=== PATIENT | female | born 1940 | race Caucasian/White ===

== ENCOUNTER → 2016-04-03 | Outpatient (REF) | payer MEDICARE, OTHER ==
[2016-04-03 12:16] LABS: BASO % 0.4 % (0.0-1.0); EOS # 0.1 K/mm3 (0.0-0.50); EOS % 2.4 % (0.0-3.0); LYMPH # 1.7 K/mm3 (1.5-4.5); LYMPH % 28.1 % (24.0-44.0); MEAN CORPUSCULAR HEMOGLOBIN 31.6 pg (27.0-33.0); MEAN CORPUSCULAR HGB CONC 33.2 g/dl (32.0-36.5); MEAN CORPUSCULAR VOLUME 95.2 fl (80.0-96.0); MONO # 0.3 K/mm3 (0.0-0.8); MONO % 4.3 % (0.0-5.0); NEUTROPHILS # 3.7 K/mm3 (1.8-7.7); NEUTROPHILS % 61.8 % (36.0-66.0); RED CELL DISTRIBUTION WIDTH 14.2 % (11.5-14.5); WHITE BLOOD COUNT 5.9 K/mm3 (4.0-10.0)
[2016-04-03 12:46] LABS: ALBUMIN/GLOBULIN RATIO 1.33 (1.00-1.93); ALKALINE PHOSPHATASE 104 U/L (45-117); ALT/SGPT 26 U/L (12-78); ANION GAP 11 MEQ/L (8-16); AST/SGOT 13 U/L (15-37); BILIRUBIN,TOTAL 0.9 MG/DL (0.2-1.0); BLOOD UREA NITROGEN 31 MG/DL (7-18); CARBON DIOXIDE LEVEL 26 MEQ/L (21-32); CHLORIDE LEVEL 106 MEQ/L (98-107); CHOLESTEROL LEVEL 186 MG/DL (<200); CREATININE FOR GFR 0.65 MG/DL (0.55-1.02); GLOMERULAR FILTRATION RATE > 60.0 (>39); GLUCOSE, FASTING 124 MG/DL (83-110); POTASSIUM SERUM 3.8 MEQ/L (3.5-5.1); SODIUM LEVEL 143 MEQ/L (136-145); TRIGLYCERIDES LEVEL 132 MG/DL (<150)
== END ==
LOC: M LABDRAW1 11:37
PROVIDERS: ATTEND Internal Medicine Cardiovascular Disease
DX: I50.32 Chronic diastolic (congestive) heart failure (principal); I35.0 Nonrheumatic aortic (valve) stenosis; E66.9 Obesity, unspecified

== ENCOUNTER 2016-04-13 14:17 | Inpatient (IN) | payer MEDICARE, OTHER ==
[~2016-04-13] VITALS: Ht 160 cm; Wt 83.0 kg
[2016-04-13 15:01] LABS: BASO % 0.2 % (0.0-1.0); EOS # 0.1 K/mm3 (0.0-0.50); EOS % 0.7 % (0.0-3.0); LARGE UNSTAINED CELL # 0.1 K/mm3 (0.0-0.4); LARGE UNSTAINED CELL % 1.2 % (0.0-4.0); LYMPH # 0.6 K/mm3 (1.5-4.5); LYMPH % 6.7 % (24.0-44.0); MEAN CORPUSCULAR HEMOGLOBIN 32.5 pg (27.0-33.0); MONO # 0.4 K/mm3 (0.0-0.8); MONO % 4.4 % (0.0-5.0); NEUTROPHILS # 7.6 K/mm3 (1.8-7.7); NEUTROPHILS % 86.8 % (36.0-66.0); PLATELET COUNT, AUTOMATED 126 k/mm3 (150-450); RED CELL DISTRIBUTION WIDTH 14.2 % (11.5-14.5); WHITE BLOOD COUNT 8.7 K/mm3 (4.0-10.0)
[2016-04-13 15:10] LABS: INR 1.97
--- NOTE | 2016-04-13 15:15 | REP ---
SEMIUPRIGHT AP PORTABLE CHEST: 04/13/2016 INDICATION: Chest pain. There has been a prior median sternotomy as well as valvular prosthesis within the heart. There is elevation of the left hemidiaphragm, mildly decreased from prior studies. There is left lower lobe atelectasis and/ or pleural effusion, moderate. There is small amount of right basilar atelectasis and pulmonary venous hypertension. 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 There is significant narrowing within the right subacromial space consistent with rotator cuff arthropathy. IMPRESSION: 1. Prior median sternotomy with mild cardiomegaly, unchanged. 2. Elevated left hemidiaphragm with left basilar atelectasis/infiltrate superimposed on pleural effusion. 3. Small amount of right basilar atelectasis. Pulmonary venous hypertension.. MTDD
[2016-04-13] MEDS ORDERED: MORPHINE 2 MG/ML 1ML SYRINGE As Ordered ONE (15:18)
[2016-04-13] MEDS ORDERED: ASPIRIN 81 MG CHEW TABLET As Ordered ONE (15:18)
[2016-04-13 15:32] LABS: ANION GAP 11 MEQ/L (8-16); BLOOD UREA NITROGEN 19 MG/DL (7-18); CARBON DIOXIDE LEVEL 27 MEQ/L (21-32); CHLORIDE LEVEL 97 MEQ/L (98-107); CREATININE FOR GFR 0.77 MG/DL (0.55-1.02); GLOMERULAR FILTRATION RATE > 60.0 (>39); GLUCOSE, FASTING 165 MG/DL (83-110); POTASSIUM SERUM 3.4 MEQ/L (3.5-5.1); SODIUM LEVEL 135 MEQ/L (136-145)
[2016-04-13] MEDS ORDERED: ISOVUE-370 76% 100ML VIAL (Q9967) As Ordered ONE ×2 (16:11→16:23)
--- NOTE | 2016-04-13 17:26 | REP ---
CTA CHEST, 04/13/2016: INDICATION: Pleuritic chest pain, elevated D-dimer. COMPARISON: Portable chest also performed earlier today on 04/13/2016 at 2:34 pm. TECHNIQUE: Following dynamic IV contrast administration with 75 mL Isovue-370 mg/mL 3 mm contiguous spiral axial sections were performed through the chest. FINDINGS: There has been a prior median sternotomy and there is a valvular prosthesis within the region of the aortic valve. The thoracic aorta is without aneurysm or dissection. Moderate calcifications are seen in the aortic arch. There is homogeneous opacification of the central pulmonary arteries without filling defects or findings to suggest pulmonary artery embolus. There is dense consolidation within the left lower lobe and lingula consistent with infiltrate and a small amount of atelectasis. There are no pleural effusions. A small amount of right basilar atelectasis and/or fibrotic scarring is present. Visualized portions of liver within normal limits. The spleen is incompletely included in view, but mildly enlarged measuring greater than 13.5 cm in length. The stomach is contracted in its visualized portions. Moderate atherosclerotic changes are noted in the abdominal aorta, which is ectatic. There is thickening of the adrenal glands which cannot be adequately assessed in the presence of IV contrast. Visualized portion of the pancreas within kian limits. Visualized portions of kidneys without hydronephrosis. IMPRESSION: 1. No visualized pulmonary artery emboli. 2. Dense consolidation within the left lower lobe and to a lesser extent lingula. consistent with infiltrate. Also there are a small amount of superimposed atelectatic changes. 3. Fibroatelectatic changes in the right base and the right middle lobe. 4. Thickening of adrenal glands, yet they are indeterminate, and cannot be adequately evaluated in the presence of IV contrast. Unreviewed MTDD
[2016-04-13] MEDS ORDERED: cefTRIAXone SOD 1 GM VIAL (J0696) As Ordered ONE (18:13)
[2016-04-13] MEDS ORDERED: DOXYCYCLINE HYCLATE 100 MG TAB As Ordered ONE (18:13)
[2016-04-13] MEDS ORDERED: traMADol 50 MG TAB As Ordered ONE (18:14)
--- NOTE | 2016-04-13 21:21 | ECGEPIP ---
Stationary ECG Study [facility] - ED Test Date: 2016-04-13 Pat Name: LAURA BRIDGES Department: Room: - Gender: F Hand Singer: [email or web address] : 1940 Requested By: ANA YANCEY Order Number: [id number] Reading MD: Rudy Aguero Measurements Intervals [place] Rate: 83 P: 24 IA: 176 QRS: -20 QRSD: 94 T: 14 QT: 379 QTc: 447 Interpretive Statements SINUS RHYTHM LEFT ATRIAL ENLARGEMENT POSSIBLE LEFT VENTRICULAR HYPERTROPHY INFERIOR MYOCARDIAL INFARCTION, PROBABLY OLD Electronically Signed On 04-13-2016 21:21:34 EST by Rudy Aguero
--- NOTE | 2016-04-13 21:21 | ECGEPIP ---
Stationary ECG Study [facility] - ED Test Date: 2016-04-13 Pat Name: LAURA BRIDGES Department: Room: - Gender: F Time Checker: rn : 1940 Requested By: Anita Hensley Order Number: [id number] Reading MD: Rudy Aguero Measurements Intervals [place] Rate: 83 P: 21 [place]: 172 QRS: -19 QRSD: 97 T: 12 QT: 383 QTc: 452 Interpretive Statements SINUS RHYTHM LEFT ATRIAL ENLARGEMENT LEFT VENTRICULAR HYPERTROPHY INFERIOR MYOCARDIAL INFARCTION, OF INDETERMINATE AGE NO PRIORS Electronically Signed On 04-13-2016 21:21:05 EST by Rudy Aguero
--- NOTE | 2016-04-13 21:34 | ECGEPIP ---
Stationary ECG Study [facility] - ED Test Date: 2016-04-13 Pat Name: LAURA BRIDGES Department: Room: - Gender: F Brass Burnisher: leola : 1940 Requested By: Anita Hensley Order Number: [id number] Reading MD: Rudy Aguero Measurements Intervals [place] Rate: 86 P: -20 DE: 140 QRS: -17 QRSD: 94 T: 15 QT: 361 QTc: 433 Interpretive Statements SINUS RHYTHM LAE MODERATE VOLTAGE CRITERIA FOR LVH, CONSIDER NORMAL VARIANT POSSIBLE PRIOR INFERIOR INFARCT Electronically Signed On 04-13-2016 21:34:23 EST by Rudy Aguero
[2016-04-13] MEDS ORDERED: IPRATROPIUM 0.5MG/ALBUTEROL 2.5MG INH SOL UD 3ML (DUONEB)(J7620) As Ordered ONE (22:23)
[2016-04-14] VITALS (7 sets, daily range): BP systolic 125–147; BP diastolic 57–72
[2016-04-14] MEDS ORDERED: SPIR25TA2 PO (00:23)
[2016-04-14] MEDS ORDERED: NEXI40CA PO (00:23)
[2016-04-14] MEDS ORDERED: CHLO125TA PO (00:23)
[2016-04-14] MEDS ORDERED: METO-207 PO (00:23)
[2016-04-14] MEDS ORDERED: ATOR40TA PO (00:23)
[2016-04-14] MEDS ORDERED: COUM1TAB14 PO (00:23)
[2016-04-14] MEDS ORDERED: ASPI81TA7 PO (00:23)
[2016-04-14] MEDS ORDERED: NITR4TASL SL (00:23)
[2016-04-14] MEDS ORDERED: TYLE650T35 PO (00:23)
[2016-04-14] MEDS ORDERED: TRAM50TA2 PO (00:23)
[2016-04-14] MEDS ORDERED: ONDANSETRON 4MG/2ML VIAL (J2405) IV PRN (00:30)
[2016-04-14] MEDS ORDERED: NITROGLYCERIN 0.4 MG SUBL TABLET SL PRN (00:45)
--- NOTE | 2016-04-14 01:41 | EDDOCDS ---
Physician Documentation [facility] Name: Laureen Bruce Age: 75 yrs Sex: Female : 1940 Arrival Date: 04/13/2016 Time: 14:17 Bed OBSERVATION Private : Tanika Disposition: 04/14/16 00:49 Hospitalization ordered by Matty Parada for Inpatient Admission. Preliminary diagnosis are Other pneumonia, unspecified organism, Hypoxemia. - Bed requested for PCU. - Status is Inpatient Admission. jf3 - Condition is Stable. - Problem is an acute exacerbation. - Symptoms have improved. Historical: - Allergies: Heparin (Anaphylaxis); - Home Meds: 1. atorvastatin 40 mg oral tab 1 tab nightly 2. Chlorthalidone 12.5 mg Oral 1 tab every -- 3. Coumadin 4 mg Oral tab 1 tab once daily 4. Meclizine Oral 1 tab 3 times per day as needed 5. metoprolol succinate 50 mg tab 1 tab once daily 6. Nexium 40 mg Oral cpDR 1 cap once daily 7. nitroglycerin 0.4 mg SL subl 1 tab every 5 minutes x 3 as needed 8. spironolactone 12.5mg Oral tab 1 tab once daily 9. tramadol 50 mg Oral tab 1 tab every 4-6 hours as needed - PMHx: Diabetes - NIDDM: uncontrolled; DVT; GERD; Hypercholesterolemia; Hypertension; AL; - PSHx: Bilateral Hip Replacement; Cholecystectomy; CABG; Aortic Valve Replacement, Mechanical; - Social history: Smoking status: Patient states was never smoker of tobacco. No barriers to communication noted, The patient speaks fluent Bengali, Speaks appropriately for age. - Family history: Not pertinent. - : The pt / caregiver states he / she is on anticoagulants: coumadin. Home medication list is obtained from the patient. - Exposure Risk Screening:: None identified. Vital Signs: 04/13 14:19 BP 104 / 62; Pulse 102; Resp 18 S; Temp 98.2(O); Pulse Ox 96% on R/A; Weight 72.57 kg / gr2 159.99 lbs (R); Height 5 ft. 5 in. (165.10 cm) (R); Pain 8/10; 14:33 Pulse 92 MON; Pulse Ox 99% ; jf3 14:34 BP 110 / 63 (auto/); jf3 15:02 Pulse 82 MON; Pulse Ox 93% ; jf3 15:04 BP 113 / 60 (auto/); jf3 15:17 Pulse 84 MON; Pulse Ox 93% ; jf3 15:19 BP 111 / 60 (auto/); jf3 15:21 Pulse 84 MON; Pulse Ox 92% ; jf3 15:22 BP 108 / 60 (auto/); jf3 15:48 Pulse 84 MON; Pulse Ox 91% ; jf3 15:49 BP 120 / 61 (auto/); jf3 16:34 BP 105 / 53 (auto/); jf3 16:37 Pulse 86 MON; Pulse Ox 94% ; jf3 16:48 Pulse 84 MON; Pulse Ox 94% ; jf3 16:49 BP 112 / 55 (auto/); jf3 17:04 BP 112 / 57 (auto/); jf3 17:04 Pulse 82 MON; Pulse Ox 93% ; jf3 17:14 Pulse 82 MON; Pulse Ox 94% ; jf3 17:19 BP 111 / 58 (auto/); jf3 17:33 Pulse 84 MON; Pulse Ox 95% ; jf3 17:34 BP 115 / 57 (auto/); jf3 17:48 Pulse 82 MON; Pulse Ox 93% ; jf3 17:49 BP 118 / 67 (auto/); jf3 18:04 BP 115 / 59 (auto/); jf3 18:05 Pulse 82 MON; Pulse Ox 93% ; jf3 18:19 BP 115 / 60 (auto/); jf3 18:19 Pulse 84 MON; Pulse Ox 92% ; jf3 18:24 Pulse 82 MON; Pulse Ox 96% ; jf3 18:25 BP 119 / 58 (auto/); jf3 18:32 Pulse 86 MON; Pulse Ox 92% ; jf3 18:34 BP 122 / 56 (auto/); jf3 18:48 Pulse 84 MON; Pulse Ox 92% ; jf3 18:49 BP 124 / 64 (auto/); jf3 19:03 Pulse 86 MON; Pulse Ox 91% ; jf3 19:04 BP 121 / 65 (auto/); jf3 19:19 BP 125 / 63 (auto/); jf3 19:19 Pulse 84 MON; Pulse Ox 93% ; jf3 19:28 Pulse 78 MON; Pulse Ox 92% ; jf3 19:34 BP 125 / 67 (auto/); jf3 19:49 BP 131 / 66 (auto/); jf3 19:50 Pulse 86 MON; Pulse Ox 92% ; jf3 20:04 BP 129 / 61 (auto/); jf3 20:04 Pulse 88 MON; Pulse Ox 92% ; jf3 20:19 BP 125 / 64 (auto/); jf3 20:21 Pulse 88 MON; Pulse Ox 93% ; jf3 21:17 BP 157 / 103 (auto/); jf3 21:19 Pulse 96 MON; Pulse Ox 96% ; jf3 21:31 Pulse 82 MON; Pulse Ox 98% ; jf3 21:32 BP 143 / 88 (auto/); jf3 21:46 Pulse 82 MON; Pulse Ox 98% ; jf3 21:47 BP 135 / 85 (auto/); jf3 22:01 Pulse 88 MON; Pulse Ox 98% ; jf3 22:02 BP 129 / 103 (auto/); jf3 22:17 BP 144 / 93 (auto/); jf3 22:17 Pulse 86 MON; Pulse Ox 98% ; jf3 22:31 Pulse 98 MON; Pulse Ox 97% ; jf3 22:32 BP 155 / 103 (auto/); jf3 22:32 Pulse 82 MON; Pulse Ox 96% ; jf3 22:34 BP 124 / 63 (auto/); jf3 22:35 Pulse 102 MON; Pulse Ox 97% ; jf3 22:36 BP 152 / 88 (auto/); jf3 22:46 Pulse 94 MON; Pulse Ox 97% ; jf3 22:47 BP 141 / 86 (auto/); jf3 22:47 Pulse 88 MON; Pulse Ox 94% ; jf3 22:49 BP 130 / 65 (auto/); jf3 23:03 Pulse 88 MON; Pulse Ox 93% ; jf3 23:04 BP 129 / 67 (auto/); jf3 23:16 BP 145 / 90; Pulse 90; Resp 18; Temp 98(TE); Pulse Ox 98% on R/A; jf3 23:19 BP 124 / 64 (auto/); jf3 23:19 Pulse 90 MON; Pulse Ox 94% ; jf3 23:34 BP 131 / 67 (auto/); jf3 23:35 Pulse 88 MON; Pulse Ox 94% ; jf3 04/14 00:04 BP 125 / 65 (auto/); jf3 00:04 Pulse 86 MON; Pulse Ox 95% ; jf3 00:19 BP 129 / 67 (auto/); jf3 00:19 Pulse 90 MON; Pulse Ox 96% ; jf3 00:33 Pulse 90 MON; Pulse Ox 94% ; jf3 00:34 BP 127 / 64 (auto/); jf3 00:49 BP 125 / 62 (auto/); jf3 00:49 Pulse 86 MON; Pulse Ox 94% ; jf3 00:59 Pulse 96 MON; Pulse Ox 95% ; jf3 01:04 BP 136 / 67 (auto/); jf3 01:18 Pulse 82 MON; Pulse Ox 95% ; jf3 01:19 BP 129 / 61 (auto/); jf3 01:25 BP 130 / 70; Pulse 86; Resp 18; Temp 99.1(O); Pulse Ox 95% 2 lpm ; Pain 8/10; jf3 04/13 14:19 Body Mass Index 26.63 (72.57 kg, 165.10 cm) gr2 MDM: 04/13 14:27 Country Singer/Pulse Ox/q 30 min VS ordered. sd1 14:27 IV Saline Lock ordered. sd1 14:27 Rhythm Strip to chart ordered. sd1 14:27 Undress patient appropriately for examination ordered. sd1 14:27 B-Type Natiuretic Peptide Ordered. EDMS 14:27 Basic Metabolic Profile Ordered. EDMS 14:27 CBC with Diff Ordered. EDMS 14:27 Cardiac Injury Profile Ordered. EDMS 14:27 Troponin Ordered. EDMS 14:29 portable chest Ordered. EDMS 14:29 ECG WITH READING ER PHYS+CARDIAG ordered. ED[facility] Order ordered. sd1 14:49 Aspirin Chewable Tablet 324 mg PO once ordered. sd1 14:50 morphine 2 mg IVP every 15 minutes; Document pain score/vitals after each dose (Hold if sd1 SBP < 90mmHg) x3 ordered. 14:51 PT/INR Ordered. EDMS 15:08 Misc Route Delivery Clerk Order complete. deg 15:15 [facility] [place] was scanned into [employer] and attached to record. jp5 15:15 Financial registration complete. jp5 15:26 B-Type Natiuretic Peptide Reviewed. sd1 15:26 CBC with Diff Reviewed. sd1 15:26 PT/INR Reviewed. sd1 15:29 portable chest Reviewed. sd1 15:35 Basic Metabolic Profile Reviewed. sd1 15:35 Cardiac Injury Profile Reviewed. sd1 15:35 Troponin Reviewed. sd1 15:48 D-DIMER QUANT Ordered. EDMS 15:58 Repeat EKG (put time details section) ordered. sd1 16:02 Repeat EKG (put time details section) complete. deg 16:02 ECG WITH READING ER PHYS ordered. EDMS 16:08 PT/INR Reviewed. sd1 16:08 D-DIMER QUANT Reviewed. sd1 16:10 CT Chest Angio R/O PE Ordered. EDMS 16:50 Redraw CIP &Troponin (put time in details section) ordered. sd1 16:50 Repeat EKG (put time details section) ordered. sd1 17:05 Redraw CIP &Troponin (put time in details section) complete. deg 17:05 Repeat EKG (put time details section) complete. deg 17:07 ECG WITH READING ER PHYS ordered. EDMS 17:07 CARDIAC MARKER PANEL Ordered. EDMS 17:33 cefTRIAXone 1 grams IVPB once over 30 mins; dilute in 50mL of NS or D5W ordered. sd1 17:34 Doxycycline 100 mg PO once ordered. sd1 17:35 traMADol 50 mg PO once ordered. sd1 21:36 CARDIAC MARKER PANEL Reviewed. mm11 21:36 CT Chest Angio R/O PE Reviewed. mm11 22:07 Albuterol-Ipratropium 3 ml Inhalation once ordered. mm11 22:07 Call Respiratory ordered. mm11 22:13 Call Respiratory complete. tmm1 23:26 BED REQUEST+ADM ordered. EDMS 04/14 00:33 INFLUENZA A&B RAPID ANTIGEN Ordered. EDMS 00:33 SPUTUM CULTURE AND GRAM STAIN Ordered. EDMS 00:34 Admission / Observation Status ordered. EDMS 00:34 NO ADDED SALT DIET ordered. EDMS 00:54 BLOOD CULTURES Ordered. EDMS 00:54 BLOOD CULTURES Ordered. EDMS 00:56 PROTHROMBIN TIME PROFILE\E\INR Ordered. EDMS 00:56 CARDIAC MARKER PANEL Ordered. EDMS 00:56 BASIC METABOLIC PROFILE Ordered. EDMS 00:56 CBC WITH DIFFERENTIAL Ordered. EDMS Administered Medications: 04/13 15:16 CANCELLED (Patient Refused): Ondansetron 4 mg IVP once jf3 15:25 Drug: Aspirin 243 mg [aspirin 81 mg chewable tablet (3 tabs)] {Note: pt took 1 81mg ASA jf3 earlier today. Dr Frazier aware.} Route: PO; 15:35 Not Given (Patient Refused): morphine 2 mg IVP every 15 minutes; Document pain jf3 score/vitals after each dose (Hold if SBP < 90mmHg) x3 18:30 Drug: cefTRIAXone 1 grams [ceftriaxone 1 gram solution for injection] Route: IVPB; jf3 Infused Over: 30 mins; Site: left antecubital; 20:24 Follow up: Response: No Adverse Reaction; IV Intake: 50ml jf3 18:30 Drug: Doxycycline 100 mg [doxycycline hyclate 100 mg tablet (1 tabs)] Route: PO; jf3 20:24 Follow up: Response: No Adverse Reaction jf3 18:30 Drug: traMADol 50 mg [tramadol 50 mg tablet (1 tabs)] Route: PO; jf3 20:24 Follow up: Response: Pain is decreased jf3 22:27 Drug: Albuterol-Ipratropium 3 ml [ipratropium-albuterol 0.5 mg-3 mg(2.5 mg base)/3 mL jc3 nebulization soln (3 mL)] Route: Inhalation; Signatures: Dispatcher [employer] EDMS Anita Hensley MD MD sd1 Anneliese Mccurdy, Kst Operator Unit deg Aranza Pleitez, RN RN Matthew De La Rosa RN RN mlb1 Onel Beard, DO mm11 McLear, Lora, RADIOLOGY SERVICES MANAGER RADIOLOGY SERVICES MANAGER tmm1 Laurie Velasquez jp5 Wilfredo Bettencourt,RN RN jf3 Leonardo Engel jc3 The chart was reviewed and I authenticate all verbal orders and agree with the evaluation and treatment provided.Corrections: (The following items were deleted from the chart) 15:16 14:50 Ondansetron 4 mg IVP once ordered. sd1 jf3 15:48 15:42 D-DIMER QUANT+LAB ordered. EDMS EDMS Attachments: 15:15 [facility] Payment Agreement jp5 MTDD
--- NOTE | 2016-04-14 01:42 | EDDOCDS ---
Nurse's Notes [facility] Name: Laureen Bruce Age: 75 yrs Sex: Female : 1940 Arrival Date: 04/13/2016 Time: 14:17 Bed OBSERVATION Private MD: Tanika Diagnosis: Other pneumonia, unspecified organism;Hypoxemia Presentation: 04/13 14:25 Presenting complaint: Patient states: Sub-sternal chest pain does not radiate began at mlb1 noon today. Aspirin was not taken prior to arrival. Adult Sepsis Screening: The patient does not have new or worsening altered mentation. Patient's respiratory rate is less than 22. Systolic blood pressure is greater than 100. Patient has a qSOFA score of 0- Negative Sepsis Screen. Suicide/Homicide risk assessment- the patient denies having any suicidal and/or homicidal ideations and does not present with any other emotional, behavioral or mental health complaints. Status: Patient is not a special services agent or dependent. Transition of care: patient was not received from another setting of care. 14:25 Acuity: FRANKY Level 2 mlb1 14:25 Method Of Arrival: Walkin/Carried/Asstd mlb1 Triage Assessment: 14:28 General: Appears in no apparent distress, Behavior is anxious, cooperative. Pain: mlb1 Location: mid-sternal area Pain currently is 5 out of 10 on a pain scale. Quality of pain is described as dull. The patient is triaged at the bedside. See Assessment in Nurses Notes section of ED record. Respiratory: Airway is patent Respiratory effort is even, unlabored, Reports pain with movement pain with respiration. 04/14 01:40 Cardiovascular: Chest pain is described as mild, radiates Does not radiate. episodes jf3 began . Historical: - Allergies: Heparin (Anaphylaxis); - Home Meds: 1. atorvastatin 40 mg oral tab 1 tab nightly 2. Chlorthalidone 12.5 mg Oral 1 tab every -- 3. Coumadin 4 mg Oral tab 1 tab once daily 4. Meclizine Oral 1 tab 3 times per day as needed 5. metoprolol succinate 50 mg tab 1 tab once daily 6. Nexium 40 mg Oral cpDR 1 cap once daily 7. nitroglycerin 0.4 mg SL subl 1 tab every 5 minutes x 3 as needed 8. spironolactone 12.5mg Oral tab 1 tab once daily 9. tramadol 50 mg Oral tab 1 tab every 4-6 hours as needed - PMHx: Diabetes - NIDDM: uncontrolled; DVT; GERD; Hypercholesterolemia; Hypertension; UT; - PSHx: Bilateral Hip Replacement; Cholecystectomy; CABG; Aortic Valve Replacement, Mechanical; - Social history: Smoking status: Patient states was never smoker of tobacco. No barriers to communication noted, The patient speaks fluent Argentine, Speaks appropriately for age. - Family history: Not pertinent. - : The pt / caregiver states he / she is on anticoagulants: coumadin. Home medication list is obtained from the patient. - Exposure Risk Screening:: None identified. Screenin/19 14:56 Screening information is obtained from the patient. Fall risk: No risks identified. jf3 Assistance ADL's: requires no assistance with activities of daily living. Abuse/DV Screen: The patient / caregiver reports he/she is: not in a situation that causes fear, pain or injury. Nutritional screening: No deficits noted. Advance Directives: Currently, there is a health care proxy, Brennan Roy, son. There is no active DNR order. home support is adequate. Assessment: 14:56 Adult Sepsis Screening: The patient does not have new or worsening altered mentation. jf3 Patient's respiratory rate is less than 22. Systolic blood pressure is greater than 100. Patient has a qSOFA score of 0- Negative Sepsis Screen. General: Appears in no apparent distress, comfortable, Behavior is cooperative. Pain: Location: mid-sternal area Pain currently is 5 out of 10 on a pain scale. Neurological: Level of Consciousness is awake, alert, Oriented to person, place, time. Cardiovascular: Capillary refill < 3 seconds Heart tones S1 S2 present Rhythm is sinus rhythm No ectopy. Chest pain is described as mild. Respiratory: Airway is patent Respiratory effort is even, unlabored, Respiratory pattern is regular, symmetrical, Breath sounds are clear bilaterally. Respiratory: Reports cough that is pain with respiration Denies shortness of breath. GI: Abdomen is obese, Bowel sounds present X 4 quads. Abd is soft and non tender X 4 quads. Reports nausea. Derm: Skin is normal. 16:00 General: Appears in no apparent distress, comfortable, Behavior is cooperative, Pt jf3 resting supine on stretcher. respirations easy and unlabored. Pt c/o pain but does not want pain medication. Call light in reach. Will continue to monitor. 17:13 General: Appears in no apparent distress, comfortable, Behavior is cooperative, Pt jf3 resting supine on stretcher. Respirations easy and unlabored. Call light in reach. Will continue to monitor. 18:15 General: Appears in no apparent distress, comfortable, Behavior is cooperative, Pt jf3 resting supine on stretcher. Respirations easy and unlabored. Call light in reach. Will continue to monitor. 19:15 General: Appears in no apparent distress, comfortable, Behavior is cooperative. jf3 Neurological: Level of Consciousness is awake, alert. Respiratory: Airway is patent Respiratory effort is even, unlabored, Respiratory pattern is regular, symmetrical. 20:24 General: Appears in no apparent distress, comfortable, Behavior is cooperative, Pt jf3 restring supine on stretcher. respirations easy and unlabored. Pt states pain has decreased but she is still having some pain, states she does not want anything stronger for pain other than her tramadol. 21:30 General: Appears in no apparent distress, comfortable, Behavior is cooperative, resting jf3 supine on stretcher. respirations easy and unlabored. Will continue to monitor. 22:30 General: Appears in no apparent distress, Behavior is cooperative. Neurological: Level jf3 of Consciousness is awake, alert, Oriented to person, place, time. Cardiovascular: Capillary refill < 3 seconds. Respiratory: Airway is patent Respiratory effort is even, unlabored, Respiratory pattern is regular, symmetrical. 04/14 00:30 General: Appears in no apparent distress, comfortable, Behavior is cooperative. jf3 Neurological: Level of Consciousness is awake, alert, Oriented to person, place, time. Cardiovascular: Capillary refill < 3 seconds. Respiratory: Airway is patent Respiratory effort is even, unlabored, Respiratory pattern is regular, symmetrical. 01:30 General: Appears in no apparent distress, comfortable, Behavior is cooperative. Pain: jf3 Pain currently is 8 out of 10 on a pain scale. Neurological: Level of Consciousness is awake, alert, Oriented to person, place, time. Cardiovascular: Capillary refill < 3 seconds Heart tones S1 S2 present. Respiratory: Airway is patent Respiratory effort is even, unlabored, Respiratory pattern is regular, symmetrical. Derm: Skin is pink, warm & dry. Vital Signs: 04/13 14:19 BP 104 / 62; Pulse 102; Resp 18 S; Temp 98.2(O); Pulse Ox 96% on R/A; Weight 72.57 kg gr2 (R); Height 5 ft. 5 in. (165.10 cm) (R); Pain 8/10; 14:33 Pulse 92 MON; Pulse Ox 99% ; jf3 14:34 BP 110 / 63 (auto/); jf3 15:02 Pulse 82 MON; Pulse Ox 93% ; jf3 15:04 BP 113 / 60 (auto/); jf3 15:17 Pulse 84 MON; Pulse Ox 93% ; jf3 15:19 BP 111 / 60 (auto/); jf3 15:21 Pulse 84 MON; Pulse Ox 92% ; jf3 15:22 BP 108 / 60 (auto/); jf3 15:48 Pulse 84 MON; Pulse Ox 91% ; jf3 15:49 BP 120 / 61 (auto/); jf3 16:34 BP 105 / 53 (auto/); jf3 16:37 Pulse 86 MON; Pulse Ox 94% ; jf3 16:48 Pulse 84 MON; Pulse Ox 94% ; jf3 16:49 BP 112 / 55 (auto/); jf3 17:04 BP 112 / 57 (auto/); jf3 17:04 Pulse 82 MON; Pulse Ox 93% ; jf3 17:14 Pulse 82 MON; Pulse Ox 94% ; jf3 17:19 BP 111 / 58 (auto/); jf3 17:33 Pulse 84 MON; Pulse Ox 95% ; jf3 17:34 BP 115 / 57 (auto/); jf3 17:48 Pulse 82 MON; Pulse Ox 93% ; jf3 17:49 BP 118 / 67 (auto/); jf3 18:04 BP 115 / 59 (auto/); jf3 18:05 Pulse 82 MON; Pulse Ox 93% ; jf3 18:19 BP 115 / 60 (auto/); jf3 18:19 Pulse 84 MON; Pulse Ox 92% ; jf3 18:24 Pulse 82 MON; Pulse Ox 96% ; jf3 18:25 BP 119 / 58 (auto/); jf3 18:32 Pulse 86 MON; Pulse Ox 92% ; jf3 18:34 BP 122 / 56 (auto/); jf3 18:48 Pulse 84 MON; Pulse Ox 92% ; jf3 18:49 BP 124 / 64 (auto/); jf3 19:03 Pulse 86 MON; Pulse Ox 91% ; jf3 19:04 BP 121 / 65 (auto/); jf3 19:19 BP 125 / 63 (auto/); jf3 19:19 Pulse 84 MON; Pulse Ox 93% ; jf3 19:28 Pulse 78 MON; Pulse Ox 92% ; jf3 19:34 BP 125 / 67 (auto/); jf3 19:49 BP 131 / 66 (auto/); jf3 19:50 Pulse 86 MON; Pulse Ox 92% ; jf3 20:04 BP 129 / 61 (auto/); jf3 20:04 Pulse 88 MON; Pulse Ox 92% ; jf3 20:19 BP 125 / 64 (auto/); jf3 20:21 Pulse 88 MON; Pulse Ox 93% ; jf3 21:17 BP 157 / 103 (auto/); jf3 21:19 Pulse 96 MON; Pulse Ox 96% ; jf3 21:31 Pulse 82 MON; Pulse Ox 98% ; jf3 21:32 BP 143 / 88 (auto/); jf3 21:46 Pulse 82 MON; Pulse Ox 98% ; jf3 21:47 BP 135 / 85 (auto/); jf3 22:01 Pulse 88 MON; Pulse Ox 98% ; jf3 22:02 BP 129 / 103 (auto/); jf3 22:17 BP 144 / 93 (auto/); jf3 22:17 Pulse 86 MON; Pulse Ox 98% ; jf3 22:31 Pulse 98 MON; Pulse Ox 97% ; jf3 22:32 BP 155 / 103 (auto/); jf3 22:32 Pulse 82 MON; Pulse Ox 96% ; jf3 22:34 BP 124 / 63 (auto/); jf3 22:35 Pulse 102 MON; Pulse Ox 97% ; jf3 22:36 BP 152 / 88 (auto/); jf3 22:46 Pulse 94 MON; Pulse Ox 97% ; jf3 22:47 BP 141 / 86 (auto/); jf3 22:47 Pulse 88 MON; Pulse Ox 94% ; jf3 22:49 BP 130 / 65 (auto/); jf3 23:03 Pulse 88 MON; Pulse Ox 93% ; jf3 23:04 BP 129 / 67 (auto/); jf3 23:16 BP 145 / 90; Pulse 90; Resp 18; Temp 98(TE); Pulse Ox 98% on R/A; jf3 23:19 BP 124 / 64 (auto/); jf3 23:19 Pulse 90 MON; Pulse Ox 94% ; jf3 23:34 BP 131 / 67 (auto/); jf3 23:35 Pulse 88 MON; Pulse Ox 94% ; jf3 04/14 00:04 BP 125 / 65 (auto/); jf3 00:04 Pulse 86 MON; Pulse Ox 95% ; jf3 00:19 BP 129 / 67 (auto/); jf3 00:19 Pulse 90 MON; Pulse Ox 96% ; jf3 00:33 Pulse 90 MON; Pulse Ox 94% ; jf3 00:34 BP 127 / 64 (auto/); jf3 00:49 BP 125 / 62 (auto/); jf3 00:49 Pulse 86 MON; Pulse Ox 94% ; jf3 00:59 Pulse 96 MON; Pulse Ox 95% ; jf3 01:04 BP 136 / 67 (auto/); jf3 01:18 Pulse 82 MON; Pulse Ox 95% ; jf3 01:19 BP 129 / 61 (auto/); jf3 01:25 BP 130 / 70; Pulse 86; Resp 18; Temp 99.1(O); Pulse Ox 95% 2 lpm ; Pain 8/10; jf3 04/13 14:19 Body Mass Index 26.63 (72.57 kg, 165.10 cm) gr2 Vitals: 04/13 14:19 Log In Time: April 13, 2016 at 14:19. RN notified that patient meets Red Flag gr2 criteria. ED Course: 14:19 Patient visited by Nabor Son. gr2 14:19 Tanika is Private Physician. gr2 14:19 Patient moved to Waiting gr2 14:20 Patient visited by Nabor Son. gr2 14:20 Patient moved to Pre RCE gr2 14:21 Patient moved to 7 gr2 14:25 Patient visited by Matthew Liz, RN. mlb1 14:26 Triage Initiated mlb1 14:29 Patient visited by Matthew Liz, DEN. mlb1 14:38 Anita Hensley MD is Attending Physician. sd1 14:41 Patient visited by Anita Hensley MD. sd1 14:49 EKG done. (by ED staff). Reviewed by Anita Hensley MD. rn1 14:55 PT/INR Sent. jf3 14:56 The patient / caregiver is instructed regarding the plan of care and ED course. Cardiac jf3 monitor on. Pulse ox on. NIBP on. 14:56 B-Type Natiuretic Peptide Sent. jf3 14:56 Basic Metabolic Profile Sent. jf3 14:56 CBC with Diff Sent. jf3 14:56 Cardiac Injury Profile Sent. jf3 14:56 Troponin Sent. jf3 14:56 Inserted saline lock: 20 gauge in left antecubital area The patient tolerated the jf3 procedure well. No procedures done that require assistance. 15:00 Patient visited by Wilfredo Bettencourt RN. jf3 15:15 [facility] Payment Agreement was scanned into [employer] and attached to record. jp5 15:26 portable chest Returned. EDMS 15:27 Patient visited by Zonia Silva PCA. jlf 16:17 Patient visited by Zonia Silva PCA. jlf 16:17 Patient visited by Zonia Silva PCA. jlf 16:17 EKG done. (by ED staff). Reviewed by Anita Hensley MD. jlf 16:53 Patient visited by Zonia Silva PCA. jlf 17:14 Patient visited by Wilfredo Bettencourt RN. jf3 17:35 Patient visited by Zonia Silva PCA. jlf 17:36 Patient moved to OBSERVATION sd1 18:10 CT Chest Angio R/O PE Returned. EDMS 18:40 Patient visited by Wilfredo Bettencourt RN. jf3 19:22 Attending Physician role handed off by Anita Hensley MD mm11 19:22 Onel Beard DO is Attending Physician. mm11 20:24 CARDIAC MARKER PANEL Sent. jf3 20:26 Patient visited by Wilfredo Bettencourt RN. jf3 20:33 EKG done. (by ED staff). Reviewed by Onel Beard DO. jmv 20:34 Patient visited by Clifford Traylor PCA. jmv 21:58 EKG-ADULT Returned. EDMS 21:58 ECG WITH READING ER PHYS Returned. EDMS 21:59 ECG WITH READING ER PHYS Returned. EDMS 22:39 Cammie Maya,RN is Primary Nurse. cf2 22:39 Patient visited by Cammie Maya RN. cf2 23:05 portable chest Returned. EDMS 23:06 CT Chest Angio R/O PE Returned. EDMS 04/14 00:48 Matty Parada MD is Hospitalizing Provider. mm11 Administered Medications: 04/13 15:16 CANCELLED (Patient Refused): Ondansetron 4 mg IVP once jf3 15:25 Drug: Aspirin 243 mg [aspirin 81 mg chewable tablet (3 tabs)] {Note: pt took 1 81mg ASA jf3 earlier today. Dr Frazier aware.} Route: PO; 15:35 Not Given (Patient Refused): morphine 2 mg IVP every 15 minutes; Document pain jf3 score/vitals after each dose (Hold if SBP < 90mmHg) x3 18:30 Drug: cefTRIAXone 1 grams [ceftriaxone 1 gram solution for injection] Route: IVPB; jf3 Infused Over: 30 mins; Site: left antecubital; 20:24 Follow up: Response: No Adverse Reaction; IV Intake: 50ml jf3 18:30 Drug: Doxycycline 100 mg [doxycycline hyclate 100 mg tablet (1 tabs)] Route: PO; jf3 20:24 Follow up: Response: No Adverse Reaction jf3 18:30 Drug: traMADol 50 mg [tramadol 50 mg tablet (1 tabs)] Route: PO; jf3 20:24 Follow up: Response: Pain is decreased jf3 22:27 Drug: Albuterol-Ipratropium 3 ml [ipratropium-albuterol 0.5 mg-3 mg(2.5 mg base)/3 mL jc3 nebulization soln (3 mL)] Route: Inhalation; Intake: 20:24 IV: 50.00ml; Total: 50.00ml. jf3 RT: 22:27 Initial Med Neb Given as ordered. O2 via nasal cannula \T\ 2L/min. Respiratory: Breath jc3 sounds are coarse bilaterally. Breath sounds are diminished. 22:27 O2 via Patient was on room air with a SpO2 of 88-90. Put patient on 2L NC, SpO2 - 94%. jc3 22:33 O2 via leaving patient on room air to see if SpO2 will improve post nebulizer treatment.jc3 04/14 00:15 O2 via placed patient on 2L NC. SpO2 82-88 on room air. jc3 Order Results: Lab Order: B-Type Natiuretic Peptide; SPEC'M 04/13/16 14:54 Test: BRAIN NATRIURETIC PEPTIDE; Value: 332; Range: <100; Abnormal: Above high normal; Units: PG/ML; Status: F Lab Order: Basic Metabolic Profile; SPEC'M 04/13/16 14:54 Test: GLUCOSE, FASTING; Value: 165; Range: 83-110; Abnormal: Above high normal; Units: MG/DL; Status: F Test: BLOOD UREA NITROGEN; Value: 19; Range: 7-18; Abnormal: Above high normal; Units: MG/DL; Status: F Test: CREATININE FOR GFR; Value: 0.77; Range: 0.55-1.02; Units: MG/DL; Status: F Test: GLOMERULAR FILTRATION RATE; Value: > 60.0; Range: >39; Status: F Test: SODIUM LEVEL; Value: 135; Range: 136-145; Abnormal: Below low normal; Units: MEQ/L; Status: F Test: POTASSIUM SERUM; Value: 3.4; Range: 3.5-5.1; Abnormal: Below low normal; Units: MEQ/L; Status: F Test: CHLORIDE LEVEL; Value: 97; Range: 98-107; Abnormal: Below low normal; Units: MEQ/L; Status: F Test: CARBON DIOXIDE LEVEL; Value: 27; Range: 21-32; Units: MEQ/L; Status: F Test: ANION GAP; Value: 11; Range: 8-16; Units: MEQ/L; Status: F Test: CALCIUM LEVEL; Value: 9.0; Range: 8.8-10.2; Units: MG/DL; Status: F Test Note: ; Units are mL/min/1.73 m2 Chronic Kidney Disease Staging per NKF: Stage I & II GFR >=60 Normal to Mildly Decreased Stage III GFR 30-59 Moderately Decreased Stage IV GFR 15-29 Severely Decreased Stage V GFR <15 Very Little GFR Left ESRD GFR <15 on MANAGER STUDY Lab Order: CBC with Diff; SPEC'M 04/13/16 14:54 Test: WHITE BLOOD COUNT; Value: 8.7; Range: 4.0-10.0; Units: K/mm3; Status: F Test: RED BLOOD COUNT; Value: 3.90; Range: 4.00-5.40; Abnormal: Below low normal; Units: M/mm3; Status: F Test: HEMOGLOBIN; Value: 12.7; Range: 12.0-16.0; Units: g/dl; Status: F Test: HEMATOCRIT; Value: 36.3; Range: 36.0-47.0; Units: %; Status: F Test: MEAN CORPUSCULAR VOLUME; Value: 93.0; Range: 80.0-96.0; Units: fl; Status: F Test: MEAN CORPUSCULAR HEMOGLOBIN; Value: 32.5; Range: 27.0-33.0; Units: pg; Status: F Test: MEAN CORPUSCULAR HGB CONC; Value: 35.0; Range: 32.0-36.5; Units: g/dl; Status: F Test: RED CELL DISTRIBUTION WIDTH; Value: 14.2; Range: 11.5-14.5; Units: %; Status: F Test: PLATELET COUNT, AUTOMATED; Value: 126; Range: 150-450; Abnormal: Below low normal; Units: k/mm3; Status: F Test: NEUTROPHILS %; Value: 86.8; Range: 36.0-66.0; Abnormal: Above high normal; Units: %; Status: F Test: LYMPH %; Value: 6.7; Range: 24.0-44.0; Abnormal: Below low normal; Units: %; Status: F Test: MONO %; Value: 4.4; Range: 0.0-5.0; Units: %; Status: F Test: EOS %; Value: 0.7; Range: 0.0-3.0; Units: %; Status: F Test: BASO %; Value: 0.2; Range: 0.0-1.0; Units: %; Status: F Test: LARGE UNSTAINED CELL %; Value: 1.2; Range: 0.0-4.0; Units: %; Status: F Test: NEUTROPHILS #; Value: 7.6; Range: 1.8-7.7; Units: K/mm3; Status: F Test: LYMPH #; Value: 0.6; Range: 1.5-4.5; Abnormal: Below low normal; Units: K/mm3; Status: F Test: MONO #; Value: 0.4; Range: 0.0-0.8; Units: K/mm3; Status: F Test: EOS #; Value: 0.1; Range: 0.0-0.50; Units: K/mm3; Status: F Test: BASO #; Value: 0.0; Range: 0.0-0.2; Units: K/mm3; Status: F Test: LARGE UNSTAINED CELL #; Value: 0.1; Range: 0.0-0.4; Units: K/mm3; Status: F Lab Order: Cardiac Injury Profile; [facility] 04/13/16 14:54 Test: CPK CREATINE PHOSPHOKINASE; Value: 155; Range: 26-192; Units: U/L; Status: F Test: CK-MB VALUE MASS; Value: 1.5; Range: 0.0-3.6; Units: NG/ML; Status: F Test: MB/CK RELATIVE INDEX; Value: 0.96; Range: < OR =4; Status: F Test Note: ; DIAGNOSIS CRITERIA MMB ng/ml Relative Index (RI) NON-AMI < or = 5 N/A FRANZ ZONE > 5 < or = 4 AMI > 5 > 4 Lab Order: Troponin; [facility] 04/13/16 14:54 Test: TROPONIN I; Value: 0.02; Range: < 0.10; Units: NG/ML; Status: F Test Note: ; Troponin I Reference Interval for [employer] LOCI: 99th Percentile= 0.00-0.045 ng/ml Risk Stratification: <= 0.10 ng/ml Decreased Risk for Adverse Clinical Events. 0.10-1.50 ng/ml Increased Risk for Adverse Clinical Events. Evaluation of additional criterion and/or repeat testing in 2-6 hours is suggested to rule out myocardial damage. >= 1.50 ng/ml Indicative of Myocardial Injury. Lab Order: PT/INR; [facility] 04/13/16 14:54 Test: PROTHROMBIN TIME; Value: 22.5; Range: 12.3-14.5; Abnormal: Above high normal; Units: SECONDS; Status: F Test: INR; Value: 1.97; Status: F Test Note: ; THERAPUTIC HUMAN INR VALUES INDICATIONS NORMAL RANGES PROPHYLAXIS/TREATMENT OF: VENOUS THROMBOSIS 2.0-3.0 PULMONARY EMBOLISM 2.0-3.0 PREVENTION OF SYSTEMIC EMBOLISM FROM: TISSUE HEART VALVES 2.0-3.0 ACUTE MYOCARDIAL INFARCTION 2.0-3.0 VALVULAR HEART DISEASE 2.0-3.0 ATRIAL FIBRILLATION 2.0-3.0 MECHANICAL VALVES(HIGH RISK) 2.5-3.5 RECURRENT MYOCARDIAL INFARCTION 2.5-3.5 Test: D-DIMER QUANT; Range: <500; Units: ng/ml; Status: I Lab Order: D-DIMER QUANT; SPEC'M 04/13/16 14:54 Test: D-DIMER QUANT; Value: 635.9; Range: <500; Abnormal: Above high normal; Units: ng/ml; Status: F Lab Order: CARDIAC MARKER PANEL; SPEC'M 04/13/16 20:22 Test: CPK CREATINE PHOSPHOKINASE; Value: 118; Range: 26-192; Units: U/L; Status: F Test: CK-MB VALUE MASS; Value: 1.0; Range: 0.0-3.6; Units: NG/ML; Status: F Test: MB/CK RELATIVE INDEX; Value: 0.84; Range: < OR =4; Status: F Test: TROPONIN I; Value: < 0.02; Range: < 0.10; Units: NG/ML; Status: F Test Note: ; DIAGNOSIS CRITERIA MMB ng/ml Relative Index (RI) NON-AMI < or = 5 N/A FRANZ ZONE > 5 < or = 4 AMI > 5 > 4 Radiology Order: portable chest Test: portable chest REASON FOR EXAMINATION: Chest Pain; ; SEMIUPRIGHT AP PORTABLE CHEST: 04/13/2016; ; INDICATION: Chest pain.; ; There has been a prior median sternotomy as well as valvular prosthesis within; the heart. There is elevation of the left hemidiaphragm, mildly decreased from; prior studies. There is left lower lobe atelectasis and/ or pleural effusion,; moderate. 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 There is; significant narrowing within the right subacromial space consistent with rotator; cuff arthropathy.; ; IMPRESSION:; 1. Prior median sternotomy with mild cardiomegaly, unchanged.; 2. Elevated left hemidiaphragm with left basilar atelectasis/infiltrate; superimposed on pleural effusion.; 3. Small amount of right basilar atelectasis. Pulmonary venous hypertension..; ; MTDD Radiology Order: EKG-ADULT Test: EKG-ADULT REASON FOR EXAMINATION: Chest Pain; Stationary ECG Study; [facility] ED; ; Test Date: 2016-04-13; Pat Name: LAUREEN BRUCE Department:; Room: -; Gender: F Benzol Operator: [email or web address]; : 1940 Requested By: Anita Hensley; Order Number: [id number] Reading MD: Rudy Aguero; Measurements; Intervals Dola; Rate: 83 P: 21; MT: 172 QRS: -19; QRSD: 97 T: 12; QT: 383; QTc: 452; Interpretive Statements; SINUS RHYTHM; LEFT ATRIAL ENLARGEMENT; LEFT VENTRICULAR HYPERTROPHY; INFERIOR MYOCARDIAL INFARCTION, OF INDETERMINATE AGE; NO PRIORS; Electronically Signed On 04-13-2016 21:21:05 EST by Rudy Aguero; Radiology Order: ECG WITH READING ER PHYS Test: ECG WITH READING ER PHYS REASON FOR EXAMINATION: CHEST PAIN; Stationary ECG Study; [facility] ED; ; Test Date: 2016-04-13; Pat Name: LAUREEN BRUCE Department:; Room: -; Gender: F Benzol Operator: [email or web address]; : 1940 Requested By: ANA YANCEY; Order Number: [id number] Reading MD: Rudy Aguero; Measurements; Intervals Dola; Rate: 83 P: 24; MT: 176 QRS: -20; QRSD: 94 T: 14; QT: 379; QTc: 447; Interpretive Statements; SINUS RHYTHM; LEFT ATRIAL ENLARGEMENT; POSSIBLE LEFT VENTRICULAR HYPERTROPHY; INFERIOR MYOCARDIAL INFARCTION, PROBABLY OLD; ; Electronically Signed On 04-13-2016 21:21:34 EST by Rudy Aguero; Radiology Order: CT Chest Angio R/O PE Test: CT Chest Angio R/O PE REASON FOR EXAMINATION: pleuritic cp elevated d-dimer; CTA CHEST, 04/13/2016:; ; INDICATION: Pleuritic chest pain, elevated D-dimer.; ; COMPARISON: Portable chest also performed earlier today on 04/13/2016 at 2:34; pm.; ; TECHNIQUE: Following dynamic IV contrast administration with 75 mL Isovue-370; mg/mL 3 mm contiguous spiral axial sections were performed through the chest.; ; FINDINGS: There has been a prior median sternotomy and there is a valvular; prosthesis within the region of the aortic valve. The thoracic aorta is without; aneurysm or dissection. Moderate calcifications are seen in the aortic arch.; There is homogeneous opacification of the central pulmonary arteries without; filling defects or findings to suggest pulmonary artery embolus. There is dense; consolidation within the left lower lobe and lingula consistent with infiltrate; and a small amount of atelectasis. There are no pleural effusions. A small; amount; of right basilar atelectasis and/or fibrotic scarring is present.; ; Visualized portions of liver within normal limits. The spleen is incompletely; included in view, but mildly enlarged measuring greater than 13.5 cm in length.; The stomach is contracted in its visualized portions. Moderate atherosclerotic; changes are noted in the abdominal aorta, which is ectatic. There is thickening; of the adrenal glands which cannot be adequately assessed in the presence of IV; contrast. Visualized portion of the pancreas within kian limits.; ; Visualized portions of kidneys without hydronephrosis.; ; IMPRESSION:; 1. No visualized pulmonary artery emboli.; 2. Dense consolidation within the left lower lobe and to a lesser extent; lingula.; consistent with infiltrate. Also there are a small amount of superimposed; atelectatic changes.; 3. Fibroatelectatic changes in the right base and the right middle lobe.; 4. Thickening of adrenal glands, yet they are indeterminate, and cannot be; adequately; evaluated in the presence of IV contrast.; ; ; ; Unreviewed; MTDD Radiology Order: ECG WITH READING ER PHYS Test: ECG WITH READING ER PHYS REASON FOR EXAMINATION: CHEST PAIN; Stationary ECG Study; [facility] - ED; ; Test Date: 2016-04-13; Pat Name: LAUREEN BRUCE Department:; Room: -; Gender: F Benzol Operator: leola; : 1940 Requested By: Anita Hensley; Order Number: [id number] Reading MD: Rudy Aguero; Measurements; Intervals Dola; Rate: 86 P: -20; MT: 140 QRS: -17; QRSD: 94 T: 15; QT: 361; QTc: 433; Interpretive Statements; SINUS RHYTHM; LAE; MODERATE VOLTAGE CRITERIA FOR LVH, CONSIDER NORMAL VARIANT; POSSIBLE PRIOR INFERIOR INFARCT; Electronically Signed On 04-13-2016 21:34:23 EST by Rudy Aguero; Outcome: 00:49 Decision to Hospitalize by Provider. mm11 01:39 Discharge Assessment: patient administered narcotics - yes. Patient was admitted to the [address] or transferred to another facility. The following High Risk Discharge criteria are identified: None. Admitted to PCU accompanied by nurse, accompanied by tech, via stretcher, with oxygen, on monitor, with chart. Condition: good. CT Study completed. Admission hand-off: Report Faxed Fax receipt verified by DEN Fragoso. Property :Personal belongings accompany Pt. 01:41 Patient left the ED. [facility] Signatures: Dispatcher [employer] EDMS Anita Hensley MD MD sd1 Matthew Liz RN RN mlb1 Onel Beard, DO mm11 Leonardo Engel jc3 Nabor Son gr2 Zonia Silva, LEAD NUCLEAR MEDICINE TECHNOLOGIST LEAD NUCLEAR MEDICINE TECHNOLOGIST jlf Robbie Duong rn1 Laurie Velasquez jp5 Wilfredo Bettencourt,RN RN jf3 Cammie Maya,RN RN cf2 Clifford Traylor, LEAD NUCLEAR MEDICINE TECHNOLOGIST LEAD NUCLEAR MEDICINE TECHNOLOGIST jmv Corrections: (The following items were deleted from the chart) 04/13 23:21 21:30 General: Appears in no apparent distress, comfortable, Behavior is cooperative, jf3 Pt resting supine on stretcher. 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 Respirations easy and unlabored. Will continue to monitor. [facility] 23: 21:30 Neurological: 3 [facility] 23:21 21:30 General: [place] [id number] 23:21 22:30 General: Appears in no apparent distress, comfortable, Behavior is cooperative, jf3 Pt resting supine on stretcher with eyes closed. Respirations easy and unlabored. Will continue to monitor. [facility] 23:21 23:20 General: Appears in no apparent distress, comfortable, Behavior is agitated, Pt jf3 with copius liquid stool, incontinent. [facility] 23:21 23:20 Neurological: Level of Consciousness is awake, alert, [place] [id number] 23:21 23:20 Cardiovascular: Capillary refill < 3 seconds [place] [id number] 23:21 23:20 Respiratory: Airway is patent Respiratory effort is even, unlabored, Respiratory jf3 pattern is regular, symmetrical, jf3 23:20 Derm: Skin is normal, jf3 jf3 MTDD
[2016-04-14] MEDS: AZITHROMYCIN INJ 500 MG, VIAL MATE ADAPTER 1 EACH in D5W 250 ML IV SCH (03:00)
[2016-04-14] MEDS ORDERED: SLF 3 ML SYR IV PRN (03:00)
[2016-04-14] MEDS: cefTRIAXone SOD 2 GM in D5W MINI-BAG PLUS 50 ML IV SCH (04:30)
[2016-04-14] MEDS: ATORVASTATIN 20 MG TAB PO SCH ×2 (04:30→21:49)
[2016-04-14] MEDS: WARFARIN SOD 4 MG TAB PO SCH ×2 (04:30→18:37)
--- NOTE | 2016-04-14 05:31 | HPE ---
DATE OF ADMISSION: 04/14/2016 This is a patient of Dr. Sagastume and Grecia Jimenez. Junior Assistant Manager is Dr. Cheng. She has previously been seen at the [facility]. CHIEF COMPLAINT: I was hurting in there so bad. HISTORY OF PRESENT ILLNESS: As follows: This is a 75-year-old female who was last feeling well 4 days ago. She began developing chest discomfort substernally on Sunday the . It was just a general sensation that something was not right. She has a hiatal hernia. She thought it was related to that. On Sunday, she came to have the odd feeling substernally. It did not radiate and it went on to becoming hard, dull pressure like a cramp today. She had seen Dr. Cheng this week and was given a clean bill of health. She has also had some nasal congestion, more on the right than the left and has felt as though the right side of her head was filled like an air balloon and had subjectively decreased hearing in that ear. She has had no fever or chills. She has not produced any sputum. She is not coughing. She has had no palpitations. No orthopnea. No paroxysmal nocturnal dyspnea. PAST MEDICAL HISTORY: Notable for: 1. Osteoarthritis. 2. Spinal stenosis. 3. Aortic valve dysfunction. 4. History of previous myocardial infarction. 5. Hypertension. 6. Hiatal hernia. 7. Back pain. 8. Knee pain. 9. Hip pain. 10. Shoulder pain. SURGICAL HISTORY: Notable for: 1. Left total hip. 2. Right total hip. 3. Gallbladder removal. 4. Right knee arthroscopy. 5. Bilateral carpal tunnel release. 6. 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 FAMILY HISTORY: Notable for father who is with heart disease. Mother age 86 with heart disease. Brother with mechanical valve. Socially, she has been advised to lose weight. She is a nonsmoker. Does not use alcohol. Lives independently at [facility] here in [place], had previously lived in [place]. She believes her health has worsened since moving from [place]. She has an adverse reaction to HEPARIN, which causes anaphylaxis, listed in the computer. MEDICINES AT HOME: Include the following: - Tylenol as needed for pain - chlorthalidone 12.5 mg by mouth daily - spironolactone 12.5 mg by mouth daily - aspirin 81 mg daily - atorvastatin 40 mg by mouth nightly - Nexium 40 mg by mouth daily - metoprolol succinate 50 mg by mouth daily - sublingual nitroglycerin 0.4 mg as needed for angina - tramadol 50 mg as needed for pain every 4 hours - Coumadin 4 mg by mouth every evening REVIEW OF SYSTEMS: Notable for her head feeling like a filled balloon. Sensation of subjective dullness in hearing on the right. No sore throat. She has had runny nose. No recent upper respiratory infection (URI). No cough. No sputum production. Chest discomfort as described. Abdominal pain. No change in bowel or bladder habits. No focal weakness. No paresthesias. Otherwise unremarkable. PHYSICAL EXAMINATION: Blood pressure is 125/64, pulse 88, respiratory rate 18, temperature 98.2, 96% on room air. Weight 72.5 kg with a body mass index of 26.6. This is a 75-year-old who appears her stated age. She is awake, appropriately interactive. She is wearing a wig. Sinuses are nontender. Pupils equally round and reactive, anicteric, not injected. Nasal septum is midline. She is wearing supplemental oxygen currently. Mucous membranes are tacky. Neck is supple. Breathing is symmetrically diminished, somewhat more on the left than the right. Heart is distant sounding, has a coarse systolic murmur at the right sternal border. Distal pulses 2+. Capillary refill is less than 2 seconds. Abdomen is soft, doughy, nontender. She has trace bilateral lower extremity edema. She is moving all four extremities. Strength is symmetrical. Cranial nerves II-XII are grossly intact. White cell count 8.7, hemoglobin 12.7, platelets of 126. INR 1.97. Sodium 135, potassium 3.4. CK 155, repeats to 118, troponin I 0.02, repeats to less than 0.02. BNP is 332. CT angiography of the chest shows no pulmonary emboli, dense consolidation of the left lower lobe and the left lingula consistent with infiltrate. Atelectatic changes of the right base, right middle lobe. Thickening of the adrenal glands. Chest x-ray shows prior sternotomy, elevated left hemidiaphragm. My assessment is as follows: This is a 75-year-old with hypoxia, possible community-acquired pneumonia, who will require a 2-midnight hospital stay for further diagnosis and workup. Plan will be as follows: 1. Infectious disease. Patient started on ceftriaxone and Zithromax. Patient not currently producing sputum. Unfortunately, no blood cultures have been obtained. Those will be ordered, although of less use now that she has received antibiotics. 2. Patient has hypoxia, which was noted prior to attempting to discharge her home this evening. She is requiring supplemental oxygen to keep pulse oximetry in a reasonable range. This could be chronic in nature or it could be related to an early pneumonia. There are certainly no findings on physical exam that would suggest she would benefit from nebulizers or steroids. She would benefit from a nocturnal oximetry (noc ox) tomorrow night. 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 3. The patient had an aortic valve replacement. Is on Coumadin. INR is subtherapeutic. She has a listed allergy to heparin. Will see if she can tolerate Lovenox. After further discussion, may start her on Lovenox and monitor her clinically. 4. Patient has chronic pain related to joint issues and spinal stenosis. Will continue her tramadol. 5. Patient has history of hypertension. I am currently going to hold her hydrochlorothiazide and spironolactone. 6. Deep venous thrombosis (DVT) prophylaxis will be full-dose Coumadin.
[2016-04-14] MEDS: SLF 3 ML SYR IV SCH ×3 (06:00→21:50)
[2016-04-14 06:45] LABS: INR 2.02
[2016-04-14 06:52] LABS: BASO % 0.3 % (0.0-1.0); EOS % 0.9 % (0.0-3.0); LARGE UNSTAINED CELL # 0.2 K/mm3 (0.0-0.4); LARGE UNSTAINED CELL % 3.2 % (0.0-4.0); LYMPH # 0.7 K/mm3 (1.5-4.5); LYMPH % 12.4 % (24.0-44.0); MEAN CORPUSCULAR HEMOGLOBIN 31.8 pg (27.0-33.0); MEAN CORPUSCULAR HGB CONC 33.6 g/dl (32.0-36.5); MEAN CORPUSCULAR VOLUME 94.7 fl (80.0-96.0); MONO # 0.3 K/mm3 (0.0-0.8); NEUTROPHILS # 4.2 K/mm3 (1.8-7.7); NEUTROPHILS % 77.1 % (36.0-66.0); PLATELET COUNT, AUTOMATED 112 k/mm3 (150-450); RED CELL DISTRIBUTION WIDTH 14.1 % (11.5-14.5); WHITE BLOOD COUNT 5.4 K/mm3 (4.0-10.0)
[2016-04-14 06:57] LABS: ANION GAP 8 MEQ/L (8-16); BLOOD UREA NITROGEN 17 MG/DL (7-18); CALCIUM LEVEL 9.1 MG/DL (8.8-10.2); CARBON DIOXIDE LEVEL 29 MEQ/L (21-32); CHLORIDE LEVEL 98 MEQ/L (98-107); CREATININE FOR GFR 0.58 MG/DL (0.55-1.02); GLOMERULAR FILTRATION RATE > 60.0 (>39); GLUCOSE, FASTING 181 MG/DL (83-110); POTASSIUM SERUM 3.5 MEQ/L (3.5-5.1); SODIUM LEVEL 135 MEQ/L (136-145)
[2016-04-14] MEDS: PANTOPRAZOLE 40MG TAB (PROTONIX) PO SCH (08:10)
[2016-04-14] MEDS: ASPIRIN 81 MG ENTERIC TAB PO SCH (08:10)
[2016-04-14] MEDS: METOPROLOL SUCC (TopROL XL) 50MG **XL** TAB PO SCH (08:12)
[2016-04-14] MEDS: traMADol 50 MG TAB PO PRN ×2 (08:15→18:36)
[2016-04-14] MEDS ORDERED: WARFARIN SOD 1 MG TAB PO ONE (17:00)
[2016-04-15] MEDS: AZITHROMYCIN INJ 500 MG, VIAL MATE ADAPTER 1 EACH in D5W 250 ML IV SCH (03:47)
[2016-04-15] MEDS: cefTRIAXone SOD 2 GM in D5W MINI-BAG PLUS 50 ML IV SCH (03:47)
[2016-04-15] MEDS: SLF 3 ML SYR IV SCH ×3 (03:47→20:04)
[2016-04-15 04:05] VITALS: BP 110/55
[2016-04-15] MEDS: traMADol 50 MG TAB PO PRN ×4 (04:41→22:38)
[2016-04-15 05:29] LABS: MEAN CORPUSCULAR HEMOGLOBIN 31.2 pg (27.0-33.0); MEAN CORPUSCULAR HGB CONC 33.3 g/dl (32.0-36.5); MEAN CORPUSCULAR VOLUME 93.8 fl (80.0-96.0); RED CELL DISTRIBUTION WIDTH 14.1 % (11.5-14.5); WHITE BLOOD COUNT 5.2 K/mm3 (4.0-10.0)
[2016-04-15 05:33] LABS: INR 2.32
[2016-04-15 05:38] LABS: ANION GAP 8 MEQ/L (8-16); BLOOD UREA NITROGEN 17 MG/DL (7-18); CALCIUM LEVEL 8.6 MG/DL (8.8-10.2); CARBON DIOXIDE LEVEL 30 MEQ/L (21-32); CHLORIDE LEVEL 97 MEQ/L (98-107); CREATININE FOR GFR 0.55 MG/DL (0.55-1.02); GLOMERULAR FILTRATION RATE > 60.0 (>39); GLUCOSE, FASTING 158 MG/DL (83-110); MAGNESIUM LEVEL 1.7 MG/DL (1.8-2.4); POTASSIUM SERUM 3.2 MEQ/L (3.5-5.1); SODIUM LEVEL 135 MEQ/L (136-145)
[2016-04-15] MEDS ORDERED: SODIUM CHLORIDE NASAL 0.65% SPRAY BTL (OCEAN) PRN (07:30)
[2016-04-15 08:00] VITALS: BP 121/58
[2016-04-15] MEDS ORDERED: POTASSIUM CHLORIDE 10 MEQ SR TABLET PO ONE (08:00)
[2016-04-15] MEDS ORDERED: MAGNESIUM OXIDE 400 MG TAB (MAG-OX) PO ONE (08:00)
[2016-04-15] MEDS: PANTOPRAZOLE 40MG TAB (PROTONIX) PO SCH (09:23)
[2016-04-15] MEDS: METOPROLOL SUCC (TopROL XL) 50MG **XL** TAB PO SCH (09:23)
[2016-04-15] MEDS: ASPIRIN 81 MG ENTERIC TAB PO SCH (09:23)
[2016-04-15 12:26] VITALS: BP 130/69
--- NOTE | 2016-04-15 12:38 | IPN ---
DATE OF SERVICE: 04/15/2016 A 75-year-old female seen at bedside. No overnight issues. Feels that her breathing is moderately better. She denies chest pain, nausea or vomiting. OBJECTIVE: Temperature is 99.1, pulse 81, respiratory rate 18, blood pressure 121/58, SpO2 91% on 1 liter. GENERAL: The patient appears to be in no acute distress. She is alert. HEENT: Unremarkable. LUNGS: Diminished bibasilar breath sounds. Occasional wheeze. HEART: Regular rate and rhythm. ABDOMEN: Soft. EXTREMITIES: No edema. No calf tenderness. LABORATORY DATA: White count 5.2, hemoglobin 10.9, platelets 123,000. Sodium 135, potassium 3.2, chloride 97, bicarbonate 30, anion gap 8, BUN 17, creatinine 0.55, magnesium 1.7. Troponin is negative times three. ASSESSMENT AND PLAN: 1. Acute hypoxia which is resolved with community-acquired pneumonia. Will continue with Rocephin and Zithromax. Blood culture showed no growth after 24 hours times two. Influenza A and B are negative. She does appear to be improving clinically. Will downgrade her to the general medical floor and anticipate home discharge tomorrow. 2. History of aortic valve replacement. Spoke to Dr. Cheng. Her INR should be maintained between 2 and 3. She is therapeutic today. No further changes. 3. Chronic pain secondary to spinal stenosis and joint issues. We will continue the tramadol. 4. Hypertension. Stable on current medications. She did have her angiotensin-converting enzyme (MELE) inhibitor and diuretic has been held. We will plan on resuming this tomorrow. 5. Deep venous thrombosis (DVT) prophylaxis. On appropriate dosing of Coumadin. DISPOSITION: Will most likely anticipate home discharge tomorrow. I would like for nursing to try to walk her in the hallway to make sure she does not desaturate.
[2016-04-15] MEDS ORDERED: ZITH500T PO (17:13)
[2016-04-15] MEDS: WARFARIN SOD 4 MG TAB PO SCH (18:36)
--- NOTE | 2016-04-15 19:53 | IPN ---
DATE: 04/15/2016 ADDENDUM: Nocturnal pulse oximetry does indicate variation in the SpO2 wave form suggestive of sleep disorder. The patient should be referred to outpatient for further testing with a sleep study. This will be deferred to her outpatient followup.
[2016-04-15] MEDS: ATORVASTATIN 20 MG TAB PO SCH (20:04)
[2016-04-15 22:00] VITALS: BP 134/64
[2016-04-16] MEDS: ACETAMINOPHEN TAB 650MG DOSE (2X325MG) PO PRN ×3 (00:18→12:43)
[2016-04-16] MEDS: AZITHROMYCIN INJ 500 MG, VIAL MATE ADAPTER 1 EACH in D5W 250 ML IV SCH (02:34)
--- NOTE | 2016-04-16 02:41 | EDDOCDS ---
Physician Documentation [facility] Name: Laureen Bruce Age: 75 yrs Sex: Female : 1940 Arrival Date: 04/13/2016 Time: 14:17 Bed OBSERVATION Private : Tanika Disposition: 04/14/16 00:49 Hospitalization ordered by Matty Parada for Inpatient Admission. Preliminary diagnosis are Other pneumonia, unspecified organism, Hypoxemia. - Bed requested for PCU. - Status is Inpatient Admission. jf3 - Condition is Stable. - Problem is an acute exacerbation. - Symptoms have improved. Historical: - Allergies: Heparin (Anaphylaxis); - Home Meds: 1. atorvastatin 40 mg oral tab 1 tab nightly 2. Chlorthalidone 12.5 mg Oral 1 tab every -- 3. Coumadin 4 mg Oral tab 1 tab once daily 4. Meclizine Oral 1 tab 3 times per day as needed 5. metoprolol succinate 50 mg tab 1 tab once daily 6. Nexium 40 mg Oral cpDR 1 cap once daily 7. nitroglycerin 0.4 mg SL subl 1 tab every 5 minutes x 3 as needed 8. spironolactone 12.5mg Oral tab 1 tab once daily 9. tramadol 50 mg Oral tab 1 tab every 4-6 hours as needed - PMHx: Diabetes - NIDDM: uncontrolled; DVT; GERD; Hypercholesterolemia; Hypertension; TN; - PSHx: Bilateral Hip Replacement; Cholecystectomy; CABG; Aortic Valve Replacement, Mechanical; - Social history: Smoking status: Patient states was never smoker of tobacco. No barriers to communication noted, The patient speaks fluent Polish, Speaks appropriately for age. - Family history: Not pertinent. - : The pt / caregiver states he / she is on anticoagulants: coumadin. Home medication list is obtained from the patient. - Exposure Risk Screening:: None identified. Vital Signs: 04/13 14:19 BP 104 / 62; Pulse 102; Resp 18 S; Temp 98.2(O); Pulse Ox 96% on R/A; Weight 72.57 kg / gr2 159.99 lbs (R); Height 5 ft. 5 in. (165.10 cm) (R); Pain 8/10; 14:33 Pulse 92 MON; Pulse Ox 99% ; jf3 14:34 BP 110 / 63 (auto/); jf3 15:02 Pulse 82 MON; Pulse Ox 93% ; jf3 15:04 BP 113 / 60 (auto/); jf3 15:17 Pulse 84 MON; Pulse Ox 93% ; jf3 15:19 BP 111 / 60 (auto/); jf3 15:21 Pulse 84 MON; Pulse Ox 92% ; jf3 15:22 BP 108 / 60 (auto/); jf3 15:48 Pulse 84 MON; Pulse Ox 91% ; jf3 15:49 BP 120 / 61 (auto/); jf3 16:34 BP 105 / 53 (auto/); jf3 16:37 Pulse 86 MON; Pulse Ox 94% ; jf3 16:48 Pulse 84 MON; Pulse Ox 94% ; jf3 16:49 BP 112 / 55 (auto/); jf3 17:04 BP 112 / 57 (auto/); jf3 17:04 Pulse 82 MON; Pulse Ox 93% ; jf3 17:14 Pulse 82 MON; Pulse Ox 94% ; jf3 17:19 BP 111 / 58 (auto/); jf3 17:33 Pulse 84 MON; Pulse Ox 95% ; jf3 17:34 BP 115 / 57 (auto/); jf3 17:48 Pulse 82 MON; Pulse Ox 93% ; jf3 17:49 BP 118 / 67 (auto/); jf3 18:04 BP 115 / 59 (auto/); jf3 18:05 Pulse 82 MON; Pulse Ox 93% ; jf3 18:19 BP 115 / 60 (auto/); jf3 18:19 Pulse 84 MON; Pulse Ox 92% ; jf3 18:24 Pulse 82 MON; Pulse Ox 96% ; jf3 18:25 BP 119 / 58 (auto/); jf3 18:32 Pulse 86 MON; Pulse Ox 92% ; jf3 18:34 BP 122 / 56 (auto/); jf3 18:48 Pulse 84 MON; Pulse Ox 92% ; jf3 18:49 BP 124 / 64 (auto/); jf3 19:03 Pulse 86 MON; Pulse Ox 91% ; jf3 19:04 BP 121 / 65 (auto/); jf3 19:19 BP 125 / 63 (auto/); jf3 19:19 Pulse 84 MON; Pulse Ox 93% ; jf3 19:28 Pulse 78 MON; Pulse Ox 92% ; jf3 19:34 BP 125 / 67 (auto/); jf3 19:49 BP 131 / 66 (auto/); jf3 19:50 Pulse 86 MON; Pulse Ox 92% ; jf3 20:04 BP 129 / 61 (auto/); jf3 20:04 Pulse 88 MON; Pulse Ox 92% ; jf3 20:19 BP 125 / 64 (auto/); jf3 20:21 Pulse 88 MON; Pulse Ox 93% ; jf3 21:17 BP 157 / 103 (auto/); jf3 21:19 Pulse 96 MON; Pulse Ox 96% ; jf3 21:31 Pulse 82 MON; Pulse Ox 98% ; jf3 21:32 BP 143 / 88 (auto/); jf3 21:46 Pulse 82 MON; Pulse Ox 98% ; jf3 21:47 BP 135 / 85 (auto/); jf3 22:01 Pulse 88 MON; Pulse Ox 98% ; jf3 22:02 BP 129 / 103 (auto/); jf3 22:17 BP 144 / 93 (auto/); jf3 22:17 Pulse 86 MON; Pulse Ox 98% ; jf3 22:31 Pulse 98 MON; Pulse Ox 97% ; jf3 22:32 BP 155 / 103 (auto/); jf3 22:32 Pulse 82 MON; Pulse Ox 96% ; jf3 22:34 BP 124 / 63 (auto/); jf3 22:35 Pulse 102 MON; Pulse Ox 97% ; jf3 22:36 BP 152 / 88 (auto/); jf3 22:46 Pulse 94 MON; Pulse Ox 97% ; jf3 22:47 BP 141 / 86 (auto/); jf3 22:47 Pulse 88 MON; Pulse Ox 94% ; jf3 22:49 BP 130 / 65 (auto/); jf3 23:03 Pulse 88 MON; Pulse Ox 93% ; jf3 23:04 BP 129 / 67 (auto/); jf3 23:16 BP 145 / 90; Pulse 90; Resp 18; Temp 98(TE); Pulse Ox 98% on R/A; jf3 23:19 BP 124 / 64 (auto/); jf3 23:19 Pulse 90 MON; Pulse Ox 94% ; jf3 23:34 BP 131 / 67 (auto/); jf3 23:35 Pulse 88 MON; Pulse Ox 94% ; jf3 04/14 00:04 BP 125 / 65 (auto/); jf3 00:04 Pulse 86 MON; Pulse Ox 95% ; jf3 00:19 BP 129 / 67 (auto/); jf3 00:19 Pulse 90 MON; Pulse Ox 96% ; jf3 00:33 Pulse 90 MON; Pulse Ox 94% ; jf3 00:34 BP 127 / 64 (auto/); jf3 00:49 BP 125 / 62 (auto/); jf3 00:49 Pulse 86 MON; Pulse Ox 94% ; jf3 00:59 Pulse 96 MON; Pulse Ox 95% ; jf3 01:04 BP 136 / 67 (auto/); jf3 01:18 Pulse 82 MON; Pulse Ox 95% ; jf3 01:19 BP 129 / 61 (auto/); jf3 01:25 BP 130 / 70; Pulse 86; Resp 18; Temp 99.1(O); Pulse Ox 95% 2 lpm ; Pain 8/10; jf3 04/13 14:19 Body Mass Index 26.63 (72.57 kg, 165.10 cm) gr2 MDM: 04/13 14:27 Cloth Sponger/Pulse Ox/q 30 min VS ordered. sd1 14:27 IV Saline Lock ordered. sd1 14:27 Rhythm Strip to chart ordered. sd1 14:27 Undress patient appropriately for examination ordered. sd1 14:27 B-Type Natiuretic Peptide Ordered. EDMS 14:27 Basic Metabolic Profile Ordered. EDMS 14:27 CBC with Diff Ordered. EDMS 14:27 Cardiac Injury Profile Ordered. EDMS 14:27 Troponin Ordered. EDMS 14:29 portable chest Ordered. EDMS 14:29 ECG WITH READING ER PHYS+CARDIAG ordered. EDMS 14:49 [facility] [employer] Sales Order ordered. sd1 14:49 Aspirin Chewable Tablet 324 mg PO once ordered. sd1 14:50 morphine 2 mg IVP every 15 minutes; Document pain score/vitals after each dose (Hold if sd1 SBP < 90mmHg) x3 ordered. 14:51 PT/INR Ordered. EDMS 15:08 Misc Outside Parts Sales Order complete. deg 15:15 [facility] Payment Agreement was scanned into [employer] and attached to record. jp5 15:15 Financial registration complete. jp5 15:26 B-Type Natiuretic Peptide Reviewed. sd1 15:26 CBC with Diff Reviewed. sd1 15:26 PT/INR Reviewed. sd1 15:29 portable chest Reviewed. sd1 15:35 Basic Metabolic Profile Reviewed. sd1 15:35 Cardiac Injury Profile Reviewed. sd1 15:35 Troponin Reviewed. sd1 15:48 D-DIMER QUANT Ordered. EDMS 15:58 Repeat EKG (put time details section) ordered. sd1 16:02 Repeat EKG (put time details section) complete. deg 16:02 ECG WITH READING ER PHYS ordered. EDMS 16:08 PT/INR Reviewed. sd1 16:08 D-DIMER QUANT Reviewed. sd1 16:10 CT Chest Angio R/O PE Ordered. EDMS 16:50 Redraw CIP &Troponin (put time in details section) ordered. sd1 16:50 Repeat EKG (put time details section) ordered. sd1 17:05 Redraw CIP &Troponin (put time in details section) complete. deg 17:05 Repeat EKG (put time details section) complete. deg 17:07 ECG WITH READING ER PHYS ordered. EDMS 17:07 CARDIAC MARKER PANEL Ordered. EDMS 17:33 cefTRIAXone 1 grams IVPB once over 30 mins; dilute in 50mL of NS or D5W ordered. sd1 17:34 Doxycycline 100 mg PO once ordered. sd1 17:35 traMADol 50 mg PO once ordered. sd1 21:36 CARDIAC MARKER PANEL Reviewed. mm11 21:36 CT Chest Angio R/O PE Reviewed. mm11 22:07 Albuterol-Ipratropium 3 ml Inhalation once ordered. mm11 22:07 Call Respiratory ordered. mm11 22:13 Call Respiratory complete. tmm1 23:26 BED REQUEST+ADM ordered. EDMS 04/14 00:33 INFLUENZA A&B RAPID ANTIGEN Ordered. EDMS 00:33 SPUTUM CULTURE AND GRAM STAIN Ordered. EDMS 00:34 Admission / Observation Status ordered. EDMS 00:34 NO ADDED SALT DIET ordered. EDMS 00:54 BLOOD CULTURES Ordered. EDMS 00:54 BLOOD CULTURES Ordered. EDMS 00:56 PROTHROMBIN TIME PROFILE\E\INR Ordered. EDMS 00:56 CARDIAC MARKER PANEL Ordered. EDMS 00:56 BASIC METABOLIC PROFILE Ordered. EDMS 00:56 CBC WITH DIFFERENTIAL Ordered. EDMS 12:11 T-Sheet-- Draft Copy was scanned into [employer] and attached to record. gb 12:11 ECG/EKG was scanned into [employer] and attached to record. gb 12:11 Trend VS was scanned into [employer] and attached to record. gb Administered Medications: 04/13 15:16 CANCELLED (Patient Refused): Ondansetron 4 mg IVP once jf3 15:25 Drug: Aspirin 243 mg [aspirin 81 mg chewable tablet (3 tabs)] {Note: pt took 1 81mg ASA jf3 earlier today. Dr Karin mccarthy.} Route: PO; 04/14 01:41 Follow up: Response: No Adverse Reaction jf3 04/13 15:35 Not Given (Patient Refused): morphine 2 mg IVP every 15 minutes; Document pain jf3 score/vitals after each dose (Hold if SBP < 90mmHg) x3 18:30 Drug: cefTRIAXone 1 grams [ceftriaxone 1 gram solution for injection] Route: IVPB; jf3 Infused Over: 30 mins; Site: left antecubital; 20:24 Follow up: Response: No Adverse Reaction; IV Intake: 50ml jf3 18:30 Drug: Doxycycline 100 mg [doxycycline hyclate 100 mg tablet (1 tabs)] Route: PO; jf3 20:24 Follow up: Response: No Adverse Reaction jf3 18:30 Drug: traMADol 50 mg [tramadol 50 mg tablet (1 tabs)] Route: PO; jf3 20:24 Follow up: Response: Pain is decreased jf3 22:27 Drug: Albuterol-Ipratropium 3 ml [ipratropium-albuterol 0.5 mg-3 mg(2.5 mg base)/3 mL jc3 nebulization soln (3 mL)] Route: Inhalation; Signatures: [facility] EDTX Anita Hensley MD MD sd1 Anneliese Mccurdy, Miter Saw Operator Unit deg Reva LENZ, DEN Cobian RN, Gloria, Reg Reg Matthew Cabrera RN RN mlb1 Onel Beard DO DO mm11 McLdoris, Lora, HADOOP ADMINISTRATOR HADOOP ADMINISTRATOR tmm1 Laurie Velasquez jp5 Wilfredo Bettencourt,DEN RN jf3 Leonardo Engel jc3 The chart was reviewed and I authenticate all verbal orders and agree with the evaluation and treatment provided.Corrections: (The following items were deleted from the chart) 15:16 14:50 Ondansetron 4 mg IVP once ordered. sd1 jf3 15:48 15:42 D-DIMER QUANT+LAB ordered. EDMS EDMS Attachments: 15:15 [facility] Payment Agreement jp5 04/14 12:11 T-Sheet-- Draft Copy gb 12:11 ECG/EKG gb Chart Complete MTDD
--- NOTE | 2016-04-16 02:41 | EDDOCDS ---
Nurse's Notes [facility] Name: Laureen Bruce Age: 75 yrs Sex: Female : 1940 Arrival Date: 04/13/2016 Time: 14:17 Bed OBSERVATION Private MD: Tanika Diagnosis: Other pneumonia, unspecified organism;Hypoxemia Presentation: 04/13 14:25 Presenting complaint: Patient states: Sub-sternal chest pain does not radiate began at mlb1 noon today. Aspirin was not taken prior to arrival. Adult Sepsis Screening: The patient does not have new or worsening altered mentation. Patient's respiratory rate is less than 22. Systolic blood pressure is greater than 100. Patient has a qSOFA score of 0- Negative Sepsis Screen. Suicide/Homicide risk assessment- the patient denies having any suicidal and/or homicidal ideations and does not present with any other emotional, behavioral or mental health complaints. Status: Patient is not a senior field service engineer or dependent. Transition of care: patient was not received from another setting of care. 14:25 Acuity: FRANKY Level 2 mlb1 14:25 Method Of Arrival: Walkin/Carried/Asstd mlb1 Triage Assessment: 14:28 General: Appears in no apparent distress, Behavior is anxious, cooperative. Pain: mlb1 Location: mid-sternal area Pain currently is 5 out of 10 on a pain scale. Quality of pain is described as dull. The patient is triaged at the bedside. See Assessment in Nurses Notes section of ED record. Respiratory: Airway is patent Respiratory effort is even, unlabored, Reports pain with movement pain with respiration. 04/14 01:40 Cardiovascular: Chest pain is described as mild, radiates Does not radiate. episodes jf3 began . Historical: - Allergies: Heparin (Anaphylaxis); - Home Meds: 1. atorvastatin 40 mg oral tab 1 tab nightly 2. Chlorthalidone 12.5 mg Oral 1 tab every -- 3. Coumadin 4 mg Oral tab 1 tab once daily 4. Meclizine Oral 1 tab 3 times per day as needed 5. metoprolol succinate 50 mg tab 1 tab once daily 6. Nexium 40 mg Oral cpDR 1 cap once daily 7. nitroglycerin 0.4 mg SL subl 1 tab every 5 minutes x 3 as needed 8. spironolactone 12.5mg Oral tab 1 tab once daily 9. tramadol 50 mg Oral tab 1 tab every 4-6 hours as needed - PMHx: Diabetes - NIDDM: uncontrolled; DVT; GERD; Hypercholesterolemia; Hypertension; WI; - PSHx: Bilateral Hip Replacement; Cholecystectomy; CABG; Aortic Valve Replacement, Mechanical; - Social history: Smoking status: Patient states was never smoker of tobacco. No barriers to communication noted, The patient speaks fluent Salvadorean, Speaks appropriately for age. - Family history: Not pertinent. - : The pt / caregiver states he / she is on anticoagulants: coumadin. Home medication list is obtained from the patient. - Exposure Risk Screening:: None identified. Screenin/19 14:56 Screening information is obtained from the patient. Fall risk: No risks identified. jf3 Assistance ADL's: requires no assistance with activities of daily living. Abuse/DV Screen: The patient / caregiver reports he/she is: not in a situation that causes fear, pain or injury. Nutritional screening: No deficits noted. Advance Directives: Currently, there is a health care proxy, Brennan Roy, son. There is no active DNR order. home support is adequate. Assessment: 14:56 Adult Sepsis Screening: The patient does not have new or worsening altered mentation. jf3 Patient's respiratory rate is less than 22. Systolic blood pressure is greater than 100. Patient has a qSOFA score of 0- Negative Sepsis Screen. General: Appears in no apparent distress, comfortable, Behavior is cooperative. Pain: Location: mid-sternal area Pain currently is 5 out of 10 on a pain scale. Neurological: Level of Consciousness is awake, alert, Oriented to person, place, time. Cardiovascular: Capillary refill < 3 seconds Heart tones S1 S2 present Rhythm is sinus rhythm No ectopy. Chest pain is described as mild. Respiratory: Airway is patent Respiratory effort is even, unlabored, Respiratory pattern is regular, symmetrical, Breath sounds are clear bilaterally. Respiratory: Reports cough that is pain with respiration Denies shortness of breath. GI: Abdomen is obese, Bowel sounds present X 4 quads. Abd is soft and non tender X 4 quads. Reports nausea. Derm: Skin is normal. 16:00 General: Appears in no apparent distress, comfortable, Behavior is cooperative, Pt jf3 resting supine on stretcher. respirations easy and unlabored. Pt c/o pain but does not want pain medication. Call light in reach. Will continue to monitor. 17:13 General: Appears in no apparent distress, comfortable, Behavior is cooperative, Pt jf3 resting supine on stretcher. Respirations easy and unlabored. Call light in reach. Will continue to monitor. 18:15 General: Appears in no apparent distress, comfortable, Behavior is cooperative, Pt jf3 resting supine on stretcher. Respirations easy and unlabored. Call light in reach. Will continue to monitor. 19:15 General: Appears in no apparent distress, comfortable, Behavior is cooperative. jf3 Neurological: Level of Consciousness is awake, alert. Respiratory: Airway is patent Respiratory effort is even, unlabored, Respiratory pattern is regular, symmetrical. 20:24 General: Appears in no apparent distress, comfortable, Behavior is cooperative, Pt jf3 restring supine on stretcher. respirations easy and unlabored. Pt states pain has decreased but she is still having some pain, states she does not want anything stronger for pain other than her tramadol. 21:30 General: Appears in no apparent distress, comfortable, Behavior is cooperative, resting jf3 supine on stretcher. respirations easy and unlabored. Will continue to monitor. 22:30 General: Appears in no apparent distress, Behavior is cooperative. Neurological: Level jf3 of Consciousness is awake, alert, Oriented to person, place, time. Cardiovascular: Capillary refill < 3 seconds. Respiratory: Airway is patent Respiratory effort is even, unlabored, Respiratory pattern is regular, symmetrical. 04/14 00:30 General: Appears in no apparent distress, comfortable, Behavior is cooperative. jf3 Neurological: Level of Consciousness is awake, alert, Oriented to person, place, time. Cardiovascular: Capillary refill < 3 seconds. Respiratory: Airway is patent Respiratory effort is even, unlabored, Respiratory pattern is regular, symmetrical. 01:30 General: Appears in no apparent distress, comfortable, Behavior is cooperative. Pain: jf3 Pain currently is 8 out of 10 on a pain scale. Neurological: Level of Consciousness is awake, alert, Oriented to person, place, time. Cardiovascular: Capillary refill < 3 seconds Heart tones S1 S2 present. Respiratory: Airway is patent Respiratory effort is even, unlabored, Respiratory pattern is regular, symmetrical. Derm: Skin is pink, warm & dry. Vital Signs: 04/13 14:19 BP 104 / 62; Pulse 102; Resp 18 S; Temp 98.2(O); Pulse Ox 96% on R/A; Weight 72.57 kg gr2 (R); Height 5 ft. 5 in. (165.10 cm) (R); Pain 8/10; 14:33 Pulse 92 MON; Pulse Ox 99% ; jf3 14:34 BP 110 / 63 (auto/); jf3 15:02 Pulse 82 MON; Pulse Ox 93% ; jf3 15:04 BP 113 / 60 (auto/); jf3 15:17 Pulse 84 MON; Pulse Ox 93% ; jf3 15:19 BP 111 / 60 (auto/); jf3 15:21 Pulse 84 MON; Pulse Ox 92% ; jf3 15:22 BP 108 / 60 (auto/); jf3 15:48 Pulse 84 MON; Pulse Ox 91% ; jf3 15:49 BP 120 / 61 (auto/); jf3 16:34 BP 105 / 53 (auto/); jf3 16:37 Pulse 86 MON; Pulse Ox 94% ; jf3 16:48 Pulse 84 MON; Pulse Ox 94% ; jf3 16:49 BP 112 / 55 (auto/); jf3 17:04 BP 112 / 57 (auto/); jf3 17:04 Pulse 82 MON; Pulse Ox 93% ; jf3 17:14 Pulse 82 MON; Pulse Ox 94% ; jf3 17:19 BP 111 / 58 (auto/); jf3 17:33 Pulse 84 MON; Pulse Ox 95% ; jf3 17:34 BP 115 / 57 (auto/); jf3 17:48 Pulse 82 MON; Pulse Ox 93% ; jf3 17:49 BP 118 / 67 (auto/); jf3 18:04 BP 115 / 59 (auto/); jf3 18:05 Pulse 82 MON; Pulse Ox 93% ; jf3 18:19 BP 115 / 60 (auto/); jf3 18:19 Pulse 84 MON; Pulse Ox 92% ; jf3 18:24 Pulse 82 MON; Pulse Ox 96% ; jf3 18:25 BP 119 / 58 (auto/); jf3 18:32 Pulse 86 MON; Pulse Ox 92% ; jf3 18:34 BP 122 / 56 (auto/); jf3 18:48 Pulse 84 MON; Pulse Ox 92% ; jf3 18:49 BP 124 / 64 (auto/); jf3 19:03 Pulse 86 MON; Pulse Ox 91% ; jf3 19:04 BP 121 / 65 (auto/); jf3 19:19 BP 125 / 63 (auto/); jf3 19:19 Pulse 84 MON; Pulse Ox 93% ; jf3 19:28 Pulse 78 MON; Pulse Ox 92% ; jf3 19:34 BP 125 / 67 (auto/); jf3 19:49 BP 131 / 66 (auto/); jf3 19:50 Pulse 86 MON; Pulse Ox 92% ; jf3 20:04 BP 129 / 61 (auto/); jf3 20:04 Pulse 88 MON; Pulse Ox 92% ; jf3 20:19 BP 125 / 64 (auto/); jf3 20:21 Pulse 88 MON; Pulse Ox 93% ; jf3 21:17 BP 157 / 103 (auto/); jf3 21:19 Pulse 96 MON; Pulse Ox 96% ; jf3 21:31 Pulse 82 MON; Pulse Ox 98% ; jf3 21:32 BP 143 / 88 (auto/); jf3 21:46 Pulse 82 MON; Pulse Ox 98% ; jf3 21:47 BP 135 / 85 (auto/); jf3 22:01 Pulse 88 MON; Pulse Ox 98% ; jf3 22:02 BP 129 / 103 (auto/); jf3 22:17 BP 144 / 93 (auto/); jf3 22:17 Pulse 86 MON; Pulse Ox 98% ; jf3 22:31 Pulse 98 MON; Pulse Ox 97% ; jf3 22:32 BP 155 / 103 (auto/); jf3 22:32 Pulse 82 MON; Pulse Ox 96% ; jf3 22:34 BP 124 / 63 (auto/); jf3 22:35 Pulse 102 MON; Pulse Ox 97% ; jf3 22:36 BP 152 / 88 (auto/); jf3 22:46 Pulse 94 MON; Pulse Ox 97% ; jf3 22:47 BP 141 / 86 (auto/); jf3 22:47 Pulse 88 MON; Pulse Ox 94% ; jf3 22:49 BP 130 / 65 (auto/); jf3 23:03 Pulse 88 MON; Pulse Ox 93% ; jf3 23:04 BP 129 / 67 (auto/); jf3 23:16 BP 145 / 90; Pulse 90; Resp 18; Temp 98(TE); Pulse Ox 98% on R/A; jf3 23:19 BP 124 / 64 (auto/); jf3 23:19 Pulse 90 MON; Pulse Ox 94% ; jf3 23:34 BP 131 / 67 (auto/); jf3 23:35 Pulse 88 MON; Pulse Ox 94% ; jf3 04/14 00:04 BP 125 / 65 (auto/); jf3 00:04 Pulse 86 MON; Pulse Ox 95% ; jf3 00:19 BP 129 / 67 (auto/); jf3 00:19 Pulse 90 MON; Pulse Ox 96% ; jf3 00:33 Pulse 90 MON; Pulse Ox 94% ; jf3 00:34 BP 127 / 64 (auto/); jf3 00:49 BP 125 / 62 (auto/); jf3 00:49 Pulse 86 MON; Pulse Ox 94% ; jf3 00:59 Pulse 96 MON; Pulse Ox 95% ; jf3 01:04 BP 136 / 67 (auto/); jf3 01:18 Pulse 82 MON; Pulse Ox 95% ; jf3 01:19 BP 129 / 61 (auto/); jf3 01:25 BP 130 / 70; Pulse 86; Resp 18; Temp 99.1(O); Pulse Ox 95% 2 lpm ; Pain 8/10; jf3 04/13 14:19 Body Mass Index 26.63 (72.57 kg, 165.10 cm) gr2 Vitals: 04/13 14:19 Log In Time: April 13, 2016 at 14:19. RN notified that patient meets Red Flag gr2 criteria. ED Course: 14:19 Patient visited by Nabor Son. gr2 14:19 Tanika is Private Physician. gr2 14:19 Patient moved to Waiting gr2 14:20 Patient visited by Nabor Son. gr2 14:20 Patient moved to Pre RCE gr2 14:21 Patient moved to 7 gr2 14:25 Patient visited by Matthew Liz, RN. mlb1 14:26 Triage Initiated mlb1 14:29 Patient visited by Matthew Liz, DEN. mlb1 14:38 Anita Hensley MD is Attending Physician. sd1 14:41 Patient visited by Anita Hensley MD. sd1 14:49 EKG done. (by ED staff). Reviewed by Anita Hensley MD. rn1 14:55 PT/INR Sent. jf3 14:56 The patient / caregiver is instructed regarding the plan of care and ED course. Cardiac jf3 monitor on. Pulse ox on. NIBP on. 14:56 B-Type Natiuretic Peptide Sent. jf3 14:56 Basic Metabolic Profile Sent. jf3 14:56 CBC with Diff Sent. jf3 14:56 Cardiac Injury Profile Sent. jf3 14:56 Troponin Sent. jf3 14:56 Inserted saline lock: 20 gauge in left antecubital area The patient tolerated the jf3 procedure well. No procedures done that require assistance. 15:00 Patient visited by Wilfredo Bettencourt RN. jf3 15:15 [facility] Payment Agreement was scanned into [employer] and attached to record. jp5 15:26 portable chest Returned. EDMS 15:27 Patient visited by Zonia Silva PCA. jlf 16:17 Patient visited by Zonia Silva PCA. jlf 16:17 Patient visited by Zonia Silva PCA. jlf 16:17 EKG done. (by ED staff). Reviewed by Anita Hensley MD. jlf 16:53 Patient visited by Zonia Silva PCA. jlf 17:14 Patient visited by Wilfredo Bettencourt RN. jf3 17:35 Patient visited by Zonia Silva PCA. jlf 17:36 Patient moved to OBSERVATION sd1 18:10 CT Chest Angio R/O PE Returned. EDMS 18:40 Patient visited by Wilfredo Bettencourt RN. jf3 19:22 Attending Physician role handed off by Anita Hensley MD mm11 19:22 Onel Beard DO is Attending Physician. mm11 20:24 CARDIAC MARKER PANEL Sent. jf3 20:26 Patient visited by Wilfredo Bettencourt RN. jf3 20:33 EKG done. (by ED staff). Reviewed by Onel Beard DO. jmv 20:34 Patient visited by Clifford Traylor PCA. jmv 21:58 EKG-ADULT Returned. EDMS 21:58 ECG WITH READING ER PHYS Returned. EDMS 21:59 ECG WITH READING ER PHYS Returned. EDMS 22:39 Cammie Maya,RN is Primary Nurse. cf2 22:39 Patient visited by Cammie Maya RN. cf2 23:05 portable chest Returned. EDMS 23:06 CT Chest Angio R/O PE Returned. EDMS 04/14 00:48 Matty Parada MD is Hospitalizing Provider. mm11 12:11 T-Sheet-- Draft Copy was scanned into [employer] and attached to record. gb 12:11 ECG/EKG was scanned into [employer] and attached to record. gb 12:11 Trend VS was scanned into [employer] and attached to record. gb Administered Medications: 04/13 15:16 CANCELLED (Patient Refused): Ondansetron 4 mg IVP once jf3 15:25 Drug: Aspirin 243 mg [aspirin 81 mg chewable tablet (3 tabs)] {Note: pt took 1 81mg ASA jf3 earlier today. Dr Frazier aware.} Route: PO; 04/14 01:41 Follow up: Response: No Adverse Reaction jf3 04/13 15:35 Not Given (Patient Refused): morphine 2 mg IVP every 15 minutes; Document pain jf3 score/vitals after each dose (Hold if SBP < 90mmHg) x3 18:30 Drug: cefTRIAXone 1 grams [ceftriaxone 1 gram solution for injection] Route: IVPB; jf3 Infused Over: 30 mins; Site: left antecubital; 20:24 Follow up: Response: No Adverse Reaction; IV Intake: 50ml jf3 18:30 Drug: Doxycycline 100 mg [doxycycline hyclate 100 mg tablet (1 tabs)] Route: PO; jf3 20:24 Follow up: Response: No Adverse Reaction jf3 18:30 Drug: traMADol 50 mg [tramadol 50 mg tablet (1 tabs)] Route: PO; jf3 20:24 Follow up: Response: Pain is decreased jf3 22:27 Drug: Albuterol-Ipratropium 3 ml [ipratropium-albuterol 0.5 mg-3 mg(2.5 mg base)/3 mL jc3 nebulization soln (3 mL)] Route: Inhalation; Attachments: 12:11 Trend VS gb Intake: 04/13 20:24 IV: 50.00ml; Total: 50.00ml. jf3 RT: 22:27 Initial Med Neb Given as ordered. O2 via nasal cannula \T\ 2L/min. Respiratory: Breath jc3 sounds are coarse bilaterally. Breath sounds are diminished. 22:27 O2 via Patient was on room air with a SpO2 of 88-90. Put patient on 2L NC, SpO2 - 94%. jc3 22:33 O2 via leaving patient on room air to see if SpO2 will improve post nebulizer treatment.jc3 04/14 00:15 O2 via placed patient on 2L NC. SpO2 82-88 on room air. jc3 Order Results: Lab Order: B-Type Natiuretic Peptide; SPEC'M 04/13/16 14:54 Test: BRAIN NATRIURETIC PEPTIDE; Value: 332; Range: <100; Abnormal: Above high normal; Units: PG/ML; Status: F Lab Order: Basic Metabolic Profile; SPEC'M 04/13/16 14:54 Test: GLUCOSE, FASTING; Value: 165; Range: 83-110; Abnormal: Above high normal; Units: MG/DL; Status: F Test: BLOOD UREA NITROGEN; Value: 19; Range: 7-18; Abnormal: Above high normal; Units: MG/DL; Status: F Test: CREATININE FOR GFR; Value: 0.77; Range: 0.55-1.02; Units: MG/DL; Status: F Test: GLOMERULAR FILTRATION RATE; Value: > 60.0; Range: >39; Status: F Test: SODIUM LEVEL; Value: 135; Range: 136-145; Abnormal: Below low normal; Units: MEQ/L; Status: F Test: POTASSIUM SERUM; Value: 3.4; Range: 3.5-5.1; Abnormal: Below low normal; Units: MEQ/L; Status: F Test: CHLORIDE LEVEL; Value: 97; Range: 98-107; Abnormal: Below low normal; Units: MEQ/L; Status: F Test: CARBON DIOXIDE LEVEL; Value: 27; Range: 21-32; Units: MEQ/L; Status: F Test: ANION GAP; Value: 11; Range: 8-16; Units: MEQ/L; Status: F Test: CALCIUM LEVEL; Value: 9.0; Range: 8.8-10.2; Units: MG/DL; Status: F Test Note: ; Units are mL/min/1.73 m2 Chronic Kidney Disease Staging per NKF: Stage I & II GFR >=60 Normal to Mildly Decreased Stage III GFR 30-59 Moderately Decreased Stage IV GFR 15-29 Severely Decreased Stage V GFR <15 Very Little GFR Left ESRD GFR <15 on NITRO MAN Lab Order: CBC with Diff; SPEC'M 04/13/16 14:54 Test: WHITE BLOOD COUNT; Value: 8.7; Range: 4.0-10.0; Units: K/mm3; Status: F Test: RED BLOOD COUNT; Value: 3.90; Range: 4.00-5.40; Abnormal: Below low normal; Units: M/mm3; Status: F Test: HEMOGLOBIN; Value: 12.7; Range: 12.0-16.0; Units: g/dl; Status: F Test: HEMATOCRIT; Value: 36.3; Range: 36.0-47.0; Units: %; Status: F Test: MEAN CORPUSCULAR VOLUME; Value: 93.0; Range: 80.0-96.0; Units: fl; Status: F Test: MEAN CORPUSCULAR HEMOGLOBIN; Value: 32.5; Range: 27.0-33.0; Units: pg; Status: F Test: MEAN CORPUSCULAR HGB CONC; Value: 35.0; Range: 32.0-36.5; Units: g/dl; Status: F Test: RED CELL DISTRIBUTION WIDTH; Value: 14.2; Range: 11.5-14.5; Units: %; Status: F Test: PLATELET COUNT, AUTOMATED; Value: 126; Range: 150-450; Abnormal: Below low normal; Units: k/mm3; Status: F Test: NEUTROPHILS %; Value: 86.8; Range: 36.0-66.0; Abnormal: Above high normal; Units: %; Status: F Test: LYMPH %; Value: 6.7; Range: 24.0-44.0; Abnormal: Below low normal; Units: %; Status: F Test: MONO %; Value: 4.4; Range: 0.0-5.0; Units: %; Status: F Test: EOS %; Value: 0.7; Range: 0.0-3.0; Units: %; Status: F Test: BASO %; Value: 0.2; Range: 0.0-1.0; Units: %; Status: F Test: LARGE UNSTAINED CELL %; Value: 1.2; Range: 0.0-4.0; Units: %; Status: F Test: NEUTROPHILS #; Value: 7.6; Range: 1.8-7.7; Units: K/mm3; Status: F Test: LYMPH #; Value: 0.6; Range: 1.5-4.5; Abnormal: Below low normal; Units: K/mm3; Status: F Test: MONO #; Value: 0.4; Range: 0.0-0.8; Units: K/mm3; Status: F Test: EOS #; Value: 0.1; Range: 0.0-0.50; Units: K/mm3; Status: F Test: BASO #; Value: 0.0; Range: 0.0-0.2; Units: K/mm3; Status: F Test: LARGE UNSTAINED CELL #; Value: 0.1; Range: 0.0-0.4; Units: K/mm3; Status: F Lab Order: Cardiac Injury Profile; [facility] 04/13/16 14:54 Test: CPK CREATINE PHOSPHOKINASE; Value: 155; Range: 26-192; Units: U/L; Status: F Test: CK-MB VALUE MASS; Value: 1.5; Range: 0.0-3.6; Units: NG/ML; Status: F Test: MB/CK RELATIVE INDEX; Value: 0.96; Range: < OR =4; Status: F Test Note: ; DIAGNOSIS CRITERIA MMB ng/ml Relative Index (RI) NON-AMI < or = 5 N/A FRANZ ZONE > 5 < or = 4 AMI > 5 > 4 Lab Order: Troponin; [facility] 04/13/16 14:54 Test: TROPONIN I; Value: 0.02; Range: < 0.10; Units: NG/ML; Status: F Test Note: ; Troponin I Reference Interval for [employer] LOCI: 99th Percentile= 0.00-0.045 ng/ml Risk Stratification: <= 0.10 ng/ml Decreased Risk for Adverse Clinical Events. 0.10-1.50 ng/ml Increased Risk for Adverse Clinical Events. Evaluation of additional criterion and/or repeat testing in 2-6 hours is suggested to rule out myocardial damage. >= 1.50 ng/ml Indicative of Myocardial Injury. Lab Order: PT/INR; [facility] 04/13/16 14:54 Test: PROTHROMBIN TIME; Value: 22.5; Range: 12.3-14.5; Abnormal: Above high normal; Units: SECONDS; Status: F Test: INR; Value: 1.97; Status: F Test Note: ; THERAPUTIC HUMAN INR VALUES INDICATIONS NORMAL RANGES PROPHYLAXIS/TREATMENT OF: VENOUS THROMBOSIS 2.0-3.0 PULMONARY EMBOLISM 2.0-3.0 PREVENTION OF SYSTEMIC EMBOLISM FROM: TISSUE HEART VALVES 2.0-3.0 ACUTE MYOCARDIAL INFARCTION 2.0-3.0 VALVULAR HEART DISEASE 2.0-3.0 ATRIAL FIBRILLATION 2.0-3.0 MECHANICAL VALVES(HIGH RISK) 2.5-3.5 RECURRENT MYOCARDIAL INFARCTION 2.5-3.5 Test: D-DIMER QUANT; Range: <500; Units: ng/ml; Status: I Lab Order: D-DIMER QUANT; SPEC'M 04/13/16 14:54 Test: D-DIMER QUANT; Value: 635.9; Range: <500; Abnormal: Above high normal; Units: ng/ml; Status: F Lab Order: CARDIAC MARKER PANEL; SPEC'M 04/13/16 20:22 Test: CPK CREATINE PHOSPHOKINASE; Value: 118; Range: 26-192; Units: U/L; Status: F Test: CK-MB VALUE MASS; Value: 1.0; Range: 0.0-3.6; Units: NG/ML; Status: F Test: MB/CK RELATIVE INDEX; Value: 0.84; Range: < OR =4; Status: F Test: TROPONIN I; Value: < 0.02; Range: < 0.10; Units: NG/ML; Status: F Test Note: ; DIAGNOSIS CRITERIA MMB ng/ml Relative Index (RI) NON-AMI < or = 5 N/A FRANZ ZONE > 5 < or = 4 AMI > 5 > 4 Radiology Order: portable chest Test: portable chest REASON FOR EXAMINATION: Chest Pain; ; SEMIUPRIGHT AP PORTABLE CHEST: 04/13/2016; ; INDICATION: Chest pain.; ; There has been a prior median sternotomy as well as valvular prosthesis within; the heart. There is elevation of the left hemidiaphragm, mildly decreased from; prior studies. There is left lower lobe atelectasis and/ or pleural effusion,; moderate. 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 There is; significant narrowing within the right subacromial space consistent with rotator; cuff arthropathy.; ; IMPRESSION:; 1. Prior median sternotomy with mild cardiomegaly, unchanged.; 2. Elevated left hemidiaphragm with left basilar atelectasis/infiltrate; superimposed on pleural effusion.; 3. Small amount of right basilar atelectasis. Pulmonary venous hypertension..; ; MTDD Radiology Order: EKG-ADULT Test: EKG-ADULT REASON FOR EXAMINATION: Chest Pain; Stationary ECG Study; [facility] ED; ; Test Date: 2016-04-13; Pat Name: LAUREEN BRUCE Department:; Room: -; Gender: F Hair Baler: rn; : 1940 Requested By: Anita Hensley; Order Number: [id number] Reading MD: Rudy Aguero; Measurements; Intervals Dalton; Rate: 83 P: 21; AR: 172 QRS: -19; QRSD: 97 T: 12; QT: 383; QTc: 452; Interpretive Statements; SINUS RHYTHM; LEFT ATRIAL ENLARGEMENT; LEFT VENTRICULAR HYPERTROPHY; INFERIOR MYOCARDIAL INFARCTION, OF INDETERMINATE AGE; NO PRIORS; Electronically Signed On 04-13-2016 21:21:05 EST by Rudy Aguero; Radiology Order: ECG WITH READING ER PHYS Test: ECG WITH READING ER PHYS REASON FOR EXAMINATION: CHEST PAIN; Stationary ECG Study; [facility] ED; ; Test Date: 2016-04-13; Pat Name: LAUREEN BRUCE Department:; Room: -; Gender: F Hair Baler: jocelynn; : 1940 Requested By: ANA YANCEY; Order Number: [id number] Reading MD: Rudy Aguero; Measurements; Intervals Dalton; Rate: 83 P: 24; AR: 176 QRS: -20; QRSD: 94 T: 14; QT: 379; QTc: 447; Interpretive Statements; SINUS RHYTHM; LEFT ATRIAL ENLARGEMENT; POSSIBLE LEFT VENTRICULAR HYPERTROPHY; INFERIOR MYOCARDIAL INFARCTION, PROBABLY OLD; ; Electronically Signed On 04-13-2016 21:21:34 EST by Rudy Aguero; Radiology Order: CT Chest Angio R/O PE Test: CT Chest Angio R/O PE REASON FOR EXAMINATION: pleuritic cp elevated d-dimer; CTA CHEST, 04/13/2016:; ; INDICATION: Pleuritic chest pain, elevated D-dimer.; ; COMPARISON: Portable chest also performed earlier today on 04/13/2016 at 2:34; pm.; ; TECHNIQUE: Following dynamic IV contrast administration with 75 mL Isovue-370; mg/mL 3 mm contiguous spiral axial sections were performed through the chest.; ; FINDINGS: There has been a prior median sternotomy and there is a valvular; prosthesis within the region of the aortic valve. The thoracic aorta is without; aneurysm or dissection. Moderate calcifications are seen in the aortic arch.; There is homogeneous opacification of the central pulmonary arteries without; filling defects or findings to suggest pulmonary artery embolus. There is dense; consolidation within the left lower lobe and lingula consistent with infiltrate; and a small amount of atelectasis. There are no pleural effusions. A small; amount; of right basilar atelectasis and/or fibrotic scarring is present.; ; Visualized portions of liver within normal limits. The spleen is incompletely; included in view, but mildly enlarged measuring greater than 13.5 cm in length.; The stomach is contracted in its visualized portions. Moderate atherosclerotic; changes are noted in the abdominal aorta, which is ectatic. There is thickening; of the adrenal glands which cannot be adequately assessed in the presence of IV; contrast. Visualized portion of the pancreas within kian limits.; ; Visualized portions of kidneys without hydronephrosis.; ; IMPRESSION:; 1. No visualized pulmonary artery emboli.; 2. Dense consolidation within the left lower lobe and to a lesser extent; lingula.; consistent with infiltrate. Also there are a small amount of superimposed; atelectatic changes.; 3. Fibroatelectatic changes in the right base and the right middle lobe.; 4. Thickening of adrenal glands, yet they are indeterminate, and cannot be; adequately; evaluated in the presence of IV contrast.; ; ; ; Unreviewed; MTDD Radiology Order: ECG WITH READING ER PHYS Test: ECG WITH READING ER PHYS REASON FOR EXAMINATION: CHEST PAIN; Stationary ECG Study; [facility] - ED; ; Test Date: 2016-04-13; Pat Name: LAUREEN BRUCE Department:; Room: -; Gender: F Hair Baler: leola; : 1940 Requested By: Anita Hensley; Order Number: [id number] Reading MD: Rudy Aguero; Measurements; Intervals [place]; Rate: 86 P: -20; AR: 140 QRS: -17; QRSD: 94 T: 15; QT: 361; QTc: 433; Interpretive Statements; SINUS RHYTHM; LAE; MODERATE VOLTAGE CRITERIA FOR LVH, CONSIDER NORMAL VARIANT; POSSIBLE PRIOR INFERIOR INFARCT; Electronically Signed On 04-13-2016 21:34:23 EST by Rudy Aguero; Outcome: 00:49 Decision to Hospitalize by Provider. mm11 01:39 Discharge Assessment: patient administered narcotics - yes. Patient was admitted to the [address] or transferred to another facility. The following High Risk Discharge criteria are identified: None. Admitted to PCU accompanied by nurse, accompanied by tech, via stretcher, with oxygen, on monitor, with chart. Condition: good. CT Study completed. Admission hand-off: Report Faxed Fax receipt verified by DEN Fragoso. Property :Personal belongings accompany Pt. 01:41 Patient left the ED. [facility] Signatures: Dispatcher [employer] EDMS Anita Hensley MD MD sd1 Claudette Liang, Fadi Reg Matthew Cabrera, RN RN mlb1 Onel Beard, DO mm11 Leonardo Engel jc3 Nabor Son gr2 Zonia Silva, ENERGY SALES BROKER ENERGY SALES BROKER jlf Robbie Duong rn1 Laurie Velasquez jp5 Wilfredo Bettencourt,RN RN jf3 Cammie Maya,RN RN cf2 Clifford Traylor, ENERGY SALES BROKER ENERGY SALES BROKER jmv Corrections: (The following items were deleted from the chart) 04/13 23:21 21:30 General: Appears in no apparent distress, comfortable, Behavior is cooperative, jf3 Pt resting supine on stretcher. net web developer at bedside. Respirations easy and unlabored. Will continue to monitor. [facility] 23:21 21:30 Neurological: [place] [id number] 23:21 21:30 General: [place] [id number] 23:21 22:30 General: Appears in no apparent distress, comfortable, Behavior is cooperative, jf3 Pt resting supine on stretcher with eyes closed. Respirations easy and unlabored. Will continue to monitor. jf3 : 23:20 General: Appears in no apparent distress, comfortable, Behavior is agitated, Pt jf3 with copius liquid stool, incontinent. jf3 : 23:20 Neurological: Level of Consciousness is awake, alert, jf3 jf3 : 23:20 Cardiovascular: Capillary refill < 3 seconds jf3 jf3 23:20 Respiratory: Airway is patent Respiratory effort is even, unlabored, Respiratory jf3 pattern is regular, symmetrical, jf3 : 23:20 Derm: Skin is normal, jf3 jf3 Chart Complete MTDD
--- NOTE | 2016-04-16 02:41 | EDDOCDS ---
Physician Documentation [facility] Name: Laureen Bruce Age: 75 yrs Sex: Female : 1940 Arrival Date: 04/13/2016 Time: 14:17 Bed OBSERVATION Private : Tanika Disposition: 04/14/16 00:49 Hospitalization ordered by Matty Parada for Inpatient Admission. Preliminary diagnosis are Other pneumonia, unspecified organism, Hypoxemia. - Bed requested for PCU. - Status is Inpatient Admission. jf3 - Condition is Stable. - Problem is an acute exacerbation. - Symptoms have improved. Historical: - Allergies: Heparin (Anaphylaxis); - Home Meds: 1. atorvastatin 40 mg oral tab 1 tab nightly 2. Chlorthalidone 12.5 mg Oral 1 tab every -- 3. Coumadin 4 mg Oral tab 1 tab once daily 4. Meclizine Oral 1 tab 3 times per day as needed 5. metoprolol succinate 50 mg tab 1 tab once daily 6. Nexium 40 mg Oral cpDR 1 cap once daily 7. nitroglycerin 0.4 mg SL subl 1 tab every 5 minutes x 3 as needed 8. spironolactone 12.5mg Oral tab 1 tab once daily 9. tramadol 50 mg Oral tab 1 tab every 4-6 hours as needed - PMHx: Diabetes - NIDDM: uncontrolled; DVT; GERD; Hypercholesterolemia; Hypertension; AK; - PSHx: Bilateral Hip Replacement; Cholecystectomy; CABG; Aortic Valve Replacement, Mechanical; - Social history: Smoking status: Patient states was never smoker of tobacco. No barriers to communication noted, The patient speaks fluent Serbian, Speaks appropriately for age. - Family history: Not pertinent. - : The pt / caregiver states he / she is on anticoagulants: coumadin. Home medication list is obtained from the patient. - Exposure Risk Screening:: None identified. Vital Signs: 04/13 14:19 BP 104 / 62; Pulse 102; Resp 18 S; Temp 98.2(O); Pulse Ox 96% on R/A; Weight 72.57 kg / gr2 159.99 lbs (R); Height 5 ft. 5 in. (165.10 cm) (R); Pain 8/10; 14:33 Pulse 92 MON; Pulse Ox 99% ; jf3 14:34 BP 110 / 63 (auto/); jf3 15:02 Pulse 82 MON; Pulse Ox 93% ; jf3 15:04 BP 113 / 60 (auto/); jf3 15:17 Pulse 84 MON; Pulse Ox 93% ; jf3 15:19 BP 111 / 60 (auto/); jf3 15:21 Pulse 84 MON; Pulse Ox 92% ; jf3 15:22 BP 108 / 60 (auto/); jf3 15:48 Pulse 84 MON; Pulse Ox 91% ; jf3 15:49 BP 120 / 61 (auto/); jf3 16:34 BP 105 / 53 (auto/); jf3 16:37 Pulse 86 MON; Pulse Ox 94% ; jf3 16:48 Pulse 84 MON; Pulse Ox 94% ; jf3 16:49 BP 112 / 55 (auto/); jf3 17:04 BP 112 / 57 (auto/); jf3 17:04 Pulse 82 MON; Pulse Ox 93% ; jf3 17:14 Pulse 82 MON; Pulse Ox 94% ; jf3 17:19 BP 111 / 58 (auto/); jf3 17:33 Pulse 84 MON; Pulse Ox 95% ; jf3 17:34 BP 115 / 57 (auto/); jf3 17:48 Pulse 82 MON; Pulse Ox 93% ; jf3 17:49 BP 118 / 67 (auto/); jf3 18:04 BP 115 / 59 (auto/); jf3 18:05 Pulse 82 MON; Pulse Ox 93% ; jf3 18:19 BP 115 / 60 (auto/); jf3 18:19 Pulse 84 MON; Pulse Ox 92% ; jf3 18:24 Pulse 82 MON; Pulse Ox 96% ; jf3 18:25 BP 119 / 58 (auto/); jf3 18:32 Pulse 86 MON; Pulse Ox 92% ; jf3 18:34 BP 122 / 56 (auto/); jf3 18:48 Pulse 84 MON; Pulse Ox 92% ; jf3 18:49 BP 124 / 64 (auto/); jf3 19:03 Pulse 86 MON; Pulse Ox 91% ; jf3 19:04 BP 121 / 65 (auto/); jf3 19:19 BP 125 / 63 (auto/); jf3 19:19 Pulse 84 MON; Pulse Ox 93% ; jf3 19:28 Pulse 78 MON; Pulse Ox 92% ; jf3 19:34 BP 125 / 67 (auto/); jf3 19:49 BP 131 / 66 (auto/); jf3 19:50 Pulse 86 MON; Pulse Ox 92% ; jf3 20:04 BP 129 / 61 (auto/); jf3 20:04 Pulse 88 MON; Pulse Ox 92% ; jf3 20:19 BP 125 / 64 (auto/); jf3 20:21 Pulse 88 MON; Pulse Ox 93% ; jf3 21:17 BP 157 / 103 (auto/); jf3 21:19 Pulse 96 MON; Pulse Ox 96% ; jf3 21:31 Pulse 82 MON; Pulse Ox 98% ; jf3 21:32 BP 143 / 88 (auto/); jf3 21:46 Pulse 82 MON; Pulse Ox 98% ; jf3 21:47 BP 135 / 85 (auto/); jf3 22:01 Pulse 88 MON; Pulse Ox 98% ; jf3 22:02 BP 129 / 103 (auto/); jf3 22:17 BP 144 / 93 (auto/); jf3 22:17 Pulse 86 MON; Pulse Ox 98% ; jf3 22:31 Pulse 98 MON; Pulse Ox 97% ; jf3 22:32 BP 155 / 103 (auto/); jf3 22:32 Pulse 82 MON; Pulse Ox 96% ; jf3 22:34 BP 124 / 63 (auto/); jf3 22:35 Pulse 102 MON; Pulse Ox 97% ; jf3 22:36 BP 152 / 88 (auto/); jf3 22:46 Pulse 94 MON; Pulse Ox 97% ; jf3 22:47 BP 141 / 86 (auto/); jf3 22:47 Pulse 88 MON; Pulse Ox 94% ; jf3 22:49 BP 130 / 65 (auto/); jf3 23:03 Pulse 88 MON; Pulse Ox 93% ; jf3 23:04 BP 129 / 67 (auto/); jf3 23:16 BP 145 / 90; Pulse 90; Resp 18; Temp 98(TE); Pulse Ox 98% on R/A; jf3 23:19 BP 124 / 64 (auto/); jf3 23:19 Pulse 90 MON; Pulse Ox 94% ; jf3 23:34 BP 131 / 67 (auto/); jf3 23:35 Pulse 88 MON; Pulse Ox 94% ; jf3 04/14 00:04 BP 125 / 65 (auto/); jf3 00:04 Pulse 86 MON; Pulse Ox 95% ; jf3 00:19 BP 129 / 67 (auto/); jf3 00:19 Pulse 90 MON; Pulse Ox 96% ; jf3 00:33 Pulse 90 MON; Pulse Ox 94% ; jf3 00:34 BP 127 / 64 (auto/); jf3 00:49 BP 125 / 62 (auto/); jf3 00:49 Pulse 86 MON; Pulse Ox 94% ; jf3 00:59 Pulse 96 MON; Pulse Ox 95% ; jf3 01:04 BP 136 / 67 (auto/); jf3 01:18 Pulse 82 MON; Pulse Ox 95% ; jf3 01:19 BP 129 / 61 (auto/); jf3 01:25 BP 130 / 70; Pulse 86; Resp 18; Temp 99.1(O); Pulse Ox 95% 2 lpm ; Pain 8/10; jf3 04/13 14:19 Body Mass Index 26.63 (72.57 kg, 165.10 cm) gr2 MDM: 04/13 14:27 Barber Tool Sharpener/Pulse Ox/q 30 min VS ordered. sd1 14:27 IV Saline Lock ordered. sd1 14:27 Rhythm Strip to chart ordered. sd1 14:27 Undress patient appropriately for examination ordered. sd1 14:27 B-Type Natiuretic Peptide Ordered. EDMS 14:27 Basic Metabolic Profile Ordered. EDMS 14:27 CBC with Diff Ordered. EDMS 14:27 Cardiac Injury Profile Ordered. EDMS 14:27 Troponin Ordered. EDMS 14:29 portable chest Ordered. EDMS 14:29 ECG WITH READING ER PHYS+CARDIAG ordered. EDMS 14:49 [facility] Acquisition Order ordered. sd1 14:49 Aspirin Chewable Tablet 324 mg PO once ordered. sd1 14:50 morphine 2 mg IVP every 15 minutes; Document pain score/vitals after each dose (Hold if sd1 SBP < 90mmHg) x3 ordered. 14:51 PT/INR Ordered. EDMS 15:08 Misc Director Talent Acquisition Order complete. deg 15:15 [facility] [place] was scanned into [employer] and attached to record. jp5 15:15 Financial registration complete. jp5 15:26 B-Type Natiuretic Peptide Reviewed. sd1 15:26 CBC with Diff Reviewed. sd1 15:26 PT/INR Reviewed. sd1 15:29 portable chest Reviewed. sd1 15:35 Basic Metabolic Profile Reviewed. sd1 15:35 Cardiac Injury Profile Reviewed. sd1 15:35 Troponin Reviewed. sd1 15:48 D-DIMER QUANT Ordered. EDMS 15:58 Repeat EKG (put time details section) ordered. sd1 16:02 Repeat EKG (put time details section) complete. deg 16:02 ECG WITH READING ER PHYS ordered. EDMS 16:08 PT/INR Reviewed. sd1 16:08 D-DIMER QUANT Reviewed. sd1 16:10 CT Chest Angio R/O PE Ordered. EDMS 16:50 Redraw CIP &Troponin (put time in details section) ordered. sd1 16:50 Repeat EKG (put time details section) ordered. sd1 17:05 Redraw CIP &Troponin (put time in details section) complete. deg 17:05 Repeat EKG (put time details section) complete. deg 17:07 ECG WITH READING ER PHYS ordered. EDMS 17:07 CARDIAC MARKER PANEL Ordered. EDMS 17:33 cefTRIAXone 1 grams IVPB once over 30 mins; dilute in 50mL of NS or D5W ordered. sd1 17:34 Doxycycline 100 mg PO once ordered. sd1 17:35 traMADol 50 mg PO once ordered. sd1 21:36 CARDIAC MARKER PANEL Reviewed. mm11 21:36 CT Chest Angio R/O PE Reviewed. mm11 22:07 Albuterol-Ipratropium 3 ml Inhalation once ordered. mm11 22:07 Call Respiratory ordered. mm11 22:13 Call Respiratory complete. tmm1 23:26 BED REQUEST+ADM ordered. EDMS 04/14 00:33 INFLUENZA A&B RAPID ANTIGEN Ordered. EDMS 00:33 SPUTUM CULTURE AND GRAM STAIN Ordered. EDMS 00:34 Admission / Observation Status ordered. EDMS 00:34 NO ADDED SALT DIET ordered. EDMS 00:54 BLOOD CULTURES Ordered. EDMS 00:54 BLOOD CULTURES Ordered. EDMS 00:56 PROTHROMBIN TIME PROFILE\E\INR Ordered. EDMS 00:56 CARDIAC MARKER PANEL Ordered. EDMS 00:56 BASIC METABOLIC PROFILE Ordered. EDMS 00:56 CBC WITH DIFFERENTIAL Ordered. EDMS 12:11 T-Sheet-- Draft Copy was scanned into [employer] and attached to record. gb 12:11 ECG/EKG was scanned into [employer] and attached to record. gb 12:11 Trend VS was scanned into [employer] and attached to record. gb Administered Medications: 04/13 15:16 CANCELLED (Patient Refused): Ondansetron 4 mg IVP once jf3 15:25 Drug: Aspirin 243 mg [aspirin 81 mg chewable tablet (3 tabs)] {Note: pt took 1 81mg ASA jf3 earlier today. Dr Karin mccarthy.} Route: PO; 04/14 01:41 Follow up: Response: No Adverse Reaction jf3 04/13 15:35 Not Given (Patient Refused): morphine 2 mg IVP every 15 minutes; Document pain jf3 score/vitals after each dose (Hold if SBP < 90mmHg) x3 18:30 Drug: cefTRIAXone 1 grams [ceftriaxone 1 gram solution for injection] Route: IVPB; jf3 Infused Over: 30 mins; Site: left antecubital; 20:24 Follow up: Response: No Adverse Reaction; IV Intake: 50ml jf3 18:30 Drug: Doxycycline 100 mg [doxycycline hyclate 100 mg tablet (1 tabs)] Route: PO; jf3 20:24 Follow up: Response: No Adverse Reaction jf3 18:30 Drug: traMADol 50 mg [tramadol 50 mg tablet (1 tabs)] Route: PO; jf3 20:24 Follow up: Response: Pain is decreased jf3 22:27 Drug: Albuterol-Ipratropium 3 ml [ipratropium-albuterol 0.5 mg-3 mg(2.5 mg base)/3 mL jc3 nebulization soln (3 mL)] Route: Inhalation; Signatures: [facility]patcher [facility] EDWI Anita Hensley MD MD sd1 Anneliese Mccurdy, Die Tripper Unit deg Reva LENZ, DEN Cobian RN, Gloria, Reg Reg Matthew Cabrera RN RN mlb1 Onel Beard DO DO mm11 McLdoris, Lora, FILM CRITIC FILM CRITIC tmm1 Laurie Velasquez jp5 Wilfredo Bettencourt,DEN RN jf3 Leonardo Engel jc3 The chart was reviewed and I authenticate all verbal orders and agree with the evaluation and treatment provided.Corrections: (The following items were deleted from the chart) 15:16 14:50 Ondansetron 4 mg IVP once ordered. sd1 jf3 15:48 15:42 D-DIMER QUANT+LAB ordered. EDMS EDMS Attachments: 15:15 [facility] [place] Agreement jp5 04/14 12:11 T-Sheet-- Draft Copy gb 12:11 ECG/EKG gb Chart Complete MTDD
[2016-04-16] MEDS: cefTRIAXone SOD 2 GM in D5W MINI-BAG PLUS 50 ML IV SCH (04:19)
[2016-04-16] MEDS: traMADol 50 MG TAB PO PRN (04:50)
[2016-04-16] MEDS: SLF 3 ML SYR IV SCH ×2 (05:24→13:29)
[2016-04-16 06:00] VITALS: BP 134/63
[2016-04-16 06:29] LABS: MEAN CORPUSCULAR HEMOGLOBIN 32.7 pg (27.0-33.0); MEAN CORPUSCULAR HGB CONC 34.8 g/dl (32.0-36.5); MEAN CORPUSCULAR VOLUME 93.9 fl (80.0-96.0); RED CELL DISTRIBUTION WIDTH 14.1 % (11.5-14.5); WHITE BLOOD COUNT 6.6 K/mm3 (4.0-10.0)
[2016-04-16 06:34] LABS: INR 2.79
[2016-04-16 06:46] LABS: ANION GAP 9 MEQ/L (8-16); BLOOD UREA NITROGEN 14 MG/DL (7-18); CALCIUM LEVEL 8.6 MG/DL (8.8-10.2); CARBON DIOXIDE LEVEL 30 MEQ/L (21-32); CHLORIDE LEVEL 99 MEQ/L (98-107); CREATININE FOR GFR 0.57 MG/DL (0.55-1.02); GLOMERULAR FILTRATION RATE > 60.0 (>39); GLUCOSE, FASTING 136 MG/DL (83-110); MAGNESIUM LEVEL 1.8 MG/DL (1.8-2.4); POTASSIUM SERUM 3.5 MEQ/L (3.5-5.1); SODIUM LEVEL 138 MEQ/L (136-145)
[2016-04-16 09:42] VITALS: BP 134/63
[2016-04-16] MEDS: METOPROLOL SUCC (TopROL XL) 50MG **XL** TAB PO SCH (09:42)
[2016-04-16] MEDS: PANTOPRAZOLE 40MG TAB (PROTONIX) PO SCH (09:42)
[2016-04-16] MEDS: ASPIRIN 81 MG ENTERIC TAB PO SCH (09:42)
--- NOTE | 2016-04-16 14:04 | NOCOX ---
DATE OF PROCEDURE: 04/14/2016 INTERPRETATION: Nocturnal recording oximetry was performed initially starting on room air and then with the addition of 1 liter by nasal cannula. A total of 9 hours and 21 minutes of data was reviewed. Mean oxygen saturation for this study is listed at 88%. Oxygen saturation jesusita is listed on the print out at 79%. There were several regions of variation in the SpO2 waveform suggestive of sleep disordered breathing. 1 liter of oxygen was added at 2350 hours for a saturation of 81%. Even on 1 liter, it appears that her mean oxygenation was in the high 80s. IMPRESSION: 1. Hypoxemia, improved, though it does not appear to be eradicated on 1 liters via nasal cannula. Suggest consideration of 2 liters by nasal cannula. 2. Fluctuations in the SpO2 waveform suggestive of sleep disordered breathing. Clinical correlation will be necessary.
[2016-04-16] MEDS ORDERED: ZITH500T PO (17:15)
--- NOTE | 2016-04-16 17:43 | DS.PDOC ---
Discharge Summary General Date of Admission Apr 14, 2016 at 00:29 Date of Discharge Apr 16, 2016 at 15:45 Discharge Summary DATE OF ADMISSION: 04/14/2016 DATE OF DISCHARGE: 04/16/2016 PRIMARY CARE PHYSICIAN: Grecia Jimenez DISCHARGE DIAGNOS(E)S: Community acquired pneumonia Hypoxia HPI & HOSPITAL COURSE: 75-year-old female with osteoarthritis, spinal stenosis, aortic valve dysfunction, history of CT, hypertension, hiatal hernia, chronic joint pain who presented with substernal chest pain. She initially saw her lace inspector early in the week after this pain began, and was given a clean bill of health. She continued to have some nasal congestion so she came to the ER. In the ER, she was noted to have a left lower lobe consolidation. Flu screen and blood cultures were negative. The patient was afebrile with a normal white count. She initially required approximately 2 L of oxygen, but on the day of discharge, she was stable on room air. She has been on azithromycin and Rocephin, and she is being discharged on azithromycin. She was also noted to have an elevated d- dimer in the emergency department, but a CTA was negative for pulmonary embolism. She takes Coumadin for her aortic valve dysfunction. Dr. Serrano spoke with Dr. Cheng regarding her INR goal, and he was told that it was 2 - 3. INR upon admission was 1.79, but without any adjustments to her Coumadin, her INR was therapeutic on hospital day 2, and remained therapeutic. She was continued on her home aspirin, beta amber, and statin for her history of coronary artery disease. Her blood pressure was controlled on her home beta amber, chlorthalidone, and spironolactone. Her chronic pain was controlled with her home tramadol. She was instructed to follow-up with Ms. Jimenez next week, as well as with Dr. Cheng [facility] in 1-2 weeks. She is also being referred for sleep study at discharge, as she was noted to have an abnormal nocturnal oximetry test. PHYSICAL EXAMINATION ON DISCHARGE: VITAL SIGNS: Vital Signs Date Time Temp Pulse Resp B/P Pulse Ox O2 Delivery O2 Flow Rate FiO2 04/16/16 09:42 62 134/63 04/16/16 09:00 Room Air 04/16/16 06:00 97.4 17 95 1.0 GENERAL: Awake, alert, no acute distress CARDIOVASCULAR EXAMINATION: Regular rate and rhythm, with no rubs, gallops, or murmur. RESPIRATORY EXAMINATION: Clear to auscultation bilaterally with no wheezes, rales, or rhonchi. ABDOMINAL EXAMINATION: Soft, nontender, nondistended. Bowel sounds present. EXTREMITIES: No clubbing or edema noted. 2+ pulses in the radial bilaterally. DISPOSITION: Home DISCHARGE INSTRUCTIONS: Follow-up with PCP Tony within 1 week. Follow-up with [facility] in 1-2 weeks; needs to have a sleep study. Follow-up with Dr. Cheng in 1-2 weeks. If symptoms return, or if you experience worsening of your symptoms, please call your doctor or return to the emergency department. ITEMS THAT NEED OUTPATIENT FOLLOWUP: Needs a sleep study with [facility] Patient was seen and examined by me on the day of discharge, and I spent a total time of greater than 30 minutes on this discharge. Vital Signs/I&Os Vital Signs Date Time Temp Pulse Resp B/P Pulse Ox O2 Delivery O2 Flow Rate FiO2 04/16/16 09:42 62 134/63 04/16/16 09:00 Room Air 04/16/16 06:00 97.4 17 95 1.0 I&O- Last 24 Hours up to 6 AM 04/16/16 06:00 Intake Total 650 ml Output Total 1050 ml Balance -400 ml Laboratory Data Labs 24H Laboratory Tests 2 04/16/16 06:13: Anion Gap 9, Blood Urea Nitrogen 14, Creatinine 0.57, Sodium Level 138, Potassium Level 3.5, Chloride Level 99, Carbon Dioxide Level 30, Calcium Level 8.6L, Glomerular Filtration Rate > 60.0, Magnesium Level 1.8, Prothromb Time International Ratio 2.79, Prothrombin Time 29.5H CBC/BMP Laboratory Tests 04/16/16 06:13 Calcium Level 8.6 L, Red Blood Count 3.54 L, Mean Corpuscular Volume 93.9, Mean Corpuscular Hemoglobin 32.7, Mean Corpuscular Hemoglobin Concent 34.8, Red Cell Distribution Width 14.1 Microbiology Microbiology 04/14/16 Blood Culture - Preliminary, Resulted No Growth after 48 hours. All Specime... 04/14/16 Blood Culture - Preliminary, Resulted No Growth after 48 hours. All Specime... 04/14/16 Influenza Virus Type A Antigen - Final, Complete 04/14/16 Influenza Virus Type B Antigen - Final, Complete Medications Scheduled Aspirin (Aspirin) 81 Mg Tab 81 MG PO DAILY Atorvastatin Calcium (Atorvastatin Calcium) 40 Mg Tab 40 MG PO QHS Azithromycin (Zithromax) 500 Mg Tab 500 MG PO DAILY Azithromycin (Zithromax) 500 Mg Tab 500 MG PO DAILY Chlorthalidone (Chlorthalidone) 12.5 Mg Halftab 12.5 MG PO DAILY @ 1100 Esomeprazole Magnesium Trihydr (Nexium) 40 Mg Cap 40 MG PO DAILY Metoprolol Succinate (Metoprolol Succinate ER) 50 Mg Tab 50 MG PO DAILY Spironolactone (Spironolactone) 25 Mg Tab 12.5 MG PO DAILY @ 1400 Warfarin Sod (Coumadin) 4 Mg Tab 4 MG PO QPM @ 1900 Scheduled PRN Acetaminophen (Tylenol 8 Hour Arthritis) 650 Mg Tab 650 MG PO Q8H PRN PRN PAIN Nitroglycerin (Nitrostat) 0.4 Mg Subl 0.4 MG SL Q5MP PRN PRN ANGINA Tramadol HCl (Tramadol HCl) 50 Mg Tab 50 MG PO Q4H PRN PRN PAIN Allergies Coded Allergies: Heparin (Unverified Allergy, Unknown, Anaphylaxis, 04/14/16) NEGRO VERDE Apr 16, 2016 17:43
== END 2016-04-16 15:45 | disposition home or self-care (01) | DRG 195 ==
LOC: M ED 14:17 → M ED INP 04-14 00:29 → M PCU 04-14 01:53 → M MSPAV 04-15 12:22
PROVIDERS: ADMIT Internal Medicine; ATTEND Hospitalist
DX: J18.9 Pneumonia, unspecified organism (principal); I25.2 Old myocardial infarction; R09.02 Hypoxemia; K44.9 Diaphragmatic hernia without obstruction or gangrene; I10 Essential (primary) hypertension; M25.569 Pain in unspecified knee; M48.00 Spinal stenosis, site unspecified; M54.9 Dorsalgia, unspecified; M19.90 Unspecified osteoarthritis, unspecified site; Z96.641 Presence of right artificial hip joint; Z96.642 Presence of left artificial hip joint; Z90.49 Acquired absence of other specified parts of digestive tract; Z82.49 Family history of ischemic heart disease and other diseases of the circulatory system; Z88.8 Allergy status to other drugs, medicaments and biological substances; Z79.82 Long term (current) use of aspirin; Z79.01 Long term (current) use of anticoagulants; Z95.2 Presence of prosthetic heart valve

== ENCOUNTER 2016-04-20 01:25 | Emergency (ER) | payer MEDICARE, OTHER ==
--- NOTE | 2016-04-20 04:01 | EDDOCDS ---
Nurse's Notes [facility] Name: Laureen Bruce Age: 75 yrs Sex: Female : 1940 Arrival Date: 04/20/2016 Time: 01:25 Bed 9 Private MD: Tanika Diagnosis: Chest pain on breathing;Patient's noncompliance with medical treatment and regimen-signing out AMA Presentation: 04/20 01:40 Presenting complaint: Patient states: recently discharged from hospital with pneumonia af2 (on Sunday), increased difficulty breathing this evening, pain in chest, increased with breathing. Adult Sepsis Screening: The patient does not have new or worsening altered mentation. Patient has a respiratory rate of greater than or equal to 22 (1 point). Systolic blood pressure is greater than 100. Patient has a qSOFA score of 1- Negative Sepsis Screen. Suicide/Homicide risk assessment- the patient denies having any suicidal and/or homicidal ideations and does not present with any other emotional, behavioral or mental health complaints. Status: Patient is not a student services representative or dependent. Transition of care: patient was not received from another setting of care. 01:40 Acuity: FRANKY Level 3 af2 01:40 Method Of Arrival: Walkin/Carried/Asstd af2 Triage Assessment: 01:44 General: Appears distressed, Behavior is crying. Pain: Location: chest Pain currently af2 is 9 out of 10 on a pain scale. Respiratory: Onset: The symptoms/episode began/occurred just prior to arrival, Airway is patent Respiratory effort is labored. Derm: Skin is normal. Historical: - Allergies: Heparin (Anaphylaxis); - Home Meds: 1. atorvastatin 40 mg oral tab 1 tab nightly 2. Chlorthalidone 12.5 mg Oral 1 tab every -- 3. tramadol 50 mg Oral tab 1 tab every 4-6 hours as needed 4. spironolactone 12.5mg Oral tab 1 tab once daily 5. nitroglycerin 0.4 mg SL subl 1 tab every 5 minutes x 3 as needed 6. Nexium 40 mg Oral cpDR 1 cap once daily 7. metoprolol succinate 50 mg tab 1 tab once daily 8. Meclizine Oral 1 tab 3 times per day as needed 9. Coumadin 4 mg Oral tab 1 tab once daily 10. azithromycin 250 mg Oral tab 1 tab once daily - PMHx: Diabetes - NIDDM: uncontrolled; DVT; GERD; Hypercholesterolemia; Hypertension; [place]; - PSHx: Bilateral Hip Replacement; Cholecystectomy; CABG; Aortic Valve Replacement, Mechanical; - The history from nurses notes was reviewed: and elements of the historical information I have obtained differs from that reported to nursing. - Social history: Smoking status: Patient states was never smoker of tobacco. No barriers to communication noted, The patient speaks fluent Croatian. - Family history: Not pertinent. - : The pt / caregiver states he / she is on anticoagulants: coumadin. Home medication list is obtained from the patient. - Exposure Risk Screening:: None identified. - Immunization history:: All immunizations up-to-date. - Social history:: the patient is a non-smoker, the patient does not drink alcohol. Screenin:06 Screening information is obtained from the patient. Fall risk: No risks identified. tm5 Assistance ADL's: requires no assistance with activities of daily living. Abuse/DV Screen: The patient / caregiver reports he/she is: not in a situation that causes fear, pain or injury. Nutritional screening: No deficits noted. Advance Directives: Currently, there is no health care proxy. There is no active DNR order. home support is adequate. Assessment: 01:36 General: Out to see patient. Patient assessed at triage desk. Patient alert and jmb oriented x 3. Lung sounds clear, heart rate regular. Patient reported to have been discharged on Sunday with diagnosis of pneumonia and informed that if she had any concerns to report to ER. Patient shows no signs of respiratory distress or agonal breathing. . 02:06 General: Appears uncomfortable, Behavior is appropriate for age, cooperative. Pain: tm5 Location: chest, left shoulder & left wrist Pain currently is 5 out of 10 on a pain scale. Quality of pain is described as aching, throbbing. Neurological: Level of Consciousness is awake, alert, obeys commands, Oriented to person, place, time. Cardiovascular: Rhythm is sinus rhythm with unifocal PVCs Chest pain is described as vague, episodes past few days. Respiratory: Airway is patent Respiratory effort is even, unlabored, Respiratory pattern is regular, symmetrical, Breath sounds are clear bilaterally. Reports shortness of breath at rest since Sunday when she was discharged from Hospital after Pneumonia admission cough that is non-productive, dry. GI: No deficits noted. : No deficits noted. Derm: Skin is pink, warm & dry. 03:45 General: pt refuses to have any work up done, states that she sees her PCP at 1100 tm5 today & she will have her PCP due her work up in the office, pt states "I don't want to be here any longer", pt signed out AMA per Dr Aguero . Vital Signs: 01:37 BP 190 / 69 RA Sitting (auto/); Pulse 104; Resp 26 S; Temp 98.9(TE); Pulse Ox 95% on af2 R/A; Weight 81.65 kg (R); Height 5 ft. 0 in. (152.40 cm) (R); Pain 8/10; 02:06 BP 140 / 80 (auto/); Pulse 98; Resp 24; Pulse Ox 94% on R/A; Pain 5/10; tm5 02:36 BP 157 / 69 (auto/); tm5 02:36 Pulse 86 MON; Resp 22 S; Pulse Ox 93% on R/A; tm5 03:06 BP 138 / 65 (auto/); tm5 03:06 Pulse 82 MON; Resp 22 S; Pulse Ox 92% on R/A; tm5 01:37 Body Mass Index 35.15 (81.65 kg, 152.40 cm) af2 Vitals: 01:37 Log In Time: April 20, 2016 at 01:25. af2 ED Course: 01:26 Patient visited by Zackery Wen Reg. pm4 01:26 Tanika is Private Physician. pm4 01:26 Patient moved to Waiting pm4 01:42 Triage Initiated af2 01:44 Patient visited by Hayley Moreno,DEN. af2 01:45 Hayley Moreno,RN is Primary Nurse. af2 01:45 Patient moved to 9 af2 02:06 Awaiting ED physician evaluation. tm5 02:06 The patient / caregiver is instructed regarding the plan of care and ED course. Cardiac tm5 monitor on. Pulse ox on. NIBP on. Pillow given. Head of bed elevated. 02:33 EKG done. (by ED staff). Reviewed by Rudy Aguero MD. kb5 02:34 Patient visited by Bib Reese PCA. kb5 02:53 Patient visited by Rosina Tabares RN. tm5 02:53 Awaiting ED physician evaluation. tm5 03:25 Rudy Aguero MD is Attending Physician. pc 03:33 Patient visited by Rosina Tabares RN. tm5 03:34 Awaiting ED physician evaluation. tm5 03:35 Patient visited by Rosina Tabares RN. tm5 03:35 ED physician to see patient. tm5 03:38 Patient visited by Rudy Aguero MD. pc 03:46 Patient moved to Radiology sade 03:49 Patient moved to cz 03:54 [facility] Payment Agreement was scanned into [employer] and attached to record. hs2 03:58 Tanika is Referral Physician. pc 04:00 Patient visited by Rosina Tabares RN. tm5 04:00 No IV's were initiated during this patient's visit. No procedures done that require tm5 assistance. Order Results: There are currently no results for this order. Outcome: 03:58 Patient left against medical advice. pc 04:00 Discharge Assessment: Patient awake, alert and oriented x 3. No cognitive and/or tm5 functional deficits noted. Patient verbalized understanding of disposition instructions. patient administered narcotics - no. The following High Risk Discharge criteria are identified: None. The patient is leaving AMA: AMA form signed, Notification of AMA status is made to the charge nurse, the ED attending physician. Condition: good Condition: stable. No special radiology studies were completed. Property :Personal belongings accompany Pt. 04:00 Patient left the ED. tm5 Signatures: Rudy Aguero MD MD pc Zecher, Calvin, RN RN Boris Day Kristopher, COMMUNICATIONS STATION MANAGER COMMUNICATIONS STATION MANAGER kb5 Ahmet Karimi RN RN Hayley PalmerRN RN af2 Sahra Barnard, Reg Reg hs2 Rosina Tabares,RN RN tm5 Zackery Wen, Reg Reg pm4 MTDD
--- NOTE | 2016-04-20 04:01 | EDDOCDS ---
Physician Documentation [facility] Name: Laureen Bruce Age: 75 yrs Sex: Female : 1940 Arrival Date: 04/20/2016 Time: 01:25 Bed 9 Private MD: Tanika Disposition: 04/20 03:54 Critical Care: Critical care not applicable. pc Disposition: 04/20/16 03:58 Patient has left against medical advice. Impression: Chest pain on breathing, Patient's noncompliance with medical treatment and regimen - signing out AMA. - Patients states they are going to Home/Self Care. - Condition is Unchanged. - Discharge Instructions: Nonspecific Chest Pain, AMA. Medication Reconciliation, Local Pharmacy Hours form. Follow up: Tanika; When: As needed; Reason: Continuance of care. - Problem is new. - Symptoms are unchanged. HPI: 03:39 This 75 yrs old Female presents to ER via Walkin/Carried/Asstd with pc complaints of Breathing Difficulty. 03:39 The history is obtained from the patient. She was admitted to [facility] for pneumonia. pc discharged within the last few days. She developed left chest pain posteriorly yesterday that has not resolved with OTCs. She has pain constantly but is worse with deep breaths or movement. She repeatedly states she lives alone and needs to stay in hospital. She denies any cough, denies fevers or chills. At their worst, the symptoms were a 8 out of 10. In the emergency department, the symptoms are a 5 out of 10. The patient has experienced a previous episode, last week, when she was admitted for similar. Historical: - Allergies: Heparin (Anaphylaxis); - Home Meds: 1. atorvastatin 40 mg oral tab 1 tab nightly 2. Chlorthalidone 12.5 mg Oral 1 tab every -- 3. tramadol 50 mg Oral tab 1 tab every 4-6 hours as needed 4. spironolactone 12.5mg Oral tab 1 tab once daily 5. nitroglycerin 0.4 mg SL subl 1 tab every 5 minutes x 3 as needed 6. Nexium 40 mg Oral cpDR 1 cap once daily 7. metoprolol succinate 50 mg tab 1 tab once daily 8. Meclizine Oral 1 tab 3 times per day as needed 9. Coumadin 4 mg Oral tab 1 tab once daily 10. azithromycin 250 mg Oral tab 1 tab once daily - PMHx: Diabetes - NIDDM: uncontrolled; DVT; GERD; Hypercholesterolemia; Hypertension; [place]; - PSHx: Bilateral Hip Replacement; Cholecystectomy; CABG; Aortic Valve Replacement, Mechanical; - The history from nurses notes was reviewed: and elements of the historical information I have obtained differs from that reported to nursing. - Social history: Smoking status: Patient states was never smoker of tobacco. No barriers to communication noted, The patient speaks fluent Salvadorean. - Family history: Not pertinent. - : The pt / caregiver states he / she is on anticoagulants: coumadin. Home medication list is obtained from the patient. - Exposure Risk Screening:: None identified. - Immunization history:: All immunizations up-to-date. - Social history:: the patient is a non-smoker, the patient does not drink alcohol. ROS: 03:39 All systems are negative except as listed. pc Exam: 03:39 General Appearance: no acute distress, alert. pc 03:39 EENT: normal eye inspection, ears, nose and throat normal, pharynx normal, mucous membranes moist 03:39 Neck: The exam reveals no acute abnormalities. ROM is normal and painless. No nuchal rigidity is noted.. 03:39 Respiratory: no respiratory distress, normal breath sounds, Chest tenderness in the left lateral posterior chest, along lat. dorsi muscle. 03:39 CVS: regular pulse rate, regular rhythm, strong peripheral pulses, normal capillary refill, there is a murmur, systolic, grade 1 out of 6. 03:39 Abdomen: soft, non-tender, no organomegaly, normal bowel sounds. 03:39 Back: Pain is noted in the left mid back. 03:39 Skin: skin color is normal, warm, dry. 03:39 Extremities: no pedal edema. 03:39 Neuro: oriented x 3, cranial nerves normal as tested, no motor deficits, no sensory deficits. Vital Signs: 01:37 BP 190 / 69 RA Sitting (auto/); Pulse 104; Resp 26 S; Temp 98.9(TE); Pulse Ox 95% on af2 R/A; Weight 81.65 kg / 180.01 lbs (R); Height 5 ft. 0 in. (152.40 cm) (R); Pain 8/10; 02:06 BP 140 / 80 (auto/); Pulse 98; Resp 24; Pulse Ox 94% on R/A; Pain 5/10; tm5 02:36 BP 157 / 69 (auto/); tm5 02:36 Pulse 86 MON; Resp 22 S; Pulse Ox 93% on R/A; tm5 03:06 BP 138 / 65 (auto/); tm5 03:06 Pulse 82 MON; Resp 22 S; Pulse Ox 92% on R/A; tm5 01:37 Body Mass Index 35.15 (81.65 kg, 152.40 cm) af2 MDM: 02:11 ECG WITH READING ER PHYS+CARDIAG ordered. EDMS 03:39 Product Marketing Intern/Pulse Ox/q 30 min VS ordered. pc 03:39 Differential Diagnosis: left mid back pain, pleuritic pain, prior history of DVT on pc Coumadin for valvular disease. Plan: labs, EKG, CXR. Data reviewed: old medical records, vital signs, nurses notes, EKG(s). Test interpretation: EKG. 03:50 Financial registration complete. hs2 03:54 [facility] Payment Agreement was scanned into [employer] and attached to record. hs2 03:54 The patient has been re-examined and re-evaluated. There is no appreciated change of pc the patient's symptoms at this time, as she signed out AMA. Disposition: The risks (severe disability/impairment and/or ) and benefits (continued evaluation/treatment of potentially life threatening illness) were explained in detail to the pt/parent/guardian. There is no evidence or suspicion of mental impairment due to drugs, alcohol, brain injury, stroke, dementia, mental delay or medical/psychiatric illness and the pt. is not a minor. The pt. demonstrates capacity/understanding: chose to sign out AMA. EC:39 Rate is 52 beats/min. Rhythm is regular, Normal Sinus Rhythm. QRS [place] is Normal. NM pc interval is normal. QRS interval is normal. QT interval is normal. Q waves are Old in leads III, aVF. T waves are Normal. No ST changes noted. Clinical impression: Sinus bradycardia, LVH, Inferior GA - age indeterminate, and LAE. Signatures: Dispatcher [employer] EDMS Rudy Aguero MD MD pc Hayley Moreno RN RN af2 Sahra Barnard, Reg Reg hs2 Matice,Rosina,RN RN tm5 The chart was reviewed and I authenticate all verbal orders and agree with the evaluation and treatment provided.Corrections: (The following items were deleted from the chart) 03:51 03:39 IV Saline Lock ordered. pc tm5 03:53 03:40 BASIC METABOLIC PROFILE+LAB ordered. EDMS EDMS 03:54 03:40 CBC WITH DIFFERENTIAL+LAB ordered. EDMS EDMS 03:54 03:40 PROTHROMBIN TIME PROFILE\E\INR+LAB ordered. EDMS EDMS 03:56 03:40 Chest, 2 view (PA\E\Lat)+XR ordered. EDMS EDMS Attachments: 03:54 [facility] [place] Agreement hs2 MTDD
--- NOTE | 2016-04-20 07:29 | ECGEPIP ---
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
--- NOTE | 2016-04-22 05:02 | EDDOCDS ---
Nurse's Notes [facility] Name: Laureen Bruce Age: 75 yrs Sex: Female : 1940 Arrival Date: 04/20/2016 Time: 01:25 Bed 9 Private MD: Tanika Diagnosis: Chest pain on breathing;Patient's noncompliance with medical treatment and regimen-signing out AMA Presentation: 04/20 01:40 Presenting complaint: Patient states: recently discharged from hospital with pneumonia af2 (on Sunday), increased difficulty breathing this evening, pain in chest, increased with breathing. Adult Sepsis Screening: The patient does not have new or worsening altered mentation. Patient has a respiratory rate of greater than or equal to 22 (1 point). Systolic blood pressure is greater than 100. Patient has a qSOFA score of 1- Negative Sepsis Screen. Suicide/Homicide risk assessment- the patient denies having any suicidal and/or homicidal ideations and does not present with any other emotional, behavioral or mental health complaints. Status: Patient is not a sales and service officer or dependent. Transition of care: patient was not received from another setting of care. 01:40 Acuity: FRANKY Level 3 af2 01:40 Method Of Arrival: Walkin/Carried/Asstd af2 Triage Assessment: 01:44 General: Appears distressed, Behavior is crying. Pain: Location: chest Pain currently af2 is 9 out of 10 on a pain scale. Respiratory: Onset: The symptoms/episode began/occurred just prior to arrival, Airway is patent Respiratory effort is labored. Derm: Skin is normal. Historical: - Allergies: Heparin (Anaphylaxis); - Home Meds: 1. atorvastatin 40 mg oral tab 1 tab nightly 2. Chlorthalidone 12.5 mg Oral 1 tab every -- 3. tramadol 50 mg Oral tab 1 tab every 4-6 hours as needed 4. spironolactone 12.5mg Oral tab 1 tab once daily 5. nitroglycerin 0.4 mg SL subl 1 tab every 5 minutes x 3 as needed 6. Nexium 40 mg Oral cpDR 1 cap once daily 7. metoprolol succinate 50 mg tab 1 tab once daily 8. Meclizine Oral 1 tab 3 times per day as needed 9. Coumadin 4 mg Oral tab 1 tab once daily 10. azithromycin 250 mg Oral tab 1 tab once daily - PMHx: Diabetes - NIDDM: uncontrolled; DVT; GERD; Hypercholesterolemia; Hypertension; [place]; - PSHx: Bilateral Hip Replacement; Cholecystectomy; CABG; Aortic Valve Replacement, Mechanical; - The history from nurses notes was reviewed: and elements of the historical information I have obtained differs from that reported to nursing. - Social history: Smoking status: Patient states was never smoker of tobacco. No barriers to communication noted, The patient speaks fluent Belgian. - Family history: Not pertinent. - : The pt / caregiver states he / she is on anticoagulants: coumadin. Home medication list is obtained from the patient. - Exposure Risk Screening:: None identified. - Immunization history:: All immunizations up-to-date. - Social history:: the patient is a non-smoker, the patient does not drink alcohol. Screenin:06 Screening information is obtained from the patient. Fall risk: No risks identified. tm5 Assistance ADL's: requires no assistance with activities of daily living. Abuse/DV Screen: The patient / caregiver reports he/she is: not in a situation that causes fear, pain or injury. Nutritional screening: No deficits noted. Advance Directives: Currently, there is no health care proxy. There is no active DNR order. home support is adequate. Assessment: 01:36 General: Out to see patient. Patient assessed at triage desk. Patient alert and jmb oriented x 3. Lung sounds clear, heart rate regular. Patient reported to have been discharged on Sunday with diagnosis of pneumonia and informed that if she had any concerns to report to ER. Patient shows no signs of respiratory distress or agonal breathing. . 02:06 General: Appears uncomfortable, Behavior is appropriate for age, cooperative. Pain: tm5 Location: chest, left shoulder & left wrist Pain currently is 5 out of 10 on a pain scale. Quality of pain is described as aching, throbbing. Neurological: Level of Consciousness is awake, alert, obeys commands, Oriented to person, place, time. Cardiovascular: Rhythm is sinus rhythm with unifocal PVCs Chest pain is described as vague, episodes past few days. Respiratory: Airway is patent Respiratory effort is even, unlabored, Respiratory pattern is regular, symmetrical, Breath sounds are clear bilaterally. Reports shortness of breath at rest since Sunday when she was discharged from Hospital after Pneumonia admission cough that is non-productive, dry. GI: No deficits noted. : No deficits noted. Derm: Skin is pink, warm & dry. 03:45 General: pt refuses to have any work up done, states that she sees her PCP at 1100 tm5 today & she will have her PCP due her work up in the office, pt states "I don't want to be here any longer", pt signed out AMA per Dr Aguero . Vital Signs: 01:37 BP 190 / 69 RA Sitting (auto/); Pulse 104; Resp 26 S; Temp 98.9(TE); Pulse Ox 95% on af2 R/A; Weight 81.65 kg (R); Height 5 ft. 0 in. (152.40 cm) (R); Pain 8/10; 02:06 BP 140 / 80 (auto/); Pulse 98; Resp 24; Pulse Ox 94% on R/A; Pain 5/10; tm5 02:36 BP 157 / 69 (auto/); tm5 02:36 Pulse 86 MON; Resp 22 S; Pulse Ox 93% on R/A; tm5 03:06 BP 138 / 65 (auto/); tm5 03:06 Pulse 82 MON; Resp 22 S; Pulse Ox 92% on R/A; tm5 01:37 Body Mass Index 35.15 (81.65 kg, 152.40 cm) af2 Vitals: 01:37 Log In Time: April 20, 2016 at 01:25. af2 ED Course: 01:26 Patient visited by Zackery Wen Reg. pm4 01:26 Tanika is Private Physician. pm4 01:26 Patient moved to Waiting pm4 01:42 Triage Initiated af2 01:44 Patient visited by Hayley Moreno,DEN. af2 01:45 Hayley Moreno,RN is Primary Nurse. af2 01:45 Patient moved to 9 af2 02:06 Awaiting ED physician evaluation. tm5 02:06 The patient / caregiver is instructed regarding the plan of care and ED course. Cardiac tm5 monitor on. Pulse ox on. NIBP on. Pillow given. Head of bed elevated. 02:33 EKG done. (by ED staff). Reviewed by Rudy Aguero MD. kb5 02:34 Patient visited by Bib Reese PCA. kb5 02:53 Patient visited by Rosina Tabares RN. tm5 02:53 Awaiting ED physician evaluation. tm5 03:25 Rudy Aguero MD is Attending Physician. pc 03:33 Patient visited by Rosina Tabares RN. tm5 03:34 Awaiting ED physician evaluation. tm5 03:35 Patient visited by Rosina Tabares RN. tm5 03:35 ED physician to see patient. tm5 03:38 Patient visited by Rudy Aguero MD. pc 03:46 Patient moved to Radiology sade 03:49 Patient moved to 9 cz 03:54 [facility] Payment Agreement was scanned into [employer] and attached to record. hs2 03:58 Tanika is Referral Physician. pc 04:00 Patient visited by Rosina Tabares RN. tm5 04:00 No IV's were initiated during this patient's visit. No procedures done that require tm5 assistance. 07:36 EKG-ADULT Returned. EDMS 14:43 Refusal of Services was scanned into [employer] and attached to record. gb 14:44 ECG/EKG was scanned into [employer] and attached to record. 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 pc 04:00 Discharge Assessment: Patient awake, alert and oriented x 3. No cognitive and/or tm5 functional deficits noted. Patient verbalized understanding of disposition instructions. patient administered narcotics - no. The following High Risk Discharge criteria are identified: None. The patient is leaving AMA: AMA form signed, Notification of AMA status is made to the charge nurse, the ED attending physician. Condition: good Condition: stable. No special radiology studies were completed. Property :Personal belongings accompany Pt. 04:00 Patient left the ED. tm5 Signatures: Dispatcher [employer] EDMS Rudy Aguero MD MD pc Zecher, Calvin, DEN RN Boris Day Gloria, Reg Reg gb Mary Ann, Bib, TIPPLE WORKER TIPPLE WORKER kb5 Ahmet KarimiRN RN Hayley PalmerRN RN af2 Sahra Barnard, Reg Reg hs2 Rosina Tabares RN RN tm5 Zackery Wen, Reg Reg pm4 Chart Complete FAUSTION
--- NOTE | 2016-04-22 05:02 | EDDOCDS ---
Physician Documentation [facility] Name: Laureen Bruce Age: 75 yrs Sex: Female : 1940 Arrival Date: 04/20/2016 Time: 01:25 Bed 9 Private MD: Tanika Disposition: 04/20 03:54 Critical Care: Critical care not applicable. pc Disposition: 04/20/16 03:58 Patient has left against medical advice. Impression: Chest pain on breathing, Patient's noncompliance with medical treatment and regimen - signing out AMA. - Patients states they are going to Home/Self Care. - Condition is Unchanged. - Discharge Instructions: Nonspecific Chest Pain, AMA. Medication Reconciliation, Local Pharmacy Hours form. Follow up: Tanika; When: As needed; Reason: Continuance of care. - Problem is new. - Symptoms are unchanged. HPI: 03:39 This 75 yrs old Female presents to ER via Walkin/Carried/Asstd with pc complaints of Breathing Difficulty. 03:39 The history is obtained from the patient. She was admitted to [facility] for pneumonia. pc discharged within the last few days. She developed left chest pain posteriorly yesterday that has not resolved with OTCs. She has pain constantly but is worse with deep breaths or movement. She repeatedly states she lives alone and needs to stay in hospital. She denies any cough, denies fevers or chills. At their worst, the symptoms were a 8 out of 10. In the emergency department, the symptoms are a 5 out of 10. The patient has experienced a previous episode, last week, when she was admitted for similar. Historical: - Allergies: Heparin (Anaphylaxis); - Home Meds: 1. atorvastatin 40 mg oral tab 1 tab nightly 2. Chlorthalidone 12.5 mg Oral 1 tab every -- 3. tramadol 50 mg Oral tab 1 tab every 4-6 hours as needed 4. spironolactone 12.5mg Oral tab 1 tab once daily 5. nitroglycerin 0.4 mg SL subl 1 tab every 5 minutes x 3 as needed 6. Nexium 40 mg Oral cpDR 1 cap once daily 7. metoprolol succinate 50 mg tab 1 tab once daily 8. Meclizine Oral 1 tab 3 times per day as needed 9. Coumadin 4 mg Oral tab 1 tab once daily 10. azithromycin 250 mg Oral tab 1 tab once daily - PMHx: Diabetes - NIDDM: uncontrolled; DVT; GERD; Hypercholesterolemia; Hypertension; [place]; - PSHx: Bilateral Hip Replacement; Cholecystectomy; CABG; Aortic Valve Replacement, Mechanical; - The history from nurses notes was reviewed: and elements of the historical information I have obtained differs from that reported to nursing. - Social history: Smoking status: Patient states was never smoker of tobacco. No barriers to communication noted, The patient speaks fluent Tanzanian. - Family history: Not pertinent. - : The pt / caregiver states he / she is on anticoagulants: coumadin. Home medication list is obtained from the patient. - Exposure Risk Screening:: None identified. - Immunization history:: All immunizations up-to-date. - Social history:: the patient is a non-smoker, the patient does not drink alcohol. ROS: 03:39 All systems are negative except as listed. pc Exam: 03:39 General Appearance: no acute distress, alert. pc 03:39 EENT: normal eye inspection, ears, nose and throat normal, pharynx normal, mucous membranes moist 03:39 Neck: The exam reveals no acute abnormalities. ROM is normal and painless. No nuchal rigidity is noted.. 03:39 Respiratory: no respiratory distress, normal breath sounds, Chest tenderness in the left lateral posterior chest, along lat. dorsi muscle. 03:39 CVS: regular pulse rate, regular rhythm, strong peripheral pulses, normal capillary refill, there is a murmur, systolic, grade 1 out of 6. 03:39 Abdomen: soft, non-tender, no organomegaly, normal bowel sounds. 03:39 Back: Pain is noted in the left mid back. 03:39 Skin: skin color is normal, warm, dry. 03:39 Extremities: no pedal edema. 03:39 Neuro: oriented x 3, cranial nerves normal as tested, no motor deficits, no sensory deficits. Vital Signs: 01:37 BP 190 / 69 RA Sitting (auto/); Pulse 104; Resp 26 S; Temp 98.9(TE); Pulse Ox 95% on af2 R/A; Weight 81.65 kg / 180.01 lbs (R); Height 5 ft. 0 in. (152.40 cm) (R); Pain 8/10; 02:06 BP 140 / 80 (auto/); Pulse 98; Resp 24; Pulse Ox 94% on R/A; Pain 5/10; tm5 02:36 BP 157 / 69 (auto/); tm5 02:36 Pulse 86 MON; Resp 22 S; Pulse Ox 93% on R/A; tm5 03:06 BP 138 / 65 (auto/); tm5 03:06 Pulse 82 MON; Resp 22 S; Pulse Ox 92% on R/A; tm5 01:37 Body Mass Index 35.15 (81.65 kg, 152.40 cm) af2 MDM: 02:11 ECG WITH READING ER PHYS+CARDIAG ordered. 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 pc 03:39 Differential Diagnosis: left mid back pain, pleuritic pain, prior history of DVT on pc Coumadin for valvular disease. Plan: labs, EKG, CXR. Data reviewed: old medical records, vital signs, nurses notes, EKG(s). Test interpretation: EKG. 03:50 Financial registration complete. hs2 03:54 [facility] Payment Agreement was scanned into [employer] and attached to record. hs2 03:54 The patient has been re-examined and re-evaluated. There is no appreciated change of pc the patient's symptoms at this time, as she signed out AMA. Disposition: The risks (severe disability/impairment and/or ) and benefits (continued evaluation/treatment of potentially life threatening illness) were explained in detail to the pt/parent/guardian. There is no evidence or suspicion of mental impairment due to drugs, alcohol, brain injury, stroke, dementia, mental delay or medical/psychiatric illness and the pt. is not a minor. The pt. demonstrates capacity/understanding: chose to sign out AMA. 14:43 Refusal of Services was scanned into [employer] and attached to record. 14:44 ECG/EKG was scanned into [employer] and attached to record. EC:39 Rate is 52 beats/min. Rhythm is regular, Normal Sinus Rhythm. QRS [place] is Normal. [place] pc interval is normal. QRS interval is normal. QT interval is normal. Q waves are Old in leads III, aVF. T waves are Normal. No ST changes noted. Clinical impression: Sinus bradycardia, LVH, Inferior [place] - age indeterminate, and LAE. Signatures: Dispatcher [employer] EDMS Rudy Aguero MD MD Claudette Liang, Reg Reg gb Hayley Moreno,RN RN af2 Sahra Barnard, Reg Reg hs2 Rosina Tabares,RN RN tm5 The chart was reviewed and I authenticate all verbal orders and agree with the evaluation and treatment provided.Corrections: (The following items were deleted from the chart) 03:51 03:39 IV Saline Lock ordered. pc tm5 03:53 03:40 BASIC METABOLIC PROFILE+LAB ordered. EDMS EDMS 03:54 03:40 CBC WITH DIFFERENTIAL+LAB ordered. EDMS EDMS 03:54 03:40 PROTHROMBIN TIME PROFILE\E\INR+LAB ordered. EDMS EDMS 03:56 03:40 Chest, 2 view (PA\E\Lat)+XR ordered. EDMS EDMS Attachments: 03:54 [facility] Payment Agreement hs2 14:44 ECG/EKG gb Chart [facility]
--- NOTE | 2016-04-22 05:03 | EDDOCDS ---
Physician Documentation [facility] Name: Laureen Bruce Age: 75 yrs Sex: Female : 1940 Arrival Date: 04/20/2016 Time: 01:25 Bed 9 Private MD: Tanika Disposition: 04/20 03:54 Critical Care: Critical care not applicable. pc Disposition: 04/20/16 03:58 Patient has left against medical advice. Impression: Chest pain on breathing, Patient's noncompliance with medical treatment and regimen - signing out AMA. - Patients states they are going to Home/Self Care. - Condition is Unchanged. - Discharge Instructions: Nonspecific Chest Pain, AMA. Medication Reconciliation, Local Pharmacy Hours form. Follow up: Tanika; When: As needed; Reason: Continuance of care. - Problem is new. - Symptoms are unchanged. HPI: 03:39 This 75 yrs old Female presents to ER via Walkin/Carried/Asstd with pc complaints of Breathing Difficulty. 03:39 The history is obtained from the patient. She was admitted to [facility] for pneumonia. pc discharged within the last few days. She developed left chest pain posteriorly yesterday that has not resolved with OTCs. She has pain constantly but is worse with deep breaths or movement. She repeatedly states she lives alone and needs to stay in hospital. She denies any cough, denies fevers or chills. At their worst, the symptoms were a 8 out of 10. In the emergency department, the symptoms are a 5 out of 10. The patient has experienced a previous episode, last week, when she was admitted for similar. Historical: - Allergies: Heparin (Anaphylaxis); - Home Meds: 1. atorvastatin 40 mg oral tab 1 tab nightly 2. Chlorthalidone 12.5 mg Oral 1 tab every -- 3. tramadol 50 mg Oral tab 1 tab every 4-6 hours as needed 4. spironolactone 12.5mg Oral tab 1 tab once daily 5. nitroglycerin 0.4 mg SL subl 1 tab every 5 minutes x 3 as needed 6. Nexium 40 mg Oral cpDR 1 cap once daily 7. metoprolol succinate 50 mg tab 1 tab once daily 8. Meclizine Oral 1 tab 3 times per day as needed 9. Coumadin 4 mg Oral tab 1 tab once daily 10. azithromycin 250 mg Oral tab 1 tab once daily - PMHx: Diabetes - NIDDM: uncontrolled; DVT; GERD; Hypercholesterolemia; Hypertension; [place]; - PSHx: Bilateral Hip Replacement; Cholecystectomy; CABG; Aortic Valve Replacement, Mechanical; - The history from nurses notes was reviewed: and elements of the historical information I have obtained differs from that reported to nursing. - Social history: Smoking status: Patient states was never smoker of tobacco. No barriers to communication noted, The patient speaks fluent Bahraini. - Family history: Not pertinent. - : The pt / caregiver states he / she is on anticoagulants: coumadin. Home medication list is obtained from the patient. - Exposure Risk Screening:: None identified. - Immunization history:: All immunizations up-to-date. - Social history:: the patient is a non-smoker, the patient does not drink alcohol. ROS: 03:39 All systems are negative except as listed. pc Exam: 03:39 General Appearance: no acute distress, alert. pc 03:39 EENT: normal eye inspection, ears, nose and throat normal, pharynx normal, mucous membranes moist 03:39 Neck: The exam reveals no acute abnormalities. ROM is normal and painless. No nuchal rigidity is noted.. 03:39 Respiratory: no respiratory distress, normal breath sounds, Chest tenderness in the left lateral posterior chest, along lat. dorsi muscle. 03:39 CVS: regular pulse rate, regular rhythm, strong peripheral pulses, normal capillary refill, there is a murmur, systolic, grade 1 out of 6. 03:39 Abdomen: soft, non-tender, no organomegaly, normal bowel sounds. 03:39 Back: Pain is noted in the left mid back. 03:39 Skin: skin color is normal, warm, dry. 03:39 Extremities: no pedal edema. 03:39 Neuro: oriented x 3, cranial nerves normal as tested, no motor deficits, no sensory deficits. Vital Signs: 01:37 BP 190 / 69 RA Sitting (auto/); Pulse 104; Resp 26 S; Temp 98.9(TE); Pulse Ox 95% on af2 R/A; Weight 81.65 kg / 180.01 lbs (R); Height 5 ft. 0 in. (152.40 cm) (R); Pain 8/10; 02:06 BP 140 / 80 (auto/); Pulse 98; Resp 24; Pulse Ox 94% on R/A; Pain 5/10; tm5 02:36 BP 157 / 69 (auto/); tm5 02:36 Pulse 86 MON; Resp 22 S; Pulse Ox 93% on R/A; tm5 03:06 BP 138 / 65 (auto/); tm5 03:06 Pulse 82 MON; Resp 22 S; Pulse Ox 92% on R/A; tm5 01:37 Body Mass Index 35.15 (81.65 kg, 152.40 cm) af2 MDM: 02:11 ECG WITH READING ER PHYS+CARDIAG ordered. 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 pc 03:39 Differential Diagnosis: left mid back pain, pleuritic pain, prior history of DVT on pc Coumadin for valvular disease. Plan: labs, EKG, CXR. Data reviewed: old medical records, vital signs, nurses notes, EKG(s). Test interpretation: EKG. 03:50 Financial registration complete. hs2 03:54 [facility] Payment Agreement was scanned into [employer] and attached to record. hs2 03:54 The patient has been re-examined and re-evaluated. There is no appreciated change of pc the patient's symptoms at this time, as she signed out AMA. Disposition: The risks (severe disability/impairment and/or ) and benefits (continued evaluation/treatment of potentially life threatening illness) were explained in detail to the pt/parent/guardian. There is no evidence or suspicion of mental impairment due to drugs, alcohol, brain injury, stroke, dementia, mental delay or medical/psychiatric illness and the pt. is not a minor. The pt. demonstrates capacity/understanding: chose to sign out AMA. 14:43 Refusal of Services was scanned into [employer] and attached to record. 14:44 ECG/EKG was scanned into [employer] and attached to record. EC:39 Rate is 52 beats/min. Rhythm is regular, Normal Sinus Rhythm. QRS [place] is Normal. [place] pc interval is normal. QRS interval is normal. QT interval is normal. Q waves are Old in leads III, aVF. T waves are Normal. No ST changes noted. Clinical impression: Sinus bradycardia, LVH, Inferior [place] - age indeterminate, and LAE. Signatures: Dispatcher [employer] EDMS Rudy Aguero MD MD Claudette Liang, Reg Reg gb Hayley Moreno,RN RN af2 Sahra Barnard, Reg Reg hs2 Rosina Tabares,RN RN tm5 The chart was reviewed and I authenticate all verbal orders and agree with the evaluation and treatment provided.Corrections: (The following items were deleted from the chart) 03:51 03:39 IV Saline Lock ordered. pc tm5 03:53 03:40 BASIC METABOLIC PROFILE+LAB ordered. EDMS EDMS 03:54 03:40 CBC WITH DIFFERENTIAL+LAB ordered. EDMS EDMS 03:54 03:40 PROTHROMBIN TIME PROFILE\E\INR+LAB ordered. EDMS EDMS 03:56 03:40 Chest, 2 view (PA\E\Lat)+XR ordered. EDMS EDMS Attachments: 03:54 [facility] Payment Agreement hs2 14:44 ECG/EKG gb Chart [facility]
== END 2016-04-20 03:45 | disposition left against medical advice (07) ==
LOC: M ED 01:25
DX: R07.1 Chest pain on breathing (principal); Z91.19 Patient's noncompliance with other medical treatment and regimen; R94.31 Abnormal electrocardiogram [ECG] [EKG]; E11.9 Type 2 diabetes mellitus without complications; I10 Essential (primary) hypertension; I25.2 Old myocardial infarction; E78.00 Pure hypercholesterolemia, unspecified; K21.9 Gastro-esophageal reflux disease without esophagitis; Z86.718 Personal history of other venous thrombosis and embolism; Z95.1 Presence of aortocoronary bypass graft; Z95.2 Presence of prosthetic heart valve; Z79.899 Other long term (current) drug therapy; Z79.01 Long term (current) use of anticoagulants; Z79.2 Long term (current) use of antibiotics; Z88.8 Allergy status to other drugs, medicaments and biological substances; G45.9 Transient cerebral ischemic attack, unspecified

== ENCOUNTER → 2016-04-20 | Outpatient (REF) | payer MEDICARE, OTHER ==
[~2016-04-20] MED LIST: ASPI81TA7 PO; ATOR40TA PO; CHLO125TA PO; COUM1TAB14 PO; METO-207 PO; NEXI40CA PO; NITR4TASL SL; SPIR25TA2 PO; TRAM50TA2 PO; TYLE650T35 PO; ZITH500T PO
[2016-04-20 18:30] LABS: INR 5.54
== END ==
LOC: M LABDRAW1 15:34
PROVIDERS: ATTEND Physician Assistant
DX: G45.9 Transient cerebral ischemic attack, unspecified (principal)

== ENCOUNTER → 2016-04-24 | Outpatient (REF) | payer MEDICARE, OTHER ==
[2016-04-24 10:01] LABS: INR 2.42
== END ==
LOC: M LABDRAW1 09:21
PROVIDERS: ATTEND Nurse Practitioner Family
DX: I48.2 Chronic atrial fibrillation (principal)

== ENCOUNTER → 2016-05-09 | Outpatient (REF) | payer MEDICARE, OTHER ==
[2016-05-09 12:33] LABS: INR 2.33
== END ==
LOC: M LABDRAW1 11:33
PROVIDERS: ATTEND Nurse Practitioner Family
DX: I48.2 Chronic atrial fibrillation (principal)

== ENCOUNTER → 2016-05-09 | Outpatient (REF) | payer MEDICARE, OTHER | LOC: M LABDRAW1 11:38 | PROVIDERS: ATTEND Nurse Practitioner Adult Health | DX: E78.00 Pure hypercholesterolemia, unspecified (principal); E11.9 Type 2 diabetes mellitus without complications; I48.2 Chronic atrial fibrillation; Z51.81 Encounter for therapeutic drug level monitoring; Z79.01 Long term (current) use of anticoagulants ==

== ENCOUNTER 2016-05-12 12:48 | Emergency (ER) | payer MEDICARE, OTHER ==
[2016-05-12] MEDS ORDERED: ASPIRIN 81 MG CHEW TABLET As Ordered ONE (13:31)
[2016-05-12 13:35] LABS: BASO % 0.2 % (0.0-1.0); EOS % 0.5 % (0.0-3.0); LARGE UNSTAINED CELL # 0.2 K/mm3 (0.0-0.4); LARGE UNSTAINED CELL % 2.3 % (0.0-4.0); LYMPH % 10.1 % (24.0-44.0); MEAN CORPUSCULAR HEMOGLOBIN 30.4 pg (27.0-33.0); MEAN CORPUSCULAR HGB CONC 32.6 g/dl (32.0-36.5); MEAN CORPUSCULAR VOLUME 93.3 fl (80.0-96.0); MONO # 0.3 K/mm3 (0.0-0.8); MONO % 3.6 % (0.0-5.0); NEUTROPHILS # 7.8 K/mm3 (1.8-7.7); NEUTROPHILS % 83.3 % (36.0-66.0); PLATELET COUNT, AUTOMATED 250 k/mm3 (150-450); RED CELL DISTRIBUTION WIDTH 14.6 % (11.5-14.5); WHITE BLOOD COUNT 9.4 K/mm3 (4.0-10.0)
[2016-05-12 13:41] LABS: INR 2.71
--- NOTE | 2016-05-12 13:59 | REP ---
Clinical: Chest pain. Comparison: 04/13/2016. Findings: Cardiomegaly suggested. Diffuse chronic interstitial changes noted along with elevation of the left hemidiaphragm. Left basilar atelectasis identified. No obvious effusion or pneumothorax. Skeletal structures demonstrate degenerative changes to the thoracic spine and bilateral shoulders. Impression: Left lower lobe atelectasis. Signed by Hi Padron MD 05/12/2016 01:51 P
[2016-05-12 14:00] LABS: ANION GAP 16 MEQ/L (8-16); BLOOD UREA NITROGEN 32 MG/DL (7-18); CALCIUM LEVEL 10.1 MG/DL (8.8-10.2); CARBON DIOXIDE LEVEL 21 MEQ/L (21-32); CHLORIDE LEVEL 105 MEQ/L (98-107); CREATININE FOR GFR 0.83 MG/DL (0.55-1.02); GLOMERULAR FILTRATION RATE > 60.0 (>39); GLUCOSE, FASTING 175 MG/DL (83-110); POTASSIUM SERUM 3.6 MEQ/L (3.5-5.1); SODIUM LEVEL 142 MEQ/L (136-145)
[2016-05-12] MEDS ORDERED: GI COCKTAIL 50ML BTL(HYOSCYAMINE/MAALOX/LIDOCAINE VISCOUS)(1:3:1) As Ordered ONE (17:21)
[2016-05-12] MEDS ORDERED: KETOROLAC 30 MG/ML VIAL (J1885) As Ordered ONE (17:21)
--- NOTE | 2016-05-12 18:09 | EDDOCDS ---
Nurse's Notes [facility] Name: Laureen Bruce Age: 75 yrs Sex: Female : 1940 Arrival Date: 05/12/2016 Time: 12:48 Bed 14 Private MD: Tanika Diagnosis: Chest pain, unspecified Presentation: 05/12 12:55 Presenting complaint: Patient states: epigastric pain radiating to substernal began at jjr 0900 this morning also reports SOB. Aspirin was taken SAND DRIER. Adult Sepsis Screening: The patient does not have new or worsening altered mentation. Patient's respiratory rate is less than 22. Systolic blood pressure is greater than 100. Patient has a qSOFA score of 0- Negative Sepsis Screen. Suicide/Homicide risk assessment- the patient denies having any suicidal and/or homicidal ideations and does not present with any other emotional, behavioral or mental health complaints. Status: Patient is not a insurance service representative or dependent. Transition of care: patient was not received from another setting of care. 12:55 Acuity: [facility] 12:55 Method Of Arrival: Walkin/Carried[facility] Triage Assessment: 13:11 General: Appears uncomfortable, Behavior is appropriate for age. Pain: Location: j xyphoid area and mid-sternal area. Cardiovascular: Chest pain is described as Pain is 9 out of 10 on a pain scale. radiates Does not radiate. episodes are continuous began 4 hours prior to arrival is aggravated by activity. Historical: - Allergies: Heparin (Anaphylaxis); - Home Meds: 1. atorvastatin 40 mg oral tab 1 tab nightly 2. Chlorthalidone 12.5 mg Oral 1 tab every -- 3. Coumadin 4 mg Oral tab 1 tab once daily 4. metoprolol succinate 50 mg tab 1 tab once daily 5. Nexium 40 mg Oral cpDR 1 cap once daily 6. meclizine 25 mg oral cap as needed as needed 7. nitroglycerin 0.4 mg SL subl 1 tab every 5 minutes x 3 as needed 8. spironolactone 12.5mg Oral tab 1 tab once daily 9. tramadol 50 mg Oral tab 1 tab every 4-6 hours as needed (Last dose: 05/12/2016 12:20) 10. aspirin 81 mg Oral tab 1 tab once daily - PMHx: Diabetes - NIDDM: uncontrolled; DVT; GERD; Hypercholesterolemia; Hypertension; [place]; Hiatal Hernia; - PSHx: aortic valve replacement, porcine; CABG; Bilateral Hip Replacement; Cholecystectomy; - Social history: No barriers to communication noted, The patient speaks fluent Wolof, Smoking status: Patient states was never smoker of tobacco. - Family history: Not pertinent. - : The pt / caregiver states he / she is on anticoagulants: coumadin. Home medication list is obtained from [employer] import data. - Exposure Risk Screening:: None identified. Screenin:43 Screening information is obtained from the patient. Fall risk: At risk due to gait kc3 disturbance, The following interventions are performed due to a positive Fall Risk Screen: Fall Risk is added to Special Handling on the patient Summary Screen. A Fall Risk Bracelet was applied to the patient. Side Rails are placed in the up position. A Call Mercado is given with instruction to call for help when getting out of bed. Fall Alert bracelet is placed on the patient. Assistance ADL's: requires no assistance with activities of daily living. Abuse/DV Screen: The patient / caregiver reports he/she is: not in a situation that causes fear, pain or injury. Nutritional screening: No deficits noted. home support is adequate. 13:44 Advance Directives: Currently, there is no health care proxy. kc3 Assessment: 13:00 General: Appears in no apparent distress, comfortable, Behavior is appropriate for age, kc3 cooperative. Pain: Location: chest. Neurological: Level of Consciousness is awake, alert, obeys commands, Oriented to person, place, time. Cardiovascular: Rhythm is sinus rhythm Chest pain is described as Pain is 9 out of 10 on a pain scale. radiates Does not radiate. Respiratory: Respiratory effort is even, unlabored. Derm: Skin is pink, warm & dry. 14:10 General: Appears in no apparent distress, comfortable, Behavior is appropriate for age, kc3 cooperative. Pain: Location: chest. Neurological: Level of Consciousness is awake, alert, obeys commands, Oriented to person, place, time. Cardiovascular: Rhythm is sinus rhythm Chest pain is described as mild, radiates Does not radiate. Respiratory: Respiratory effort is even, unlabored. Derm: Skin is pink, warm & dry. 15:00 General: Appears in no apparent distress, comfortable, Behavior is appropriate for age, kc3 cooperative. Pain: Location: chest. Neurological: Level of Consciousness is awake, alert, obeys commands, Oriented to person, place, time. Cardiovascular: Rhythm is sinus rhythm Chest pain is described as mild, radiates Does not radiate. Respiratory: Respiratory effort is even, unlabored. Derm: Skin is pink, warm & dry. 15:44 General: Appears in no apparent distress, comfortable, Behavior is appropriate for age, kc3 cooperative. Pain: Location: chest. Neurological: Level of Consciousness is awake, alert, obeys commands. Cardiovascular: Rhythm is sinus rhythm Chest pain is described as mild, radiates Does not radiate. Respiratory: Respiratory effort is even, unlabored. Derm: Skin is pink, warm & dry. 16:30 General: Appears in no apparent distress, comfortable, Behavior is appropriate for age, kc3 cooperative, Pt resting on stretcher with no distress noted. Pt updated on plan of care. Will continue to monitor. Respirations even and unlabored. . 17:25 General: Pt c/o pain to epigastric area. Dr. Peguero made aware. Pt medicated per kc3 order. Will continue to monitor. No distress noted. Respirations even and unlabored. . 18:04 General: Appears in no apparent distress, comfortable, Behavior is appropriate for age, kc3 cooperative. Pain:. Pain: Location: chest. Neurological: Level of Consciousness is awake, alert, obeys commands, Oriented to person, place, time. Cardiovascular: Rhythm is sinus rhythm. Respiratory: Airway is patent Respiratory effort is even, unlabored. Derm: Skin is pink, warm & dry. Vital Signs: 12:50 BP 169 / 95; Pulse 116; Resp 20 S; Temp 95.8(O); Pulse Ox 97% on R/A; Weight 79.38 kg gr2 (R); Height 5 ft. 0 in. (152.40 cm) (R); Pain 9/10; 13:21 Pulse 106 MON; kc3 13:22 BP 160 / 74 (auto/); kc3 13:24 Pulse 108 MON; Pulse Ox 97% ; kc3 13:25 BP 143 / 64 (auto/); kc3 13:39 Pulse 98 MON; Pulse Ox 95% ; kc3 13:40 BP 141 / 78 (auto/); kc3 13:55 BP 129 / 60 (auto/); kc3 13:55 Pulse 96 MON; Pulse Ox 95% ; kc3 14:10 BP 127 / 63 (auto/); kc3 14:11 Pulse 94 MON; Pulse Ox 93% ; kc3 14:23 Pulse 96 MON; Pulse Ox 96% ; kc3 14:25 BP 126 / 61 (auto/); kc3 14:40 BP 124 / 57 (auto/); kc3 14:40 Pulse 92 MON; Pulse Ox 96% ; kc3 14:55 BP 122 / 58 (auto/); kc3 14:55 Pulse 92 MON; Pulse Ox 93% ; kc3 15:10 BP 121 / 61 (auto/); kc3 15:10 Pulse 90 MON; Pulse Ox 93% ; kc3 15:25 BP 122 / 61 (auto/); kc3 15:25 Pulse 92 MON; Pulse Ox 95% ; kc3 15:40 BP 131 / 68 (auto/); kc3 15:40 Pulse 92 MON; Pulse Ox 96% ; kc3 15:55 BP 115 / 55 (auto/); kc3 15:55 Pulse 88 MON; Pulse Ox 94% ; kc3 16:10 BP 122 / 59 (auto/); kc3 16:10 Pulse 88 MON; Pulse Ox 94% ; kc3 16:24 Pulse 88 MON; Pulse Ox 96% ; kc3 16:25 BP 123 / 61 (auto/); kc3 16:39 Pulse 88 MON; Pulse Ox 95% ; kc3 16:40 BP 119 / 56 (auto/); kc3 16:54 Pulse 86 MON; Pulse Ox 94% ; kc3 16:55 BP 118 / 59 (auto/); kc3 17:09 Pulse 88 MON; Pulse Ox 94% ; kc3 17:10 BP 124 / 57 (auto/); kc3 18:06 BP 141 / 72; Pulse 92; Resp 18; Temp 98.8(TE); Pulse Ox 95% on R/A; kc3 12:50 Body Mass Index 34.18 (79.38 kg, 152.40 cm) gr2 Vitals: 12:50 Log In Time: May 12, 2016 at 12:50. RN notified that patient meets Red Flag gr2 criteria. ED Course: 12:49 Patient visited by Nabor Son. gr2 12:49 Patient moved to Waiting gr2 12:50 [place] is Private Physician. gr2 12:51 Patient visited by Nabor Son. gr2 12:54 Patient moved to PR2 jjr 12:57 Triage Initiated jjr 13:00 EKG done. (by ED staff). Reviewed by Mary Peguero MD. rs6 13:03 Nina Thapa,RN is Primary Nurse. jjr 13:03 Patient moved to 14 jjr 13:11 Mary Peguero MD is Attending Physician. fg 13:27 Patient visited by Nina Thapa RN. kc3 13:27 Patient visited by Stephanie Roth,[place]. pml 13:27 Inserted peripheral IV: 18gauge IV in left antecubital area and blood collected. pml Patient tolerated the procedure well. 13:44 The patient / caregiver is instructed regarding the plan of care and ED course. Cardiac kc3 monitor on. Pulse ox on. NIBP on. 13:56 Patient visited by Mary Peguero MD. fg 14:27 portable chest Returned. EDMS 14:51 [facility] Payment Agreement was scanned into [employer] and attached to record. mm15 14:57 Patient visited by Anushka Erazo, MARY. ct3 15:29 Patient visited by Nina Thapa RN. kc3 15:46 Patient visited by Nina Thapa RN. kc3 16:16 Patient visited by Nina Thapa RN. kc3 16:52 Patient visited by Nina Thapa RN. kc3 17:34 Tanika is Referral Physician. fg 18:08 Discontinued IV lock intact, bleeding controlled, pressure dressing applied, No kc3 redness/swelling at site. No procedures done that require assistance. Administered Medications: 14:40 Drug: Aspirin 324 mg [aspirin 81 mg chewable tablet (4 tabs)] Route: PO; kc3 17:36 Not Given (Pt stated allergyy): ketorolac 30 mg IVP once kc3 17:36 Drug: GI Cocktail - (Alum-Mag Hydroxide-Simeth Suspension 225 mg-200 mg-25 mg/5 mL 30 kc3 ml, Lidocaine Liquid 2 % 10 ml, Hyoscyamine Liquid 10 ml) Route: PO; Order Results: Lab Order: B-Type Natiuretic Peptide; SPEC'M 05/12/16 13:26 Test: BRAIN NATRIURETIC PEPTIDE; Value: 104; Range: <100; Abnormal: Above high normal; Units: PG/ML; Status: F Lab Order: Basic Metabolic Profile; SPEC05/12/16 13:26 Test: GLUCOSE, FASTING; Value: 175; Range: 83-110; Abnormal: Above high normal; Units: MG/DL; Status: F Test: BLOOD UREA NITROGEN; Value: 32; Range: 7-18; Abnormal: Above high normal; Units: MG/DL; Status: F Test: CREATININE FOR GFR; Value: 0.83; Range: 0.55-1.02; Units: MG/DL; Status: F Test: GLOMERULAR FILTRATION RATE; Value: > 60.0; Range: >39; Status: F Test: SODIUM LEVEL; Value: 142; Range: 136-145; Units: MEQ/L; Status: F Test: POTASSIUM SERUM; Value: 3.6; Range: 3.5-5.1; Units: MEQ/L; Status: F Test: CHLORIDE LEVEL; Value: 105; Range: 98-107; Units: MEQ/L; Status: F Test: CARBON DIOXIDE LEVEL; Value: 21; Range: 21-32; Units: MEQ/L; Status: F Test: ANION GAP; Value: 16; Range: 8-16; Units: MEQ/L; Status: F Test: CALCIUM LEVEL; Value: 10.1; Range: 8.8-10.2; Units: MG/DL; Status: F Test Note: ; Units are mL/min/1.73 m2 Chronic Kidney Disease Staging per NKF: Stage I & II GFR >=60 Normal to Mildly Decreased Stage III GFR 30-59 Moderately Decreased Stage IV GFR 15-29 Severely Decreased Stage V GFR <15 Very Little GFR Left ESRD GFR <15 on PROGRAM DIR Lab Order: CBC with Diff; SPEC'05/12/16 13:26 Test: WHITE BLOOD COUNT; Value: 9.4; Range: 4.0-10.0; Units: K/mm3; Status: F Test: RED BLOOD COUNT; Value: 4.06; Range: 4.00-5.40; Units: M/mm3; Status: F Test: HEMOGLOBIN; Value: 12.4; Range: 12.0-16.0; Units: g/dl; Status: F Test: HEMATOCRIT; Value: 37.9; Range: 36.0-47.0; Units: %; Status: F Test: MEAN CORPUSCULAR VOLUME; Value: 93.3; Range: 80.0-96.0; Units: fl; Status: F Test: MEAN CORPUSCULAR HEMOGLOBIN; Value: 30.4; Range: 27.0-33.0; Units: pg; Status: F Test: MEAN CORPUSCULAR HGB CONC; Value: 32.6; Range: 32.0-36.5; Units: g/dl; Status: F Test: RED CELL DISTRIBUTION WIDTH; Value: 14.6; Range: 11.5-14.5; Abnormal: Above high normal; Units: %; Status: F Test: PLATELET COUNT, AUTOMATED; Value: 250; Range: 150-450; Units: k/mm3; Status: F Test: NEUTROPHILS %; Value: 83.3; Range: 36.0-66.0; Abnormal: Above high normal; Units: %; Status: F Test: LYMPH %; Value: 10.1; Range: 24.0-44.0; Abnormal: Below low normal; Units: %; Status: F Test: MONO %; Value: 3.6; Range: 0.0-5.0; Units: %; Status: F Test: EOS %; Value: 0.5; Range: 0.0-3.0; Units: %; Status: F Test: BASO %; Value: 0.2; Range: 0.0-1.0; Units: %; Status: F Test: LARGE UNSTAINED CELL %; Value: 2.3; Range: 0.0-4.0; Units: %; Status: F Test: NEUTROPHILS #; Value: 7.8; Range: 1.8-7.7; Abnormal: Above high normal; Units: K/mm3; Status: F Test: LYMPH #; Value: 1.0; Range: 1.5-4.5; Abnormal: Below low normal; Units: K/mm3; Status: F Test: MONO #; Value: 0.3; Range: 0.0-0.8; Units: K/mm3; Status: F Test: EOS #; Value: 0.0; Range: 0.0-0.50; Units: K/mm3; Status: F Test: BASO #; Value: 0.0; Range: 0.0-0.2; Units: K/mm3; Status: F Test: LARGE UNSTAINED CELL #; Value: 0.2; Range: 0.0-0.4; Units: K/mm3; Status: F Lab Order: Cardiac Injury Profile; [facility] 05/12/16 13:26 Test: CPK CREATINE PHOSPHOKINASE; Value: 41; Range: 26-192; Units: U/L; Status: F Test: CK-MB VALUE MASS; Value: 1.0; Range: 0.0-3.6; Units: NG/ML; Status: F Test: MB/CK RELATIVE INDEX; Value: 2.43; Range: < OR =4; Status: F Test Note: ; DIAGNOSIS CRITERIA MMB ng/ml Relative Index (RI) NON-AMI < or = 5 N/A FRANZ ZONE > 5 < or = 4 AMI > 5 > 4 Lab Order: Prothrombin Time Profile\E\INR; [facility] 05/12/16 13:26 Test: PROTHROMBIN TIME; Value: 28.8; Range: 12.3-14.5; Abnormal: Above high normal; Units: SECONDS; Status: F Test: INR; Value: 2.71; Status: F Test Note: ; THERAPUTIC HUMAN INR VALUES INDICATIONS NORMAL RANGES PROPHYLAXIS/TREATMENT OF: VENOUS THROMBOSIS 2.0-3.0 PULMONARY EMBOLISM 2.0-3.0 PREVENTION OF SYSTEMIC EMBOLISM FROM: TISSUE HEART VALVES 2.0-3.0 ACUTE MYOCARDIAL INFARCTION 2.0-3.0 VALVULAR HEART DISEASE 2.0-3.0 ATRIAL FIBRILLATION 2.0-3.0 MECHANICAL VALVES(HIGH RISK) 2.5-3.5 RECURRENT MYOCARDIAL INFARCTION 2.5-3.5 Lab Order: Troponin; [facility] 05/12/16 13:26 Test: TROPONIN I; Value: < 0.02; Range: < 0.10; Units: NG/ML; Status: F Test Note: ; Troponin I Reference Interval for [employer] LOCI: 99th Percentile= 0.00-0.045 ng/ml Risk Stratification: <= 0.10 ng/ml Decreased Risk for Adverse Clinical Events. 0.10-1.50 ng/ml Increased Risk for Adverse Clinical Events. Evaluation of additional criterion and/or repeat testing in 2-6 hours is suggested to rule out myocardial damage. >= 1.50 ng/ml Indicative of Myocardial Injury. Lab Order: Troponin; SPEC'M 05/12/16 16:30 Test: TROPONIN I; Value: < 0.02; Range: < 0.10; Units: NG/ML; Status: F Test Note: ; Troponin I Reference Interval for [employer] LOCI: 99th Percentile= 0.00-0.045 ng/ml Risk Stratification: <= 0.10 ng/ml Decreased Risk for Adverse Clinical Events. 0.10-1.50 ng/ml Increased Risk for Adverse Clinical Events. Evaluation of additional criterion and/or repeat testing in 2-6 hours is suggested to rule out myocardial damage. >= 1.50 ng/ml Indicative of Myocardial Injury. Lab Order: Cardiac Injury Profile; SPEC'M 05/12/16 16:30 Test: CPK CREATINE PHOSPHOKINASE; Value: 35; Range: 26-192; Units: U/L; Status: F Test: CK-MB VALUE MASS; Value: 1.0; Range: 0.0-3.6; Units: NG/ML; Status: F Test: MB/CK RELATIVE INDEX; Value: 2.85; Range: < OR =4; Status: F Test Note: ; DIAGNOSIS CRITERIA MMB ng/ml Relative Index (RI) NON-AMI < or = 5 N/A FRANZ ZONE > 5 < or = 4 AMI > 5 > 4 Radiology Order: portable chest Test: portable chest REASON FOR EXAMINATION: Chest Pain; Clinical: Chest pain.; ; Comparison: 04/13/2016.; ; Findings:; Cardiomegaly suggested. Diffuse chronic interstitial changes noted along with; elevation of the left hemidiaphragm. Left basilar atelectasis identified. No; obvious effusion or pneumothorax. Skeletal structures demonstrate degenerative; changes to the thoracic spine and bilateral shoulders.; ; Impression:; Left lower lobe atelectasis.; ; ; Signed by; Hi Padron MD 05/12/2016 01:51 P; Outcome: 17:34 Discharge ordered by Provider. fg 18:07 Discharge Assessment: Patient awake, alert and oriented x 3. No cognitive and/or kc3 functional deficits noted. Patient verbalized understanding of disposition instructions. patient administered narcotics - no. The following High Risk Discharge criteria are identified: None. Discharged to home via wheelchair. Condition: stable. Discharge instructions given to patient, Instructed on discharge instructions, follow up and referral plans. Demonstrated understanding of instructions, Pt was receptive of discharge instructions/ teaching. No special radiology studies were completed. Property :Personal belongings accompany Pt. 18:08 Patient left the ED. kc3 Signatures: Dispatcher [employer] EDMS Betty Son RN RN jjr Taveras, Consuelo, MOTOR ROUTE CARRIER MOTOR ROUTE CARRIER ct3 Stephanie Roth RN RN pml Raymond, Gainslee gr2 Travon Loving mm15 Mary Fay, MOTOR ROUTE CARRIER MOTOR ROUTE CARRIER rs6 Mary Peguero MD MD fg Crane, Kelsi, RN RN kc3 Corrections: (The following items were deleted from the chart) 15:41 13:00 Cardiovascular: Rhythm is sinus rhythm kc3 kc3 18:05 16:30 General: Appears in no apparent distress, comfortable, Behavior is appropriate kc3 for age, cooperative, . kc3 18:06 16:30 General: Appears in no apparent distress, comfortable, Behavior is appropriate kc3 for age, cooperative, . kc3 MTDD
--- NOTE | 2016-05-12 18:09 | EDDOCDS ---
Physician Documentation [facility] Name: Laureen Bruce Age: 75 yrs Sex: Female : 1940 Arrival Date: 05/12/2016 Time: 12:48 Bed 14 Private MD: Tanika Disposition: 05/12/16 17:34 Discharged to Home/Self Care. Impression: Chest pain, unspecified. - Condition is Stable. - Discharge Instructions: Nonspecific Chest Pain. - Medication Reconciliation, Local Pharmacy Hours form. - Follow up: Tanika; When: Call to arrange an appointment; Reason: Continuance of care. - Problem is new. - Symptoms have improved. Historical: - Allergies: Heparin (Anaphylaxis); - Home Meds: 1. atorvastatin 40 mg oral tab 1 tab nightly 2. Chlorthalidone 12.5 mg Oral 1 tab every -- 3. Coumadin 4 mg Oral tab 1 tab once daily 4. metoprolol succinate 50 mg tab 1 tab once daily 5. Nexium 40 mg Oral cpDR 1 cap once daily 6. meclizine 25 mg oral cap as needed as needed 7. nitroglycerin 0.4 mg SL subl 1 tab every 5 minutes x 3 as needed 8. spironolactone 12.5mg Oral tab 1 tab once daily 9. tramadol 50 mg Oral tab 1 tab every 4-6 hours as needed (Last dose: 05/12/2016 12:20) 10. aspirin 81 mg Oral tab 1 tab once daily - PMHx: Diabetes - NIDDM: uncontrolled; DVT; GERD; Hypercholesterolemia; Hypertension; [place]; Hiatal Hernia; - PSHx: aortic valve replacement, porcine; CABG; Bilateral Hip Replacement; Cholecystectomy; - Social history: No barriers to communication noted, The patient speaks fluent Libyan, Smoking status: Patient states was never smoker of tobacco. - Family history: Not pertinent. - : The pt / caregiver states he / she is on anticoagulants: coumadin. Home medication list is obtained from [employer] import data. - Exposure Risk Screening:: None identified. Vital Signs: 05/12 12:50 BP 169 / 95; Pulse 116; Resp 20 S; Temp 95.8(O); Pulse Ox 97% on R/A; Weight 79.38 kg / gr2 175 lbs (R); Height 5 ft. 0 in. (152.40 cm) (R); Pain 9/10; 13:21 Pulse 106 MON; kc3 13:22 BP 160 / 74 (auto/); kc3 13:24 Pulse 108 MON; Pulse Ox 97% ; kc3 13:25 BP 143 / 64 (auto/); kc3 13:39 Pulse 98 MON; Pulse Ox 95% ; kc3 13:40 BP 141 / 78 (auto/); kc3 13:55 BP 129 / 60 (auto/); kc3 13:55 Pulse 96 MON; Pulse Ox 95% ; kc3 14:10 BP 127 / 63 (auto/); kc3 14:11 Pulse 94 MON; Pulse Ox 93% ; kc3 14:23 Pulse 96 MON; Pulse Ox 96% ; kc3 14:25 BP 126 / 61 (auto/); kc3 14:40 BP 124 / 57 (auto/); kc3 14:40 Pulse 92 MON; Pulse Ox 96% ; kc3 14:55 BP 122 / 58 (auto/); kc3 14:55 Pulse 92 MON; Pulse Ox 93% ; kc3 15:10 BP 121 / 61 (auto/); kc3 15:10 Pulse 90 MON; Pulse Ox 93% ; kc3 15:25 BP 122 / 61 (auto/); kc3 15:25 Pulse 92 MON; Pulse Ox 95% ; kc3 15:40 BP 131 / 68 (auto/); kc3 15:40 Pulse 92 MON; Pulse Ox 96% ; kc3 15:55 BP 115 / 55 (auto/); kc3 15:55 Pulse 88 MON; Pulse Ox 94% ; kc3 16:10 BP 122 / 59 (auto/); kc3 16:10 Pulse 88 MON; Pulse Ox 94% ; kc3 16:24 Pulse 88 MON; Pulse Ox 96% ; kc3 16:25 BP 123 / 61 (auto/); kc3 16:39 Pulse 88 MON; Pulse Ox 95% ; kc3 16:40 BP 119 / 56 (auto/); kc3 16:54 Pulse 86 MON; Pulse Ox 94% ; kc3 16:55 BP 118 / 59 (auto/); kc3 17:09 Pulse 88 MON; Pulse Ox 94% ; kc3 17:10 BP 124 / 57 (auto/); kc3 18:06 BP 141 / 72; Pulse 92; Resp 18; Temp 98.8(TE); Pulse Ox 95% on R/A; kc3 12:50 Body Mass Index 34.18 (79.38 kg, 152.40 cm) gr2 MDM: 12:56 ECG WITH READING ER PHYS+CARDIAG ordered. EDMS 13:12 Aspirin Chewable Tablet 324 mg PO once ordered. fg 13:12 Systems Analysis Manager/Pulse Ox/q 30 min VS ordered. fg 13:12 IV Saline Lock ordered. fg 13:12 Rhythm Strip to chart ordered. fg 13:12 Undress patient appropriately for examination ordered. fg 13:13 portable chest Ordered. EDMS 13:13 B-Type Natiuretic Peptide Ordered. EDMS 13:13 Basic Metabolic Profile Ordered. EDMS 13:13 CBC with Diff Ordered. EDMS 13:13 Cardiac Injury Profile Ordered. EDMS 13:13 Prothrombin Time Profile\E\INR Ordered. EDMS 13:13 Troponin Ordered. EDMS 14:50 Financial registration complete. mm15 14:51 [facility] Payment Agreement was scanned into [employer] and attached to record. mm15 16:27 Troponin Ordered. EDMS 16:27 Cardiac Injury Profile Ordered. EDMS 17:11 ketorolac 30 mg IVP once ordered. fg 17:11 GI Cocktail - (Alum-Mag Hydroxide-Simeth 30 ml, Lidocaine 10 ml, Hyoscyamine 10 ml) PO fg once; Pre-mixed 50mL unit dose ordered. Administered Medications: 14:40 Drug: Aspirin 324 mg [aspirin 81 mg chewable tablet (4 tabs)] Route: PO; kc3 17:36 Not Given (Pt stated allergyy): ketorolac 30 mg IVP once kc3 17:36 Drug: GI Cocktail - (Alum-Mag Hydroxide-Simeth Suspension 225 mg-200 mg-25 mg/5 mL 30 kc3 ml, Lidocaine Liquid 2 % 10 ml, Hyoscyamine Liquid 10 ml) Route: PO; Signatures: Dispatcher [employer] EDMS Betty Son RN RN Travon Simon mm15 Mary Peguero MD MD fg Crane, Kelsi, RN RN kc3 The chart was reviewed and I authenticate all verbal orders and agree with the evaluation and treatment provided.Attachments: 14:51 [facility] Payment Agreement mm15 MTDD
--- NOTE | 2016-05-14 08:23 | ECGEPIP ---
Stationary ECG Study [facility] - ED Test Date: 2016-05-12 Pat Name: LAURA BRIDGES Department: Room: - Gender: F Iron Pourer: roney : 1940 Requested By: PEBBLES Tello Order Number: [id number] Reading MD: Rudy Aguero Measurements Intervals [place] Rate: 109 P: LA: 0 QRS: -19 QRSD: 93 T: 17 QT: 336 QTc: 453 Interpretive Statements SINUS TACHYCARDIA WITH FIRST DEGREE AV BLOCK AND VENTRICULAR PREMATURE COMPLEXES LAE VOLTAGE CRITERIA FOR LVH INFERIOR MYOCARDIAL INFARCTION, PROBABLY OLD SIMILAR TO 04/13/16 Electronically Signed On 05-14-2016 8:23:12 EST by Rudy Aguero
--- NOTE | 2016-05-14 19:09 | EDDOCDS ---
Physician Documentation [facility] Name: Laureen Bruce Age: 75 yrs Sex: Female : 1940 Arrival Date: 05/12/2016 Time: 12:48 Bed 14 Private MD: Tanika Disposition: 05/12/16 17:34 Discharged to Home/Self Care. Impression: Chest pain, unspecified. - Condition is Stable. - Discharge Instructions: Nonspecific Chest Pain. - Medication Reconciliation, Local Pharmacy Hours form. - Follow up: Tanika; When: Call to arrange an appointment; Reason: Continuance of care. - Problem is new. - Symptoms have improved. Historical: - Allergies: Heparin (Anaphylaxis); - Home Meds: 1. atorvastatin 40 mg oral tab 1 tab nightly 2. Chlorthalidone 12.5 mg Oral 1 tab every -- 3. Coumadin 4 mg Oral tab 1 tab once daily 4. metoprolol succinate 50 mg tab 1 tab once daily 5. Nexium 40 mg Oral cpDR 1 cap once daily 6. meclizine 25 mg oral cap as needed as needed 7. nitroglycerin 0.4 mg SL subl 1 tab every 5 minutes x 3 as needed 8. spironolactone 12.5mg Oral tab 1 tab once daily 9. tramadol 50 mg Oral tab 1 tab every 4-6 hours as needed (Last dose: 05/12/2016 12:20) 10. aspirin 81 mg Oral tab 1 tab once daily - PMHx: Diabetes - NIDDM: uncontrolled; DVT; GERD; Hypercholesterolemia; Hypertension; AK; Hiatal Hernia; - PSHx: aortic valve replacement, porcine; CABG; Bilateral Hip Replacement; Cholecystectomy; - Social history: No barriers to communication noted, The patient speaks fluent [place], Smoking status: Patient states was never smoker of tobacco. - Family history: Not pertinent. - : The pt / caregiver states he / she is on anticoagulants: coumadin. Home medication list is obtained from [employer] import data. - Exposure Risk Screening:: None identified. Vital Signs: 05/12 12:50 BP 169 / 95; Pulse 116; Resp 20 S; Temp 95.8(O); Pulse Ox 97% on R/A; Weight 79.38 kg / gr2 175 lbs (R); Height 5 ft. 0 in. (152.40 cm) (R); Pain 9/10; 13:21 Pulse 106 MON; kc3 13:22 BP 160 / 74 (auto/); kc3 13:24 Pulse 108 MON; Pulse Ox 97% ; kc3 13:25 BP 143 / 64 (auto/); kc3 13:39 Pulse 98 MON; Pulse Ox 95% ; kc3 13:40 BP 141 / 78 (auto/); kc3 13:55 BP 129 / 60 (auto/); kc3 13:55 Pulse 96 MON; Pulse Ox 95% ; kc3 14:10 BP 127 / 63 (auto/); kc3 14:11 Pulse 94 MON; Pulse Ox 93% ; kc3 14:23 Pulse 96 MON; Pulse Ox 96% ; kc3 14:25 BP 126 / 61 (auto/); kc3 14:40 BP 124 / 57 (auto/); kc3 14:40 Pulse 92 MON; Pulse Ox 96% ; kc3 14:55 BP 122 / 58 (auto/); kc3 14:55 Pulse 92 MON; Pulse Ox 93% ; kc3 15:10 BP 121 / 61 (auto/); kc3 15:10 Pulse 90 MON; Pulse Ox 93% ; kc3 15:25 BP 122 / 61 (auto/); kc3 15:25 Pulse 92 MON; Pulse Ox 95% ; kc3 15:40 BP 131 / 68 (auto/); kc3 15:40 Pulse 92 MON; Pulse Ox 96% ; kc3 15:55 BP 115 / 55 (auto/); kc3 15:55 Pulse 88 MON; Pulse Ox 94% ; kc3 16:10 BP 122 / 59 (auto/); kc3 16:10 Pulse 88 MON; Pulse Ox 94% ; kc3 16:24 Pulse 88 MON; Pulse Ox 96% ; kc3 16:25 BP 123 / 61 (auto/); kc3 16:39 Pulse 88 MON; Pulse Ox 95% ; kc3 16:40 BP 119 / 56 (auto/); kc3 16:54 Pulse 86 MON; Pulse Ox 94% ; kc3 16:55 BP 118 / 59 (auto/); kc3 17:09 Pulse 88 MON; Pulse Ox 94% ; kc3 17:10 BP 124 / 57 (auto/); kc3 18:06 BP 141 / 72; Pulse 92; Resp 18; Temp 98.8(TE); Pulse Ox 95% on R/A; kc3 12:50 Body Mass Index 34.18 (79.38 kg, 152.40 cm) gr2 MDM: 12:56 ECG WITH READING ER PHYS+CARDIAG ordered. EDMS 13:12 Aspirin Chewable Tablet 324 mg PO once ordered. fg 13:12 Senior Sql Developer/Pulse Ox/q 30 min VS ordered. fg 13:12 IV Saline Lock ordered. fg 13:12 Rhythm Strip to chart ordered. fg 13:12 Undress patient appropriately for examination ordered. fg 13:13 portable chest Ordered. EDMS 13:13 B-Type Natiuretic Peptide Ordered. EDMS 13:13 Basic Metabolic Profile Ordered. EDMS 13:13 CBC with Diff Ordered. EDMS 13:13 Cardiac Injury Profile Ordered. EDMS 13:13 Prothrombin Time Profile\E\INR Ordered. EDMS 13:13 Troponin Ordered. EDMS 14:50 Financial registration complete. mm15 14:51 [facility] Payment Agreement was scanned into [employer] and attached to record. mm15 16:27 Troponin Ordered. EDMS 16:27 Cardiac Injury Profile Ordered. EDMS 17:11 ketorolac 30 mg IVP once ordered. fg 17:11 GI Cocktail - (Alum-Mag Hydroxide-Simeth 30 ml, Lidocaine 10 ml, Hyoscyamine 10 ml) PO fg once; Pre-mixed 50mL unit dose ordered. 05/13 11:21 T-Sheet-- Draft Copy was scanned into [employer] and attached to record. gb 11:21 ECG/EKG was scanned into [employer] and attached to record. gb Administered Medications: 05/12 14:40 Drug: Aspirin 324 mg [aspirin 81 mg chewable tablet (4 tabs)] Route: PO; kc3 17:36 Not Given (Pt stated allergyy): ketorolac 30 mg IVP once kc3 17:36 Drug: GI Cocktail - (Alum-Mag Hydroxide-Simeth Suspension 225 mg-200 mg-25 mg/5 mL 30 kc3 ml, Lidocaine Liquid 2 % 10 ml, Hyoscyamine Liquid 10 ml) Route: PO; Signatures: Dispatcher [employer] EDMS Claudette Liang, Reg Reg gb Betty Son, DEN RN Travon Simon mm15 Peguero, Mary, MD MD fg Thapa,Nina,RN RN kc3 The chart was reviewed and I authenticate all verbal orders and agree with the evaluation and treatment provided.Attachments: 14:51 [facility] Payment Agreement mm15 05/13 11:21 T-Sheet-- Draft Copy gb 11:21 ECG/EKG gb Chart Complete MTDD
--- NOTE | 2016-05-14 19:09 | EDDOCDS ---
Nurse's Notes [facility] Name: Laureen Bruce Age: 75 yrs Sex: Female : 1940 Arrival Date: 05/12/2016 Time: 12:48 Bed 14 Private MD: Tanika Diagnosis: Chest pain, unspecified Presentation: 05/12 12:55 Presenting complaint: Patient states: epigastric pain radiating to substernal began at jjr 0900 this morning also reports SOB. 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 Adult Sepsis Screening: The patient does not have new or worsening altered mentation. Patient's respiratory rate is less than 22. Systolic blood pressure is greater than 100. Patient has a qSOFA score of 0- Negative Sepsis Screen. Suicide/Homicide risk assessment- the patient denies having any suicidal and/or homicidal ideations and does not present with any other emotional, behavioral or mental health complaints. Status: Patient is not a service counselor or dependent. Transition of care: patient was not received from another setting of care. 12:55 Acuity: FRANKY Level 3 [facility] 12:55 Method Of Arrival: Walkin/Carried/Asstd [facility] Triage Assessment: 13:11 General: Appears uncomfortable, Behavior is appropriate for age. Pain: Location: j xyphoid area and mid-sternal area. Cardiovascular: Chest pain is described as Pain is 9 out of 10 on a pain scale. radiates Does not radiate. episodes are continuous began 4 hours prior to arrival is aggravated by activity. Historical: - Allergies: Heparin (Anaphylaxis); - Home Meds: 1. atorvastatin 40 mg oral tab 1 tab nightly 2. Chlorthalidone 12.5 mg Oral 1 tab every -- 3. Coumadin 4 mg Oral tab 1 tab once daily 4. metoprolol succinate 50 mg tab 1 tab once daily 5. Nexium 40 mg Oral cpDR 1 cap once daily 6. meclizine 25 mg oral cap as needed as needed 7. nitroglycerin 0.4 mg SL subl 1 tab every 5 minutes x 3 as needed 8. spironolactone 12.5mg Oral tab 1 tab once daily 9. tramadol 50 mg Oral tab 1 tab every 4-6 hours as needed (Last dose: 05/12/2016 12:20) 10. aspirin 81 mg Oral tab 1 tab once daily - PMHx: Diabetes - NIDDM: uncontrolled; DVT; GERD; Hypercholesterolemia; Hypertension; [place]; Hiatal Hernia; - PSHx: aortic valve replacement, porcine; CABG; Bilateral Hip Replacement; Cholecystectomy; - Social history: No barriers to communication noted, The patient speaks fluent Malay, Smoking status: Patient states was never smoker of tobacco. - Family history: Not pertinent. - : The pt / caregiver states he / she is on anticoagulants: coumadin. Home medication list is obtained from [employer] import data. - Exposure Risk Screening:: None identified. Screenin:43 Screening information is obtained from the patient. Fall risk: At risk due to gait kc3 disturbance, The following interventions are performed due to a positive Fall Risk Screen: Fall Risk is added to Special Handling on the patient Summary Screen. A Fall Risk Bracelet was applied to the patient. Side Rails are placed in the up position. A Call Mercado is given with instruction to call for help when getting out of bed. Fall Alert bracelet is placed on the patient. Assistance ADL's: requires no assistance with activities of daily living. Abuse/DV Screen: The patient / caregiver reports he/she is: not in a situation that causes fear, pain or injury. Nutritional screening: No deficits noted. home support is adequate. 13:44 Advance Directives: Currently, there is no health care proxy. kc3 Assessment: 13:00 General: Appears in no apparent distress, comfortable, Behavior is appropriate for age, kc3 cooperative. Pain: Location: chest. Neurological: Level of Consciousness is awake, alert, obeys commands, Oriented to person, place, time. Cardiovascular: Rhythm is sinus rhythm Chest pain is described as Pain is 9 out of 10 on a pain scale. radiates Does not radiate. Respiratory: Respiratory effort is even, unlabored. Derm: Skin is pink, warm & dry. 14:10 General: Appears in no apparent distress, comfortable, Behavior is appropriate for age, kc3 cooperative. Pain: Location: chest. Neurological: Level of Consciousness is awake, alert, obeys commands, Oriented to person, place, time. Cardiovascular: Rhythm is sinus rhythm Chest pain is described as mild, radiates Does not radiate. Respiratory: Respiratory effort is even, unlabored. Derm: Skin is pink, warm & dry. 15:00 General: Appears in no apparent distress, comfortable, Behavior is appropriate for age, kc3 cooperative. Pain: Location: chest. Neurological: Level of Consciousness is awake, alert, obeys commands, Oriented to person, place, time. Cardiovascular: Rhythm is sinus rhythm Chest pain is described as mild, radiates Does not radiate. Respiratory: Respiratory effort is even, unlabored. Derm: Skin is pink, warm & dry. 15:44 General: Appears in no apparent distress, comfortable, Behavior is appropriate for age, kc3 cooperative. Pain: Location: chest. Neurological: Level of Consciousness is awake, alert, obeys commands. Cardiovascular: Rhythm is sinus rhythm Chest pain is described as mild, radiates Does not radiate. Respiratory: Respiratory effort is even, unlabored. Derm: Skin is pink, warm & dry. 16:30 General: Appears in no apparent distress, comfortable, Behavior is appropriate for age, kc3 cooperative, Pt resting on stretcher with no distress noted. Pt updated on plan of care. Will continue to monitor. Respirations even and unlabored. . 17:25 General: Pt c/o pain to epigastric area. Dr. Peguero made aware. Pt medicated per kc3 order. Will continue to monitor. No distress noted. Respirations even and unlabored. . 18:04 General: Appears in no apparent distress, comfortable, Behavior is appropriate for age, kc3 cooperative. Pain:. Pain: Location: chest. Neurological: Level of Consciousness is awake, alert, obeys commands, Oriented to person, place, time. Cardiovascular: Rhythm is sinus rhythm. Respiratory: Airway is patent Respiratory effort is even, unlabored. Derm: Skin is pink, warm & dry. Vital Signs: 12:50 BP 169 / 95; Pulse 116; Resp 20 S; Temp 95.8(O); Pulse Ox 97% on R/A; Weight 79.38 kg gr2 (R); Height 5 ft. 0 in. (152.40 cm) (R); Pain 9/10; 13:21 Pulse 106 MON; kc3 13:22 BP 160 / 74 (auto/); kc3 13:24 Pulse 108 MON; Pulse Ox 97% ; kc3 13:25 BP 143 / 64 (auto/); kc3 13:39 Pulse 98 MON; Pulse Ox 95% ; kc3 13:40 BP 141 / 78 (auto/); kc3 13:55 BP 129 / 60 (auto/); kc3 13:55 Pulse 96 MON; Pulse Ox 95% ; kc3 14:10 BP 127 / 63 (auto/); kc3 14:11 Pulse 94 MON; Pulse Ox 93% ; kc3 14:23 Pulse 96 MON; Pulse Ox 96% ; kc3 14:25 BP 126 / 61 (auto/); kc3 14:40 BP 124 / 57 (auto/); kc3 14:40 Pulse 92 MON; Pulse Ox 96% ; kc3 14:55 BP 122 / 58 (auto/); kc3 14:55 Pulse 92 MON; Pulse Ox 93% ; kc3 15:10 BP 121 / 61 (auto/); kc3 15:10 Pulse 90 MON; Pulse Ox 93% ; kc3 15:25 BP 122 / 61 (auto/); kc3 15:25 Pulse 92 MON; Pulse Ox 95% ; kc3 15:40 BP 131 / 68 (auto/); kc3 15:40 Pulse 92 MON; Pulse Ox 96% ; kc3 15:55 BP 115 / 55 (auto/); kc3 15:55 Pulse 88 MON; Pulse Ox 94% ; kc3 16:10 BP 122 / 59 (auto/); kc3 16:10 Pulse 88 MON; Pulse Ox 94% ; kc3 16:24 Pulse 88 MON; Pulse Ox 96% ; kc3 16:25 BP 123 / 61 (auto/); kc3 16:39 Pulse 88 MON; Pulse Ox 95% ; kc3 16:40 BP 119 / 56 (auto/); kc3 16:54 Pulse 86 MON; Pulse Ox 94% ; kc3 16:55 BP 118 / 59 (auto/); kc3 17:09 Pulse 88 MON; Pulse Ox 94% ; kc3 17:10 BP 124 / 57 (auto/); kc3 18:06 BP 141 / 72; Pulse 92; Resp 18; Temp 98.8(TE); Pulse Ox 95% on R/A; kc3 12:50 Body Mass Index 34.18 (79.38 kg, 152.40 cm) gr2 Vitals: 12:50 Log In Time: May 12, 2016 at 12:50. RN notified that patient meets Red Flag gr2 criteria. ED Course: 12:49 Patient visited by Nabor Son. gr2 12:49 Patient moved to Waiting gr2 12:50 Stella is Private Physician. gr2 12:51 Patient visited by Nabor Son. gr2 12:54 Patient moved to PR2 / jjr 12:57 Triage Initiated jjr 13:00 EKG done. (by ED staff). Reviewed by Mary Peguero MD. rs6 13:03 Nina Thapa,RN is Primary Nurse. jjr 13:03 Patient moved to 14 jjr 13:11 Mary Peguero MD is Attending Physician. fg 13:27 Patient visited by Nina Thapa,DEN. kc3 13:27 Patient visited by Stephanie Roth,DEN. pml 13:27 Inserted peripheral IV: 18gauge IV in left antecubital area and blood collected. pml Patient tolerated the procedure well. 13:44 The patient / caregiver is instructed regarding the plan of care and ED course. Cardiac kc3 monitor on. Pulse ox on. NIBP on. 13:56 Patient visited by Mary Peguero MD. fg 14:27 portable chest Returned. EDMS 14:51 [facility] Payment Agreement was scanned into [employer] and attached to record. mm15 14:57 Patient visited by Anushka Erazo, MARY. ct3 15:29 Patient visited by Nina Thapa RN. kc3 15:46 Patient visited by Nina Thapa RN. kc3 16:16 Patient visited by Nina Thapa,DEN. kc3 16:52 Patient visited by Nina Thapa,DEN. kc3 17:34 Tanika is Referral Physician. fg 18:08 Discontinued IV lock intact, bleeding controlled, pressure dressing applied, No kc3 redness/swelling at site. No procedures done that require assistance. 05/13 11:21 T-Sheet-- Draft Copy was scanned into [employer] and attached to record. gb 11:21 ECG/EKG was scanned into [employer] and attached to record. gb 05/14 08:38 EKG-ADULT Returned. EDMS Administered Medications: 05/12 14:40 Drug: Aspirin 324 mg [aspirin 81 mg chewable tablet (4 tabs)] Route: PO; kc3 17:36 Not Given (Pt stated allergyy): ketorolac 30 mg IVP once kc3 17:36 Drug: GI Cocktail - (Alum-Mag Hydroxide-Simeth Suspension 225 mg-200 mg-25 mg/5 mL 30 kc3 ml, Lidocaine Liquid 2 % 10 ml, Hyoscyamine Liquid 10 ml) Route: PO; Order Results: Lab Order: B-Type Natiuretic Peptide; SPEC'M 05/12/16 13:26 Test: BRAIN NATRIURETIC PEPTIDE; Value: 104; Range: <100; Abnormal: Above high normal; Units: PG/ML; Status: F Lab Order: Basic Metabolic Profile; SPEC'05/12/16 13:26 Test: GLUCOSE, FASTING; Value: 175; Range: 83-110; Abnormal: Above high normal; Units: MG/DL; Status: F Test: BLOOD UREA NITROGEN; Value: 32; Range: 7-18; Abnormal: Above high normal; Units: MG/DL; Status: F Test: CREATININE FOR GFR; Value: 0.83; Range: 0.55-1.02; Units: MG/DL; Status: F Test: GLOMERULAR FILTRATION RATE; Value: > 60.0; Range: >39; Status: F Test: SODIUM LEVEL; Value: 142; Range: 136-145; Units: MEQ/L; Status: F Test: POTASSIUM SERUM; Value: 3.6; Range: 3.5-5.1; Units: MEQ/L; Status: F Test: CHLORIDE LEVEL; Value: 105; Range: 98-107; Units: MEQ/L; Status: F Test: CARBON DIOXIDE LEVEL; Value: 21; Range: 21-32; Units: MEQ/L; Status: F Test: ANION GAP; Value: 16; Range: 8-16; Units: MEQ/L; Status: F Test: CALCIUM LEVEL; Value: 10.1; Range: 8.8-10.2; Units: MG/DL; Status: F Test Note: ; Units are mL/min/1.73 m2 Chronic Kidney Disease Staging per NKF: Stage I & II GFR >=60 Normal to Mildly Decreased Stage III GFR 30-59 Moderately Decreased Stage IV GFR 15-29 Severely Decreased Stage V GFR <15 Very Little GFR Left ESRD GFR <15 on POST OFFICE CLERK Lab Order: CBC with Diff; SPEC'M 05/12/16 13:26 Test: WHITE BLOOD COUNT; Value: 9.4; Range: 4.0-10.0; Units: K/mm3; Status: F Test: RED BLOOD COUNT; Value: 4.06; Range: 4.00-5.40; Units: M/mm3; Status: F Test: HEMOGLOBIN; Value: 12.4; Range: 12.0-16.0; Units: g/dl; Status: F Test: HEMATOCRIT; Value: 37.9; Range: 36.0-47.0; Units: %; Status: F Test: MEAN CORPUSCULAR VOLUME; Value: 93.3; Range: 80.0-96.0; Units: fl; Status: F Test: MEAN CORPUSCULAR HEMOGLOBIN; Value: 30.4; Range: 27.0-33.0; Units: pg; Status: F Test: MEAN CORPUSCULAR HGB CONC; Value: 32.6; Range: 32.0-36.5; Units: g/dl; Status: F Test: RED CELL DISTRIBUTION WIDTH; Value: 14.6; Range: 11.5-14.5; Abnormal: Above high normal; Units: %; Status: F Test: PLATELET COUNT, AUTOMATED; Value: 250; Range: 150-450; Units: k/mm3; Status: F Test: NEUTROPHILS %; Value: 83.3; Range: 36.0-66.0; Abnormal: Above high normal; Units: %; Status: F Test: LYMPH %; Value: 10.1; Range: 24.0-44.0; Abnormal: Below low normal; Units: %; Status: F Test: MONO %; Value: 3.6; Range: 0.0-5.0; Units: %; Status: F Test: EOS %; Value: 0.5; Range: 0.0-3.0; Units: %; Status: F Test: BASO %; Value: 0.2; Range: 0.0-1.0; Units: %; Status: F Test: LARGE UNSTAINED CELL %; Value: 2.3; Range: 0.0-4.0; Units: %; Status: F Test: NEUTROPHILS #; Value: 7.8; Range: 1.8-7.7; Abnormal: Above high normal; Units: K/mm3; Status: F Test: LYMPH #; Value: 1.0; Range: 1.5-4.5; Abnormal: Below low normal; Units: K/mm3; Status: F Test: MONO #; Value: 0.3; Range: 0.0-0.8; Units: K/mm3; Status: F Test: EOS #; Value: 0.0; Range: 0.0-0.50; Units: K/mm3; Status: F Test: BASO #; Value: 0.0; Range: 0.0-0.2; Units: K/mm3; Status: F Test: LARGE UNSTAINED CELL #; Value: 0.2; Range: 0.0-0.4; Units: K/mm3; Status: F Lab Order: Cardiac Injury Profile; [facility] 05/12/16 13:26 Test: CPK CREATINE PHOSPHOKINASE; Value: 41; Range: 26-192; Units: U/L; Status: F Test: CK-MB VALUE MASS; Value: 1.0; Range: 0.0-3.6; Units: NG/ML; Status: F Test: MB/CK RELATIVE INDEX; Value: 2.43; Range: < OR =4; Status: F Test Note: ; DIAGNOSIS CRITERIA MMB ng/ml Relative Index (RI) NON-AMI < or = 5 N/A FRANZ ZONE > 5 < or = 4 AMI > 5 > 4 Lab Order: Prothrombin Time Profile\E\INR; [facility] 05/12/16 13:26 Test: PROTHROMBIN TIME; Value: 28.8; Range: 12.3-14.5; Abnormal: Above high normal; Units: SECONDS; Status: F Test: INR; Value: 2.71; Status: F Test Note: ; THERAPUTIC HUMAN INR VALUES INDICATIONS NORMAL RANGES PROPHYLAXIS/TREATMENT OF: VENOUS THROMBOSIS 2.0-3.0 PULMONARY EMBOLISM 2.0-3.0 PREVENTION OF SYSTEMIC EMBOLISM FROM: TISSUE HEART VALVES 2.0-3.0 ACUTE MYOCARDIAL INFARCTION 2.0-3.0 VALVULAR HEART DISEASE 2.0-3.0 ATRIAL FIBRILLATION 2.0-3.0 MECHANICAL VALVES(HIGH RISK) 2.5-3.5 RECURRENT MYOCARDIAL INFARCTION 2.5-3.5 Lab Order: Troponin; [facility] 05/12/16 13:26 Test: TROPONIN I; Value: < 0.02; Range: < 0.10; Units: NG/ML; Status: F Test Note: ; Troponin I Reference Interval for [employer] [place] LOCI: 99th Percentile= 0.00-0.045 ng/ml Risk Stratification: <= 0.10 ng/ml Decreased Risk for Adverse Clinical Events. 0.10-1.50 ng/ml Increased Risk for Adverse Clinical Events. Evaluation of additional criterion and/or repeat testing in 2-6 hours is suggested to rule out myocardial damage. >= 1.50 ng/ml Indicative of Myocardial Injury. Lab Order: Troponin; SPEC'M 05/12/16 16:30 Test: TROPONIN I; Value: < 0.02; Range: < 0.10; Units: NG/ML; Status: F Test Note: ; Troponin I Reference Interval for [employer] [place] LOCI: 99th Percentile= 0.00-0.045 ng/ml Risk Stratification: <= 0.10 ng/ml Decreased Risk for Adverse Clinical Events. 0.10-1.50 ng/ml Increased Risk for Adverse Clinical Events. Evaluation of additional criterion and/or repeat testing in 2-6 hours is suggested to rule out myocardial damage. >= 1.50 ng/ml Indicative of Myocardial Injury. Lab Order: Cardiac Injury Profile; SPEC'M 05/12/16 16:30 Test: CPK CREATINE PHOSPHOKINASE; Value: 35; Range: 26-192; Units: U/L; Status: F Test: CK-MB VALUE MASS; Value: 1.0; Range: 0.0-3.6; Units: NG/ML; Status: F Test: MB/CK RELATIVE INDEX; Value: 2.85; Range: < OR =4; Status: F Test Note: ; DIAGNOSIS CRITERIA MMB ng/ml Relative Index (RI) NON-AMI < or = 5 N/A FRANZ ZONE > 5 < or = 4 AMI > 5 > 4 Radiology Order: EKG-ADULT Test: EKG-ADULT REASON FOR EXAMINATION: Chest Pain; Stationary ECG Study; [facility] - ED; ; Test Date: 2016-05-12; Pat Name: LAUREEN BRUCE Department:; Room: -; Gender: F Clammer: roney; : 1940 Requested By: MARY Tello; Order Number: [id number] Meka MD: Rudy Aguero; Measurements; Intervals [place]; Rate: 109 P:; UT: 0 QRS: -19; QRSD: 93 T: 17; QT: 336; QTc: 453; Interpretive Statements; SINUS TACHYCARDIA WITH FIRST DEGREE AV BLOCK AND VENTRICULAR PREMATURE; COMPLEXES; LAE; VOLTAGE CRITERIA FOR LVH; INFERIOR MYOCARDIAL INFARCTION, PROBABLY OLD; SIMILAR TO 04/13/16; Electronically Signed On 05-14-2016 8:23:12 EST by Rudy Aguero; Radiology Order: portable chest Test: portable chest REASON FOR EXAMINATION: Chest Pain; Clinical: Chest pain.; ; Comparison: 04/13/2016.; ; Findings:; Cardiomegaly suggested. Diffuse chronic interstitial changes noted along with; elevation of the left hemidiaphragm. Left basilar atelectasis identified. No; obvious effusion or pneumothorax. Skeletal structures demonstrate degenerative; changes to the thoracic spine and bilateral shoulders.; ; Impression:; Left lower lobe atelectasis.; ; ; Signed by; Hi Padron MD 05/12/2016 01:51 P; Outcome: 17:34 Discharge ordered by Provider. fg 18:07 Discharge Assessment: Patient awake, alert and oriented x 3. No cognitive and/or kc3 functional deficits noted. Patient verbalized understanding of disposition instructions. patient administered narcotics - no. The following High Risk Discharge criteria are identified: None. Discharged to home via wheelchair. Condition: stable. Discharge instructions given to patient, Instructed on discharge instructions, follow up and referral plans. Demonstrated understanding of instructions, Pt was receptive of discharge instructions/ teaching. No special radiology studies were completed. Property :Personal belongings accompany Pt. 18:08 Patient left the ED. kc3 Signatures: Dispatcher [employer] EDMS Claudette Liang, Fadi Reg Betty Hou, RN Anushka Luz, PEDIATRICS PHYSICIAN PEDIATRICS PHYSICIAN ct3 Stephanie Roth RN RN pml Raymond, Gainslee gr2 Travon Loving mm15 Mary Fay, PEDIATRICS PHYSICIAN PEDIATRICS PHYSICIAN rs6 Mary Peguero MD MD fg Crane, Kelsi, RN RN kc3 Corrections: (The following items were deleted from the chart) 15:41 13:00 Cardiovascular: Rhythm is sinus rhythm kc3 kc3 18:05 16:30 General: Appears in no apparent distress, comfortable, Behavior is appropriate kc3 for age, cooperative, . kc3 18:06 16:30 General: Appears in no apparent distress, comfortable, Behavior is appropriate kc3 for age, cooperative, . kc3 Chart Complete MTDD
--- NOTE | 2016-05-14 19:10 | EDDOCDS ---
Physician Documentation [facility] Name: Laureen Bruce Age: 75 yrs Sex: Female : 1940 Arrival Date: 05/12/2016 Time: 12:48 Bed 14 Private MD: Tanika Disposition: 05/12/16 17:34 Discharged to Home/Self Care. Impression: Chest pain, unspecified. - Condition is Stable. - Discharge Instructions: Nonspecific Chest Pain. - Medication Reconciliation, Local Pharmacy Hours form. - Follow up: Tanika; When: Call to arrange an appointment; Reason: Continuance of care. - Problem is new. - Symptoms have improved. Historical: - Allergies: Heparin (Anaphylaxis); - Home Meds: 1. atorvastatin 40 mg oral tab 1 tab nightly 2. Chlorthalidone 12.5 mg Oral 1 tab every -- 3. Coumadin 4 mg Oral tab 1 tab once daily 4. metoprolol succinate 50 mg tab 1 tab once daily 5. Nexium 40 mg Oral cpDR 1 cap once daily 6. meclizine 25 mg oral cap as needed as needed 7. nitroglycerin 0.4 mg SL subl 1 tab every 5 minutes x 3 as needed 8. spironolactone 12.5mg Oral tab 1 tab once daily 9. tramadol 50 mg Oral tab 1 tab every 4-6 hours as needed (Last dose: 05/12/2016 12:20) 10. aspirin 81 mg Oral tab 1 tab once daily - PMHx: Diabetes - NIDDM: uncontrolled; DVT; GERD; Hypercholesterolemia; Hypertension; [place]; Hiatal Hernia; - PSHx: aortic valve replacement, porcine; CABG; Bilateral Hip Replacement; Cholecystectomy; - Social history: No barriers to communication noted, The patient speaks fluent Faroese, Smoking status: Patient states was never smoker of tobacco. - Family history: Not pertinent. - : The pt / caregiver states he / she is on anticoagulants: coumadin. Home medication list is obtained from [employer] import data. - Exposure Risk Screening:: None identified. Vital Signs: 05/12 12:50 BP 169 / 95; Pulse 116; Resp 20 S; Temp 95.8(O); Pulse Ox 97% on R/A; Weight 79.38 kg / gr2 175 lbs (R); Height 5 ft. 0 in. (152.40 cm) (R); Pain 9/10; 13:21 Pulse 106 MON; kc3 13:22 BP 160 / 74 (auto/); kc3 13:24 Pulse 108 MON; Pulse Ox 97% ; kc3 13:25 BP 143 / 64 (auto/); kc3 13:39 Pulse 98 MON; Pulse Ox 95% ; kc3 13:40 BP 141 / 78 (auto/); kc3 13:55 BP 129 / 60 (auto/); kc3 13:55 Pulse 96 MON; Pulse Ox 95% ; kc3 14:10 BP 127 / 63 (auto/); kc3 14:11 Pulse 94 MON; Pulse Ox 93% ; kc3 14:23 Pulse 96 MON; Pulse Ox 96% ; kc3 14:25 BP 126 / 61 (auto/); kc3 14:40 BP 124 / 57 (auto/); kc3 14:40 Pulse 92 MON; Pulse Ox 96% ; kc3 14:55 BP 122 / 58 (auto/); kc3 14:55 Pulse 92 MON; Pulse Ox 93% ; kc3 15:10 BP 121 / 61 (auto/); kc3 15:10 Pulse 90 MON; Pulse Ox 93% ; kc3 15:25 BP 122 / 61 (auto/); kc3 15:25 Pulse 92 MON; Pulse Ox 95% ; kc3 15:40 BP 131 / 68 (auto/); kc3 15:40 Pulse 92 MON; Pulse Ox 96% ; kc3 15:55 BP 115 / 55 (auto/); kc3 15:55 Pulse 88 MON; Pulse Ox 94% ; kc3 16:10 BP 122 / 59 (auto/); kc3 16:10 Pulse 88 MON; Pulse Ox 94% ; kc3 16:24 Pulse 88 MON; Pulse Ox 96% ; kc3 16:25 BP 123 / 61 (auto/); kc3 16:39 Pulse 88 MON; Pulse Ox 95% ; kc3 16:40 BP 119 / 56 (auto/); kc3 16:54 Pulse 86 MON; Pulse Ox 94% ; kc3 16:55 BP 118 / 59 (auto/); kc3 17:09 Pulse 88 MON; Pulse Ox 94% ; kc3 17:10 BP 124 / 57 (auto/); kc3 18:06 BP 141 / 72; Pulse 92; Resp 18; Temp 98.8(TE); Pulse Ox 95% on R/A; kc3 12:50 Body Mass Index 34.18 (79.38 kg, 152.40 cm) gr2 MDM: 12:56 ECG WITH READING ER PHYS+CARDIAG ordered. EDMS 13:12 Aspirin Chewable Tablet 324 mg PO once ordered. fg 13:12 Optical Element Coater/Pulse Ox/q 30 min VS ordered. fg 13:12 IV Saline Lock ordered. fg 13:12 Rhythm Strip to chart ordered. fg 13:12 Undress patient appropriately for examination ordered. fg 13:13 portable chest Ordered. EDMS 13:13 B-Type Natiuretic Peptide Ordered. EDMS 13:13 Basic Metabolic Profile Ordered. EDMS 13:13 CBC with Diff Ordered. EDMS 13:13 Cardiac Injury Profile Ordered. EDMS 13:13 Prothrombin Time Profile\E\INR Ordered. EDMS 13:13 Troponin Ordered. EDMS 14:50 Financial registration complete. mm15 14:51 [facility] Payment Agreement was scanned into [employer] and attached to record. mm15 16:27 Troponin Ordered. EDMS 16:27 Cardiac Injury Profile Ordered. EDMS 17:11 ketorolac 30 mg IVP once ordered. fg 17:11 GI Cocktail - (Alum-Mag Hydroxide-Simeth 30 ml, Lidocaine 10 ml, Hyoscyamine 10 ml) PO fg once; Pre-mixed 50mL unit dose ordered. 05/13 11:21 T-Sheet-- Draft Copy was scanned into [employer] and attached to record. gb 11:21 ECG/EKG was scanned into [employer] and attached to record. gb Administered Medications: 05/12 14:40 Drug: Aspirin 324 mg [aspirin 81 mg chewable tablet (4 tabs)] Route: PO; kc3 17:36 Not Given (Pt stated allergyy): ketorolac 30 mg IVP once kc3 17:36 Drug: GI Cocktail - (Alum-Mag Hydroxide-Simeth Suspension 225 mg-200 mg-25 mg/5 mL 30 kc3 ml, Lidocaine Liquid 2 % 10 ml, Hyoscyamine Liquid 10 ml) Route: PO; Signatures: Dispatcher MedHost EDMS Claudette Liang, Reg Reg gb Betty Son, DEN RN Travon Simon mm15 Peguero, Mary, MD MD fg Thapa,Nina,RN RN kc3 The chart was reviewed and I authenticate all verbal orders and agree with the evaluation and treatment provided.Attachments: 14:51 [facility] [place] mm15 05/13 11:21 T-Sheet-- Draft Copy gb 11:21 ECG/EKG gb Chart Complete MTDD
== END 2016-05-12 18:08 | disposition home or self-care (01) ==
LOC: M ED 12:48
DX: R07.9 Chest pain, unspecified (principal); E11.9 Type 2 diabetes mellitus without complications; K21.9 Gastro-esophageal reflux disease without esophagitis; E78.00 Pure hypercholesterolemia, unspecified; I10 Essential (primary) hypertension; I25.2 Old myocardial infarction; K44.9 Diaphragmatic hernia without obstruction or gangrene; Z95.1 Presence of aortocoronary bypass graft; Z95.2 Presence of prosthetic heart valve; Z96.641 Presence of right artificial hip joint; Z96.642 Presence of left artificial hip joint; Z79.01 Long term (current) use of anticoagulants; Z86.718 Personal history of other venous thrombosis and embolism; Z79.82 Long term (current) use of aspirin; Z79.891 Long term (current) use of opiate analgesic; Z79.899 Other long term (current) drug therapy; Z88.8 Allergy status to other drugs, medicaments and biological substances

== ENCOUNTER 2016-05-15 19:34 | Inpatient (IN) | payer MEDICARE, OTHER ==
[~2016-05-15] VITALS: Ht 157.5 cm; Wt 81.9 kg
[2016-05-15 21:22] LABS: BASO % 0.2 % (0.0-1.0); EOS % 0.4 % (0.0-3.0); LARGE UNSTAINED CELL # 0.1 K/mm3 (0.0-0.4); LARGE UNSTAINED CELL % 1.2 % (0.0-4.0); LYMPH # 1.8 K/mm3 (1.5-4.5); LYMPH % 14.1 % (24.0-44.0); MEAN CORPUSCULAR HEMOGLOBIN 31.6 pg (27.0-33.0); MEAN CORPUSCULAR HGB CONC 34.3 g/dl (32.0-36.5); MEAN CORPUSCULAR VOLUME 92.1 fl (80.0-96.0); MONO # 0.7 K/mm3 (0.0-0.8); MONO % 6.2 % (0.0-5.0); NEUTROPHILS # 9.2 K/mm3 (1.8-7.7); NEUTROPHILS % 77.9 % (36.0-66.0); PLATELET COUNT, AUTOMATED 278 k/mm3 (150-450); RED CELL DISTRIBUTION WIDTH 14.8 % (11.5-14.5); WHITE BLOOD COUNT 11.8 K/mm3 (4.0-10.0)
[2016-05-15 21:28] LABS: ANION GAP 11 MEQ/L (8-16); BLOOD UREA NITROGEN 15 MG/DL (7-18); CALCIUM LEVEL 9.5 MG/DL (8.8-10.2); CARBON DIOXIDE LEVEL 23 MEQ/L (21-32); CHLORIDE LEVEL 102 MEQ/L (98-107); GLOMERULAR FILTRATION RATE > 60.0 (>39); GLUCOSE, FASTING 168 MG/DL (83-110); POTASSIUM SERUM 3.4 MEQ/L (3.5-5.1); SODIUM LEVEL 136 MEQ/L (136-145)
[2016-05-15 21:29] LABS: INR 4.38
--- NOTE | 2016-05-15 21:50 | REPUSA ---
Clinical history: Pain, swelling. Findings: The left common femoral, superficial femoral, popliteal, and other deep venous structures c ompress normally and demonstrate normal color Doppler flow. Normal venous waveforms with augmentation are seen. Impression: No evidence of deep vein thrombosis in the left femoral popliteal venous system.
[2016-05-15] MEDS ORDERED: ZOSYN 3.375 GM VIAL (J2543) As Ordered ONE (22:28)
[2016-05-15] MEDS ORDERED: fentaNYL 100 MCG/2 ML INJECTION (J3010) As Ordered ONE (22:28)
[2016-05-15] MEDS ORDERED: MAGN400T2 PO (23:21)
[2016-05-15] MEDS ORDERED: ASPI81TAEC PO (23:21)
[2016-05-16] MEDS ORDERED: POTASSIUM CHLORIDE 10 MEQ SR TABLET PO ONE ×2 (01:00→14:00)
[2016-05-16 01:03] VITALS: BP 172/77
--- NOTE | 2016-05-16 01:05 | EDDOCDS ---
Nurse's Notes [facility] Name: Laureen Bruce Age: 75 yrs Sex: Female : 1940 Arrival Date: 05/15/2016 Time: 19:34 Bed 5 Private MD: Grecia Jimenez Diagnosis: Cellulitis of right upper limb;Pain in left knee;Difficulty in walking, not elsewhere classified Presentation: 05/15 19:37 Presenting complaint: EMS states: Patient found sitting in her chair by neighbour kas2 unable to walk or move. Neighbour has been coming over assisting patient to bathroom for about a week. History of arthritis. Bilateral knee swelling. Bilateral hand swelling. Refused FSBS. Adult Sepsis Screening: The patient does not have new or worsening altered mentation. Patient's respiratory rate is less than 22. Systolic blood pressure is greater than 100. Patient has a qSOFA score of 0- Negative Sepsis Screen. Suicide/Homicide risk assessment- the patient denies having any suicidal and/or homicidal ideations and does not present with any other emotional, behavioral or mental health complaints. Status: Patient is not a student services advisor or dependent. Transition of care: patient was not received from another setting of care. 19:37 Acuity: FRANKY Level 3 [facility] 19:37 Method Of Arrival: Ambulance [facility] Triage Assessment: 19:53 General: Appears in no apparent distress, uncomfortable, well nourished, well groomed, kas2 Behavior is appropriate for age, cooperative. Pain: Location: right knee, left knee and both hands Pain currently is 8 out of 10 on a pain scale. Neurological: Level of Consciousness is awake, alert, Oriented to person, place, time. Cardiovascular: Capillary refill < 3 seconds Heart tones S1 S2 present Rhythm is regular. Respiratory: Airway is patent Respiratory effort is even, unlabored, Respiratory pattern is regular, symmetrical, Breath sounds are clear bilaterally. GI: Abdomen is obese, Bowel sounds present X 4 quads. Abd is soft and non tender X 4 quads. Derm: Skin is intact, Skin is dry, Skin is pink, warm & dry. Skin temperature is warm. Musculoskeletal: Circulation, motion, and sensation intact Capillary refill < 3 seconds Range of motion limited in all extremities. Historical: - Allergies: Heparin (Anaphylaxis); - Home Meds: 1. aspirin 81 mg Oral tab 1 tab once daily (Last dose: 05/15/2016 08:00) 2. atorvastatin 40 mg oral tab 1 tab nightly 3. Chlorthalidone 12.5 mg Oral 1 tab every -- 4. Coumadin 4 mg Oral tab 1 tab once daily (Last dose: 05/15/2016 19:00) 5. meclizine 25 mg Oral cap as needed as needed 6. metoprolol succinate 50 mg tab 1 tab once daily 7. Nexium 40 mg Oral cpDR 1 cap once daily 8. nitroglycerin 0.4 mg SL subl 1 tab every 5 minutes x 3 as needed 9. spironolactone 12.5mg Oral tab 1 tab once daily (Last dose: 05/15/2016 08:00) 10. tramadol 50 mg Oral tab 1 tab every 4-6 hours as needed (Last dose: 05/15/2016 17:00) - PMHx: Diabetes - NIDDM: uncontrolled; GERD; Hiatal Hernia; Hypercholesterolemia; Hypertension; [place]; - PSHx: Carpal Tunnel Repair- Bilateral; Cholecystectomy; Arthroscopy, Knee- Left; Arthroscopy, Knee- Right; CABG; - Social history: Smoking status: Patient states was never smoker of tobacco. No barriers to communication noted, The patient speaks fluent Senegalese. - Family history: No immediate family members are acutely ill. - : The pt / caregiver states he / she is not on anticoagulants. Home medication list is obtained from the patient. - Exposure Risk Screening:: None identified. Screenin:08 Screening information is obtained from the patient. Fall risk: No risks identified. kas2 Assistance ADL's: requires no assistance with activities of daily living. Abuse/DV Screen: The patient / caregiver reports he/she is: not in a situation that causes fear, pain or injury. Nutritional screening: No deficits noted. Advance Directives: Currently, there is no health care proxy. There is no active DNR order. There is no living will. There is no Power of Senior Hr Business Partner. home support is adequate. Assessment: 19:56 General: See triage note.. kas2 21:08 General: Appears in no apparent distress, uncomfortable, Behavior is appropriate for kas2 age, cooperative. Pain: Location: right leg and right knee Pain currently is 6 out of 10 on a pain scale. Neurological: Level of Consciousness is awake, alert, Oriented to person, place, time. Cardiovascular: Rhythm is regular. Respiratory: No deficits noted. Airway is patent Respiratory effort is even, unlabored, Respiratory pattern is regular, symmetrical. Derm: Skin is intact, Skin is dry, Skin is pink, warm & dry. Skin temperature is warm. 22:01 General: Appears in no apparent distress, comfortable, well nourished, well groomed, kas2 Behavior is appropriate for age, cooperative. Pain: Location: right leg and right knee Pain At worst was 5 out of 10 on a pain scale. Neurological: Level of Consciousness is awake, alert, Oriented to person, place, time. Cardiovascular: Rhythm is regular. Respiratory: Airway is patent Respiratory effort is even, unlabored, Respiratory pattern is regular, symmetrical. Derm: Skin is intact, Skin is dry, Skin is pink, warm & dry. Skin temperature is warm. 22:45 General: Appears in no apparent distress, comfortable, Behavior is appropriate for age, nn1 cooperative. Neurological: Level of Consciousness is awake, alert, Oriented to person, place, time. Respiratory: Airway is patent Respiratory effort is even, unlabored, Respiratory pattern is regular, symmetrical. Derm: Skin is pink, warm & dry. 22:46 General: antibiotics infusing per order, patient on monitor. . nn1 23:43 General: Patient assisted to bedside commode. Antibiotics infusion completed. Patient nn1 reports no relief of pain in right hand, states hand is tingling, states this is no change from prior to entering ED. . 05/16 00:34 General: Appears in no apparent distress, Patient reporting pain, hospitalist aware. . nn1 Respiratory: Airway is patent Respiratory effort is even, unlabored, Respiratory pattern is regular, symmetrical. 00:39 General: SBAR sent to 5pratt. nn1 Vital Signs: 05/15 19:53 BP 134 / 82; Pulse 82; Resp 18; Temp 99.4(O); Pulse Ox 95% on R/A; Weight 78.02 kg; kas2 Height 5 ft. 2 in. (157.48 cm); Pain 8/10; 22:38 BP 138 / 61 (auto/); nn1 22:38 Pulse 84 MON; Pulse Ox 96% ; nn1 22:38 Resp 18; nn1 05/16 00:38 BP 161 / 74; Pulse 87; Resp 18; Temp 98.8(TE); Pulse Ox 96% on R/A; Pain 3/10; nn1 05/15 19:53 Body Mass Index 31.46 (78.02 kg, 157.48 cm) [facility] Vitals: 02 19:53 Log In Time N/A - ambulance arrival. [facility] ED Course: 19:36 Patient visited by Lora Watson PCA. tmm1 19:36 Patient moved to Waiting tmm1 19:37 Grecia Jimenez is Private Physician. tmm1 19:37 Lily Pena RN is Primary Nurse. tmm1 19:37 Roxana Solomon RN is Primary Nurse. tmm1 19:37 Patient moved to 5 tmm1 19:46 Triage Initiated kas2 20:04 Onel Beard DO is Attending Physician. mm11 20:04 Patient visited by Onel Beard DO. mm11 20:19 Patient visited by Onel Beard DO. mm11 20:47 Patient moved to Ultrasound en 20:53 Patient moved to 5 en 20:56 Patient visited by Onel Beard DO. mm11 21:07 BLOOD CULTURES Sent. kas2 21:08 Inserted saline lock: 20 gauge in left antecubital area and blood collected. The [facility] patient tolerated the procedure well. No procedures done that require assistance. 21:09 Patient visited by Roxana Solomon RN. kas2 21:13 [facility] Payment Agreement was scanned into TheReadingRoom and attached to record. gjb 21:14 Patient moved to Ultrasound en 21:36 Patient moved to 5 en 22:03 Patient visited by Roxana Solomon RN. kas2 22:04 DVT US Lower Returned. EDMS 22:14 Patient visited by Roxana Solomon RN. kas2 22:44 Patient visited by Onel Beard DO. mm11 23:15 Nael Serrano DO is Hospitalizing Provider. mm11 05/16 00:46 Primary Nurse role handed off by Lily Pena RN sls1 00:52 The patient / caregiver is instructed regarding the plan of care and ED course. nn1 Administered Medications: 05/15 22:45 Drug: Piperacillin-Tazobactam 3.375 grams [piperacillin-tazobactam 3.375 gram nn1 intravenous solution] Route: IVPB; Infused Over: 30 mins; Site: left antecubital; 05/16 00:34 Follow up: IV Status: Completed infusion; IV Intake: 50ml nn1 05/15 22:45 Drug: fentaNYL (PF) 50 mcg [fentanyl (PF) 50 mcg/mL injection solution (1 mL)] Route: nn1 IVP; Site: left antecubital; Intake: 05/16 00:34 IV: 50.00ml; Total: 50.00ml. nn1 Order Results: Lab Order: CBC with Diff; SPEC'M 05/15/16 20:55 Test: WHITE BLOOD COUNT; Value: 11.8; Range: 4.0-10.0; Abnormal: Above high normal; Units: K/mm3; Status: F Test: RED BLOOD COUNT; Value: 3.63; Range: 4.00-5.40; Abnormal: Below low normal; Units: M/mm3; Status: F Test: HEMOGLOBIN; Value: 11.5; Range: 12.0-16.0; Abnormal: Below low normal; Units: g/dl; Status: F Test: HEMATOCRIT; Value: 33.4; Range: 36.0-47.0; Abnormal: Below low normal; Units: %; Status: F Test: MEAN CORPUSCULAR VOLUME; Value: 92.1; Range: 80.0-96.0; Units: fl; Status: F Test: MEAN CORPUSCULAR HEMOGLOBIN; Value: 31.6; Range: 27.0-33.0; Units: pg; Status: F Test: MEAN CORPUSCULAR HGB CONC; Value: 34.3; Range: 32.0-36.5; Units: g/dl; Status: F Test: RED CELL DISTRIBUTION WIDTH; Value: 14.8; Range: 11.5-14.5; Abnormal: Above high normal; Units: %; Status: F Test: PLATELET COUNT, AUTOMATED; Value: 278; Range: 150-450; Units: k/mm3; Status: F Test: NEUTROPHILS %; Value: 77.9; Range: 36.0-66.0; Abnormal: Above high normal; Units: %; Status: F Test: LYMPH %; Value: 14.1; Range: 24.0-44.0; Abnormal: Below low normal; Units: %; Status: F Test: MONO %; Value: 6.2; Range: 0.0-5.0; Abnormal: Above high normal; Units: %; Status: F Test: EOS %; Value: 0.4; Range: 0.0-3.0; Units: %; Status: F Test: BASO %; Value: 0.2; Range: 0.0-1.0; Units: %; Status: F Test: LARGE UNSTAINED CELL %; Value: 1.2; Range: 0.0-4.0; Units: %; Status: F Test: NEUTROPHILS #; Value: 9.2; Range: 1.8-7.7; Abnormal: Above high normal; Units: K/mm3; Status: F Test: LYMPH #; Value: 1.8; Range: 1.5-4.5; Units: K/mm3; Status: F Test: MONO #; Value: 0.7; Range: 0.0-0.8; Units: K/mm3; Status: F Test: EOS #; Value: 0.0; Range: 0.0-0.50; Units: K/mm3; Status: F Test: BASO #; Value: 0.0; Range: 0.0-0.2; Units: K/mm3; Status: F Test: LARGE UNSTAINED CELL #; Value: 0.1; Range: 0.0-0.4; Units: K/mm3; Status: F Lab Order: [facility]; SPEC'M 05/15/16 20:55 Test: GLUCOSE, FASTING; Value: 168; Range: 83-110; Abnormal: Above high normal; Units: MG/DL; Status: F Test: BLOOD UREA NITROGEN; Value: 15; Range: 7-18; Units: MG/DL; Status: F Test: CREATININE FOR GFR; Value: 0.50; Range: 0.55-1.02; Abnormal: Below low normal; Units: MG/DL; Status: F Test: GLOMERULAR FILTRATION RATE; Value: > 60.0; Range: >39; Status: F Test: SODIUM LEVEL; Value: 136; Range: 136-145; Units: MEQ/L; Status: F Test: POTASSIUM SERUM; Value: 3.4; Range: 3.5-5.1; Abnormal: Below low normal; Units: MEQ/L; Status: F Test: CHLORIDE LEVEL; Value: 102; Range: 98-107; Units: MEQ/L; Status: F Test: CARBON DIOXIDE LEVEL; Value: 23; Range: 21-32; Units: MEQ/L; Status: F Test: ANION GAP; Value: 11; Range: 8-16; Units: MEQ/L; Status: F Test: CALCIUM LEVEL; Value: 9.5; Range: 8.8-10.2; Units: MG/DL; Status: F Test Note: ; Units are mL/min/1.73 m2 Chronic Kidney Disease Staging per NKF: Stage I & II GFR >=60 Normal to Mildly Decreased Stage III GFR 30-59 Moderately Decreased Stage IV GFR 15-29 Severely Decreased Stage V GFR <15 Very Little GFR Left ESRD GFR <15 on [employer]LL[employer] Lab Order: Pt & Aptt; SPEC'M 05/15/16 20:55 Test: PROTHROMBIN TIME; Value: 41.8; Range: 12.3-14.5; Abnormal: Above high normal; Units: SECONDS; Status: F Test: INR; Value: 4.38; Status: F Test: PARTIAL THROMBOPLASTIN TIME; Value: 82.1; Range: 26.6-37.1; Abnormal: Above high normal; Units: SECONDS; Status: F Test Note: ; THERAPUTIC HUMAN INR VALUES INDICATIONS NORMAL RANGES PROPHYLAXIS/TREATMENT OF: VENOUS THROMBOSIS 2.0-3.0 PULMONARY EMBOLISM 2.0-3.0 PREVENTION OF SYSTEMIC EMBOLISM FROM: TISSUE HEART VALVES 2.0-3.0 ACUTE MYOCARDIAL INFARCTION 2.0-3.0 VALVULAR HEART DISEASE 2.0-3.0 ATRIAL FIBRILLATION 2.0-3.0 MECHANICAL VALVES(HIGH RISK) 2.5-3.5 RECURRENT MYOCARDIAL INFARCTION 2.5-3.5 Lab Order: CRP; SPEC'M 05/15/16 20:55 Test: C REACTIVE PROTEIN QUANTITATIV; Value: 18.20; Range: 0.00-0.30; Abnormal: Above high normal; Units: MG/DL; Status: F Radiology Order: DVT US Lower Test: DVT US Lower REASON FOR EXAMINATION: Deformity/Swelling; ; Clinical history: Pain, swelling.; Findings: The left common femoral, superficial femoral, popliteal, and other deep venous structures c; ompress normally and demonstrate normal color Doppler flow. Normal venous waveforms with augmentation; are seen.; Impression:; No evidence of deep vein thrombosis in the left femoral popliteal venous system.; ; Outcome: 05/15 23:16 Decision to Hospitalize by Provider. mm11 05/16 00:51 Discharge Assessment: Patient awake, alert and oriented x 3. No cognitive and/or nn1 functional deficits noted. Patient verbalized understanding of disposition instructions. patient administered narcotics - yes. Patient was admitted to the hospital or transferred to another facility. The following High Risk Discharge criteria are identified: None. Admitted to Med/Surg accompanied by tech, via stretcher, with chart. Condition: unchanged. Ultrasound Study completed. Admission hand-off: Report called to DEN Kelly. Property :Personal belongings accompany Pt. 01:04 Patient left the ED. nn1 Signatures: Dispatcher MedHost EDMS Onel Beard, DO mm11 Janis Thakkar RN RN sls1 Lora Watson, SEPTIC TANK CLEANER SEPTIC TANK CLEANER tmm1 Rebecca Molina RN RN nn1 Fouzia Herrera Gabriela gjb Smith, KimRN RN kas2 [facility]
--- NOTE | 2016-05-16 01:05 | EDDOCDS ---
Physician Documentation [facility] Name: Laureen Bruce Age: 75 yrs Sex: Female : 1940 Arrival Date: 05/15/2016 Time: 19:34 Bed 5 Private MD: Grecia Jimenez Disposition: 05/15/16 23:16 Hospitalization ordered by Nael Serrano for Inpatient Admission. Preliminary diagnosis are Cellulitis of right upper limb, Pain in left knee, Difficulty in walking, not elsewhere classified. - Bed requested for 5 [place]. - Status is Inpatient Admission. nn1 - Condition is Stable. - Problem is an acute exacerbation. - Symptoms have improved. Historical: - Allergies: Heparin (Anaphylaxis); - Home Meds: 1. aspirin 81 mg Oral tab 1 tab once daily (Last dose: 05/15/2016 08:00) 2. atorvastatin 40 mg oral tab 1 tab nightly 3. Chlorthalidone 12.5 mg Oral 1 tab every -- 4. Coumadin 4 mg Oral tab 1 tab once daily (Last dose: 05/15/2016 19:00) 5. meclizine 25 mg Oral cap as needed as needed 6. metoprolol succinate 50 mg tab 1 tab once daily 7. Nexium 40 mg Oral cpDR 1 cap once daily 8. nitroglycerin 0.4 mg SL subl 1 tab every 5 minutes x 3 as needed 9. spironolactone 12.5mg Oral tab 1 tab once daily (Last dose: 05/15/2016 08:00) 10. tramadol 50 mg Oral tab 1 tab every 4-6 hours as needed (Last dose: 05/15/2016 17:00) - PMHx: Diabetes - NIDDM: uncontrolled; GERD; Hiatal Hernia; Hypercholesterolemia; Hypertension; [place]; - PSHx: Carpal Tunnel Repair- Bilateral; Cholecystectomy; Arthroscopy, Knee- Left; Arthroscopy, Knee- Right; CABG; - Social history: Smoking status: Patient states was never smoker of tobacco. No barriers to communication noted, The patient speaks fluent Welsh. - Family history: No immediate family members are acutely ill. - : The pt / caregiver states he / she is not on anticoagulants. Home medication list is obtained from the patient. - Exposure Risk Screening:: None identified. Vital Signs: 05/15 19:53 BP 134 / 82; Pulse 82; Resp 18; Temp 99.4(O); Pulse Ox 95% on R/A; Weight 78.02 kg / kas2 172 lbs; Height 5 ft. 2 in. (157.48 cm); Pain 8/10; 22:38 BP 138 / 61 (auto/); nn1 22:38 Pulse 84 MON; Pulse Ox 96% ; nn1 22:38 Resp 18; nn1 05/16 00:38 BP 161 / 74; Pulse 87; Resp 18; Temp 98.8(TE); Pulse Ox 96% on R/A; Pain 3/10; nn1 05/15 19:53 Body Mass Index 31.46 (78.02 kg, 157.48 cm) kas2 MDM: 05/15 20:21 IV Saline Lock ordered. mm11 20:21 -Blood Culture (Adults Only), peripheral from different site, or from device/port/PICC mm11 etc. if present ordered. 20:21 CBC with Diff Ordered. EDMS 20:21 BMP Ordered. EDMS 20:21 Pt & Aptt Ordered. EDMS 20:21 CRP Ordered. EDMS 20:22 -Blood Culture Ordered. EDMS 20:22 Hand, Complete Ordered. EDMS 20:22 Knee, (AP\E\Lat) Ordered. EDMS 20:22 DVT US Lower Ordered. EDMS 20:32 -Blood Culture (Adults Only), peripheral from different site, or from device/port/PICC tmm1 etc. if present complete. 20:33 BLOOD CULTURES Ordered. EDMS 21:09 Financial registration complete. gjb 21:13 [facility] Payment Agreement was scanned into [employer] and attached to record. gjb 21:51 CBC with Diff Reviewed. mm11 21:51 BMP Reviewed. mm11 21:51 Pt & Aptt Reviewed. mm11 21:51 CRP Reviewed. mm11 22:15 BED REQUEST+ADM ordered. EDMS 22:16 Piperacillin-Tazobactam 3.375 grams IVPB once over 30 mins; dilute in 50mL of NS or D5W mm11 ordered. 22:16 fentaNYL (PF) 50 mcg IVP once ordered. mm11 22:21 DVT US Lower Reviewed. mm11 22:53 Admission / Observation Status ordered. EDMS 05/16 00:48 CBC WITH DIFFERENTIAL Ordered. EDMS 00:48 BASIC METABOLIC PROFILE Ordered. EDMS 00:48 PROTHROMBIN TIME PROFILE\E\INR Ordered. EDMS 00:48 C REACTIVE PROTEIN QUANTITATIV Ordered. EDMS 00:49 PHYSICAL THERAPY EVAL & TREAT ordered. EDMS 00:49 CONSISTENT CARBOHYDRATES ordered. EDMS Administered Medications: 05/15 22:45 Drug: Piperacillin-Tazobactam 3.375 grams [piperacillin-tazobactam 3.375 gram nn1 intravenous solution] Route: IVPB; Infused Over: 30 mins; Site: left antecubital; 05/16 00:34 Follow up: IV Status: Completed infusion; IV Intake: 50ml nn1 05/15 22:45 Drug: fentaNYL (PF) 50 mcg [fentanyl (PF) 50 mcg/mL injection solution (1 mL)] Route: nn1 IVP; Site: left antecubital; Signatures: Dispatcher MedHost EDOnel Fierro, DO mm11 Janis Thakkar RN RN sls1 Lora Watson, ECONOMICS INSTRUCTOR ECONOMICS INSTRUCTOR tmm1 Rebecca Molina RN RN nn1 Ary Hoffman Kim, RN RN kas2 The chart was reviewed and I authenticate all verbal orders and agree with the evaluation and treatment provided.Attachments: 21:13 [facility] Payment Agreement [email or web address]
[2016-05-16] MEDS: ACETAMINOPHEN 650MG ER TAB (TYLENOL ARTHRITIS) PO PRN (01:36)
[2016-05-16] MEDS: traMADol 50 MG TAB PO PRN (01:36)
[2016-05-16] MEDS: MAGNESIUM OXIDE 400 MG TAB (MAG-OX) PO SCH ×2 (01:36→19:55)
[2016-05-16] MEDS: ATORVASTATIN 20 MG TAB PO SCH ×2 (01:37→19:55)
[2016-05-16] MEDS: VANCOMYCIN HCL 1,000 MG, VIAL MATE ADAPTER 1 EACH in D5W 250 ML IV SCH ×2 (02:10→12:27)
[2016-05-16] MEDS ORDERED: PERCOCET 5MG/325MG TAB PO PRN (03:15)
--- NOTE | 2016-05-16 04:57 | PHACANCOPD ---
PHARMACY VANCOMYCIN DOSING Pt Demographics Demographics Patient Age:75 , Weight:81.900 , Gender: female Adjusted Body Weight Date: 05/16/16, Adjusted Body Weight: [61.3] Kg Vancomycin Vancomycin indication: cellulitis wrist Vancomycin Target Ranges: 10-20 mcg/ml Vancomycin Load Y/N: No Load Dose Date Time Vancomycin Load Dose: Date: Time: Vancomycin Dose Date: 05/16/16. Current Vancomycin Dose: [1 GM iv q12h] Intermittent Dosing?: No Labs Labs Laboratory Tests 05/15/16 20:55 Calcium Level 9.5, Red Blood Count 3.63 L, Mean Corpuscular Volume 92.1, Mean Corpuscular Hemoglobin 31.6, Mean Corpuscular Hemoglobin Concent 34.3, Red Cell Distribution Width 14.8 H, Neutrophils (%) (Auto) 77.9 H, Lymphocytes (%) (Auto ) 14.1 L, Monocytes (%) (Auto) 6.2 H, Eosinophils (%) (Auto) 0.4, Basophils (%) (Auto) 0.2, Neutrophils # (Auto) 9.2 H, Lymphocytes # (Auto) 1.8, Monocytes # ( Auto) 0.7, Eosinophils # (Auto) 0.0, Basophils # (Auto) 0.0 Micro Microbiology 05/15/16 Blood Culture, Received Pending 05/15/16 Blood Culture, Received Pending Creatinine Clearance Date:05/16/16. Creatinine Clearance: [96]calculated using scr=0.5. Pending Labs vanco trough due 05/17@1100 Assessment and Plan Maintaining Current Dose?: Yes Reason for dose change: No Dose Change, Other Pharmacist Note Pharmacist Note Date: 05/16/16. Pharmacist note:treating wrist cellulitis w/Vancomycin beginning at 1 GM IV Q12H X 2 doses,then maintining 750mg IV Q12H regimen thereafter..trough scheduled for 05/17@1100 (prior to the 4th dose)-will continue to monitor SCR and levels [facility] May 16, 2016 04:57
[2016-05-16 06:00] VITALS: BP 124/59
[2016-05-16 06:50] LABS: BASO % 0.3 % (0.0-1.0); EOS # 0.1 K/mm3 (0.0-0.50); EOS % 0.8 % (0.0-3.0); LARGE UNSTAINED CELL # 0.2 K/mm3 (0.0-0.4); LARGE UNSTAINED CELL % 1.9 % (0.0-4.0); LYMPH # 1.9 K/mm3 (1.5-4.5); LYMPH % 21.7 % (24.0-44.0); MEAN CORPUSCULAR HEMOGLOBIN 31.4 pg (27.0-33.0); MEAN CORPUSCULAR HGB CONC 33.8 g/dl (32.0-36.5); MEAN CORPUSCULAR VOLUME 92.8 fl (80.0-96.0); MONO # 0.6 K/mm3 (0.0-0.8); MONO % 7.8 % (0.0-5.0); NEUTROPHILS # 5.5 K/mm3 (1.8-7.7); NEUTROPHILS % 67.5 % (36.0-66.0); PLATELET COUNT, AUTOMATED 241 k/mm3 (150-450); RED CELL DISTRIBUTION WIDTH 14.8 % (11.5-14.5); WHITE BLOOD COUNT 8.2 K/mm3 (4.0-10.0)
[2016-05-16 07:10] LABS: ANION GAP 10 MEQ/L (8-16); BLOOD UREA NITROGEN 14 MG/DL (7-18); CARBON DIOXIDE LEVEL 25 MEQ/L (21-32); CHLORIDE LEVEL 104 MEQ/L (98-107); CREATININE FOR GFR 0.52 MG/DL (0.55-1.02); GLOMERULAR FILTRATION RATE > 60.0 (>39); GLUCOSE, FASTING 152 MG/DL (83-110); POTASSIUM SERUM 3.3 MEQ/L (3.5-5.1); SODIUM LEVEL 139 MEQ/L (136-145)
[2016-05-16 07:24] LABS: INR 6.3
--- NOTE | 2016-05-16 08:12 | REP ---
LEFT KNEE, AP AND LATERAL VIEWS: On the left knee study, there are extensive degenerative spurs of the medial and lateral joints with joint space narrowing. There is some lateral subluxation at the knee joint. The patellofemoral articulation shows considerable spur formation with joint space narrowing. Vascular calcifications are identified. IMPRESSION: Severe degenerative osteoarthritis as described. Vascular calcifications. This represents three compartment osteoarthritis. Unreviewed
--- NOTE | 2016-05-16 08:16 | REP ---
RIGHT HAND, COMPLETE: The bone density is decreased. At the MP joints, there is some soft tissue calcifications or periarticular calcifications. At the first metacarpal carpal joint are severe degenerative spurs with sclerosis, joint space narrowing and some dorsal displacement at the joint. Calcifications are noted at the radial and ulnar cartilages. The distance between and scaphoid and lunate is increased. There are some degenerative spurs involving the distal IP joints and proximal IP joints. The distal IP joint of second finger shows some flexion. Similar findings but less extensive are noted at the third and fourth fingers. IMPRESSION: Severe degenerative osteoarthritis of the fingers, metacarpals and thumb as described. Probably some scapholunate disassociation. The periarticular calcifications are consistent with chondrocalcinosis. Unreviewed
[2016-05-16] MEDS: PANTOPRAZOLE 40MG TAB (PROTONIX) PO SCH (09:00)
[2016-05-16] MEDS: METOPROLOL SUCC (TopROL XL) 50MG **XL** TAB PO SCH (09:00)
[2016-05-16] MEDS: ASPIRIN 81 MG ENTERIC TAB PO SCH (09:00)
[2016-05-16] MEDS: SPIRONOLACTONE 12.5MG PER 1/2 TABLET PO SCH (09:00)
[2016-05-16] MEDS ORDERED: PHYTONADIONE 2.5 MG **1/2 TAB PO ONE (11:30)
--- NOTE | 2016-05-16 12:46 | HPE ---
DATE OF ADMISSION: 05/15/2016 PRIMARY CARE PHYSICIAN: Grecia Jimenez ATTENDING PHYSICIAN: Dr. Nael Serrano CHIEF COMPLAINT: Painful, swollen right wrist. HISTORY OF PRESENT ILLNESS: This is a 75-year-old female with a past medical history of osteoarthritis and coronary artery disease who presented to the emergency department [facility] with complaints of worsening left knee and right wrist swelling and pain. She has been complaining of worsening symptoms since Sunday. She has been sleeping in her chair to help alleviate her left knee swelling. She reports that she has been getting assistance from her neighbor to move her to the bathroom for the last week. This morning, the patient was found sitting in her chair by the neighbor, and she was unable to get up from her chair. PAST MEDICAL HISTORY: 1. Osteoarthritis of multiple joints, including the knees, ankles, feet, hands. 2. Spinal stenosis. 3. Aortic valve dysfunction status post aortic valve replacement. 4. History of previous myocardial infarction. 5. Status post coronary artery bypass graft (CABG). 6. Hypertension. 7. Hiatal hernia. SURGICAL HISTORY: 1. Left total hip. 2. Right total hip. 3. Cholecystectomy. 4. Right and left knee arthroscopy. 5. Bilateral carpal tunnel release. 6. Aortic valve replacement. 7. CABG. FAMILY HISTORY: Father had heart disease. Also had valve replacement. Mother had heart disease. The patient has a brother who has a mechanical valve. SOCIAL HISTORY: This patient is a nonsmoker. She admits to a history of social smoking in her 20s but has quit since. Denies any alcohol use. Denies any recreational drug use. She lives independently. She does not have any pets. ALLERGIES: She has an anaphylactic reaction to HEPARIN. MEDICATIONS: - aspirin 81 mg daily - atorvastatin 40 mg at night - chlorthalidone 12.5 mg on Sunday, Sunday, Sunday - Coumadin 4 mg daily - meclizine 25 mg as needed - metoprolol succinate 50 mg daily - Nexium 40 mg daily - nitroglycerin sublingual as needed - spironolactone 12.5 mg daily - tramadol 50 mg every 4-6 hours as needed. REVIEW OF SYSTEMS: CONSTITUTIONAL: Denies any fevers, any weight changes. HEENT: Denies any headaches . She denies changes in hearing, sore throat, nasal congestion. CARDIOVASCULAR: Denies any chest pain, shortness of breath. RESPIRATORY: Denies any cough, shortness of breath, dyspnea, wheeze. GASTROINTESTINAL: Denies abdominal pain, nausea, vomiting, diarrhea, or constipation. Denies any bloody stools. Denies any black stools. GENITOURINARY: Denies any incontinence, dysuria, hematuria. MUSCULOSKELETAL: Admits to joint pain in the shoulders, back, knees, wrists, hands, feet. Admits to swollen knees, especially on the left, and also right wrist swelling. INTEGUMENTARY: Admits to redness in the right wrist and pain to palpation. No other skin changes. NEUROLOGICAL: Occasional numbness and tingling in the right upper extremity. HEMATOLOGY: No abnormal bleeding or bruising. ENDOCRINE: Positive for diabetes, which is diet controlled. PHYSICAL EXAMINATION: VITAL SIGNS: Blood pressure is 130/61, pulse is 82, respirations 18, temperature 99.4, pulse oximetry is 95% on room air. Her weight is 78.02. Her height is 157 cm. GENERAL: She is lying comfortably on the hospital bed. She is in no acute distress. HEENT: Normocephalic, atraumatic. Her extraocular movements are intact bilaterally. Her pupils are equally round and reactive to light and accommodation. Her throat is without erythema or exudates. Her mucous membranes are moist. CARDIOVASCULAR: Regular rate and rhythm. She has a systolic ejection murmur appreciated in the right sternal border. RESPIRATORY: Clear to auscultation bilaterally. No wheezes appreciated. ABDOMEN: Soft, nontender, nondistended. Normoactive bowel sounds are heard throughout. EXTREMITIES: No edema is appreciated in the lower extremities. 2+ radial pulse and pedal pulses. SKIN: Her posterior right upper extremity is erythematous in the right posterior wrist area, extending into the proximal part of the hand. The erythema has well-defined borders. She has a marker outlining the extent of the erythema. The area is warm to touch. It is tender to light palpation over the area. No broken skin and the area is appreciated. NEUROLOGIC: She has decreased muscular strain in her right hand, probably secondary to pain and swelling. Otherwise, her muscle strength is 5/5 throughout. Her cranial nerves: II-XII are grossly intact. There is some recent decrease in sensation of the right upper extremity, especially around the area of erythema. No sensory loss elsewhere. LABORATORY DATA: WBC 11.8, hemoglobin 11.5, hematocrit 33.4, platelet count is 278. Fasting glucose 168, BUN 15, creatinine 0.50, sodium is 136, potassium 3.4, chloride 102, carbon dioxide 23. Her INR is 4.38. CRP is 18.2. Ultrasound of the left lower extremity was completed on 05/15/2016, which showed no evidence of deep vein thrombosis (DVT) in the left femoral-popliteal venous system. X-ray of the left knee shows severe degenerative changes. Her right hand x-ray showed no acute disease. ASSESSMENT AND PLAN: This is a 75-year-old female with cellulitis of the right wrist. 1. We are admitting the patient to the medical unit for further evaluation and stabilization. We are starting the patient on intravenous (IV) antibiotics, vancomycin, for her right wrist cellulitis. Her blood cultures are currently pending. The patient has a mild hypokalemia, and we will be replacing her potassium. 2. Leukocytosis. Currently her WBC is at 11.8. We will continue to trend on a daily basis. Probably secondary to her acute cellulitis. 3. The patient has a history of aortic valve replacement. Is currently on Coumadin for anticoagulation. She is supratherapeutic at the moment with an INR of 4.38. We will hold the Coumadin at this time and recheck her INR tomorrow. 4. History of osteoarthritis. We will continue on her home medications for pain. She does not appear to be in any increased pain at this moment. 5. Gastroesophageal reflux disease. We will continue her on her home medications, Nexium. The plan was discussed with the patient in the room. She was agreeable to being admitted to the medical unit. She had no further questions or concerns. My preceptor for this patient encounter was Dr. Nael Serrano. The preceptor was physically present in the building during the encounter and was fully available as needed. All aspects of the patient interview, examination, medical decision making process, and medical care plan development were reviewed and approved by the preceptor. The preceptor is aware and concurs with the plan as stated in the body of this note and will attest to such by his/her co-signature. Attending Note: I was present for discussion and assisted with the development of the treatment plan for the patient above. The Resident was given guidance and the patient will be followed appropriately by an attending physician during the remaining hospital stay. FAUSTINO
--- NOTE | 2016-05-16 13:58 | IPNPDOC ---
Date Seen The patient was seen on 05/16/16. Progress Note SUBJECTIVE: Patient complains of right wrist pain but is improving she denies fevers chills chest pain shortness of breath nausea vomiting or diarrhea OBJECTIVE PHYSICAL EXAMINATION: VITAL SIGNS: MAXIMUM TEMPERATURE 100 Please see below. GENERAL: Pleasant disheveled elderly female sitting in bed she does not appear to be in any acute distress appears somewhat tired HEENT: Pupils equally round reactive to light she has moist pedis membranes elevation CVP CARDIOVASCULAR: S1-S2 regular. RESPIRATORY: Clear to auscultation. ABDOMINAL: Obese bowel sounds present abdomen soft EXTREMITIES: Right wrist is erythematous swollen tender decreased range of motion secondary to pain she has a superficial abrasion to her lateral dorsum of her fifth digit, trace edema on the left lower extremity LABORATORY DATA: Resolved leukocytosis persistent anemia, hypokalemia, elevated INR 6.3 Please see below. MICROBIOLOGY: Blood cultures pulmonary positive gram-positive cocci in chains to to 2 bottles Please see below. IMAGING: Duplex ultrasound reveals no evidence of DVT on the left Left knee film revealed severe degenerative osteoarthritis vascular calcifications 3 compartment osteoarthritis Right hand plain film reveals severe degenerative osteoarthritis of the fingers metacarpals and thumb probably some scapholunate disassociation DVT prophylaxis ordered?: Supratherapeutic INR ASSESSMENT AND PLAN: This is a 75-year-old female with right hand cellulitis. PROBLEMS: 1. Right hand cellulitis: Superficial abrasion likely represents a break in the skin swelling erythema and tenderness over the last 2 days. The patient is currently on vancomycin she has positive blood cultures are we'll repeat another blood culture today I will check an echocardiogram follow up sensitivities and narrow antibiotic spectrum as appropriate. Given that she has Bactrim I'll also check an MRI of the right hand to rule out any osteomyelitis. She is on Percocet for pain control. 2. Anemia: We'll check iron studies patient is status post aortic valve replacement she may have breakdown of RBCs secondary to this we'll rule out other etiologies. 3. Aortic valve disease: As well as post replacement currently her Coumadin is supratherapeutic we'll give her small doses of vitamin K by mouth and monitor her INR daily. 4. Coronary artery disease: The patient is on aspirin and beta amber and statin 5. Hypertension the patient is on a beta amber and Aldactone. Her chlorthalidone is currently on hold. 6. Spinal stenosis: The patient has chronic pain she is on tramadol and Percocet 7. Gastric esophageal reflux disease: The patient is on Protonix DISPOSITION: We'll continue to monitor her closely. VS, I&O, 24H, Mary Vital Signs/I&O Vital Signs Date Time Temp Pulse Resp B/P Pulse Ox O2 Delivery O2 Flow Rate FiO2 05/16/16 12:21 16 05/16/16 09:00 74 130/74 05/16/16 06:00 99.1 95 Room Air I&O- Last 24 Hours up to 6 AM 05/16/16 05:59 Intake Total 360 ml Output Total 0 ml Balance 360 ml Laboratory Data 24H LABS Laboratory Tests 2 05/15/16 20:55: Activated Partial Thromboplast Time 82.1H, Anion Gap 11, White Blood Count 11.8H , Red Blood Count 3.63L, Hemoglobin 11.5L, Hematocrit 33.4L, Mean Corpuscular Volume 92.1, Mean Corpuscular Hemoglobin 31.6, Mean Corpuscular Hemoglobin Concent 34.3, Red Cell Distribution Width 14.8H, Platelet Count 278, Neutrophils (%) (Auto) 77.9H, Lymphocytes (%) (Auto) 14.1L, Monocytes (%) (Auto ) 6.2H, Eosinophils (%) (Auto) 0.4, Basophils (%) (Auto) 0.2, Neutrophils # ( Auto) 9.2H, Lymphocytes # (Auto) 1.8, Monocytes # (Auto) 0.7, Eosinophils # ( Auto) 0.0, Basophils # (Auto) 0.0, C-Reactive Protein, Quantitative 18.20H, Blood Urea Nitrogen 15, Creatinine 0.50L, Sodium Level 136, Potassium Level 3.4L , Chloride Level 102, Carbon Dioxide Level 23, Calcium Level 9.5, Glomerular Filtration Rate > 60.0, Large Unclassified Cells # 0.1, Large Unclassified Cells % 1.2, Prothromb Time International Ratio 4.38, Prothrombin Time 41.8H 05/16/16 06:28: Anion Gap 10, White Blood Count 8.2, Red Blood Count 3.32L, Hemoglobin 10.4L, Hematocrit 30.8L, Mean Corpuscular Volume 92.8, Mean Corpuscular Hemoglobin 31.4 , Mean Corpuscular Hemoglobin Concent 33.8, Red Cell Distribution Width 14.8H, Platelet Count 241, Neutrophils (%) (Auto) 67.5H, Lymphocytes (%) (Auto) 21.7L, Monocytes (%) (Auto) 7.8H, Eosinophils (%) (Auto) 0.8, Basophils (%) (Auto) 0.3 , Neutrophils # (Auto) 5.5, Lymphocytes # (Auto) 1.9, Monocytes # (Auto) 0.6, Eosinophils # (Auto) 0.1, Basophils # (Auto) 0.0, C-Reactive Protein, Quantitative 18.00H, Blood Urea Nitrogen 14, Creatinine 0.52L, Sodium Level 139 , Potassium Level 3.3L, Chloride Level 104, Carbon Dioxide Level 25, Calcium Level 9.0, Glomerular Filtration Rate > 60.0, Large Unclassified Cells # 0.2, Large Unclassified Cells % 1.9, Prothromb Time International Ratio 6.30*H, Prothrombin Time 55.4H CBC/BMP Laboratory Tests 05/15/16 20:55 Calcium Level 9.5, Red Blood Count 3.63 L, Mean Corpuscular Volume 92.1, Mean Corpuscular Hemoglobin 31.6, Mean Corpuscular Hemoglobin Concent 34.3, Red Cell Distribution Width 14.8 H, Neutrophils (%) (Auto) 77.9 H, Lymphocytes (%) (Auto ) 14.1 L, Monocytes (%) (Auto) 6.2 H, Eosinophils (%) (Auto) 0.4, Basophils (%) (Auto) 0.2, Neutrophils # (Auto) 9.2 H, Lymphocytes # (Auto) 1.8, Monocytes # ( Auto) 0.7, Eosinophils # (Auto) 0.0, Basophils # (Auto) 0.0 05/16/16 06:28 Calcium Level 9.0, Red Blood Count 3.32 L, Mean Corpuscular Volume 92.8, Mean Corpuscular Hemoglobin 31.4, Mean Corpuscular Hemoglobin Concent 33.8, Red Cell Distribution Width 14.8 H, Neutrophils (%) (Auto) 67.5 H, Lymphocytes (%) (Auto ) 21.7 L, Monocytes (%) (Auto) 7.8 H, Eosinophils (%) (Auto) 0.8, Basophils (%) (Auto) 0.3, Neutrophils # (Auto) 5.5, Lymphocytes # (Auto) 1.9, Monocytes # ( Auto) 0.6, Eosinophils # (Auto) 0.1, Basophils # (Auto) 0.0 Microbiology Microbiology 05/15/16 Blood Culture - Preliminary, Resulted 05/15/16 Blood Culture - Preliminary, Resulted GER CRUM MD May 16, 2016 13:58
[2016-05-16 14:00] VITALS: BP 142/66
[2016-05-16 14:23] LABS: RETIC HEMOGLOBIN CONTENT CHr 29.4 PG (24-36); RETICULOCYTE % ADVIA2120 2.5 % (0.5-1.5)
[2016-05-16 15:10] LABS: PERCENT SATURATION 9.6 % (13.2-37.4)
[2016-05-16] MEDS: MORPHINE 2 MG/ML 1ML SYRINGE IV PRN (17:17)
[2016-05-16] MEDS: PERCOCET 5MG/325MG TAB PO PRN (19:56)
[2016-05-16 22:00] VITALS: BP 153/70
[2016-05-17] MEDS ORDERED: VANCOMYCIN HCL 750 MG, VIAL MATE ADAPTER 1 EACH in D5W 250 ML IV SCH ×3
[2016-05-17 06:00] VITALS: BP 140/75
[2016-05-17] MEDS: traMADol 50 MG TAB PO PRN ×2 (06:17→14:08)
[2016-05-17 07:14] LABS: BASO % 0.2 % (0.0-1.0); EOS # 0.1 K/mm3 (0.0-0.50); LARGE UNSTAINED CELL # 0.2 K/mm3 (0.0-0.4); LYMPH % 23.6 % (24.0-44.0); MEAN CORPUSCULAR HEMOGLOBIN 30.9 pg (27.0-33.0); MEAN CORPUSCULAR HGB CONC 32.8 g/dl (32.0-36.5); MEAN CORPUSCULAR VOLUME 94.3 fl (80.0-96.0); MONO # 0.5 K/mm3 (0.0-0.8); MONO % 6.4 % (0.0-5.0); NEUTROPHILS # 5.2 K/mm3 (1.8-7.7); NEUTROPHILS % 66.9 % (36.0-66.0); PLATELET COUNT, AUTOMATED 262 k/mm3 (150-450); RED CELL DISTRIBUTION WIDTH 14.8 % (11.5-14.5); WHITE BLOOD COUNT 7.8 K/mm3 (4.0-10.0)
[2016-05-17 07:15] LABS: ANION GAP 10 MEQ/L (8-16); BLOOD UREA NITROGEN 14 MG/DL (7-18); CALCIUM LEVEL 9.5 MG/DL (8.8-10.2); CARBON DIOXIDE LEVEL 24 MEQ/L (21-32); CHLORIDE LEVEL 103 MEQ/L (98-107); CREATININE FOR GFR 0.49 MG/DL (0.55-1.02); GLOMERULAR FILTRATION RATE > 60.0 (>39); GLUCOSE, FASTING 145 MG/DL (83-110); SODIUM LEVEL 137 MEQ/L (136-145)
[2016-05-17 07:23] LABS: INR 1.95
[2016-05-17] MEDS: MORPHINE 2 MG/ML 1ML SYRINGE IV PRN (10:13)
[2016-05-17] MEDS: SPIRONOLACTONE 12.5MG PER 1/2 TABLET PO SCH (10:16)
[2016-05-17] MEDS: ASPIRIN 81 MG ENTERIC TAB PO SCH (10:16)
[2016-05-17] MEDS: PANTOPRAZOLE 40MG TAB (PROTONIX) PO SCH (10:16)
[2016-05-17] MEDS: METOPROLOL SUCC (TopROL XL) 50MG **XL** TAB PO SCH (10:17)
[2016-05-17] MEDS: PERCOCET 5MG/325MG TAB PO PRN ×3 (11:14→23:52)
[2016-05-17] MEDS: ACETAMINOPHEN 650MG ER TAB (TYLENOL ARTHRITIS) PO PRN (12:57)
[2016-05-17] MEDS: VANCOMYCIN HCL 1,000 MG, VIAL MATE ADAPTER 1 EACH in D5W 250 ML IV SCH ×2 (12:57→23:51)
[2016-05-17 14:00] VITALS: BP 116/63
[2016-05-17] MEDS: IBUPROFEN 400 MG TAB PO SCH ×3 (14:00→22:00)
--- NOTE | 2016-05-17 14:39 | IPNPDOC ---
Date Seen The patient was seen on 05/17/16. Progress Note SUBJECTIVE: Patient complains of right wrist pain she states it is not improved from yesterday, she is tearful during exam. OBJECTIVE PHYSICAL EXAMINATION: VITAL SIGNS: MAXIMUM TEMPERATURE 99.5 Please see below. GENERAL: Pleasant disheveled elderly female sitting in bed she does not appear to be in any acute distress, she is emotionally labile HEENT: Pupils equally round reactive to light she has moist pedis membranes elevation CVP CARDIOVASCULAR: S1-S2 regular. RESPIRATORY: Clear to auscultation. ABDOMINAL: Obese bowel sounds present abdomen soft EXTREMITIES: Right wrist is erythematous swollen tender decreased range of motion secondary to pain she has a superficial abrasion to her lateral dorsum of her fifth digit not significantly improved from previous days exam, trace edema on the left lower extremity LABORATORY DATA: Please see below. MICROBIOLOGY: Blood cultures pulmonary positive gram-positive cocci in chains to to 2 bottles Please see below. IMAGING: Duplex ultrasound reveals no evidence of DVT on the left Left knee film revealed severe degenerative osteoarthritis vascular calcifications 3 compartment osteoarthritis Right hand plain film reveals severe degenerative osteoarthritis of the fingers metacarpals and thumb probably some scapholunate disassociation DVT prophylaxis ordered?: Supratherapeutic INR on admission ASSESSMENT AND PLAN: This is a 75-year-old female with right hand cellulitis. PROBLEMS: 1. Right hand cellulitis: Superficial abrasion likely represents a break in the skin. . The patient is currently on vancomycin she has positive blood cultures awaiting an echocardiogram and MRI of the hand to r/o osteo. Will adjust her pain meds, will place pain management cons. I did spend significant amount of time bedside answering all questions to the patients satisfaction, I also did call her son who is a DMAIÁN Roy [phone] and update him as well regarding her current care. 2. Anemia: appears to be Fe def anemia, will start her on ferrous sulfate. 3. Aortic valve disease: As well as post replacement, her Coumadin was supratherapeutican we did give her small doses of vitamin K by mouth and monitor her INR daily. 4. Coronary artery disease: The patient is on aspirin and beta amber and statin 5. Hypertension the patient is on a beta amber and Aldactone. Her chlorthalidone is currently on hold. 6. Spinal stenosis: The patient has chronic pain she is on tramadol and Percocet 7. Gastric esophageal reflux disease: The patient is on Protonix DISPOSITION: We'll continue to monitor her closely. VS, I&O, 24H, Mary Vital Signs/I&O Vital Signs Date Time Temp Pulse Resp B/P Pulse Ox O2 Delivery O2 Flow Rate FiO2 05/17/16 14:08 16 05/17/16 10:17 82 140/75 05/17/16 06:00 98.8 92 Room Air I&O- Last 24 Hours up to 6 AM 05/17/16 06:00 Intake Total 710 ml Output Total 1700 ml Balance -990 ml Laboratory Data 24H LABS Laboratory Tests 2 05/17/16 06:40: Anion Gap 10, White Blood Count 7.8, Red Blood Count 3.69L, Hemoglobin 11.4L, Hematocrit 34.8L, Mean Corpuscular Volume 94.3, Mean Corpuscular Hemoglobin 30.9 , Mean Corpuscular Hemoglobin Concent 32.8, Red Cell Distribution Width 14.8H, Platelet Count 262, Neutrophils (%) (Auto) 66.9H, Lymphocytes (%) (Auto) 23.6L, Monocytes (%) (Auto) 6.4H, Eosinophils (%) (Auto) 1.0, Basophils (%) (Auto) 0.2 , Neutrophils # (Auto) 5.2, Lymphocytes # (Auto) 2.0, Monocytes # (Auto) 0.5, Eosinophils # (Auto) 0.1, Basophils # (Auto) 0.0, C-Reactive Protein, Quantitative 17.20H, Blood Urea Nitrogen 14, Creatinine 0.49L, Sodium Level 137 , Potassium Level 4.0#, Chloride Level 103, Carbon Dioxide Level 24, Calcium Level 9.5, Glomerular Filtration Rate > 60.0, Large Unclassified Cells # 0.2, Large Unclassified Cells % 2.0, Prothromb Time International Ratio 1.95, Prothrombin Time 22.3H 05/17/16 11:07: Vancomycin Level Trough 7.7L CBC/BMP Laboratory Tests 05/17/16 06:40 Calcium Level 9.5, Red Blood Count 3.69 L, Mean Corpuscular Volume 94.3, Mean Corpuscular Hemoglobin 30.9, Mean Corpuscular Hemoglobin Concent 32.8, Red Cell Distribution Width 14.8 H, Neutrophils (%) (Auto) 66.9 H, Lymphocytes (%) (Auto ) 23.6 L, Monocytes (%) (Auto) 6.4 H, Eosinophils (%) (Auto) 1.0, Basophils (%) (Auto) 0.2, Neutrophils # (Auto) 5.2, Lymphocytes # (Auto) 2.0, Monocytes # ( Auto) 0.5, Eosinophils # (Auto) 0.1, Basophils # (Auto) 0.0 Microbiology Microbiology 05/17/16 Blood Culture, Received Pending 05/16/16 Blood Culture - Preliminary, Resulted No growth after 24 hours . All specim... 05/15/16 Blood Culture - Preliminary, Resulted 05/15/16 Blood Culture - Preliminary, Resulted GER CRUM MD May 17, 2016 14:39
[2016-05-17 15:03] LABS: ERYTHROCYTE SEDIMENTATION RATE 106 mm/hr (0-30)
[2016-05-17] MEDS: FERROUS GLUCONATE 324 MG TAB PO SCH (15:25)
[2016-05-17] MEDS: LIDOCAINE 2% JELLY 30 ML TOP PRN (16:52)
[2016-05-17] MEDS: WARFARIN SOD 3 MG TAB PO SCH (16:58)
--- NOTE | 2016-05-17 18:11 | CR ---
DATE OF CONSULTATION: 05/17/2016 CHIEF COMPLAINT: Right hand/wrist pain. HISTORY OF PRESENT ILLNESS: Laureen is a 75-year-old female who has been complaining of worsening right hand pain and swelling since 3 days prior to admission. It should be noted she was hospitalized in March for pneumonia for 2 days. Denies any injury to the right hand. She is right-hand dominant. She states that she did not have any IVs in her hand during that hospital stay. Rating pain level as a medium. This is 1 hour after two Percocet 5/325. Did state that earlier today she was crying in pain. Discussed medication and treatment options. She suffers from generalized joint pain of arthritis. She has been on tramadol at home. Denies bowel or bladder incontinence. States she was very independent up until hospital stay for pneumonia in March. PAST MEDICAL HISTORY: 1. Osteoarthritis of multiple joints, including knees, ankles, feet, hands. 2. Spinal stenosis. 3. Aortic valve dysfunction status post aortic valve replacement. 4. History of previous myocardial infarction status post coronary artery bypass graft. 5. Hypertension. 6. Hiatal hernia. PAST SURGICAL HISTORY 1. Left total hip. 2. Right total hip. 3. Cholecystectomy. 4. Right and left knee arthroscopy. 5. Bilateral carpal tunnel release. 6. Aortic valve replacement. 7. Coronary artery bypass graft (CABG). FAMILY HISTORY: Father had heart disease. Also had valve replacement. Mother had heart disease. The patient has a brother who has a mechanical valve. SOCIAL HISTORY: Denies smoke smoking. Denies alcohol use. Denies recreational use. She lives independently. ALLERGIES: Anaphylactic reaction to HEPARIN. REVIEW OF SYSTEMS: CONSTITUTIONAL: Denies fever or weight changes. HEENT: Denies headaches. Denies sore throat or nasal congestion. CARDIOVASCULAR: Denies chest pain or shortness of breath. RESPIRATORY: Denies cough or history of chronic bronchitis. GASTROINTESTINAL: Denies abdominal pain. Reporting normal bowel movements. GENITOURINARY: Denies urinary incontinence, dysuria, or hematuria. MUSCULOSKELETAL: Admits to joint pain in shoulders back, knees, wrists, hands, and feet. Admits to intermittent swelling of the left and also right wrist swelling. NEUROLOGIC: Occasional numbness and tingling in the right upper extremity. Denies seizure disorder. HEMATOLOGIC: She is on chronic Coumadin therapy at home. Denies chronic anemia. ENDOCRINE: Positive for diabetes, which is diet controlled. PHYSICAL EXAMINATION: Awake, alert, pleasant. VITAL SIGNS: 98.6, 81, 18, blood pressure (BP) 116/63, oxygen saturation 95% on room air. ALLERGIES: Heparin, anaphylaxis. CARDIAC: S1, S2. Normal rate and rhythm. RESPIRATORY: Lung sounds clear. Respirations nonlabored. Inspection of right hand with obvious swelling and redness. This is painful to light touch. ASSESSMENT: 1. Right hand cellulitis. 2. Chronic generalized arthropathy. PLAN: I would recommend a trial of tramadol on a scheduled basis, one tablet four times a day. Continue use of Percocet two tablets every 4 hours as needed, not every 6, as needed for severe pain episodes. May consider use of intermittent IV morphine 2 mg should her pain get out of control with the above plan. Thank you for allowing us to participate in the care of your patient, Laureen Bruce. Should you have any questions or concerns, please do not hesitate to contact me.
--- NOTE | 2016-05-17 21:13 | ECHO ---
DATE OF PROCEDURE: 05/17/2016 REFERRING PHYSICIAN: Lester Tenorio MD INDICATION: Fever. HEIGHT: 158 cm WEIGHT: 82 kg MEASUREMENTS: Ventricular septum: 1.16 cm Posterior wall: 1.12 cm Left ventricle diastole: 4.2 cm Left atrium: 4.8 cm Aortic root: 3.0 cm Inferior vena cava: 2.4 cm DOPPLER MEASUREMENTS: Aortic valve velocity: 226 cm/s LVOT velocity: 59.4 cm/s Very mild mitral regurgitation. No mitral stenosis. Mitral E velocity: 81.4 cm/s Mitral A velocity: 107 cm/s Mitral deceleration time: 303 ms Mild tricuspid regurgitation. Estimated right ventricle systolic pressure 29 mmHg assuming a right atrial pressure of 5 mmHg. DESCRIPTION: Rhythm was sinus with frequent premature ventricular contractions (PVCs). This is a moderately technically difficult echocardiogram. No pericardial effusion. This is a 2D, M-mode, color flow Doppler and pulse wave Doppler examination that included mitral annular tissue Doppler. CONCLUSIONS: 1. Well-seated and normally functioning aortic valve bioprosthesis. No aortic regurgitation. 2. Normal left ventricle internal dimensions and wall thickness. Normal left ventricle (LV) wall motion and wall thickening. Normal LV systolic function. Left ventricular ejection fraction (LVEF) 65% by visual estimate. Grade 1 LV diastolic dysfunction (impaired relaxation filling pattern). 3. Moderate mitral annular calcification. Very mild mitral regurgitation. No mitral stenosis. 4. Moderate left atrial dilatation. 5. No vegetations seen on any of the cardiac valves.
[2016-05-17 22:00] VITALS: BP 132/65
[2016-05-17] MEDS: ATORVASTATIN 20 MG TAB PO SCH (23:51)
[2016-05-17] MEDS: MAGNESIUM OXIDE 400 MG TAB (MAG-OX) PO SCH (23:52)
[2016-05-18] MEDS: traMADol 50 MG TAB PO PRN ×2 (01:25→06:44)
[2016-05-18] MEDS: LIDOCAINE 2% JELLY 30 ML TOP PRN (01:26)
[2016-05-18] MEDS: IBUPROFEN 400 MG TAB PO SCH ×3 (02:00→22:00)
--- NOTE | 2016-05-18 02:05 | EDDOCDS ---
Nurse's Notes [facility] Name: Laureen Bruce Age: 75 yrs Sex: Female : 1940 Arrival Date: 05/15/2016 Time: 19:34 Bed 5 Private MD: Grecia Jimenez Diagnosis: Cellulitis of right upper limb;Pain in left knee;Difficulty in walking, not elsewhere classified Presentation: 05/15 19:37 Presenting complaint: EMS states: Patient found sitting in her chair by neighbour kas2 unable to walk or move. Neighbour has been coming over assisting patient to bathroom for about a week. History of arthritis. Bilateral knee swelling. Bilateral hand swelling. Refused FSBS. Adult Sepsis Screening: The patient does not have new or worsening altered mentation. Patient's respiratory rate is less than 22. Systolic blood pressure is greater than 100. Patient has a qSOFA score of 0- Negative Sepsis Screen. Suicide/Homicide risk assessment- the patient denies having any suicidal and/or homicidal ideations and does not present with any other emotional, behavioral or mental health complaints. Status: Patient is not a service center representative or dependent. Transition of care: patient was not received from another setting of care. 19:37 Acuity: FRANKY Level 3 [facility] 19:37 Method Of Arrival: Ambulance [facility] Triage Assessment: 19:53 General: Appears in no apparent distress, uncomfortable, well nourished, well groomed, kas2 Behavior is appropriate for age, cooperative. Pain: Location: right knee, left knee and both hands Pain currently is 8 out of 10 on a pain scale. Neurological: Level of Consciousness is awake, alert, Oriented to person, place, time. Cardiovascular: Capillary refill < 3 seconds Heart tones S1 S2 present Rhythm is regular. Respiratory: Airway is patent Respiratory effort is even, unlabored, Respiratory pattern is regular, symmetrical, Breath sounds are clear bilaterally. GI: Abdomen is obese, Bowel sounds present X 4 quads. Abd is soft and non tender X 4 quads. Derm: Skin is intact, Skin is dry, Skin is pink, warm & dry. Skin temperature is warm. Musculoskeletal: Circulation, motion, and sensation intact Capillary refill < 3 seconds Range of motion limited in all extremities. Historical: - Allergies: Heparin (Anaphylaxis); - Home Meds: 1. aspirin 81 mg Oral tab 1 tab once daily (Last dose: 05/15/2016 08:00) 2. atorvastatin 40 mg oral tab 1 tab nightly 3. Chlorthalidone 12.5 mg Oral 1 tab every -- 4. Coumadin 4 mg Oral tab 1 tab once daily (Last dose: 05/15/2016 19:00) 5. meclizine 25 mg Oral cap as needed as needed 6. metoprolol succinate 50 mg tab 1 tab once daily 7. Nexium 40 mg Oral cpDR 1 cap once daily 8. nitroglycerin 0.4 mg SL subl 1 tab every 5 minutes x 3 as needed 9. spironolactone 12.5mg Oral tab 1 tab once daily (Last dose: 05/15/2016 08:00) 10. tramadol 50 mg Oral tab 1 tab every 4-6 hours as needed (Last dose: 05/15/2016 17:00) - PMHx: Diabetes - NIDDM: uncontrolled; GERD; Hiatal Hernia; Hypercholesterolemia; Hypertension; [place]; - PSHx: Carpal Tunnel Repair- Bilateral; Cholecystectomy; Arthroscopy, Knee- Left; Arthroscopy, Knee- Right; CABG; - Social history: Smoking status: Patient states was never smoker of tobacco. No barriers to communication noted, The patient speaks fluent Chilean. - Family history: No immediate family members are acutely ill. - : The pt / caregiver states he / she is not on anticoagulants. Home medication list is obtained from the patient. - Exposure Risk Screening:: None identified. Screenin:08 Screening information is obtained from the patient. Fall risk: No risks identified. kas2 Assistance ADL's: requires no assistance with activities of daily living. Abuse/DV Screen: The patient / caregiver reports he/she is: not in a situation that causes fear, pain or injury. Nutritional screening: No deficits noted. Advance Directives: Currently, there is no health care proxy. There is no active DNR order. There is no living will. There is no Power of Metal Pickling Equipment Operator. home support is adequate. Assessment: 19:56 General: See triage note.. kas2 21:08 General: Appears in no apparent distress, uncomfortable, Behavior is appropriate for kas2 age, cooperative. Pain: Location: right leg and right knee Pain currently is 6 out of 10 on a pain scale. Neurological: Level of Consciousness is awake, alert, Oriented to person, place, time. Cardiovascular: Rhythm is regular. Respiratory: No deficits noted. Airway is patent Respiratory effort is even, unlabored, Respiratory pattern is regular, symmetrical. Derm: Skin is intact, Skin is dry, Skin is pink, warm & dry. Skin temperature is warm. 22:01 General: Appears in no apparent distress, comfortable, well nourished, well groomed, kas2 Behavior is appropriate for age, cooperative. Pain: Location: right leg and right knee Pain At worst was 5 out of 10 on a pain scale. Neurological: Level of Consciousness is awake, alert, Oriented to person, place, time. Cardiovascular: Rhythm is regular. Respiratory: Airway is patent Respiratory effort is even, unlabored, Respiratory pattern is regular, symmetrical. Derm: Skin is intact, Skin is dry, Skin is pink, warm & dry. Skin temperature is warm. 22:45 General: Appears in no apparent distress, comfortable, Behavior is appropriate for age, nn1 cooperative. Neurological: Level of Consciousness is awake, alert, Oriented to person, place, time. Respiratory: Airway is patent Respiratory effort is even, unlabored, Respiratory pattern is regular, symmetrical. Derm: Skin is pink, warm & dry. 22:46 General: antibiotics infusing per order, patient on monitor. . nn1 23:43 General: Patient assisted to bedside commode. Antibiotics infusion completed. Patient nn1 reports no relief of pain in right hand, states hand is tingling, states this is no change from prior to entering ED. . 05/16 00:34 General: Appears in no apparent distress, Patient reporting pain, hospitalist aware. . nn1 Respiratory: Airway is patent Respiratory effort is even, unlabored, Respiratory pattern is regular, symmetrical. 00:39 General: SBAR sent to [facility]pratt. nn1 Vital Signs: 05/15 19:53 BP 134 / 82; Pulse 82; Resp 18; Temp 99.4(O); Pulse Ox 95% on R/A; Weight 78.02 kg; kas2 Height 5 ft. 2 in. (157.48 cm); Pain 8/10; 22:38 BP 138 / 61 (auto/); nn1 22:38 Pulse 84 MON; Pulse Ox 96% ; nn1 22:38 Resp 18; nn1 05/16 00:38 BP 161 / 74; Pulse 87; Resp 18; Temp 98.8(TE); Pulse Ox 96% on R/A; Pain 3/10; nn1 02 19:53 Body Mass Index 31.46 (78.02 kg, 157.48 cm) [facility] Vitals: 05/15 19:53 Log In Time N/A - ambulance arrival. [facility] ED Course: 19:36 Patient visited by Lora Watson PCA. tmm1 19:36 Patient moved to Waiting tmm1 19:37 Grecia Jimenez is Private Physician. tmm1 19:37 Lily Pena RN is Primary Nurse. tmm1 19:37 Roxana Solomon RN is Primary Nurse. tmm1 19:37 Patient moved to 5 tmm1 19:46 Triage Initiated kas2 20:04 Onel Beard DO is Attending Physician. mm11 20:04 Patient visited by Onel Beard DO. mm11 20:19 Patient visited by Onel Beard DO. mm11 20:47 Patient moved to Ultrasound en 20:53 Patient moved to 5 en 20:56 Patient visited by Onel Beard DO. mm11 21:07 BLOOD CULTURES Sent. kas2 21:08 Inserted saline lock: 20 gauge in left antecubital area and blood collected. The [facility] patient tolerated the procedure well. No procedures done that require assistance. 21:09 Patient visited by Roxana Solomon RN. kas2 21:13 [facility] Payment Agreement was scanned into [employer] and attached to record. gjb 21:14 Patient moved to Ultrasound en 21:36 Patient moved to 5 en 22:03 Patient visited by Roxana Solomon RN. kas2 22:04 DVT US Lower Returned. EDMS 22:14 Patient visited by Roxana Solomon RN. kas2 22:44 Patient visited by Onel Beard DO. mm11 23:15 Nael Serrano DO is Hospitalizing Provider. mm11 05/16 00:46 Primary Nurse role handed off by Lily Pena RN sls1 00:52 The patient / caregiver is instructed regarding the plan of care and ED course. nn1 11:52 T-Sheet-- Draft Copy was scanned into [employer] and attached to record. gb 11:52 Radiology Report was scanned into [employer] and attached to record. gb Administered Medications: 05/15 22:45 Drug: Piperacillin-Tazobactam 3.375 grams [piperacillin-tazobactam 3.375 gram nn1 intravenous solution] Route: IVPB; Infused Over: 30 mins; Site: left antecubital; 05/16 00:34 Follow up: IV Status: Completed infusion; IV Intake: 50ml nn1 05/15 22:45 Drug: fentaNYL (PF) 50 mcg [fentanyl (PF) 50 mcg/mL injection solution (1 mL)] Route: nn1 IVP; Site: left antecubital; Intake: 05/16 00:34 IV: 50.00ml; Total: 50.00ml. nn1 Order Results: Lab Order: CBC with Diff; SPEC'M 05/15/16 20:55 Test: WHITE BLOOD COUNT; Value: 11.8; Range: 4.0-10.0; Abnormal: Above high normal; Units: K/mm3; Status: F Test: RED BLOOD COUNT; Value: 3.63; Range: 4.00-5.40; Abnormal: Below low normal; Units: M/mm3; Status: F Test: HEMOGLOBIN; Value: 11.5; Range: 12.0-16.0; Abnormal: Below low normal; Units: g/dl; Status: F Test: HEMATOCRIT; Value: 33.4; Range: 36.0-47.0; Abnormal: Below low normal; Units: %; Status: F Test: MEAN CORPUSCULAR VOLUME; Value: 92.1; Range: 80.0-96.0; Units: fl; Status: F Test: MEAN CORPUSCULAR HEMOGLOBIN; Value: 31.6; Range: 27.0-33.0; Units: pg; Status: F Test: MEAN CORPUSCULAR HGB CONC; Value: 34.3; Range: 32.0-36.5; Units: g/dl; Status: F Test: RED CELL DISTRIBUTION WIDTH; Value: 14.8; Range: 11.5-14.5; Abnormal: Above high normal; Units: %; Status: F Test: PLATELET COUNT, AUTOMATED; Value: 278; Range: 150-450; Units: k/mm3; Status: F Test: NEUTROPHILS %; Value: 77.9; Range: 36.0-66.0; Abnormal: Above high normal; Units: %; Status: F Test: LYMPH %; Value: 14.1; Range: 24.0-44.0; Abnormal: Below low normal; Units: %; Status: F Test: MONO %; Value: 6.2; Range: 0.0-5.0; Abnormal: Above high normal; Units: %; Status: F Test: EOS %; Value: 0.4; Range: 0.0-3.0; Units: %; Status: F Test: BASO %; Value: 0.2; Range: 0.0-1.0; Units: %; Status: F Test: LARGE UNSTAINED CELL %; Value: 1.2; Range: 0.0-4.0; Units: %; Status: F Test: NEUTROPHILS #; Value: 9.2; Range: 1.8-7.7; Abnormal: Above high normal; Units: K/mm3; Status: F Test: LYMPH #; Value: 1.8; Range: 1.5-4.5; Units: K/mm3; Status: F Test: MONO #; Value: 0.7; Range: 0.0-0.8; Units: K/mm3; Status: F Test: EOS #; Value: 0.0; Range: 0.0-0.50; Units: K/mm3; Status: F Test: BASO #; Value: 0.0; Range: 0.0-0.2; Units: K/mm3; Status: F Test: LARGE UNSTAINED CELL #; Value: 0.1; Range: 0.0-0.4; Units: K/mm3; Status: F Lab Order: [facility]; SPEC'M 05/15/16 20:55 Test: GLUCOSE, FASTING; Value: 168; Range: 83-110; Abnormal: Above high normal; Units: MG/DL; Status: F Test: BLOOD UREA NITROGEN; Value: 15; Range: 7-18; Units: MG/DL; Status: F Test: CREATININE FOR GFR; Value: 0.50; Range: 0.55-1.02; Abnormal: Below low normal; Units: MG/DL; Status: F Test: GLOMERULAR FILTRATION RATE; Value: > 60.0; Range: >39; Status: F Test: SODIUM LEVEL; Value: 136; Range: 136-145; Units: MEQ/L; Status: F Test: POTASSIUM SERUM; Value: 3.4; Range: 3.5-5.1; Abnormal: Below low normal; Units: MEQ/L; Status: F Test: CHLORIDE LEVEL; Value: 102; Range: 98-107; Units: MEQ/L; Status: F Test: CARBON DIOXIDE LEVEL; Value: 23; Range: 21-32; Units: MEQ/L; Status: F Test: ANION GAP; Value: 11; Range: 8-16; Units: MEQ/L; Status: F Test: CALCIUM LEVEL; Value: 9.5; Range: 8.8-10.2; Units: MG/DL; Status: F Test Note: ; Units are mL/min/1.73 m2 Chronic Kidney Disease Staging per NKF: Stage I & II GFR >=60 Normal to Mildly Decreased Stage III GFR 30-59 Moderately Decreased Stage IV GFR 15-29 Severely Decreased Stage V GFR <15 Very Little GFR Left ESRD GFR <15 on CARPET INSTALLATION SPECIALIST Lab Order: Pt & Aptt; SPEC'M 05/15/16 20:55 Test: PROTHROMBIN TIME; Value: 41.8; Range: 12.3-14.5; Abnormal: Above high normal; Units: SECONDS; Status: F Test: INR; Value: 4.38; Status: F Test: PARTIAL THROMBOPLASTIN TIME; Value: 82.1; Range: 26.6-37.1; Abnormal: Above high normal; Units: SECONDS; Status: F Test Note: ; THERAPUTIC HUMAN INR VALUES INDICATIONS NORMAL RANGES PROPHYLAXIS/TREATMENT OF: VENOUS THROMBOSIS 2.0-3.0 PULMONARY EMBOLISM 2.0-3.0 PREVENTION OF SYSTEMIC EMBOLISM FROM: TISSUE HEART VALVES 2.0-3.0 ACUTE MYOCARDIAL INFARCTION 2.0-3.0 VALVULAR HEART DISEASE 2.0-3.0 ATRIAL FIBRILLATION 2.0-3.0 MECHANICAL VALVES(HIGH RISK) 2.5-3.5 RECURRENT MYOCARDIAL INFARCTION 2.5-3.5 Lab Order: CRP; SPEC'05/15/16 20:55 Test: C REACTIVE PROTEIN QUANTITATIV; Value: 18.20; Range: 0.00-0.30; Abnormal: Above high normal; Units: MG/DL; Status: F Radiology Order: DVT US Lower Test: DVT US Lower REASON FOR EXAMINATION: Deformity/Swelling; ; Clinical history: Pain, swelling.; Findings: The left common femoral, superficial femoral, popliteal, and other deep venous structures c; ompress normally and demonstrate normal color Doppler flow. Normal venous waveforms with augmentation; are seen.; Impression:; No evidence of deep vein thrombosis in the left femoral popliteal venous system.; ; Outcome: 05/15 23:16 Decision to Hospitalize by Provider. mm11 05/16 00:51 Discharge Assessment: Patient awake, alert and oriented x 3. No cognitive and/or nn1 functional deficits noted. Patient verbalized understanding of disposition instructions. patient administered narcotics - yes. Patient was admitted to the hospital or transferred to another facility. The following High Risk Discharge criteria are identified: None. Admitted to Med/Surg accompanied by tech, via stretcher, with chart. Condition: unchanged. Ultrasound Study completed. Admission hand-off: Report called to DEN Kelly. Property :Personal belongings accompany Pt. 01:04 Patient left the ED. nn1 Signatures: Dispatcher [employer] EDMS Claudette Liang, Reg Reg Onel Guerrero, DO DO mm11 Janis Thakkar RN RN sls1 McLear, Lora, RECEIVING AND PROCESSING SUPERVISOR RECEIVING AND PROCESSING SUPERVISOR tmm1 Rebecca MolinaRN RN nn1 Fouzia Herrera Gabriela gjb Smith, Kim,RN RN kas2 Chart Complete MTDD
--- NOTE | 2016-05-18 02:05 | EDDOCDS ---
Physician Documentation [facility] Name: Laureen Bruce Age: 75 yrs Sex: Female : 1940 Arrival Date: 05/15/2016 Time: 19:34 Bed 5 Private MD: Grecia Jimenez Disposition: 05/15/16 23:16 Hospitalization ordered by Nael Serrano for Inpatient Admission. Preliminary diagnosis are Cellulitis of right upper limb, Pain in left knee, Difficulty in walking, not elsewhere classified. - Bed requested for 5 [place]. - Status is Inpatient Admission. nn1 - Condition is Stable. - Problem is an acute exacerbation. - Symptoms have improved. Historical: - Allergies: Heparin (Anaphylaxis); - Home Meds: 1. aspirin 81 mg Oral tab 1 tab once daily (Last dose: 05/15/2016 08:00) 2. atorvastatin 40 mg oral tab 1 tab nightly 3. Chlorthalidone 12.5 mg Oral 1 tab every -- 4. Coumadin 4 mg Oral tab 1 tab once daily (Last dose: 05/15/2016 19:00) 5. meclizine 25 mg Oral cap as needed as needed 6. metoprolol succinate 50 mg tab 1 tab once daily 7. Nexium 40 mg Oral cpDR 1 cap once daily 8. nitroglycerin 0.4 mg SL subl 1 tab every 5 minutes x 3 as needed 9. spironolactone 12.5mg Oral tab 1 tab once daily (Last dose: 05/15/2016 08:00) 10. tramadol 50 mg Oral tab 1 tab every 4-6 hours as needed (Last dose: 05/15/2016 17:00) - PMHx: Diabetes - NIDDM: uncontrolled; GERD; Hiatal Hernia; Hypercholesterolemia; Hypertension; [place]; - PSHx: Carpal Tunnel Repair- Bilateral; Cholecystectomy; Arthroscopy, Knee- Left; Arthroscopy, Knee- Right; CABG; - Social history: Smoking status: Patient states was never smoker of tobacco. No barriers to communication noted, The patient speaks fluent Faroese. - Family history: No immediate family members are acutely ill. - : The pt / caregiver states he / she is not on anticoagulants. Home medication list is obtained from the patient. - Exposure Risk Screening:: None identified. Vital Signs: 05/15 19:53 BP 134 / 82; Pulse 82; Resp 18; Temp 99.4(O); Pulse Ox 95% on R/A; Weight 78.02 kg / kas2 172 lbs; Height 5 ft. 2 in. (157.48 cm); Pain 8/10; 22:38 BP 138 / 61 (auto/); nn1 22:38 Pulse 84 MON; Pulse Ox 96% ; nn1 22:38 Resp 18; nn1 05/16 00:38 BP 161 / 74; Pulse 87; Resp 18; Temp 98.8(TE); Pulse Ox 96% on R/A; Pain 3/10; nn1 05/15 19:53 Body Mass Index 31.46 (78.02 kg, 157.48 cm) kas2 MDM: 05/15 20:21 IV Saline Lock ordered. mm11 20:21 -Blood Culture (Adults Only), peripheral from different site, or from device/port/PICC mm11 etc. if present ordered. 20:21 CBC with Diff Ordered. EDMS 20:21 BMP Ordered. EDMS 20:21 Pt & Aptt Ordered. EDMS 20:21 CRP Ordered. EDMS 20:22 -Blood Culture Ordered. EDMS 20:22 Hand, Complete Ordered. EDMS 20:22 Knee, (AP\E\Lat) Ordered. EDMS 20:22 DVT US Lower Ordered. EDMS 20:32 -Blood Culture (Adults Only), peripheral from different site, or from device/port/PICC tmm1 etc. if present complete. 20:33 BLOOD CULTURES Ordered. EDMS 21:09 Financial registration complete. gjb 21:13 [facility] Payment Agreement was scanned into [employer] and attached to record. gjb 21:51 CBC with Diff Reviewed. mm11 21:51 BMP Reviewed. mm11 21:51 Pt & Aptt Reviewed. mm11 21:51 CRP Reviewed. mm11 22:15 BED REQUEST+ADM ordered. EDMS 22:16 Piperacillin-Tazobactam 3.375 grams IVPB once over 30 mins; dilute in 50mL of NS or D5W mm11 ordered. 22:16 fentaNYL (PF) 50 mcg IVP once ordered. mm11 22:21 DVT US Lower Reviewed. mm11 22:53 Admission / Observation Status ordered. EDMS 05/16 00:48 CBC WITH DIFFERENTIAL Ordered. EDMS 00:48 BASIC METABOLIC PROFILE Ordered. EDMS 00:48 PROTHROMBIN TIME PROFILE\E\INR Ordered. EDMS 00:48 C REACTIVE PROTEIN QUANTITATIV Ordered. EDMS 00:49 PHYSICAL THERAPY EVAL & TREAT ordered. EDMS 00:49 CONSISTENT CARBOHYDRATES ordered. EDMS 11:52 T-Sheet-- Draft Copy was scanned into [employer] and attached to record. gb 11:52 Radiology Report was scanned into [employer] and attached to record. gb Administered Medications: 05/15 22:45 Drug: Piperacillin-Tazobactam 3.375 grams [piperacillin-tazobactam 3.375 gram nn1 intravenous solution] Route: IVPB; Infused Over: 30 mins; Site: left antecubital; 05/16 00:34 Follow up: IV Status: Completed infusion; IV Intake: 50ml nn1 05/15 22:45 Drug: fentaNYL (PF) 50 mcg [fentanyl (PF) 50 mcg/mL injection solution (1 mL)] Route: nn1 IVP; Site: left antecubital; Signatures: Dispatcher [id number] EDMS Claudette Liang, Reg Reg gb Onel Beard, DO mm11 Janis Thakkar, RN RN sls1 Lora Watson, WAITER/WAITRESS CAPTAIN WAITER/WAITRESS CAPTAIN tmm1 Rebecca Molina RN RN nn1 Ary Hoffman Kim,RN RN kas2 The chart was reviewed and I authenticate all verbal orders and agree with the evaluation and treatment provided.Attachments: 21:13 [facility] Payment Agreement gjb 05/16 11:52 T-Sheet-- Draft Copy gb Chart Complete MTDD
--- NOTE | 2016-05-18 02:05 | EDDOCDS ---
Physician Documentation [facility] Name: Laureen Bruce Age: 75 yrs Sex: Female : 1940 Arrival Date: 05/15/2016 Time: 19:34 Bed 5 Private MD: Grecia Jimenez Disposition: 05/15/16 23:16 Hospitalization ordered by Nael Serrano for Inpatient Admission. Preliminary diagnosis are Cellulitis of right upper limb, Pain in left knee, Difficulty in walking, not elsewhere classified. - Bed requested for 5 [place]. - Status is Inpatient Admission. nn1 - Condition is Stable. - Problem is an acute exacerbation. - Symptoms have improved. Historical: - Allergies: Heparin (Anaphylaxis); - Home Meds: 1. aspirin 81 mg Oral tab 1 tab once daily (Last dose: 05/15/2016 08:00) 2. atorvastatin 40 mg oral tab 1 tab nightly 3. Chlorthalidone 12.5 mg Oral 1 tab every -- 4. Coumadin 4 mg Oral tab 1 tab once daily (Last dose: 05/15/2016 19:00) 5. meclizine 25 mg Oral cap as needed as needed 6. metoprolol succinate 50 mg tab 1 tab once daily 7. Nexium 40 mg Oral cpDR 1 cap once daily 8. nitroglycerin 0.4 mg SL subl 1 tab every 5 minutes x 3 as needed 9. spironolactone 12.5mg Oral tab 1 tab once daily (Last dose: 05/15/2016 08:00) 10. tramadol 50 mg Oral tab 1 tab every 4-6 hours as needed (Last dose: 05/15/2016 17:00) - PMHx: Diabetes - NIDDM: uncontrolled; GERD; Hiatal Hernia; Hypercholesterolemia; Hypertension; WA; - PSHx: Carpal Tunnel Repair- Bilateral; Cholecystectomy; Arthroscopy, Knee- Left; Arthroscopy, Knee- Right; CABG; - Social history: Smoking status: Patient states was never smoker of tobacco. No barriers to communication noted, The patient speaks fluent Bulgarian. - Family history: No immediate family members are acutely ill. - : The pt / caregiver states he / she is not on anticoagulants. Home medication list is obtained from the patient. - Exposure Risk Screening:: None identified. Vital Signs: 05/15 19:53 BP 134 / 82; Pulse 82; Resp 18; Temp 99.4(O); Pulse Ox 95% on R/A; Weight 78.02 kg / kas2 172 lbs; Height 5 ft. 2 in. (157.48 cm); Pain 8/10; 22:38 BP 138 / 61 (auto/); nn1 22:38 Pulse 84 MON; Pulse Ox 96% ; nn1 22:38 Resp 18; nn1 05/16 00:38 BP 161 / 74; Pulse 87; Resp 18; Temp 98.8(TE); Pulse Ox 96% on R/A; Pain 3/10; nn1 05/15 19:53 Body Mass Index 31.46 (78.02 kg, 157.48 cm) kas2 MDM: 05/15 20:21 IV Saline Lock ordered. mm11 20:21 -Blood Culture (Adults Only), peripheral from different site, or from device/port/PICC mm11 etc. if present ordered. 20:21 CBC with Diff Ordered. EDMS 20:21 BMP Ordered. EDMS 20:21 Pt & Aptt Ordered. EDMS 20:21 CRP Ordered. EDMS 20:22 -Blood Culture Ordered. EDMS 20:22 Hand, Complete Ordered. EDMS 20:22 Knee, (AP\E\Lat) Ordered. EDMS 20:22 DVT US Lower Ordered. EDMS 20:32 -Blood Culture (Adults Only), peripheral from different site, or from device/port/PICC tmm1 etc. if present complete. 20:33 BLOOD CULTURES Ordered. EDMS 21:09 Financial registration complete. gjb 21:13 [facility] Payment Agreement was scanned into [employer] and attached to record. gjb 21:51 CBC with Diff Reviewed. mm11 21:51 BMP Reviewed. mm11 21:51 Pt & Aptt Reviewed. mm11 21:51 CRP Reviewed. mm11 22:15 BED REQUEST+ADM ordered. EDMS 22:16 Piperacillin-Tazobactam 3.375 grams IVPB once over 30 mins; dilute in 50mL of NS or D5W mm11 ordered. 22:16 fentaNYL (PF) 50 mcg IVP once ordered. mm11 22:21 DVT US Lower Reviewed. mm11 22:53 Admission / Observation Status ordered. EDMS 05/16 00:48 CBC WITH DIFFERENTIAL Ordered. EDMS 00:48 BASIC METABOLIC PROFILE Ordered. EDMS 00:48 PROTHROMBIN TIME PROFILE\E\INR Ordered. EDMS 00:48 C REACTIVE PROTEIN QUANTITATIV Ordered. EDMS 00:49 PHYSICAL THERAPY EVAL & TREAT ordered. EDMS 00:49 CONSISTENT CARBOHYDRATES ordered. EDMS 11:52 T-Sheet-- Draft Copy was scanned into [employer] and attached to record. gb 11:52 Radiology Report was scanned into [employer] and attached to record. gb Administered Medications: 05/15 22:45 Drug: Piperacillin-Tazobactam 3.375 grams [piperacillin-tazobactam 3.375 gram nn1 intravenous solution] Route: IVPB; Infused Over: 30 mins; Site: left antecubital; 05/16 00:34 Follow up: IV Status: Completed infusion; IV Intake: 50ml nn1 05/15 22:45 Drug: fentaNYL (PF) 50 mcg [fentanyl (PF) 50 mcg/mL injection solution (1 mL)] Route: nn1 IVP; Site: left antecubital; Signatures: Dispatcher [employer] EDMS Claudette Liang, Reg Reg gb Onel Beard, DO mm11 Janis Thakkar, RN RN sls1 Lora Watson, SHEEP FARMER SHEEP FARMER tmm1 Rebecca Molina RN RN nn1 Ary Hoffman Kim,RN RN kas2 The chart was reviewed and I authenticate all verbal orders and agree with the evaluation and treatment provided.Attachments: 21:13 [facility] Payment Agreement gjb 05/16 11:52 T-Sheet-- Draft Copy gb Chart Complete MTDD
[2016-05-18 06:47] LABS: BASO % 0.2 % (0.0-1.0); EOS # 0.1 K/mm3 (0.0-0.50); EOS % 1.5 % (0.0-3.0); LARGE UNSTAINED CELL # 0.2 K/mm3 (0.0-0.4); LARGE UNSTAINED CELL % 1.6 % (0.0-4.0); LYMPH % 19.9 % (24.0-44.0); MEAN CORPUSCULAR HEMOGLOBIN 30.3 pg (27.0-33.0); MEAN CORPUSCULAR HGB CONC 32.6 g/dl (32.0-36.5); MONO # 0.6 K/mm3 (0.0-0.8); MONO % 6.1 % (0.0-5.0); NEUTROPHILS # 6.6 K/mm3 (1.8-7.7); NEUTROPHILS % 70.7 % (36.0-66.0); PLATELET COUNT, AUTOMATED 285 k/mm3 (150-450); RED CELL DISTRIBUTION WIDTH 14.5 % (11.5-14.5); WHITE BLOOD COUNT 9.4 K/mm3 (4.0-10.0)
[2016-05-18 06:54] LABS: INR 1.65
[2016-05-18 07:00] LABS: ANION GAP 10 MEQ/L (8-16); BLOOD UREA NITROGEN 14 MG/DL (7-18); CARBON DIOXIDE LEVEL 26 MEQ/L (21-32); CHLORIDE LEVEL 100 MEQ/L (98-107); CREATININE FOR GFR 0.52 MG/DL (0.55-1.02); GLOMERULAR FILTRATION RATE > 60.0 (>39); GLUCOSE, FASTING 133 MG/DL (83-110); POTASSIUM SERUM 3.8 MEQ/L (3.5-5.1); SODIUM LEVEL 136 MEQ/L (136-145)
[2016-05-18 07:21] LABS: ERYTHROCYTE SEDIMENTATION RATE 118 mm/hr (0-30)
[2016-05-18 08:33] VITALS: BP 124/57
[2016-05-18] MEDS ORDERED: MORPHINE 2 MG/ML 1ML SYRINGE IV PRN (09:00)
[2016-05-18] MEDS: PERCOCET 5MG/325MG TAB PO PRN ×2 (09:15→15:32)
[2016-05-18] MEDS: PANTOPRAZOLE 40MG TAB (PROTONIX) PO SCH (09:24)
[2016-05-18] MEDS: METOPROLOL SUCC (TopROL XL) 50MG **XL** TAB PO SCH (09:24)
[2016-05-18] MEDS: SPIRONOLACTONE 12.5MG PER 1/2 TABLET PO SCH (09:24)
[2016-05-18] MEDS: FERROUS GLUCONATE 324 MG TAB PO SCH (09:24)
[2016-05-18] MEDS: ACETAMINOPHEN 650MG ER TAB (TYLENOL ARTHRITIS) PO PRN (09:25)
[2016-05-18] MEDS: ASPIRIN 81 MG ENTERIC TAB PO SCH (09:25)
[2016-05-18] MEDS: traMADol 50 MG TAB PO SCH ×3 (12:01→23:14)
[2016-05-18] MEDS: AMPICILLIN SOD 2 GM in D5W MINI-BAG PLUS 100 ML IV SCH ×2 (12:26→19:00)
--- NOTE | 2016-05-18 13:25 | IPNPDOC ---
Date Seen The patient was seen on 05/18/16. Progress Note SUBJECTIVE: Patient complains of right wrist pain, she is quite labile. She complains it took too long for her to recieve pain medication last night. She complains her nurses are not attentive enough, she complains that the pain storage management consultant did not immediately adjust her pain medication, she complains she is not receiving IV pain medication. She continues to be frustrated with all aspects of her care. OBJECTIVE PHYSICAL EXAMINATION: VITAL SIGNS: MAXIMUM TEMPERATURE 99.6 Please see below. GENERAL: emotionally labile disheveled elderly female sitting in bed she does not appear to be in any acute distress HEENT: Pupils equally round reactive to light she has moist pedis membranes elevation CVP CARDIOVASCULAR: S1-S2 regular. RESPIRATORY: Clear to auscultation. ABDOMINAL: Obese bowel sounds present abdomen soft EXTREMITIES: Right wrist shows decreased erythema, swelling, increased range of motion. She has a superficial abrasion to her lateral dorsum of her fifth digit not significantly improved from previous days exam LABORATORY DATA: Please see below. MICROBIOLOGY: see below. 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 Well-seated and normally functioning aortic valve bioprosthesis. No aortic regurgitation. 2. Normal left ventricle internal dimensions and wall thickness. Normal left ventricle (LV) wall motion and wall thickening. Normal LV systolic function. Left ventricular ejection fraction (LVEF) 65% by visual estimate. Grade 1 LV diastolic dysfunction (impaired relaxation filling pattern). 3. Moderate mitral annular calcification. Very mild mitral regurgitation. No mitral stenosis. 4. Moderate left atrial dilatation. 5. No vegetations seen on any of the cardiac valves. ASSESSMENT AND PLAN: This is a 75-year-old female with right hand cellulitis. PROBLEMS: 1. Enterococcus Faecalis bacteremia secondary to cellulitis : Superficial abrasion likely represents a break in the skin. . The patient is currently on vancomycin her blood cultures have cleared however at this time I will narrow spectrum to ampicillin IV she has positive blood cultures. She's had an echocardiogram which did not reveal any vegetation she is currently awaiting an MRI of the hand was unable to tolerate a closed MRI she will have an open MRI tomorrow. Will adjust her pain meds as per pain management's recommendations. I did spend greater than 20 minutes bedside answering all questions to the patients satisfaction and addressing all of her concerns. 2. 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 3. Aortic valve disease: As well as post replacement, her Coumadin was supratherapeutic we did give her small doses of vitamin K by mouth and monitor her INR daily she has been restarted on her Coumadin. 4. Coronary artery disease: The patient is on aspirin and beta amber and statin 5. Hypertension the patient is on a beta amber and Aldactone. Her chlorthalidone is currently on hold. Her blood pressure is controlled 6. Spinal stenosis: The patient has chronic pain she is on tramadol and Percocet 7. Gastric esophageal reflux disease: The patient is on Protonix DISPOSITION: We'll continue to monitor her closely. PT and OT evaluations have been ordered [facility]&O Vital Signs Date Time Temp Pulse Resp B/P Pulse Ox O2 Delivery O2 Flow Rate FiO2 05/18/16 12:01 16 05/18/16 09:24 73 124/57 05/18/16 08:33 99.6 93 Room Air I&O- Last 24 Hours up to 6 AM 05/18/16 06:00 Intake Total 1980 ml Output Total 1900 ml Balance 80 ml Laboratory Data 24H LABS Laboratory Tests 2 05/18/16 06:35: White Blood Count 9.4, Red Blood Count 3.69L, Hemoglobin 11.2L, Hematocrit 34.4L , Mean Corpuscular Volume 93.0, Mean Corpuscular Hemoglobin 30.3, Mean Corpuscular Hemoglobin Concent 32.6, Red Cell Distribution Width 14.5, Platelet Count 285, Neutrophils (%) (Auto) 70.7H, Lymphocytes (%) (Auto) 19.9L, Monocytes (%) (Auto) 6.1H, Eosinophils (%) (Auto) 1.5, Basophils (%) (Auto) 0.2 , Neutrophils # (Auto) 6.6, Lymphocytes # (Auto) 2.0, Monocytes # (Auto) 0.6, Eosinophils # (Auto) 0.1, Basophils # (Auto) 0.0, Erythrocyte Sedimentation Rate 118H, Large Unclassified Cells # 0.2, Large Unclassified Cells % 1.6 05/18/16 06:36: Anion Gap 10, C-Reactive Protein, Quantitative 17.00H, Blood Urea Nitrogen 14, Creatinine 0.52L, Sodium Level 136, Potassium Level 3.8, Chloride Level 100, Carbon Dioxide Level 26, Calcium Level 9.0, Glomerular Filtration Rate > 60.0, Prothromb Time International Ratio 1.65, Prothrombin Time 19.6H CBC/BMP Laboratory Tests 05/18/16 06:35 Red Blood Count 3.69 L, Mean Corpuscular Volume 93.0, Mean Corpuscular Hemoglobin 30.3, Mean Corpuscular Hemoglobin Concent 32.6, Red Cell Distribution Width 14.5, Neutrophils (%) (Auto) 70.7 H, Lymphocytes (%) (Auto) 19.9 L, Monocytes (%) (Auto) 6.1 H, Eosinophils (%) (Auto) 1.5, Basophils (%) ( Auto) 0.2, Neutrophils # (Auto) 6.6, Lymphocytes # (Auto) 2.0, Monocytes # (Auto ) 0.6, Eosinophils # (Auto) 0.1, Basophils # (Auto) 0.0 05/18/16 06:36 Calcium Level 9.0 Microbiology Microbiology 05/17/16 Blood Culture - Preliminary, Resulted No growth after 24 hours . All specim... 05/16/16 Blood Culture - Preliminary, Resulted No growth after 24 hours . All specim... 05/15/16 Blood Culture - Final, Complete Enterococcus Faecalis 05/15/16 Blood Culture - Final, Complete Enterococcus Faecalis GER CRUM MD May 18, 2016 13:25
[2016-05-18 14:00] VITALS: BP 125/56
[2016-05-18] MEDS: WARFARIN SOD 3 MG TAB PO SCH (17:29)
[2016-05-18 22:00] VITALS: BP 149/71
[2016-05-18] MEDS: ATORVASTATIN 20 MG TAB PO SCH (23:13)
[2016-05-18] MEDS: MAGNESIUM OXIDE 400 MG TAB (MAG-OX) PO SCH (23:13)
[2016-05-19] MEDS: AMPICILLIN SOD 2 GM in D5W MINI-BAG PLUS 100 ML IV SCH ×3 (01:00→06:06)
[2016-05-19] MEDS: ACETAMINOPHEN 650MG ER TAB (TYLENOL ARTHRITIS) PO PRN (02:21)
[2016-05-19] MEDS ORDERED: LevoFLOXacin 750 MG TABLET PO ONE (02:45)
[2016-05-19] MEDS: traMADol 50 MG TAB PO SCH ×3 (04:26→17:11)
[2016-05-19 06:00] VITALS: BP 141/67
[2016-05-19] MEDS: IBUPROFEN 400 MG TAB PO SCH ×3 (06:00→20:48)
[2016-05-19 06:56] LABS: BASO % 0.2 % (0.0-1.0); EOS # 0.1 K/mm3 (0.0-0.50); EOS % 1.8 % (0.0-3.0); LARGE UNSTAINED CELL # 0.1 K/mm3 (0.0-0.4); LARGE UNSTAINED CELL % 1.7 % (0.0-4.0); LYMPH # 1.9 K/mm3 (1.5-4.5); LYMPH % 22.5 % (24.0-44.0); MEAN CORPUSCULAR HEMOGLOBIN 31.8 pg (27.0-33.0); MEAN CORPUSCULAR HGB CONC 34.2 g/dl (32.0-36.5); MEAN CORPUSCULAR VOLUME 92.9 fl (80.0-96.0); MONO # 0.5 K/mm3 (0.0-0.8); MONO % 6.2 % (0.0-5.0); NEUTROPHILS # 5.2 K/mm3 (1.8-7.7); NEUTROPHILS % 67.6 % (36.0-66.0); PLATELET COUNT, AUTOMATED 298 k/mm3 (150-450); RED CELL DISTRIBUTION WIDTH 14.5 % (11.5-14.5); WHITE BLOOD COUNT 7.7 K/mm3 (4.0-10.0)
[2016-05-19 07:19] LABS: ANION GAP 12 MEQ/L (8-16); BLOOD UREA NITROGEN 13 MG/DL (7-18); CALCIUM LEVEL 9.6 MG/DL (8.8-10.2); CARBON DIOXIDE LEVEL 24 MEQ/L (21-32); CHLORIDE LEVEL 102 MEQ/L (98-107); CREATININE FOR GFR 0.47 MG/DL (0.55-1.02); GLOMERULAR FILTRATION RATE > 60.0 (>39); GLUCOSE, FASTING 153 MG/DL (83-110); INR 2.05; SODIUM LEVEL 138 MEQ/L (136-145)
[2016-05-19 08:13] LABS: ERYTHROCYTE SEDIMENTATION RATE 128 mm/hr (0-30)
[2016-05-19] MEDS: FERROUS GLUCONATE 324 MG TAB PO SCH (09:01)
[2016-05-19] MEDS: ASPIRIN 81 MG ENTERIC TAB PO SCH (09:01)
[2016-05-19] MEDS: PANTOPRAZOLE 40MG TAB (PROTONIX) PO SCH (09:01)
[2016-05-19] MEDS: SPIRONOLACTONE 12.5MG PER 1/2 TABLET PO SCH (09:01)
[2016-05-19] MEDS: METOPROLOL SUCC (TopROL XL) 50MG **XL** TAB PO SCH (09:02)
[2016-05-19] MEDS: PERCOCET 5MG/325MG TAB PO PRN ×3 (09:03→20:49)
--- NOTE | 2016-05-19 12:36 | IPNPDOC ---
Date Seen The patient was seen on 05/19/16. Progress Note SUBJECTIVE: Patient complains of persistent right wrist pain she apologizes for being rude to me yesterday and is eager to see her son later today. She seems frustrated with her care and her progress. Overnight events: The patient refused ampicillin as it was burning in her IV the nurse offered to slow it down this was attempted but the patient did not tolerate it OBJECTIVE PHYSICAL EXAMINATION: VITAL SIGNS: MAXIMUM TEMPERATURE Please see below. GENERAL: emotionally labile disheveled elderly female laying in bed she does not appear to be in any acute distress HEENT: Pupils equally round reactive to light she has moist pedis membranes elevation CVP CARDIOVASCULAR: S1-S2 regular. RESPIRATORY: Clear to auscultation. ABDOMINAL: Obese bowel sounds present abdomen soft EXTREMITIES: Right wrist shows decreased erythema, swelling, she does not cooperate with removal of bandage or exam, she refuses scondary to pain. LABORATORY DATA: Please see below. MICROBIOLOGY: see below. 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 Well-seated and normally functioning aortic valve bioprosthesis. No aortic regurgitation. 2. Normal left ventricle internal dimensions and wall thickness. Normal left ventricle (LV) wall motion and wall thickening. Normal LV systolic function. Left ventricular ejection fraction (LVEF) 65% by visual estimate. Grade 1 LV diastolic dysfunction (impaired relaxation filling pattern). 3. Moderate mitral annular calcification. Very mild mitral regurgitation. No mitral stenosis. 4. Moderate left atrial dilatation. 5. No vegetations seen on any of the cardiac valves. ASSESSMENT AND PLAN: This is a 75-year-old female with right hand cellulitis. PROBLEMS: 1. Enterococcus Faecalis bacteremia secondary to cellulitis : Superficial abrasion likely represents a break in the skin. The patient was on vancomycin her speculum was narrowed to ampicillin which she did not tolerate overnight she did receive a one-time dose of levofloxacin at this time I'll transition her to ampicillin by mouth doubled the IV dose in order to obtain a similar bioavailability as discussed with pharmacy. The patient was scheduled for an open MRI today however the patient is unable to tolerate positioning. Pain management as per pain management consult recommendations 2. 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 3. Aortic valve disease: As well as post replacement, her Coumadin was supratherapeutic we did give her small doses of vitamin K by mouth and monitor her INR daily she has been restarted on her Coumadin. An echocardiogram did not reveal any vegetation 4. Coronary artery disease: The patient is on aspirin and beta amber and statin 5. Hypertension the patient is on a beta amber and Aldactone. Her chlorthalidone is currently on hold. Her blood pressure is controlled 6. Spinal stenosis: The patient has chronic pain she is on tramadol and Percocet 7. Gastric esophageal reflux disease: The patient is on Protonix 8. Medical Non Compliance: When I first met this patient she insisted on transfer to [place], she was discouraged to hear there was no indication for transfer to a higher level of care at this time. She did not attempt to start an MRI due to claustrophobia, medication was administered and still she refused to attempt. An open MRI was arranged when available but the patient could not cooperate with appropriate positioning with special procedures tech as per verbal report from them. The patient yesterday complained that her pain was not adequately being addressed and was verbally abusive, IV Morphine was ordered at her request and at the recommendation of the pain mngmt consult, since her complaints and demands she has in fact not requested or utilized it on a single occasion. The patient has refused to work with OT stating that she feels she has a bad body ordour and does not want to be around other people. When informed that she is in fact able to shower she tells me she will not unless she has her specific pair of slippers from home which I am unable to provide for her. The patient was started on Ampicillin IV however she tolerated two doses before she complained it was burning and she refused further doses. She has since been transitioned to PO antibiotics. I have spent greater than 30 minutes bedside each morning explicitly explaining the medical necessity for all the aforementioned and beyond to little avail. The patient is aware that her refusals to allow or take an active part in her medical care will significantly prolong her length of stay and can result in significant morbidity/mortality. The patient seems frustrated with the care provided thus far into her stay and as such I have contacted the patient advocate to help in any way possible. DISPOSITION: We'll continue to monitor her closely. Not safe by PT and OT evaluation pending VS, I&O, 24H, [facility] Vital Signs/I&O Vital Signs Date Time Temp Pulse Resp B/P Pulse Ox O2 Delivery O2 Flow Rate FiO2 05/19/16 11:21 18 05/19/16 09:02 84 141/67 05/19/16 06:00 98.0 97 Room Air I&O- Last 24 Hours up to 6 AM 05/19/16 06:00 Intake Total 1360 ml Output Total 1150 ml Balance 210 ml Laboratory Data 24H LABS Laboratory Tests 2 05/19/16 06:41: Anion Gap 12, White Blood Count 7.7, Red Blood Count 3.41L, Hemoglobin 10.9L, Hematocrit 31.7L, Mean Corpuscular Volume 92.9, Mean Corpuscular Hemoglobin 31.8 , Mean Corpuscular Hemoglobin Concent 34.2, Red Cell Distribution Width 14.5, Platelet Count 298, Neutrophils (%) (Auto) 67.6H, Lymphocytes (%) (Auto) 22.5L, Monocytes (%) (Auto) 6.2H, Eosinophils (%) (Auto) 1.8, Basophils (%) (Auto) 0.2 , Neutrophils # (Auto) 5.2, Lymphocytes # (Auto) 1.9, Monocytes # (Auto) 0.5, Eosinophils # (Auto) 0.1, Basophils # (Auto) 0.0, C-Reactive Protein, Quantitative 17.10H, Blood Urea Nitrogen 13, Creatinine 0.47L, Sodium Level 138 , Potassium Level 4.0, Chloride Level 102, Carbon Dioxide Level 24, Calcium Level 9.6, Erythrocyte Sedimentation Rate 128H, Glomerular Filtration Rate > 60.0, Large Unclassified Cells # 0.1, Large Unclassified Cells % 1.7, Prothromb Time International Ratio 2.05, Prothrombin Time 23.2H CBC/BMP Laboratory Tests 05/19/16 06:41 Calcium Level 9.6, Red Blood Count 3.41 L, Mean Corpuscular Volume 92.9, Mean Corpuscular Hemoglobin 31.8, Mean Corpuscular Hemoglobin Concent 34.2, Red Cell Distribution Width 14.5, Neutrophils (%) (Auto) 67.6 H, Lymphocytes (%) (Auto) 22.5 L, Monocytes (%) (Auto) 6.2 H, Eosinophils (%) (Auto) 1.8, Basophils (%) ( Auto) 0.2, Neutrophils # (Auto) 5.2, Lymphocytes # (Auto) 1.9, Monocytes # (Auto ) 0.5, Eosinophils # (Auto) 0.1, Basophils # (Auto) 0.0 Microbiology Microbiology 05/17/16 Blood Culture - Preliminary, Resulted No Growth after 48 hours. All Specime... 05/16/16 Blood Culture - Preliminary, Resulted No Growth after 48 hours. All Specime... 05/15/16 Blood Culture - Final, Complete Enterococcus Faecalis 05/15/16 Blood Culture - Final, Complete Enterococcus Faecalis GER CRUM MD May 19, 2016 12:36
[2016-05-19] MEDS: AMPICILLIN 250 MG CAP PO SCH ×2 (12:56→17:11)
[2016-05-19 14:00] VITALS: BP 136/62
--- NOTE | 2016-05-19 14:48 | REP ---
MRI WRIST WITHOUT AND WITH CONTRAST: 05/19/2016 CLINICAL HISTORY. Evaluate possible osteomyelitis. COMPARISON: Right hand series 05/15/2016. FINDINGS: This study is nondiagnostic. Technologist notes that the patient was unable to tolerate or lie in correct position for this examination. Multiple attempts with placement of the wrist and various coils were used, but this is a completely nondiagnostic examination. She has bilateral total hip arthroplasties with large volume metal at the hips and proximal femurs near where the hand would rest as she is unable to move it over her head. Nondiagnostic examination. For that diagnostic consideration of osteomyelitis, three-phase bone scan or CT might be helpful. Signed by Waqas Bill MD 05/19/2016 04:46 P
[2016-05-19] MEDS: WARFARIN SOD 3 MG TAB PO SCH (17:09)
[2016-05-19] MEDS: ATORVASTATIN 20 MG TAB PO SCH (20:48)
[2016-05-19] MEDS: MAGNESIUM OXIDE 400 MG TAB (MAG-OX) PO SCH (20:49)
[2016-05-19 22:00] VITALS: BP 130/73
[2016-05-20] MEDS: traMADol 50 MG TAB PO SCH ×5 (00:19→21:50)
[2016-05-20] MEDS: AMPICILLIN 250 MG CAP PO SCH ×4 (00:19→17:47)
[2016-05-20 06:00] VITALS: BP 139/61
[2016-05-20] MEDS: IBUPROFEN 400 MG TAB PO SCH ×3 (06:01→21:43)
[2016-05-20 06:46] LABS: BASO % 0.3 % (0.0-1.0); EOS # 0.1 K/mm3 (0.0-0.50); EOS % 1.7 % (0.0-3.0); LARGE UNSTAINED CELL # 0.2 K/mm3 (0.0-0.4); LARGE UNSTAINED CELL % 2.7 % (0.0-4.0); LYMPH % 28.3 % (24.0-44.0); MEAN CORPUSCULAR HEMOGLOBIN 30.4 pg (27.0-33.0); MEAN CORPUSCULAR HGB CONC 32.5 g/dl (32.0-36.5); MEAN CORPUSCULAR VOLUME 93.4 fl (80.0-96.0); MONO # 0.4 K/mm3 (0.0-0.8); MONO % 5.6 % (0.0-5.0); NEUTROPHILS # 4.3 K/mm3 (1.8-7.7); NEUTROPHILS % 61.5 % (36.0-66.0); PLATELET COUNT, AUTOMATED 318 k/mm3 (150-450); RED CELL DISTRIBUTION WIDTH 14.2 % (11.5-14.5); WHITE BLOOD COUNT 6.9 K/mm3 (4.0-10.0)
[2016-05-20 06:47] LABS: INR 2.53
[2016-05-20 07:06] LABS: ANION GAP 10 MEQ/L (8-16); BLOOD UREA NITROGEN 19 MG/DL (7-18); CALCIUM LEVEL 9.4 MG/DL (8.8-10.2); CARBON DIOXIDE LEVEL 27 MEQ/L (21-32); CHLORIDE LEVEL 105 MEQ/L (98-107); CREATININE FOR GFR 0.51 MG/DL (0.55-1.02); GLOMERULAR FILTRATION RATE > 60.0 (>39); GLUCOSE, FASTING 139 MG/DL (83-110); POTASSIUM SERUM 4.1 MEQ/L (3.5-5.1); SODIUM LEVEL 142 MEQ/L (136-145)
[2016-05-20 07:08] LABS: ERYTHROCYTE SEDIMENTATION RATE 106 mm/hr (0-30)
[2016-05-20] MEDS: PERCOCET 5MG/325MG TAB PO PRN ×2 (09:39→13:44)
[2016-05-20] MEDS: SPIRONOLACTONE 12.5MG PER 1/2 TABLET PO SCH (09:39)
[2016-05-20] MEDS: ASPIRIN 81 MG ENTERIC TAB PO SCH (09:39)
[2016-05-20] MEDS: FERROUS GLUCONATE 324 MG TAB PO SCH (09:40)
[2016-05-20] MEDS: PANTOPRAZOLE 40MG TAB (PROTONIX) PO SCH (09:40)
[2016-05-20] MEDS: METOPROLOL SUCC (TopROL XL) 50MG **XL** TAB PO SCH (09:40)
[2016-05-20] MEDS: LIDOCAINE 2% JELLY 30 ML TOP PRN (12:37)
--- NOTE | 2016-05-20 13:18 | IPNPDOC ---
Date Seen The patient was seen on 05/20/16. Progress Note SUBJECTIVE: Patient tells me her pain is improved today and swelling has come down in her opinion. She still however seems frustrated with her care and her progress. OBJECTIVE PHYSICAL EXAMINATION: VITAL SIGNS: MAXIMUM TEMPERATURE Please see below. GENERAL: emotionally labile disheveled elderly female laying in bed she does not appear to be in any acute distress HEENT: Pupils equally round reactive to light she has moist pedis membranes elevation CVP CARDIOVASCULAR: S1-S2 regular. RESPIRATORY: Clear to auscultation. ABDOMINAL: Obese bowel sounds present abdomen soft EXTREMITIES: Right wrist shows decreased erythema, swelling, dressing removed today, improved ROM LABORATORY DATA: Please see below. MICROBIOLOGY: see below. 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 Well-seated and normally functioning aortic valve bioprosthesis. No aortic regurgitation. 2. Normal left ventricle internal dimensions and wall thickness. Normal left ventricle (LV) wall motion and wall thickening. Normal LV systolic function. Left ventricular ejection fraction (LVEF) 65% by visual estimate. Grade 1 LV diastolic dysfunction (impaired relaxation filling pattern). 3. Moderate mitral annular calcification. Very mild mitral regurgitation. No mitral stenosis. 4. Moderate left atrial dilatation. 5. No vegetations seen on any of the cardiac valves. ASSESSMENT AND PLAN: This is a 75-year-old female with right hand cellulitis. PROBLEMS: 1. Enterococcus Faecalis bacteremia secondary to cellulitis : Superficial abrasion likely represents a break in the skin. The patient was on vancomycin her spectrum was narrowed to ampicillin which she did not tolerate IV but is now on a doubled dose PO. The patient once again refused to work with physical therapy today. The patient now has her bathrobe and her slippers which her son brought her yesterday afternoon however she has not showered and still is not ready to work with physical therapy I have encouraged her to do this as she has had her bathrobe of slippers for almost 24 hours at this point and this was the main factor impeding her showering making her feel unready to participate with physical therapy. 2. 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 3. Aortic valve disease: She is therapeutic on Coumadin. An echocardiogram did not reveal any vegetation 4. Coronary artery disease: The patient is on aspirin and beta amber and statin 5. Hypertension the patient is on a beta amber and Aldactone. Her chlorthalidone is currently on hold. Her blood pressure is controlled 6. Spinal stenosis: The patient has chronic pain she is on tramadol and Percocet 7. Gastric esophageal reflux disease: The patient is on Protonix 8. Medical Non Compliance: When I first met this patient she insisted on transfer to [place], she was discouraged to hear there was no indication for transfer to a higher level of care at that time. She did not attempt to sit for an MRI due to claustrophobia, medication was administered and still she refused to attempt. An open MRI was arranged when available 48 hours later but the patient could not cooperate with appropriate positioning with it technical specialist as per verbal report from them and the test was nondiagnostic. The patient previously complained that her pain was not adequately being addressed and was verbally abusive, IV Morphine was ordered at her request and at the recommendation of the pain mngmt consult, since her complaints and demands she has in fact not requested or utilized it on a single occasion. The patient was suggested to take ibuprofen as this could help control her pain however she refuses to take this medication the first 6 times it was offered to her and wait until her son came before she would agree to take it. The patient has refused to work with OT stating that she feels she has a bad body ordour and does not want to be around other people. When informed that she is in fact able to shower she tells me she will not unless she has her specific pair of slippers from home which have been provided to her for over 24 hours. The patient was started on Ampicillin IV however she tolerated two doses before she complained it was burning and she refused further doses. She has since been transitioned to PO antibiotics. I have spent greater than 30 minutes bedside each morning explicitly explaining the medical necessity for all the aforementioned and and the patient is aware that her refusals to allow or take an active part in her medical care will significantly prolong her length of stay and can result in significant morbidity /mortality. The patient seems frustrated with the care provided thus far into her stay and as such I did contact the patient advocate to help in any way possible. DISPOSITION: We'll continue to monitor her closely. Not safe by PT and OT evaluation pending VS, I&O, 24H, Mary Vital Signs/I&O Vital Signs Date Time Temp Pulse Resp B/P Pulse Ox O2 Delivery O2 Flow Rate FiO2 05/20/16 11:50 18 05/20/16 09:40 81 139/61 05/20/16 06:00 96.8 95 05/19/16 22:00 Room Air I&O- Last 24 Hours up to 6 AM 05/20/16 05:59 Intake Total 840 ml Output Total 500 ml Balance 340 ml Laboratory Data 24H LABS Laboratory Tests 2 05/20/16 06:28: Anion Gap 10, White Blood Count 6.9, Red Blood Count 3.36L, Hemoglobin 10.2L, Hematocrit 31.4L, Mean Corpuscular Volume 93.4, Mean Corpuscular Hemoglobin 30.4 , Mean Corpuscular Hemoglobin Concent 32.5, Red Cell Distribution Width 14.2, Platelet Count 318, Neutrophils (%) (Auto) 61.5, Lymphocytes (%) (Auto) 28.3, Monocytes (%) (Auto) 5.6H, Eosinophils (%) (Auto) 1.7, Basophils (%) (Auto) 0.3 , Neutrophils # (Auto) 4.3, Lymphocytes # (Auto) 2.0, Monocytes # (Auto) 0.4, Eosinophils # (Auto) 0.1, Basophils # (Auto) 0.0, C-Reactive Protein, Quantitative 14.80H, Blood Urea Nitrogen 19H, Creatinine 0.51L, Sodium Level 142 , Potassium Level 4.1, Chloride Level 105, Carbon Dioxide Level 27, Calcium Level 9.4, Erythrocyte Sedimentation Rate 106H, Glomerular Filtration Rate > 60.0, Large Unclassified Cells # 0.2, Large Unclassified Cells % 2.7, Prothromb Time International Ratio 2.53, Prothrombin Time 27.3H CBC/BMP Laboratory Tests 05/20/16 06:28 Calcium Level 9.4, Red Blood Count 3.36 L, Mean Corpuscular Volume 93.4, Mean Corpuscular Hemoglobin 30.4, Mean Corpuscular Hemoglobin Concent 32.5, Red Cell Distribution Width 14.2, Neutrophils (%) (Auto) 61.5, Lymphocytes (%) (Auto) 28.3, Monocytes (%) (Auto) 5.6 H, Eosinophils (%) (Auto) 1.7, Basophils (%) ( Auto) 0.3, Neutrophils # (Auto) 4.3, Lymphocytes # (Auto) 2.0, Monocytes # (Auto ) 0.4, Eosinophils # (Auto) 0.1, Basophils # (Auto) 0.0 Microbiology Microbiology 05/17/16 Blood Culture - Preliminary, Resulted No Growth after 72 hours. All specime... 05/16/16 Blood Culture - Preliminary, Resulted No Growth after 72 hours. All specime... 05/15/16 Blood Culture - Final, Complete Enterococcus Faecalis 05/15/16 Blood Culture - Final, Complete Enterococcus Faecalis GER CRUM MD May 20, 2016 13:18
[2016-05-20 14:00] VITALS: BP 135/60
[2016-05-20] MEDS ORDERED: SENNA 8.6 MG TAB (SENOKOT) PO PRN (14:00)
[2016-05-20] MEDS ORDERED: MOM 30ML SUSPENSION UDC PO PRN (14:00)
[2016-05-20] MEDS: DOCUSATE SODIUM 100 MG CAP PO PRN (15:12)
[2016-05-20] MEDS: WARFARIN SOD 3 MG TAB PO SCH (17:47)
[2016-05-20] MEDS: ATORVASTATIN 20 MG TAB PO SCH (21:43)
[2016-05-20] MEDS: MAGNESIUM OXIDE 400 MG TAB (MAG-OX) PO SCH (21:45)
[2016-05-20 22:00] VITALS: BP 147/68
[2016-05-21] MEDS: AMPICILLIN 250 MG CAP PO SCH ×5 (00:17→23:35)
[2016-05-21] MEDS: traMADol 50 MG TAB PO SCH ×5 (03:38→23:37)
[2016-05-21] MEDS: PERCOCET 5MG/325MG TAB PO PRN ×3 (04:32→22:26)
[2016-05-21] MEDS: IBUPROFEN 400 MG TAB PO SCH ×3 (05:50→22:00)
[2016-05-21 06:00] VITALS: BP 152/67
[2016-05-21 06:35] LABS: BASO % 0.2 % (0.0-1.0); EOS # 0.1 K/mm3 (0.0-0.50); EOS % 1.3 % (0.0-3.0); LARGE UNSTAINED CELL # 0.1 K/mm3 (0.0-0.4); LARGE UNSTAINED CELL % 1.8 % (0.0-4.0); LYMPH # 1.5 K/mm3 (1.5-4.5); MEAN CORPUSCULAR HEMOGLOBIN 30.2 pg (27.0-33.0); MEAN CORPUSCULAR HGB CONC 32.3 g/dl (32.0-36.5); MEAN CORPUSCULAR VOLUME 93.4 fl (80.0-96.0); MONO # 0.4 K/mm3 (0.0-0.8); MONO % 5.5 % (0.0-5.0); NEUTROPHILS # 5.9 K/mm3 (1.8-7.7); NEUTROPHILS % 73.2 % (36.0-66.0); PLATELET COUNT, AUTOMATED 300 k/mm3 (150-450); RED CELL DISTRIBUTION WIDTH 14.4 % (11.5-14.5)
[2016-05-21 06:40] LABS: INR 2.68
[2016-05-21 07:05] LABS: ANION GAP 9 MEQ/L (8-16); BLOOD UREA NITROGEN 20 MG/DL (7-18); CALCIUM LEVEL 8.7 MG/DL (8.8-10.2); CARBON DIOXIDE LEVEL 25 MEQ/L (21-32); CHLORIDE LEVEL 108 MEQ/L (98-107); CREATININE FOR GFR 0.48 MG/DL (0.55-1.02); GLOMERULAR FILTRATION RATE > 60.0 (>39); GLUCOSE, FASTING 126 MG/DL (83-110); SODIUM LEVEL 142 MEQ/L (136-145)
[2016-05-21 07:09] LABS: ERYTHROCYTE SEDIMENTATION RATE 87 mm/hr (0-30)
[2016-05-21] MEDS: SPIRONOLACTONE 12.5MG PER 1/2 TABLET PO SCH (10:19)
[2016-05-21] MEDS: ASPIRIN 81 MG ENTERIC TAB PO SCH (10:19)
[2016-05-21] MEDS: METOPROLOL SUCC (TopROL XL) 50MG **XL** TAB PO SCH (10:19)
[2016-05-21] MEDS: PANTOPRAZOLE 40MG TAB (PROTONIX) PO SCH (10:20)
[2016-05-21] MEDS: FERROUS GLUCONATE 324 MG TAB PO SCH (10:20)
[2016-05-21] MEDS: DOCUSATE SODIUM 100 MG CAP PO PRN (10:21)
--- NOTE | 2016-05-21 12:07 | IPNPDOC ---
Date Seen The patient was seen on 05/21/16. Progress Note SUBJECTIVE: Patient tells me her pain is improved today she is tired and wants to go home. OBJECTIVE PHYSICAL EXAMINATION: VITAL SIGNS: Please see below. GENERAL: disheveled irritated elderly female sitting in chair she does not appear to be in any acute distress HEENT: Pupils equally round reactive to light she has moist pedis membranes elevation CVP CARDIOVASCULAR: S1-S2 regular. estrada systolic murmur RESPIRATORY: Clear to auscultation. ABDOMINAL: Obese bowel sounds present abdomen soft EXTREMITIES: Right wrist shows decreased erythema, swelling, dressing removed today, improved ROM, improved from previous days exam LABORATORY DATA: Please see below. MICROBIOLOGY: see below. 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 Well-seated and normally functioning aortic valve bioprosthesis. No aortic regurgitation. 2. Normal left ventricle internal dimensions and wall thickness. Normal left ventricle (LV) wall motion and wall thickening. Normal LV systolic function. Left ventricular ejection fraction (LVEF) 65% by visual estimate. Grade 1 LV diastolic dysfunction (impaired relaxation filling pattern). 3. Moderate mitral annular calcification. Very mild mitral regurgitation. No mitral stenosis. 4. Moderate left atrial dilatation. 5. No vegetations seen on any of the cardiac valves. ASSESSMENT AND PLAN: This is a 75-year-old female with right hand cellulitis. PROBLEMS: 1. Enterococcus Faecalis bacteremia secondary to cellulitis : Superficial abrasion likely represents a break in the skin. The patient was on vancomycin her spectrum was narrowed to ampicillin which she did not tolerate IV but is now on a doubled dose PO day 06/02. The patient showered early this AM with the help of a female aid in an effort to work with PT. She insists she will not have a bone scan or have an IV placed. 2. 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 3. Aortic valve disease: She is therapeutic on Coumadin. An echocardiogram did not reveal any vegetation 4. Coronary artery disease: The patient is on aspirin and beta amber and statin 5. Hypertension the patient is on a beta amber and Aldactone. Her chlorthalidone is currently on hold. Her blood pressure is controlled 6. Spinal stenosis: The patient has chronic pain she is on tramadol and Percocet 7. Gastric esophageal reflux disease: The patient is on Protonix 8. Medical Non Compliance: When I first met this patient she insisted on transfer to [place], she was discouraged to hear there was no indication for transfer to a higher level of care at that time. She did not attempt to sit for an MRI due to claustrophobia, medication was administered and still she refused to attempt. An open MRI was arranged when available 48 hours later but the patient could not cooperate with appropriate positioning as per verbal report from [facility] and the test was nondiagnostic. The patient was then offered a bone scan, this test was ordered and explained in detail to both her and her son. The following day she informed me she would not allow IV placement and would refuse the bone scan test to r/o osteomyelitis. The patient previously complained that her pain was not adequately being addressed and was verbally abusive, IV Morphine was ordered at her request and at the recommendation of the pain mngmt consult, since her complaints and demands she has in fact not requested or utilized it on a single occasion. The patient was suggested to take ibuprofen as this could help control her pain however she refused to take this medication the first 6 times it was offered to her until her son came and convinced her to trust the medical team. The patient has refused to work with OT and PT on separate occasions stating that she feels she has a bad body odour and does not want to be around other people. The patient was started on Ampicillin IV however she tolerated two doses before she complained it was burning and she refused further doses. She has since been transitioned to PO antibiotics. I have spent greater than 30 minutes bedside each morning explicitly explaining the medical necessity for all the aforementioned and and the patient is aware that her refusals to allow or take an active part in her medical care could significantly prolong her length of stay and can result in significant morbidity/mortality. DISPOSITION: We'll continue to monitor her closely. VS, I&O, 24H, Fishbone Vital Signs/I&O Vital Signs Date Time Temp Pulse Resp B/P Pulse Ox O2 Delivery O2 Flow Rate FiO2 05/21/16 11:24 18 05/21/16 10:38 Room Air 05/21/16 10:19 81 152/67 05/21/16 06:00 98.3 93 I&O- Last 24 Hours up to 6 AM 05/21/16 06:00 Intake Total 840 ml Output Total 1000 ml Balance -160 ml Laboratory Data 24H LABS Laboratory Tests 2 05/21/16 06:21: Anion Gap 9, White Blood Count 8.0, Red Blood Count 3.43L, Hemoglobin 10.4L, Hematocrit 32.1L, Mean Corpuscular Volume 93.4, Mean Corpuscular Hemoglobin 30.2 , Mean Corpuscular Hemoglobin Concent 32.3, Red Cell Distribution Width 14.4, Platelet Count 300, Neutrophils (%) (Auto) 73.2H, Lymphocytes (%) (Auto) 18.0L, Monocytes (%) (Auto) 5.5H, Eosinophils (%) (Auto) 1.3, Basophils (%) (Auto) 0.2 , Neutrophils # (Auto) 5.9, Lymphocytes # (Auto) 1.5, Monocytes # (Auto) 0.4, Eosinophils # (Auto) 0.1, Basophils # (Auto) 0.0, C-Reactive Protein, Quantitative 9.88H, Blood Urea Nitrogen 20H, Creatinine 0.48L, Sodium Level 142 , Potassium Level 4.0, Chloride Level 108H, Carbon Dioxide Level 25, Calcium Level 8.7L, Erythrocyte Sedimentation Rate 87H, Glomerular Filtration Rate > 60.0, Large Unclassified Cells # 0.1, Large Unclassified Cells % 1.8, Prothromb Time International Ratio 2.68, Prothrombin Time 28.6H CBC/BMP Laboratory Tests 05/21/16 06:21 Calcium Level 8.7 L, Red Blood Count 3.43 L, Mean Corpuscular Volume 93.4, Mean Corpuscular Hemoglobin 30.2, Mean Corpuscular Hemoglobin Concent 32.3, Red Cell Distribution Width 14.4, Neutrophils (%) (Auto) 73.2 H, Lymphocytes (%) (Auto) 18.0 L, Monocytes (%) (Auto) 5.5 H, Eosinophils (%) (Auto) 1.3, Basophils (%) ( Auto) 0.2, Neutrophils # (Auto) 5.9, Lymphocytes # (Auto) 1.5, Monocytes # (Auto ) 0.4, Eosinophils # (Auto) 0.1, Basophils # (Auto) 0.0 Microbiology Microbiology 05/17/16 Blood Culture - Preliminary, Resulted No Growth after 72 hours. All specime... 05/16/16 Blood Culture - Preliminary, Resulted No Growth after 72 hours. All specime... 05/15/16 Blood Culture - Final, Complete Enterococcus Faecalis 05/15/16 Blood Culture - Final, Complete Enterococcus Faecalis GER CRUM MD May 21, 2016 12:06
[2016-05-21 14:00] VITALS: BP 176/82
[2016-05-21] MEDS: WARFARIN SOD 3 MG TAB PO SCH (17:47)
[2016-05-21 22:00] VITALS: BP 148/69
[2016-05-21] MEDS: ATORVASTATIN 20 MG TAB PO SCH (22:20)
[2016-05-21] MEDS: MAGNESIUM OXIDE 400 MG TAB (MAG-OX) PO SCH (22:23)
[2016-05-22] MEDS: LIDOCAINE 2% JELLY 30 ML TOP PRN ×3 (03:08→22:12)
[2016-05-22] MEDS: PERCOCET 5MG/325MG TAB PO PRN ×3 (03:10→23:25)
[2016-05-22] MEDS: AMPICILLIN 250 MG CAP PO SCH ×4 (05:51→22:10)
[2016-05-22] MEDS: IBUPROFEN 400 MG TAB PO SCH (05:52)
[2016-05-22] MEDS: traMADol 50 MG TAB PO SCH ×4 (05:52→22:11)
[2016-05-22 06:00] VITALS: BP 152/67
[2016-05-22] MEDS: ASPIRIN 81 MG ENTERIC TAB PO SCH (09:26)
[2016-05-22] MEDS: FERROUS GLUCONATE 324 MG TAB PO SCH (09:26)
[2016-05-22] MEDS: SPIRONOLACTONE 12.5MG PER 1/2 TABLET PO SCH (09:26)
[2016-05-22] MEDS: PANTOPRAZOLE 40MG TAB (PROTONIX) PO SCH (09:27)
[2016-05-22] MEDS: METOPROLOL SUCC (TopROL XL) 50MG **XL** TAB PO SCH (09:27)
[2016-05-22 11:03] LABS: BASO % 0.3 % (0.0-1.0); EOS # 0.1 K/mm3 (0.0-0.50); EOS % 1.9 % (0.0-3.0); LARGE UNSTAINED CELL # 0.1 K/mm3 (0.0-0.4); LARGE UNSTAINED CELL % 0.9 % (0.0-4.0); LYMPH # 1.8 K/mm3 (1.5-4.5); LYMPH % 24.6 % (24.0-44.0); MEAN CORPUSCULAR HEMOGLOBIN 30.9 pg (27.0-33.0); MEAN CORPUSCULAR HGB CONC 32.8 g/dl (32.0-36.5); MEAN CORPUSCULAR VOLUME 94.4 fl (80.0-96.0); MONO # 0.3 K/mm3 (0.0-0.8); MONO % 4.2 % (0.0-5.0); NEUTROPHILS # 4.8 K/mm3 (1.8-7.7); PLATELET COUNT, AUTOMATED 332 k/mm3 (150-450); RED CELL DISTRIBUTION WIDTH 14.4 % (11.5-14.5)
[2016-05-22 11:11] LABS: INR 2.59
[2016-05-22 11:38] LABS: ERYTHROCYTE SEDIMENTATION RATE 85 mm/hr (0-30)
[2016-05-22 11:47] LABS: ANION GAP 17 MEQ/L (8-16); BLOOD UREA NITROGEN 17 MG/DL (7-18); CALCIUM LEVEL 9.3 MG/DL (8.8-10.2); CARBON DIOXIDE LEVEL 20 MEQ/L (21-32); CHLORIDE LEVEL 105 MEQ/L (98-107); CREATININE FOR GFR 0.49 MG/DL (0.55-1.02); GLOMERULAR FILTRATION RATE > 60.0 (>39); GLUCOSE, FASTING 191 MG/DL (83-110); POTASSIUM SERUM 4.3 MEQ/L (3.5-5.1); SODIUM LEVEL 142 MEQ/L (136-145)
--- NOTE | 2016-05-22 13:02 | IPNPDOC ---
Date Seen The patient was seen on 05/22/16. Progress Note SUBJECTIVE: Patient tells me her pain is improving slowly and she wants to get better. She complains that the belt loop cutter who came to visit her this AM was new to her and she did not trust her and refused her blood work this AM. OBJECTIVE PHYSICAL EXAMINATION: VITAL SIGNS: Please see below. GENERAL: disheveled irritated elderly female laying in bed, does not appear to be in any acute distress HEENT: Pupils equally round reactive to light she has moist pedis membranes elevation CVP CARDIOVASCULAR: S1-S2 regular. estrada systolic murmur RESPIRATORY: Clear to auscultation. ABDOMINAL: Obese bowel sounds present abdomen soft EXTREMITIES: Right wrist shows decreased erythema, swelling, dressing removed today, improved ROM, improved from previous days exam LABORATORY DATA: Please see below. MICROBIOLOGY: see below. 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 Well-seated and normally functioning aortic valve bioprosthesis. No aortic regurgitation. 2. Normal left ventricle internal dimensions and wall thickness. Normal left ventricle (LV) wall motion and wall thickening. Normal LV systolic function. Left ventricular ejection fraction (LVEF) 65% by visual estimate. Grade 1 LV diastolic dysfunction (impaired relaxation filling pattern). 3. Moderate mitral annular calcification. Very mild mitral regurgitation. No mitral stenosis. 4. Moderate left atrial dilatation. 5. No vegetations seen on any of the cardiac valves. ASSESSMENT AND PLAN: This is a 75-year-old female with right hand cellulitis. PROBLEMS: 1. Enterococcus Faecalis bacteremia secondary to cellulitis : Superficial abrasion likely represents a break in the skin. The patient was on vancomycin her spectrum was narrowed to ampicillin which she did not tolerate IV but is now on a doubled dose PO day 07/03. Contineus to refuse IV access a bone scan or re attempting any MRI's. She is aware that this means we can not rule out an osteomyelitis and if inappropriately treated could result in sepsis and . She in the face of this declines further testing. Patient has not been cleared by PT/OT, a script for platform walker has been provided today. 2. 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 3. Aortic valve disease: She is therapeutic on Coumadin. An echocardiogram did not reveal any vegetation 4. Coronary artery disease: The patient is on aspirin, beta amber and statin 5. Hypertension the patient is on a beta amber and Aldactone. Her chlorthalidone is currently on hold. Her blood pressure is controlled 6. Spinal stenosis: The patient has chronic pain she is on tramadol and Percocet 7. Gastric esophageal reflux disease: The patient is on Protonix 8. Medical Non Compliance: When I first met this patient she insisted on transfer to [place], she was discouraged to hear there was no indication for transfer to a higher level of care at that time. She did not attempt to sit for an MRI due to claustrophobia, medication was administered and still she refused to attempt. An open MRI was arranged when available 48 hours later but the patient could not cooperate with appropriate positioning as per verbal report from the tech and the test was nondiagnostic. The patient was then offered a bone scan, this test was ordered and explained in detail to both her and her son. The following day she informed me she would not allow IV placement and would refuse the bone scan test to r/o osteomyelitis. This morning she refused blood work from belt loop cutter stating she had not seen this new belt loop cutter before and she did not trust her, but she would be open to using one of her previous phlebotomists. The patient previously complained that her pain was not adequately being addressed and was verbally abusive, IV Morphine was ordered at her request and at the recommendation of the pain mngmt consult, since her complaints and demands she has in fact not requested or utilized it on a single occasion. The patient was suggested to take ibuprofen as this could help control her pain however she refused to take this medication the first 6 times it was offered to her until her son came and convinced her to trust the medical team she is once again refusing it, and it will be d/c'd. The patient has refused to work with OT and PT on separate occasions stating that she feels she has a bad body odour and does not want to be around other people. Even when provided with her slippers and bath robe from home from her son as requested, she still did not shower and "make herself ready" to work with PT. The patient was started on Ampicillin IV however she tolerated two doses before she complained it was burning and she refused further doses. She has since been transitioned to PO antibiotics. I have spent greater than 30 minutes bedside each morning explicitly explaining the medical necessity for all the aforementioned and and the patient is aware that her refusals to allow or take an active part in her medical care could significantly prolong her length of stay and can result in significant morbidity/mortality. DISPOSITION: We'll continue to monitor her closely. VS, I&O, 24H, Mary Vital Signs/I&O Vital Signs Date Time Temp Pulse Resp B/P Pulse Ox O2 Delivery O2 Flow Rate FiO2 05/22/16 11:00 14 Room Air 05/22/16 09:27 81 152/67 05/22/16 06:00 98.3 93 I&O- Last 24 Hours up to 6 AM 05/22/16 06:00 Intake Total 840 ml Output Total 0 ml Balance 840 ml Laboratory Data 24H LABS Laboratory Tests 2 05/22/16 10:52: Anion Gap 17H, White Blood Count 7.0, Red Blood Count 3.70L, Hemoglobin 11.5L, Hematocrit 35.0L, Mean Corpuscular Volume 94.4, Mean Corpuscular Hemoglobin 30.9 , Mean Corpuscular Hemoglobin Concent 32.8, Red Cell Distribution Width 14.4, Platelet Count 332, Neutrophils (%) (Auto) 68.0H, Lymphocytes (%) (Auto) 24.6, Monocytes (%) (Auto) 4.2, Eosinophils (%) (Auto) 1.9, Basophils (%) (Auto) 0.3, Neutrophils # (Auto) 4.8, Lymphocytes # (Auto) 1.8, Monocytes # (Auto) 0.3, Eosinophils # (Auto) 0.1, Basophils # (Auto) 0.0, C-Reactive Protein, Quantitative 6.73H, Blood Urea Nitrogen 17, Creatinine 0.49L, Sodium Level 142, Potassium Level 4.3, Chloride Level 105, Carbon Dioxide Level 20L, Calcium Level 9.3, Erythrocyte Sedimentation Rate 85H, Glomerular Filtration Rate > 60.0 , Large Unclassified Cells # 0.1, Large Unclassified Cells % 0.9, Prothromb Time International Ratio 2.59, Prothrombin Time 27.8H CBC/BMP Laboratory Tests 05/22/16 10:52 Calcium Level 9.3, Red Blood Count 3.70 L, Mean Corpuscular Volume 94.4, Mean Corpuscular Hemoglobin 30.9, Mean Corpuscular Hemoglobin Concent 32.8, Red Cell Distribution Width 14.4, Neutrophils (%) (Auto) 68.0 H, Lymphocytes (%) (Auto) 24.6, Monocytes (%) (Auto) 4.2, Eosinophils (%) (Auto) 1.9, Basophils (%) (Auto ) 0.3, Neutrophils # (Auto) 4.8, Lymphocytes # (Auto) 1.8, Monocytes # (Auto) 0.3, Eosinophils # (Auto) 0.1, Basophils # (Auto) 0.0 Microbiology Microbiology 05/17/16 Blood Culture - Final, Complete NO GROWTH AFTER 5 DAYS 05/16/16 Blood Culture - Final, Complete NO GROWTH AFTER 5 DAYS 05/15/16 Blood Culture - Final, Complete Enterococcus Faecalis 05/15/16 Blood Culture - Final, Complete Enterococcus Faecalis GER CRUM MD May 22, 2016 13:02
[2016-05-22 14:00] VITALS: BP 125/60
[2016-05-22] MEDS: WARFARIN SOD 3 MG TAB PO SCH (16:59)
[2016-05-22 22:00] VITALS: BP 153/62
[2016-05-22] MEDS: MAGNESIUM OXIDE 400 MG TAB (MAG-OX) PO SCH (22:10)
[2016-05-22] MEDS: ATORVASTATIN 20 MG TAB PO SCH (22:11)
[2016-05-23] MEDS: AMPICILLIN 250 MG CAP PO SCH ×3 (05:46→17:07)
[2016-05-23] MEDS: traMADol 50 MG TAB PO SCH ×5 (05:47→23:00)
[2016-05-23 06:00] VITALS: BP 136/65
[2016-05-23] MEDS: PERCOCET 5MG/325MG TAB PO PRN ×2 (06:29→13:27)
[2016-05-23] MEDS: FERROUS GLUCONATE 324 MG TAB PO SCH (09:00)
[2016-05-23] MEDS: ASPIRIN 81 MG ENTERIC TAB PO SCH (09:44)
[2016-05-23] MEDS: SPIRONOLACTONE 12.5MG PER 1/2 TABLET PO SCH (09:44)
[2016-05-23] MEDS: PANTOPRAZOLE 40MG TAB (PROTONIX) PO SCH (09:45)
[2016-05-23] MEDS: METOPROLOL SUCC (TopROL XL) 50MG **XL** TAB PO SCH (09:45)
[2016-05-23] MEDS: LIDOCAINE 2% JELLY 30 ML TOP PRN (09:48)
[2016-05-23 14:00] VITALS: BP 125/58
[2016-05-23] MEDS: WARFARIN SOD 3 MG TAB PO SCH (17:08)
--- NOTE | 2016-05-23 17:35 | REP ---
RIGHT WRIST, TWO VIEWS: HISTORY: Pain. COMPARISON: 05/15/2016 There is no acute fracture or dislocation. There is narrowing of the first carpal metacarpal joint space with associated osteophyte formation and sclerosis. Chondrocalcinosis is present. The bony structure is osteopenic. IMPRESSION: Degenerative change as described above. Signed by Ambrose Mercedes MD 05/23/2016 05:41 P
--- NOTE | 2016-05-23 20:10 | IPN ---
DATE: 05/23/2016 A 75-year-old female seen at bedside. She has no complaints. She remains afebrile. OBJECTIVE: Temperature is 98, pulse 63, respiratory rate is 12, blood pressure (BP) 136/65, SPO2 96% on room air. GENERAL: The patient appears to be in no acute distress. Is alert, oriented. HEENT: Unremarkable. LUNGS: Clear. HEART: Regular rate and rhythm. ABDOMEN: Soft. EXTREMITIES: No edema. No calf tenderness in lower extremity. The erythema that was previously on the right wrist is resolved. She has some joint tenderness and crepitus of the right wrist, but this appears to be longstanding and likely related to osteoarthritis. Blood cultures were positive previously for Enterococcus (E) faecalis, which were pansensitive ASSESSMENT AND PLAN: 1. Enterococcus faecalis bacteremia secondary cellulitis, likely secondary to superficial abrasion and breaking the skin, which appears to be doing much better. Antibiotic spectrum was narrowed to ampicillin. Tolerating PO ampicillin day #5 of 10. She does appear to be improving. She does not appear to be septic. White count is normal, and her C-reactive protein continues to trend downward. However, she has complaint of continued right wrist pain. We further discussed Dr. Tenorio's recommendation of bone scan versus MRI to rule out osteomyelitis. She is again strongly refusing but was agreeable to an x-ray of the wrist. This is a suboptimal test, but none the less could be beneficial if no destructive lesions are identified and she continues to show improvement clinically. Likely be ready for home discharge tomorrow pending her involvement with physical therapy. 2. Anemia. There is history of chronic disease and iron deficiency. Continue on ferrous sulfate. 3. Aortic valve disease. She is therapeutic on her Coumadin. Echo did not reveal any valvular vegetation 4. Coronary artery disease, stable on aspirin, beta amber, and statin. 5. Hypertension, stable on beta amber and Aldactone. Chlorthalidone is on hold. Blood pressure is controlled. Will consider resuming this on discharge. 6. Spinal stenosis with chronic pain. Continue on tramadol and Percocet. 7. Gastroesophageal reflux disease (GERD), stable on Protonix. 8. History of medical noncompliance. She has had some discussions regarding this. She was agreeable to participate with occupational therapy (OT) and physical therapy today and will see if she is ready for home discharge. If not, we may need to consider making her retirement status. FAUSTINO
[2016-05-23 22:00] VITALS: BP 131/62
[2016-05-23] MEDS: MAGNESIUM OXIDE 400 MG TAB (MAG-OX) PO SCH (22:24)
[2016-05-23] MEDS: ATORVASTATIN 20 MG TAB PO SCH (22:25)
[2016-05-24] MEDS: AMPICILLIN 250 MG CAP PO SCH ×5 (00:32→23:54)
[2016-05-24] MEDS: PERCOCET 5MG/325MG TAB PO PRN ×4 (01:31→22:26)
[2016-05-24] MEDS: traMADol 50 MG TAB PO SCH ×5 (05:49→23:55)
[2016-05-24 06:00] VITALS: BP 131/64
[2016-05-24] MEDS ORDERED: AMPI25CA PO (08:21)
[2016-05-24] MEDS ORDERED: FERR32TA PO (08:21)
[2016-05-24 08:52] LABS: MEAN CORPUSCULAR HEMOGLOBIN 30.6 pg (27.0-33.0); MEAN CORPUSCULAR HGB CONC 32.6 g/dl (32.0-36.5); MEAN CORPUSCULAR VOLUME 94.1 fl (80.0-96.0); RED CELL DISTRIBUTION WIDTH 14.4 % (11.5-14.5); WHITE BLOOD COUNT 7.1 K/mm3 (4.0-10.0)
[2016-05-24] MEDS: FERROUS GLUCONATE 324 MG TAB PO SCH (09:00)
[2016-05-24] MEDS: ASPIRIN 81 MG ENTERIC TAB PO SCH (09:26)
[2016-05-24] MEDS: SPIRONOLACTONE 12.5MG PER 1/2 TABLET PO SCH (09:26)
[2016-05-24] MEDS: METOPROLOL SUCC (TopROL XL) 50MG **XL** TAB PO SCH (09:27)
[2016-05-24] MEDS: PANTOPRAZOLE 40MG TAB (PROTONIX) PO SCH (09:27)
[2016-05-24 14:00] VITALS: BP 137/76
[2016-05-24] MEDS: ACETAMINOPHEN 650MG ER TAB (TYLENOL ARTHRITIS) PO PRN (15:59)
--- NOTE | 2016-05-24 15:59 | IPN ---
DATE: 05/24/2016 A 75-year-old female seen at bedside. No overnight issues reported, other than continued issues with the right wrist and left knee, likely related to her osteoarthritis. We did do a repeat x-ray of her right wrist yesterday evening which did not show any bony abnormalities and only continued degenerative osteoarthritis. She denies chest pain, shortness breath, productive sputum, cough, or hemoptysis. I did speak to her at length regarding participation with physical therapy (PT) and occupational therapy (OT) for clearance to return home. OBJECTIVE: VITAL SIGNS: Temperature is 96, pulse 76, respiratory rate 18, blood pressure 137/76, SPO2 is 92% on room air. GENERAL: The patient appears to be in no acute distress. She is alert and oriented. HEENT: Unremarkable. LUNGS: Clear. HEART: Regular rate and rhythm. ABDOMEN: Soft. EXTREMITIES: No edema. No calf tenderness. No significant tenderness over the right wrist. No warmth. No erythema. LABORATORY DATA: White count 7.1, hemoglobin 11.1, platelets 330,000. Sodium 142, potassium 4.3, chloride 105, bicarbonate 20, anion gap 17, BUN 17, creatinine 0.49, glucose 191, CRP is 8.7, INR is 2.5. ASSESSMENT AND PLAN: 1. Enterococcus fecalis bacteremia, secondary to cellulitis. Continue on current antibiotics, day six of 10. We will continue to follow. She remains afebrile and white count has trended down. 2. Anemia, likely chronic disease combined with iron deficiency. Continue with ferrous sulfate. 3. Aortic valve disease. She is therapeutic on her Coumadin. Echocardiogram did not reveal any valvular vegetation. 4. Coronary artery disease. Continue on her beta amber, statin, and aspirin. 5. Hypertension. Continue with beta amber, Aldactone, and hydrochlorothiazide. Blood pressure is controlled. Consider resuming chlorthalidone on discharge. 6. Spinal stenosis with chronic pain. Continue on tramadol and Percocet. 7. Gastroesophageal reflux disease (GERD). Continue on Protonix. 8. History of medical noncompliance. She will need to participate more with physical therapy (PT), occupational therapy (OT), and anticipate discharge tomorrow.
[2016-05-24] MEDS: WARFARIN SOD 3 MG TAB PO SCH (16:00)
[2016-05-24 22:00] VITALS: BP 136/61
[2016-05-24] MEDS: MAGNESIUM OXIDE 400 MG TAB (MAG-OX) PO SCH (22:25)
[2016-05-24] MEDS: ATORVASTATIN 20 MG TAB PO SCH (22:25)
[2016-05-25] MEDS: AMPICILLIN 250 MG CAP PO SCH ×2 (05:26→09:57)
[2016-05-25] MEDS: traMADol 50 MG TAB PO SCH (05:27)
[2016-05-25 06:00] VITALS: BP 143/61
[2016-05-25 09:00] VITALS: BP 170/79
[2016-05-25] MEDS: PANTOPRAZOLE 40MG TAB (PROTONIX) PO SCH (09:00)
[2016-05-25] MEDS: METOPROLOL SUCC (TopROL XL) 50MG **XL** TAB PO SCH (09:00)
[2016-05-25] MEDS: SPIRONOLACTONE 12.5MG PER 1/2 TABLET PO SCH (09:00)
[2016-05-25] MEDS: ASPIRIN 81 MG ENTERIC TAB PO SCH (09:00)
[2016-05-25] MEDS: FERROUS GLUCONATE 324 MG TAB PO SCH (09:00)
[2016-05-25] MEDS: PERCOCET 5MG/325MG TAB PO PRN (09:53)
--- NOTE | 2016-05-25 17:45 | DSES ---
DATE OF ADMISSION: 05/15/2016 DATE OF DISCHARGE: 05/25/2016 PRIMARY CARE PROVIDER: Grecia Jimenez. CONSULTANTS: Felicitas Garcia with pain management. PROCEDURES: None. COMPLICATIONS: None. ADMISSION/DISCHARGE DIAGNOSES: 1. Cellulitis involving the right wrist 2. Enterococcus faecalis bacteremia secondary to cellulitis skin abrasion on the right wrist. 3. Anemia likely anemia of chronic disease with iron deficiency. 4. Aortic valve disease, therapeutic on Coumadin. Echocardiogram did not reveal any valvular vegetation. 5. Coronary artery disease. 6. Hypertension. 7. Spinal stenosis with chronic pain syndrome. 8. Gastroesophageal reflux disease (GERD). 9. History of medical noncompliance. BRIEF HOSPITAL COURSE: Ms. Bruce is a 75-year-old female who presented to the emergency department 05/15/2016, with right wrist erythema, tenderness and warmth. [place] to have cellulitis, subjective fevers. White count initially of 11.8, C-reactive protein (CRP) of 18.2 which has trended down nicely. At any rate, she was admitted for intravenous (IV) antibiotics, gentle IV fluid. Pain management was consulted due to her ongoing history of arthritic pain. She also complained of some left knee pain which x-rays revealed advanced osteoarthritis. A wrist MRI was completed on 05/19/2016. There was no evidence of osteomyelitis at that time, but there was a comment of possible bone scan or CT might be helpful to further delineate. The patient was very apprehensive either one of these studies. She did improve clinically. White count remained stable. CRP decreased. She remained afebrile and we were able to repeat an x-ray of the right wrist on 05/23/2016. Although this is suboptimal, it did not show any significant acute changes of the wrist. She does have noted degenerative changes that were described, and on date of discharge, she was felt to be appropriate and did well with physical therapy. PHYSICAL EXAMINATION: VITAL SIGNS: Temperature 97.3, pulse 67, respiratory rate is 15, blood pressure 143/61, sPO2 is 95% on room air. GENERAL: The patient appears to be in no acute distress, alert and oriented. HEENT: Unremarkable. LUNGS: Clear. HEART: Regular rate, rhythm. ABDOMEN: Soft. EXTREMITIES: No edema. No calf tenderness. LABORATORY DATA: White count is 7.1, hemoglobin 11.1, platelets 330,000. CRP today is 8.7, which has shown a nice downward trend from admission. Sodium 142, potassium 4.3, chloride 105, bicarb 20, anion gap 17, BUN 17, creatinine 0.49, glucose 191. Her repeat blood cultures have been negative times two for five days. DISCHARGE CONDITION: Good. DISPOSITION: Discharge to home. Activity as tolerated. Followup with primary care provider in a week. Regular diet. Given and finish prescription of ampicillin. MEDICATION LIST: - ampicillin 150 mg every six hours - ferrous gluconate 324 mg daily - Tylenol 650 mg daily every eight hours as needed - aspirin 81 mg daily - Lipitor 40 mg at bedtime - chlorthalidone 12.5 mg three times weekly - Nexium 40 mg daily - magnesium oxide 400 mg at bedtime - metoprolol succinate ER 50 mg daily - nitroglycerin sublingual 0.4 mg sublingually as needed for chest pain - spironolactone 12.5 mg daily - Tramadol 50 mg every four hours as needed - Coumadin 4 mg daily Keep followup as outlined above. She should check with her primary care provider first should symptoms worsen or progress or return the emergency department if necessary. Discharge took 35 minutes.
== END 2016-05-25 10:02 | disposition home health service (06) | DRG 603 ==
LOC: M ED 19:34 → M ED INP 22:49 → M MS5PR 05-16 01:00
PROVIDERS: ADMIT Hospitalist; ATTEND Hospitalist
DX: L03.113 Cellulitis of right upper limb (principal); R78.81 Bacteremia; M15.0 Primary generalized (osteo)arthritis; I10 Essential (primary) hypertension; K44.9 Diaphragmatic hernia without obstruction or gangrene; E11.9 Type 2 diabetes mellitus without complications; G89.29 Other chronic pain; E87.6 Hypokalemia; I25.10 Atherosclerotic heart disease of native coronary artery without angina pectoris; B95.2 Enterococcus as the cause of diseases classified elsewhere; E66.9 Obesity, unspecified; M48.00 Spinal stenosis, site unspecified; D50.9 Iron deficiency anemia, unspecified; D63.8 Anemia in other chronic diseases classified elsewhere; K21.9 Gastro-esophageal reflux disease without esophagitis; Z95.2 Presence of prosthetic heart valve; I25.2 Old myocardial infarction; Z95.1 Presence of aortocoronary bypass graft; Z96.643 Presence of artificial hip joint, bilateral; Z79.01 Long term (current) use of anticoagulants; Z79.82 Long term (current) use of aspirin; Z79.899 Other long term (current) drug therapy; Z88.8 Allergy status to other drugs, medicaments and biological substances; Z68.33 Body mass index [BMI] 33.0-33.9, adult; Z91.19 Patient's noncompliance with other medical treatment and regimen

== ENCOUNTER → 2016-06-06 | Outpatient (REF) | payer MEDICARE, OTHER ==
[~2016-06-06] MED LIST changes: +AMPI25CA PO; +ASPI81TAEC PO; +FERR32TA PO; +MAGN400T2 PO
[2016-06-06 14:02] LABS: INR 3.89
== END ==
LOC: M LABDRAW1 13:03
PROVIDERS: ATTEND Nurse Practitioner Family
DX: I48.2 Chronic atrial fibrillation (principal)

== ENCOUNTER → 2016-06-14 | Outpatient (REF) | payer MEDICARE, OTHER ==
[2016-06-14 15:30] LABS: INR 3.34
== END ==
LOC: M LABDRAW1 15:14
PROVIDERS: ATTEND Nurse Practitioner Family
DX: I48.2 Chronic atrial fibrillation (principal)

== ENCOUNTER → 2016-06-28 | Outpatient (REF) | payer MEDICARE, OTHER ==
[~2016-06-28] MED LIST changes: +AMPI250C59 PO; -AMPI25CA PO
[2016-06-28 13:24] LABS: INR 2.16
== END ==
LOC: M LABDRAW1 12:27
PROVIDERS: ATTEND Nurse Practitioner Family
DX: I48.2 Chronic atrial fibrillation (principal)

== ENCOUNTER 2016-07-10 09:08 | Inpatient (IN) | payer MEDICARE, OTHER ==
[~2016-07-10] VITALS: Ht 157.5 cm; Wt 76.0 kg
[2016-07-10] MEDS ORDERED: LIDO1PAD (09:29)
[2016-07-10] MEDS ORDERED: COUM1TAB19 PO (09:29)
--- NOTE | 2016-07-10 10:18 | REP ---
Pelvis, left hip: Three views. History: Left hip pain. Findings: The bony pelvic ring appears intact. Prosthetic hip joints are seen bilaterally in good position. There are degenerative changes in the lumbosacral junction. Vascular calcification is noted in the proximal thighs bilaterally. AP and frog-leg views of the left hip show no evidence of fracture or prosthetic hip dislocation. No bony destructive lesion is seen. Impression: Status post bilateral hip replacement. Vascular calcification. No acute bony abnormality. Signed by Elias Gaxiola MD 07/10/2016 12:08 P
--- NOTE | 2016-07-10 10:20 | REP ---
LUMBAR SPINE, SIX VIEWS: HISTORY: Left hip pain. There is no acute fracture or subluxation. There is an old compression fracture of the T12 vertebral body with minimal height loss. The intervertebral discs are decreased in height. Vacuum phenomenon is present at the L3-4 through L5-S1 levels. These findings are consistent with disc degeneration. Osteophytes are present throughout the lumbar spine. There is narrowing of the L1-2 through L5-S1 facet joints. There are 8 mm of grade 1 spondylolisthesis of L4 on 5 and 4 mm of grade 1 spondylolisthesis of L5 on S1. The patient is status post bilateral hip arthroplasty. IMPRESSION: Degenerative change as described above. Signed by Ambrose Mercedes MD 07/10/2016 10:22 A
[2016-07-10] MEDS ORDERED: NORCO, ANEXSIA 5/325MG TABLET (HYDROcodone/ACETAMINOPHEN) PO ONE (11:00)
[2016-07-10] MEDS ORDERED: LIDO5DIS36 TD (16:54)
[2016-07-10] MEDS ORDERED: WARFARIN SOD 4 MG TAB PO SCH (17:00)
[2016-07-10] MEDS ORDERED: WARFARIN SOD 3 MG TAB PO SCH (17:00)
[2016-07-10] MEDS ORDERED: MORPHINE 2 MG/ML 1ML SYRINGE IV PRN (17:30)
[2016-07-10] MEDS ORDERED: LIDOCAINE 5% (LIDODERM) PATCH TD SCH (17:30)
[2016-07-10] MEDS: PERCOCET 5MG/325MG TAB PO PRN (18:21)
--- NOTE | 2016-07-10 20:36 | HPE ---
DATE OF ADMISSION: 07/10/2016 PRIMARY CARE PROVIDER: Grecia Jimenez NP CHIEF COMPLAINT: Left hip pain. HISTORY OF PRESENT ILLNESS: Ms. Bruce is a 75-year-old female with a past medical history of osteoarthritis, aortic valve disorder status post repair, who presented to the emergency department today with complaints of left hip pain. At baseline, the patient has diffuse pain secondary to osteoarthritis; however, yesterday morning after taking a nap while lying in her chair, upon waking up and attempting to get out of her chair started having excruciating left hip pain, described as needles going through her hip. Worse with ambulation. Nothing seemed to make it better. States that for at least four years, she was on Dilaudid and somehow this was tapered off. She was prescribed tramadol, which provided no relief of symptoms. She stated that she used Lidoderm patch in the past and her last use was last night, though it has minimal relief for her pain, she still requests for it today. Denies any paresthesia, paralysis, bowel or urinary incontinence. Reports that because of her pain she has been using her walker. No weakness, falls or injury. ED provider discussed case with orthopedist clerk television production and at this time, no surgery was recommended. PAST MEDICAL HISTORY: 1. Osteoarthritis of multiple joints, including knees, ankles, hands, feet and hips. 2. Spinal stenosis. 3. Aortic valve dysfunction, status post repair, pig valve 2016. There is documentation of myocardial infarction, though the patient denies this. 4. Hypertension. 5. Hiatal hernia. 6. Diet controlled diabetes. PAST SURGICAL HISTORY: 1. Bilateral total hip replacement. 2. Cholecystectomy. 3. Bilateral carpal tunnel release. 4. Aortic valve replacement. 5. Pig valve. 6. Coronary artery bypass graft (CABG). 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 HOME MEDICATIONS: - Tylenol 650 mg every 8 hours as needed - aspirin 81 mg by mouth daily - Lipitor 80 mg at night - chlorthalidone 12.5 mg three times a week on Sunday, Sunday and Sunday - Nexium 40 mg by mouth daily - Lidoderm patch every 12 hours, 5% - magnesium oxide 400 mg at night - metoprolol succinate 50 mg by mouth daily - Nitrostat 0.4 mg sublingually as needed - spironolactone 12.5 mg by mouth daily - Tramadol 50 mg by mouth every 6 hours as needed - Coumadin on Sunday 4 mg and 3 mg the rest of the week FAMILY HISTORY: Father with heart disease and valvular replacement. Mother with heart disease. One brother also with mechanical valve replacement. SOCIAL HISTORY: The patient is a never smoker. Used to drink but only in her 20s. No drug use. Currently lives independently by herself. Uses a walker. No pets at home. 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 Travel includes [employer], [employer], [facility] [address], [place], [place], [place], [place]. No history of TB or asbestos she is aware of. REVIEW OF SYSTEMS: CONSTITUTIONAL: Denies fevers, chills, rigors, weight changes. HEENT: Denies headaches, lightheadedness, dizziness, blurry vision, difficulty with speech and swallow. CARDIOVASCULAR: Denies chest pain, paroxysmal nocturnal dyspnea, pillow orthopnea, lower extremity edema. PULMONARY: Denies shortness of breath, productive cough, hemoptysis. GASTROINTESTINAL: Denies hematochezia, melena, or hematemesis, nausea, vomiting, diarrhea, constipation. GENITOURINARY: No dysuria, frequency or hematuria. MUSCULOSKELETAL: Positive for pain, as mentioned above. NEUROLOGICAL: Positive for occasional paresthesias to her right fingers. ENDOCRINE: Positive for diet controlled diabetes. LYMPHATICS: No lumps, bumps, or swelling anywhere in neck, axilla, or groin. HEMATOLOGY: No abnormal bleeding or bruising. PHYSICAL EXAMINATION: VITALS: Blood pressure 144/67, heart rate 85, temperature 100, respiratory rate 18, pulse oximetry 98% on room air. Intake and output not documented. GENERAL: Patient is lying in bed flat, comfortable in no acute distress. She is alert, awake, oriented times three. Pleasant, cooperative. HEENT: Normocephalic, atraumatic. Moist oral mucosa. Dentures in place. No thrush or lesions appreciated. Eyes: Extraocular movement intact. Pupils are equal and reactive to light. NECK: Supple, trachea midline. No neck vein distention. CHEST: Symmetric chest rise, no accessory muscle use. HEART: [employer]chand[employer] heart sound in the right second intercostal border. Regular S1 , S2. LUNGS: Breath sounds were clear to auscultation bilaterally. ABDOMEN: Soft, nontender, nondistended. Bowel sounds present. No guarding. No rebound. EXTREMITY: Trace pedal edema. Pedal pulses present bilaterally. Strength is 5/5 in bilateral upper extremities. The patient refused to have her strength tested bilateral lower extremities. Sensory is intact. INTEGUMENTARY: No obvious rashes or lesions appreciated. PSYCHIATRIC: Normal affect, although at times is teary from her pain. LABORATORY DATA : Laboratories are not ordered. Lumbar x-ray showed degenerative changes. There is an old compression fraction of T12 vertebral body with minimal height loss. Hip and pelvis x-ray showed status post bilateral hip replacement, vascular calcification, no bony abnormality. IMPRESSION AND PLAN: Ms. Bruce is a 75-year-old female with a history of osteoarthritis who presented with left hip pain. 1. Left hip pain. Likely secondary to her long-standing osteoarthritis. Apparently, emergency department provider has spoken to orthopedist clerk television production, who , at this time, does not recommend surgery due to her comorbidities, including mechanical valve. The patient will be admitted and managed for pain control. Reportedly has been on Dilaudid for many years in the past. We will continue Lidoderm patch, morphine, and consult pain management. 2. Aortic valve disease. Status post valvular repair. INR will be checked. 3. Coronary artery disease. Continue aspirin, Lipitor, Toprol XL 50 mg daily. 4. Hypertension. Continue Toprol XL, spironolactone 12.5 mg by mouth daily, chlorthalidone 12.5 mg by mouth daily. 5. Gastroesophageal reflux disease (GERD). Continue proton pump inhibitor. 6. Deep vein thrombosis (DVT) prophylaxis. Sequential compression device (SCD) , thromboembolic compression stockings (TEDS) and on Coumadin for mechanical valve with a goal of 2.5 to 3.5. My preceptor for this patient encounter was Dr. Suarez. The preceptor was physically present in the building during the encounter and was fully available. As needed, all aspects of the patient interview, examination, medical decision making process, and medical care plan development were reviewed and approved by the preceptor. The preceptor is aware and concurs with the plan as stated in the body of this note and will attest to such by his/her cosignature. FAUSTINO
[2016-07-10 20:55] VITALS: BP 130/60
[2016-07-10] MEDS: **NOTE PATIENT COMMENT** MISC XX SCH (21:00)
[2016-07-10] MEDS: MAGNESIUM OXIDE 400 MG TAB (MAG-OX) PO SCH (21:23)
[2016-07-10] MEDS: ATORVASTATIN 20 MG TAB PO SCH (21:23)
[2016-07-11] MEDS: PERCOCET 5MG/325MG TAB PO PRN ×4 (00:53→20:45)
[2016-07-11 06:00] VITALS: BP 121/65
[2016-07-11 06:45] LABS: MEAN CORPUSCULAR HEMOGLOBIN 29.8 pg (27.0-33.0); MEAN CORPUSCULAR HGB CONC 31.7 g/dl (32.0-36.5); RED CELL DISTRIBUTION WIDTH 15.4 % (11.5-14.5); WHITE BLOOD COUNT 7.2 K/mm3 (4.0-10.0)
[2016-07-11 06:49] LABS: INR 1.86
[2016-07-11 07:05] LABS: ANION GAP 8 MEQ/L (8-16); BLOOD UREA NITROGEN 14 MG/DL (7-18); CALCIUM LEVEL 9.5 MG/DL (8.8-10.2); CARBON DIOXIDE LEVEL 27 MEQ/L (21-32); CHLORIDE LEVEL 105 MEQ/L (98-107); CREATININE FOR GFR 0.48 MG/DL (0.55-1.02); GLOMERULAR FILTRATION RATE > 60.0 (>39); GLUCOSE, FASTING 130 MG/DL (83-110); MAGNESIUM LEVEL 1.9 MG/DL (1.8-2.4); POTASSIUM SERUM 3.8 MEQ/L (3.5-5.1); SODIUM LEVEL 140 MEQ/L (136-145)
[2016-07-11] MEDS: METOPROLOL SUCC (TopROL XL) 50MG **XL** TAB PO SCH (08:49)
[2016-07-11] MEDS: SPIRONOLACTONE 25 MG TAB PO SCH (08:49)
[2016-07-11] MEDS: ASPIRIN 81 MG ENTERIC TAB PO SCH (08:49)
[2016-07-11] MEDS: CHLORTHALIDONE 12.5MG PER 1/2 TABLET PO SCH ×2 (08:50→08:55)
[2016-07-11] MEDS: PANTOPRAZOLE 40MG TAB (PROTONIX) PO SCH (08:50)
[2016-07-11] MEDS: LIDOCAINE 5% (LIDODERM) PATCH TD SCH (08:51)
[2016-07-11] MEDS ORDERED: LIDOCAINE 5% (LIDODERM) PATCH TD SCH (09:00)
--- NOTE | 2016-07-11 10:18 | IPNPDOC ---
Subjective Date Seen The patient was seen on 07/11/16. Subjective Chief Complaint/HPI The patient is a 75-year-old female admitted with a reason for visit of Chronic Back Pain;Chronic L Hip Pain. General: Denies: Chills Constitutional: Denies: Chills Eyes: Denies: Conjunctivae inflammation, Eyelid inflammation, Pain, Vision change ENT: Denies: Head Aches Skin: Denies: Lesions, Rash Pulmonary: Denies: Cough, Dyspnea Cardiovascular: Denies: Chest Pain, Edema, Lt Headedness, Orthopnea, Palpitations Gastrointestinal: Denies: Nausea, Vomiting Neurological: Denies: Numbness, Weakness Psych: Reports: Mood Normal Objective Physical Examination General Exam: Positive: Alert, Cooperative, No Acute Distress Eye Exam: Positive: Conjunctiva & lids normal, EOMI, Negative: Ptosis, Sclera icteric ENT Exam: Positive: Atraumatic, Mucous membr. moist/pink, Nares Patent, Pharynx Normal, Tongue Midline Neck Exam: Positive: Supple Chest Exam: Positive: Clear to auscultation, Normal air movement, Negative: Rales, Rhonchi, Wheezing Heart Exam: Positive: Normal S1, Normal S2 (mechanical valve ), Rate Normal Abdomen Exam: Positive: Normal bowel sounds, Soft, Negative: BS Hyperactive, BS Hypoactive, Hepatospenomegaly, Tenderness Extremity Exam: Positive: Normal pulses, Negative: Clubbing, Cyanosis, Edema, Swelling, Tenderness Psych Exam: Positive: Mental status NL Assessment /Plan Problems (1) Chronic left hip pain Status: Chronic Response to Treatment: Stable Problem Text: patient states left hip hurts with minor movements, is asking for Dilaudid pain controlled with Percocet medical therapy Pt is not an ortho. sx. candidate lidocaine patch, morphine pain mgmt consult (2) HTN (hypertension) Status: Chronic Response to Treatment: Stable Problem Text: continue with toprol XL and chlorthalidone medical therapy stable at 120/56 (3) Aortic valve disease Status: Chronic Response to Treatment: Stable Problem Text: s/p valve repair pt 21.5 I [id number] (4) CAD (coronary artery disease) Status: Chronic Response to Treatment: Stable Problem Text: c/w aspirin therapy and toprol xl 50 mg QD (5) GERD (gastroesophageal reflux disease) Status: Chronic Response to Treatment: Stable Problem Text: c/w PPI (6) DVT prophylaxis Status: Acute Response to Treatment: Stable Problem Text: SCD TEDS Plan/VTE VTE Prophylaxis Ordered?: Yes VS, I&O, 24H, Fishbone Vital Signs/I&O Vital Signs Date Time Temp Pulse Resp B/P Pulse Ox O2 Delivery O2 Flow Rate FiO2 07/11/16 08:49 75 120/56 07/11/16 07:22 18 07/11/16 06:00 98.0 93 Room Air I&O- Last 24 Hours up to 6 AM 07/11/16 06:00 Intake Total 275 ml Output Total 950 ml Balance -675 ml Laboratory Data 24H LABS Laboratory Tests 2 07/11/16 06:22: Anion Gap 8, Blood Urea Nitrogen 14, Creatinine 0.48L, Sodium Level 140, Potassium Level 3.8, Chloride Level 105, Carbon Dioxide Level 27, Calcium Level 9.5, Glomerular Filtration Rate > 60.0, Magnesium Level 1.9, Prothromb Time International Ratio 1.86, Prothrombin Time 21.5H CBC/BMP Laboratory Tests 07/11/16 06:22 Calcium Level 9.5, Red Blood Count 3.61 L, Mean Corpuscular Volume 94.0, Mean Corpuscular Hemoglobin 29.8, Mean Corpuscular Hemoglobin Concent 31.7 L, Red Cell Distribution Width 15.4 H GME ATTESTATION GME ATTESTATION My preceptor for this patient encounter was physically present in the building during the encounter and was fully available. As needed, all aspects of the patient interview, examination, medical decision making process, and medical care plan development were reviewed and approved by the preceptor. Preceptor is aware and concurs with the plan as stated in the body of this note and will attest to such by his/her cosignature. GME ATTESTATION GME ATTESTATION My preceptor for this patient encounter was physically present in the building during the encounter and was fully available. As needed, all aspects of the patient interview, examination, medical decision making process, and medical care plan development were reviewed and approved by the preceptor. Preceptor is aware and concurs with the plan as stated in the body of this note and will attest to such by his/her cosignature. SAMMIE CUELLAR DO Jul 11, 2016 10:18
[2016-07-11] MEDS: ACETAMINOPHEN 650MG ER TAB (TYLENOL ARTHRITIS) PO PRN ×2 (11:42→23:59)
[2016-07-11] MEDS ORDERED: ISOVUE-370 76% 100ML VIAL (Q9967) As Ordered ONE (12:36)
--- NOTE | 2016-07-11 13:33 | REP ---
CT left hip without contrast: History: Chronic left hip pain. The patient declined IV contrast. Comparison radiographs are from July 10, 2016. CT findings: Bilateral hip replacements are noted. The left hip prosthetic components are well aligned with respect to each other and their blackfeet bones. No periarticular fluid collection or inflammatory change is seen. No acute bony destructive lesion is seen. There is no CT evidence to suggest fracture or loosening. No CT evidence of infection is seen. There is mild degenerative spurring at the symphysis pubis. Vascular calcification is noted. No soft tissue mass or adenopathy is seen. Impression: Status post left hip replacement. No abnormal fluid collection, inflammatory reaction, or acute bony abnormality. Signed by Elias Gaxiola MD 07/11/2016 03:40 P
[2016-07-11 14:00] VITALS: BP 126/61
[2016-07-11] MEDS: WARFARIN SOD 3 MG TAB PO SCH (17:56)
[2016-07-11] MEDS: **NOTE PATIENT COMMENT** MISC XX SCH (17:57)
--- NOTE | 2016-07-11 18:50 | CR ---
DATE OF CONSULTATION: 07/11/2016 CHIEF COMPLAINT: 1. Left hip pain. 2. Low back pain. 3. Generalized joint pain. HISTORY OF PRESENT ILLNESS: Laureen is a 75-year-old female who was admitted yesterday for complaints of severe left hip pain and inability to walk. Awakens easily to verbal stimuli. Hard to keep the patient on track with recollecting past medical history. States she has had pain since she was a teenager, which initially began in her knees. States that she was, at one point, medicated with Dilaudid one tablet daily approximately two years ago. That was very helpful at reducing her pain. States she never took more than one tablet a day. Pain has gotten much worse. Hospitalization in 03/2016 for arm pain. Has seen multiple medical providers and has left practices disgruntled for multiple different reasons that she tells me about today. States she saw Dr. Barajas recently, a local pain specialist. Very hard to get the patient to focus on chief complaint, but states that she is unable to move because of her pain. Attempts at moving her today unassisted failed. She refused physical therapy today. Currently receiving Percocet for pain control which, in review of nursing notes, reduces her pain from a 5 to a 0. States she has been on tramadol approximately four times a day from primary care. States that this makes her see "squiggly lines." PAST MEDICAL HISTORY: 1. Osteoarthritis of multiple joints including knees, ankles, feet, hands. 2. Spinal stenosis. 3. Aortic valve dysfunction status post aortic valve replacement. 4. Previous myocardial infarction status post coronary artery bypass graft. 5. Hypertension. 6. Hiatal hernia. PAST SURGICAL HISTORY: 1. Left total hip. 2. Right total hip. 3. Cholecystectomy. 4. Right and left knee arthroscopies. 5. Bilateral carpal tunnel release. 6. Aortic root valve replacements. 7. Coronary artery bypass graft. FAMILY HISTORY: Family history of heart disease. Father had heart disease. The patient has a brother who has a mechanical valve and her father had a valve replacement. SOCIAL HISTORY: Denies smoking. Denies alcohol use. Denies recreational drug use. She lives independently. ALLERGIES: Anaphylactic reaction to HEPARIN. REVIEW OF SYSTEMS: CONSTITUTIONAL: Denies fever or weight changes. HEENT: Denies headache. Denies sore throat or nasal congestion. CARDIOVASCULAR: Denies chest pain or shortness of breath. RESPIRATORY: Denies cough or history of chronic bronchitis. GASTROINTESTINAL (GI): Denies abdominal pain. Reporting normal bowel movements. GENITOURINARY: Denies urinary incontinence, dysuria or hematuria. MUSCULOSKELETAL: Admits to joint pain in shoulders, back, knees, wrists, hands and feet. NEUROLOGIC: Occasional numbness and tingling in the lower extremities is reported. Denies seizure disorder. HEMATOLOGIC: On chronic Coumadin therapy at home. Denies chronic anemia. ENDOCRINE: Positive for diabetes, which is diet controlled. PHYSICAL EXAMINATION: Awake, alert, pleasant. VITAL SIGNS: 99.7, 97, 18, blood pressure 126/61, oxygen saturation 95% on room air. CARDIAC: S1, S2. Normal rate and rhythm. RESPIRATORY: Lung sounds clear bilaterally. Nonlabored. ABDOMEN: Soft and nontender. EXTREMITIES: Are warm. No swelling noted. Patient is unable to roll to a side-lying position. The patient is refusing to sit up due to extreme pain. Limited physical examination. ASSESSMENT: Chronic generalized joint pain. PLAN: Would recommend continued attempts at physical therapy. May consider trial of Dilaudid 2 mg tablet daily, but if it does not show any improvement in her condition or ability to tolerate activity, that should be discontinued. Percocet 5/325 one tablet every 6 hours as needed for discharge would be recommended. Recommend discontinuing tramadol due to patient's complaints of visual side effects. She is not a candidate for nonsteroidal anti-inflammatory drugs. I do not feel she would be a candidate for interventional therapy. Recommend Retail Marketing Specialist evaluation.
[2016-07-11] MEDS: ATORVASTATIN 20 MG TAB PO SCH (20:44)
[2016-07-11] MEDS: MAGNESIUM OXIDE 400 MG TAB (MAG-OX) PO SCH (20:45)
[2016-07-11] MEDS ORDERED: **NOTE PATIENT COMMENT** MISC XX SCH (21:00)
[2016-07-11 22:00] VITALS: BP 146/68
[2016-07-12] MEDS: PERCOCET 5MG/325MG TAB PO PRN ×2 (03:13→13:37)
[2016-07-12 06:00] VITALS: BP 139/70
[2016-07-12] MEDS ORDERED: MIRALAX *UNIT DOSE* 17GM PACKET PO PRN (06:30)
[2016-07-12 07:08] LABS: MEAN CORPUSCULAR HEMOGLOBIN 30.7 pg (27.0-33.0); MEAN CORPUSCULAR HGB CONC 32.7 g/dl (32.0-36.5); MEAN CORPUSCULAR VOLUME 93.7 fl (80.0-96.0); RED CELL DISTRIBUTION WIDTH 15.3 % (11.5-14.5); WHITE BLOOD COUNT 6.7 K/mm3 (4.0-10.0)
[2016-07-12 07:16] LABS: INR 1.97
[2016-07-12 07:28] LABS: ANION GAP 7 MEQ/L (8-16); BLOOD UREA NITROGEN 17 MG/DL (7-18); CALCIUM LEVEL 9.6 MG/DL (8.8-10.2); CARBON DIOXIDE LEVEL 26 MEQ/L (21-32); CHLORIDE LEVEL 107 MEQ/L (98-107); GLOMERULAR FILTRATION RATE > 60.0 (>39); GLUCOSE, FASTING 128 MG/DL (83-110); MAGNESIUM LEVEL 1.9 MG/DL (1.8-2.4); SODIUM LEVEL 140 MEQ/L (136-145)
[2016-07-12] MEDS ORDERED: PERCOCET 5MG/325MG TAB PO SCH (09:00)
[2016-07-12] MEDS: LIDOCAINE 5% (LIDODERM) PATCH TD SCH ×2 (09:00→09:33)
[2016-07-12] MEDS: CHLORTHALIDONE 12.5MG PER 1/2 TABLET PO SCH (09:31)
[2016-07-12] MEDS: SPIRONOLACTONE 25 MG TAB PO SCH (09:31)
[2016-07-12] MEDS: ASPIRIN 81 MG ENTERIC TAB PO SCH (09:31)
[2016-07-12] MEDS: PERCOCET 5MG/325MG TAB PO SCH ×3 (09:31→21:07)
[2016-07-12] MEDS: METOPROLOL SUCC (TopROL XL) 50MG **XL** TAB PO SCH (09:32)
[2016-07-12] MEDS: PANTOPRAZOLE 40MG TAB (PROTONIX) PO SCH (09:32)
--- NOTE | 2016-07-12 09:41 | IPNPDOC ---
Subjective Date Seen The patient was seen on 07/12/16. Subjective Chief Complaint/HPI The patient is a 75-year-old female admitted with a reason for visit of Chronic Back Pain;Chronic L Hip Pain. General: Denies: Chills, Fatigue, Night Sweats Constitutional: Denies: Chills, Fever Eyes: Denies: Conjunctivae inflammation, Eyelid inflammation, Vision change ENT: Denies: Head Aches Skin: Denies: Bruising, Jaundice, Lesions, Rash Pulmonary: Denies: Cough, Dyspnea Cardiovascular: Denies: Chest Pain, Palpitations Gastrointestinal: Denies: Nausea, Vomiting Musculoskeletal: Reports: Other Symptoms (continued l hip pain, pt states hurts more with ambulation) Neurological: Denies: Numbness, Weakness Psych: Reports: Mood Normal Objective Physical Examination General Exam: Positive: Alert, Cooperative, No Acute Distress Eye Exam: Positive: Conjunctiva & lids normal, EOMI, Negative: Ptosis, Sclera icteric ENT Exam: Positive: Atraumatic, Mucous membr. moist/pink, Nares Patent, Pharynx Normal, Tongue Midline Neck Exam: Positive: Supple Chest Exam: Positive: Clear to auscultation, Normal air movement, Negative: Rales, Rhonchi, Wheezing Heart Exam: Positive: Normal S1, Normal S2 (mechanical valve sound), Rate Normal Abdomen Exam: Positive: Normal bowel sounds, Soft, Negative: BS Hyperactive, BS Hypoactive, Hepatospenomegaly, Tenderness Extremity Exam: Positive: Normal pulses, Other (tender to palpitation in left hip), Negative: Clubbing, Cyanosis, Edema, Swelling, Tenderness Psych Exam: Positive: Mental status NL Assessment /Plan Problems (1) Chronic left hip pain Status: Chronic Response to Treatment: Stable Problem Text: again patient states left hip hurts with minor movements CT of left hip unremarkable will order OT to treat and eval pt today pain controlled with Percocet medical therapy Pt is not an ortho. sx. candidate lidocaine patch, morphine pain mgmt consult-recommend continued Percocet on d/c, trial of dilaudid inpt.if need be & physical therapy-appreciate their help (2) HTN (hypertension) Status: Chronic Response to Treatment: Stable Problem Text: continue with toprol XL and chlorthalidone medical therapy stable at 139/70 (3) Aortic valve disease Status: Chronic Response to Treatment: Stable Problem Text: s/p valve repair pt .5 I NR 1.97 on 07-12-16 (4) CAD (coronary artery disease) Status: Chronic Response to Treatment: Stable Problem Text: c/w aspirin therapy and toprol xl 50 mg QD (5) GERD (gastroesophageal reflux disease) Status: Chronic Response to Treatment: Stable Problem Text: c/w PPI (6) DVT prophylaxis Status: Acute Response to Treatment: Stable Problem Text: SCD TEDS Plan/VTE VTE Prophylaxis Ordered?: Yes VS, I&O, 24H, Fishbone Vital Signs/I&O Vital Signs Date Time Temp Pulse Resp B/P Pulse Ox O2 Delivery O2 Flow Rate FiO2 07/12/16 09:32 79 138/67 07/12/16 09:31 18 07/12/16 06:00 97.8 95 Room Air I&O- Last 24 Hours up to 6 AM 07/12/16 05:59 Intake Total 1135 ml Output Total 1325 ml Balance -190 ml Laboratory Data 24H LABS Laboratory Tests 2 07/12/16 06:55: Anion Gap 7L, Blood Urea Nitrogen 17, Creatinine 0.50L, Sodium Level 140, Potassium Level 4.0, Chloride Level 107, Carbon Dioxide Level 26, Calcium Level 9.6, Glomerular Filtration Rate > 60.0, Magnesium Level 1.9, Prothromb Time International Ratio 1.97, Prothrombin Time 22.5H CBC/BMP Laboratory Tests 07/12/16 06:55 Calcium Level 9.6, Red Blood Count 3.50 L, Mean Corpuscular Volume 93.7, Mean Corpuscular Hemoglobin 30.7, Mean Corpuscular Hemoglobin Concent 32.7, Red Cell Distribution Width 15.3 H GME ATTESTATION GME ATTESTATION My preceptor for this patient encounter was physically present in the building during the encounter and was fully available. As needed, all aspects of the patient interview, examination, medical decision making process, and medical care plan development were reviewed and approved by the preceptor. Preceptor is aware and concurs with the plan as stated in the body of this note and will attest to such by his/her cosignature. SAMMIE CUELLAR DO Jul 12, 2016 09:41 JEREMIAH PORTILLO MD Jul 13, 2016 07:09
[2016-07-12] MEDS: SENOKOT S TAB PO PRN (09:46)
[2016-07-12 14:00] VITALS: BP 129/62
[2016-07-12] MEDS: WARFARIN SOD 3 MG TAB PO SCH (17:22)
[2016-07-12] MEDS: **NOTE PATIENT COMMENT** MISC XX SCH (21:02)
[2016-07-12] MEDS: MAGNESIUM OXIDE 400 MG TAB (MAG-OX) PO SCH (21:06)
[2016-07-12] MEDS: ATORVASTATIN 20 MG TAB PO SCH (21:07)
[2016-07-12 22:00] VITALS: BP 142/64
[2016-07-13] MEDS: PERCOCET 5MG/325MG TAB PO PRN (01:22)
[2016-07-13 06:29] VITALS: BP 128/64
[2016-07-13 06:32] LABS: MEAN CORPUSCULAR HEMOGLOBIN 29.7 pg (27.0-33.0); MEAN CORPUSCULAR HGB CONC 31.4 g/dl (32.0-36.5); MEAN CORPUSCULAR VOLUME 94.7 fl (80.0-96.0); WHITE BLOOD COUNT 7.6 K/mm3 (4.0-10.0)
[2016-07-13 06:44] LABS: ANION GAP 7 MEQ/L (8-16); BLOOD UREA NITROGEN 15 MG/DL (7-18); CALCIUM LEVEL 9.2 MG/DL (8.8-10.2); CARBON DIOXIDE LEVEL 25 MEQ/L (21-32); CHLORIDE LEVEL 104 MEQ/L (98-107); CREATININE FOR GFR 0.57 MG/DL (0.55-1.02); GLOMERULAR FILTRATION RATE > 60.0 (>39); GLUCOSE, FASTING 143 MG/DL (83-110); INR 2.1; MAGNESIUM LEVEL 1.7 MG/DL (1.8-2.4); POTASSIUM SERUM 4.2 MEQ/L (3.5-5.1); SODIUM LEVEL 136 MEQ/L (136-145)
[2016-07-13] MEDS: CHLORTHALIDONE 12.5MG PER 1/2 TABLET PO SCH (09:00)
[2016-07-13] MEDS: PERCOCET 5MG/325MG TAB PO SCH (09:00)
[2016-07-13] MEDS: MOM 30ML SUSPENSION UDC PO PRN ×2 (10:24→10:32)
[2016-07-13] MEDS: LIDOCAINE 5% (LIDODERM) PATCH TD SCH (10:24)
[2016-07-13] MEDS: SENOKOT S TAB PO PRN (10:24)
[2016-07-13] MEDS: ASPIRIN 81 MG ENTERIC TAB PO SCH (10:24)
[2016-07-13] MEDS: SPIRONOLACTONE 25 MG TAB PO SCH (10:24)
[2016-07-13] MEDS: PANTOPRAZOLE 40MG TAB (PROTONIX) PO SCH (10:24)
[2016-07-13] MEDS: METOPROLOL SUCC (TopROL XL) 50MG **XL** TAB PO SCH (10:28)
[2016-07-13] MEDS ORDERED: HYDROmorphone 2 MG TAB PO ONE ×2 (10:30→15:00)
[2016-07-13] MEDS ORDERED: NALOXONE INJ 0.4 MG/1 ML VIAL (J2310) IV PRN (10:30)
[2016-07-13] MEDS ORDERED: MAG SULF 1GM/100ML (MAG RUN) 1 GM in APPROPRIATE DILUENT 1 EA IV ONE (10:45)
--- NOTE | 2016-07-13 10:58 | IPN ---
DATE OF SERVICE: 07/13/2016 The patient seen and examined at the bedside. Chart has been reviewed. The patient complains of severe pain on the left hip when she ambulates. The patient had no pain sitting on the bed with her legs down, but when she was repositioned , she had very sharp pain at the left hip. Vital signs: Temperature 98.6, pulse 90, respiratory rate 18, blood pressure 137/66, 96% on room air. Lungs are clear to auscultation. No wheezing, rales, or rhonchi. Heart: S1, S2, sinus rhythm. Abdomen: Is soft, nontender, nondistended. Obese abdomen. Extremities: No tender palpation in the left hip, intertrochanteric area. No cyanosis, clubbing, or any pitting edema. LABORATORY DATA: 07/13/2016 CBC and metabolic panel have been reviewed, notable for magnesium of 1.7. IMAGING STUDIES: Have been reviewed. ASSESSMENT AND PLAN: This is a 75-year-old female with past medical history of aortic valve dysfunction repaired with a pig valve in 2017, spinal stenosis, hypertension, hiatal hernia, diet-controlled diabetes, bilateral hip replacement , cholecystectomy, bilateral carpal tunnel release, multiple joint arthritis of the knees, hands, feet, and hips, coronary artery bypass graft (CABG), presents with history of heparin-induced thrombocytopenia, presents with left hip pain. CURRENT ISSUES: 1. Left hip pain. CT extremity shows status post left hip. No abnormal fluid collection, inflammatory reaction, or acute bony abnormality. Lumbar spine x- ray shows spondylolisthesis, status post bilateral hip arthroplasty, degenerative disc disease. The patient has had no significant relief with Percocet. Therefore, trial of Dilaudid and continued physical therapy, lidocaine patch. 2. Hypertension. On metoprolol, chlorthalidone, spironolactone. 3. Aortic valve disease. Status post valve repair. On chronic anticoagulation. Resumed on home dose of Coumadin and aspirin. 4. History of coronary artery bypass graft (CABG). Continue home medications: aspirin, Lipitor, chlorthalidone, spironolactone, metoprolol, and warfarin. DISPOSITION: Rehabilitation only. Defer to patient and family services (PFS) disposition MTDD
[2016-07-13] MEDS ORDERED: MAGNESIUM OXIDE 400 MG TAB (MAG-OX) PO ONE (12:30)
[2016-07-13] MEDS: HYDROCORTISONE 0.5% CREAM 30 GM TOP SCH ×2 (13:06→21:28)
[2016-07-13] MEDS: ACETAMINOPHEN 650MG ER TAB (TYLENOL ARTHRITIS) PO PRN (13:06)
[2016-07-13 14:00] VITALS: BP 126/60
[2016-07-13] MEDS: WARFARIN SOD 3 MG TAB PO SCH (17:00)
[2016-07-13] MEDS: HYDROmorphone 2 MG TAB PO SCH (18:51)
[2016-07-13] MEDS: **NOTE PATIENT COMMENT** MISC XX SCH (21:00)
[2016-07-13] MEDS: LACTIC ACID 12% LOTION 225 GM BTL TOP SCH (21:00)
[2016-07-13] MEDS: MAGNESIUM OXIDE 400 MG TAB (MAG-OX) PO SCH (21:27)
[2016-07-13] MEDS: ATORVASTATIN 20 MG TAB PO SCH (21:27)
[2016-07-13 22:00] VITALS: BP 130/58
[2016-07-13] MEDS: HYDROmorphone 2 MG TAB PO PRN (23:26)
[2016-07-14] MEDS: HYDROmorphone 2 MG TAB PO PRN ×3 (03:17→18:41)
[2016-07-14 06:00] VITALS: BP 133/63
[2016-07-14] MEDS: ANALGESIC BALM CRM 120 GM TOP PRN ×2 (06:27→08:48)
[2016-07-14 07:39] LABS: MEAN CORPUSCULAR HEMOGLOBIN 30.1 pg (27.0-33.0); MEAN CORPUSCULAR HGB CONC 32.7 g/dl (32.0-36.5); MEAN CORPUSCULAR VOLUME 92.1 fl (80.0-96.0); RED CELL DISTRIBUTION WIDTH 14.8 % (11.5-14.5)
[2016-07-14 07:40] LABS: INR 1.99
[2016-07-14 08:12] LABS: ANION GAP 10 MEQ/L (8-16); BLOOD UREA NITROGEN 17 MG/DL (7-18); CALCIUM LEVEL 9.1 MG/DL (8.8-10.2); CARBON DIOXIDE LEVEL 25 MEQ/L (21-32); CHLORIDE LEVEL 102 MEQ/L (98-107); CREATININE FOR GFR 0.56 MG/DL (0.55-1.02); GLOMERULAR FILTRATION RATE > 60.0 (>39); GLUCOSE, FASTING 184 MG/DL (83-110); MAGNESIUM LEVEL 1.8 MG/DL (1.8-2.4); SODIUM LEVEL 137 MEQ/L (136-145)
[2016-07-14] MEDS ORDERED: HYDROmorphone 2 MG TAB PO ONE (08:30)
[2016-07-14] MEDS: SPIRONOLACTONE 25 MG TAB PO SCH (08:36)
[2016-07-14] MEDS: PANTOPRAZOLE 40MG TAB (PROTONIX) PO SCH (08:37)
[2016-07-14] MEDS: METOPROLOL SUCC (TopROL XL) 50MG **XL** TAB PO SCH (08:37)
[2016-07-14] MEDS: CHLORTHALIDONE 12.5MG PER 1/2 TABLET PO SCH (08:37)
[2016-07-14] MEDS: HYDROmorphone 2 MG TAB PO SCH ×2 (08:37→18:37)
[2016-07-14] MEDS: ASPIRIN 81 MG ENTERIC TAB PO SCH (08:37)
[2016-07-14] MEDS: LACTIC ACID 12% LOTION 225 GM BTL TOP SCH ×2 (08:48→20:58)
[2016-07-14] MEDS: LIDOCAINE 5% (LIDODERM) PATCH TD SCH (08:49)
[2016-07-14] MEDS: HYDROCORTISONE 0.5% CREAM 30 GM TOP SCH ×2 (08:49→20:58)
--- NOTE | 2016-07-14 10:31 | IPN ---
DATE: 07/14/2016 Patient complains of severe pain at the left hip, requested Dilaudid at 3:30 a.m. this morning, currently has scheduled Dilaudid twice daily. No lidocaine patch. Temperature 98.1, pulse 87, respiratory rate 18, blood pressure 133/63, 95% on room air. Generally, awake, alert, oriented to person, place and time. Pupils are round and reactive. Extraocular muscles are intact. Lungs are clear to auscultation, no wheezing, rales or rhonchi. Heart: S1, S2 sinus rhythm. No murmurs, rubs or gallops. Midline sternotomy scar visible. Abdomen: Soft, nontender, nondistended. Obese abdomen. Extremities: Tender palpation left hip intertrochanteric area. No erythema. No cyanosis, clubbing or pitting edema bilateral lower extremities. LABORATORY DATA: INR 1.99, white count 7, hemoglobin 11, hematocrit 34, platelet count 233. Sodium 137, potassium 4, chloride 102, bicarbonate 25, BUN 17, creatinine 0.56, glucose of 184. CT of the extremity shows left hip replacement. No fluid collection, inflammatory reaction or acute bony abnormality. ASSESSMENT AND PLAN: 75-year-old female with history of aortic valve dysfunction repaired with pig valve, spinal stenosis, hypertension, hiatal hernia, diet controlled diabetes, bilateral hip replacement, cholecystectomy, bilateral carpal tunnel release, multiple joint arthritis of the knees, hands, feet and hips, coronary artery bypass graft (CABG) presents with heparin induced thrombocytopenia presents with left hip pain. IMPRESSION: 1. Left hip pain. CT extremity shows status post left hip replacement with no bony abnormality or fluid collection. Lumbar spine x-ray shows spondylolisthesis status post bilateral hip arthroplasty, degenerative disc disease. Patient is undergoing trial of Dilaudid and physical therapy, Lidocaine patch. No relief with Percocet. 2. Hypertension on metoprolol, chlorthalidone, spironolactone. 3. History of aortic valve replacement on chronic anticoagulation. Resume home of Coumadin and aspirin. 4. History of coronary artery bypass graft (CABG). Resume home dose of aspirin , Lipitor, chlorthalidone, spironolactone, metoprolol and warfarin. DISPOSITION: Awaiting physical therapy (PT) clearance. [id number]
[2016-07-14 14:00] VITALS: BP 140/76
[2016-07-14] MEDS: WARFARIN SOD 3 MG TAB PO SCH (17:48)
[2016-07-14] MEDS: MAGNESIUM OXIDE 400 MG TAB (MAG-OX) PO SCH (20:58)
[2016-07-14] MEDS: ATORVASTATIN 20 MG TAB PO SCH (20:58)
[2016-07-14] MEDS: **NOTE PATIENT COMMENT** MISC XX SCH (20:59)
[2016-07-14 22:00] VITALS: BP 143/73
[2016-07-15 02:00] VITALS: BP 138/68
[2016-07-15 04:00] VITALS: BP 138/68
[2016-07-15 05:55] LABS: MEAN CORPUSCULAR HEMOGLOBIN 30.7 pg (27.0-33.0); MEAN CORPUSCULAR VOLUME 93.1 fl (80.0-96.0); RED CELL DISTRIBUTION WIDTH 14.9 % (11.5-14.5); WHITE BLOOD COUNT 8.9 K/mm3 (4.0-10.0)
[2016-07-15 06:00] VITALS: BP 144/80
[2016-07-15 06:02] LABS: INR 1.89
[2016-07-15 06:06] LABS: ANION GAP 11 MEQ/L (8-16); BLOOD UREA NITROGEN 14 MG/DL (7-18); CALCIUM LEVEL 9.8 MG/DL (8.8-10.2); CARBON DIOXIDE LEVEL 25 MEQ/L (21-32); CHLORIDE LEVEL 98 MEQ/L (98-107); CREATININE FOR GFR 0.53 MG/DL (0.55-1.02); GLOMERULAR FILTRATION RATE > 60.0 (>39); GLUCOSE, FASTING 171 MG/DL (83-110); MAGNESIUM LEVEL 1.8 MG/DL (1.8-2.4); SODIUM LEVEL 134 MEQ/L (136-145)
[2016-07-15] MEDS ORDERED: HYDROmorphone 2 MG TAB PO ONE (06:45)
[2016-07-15] MEDS ORDERED: KETOROLAC 30 MG/ML VIAL (J1885) IV ONE (07:00)
--- NOTE | 2016-07-15 08:47 | IPN ---
DATE: 07/13/2016 CHIEF COMPLAINT: 1. Low back pain. 2. Generalized joint pain. REFERRING PROVIDER: Dr. Wisdom HISTORY OF PRESENT ILLNESS: Laureen is a 75-year-old female I initially saw a few days ago, per request of Dr. Wisdom for persistent disabling mainly low back left hip pain. I was asked to see her again today for uncontrolled pain. I spoke with the primary care nurse, Mary, regarding the patient's condition today after taking Dilaudid 1 mg tablet versus 2 mg tablet. The patient had first and only dose of Dilaudid 2 mg tablet this afternoon at 03:00 p.m. One hour later the patient was able to get up with minimal assist to the bathroom without complaints of disabling pain. My suggestion at this point would be to trial Dilaudid 2 mg tablets at 08:00 a.m. to see if she will better tolerate physical therapy. Could consider using Dilaudid 2 mg up to 3 tablets per day but if 2 mg daily works as it has in the past for this patient of course that would be my recommendation. I did speak with Dr. Infante, environmental auditor for Dr. Wisdom, and relayed my recommendations.
[2016-07-15] MEDS: ACETAMINOPHEN 500 MG TAB PO SCH ×2 (09:00→20:36)
[2016-07-15 10:00] VITALS: BP 136/65
--- NOTE | 2016-07-15 10:04 | IPN ---
DATE: 07/15/2016 Patient seen and examined at the bedside. Chart has been reviewed. The patient was seen and examined, and she is very tearful at the bedside and states that the pain is just always there. "I can't go home like this." She complains of pain in the right hip also, ascribing this to how she slept last night. Describes the pain as sharp on the left side and of the right hip. No significant edema or erythema at the site. Temperature 98.8,pulse 102, respiratory rate 20, blood pressure 144/80, 95% on room air. Generally, the patient is awake, alert, oriented times three, slightly tearful at the bedside, no respiratory distress. No cyanosis. No icterus. No jaundice. No jugular venous distention. Lungs are clear to auscultation. No wheezing, rales or rhonchi. Heart: S1, S2, sinus rhythm. Abdomen is soft, nontender, nondistended. Positive bowel sounds. Lower extremities: Left-sided hip pain at the trochanteric area. No erythema. No significant edema. No pitting edema bilateral lower extremities. LABORATORY DATA: White count 8.9, hemoglobin 11, hematocrit 36, platelet count 253. Sodium 134, potassium 4, chloride 98, bicarbonate 25, BUN 14, creatinine 0.53, glucose of 171. CT of the extremity: Left hip replacement. No abnormal fluid collection, inflammatory reaction or acute bony abnormality. Hip and pelvic x-ray: Status post bilateral hip replacement. No acute bony abnormality. Lumbar spine x-ray: Degenerative disc disease. Old compression fracture at T12 with minimal height loss, disc degeneration, narrowing of L1-L2, L5-S1 facet, grade 1 spondylolisthesis of L4 on L5 and 4 mm of grade 1 spondylolisthesis of L5 on S1. Status post bilateral hip arthroplasties. ASSESSMENT AND PLAN: This is a 75-year-old female with a history of aortic valve dysfunction, repaired with a pig valve, spinal stenosis, hypertension, hiatal hernia, diet-controlled diabetes, bilateral hip replacement, cholecystectomy, bilateral carpal tunnel release, multiple joint arthritis of the knees, hands, feet and hips, coronary artery bypass graft (CABG), presents with left hip pain. IMPRESSION: Left hip pain. CT extremity shows status post left hip replacement with no bony abnormality or fluid collection. Lumbar spine x-ray shows spondylolisthesis, status post bilateral hip arthroplasty, degenerative disc disease. The patient is undergoing a trial of Dilaudid and physical therapy. She has refused Lidocaine patch, stated that she has had a tramadol reaction with visual changes. No relief with Percocet. She is very tearful at the bedside with very minimal progression with physical therapy. Orthopedic surgery, Dr. Raphael, will be consulted today. Pain management has recommended a trial of Dilaudid for now, and they are unavailable this weekend. Bowel regimen and deep vein thrombosis (DVT) prophylaxis with chronic warfarin. Hypertension. On metoprolol, chlorthalidone, spironolactone. History of aortic valve replacement. Resume aspirin and Coumadin. Per the patient, this was a bioprosthetic valve with a pig valve in 2017. History of coronary artery disease, myocardial infarction ([place]), although the patient denies this. History of coronary artery bypass graft (CABG). Continue on aspirin, metoprolol, spironolactone. On chronic Coumadin and Lipitor. Continue chlorthalidone. DISPOSITION: The patient has had minimal progress with physical therapy, stating that the pain is uncontrolled. She has been tried on multiple medications, tramadol, Percocet, Dilaudid, IV morphine. She has refused lidocaine patches, stating that it irritates her. Defer to physical therapy for disposition. Consult orthopedic surgery and re-consult pain management on Sunday.
[2016-07-15] MEDS: MIRALAX *UNIT DOSE* 17GM PACKET PO SCH (11:06)
[2016-07-15] MEDS: SENOKOT S TAB PO SCH (11:08)
[2016-07-15] MEDS: PANTOPRAZOLE 40MG TAB (PROTONIX) PO SCH (11:09)
[2016-07-15] MEDS: METOPROLOL SUCC (TopROL XL) 50MG **XL** TAB PO SCH (11:10)
[2016-07-15] MEDS: ASPIRIN 81 MG ENTERIC TAB PO SCH (11:10)
[2016-07-15] MEDS: SPIRONOLACTONE 25 MG TAB PO SCH (11:11)
[2016-07-15] MEDS: LACTIC ACID 12% LOTION 225 GM BTL TOP SCH ×2 (11:23→20:18)
[2016-07-15] MEDS: HYDROCORTISONE 0.5% CREAM 30 GM TOP SCH ×2 (11:24→20:17)
[2016-07-15] MEDS ORDERED: HYDROmorphone 2 MG TAB PO SCH (12:00)
[2016-07-15 14:00] VITALS: BP 155/94
--- NOTE | 2016-07-15 16:04 | CR ---
DATE OF CONSULTATION: 07/15/2016 SUBJECTIVE: I was consulted by Dr. Wisdom to evaluate this patient for left hip pain. On discussion with the patient, really her pain is not isolated to her hip, but involves her bilateral shoulders, bilateral hips, knees and ankles. She has a very long history of chronic pain and arthritis, and took Dilaudid daily for many years subsequent to her bilateral total hip replacements which were done in 2003 and 2007. The patient is stating that she had a relatively acute onset of pain into her back and bilateral hips and knees, and was unable to ambulate and, as a result, was brought in by her son and admitted to the hospital for that reason. She denies any injury to the hip. She feels she may have pulled a muscle though she is unsure. OBJECTIVE: Awake and alert and oriented female in no acute distress. She is resting comfortably in bed when I enter the room, easily arousable. Focused examination of the left lower extremity: She has a well-healed surgical incision consistent with total hip replacement, with no erythema, induration, warmth or swelling. There is no tenderness to palpation. Overall it is a very normal postoperative appearance. Distally she has 2+ dorsalis pedis and posterior tibialis pulse with sensation intact to light touch throughout the foot. Tibialis anterior, extensor hallucis longus, and flexor hallucis longus function is intact. Grossly normal left lower extremity. X-rays of the AP pelvis and the left hip show fairly normal-appearing bilateral total hip replacements as confirmed as well with CT scan of the left hip which was also essentially negative. I do agree with the radiologist report. ASSESSMENT: Chronic pain, osteoarthritis affecting multiple joints. PLAN: I did review her chart. Her white blood cell count is 8.9. Erythrocyte sedimentation rate (ESR) and C-reactive protein (CRP) are elevated although these are nonspecific findings. On my clinical examination and based on her history, I do not at this time suspect any kind of deep prosthetic joint infection. Her symptoms really do not localize on questioning to her left hip. Her concern is really general diffuse pain affecting her back, bilateral shoulders, bilateral hips ankles and knees. Of note, she is doing better today and was able to ambulate with physical therapy and feels she is making some progress. My plan and recommendation at this time would be that she continue with physical therapy to evaluate and treat her, get her mobilized back to her baseline and followup in the outpatient orthopedic clinic to address the polyarthritis that she has described and that she has been undergoing treatment for for many years. I discussed this with the patient. She understands and is in agreement with this assessment and plan. FAUSTINO
[2016-07-15] MEDS: WARFARIN SOD 3 MG TAB PO SCH (17:31)
[2016-07-15] MEDS: HYDROmorphone 2 MG TAB PO SCH ×2 (17:31→23:22)
[2016-07-15] MEDS: SENOKOT S TAB PO PRN (17:39)
[2016-07-15] MEDS: MAGNESIUM OXIDE 400 MG TAB (MAG-OX) PO SCH (20:35)
[2016-07-15] MEDS: ATORVASTATIN 20 MG TAB PO SCH (20:35)
[2016-07-15] MEDS: **NOTE PATIENT COMMENT** MISC XX SCH (20:37)
[2016-07-16] MEDS: HYDROmorphone 2 MG TAB PO SCH ×4 (05:48→23:26)
[2016-07-16 06:00] VITALS: BP 140/82
[2016-07-16] MEDS: SENOKOT S TAB PO SCH (08:08)
[2016-07-16] MEDS: ACETAMINOPHEN 500 MG TAB PO SCH ×2 (08:09→21:09)
[2016-07-16] MEDS: PANTOPRAZOLE 40MG TAB (PROTONIX) PO SCH (08:09)
[2016-07-16] MEDS: MIRALAX *UNIT DOSE* 17GM PACKET PO SCH (08:09)
[2016-07-16] MEDS: METOPROLOL SUCC (TopROL XL) 50MG **XL** TAB PO SCH (08:09)
[2016-07-16] MEDS: SPIRONOLACTONE 25 MG TAB PO SCH (08:09)
[2016-07-16] MEDS: ASPIRIN 81 MG ENTERIC TAB PO SCH (08:09)
[2016-07-16] MEDS: HYDROCORTISONE 0.5% CREAM 30 GM TOP SCH ×2 (08:10→21:09)
[2016-07-16] MEDS: LACTIC ACID 12% LOTION 225 GM BTL TOP SCH ×2 (08:10→21:09)
[2016-07-16] MEDS: WARFARIN SOD 5 MG TAB PO SCH (17:26)
[2016-07-16] MEDS: MOM 30ML SUSPENSION UDC PO PRN (17:30)
[2016-07-16] MEDS: **NOTE PATIENT COMMENT** MISC XX SCH (20:45)
[2016-07-16] MEDS: MAGNESIUM OXIDE 400 MG TAB (MAG-OX) PO SCH (21:06)
[2016-07-16] MEDS: ATORVASTATIN 20 MG TAB PO SCH (21:06)
[2016-07-17] MEDS: HYDROmorphone 2 MG TAB PO SCH ×4 (05:21→23:08)
[2016-07-17 06:00] VITALS: BP 139/69
[2016-07-17 07:40] LABS: INR 2.79
[2016-07-17] MEDS: MIRALAX *UNIT DOSE* 17GM PACKET PO SCH (08:27)
[2016-07-17] MEDS: SENOKOT S TAB PO SCH (08:28)
[2016-07-17] MEDS: ACETAMINOPHEN 500 MG TAB PO SCH ×2 (08:28→20:21)
[2016-07-17] MEDS: LACTIC ACID 12% LOTION 225 GM BTL TOP SCH ×2 (08:28→20:23)
[2016-07-17] MEDS: HYDROCORTISONE 0.5% CREAM 30 GM TOP SCH ×2 (08:29→20:22)
[2016-07-17] MEDS: ASPIRIN 81 MG ENTERIC TAB PO SCH (08:29)
[2016-07-17] MEDS: CHLORTHALIDONE 12.5MG PER 1/2 TABLET PO SCH (08:29)
[2016-07-17] MEDS: PANTOPRAZOLE 40MG TAB (PROTONIX) PO SCH (08:29)
[2016-07-17] MEDS: METOPROLOL SUCC (TopROL XL) 50MG **XL** TAB PO SCH (08:29)
[2016-07-17] MEDS: SPIRONOLACTONE 25 MG TAB PO SCH (08:29)
[2016-07-17] MEDS: SENOKOT S TAB PO PRN (12:53)
[2016-07-17] MEDS: LIDOCAINE 5% (LIDODERM) PATCH TD SCH (16:44)
[2016-07-17] MEDS: WARFARIN SOD 5 MG TAB PO SCH (16:44)
[2016-07-17] MEDS ORDERED: BISACODYL 10 MG SUPP PR PRN (17:15)
[2016-07-17] MEDS: MAGNESIUM OXIDE 400 MG TAB (MAG-OX) PO SCH (20:20)
[2016-07-17] MEDS: ATORVASTATIN 20 MG TAB PO SCH (20:20)
[2016-07-17 22:00] VITALS: BP 115/55
[2016-07-17] MEDS: **NOTE PATIENT COMMENT** MISC XX SCH (23:08)
[2016-07-18 06:00] VITALS: BP 158/70
[2016-07-18] MEDS: HYDROmorphone 2 MG TAB PO SCH ×3 (06:10→18:24)
[2016-07-18 07:05] LABS: INR 3.39
[2016-07-18] MEDS: WARFARIN SOD 5 MG TAB PO SCH (07:58)
[2016-07-18] MEDS: LIDOCAINE 5% (LIDODERM) PATCH TD SCH (08:07)
[2016-07-18] MEDS: ACETAMINOPHEN 500 MG TAB PO SCH ×2 (08:08→20:26)
[2016-07-18] MEDS: METOPROLOL SUCC (TopROL XL) 50MG **XL** TAB PO SCH (08:08)
[2016-07-18] MEDS: ASPIRIN 81 MG ENTERIC TAB PO SCH (08:08)
[2016-07-18] MEDS: PANTOPRAZOLE 40MG TAB (PROTONIX) PO SCH (08:08)
[2016-07-18] MEDS: SENOKOT S TAB PO SCH (08:08)
[2016-07-18] MEDS: SPIRONOLACTONE 25 MG TAB PO SCH (08:08)
[2016-07-18] MEDS: HYDROCORTISONE 0.5% CREAM 30 GM TOP SCH ×2 (08:09→20:25)
[2016-07-18] MEDS: MIRALAX *UNIT DOSE* 17GM PACKET PO SCH (08:10)
[2016-07-18] MEDS: LACTIC ACID 12% LOTION 225 GM BTL TOP SCH ×2 (08:10→20:26)
[2016-07-18] MEDS ORDERED: WARFARIN SOD 3 MG TAB PO SCH (17:00)
[2016-07-18] MEDS: MAGNESIUM OXIDE 400 MG TAB (MAG-OX) PO SCH (20:25)
[2016-07-18] MEDS: **NOTE PATIENT COMMENT** MISC XX SCH (20:26)
[2016-07-18] MEDS: ATORVASTATIN 20 MG TAB PO SCH (20:26)
[2016-07-19] MEDS: HYDROmorphone 2 MG TAB PO SCH ×4 (00:07→18:25)
[2016-07-19 06:00] VITALS: BP 136/63
[2016-07-19 06:59] LABS: MEAN CORPUSCULAR HEMOGLOBIN 30.2 pg (27.0-33.0); MEAN CORPUSCULAR HGB CONC 32.2 g/dl (32.0-36.5); MEAN CORPUSCULAR VOLUME 93.8 fl (80.0-96.0); RED CELL DISTRIBUTION WIDTH 14.8 % (11.5-14.5); WHITE BLOOD COUNT 6.9 K/mm3 (4.0-10.0)
[2016-07-19 07:03] LABS: INR 3.68
[2016-07-19 07:14] LABS: ANION GAP 9 MEQ/L (8-16); BLOOD UREA NITROGEN 17 MG/DL (7-18); CALCIUM LEVEL 9.2 MG/DL (8.8-10.2); CARBON DIOXIDE LEVEL 26 MEQ/L (21-32); CHLORIDE LEVEL 103 MEQ/L (98-107); CREATININE FOR GFR 0.52 MG/DL (0.55-1.02); GLOMERULAR FILTRATION RATE > 60.0 (>39); GLUCOSE, FASTING 142 MG/DL (83-110); MAGNESIUM LEVEL 1.7 MG/DL (1.8-2.4); POTASSIUM SERUM 3.7 MEQ/L (3.5-5.1); SODIUM LEVEL 138 MEQ/L (136-145)
[2016-07-19] MEDS: ACETAMINOPHEN 500 MG TAB PO SCH ×2 (09:25→20:49)
[2016-07-19] MEDS: ASPIRIN 81 MG ENTERIC TAB PO SCH (09:25)
[2016-07-19] MEDS: SENOKOT S TAB PO SCH (09:26)
[2016-07-19] MEDS: METOPROLOL SUCC (TopROL XL) 50MG **XL** TAB PO SCH (09:26)
[2016-07-19] MEDS: CHLORTHALIDONE 12.5MG PER 1/2 TABLET PO SCH (09:27)
[2016-07-19] MEDS: PANTOPRAZOLE 40MG TAB (PROTONIX) PO SCH (09:27)
[2016-07-19] MEDS: MIRALAX *UNIT DOSE* 17GM PACKET PO SCH (09:27)
[2016-07-19] MEDS: SPIRONOLACTONE 25 MG TAB PO SCH (09:27)
[2016-07-19] MEDS: LIDOCAINE 5% (LIDODERM) PATCH TD SCH (09:27)
[2016-07-19] MEDS: LACTIC ACID 12% LOTION 225 GM BTL TOP SCH ×2 (09:28→20:49)
[2016-07-19] MEDS: HYDROCORTISONE 0.5% CREAM 30 GM TOP SCH ×2 (09:28→20:49)
[2016-07-19] MEDS ORDERED: POTASSIUM CHLORIDE 10 MEQ SR TABLET PO ONE (12:45)
[2016-07-19] MEDS: MAGNESIUM OXIDE 400 MG TAB (MAG-OX) PO SCH ×2 (14:37→20:49)
[2016-07-19] MEDS: ATORVASTATIN 20 MG TAB PO SCH (20:47)
[2016-07-19] MEDS: **NOTE PATIENT COMMENT** MISC XX SCH (20:49)
[2016-07-20] MEDS: HYDROmorphone 2 MG TAB PO SCH ×5 (00:08→23:28)
[2016-07-20 04:00] VITALS: BP 114/56
[2016-07-20 07:05] LABS: INR 2.62
[2016-07-20] MEDS: MIRALAX *UNIT DOSE* 17GM PACKET PO SCH (09:00)
[2016-07-20] MEDS: ASPIRIN 81 MG ENTERIC TAB PO SCH (09:24)
[2016-07-20] MEDS: METOPROLOL SUCC (TopROL XL) 50MG **XL** TAB PO SCH (09:27)
[2016-07-20] MEDS: ACETAMINOPHEN 500 MG TAB PO SCH ×2 (09:27→21:42)
[2016-07-20] MEDS: SENOKOT S TAB PO SCH (09:28)
[2016-07-20] MEDS: PANTOPRAZOLE 40MG TAB (PROTONIX) PO SCH (09:28)
[2016-07-20] MEDS: SPIRONOLACTONE 25 MG TAB PO SCH (09:28)
[2016-07-20] MEDS: MAGNESIUM OXIDE 400 MG TAB (MAG-OX) PO SCH ×2 (09:28→21:41)
[2016-07-20] MEDS: LACTIC ACID 12% LOTION 225 GM BTL TOP SCH ×2 (09:30→21:41)
[2016-07-20] MEDS: HYDROCORTISONE 0.5% CREAM 30 GM TOP SCH ×2 (09:30→21:41)
[2016-07-20] MEDS: LIDOCAINE 5% (LIDODERM) PATCH TD SCH (09:32)
--- NOTE | 2016-07-20 10:32 | IPNPDOC ---
Subjective Date Seen The patient was seen on 07/20/16. Subjective Chief Complaint/HPI The patient is a 75-year-old female admitted with a reason for visit of Chronic Back Pain;Chronic L Hip Pain. General: Denies: Chills Eyes: Denies: Vision change, Conjunctivae inflammation, Eyelid inflammation, Redness Pulmonary: Denies: Dyspnea, Cough Cardiovascular: Denies: Chest Pain, Palpitations Gastrointestinal: Denies: Nausea, Vomiting Neurological: Reports: Weakness Objective Physical Examination General Exam: Positive: Alert, Cooperative, Mild Distress (pt states she has pain in left hip), Negative: No Acute Distress Eye Exam: Positive: Conjunctiva & lids normal, EOMI, Negative: Sclera icteric, Ptosis ENT Exam: Positive: Atraumatic, Mucous membr. moist/pink, Pharynx Normal, Tongue Midline, Nares Patent Neck Exam: Positive: Supple Chest Exam: Positive: Clear to auscultation, Normal air movement, Negative: Rales, Rhonchi, Wheezing Heart Exam: Positive: Rate Normal, Normal S1, Normal S2 (mechanical valve sound ) Abdomen Exam: Positive: Normal bowel sounds, Soft, Negative: BS Hyperactive, BS Hypoactive, Tenderness, Hepatospenomegaly Extremity Exam: Positive: Normal pulses, Negative: Clubbing, Cyanosis, Edema, Tenderness, Swelling, Other (tender to palpitation in left hip) Psych Exam: Positive: Mental status NL Assessment /Plan Problems (1) Chronic left hip pain Status: Chronic Response to Treatment: Stable Problem Text: yet again patient states left hip hurts, describes pain elsewhere in body as well, shoulders and ankles CT of left hip unremarkable no changes to be made at this time Ortho consulted-appreciate their recommendations- continue with PT and f/u outpt for polyarthritis pain controlled with Percocet medical therapy & dilaudid Pt is not an ortho. sx. candidate lidocaine patch pain mgmt consult x2-recommend continued Percocet on d/c, trial of dilaudid inpt.if need be & physical therapy-appreciate their help (2) HTN (hypertension) Status: Chronic Response to Treatment: Stable Problem Text: continue with toprol XL and chlorthalidone medical therapy stable at 133/72 (3) Aortic valve disease Status: Chronic Response to Treatment: Stable Problem Text: s/p valve repair pt 22.5 I NR 1.97 on 07-12-16 (4) CAD (coronary artery disease) Status: Chronic Response to Treatment: Stable Problem Text: c/w aspirin therapy and toprol xl 50 mg QD (5) GERD (gastroesophageal reflux disease) Status: Chronic Response to Treatment: Stable Problem Text: c/w PPI (6) DVT prophylaxis Status: Acute Response to Treatment: Stable Problem Text: SCD TEDS Plan/VTE VTE Prophylaxis Ordered?: Yes VS, I&O, 24H, Fishbone Vital Signs/I&O Vital Signs Date Time Temp Pulse Resp B/P (MAP) Pulse Ox O2 Delivery O2 Flow Rate FiO2 07/20/16 09:27 119 133/72 07/20/16 06:31 18 07/20/16 04:00 98.0 97 07/19/16 18:55 Room Air I&O- Last 24 Hours up to 6 AM 07/20/16 05:59 Intake Total 1440 ml Output Total 1325 ml Balance 115 ml Laboratory Data 24H LABS Laboratory Tests 2 07/20/16 06:25: Prothrombin Time 28.1H, Prothromb Time International Ratio 2.62 GME ATTESTATION GME ATTESTATION My preceptor for this patient encounter was physically present in the building during the encounter and was fully available. As needed, all aspects of the patient interview, examination, medical decision making process, and medical care plan development were reviewed and approved by the preceptor. Preceptor is aware and concurs with the plan as stated in the body of this note and will attest to such by his/her cosignature. ATTENDING NOTE I have both independently examined this patient as well as reviewed the note. I have discussed in detail with the resident the findings and plan of treatment as documented in the residents note. I will continue to follow the patient and offer further guidance to the patients care as necessary during this hospital stay. SAMMIE Mccall MD, DO Jul 20, 2016 10:32 AYLIN METCALF MD Jul 21, 2016 06:43
[2016-07-20] MEDS ORDERED: WARFARIN SOD 3 MG TAB PO SCH (17:00)
[2016-07-20] MEDS: **NOTE PATIENT COMMENT** MISC XX SCH (21:00)
[2016-07-20] MEDS: ATORVASTATIN 20 MG TAB PO SCH (21:41)
[2016-07-21 06:00] VITALS: BP 159/76
[2016-07-21] MEDS: HYDROmorphone 2 MG TAB PO SCH ×3 (06:50→12:01)
[2016-07-21 07:03] LABS: INR 2.25
[2016-07-21] MEDS: SENOKOT S TAB PO SCH (09:00)
[2016-07-21] MEDS: MIRALAX *UNIT DOSE* 17GM PACKET PO SCH (09:00)
[2016-07-21] MEDS: CHLORTHALIDONE 12.5MG PER 1/2 TABLET PO SCH (09:11)
[2016-07-21] MEDS: ACETAMINOPHEN 500 MG TAB PO SCH (09:11)
[2016-07-21] MEDS: LIDOCAINE 5% (LIDODERM) PATCH TD SCH (09:11)
[2016-07-21 09:12] VITALS: BP 138/67
[2016-07-21] MEDS: MAGNESIUM OXIDE 400 MG TAB (MAG-OX) PO SCH (09:12)
[2016-07-21] MEDS: METOPROLOL SUCC (TopROL XL) 50MG **XL** TAB PO SCH (09:12)
[2016-07-21] MEDS: LACTIC ACID 12% LOTION 225 GM BTL TOP SCH (09:13)
[2016-07-21] MEDS: ASPIRIN 81 MG ENTERIC TAB PO SCH (09:13)
[2016-07-21] MEDS: PANTOPRAZOLE 40MG TAB (PROTONIX) PO SCH (09:13)
[2016-07-21] MEDS: SPIRONOLACTONE 25 MG TAB PO SCH (09:13)
[2016-07-21] MEDS: HYDROCORTISONE 0.5% CREAM 30 GM TOP SCH (09:13)
[2016-07-21] MEDS ORDERED: HYDR2TAB2 PO (12:03)
[2016-07-21] MEDS ORDERED: WARFARIN SOD 4 MG TAB PO SCH (17:00)
--- NOTE | 2016-07-22 15:05 | DSES ---
DATE OF ADMISSION: 07/10/2016 DATE OF DISCHARGE: 07/21/2016 PRIMARY CARE PROVIDER: Grecia Jimenez PAIN MANAGEMENT: Felicitas Garcia ORTHOPEDIC SURGEON: Dr. Zackery Raphael FINAL DIAGNOSES: 1. Chronic left hip pain. 2. Osteoarthritis. 3. Hypertension. 4. Aortic valve disease. 5. Coronary artery disease. 6. Gastroesophageal reflux disease. 7. Deconditioning. HISTORY OF PRESENT ILLNESS: This is a 75-year-old female patient with underlying medical history of osteoarthritis, aortic valve disorder, status post replacement, multijoint osteoarthritis, spinal stenosis, hypertension, diabetes, diet controlled, hiatal hernia, who presented to the emergency room with complaints of left hip pain. At baseline, patient has diffuse pain secondary to osteoarthritis; however, since the day prior to admission patient had a nap while lying in her chair. Upon waking up and attempting to get out of her chair started having excruciating pain of left hip, described as needles going through her hip, worsening with ambulation. Nothing seems to make it better. States that for at least the last 4 years she has been on Dilaudid, and this was tapered off. She was prescribed tramadol as well, which provided no relief. Patient was started on Lidoderm patch in the past, and last use was the night before admission with minimum relief of her pain. Denies any paresthesia, paralysis, bowel or urinary incontinence. Reported that because of her pain she has been using her walker. No weakness, falls, or injuries. Case was discussed with orthopedics manager distribution. No surgery was recommended. HOSPITAL COURSE: Patient was admitted to the hospital. Pain medication was given. Pain management was consulted. Patient's pain medication was adjusted. Physical therapy was ordered. Orthopedics was also called. Images are appreciated, including CT of the lower extremities, lumbar spine x-ray, hip x-ray. Pain regimen recommendation from pain management was followed. Patient's symptoms were inconsistent with stating that she has improved, other days that symptoms have been worsening. Patient's blood pressure medication was continued. Coumadin was resumed. INR was followed. Finally patient was switched to oral pain medication. Patient was also made alternative level of care with physical therapy and pending further clinical improvement. Physical therapy (PT)/occupational therapy (OT) was ordered. As of right now, patient stated that she felt strong enough to go home with pain marginally controlled but much improved than before and felt ready to be followed as outpatient for further care. VITAL SIGNS: Temperature 98.7, pulse 77, respirations 20, blood pressure 159/76, pulse oximetry 98% on room air. LABORATORY DATA: WBC 6.9, hemoglobin and hematocrit 10.6/32.8, platelets 279. Chemistry: Sodium 138, potassium 3.8, chloride 103, bicarbonate 26, BUN 17, creatinine 0.52, magnesium 1.7. DISCHARGE MEDICATIONS: - Dilaudid 1 mg by mouth every 6 hours as needed. Maximum daily dose three doses. Ten tablets prescribed. I-STOP was pulled, reference #[id number]. - Patient's home medication of acetaminophen 650 mg every 8 hours as needed - aspirin 81 mg by mouth daily - atorvastatin 40 mg by mouth at bedtime - chlorthalidone 12.5 mg by mouth three times a week - Nexium 40 mg by mouth daily - Lidoderm patch 5% twice a day - magnesium oxide 400 mg by mouth at bedtime - metoprolol 50 mg by mouth daily - nitroglycerine 0.4 mg sublingual as needed - spironolactone 12.5 mg by mouth daily - tramadol 50 mg by mouth 6 hours - Coumadin 4 mg by mouth once a week and 2 mg by mouth daily were continued DISCHARGE INSTRUCTIONS: Patient was instructed to followup with primary care provider and pain management in the next 5-7 days. Followup INR with primary care provider. Return to the hospital if symptoms worsen. Home with services recommended.
== END 2016-07-21 13:08 | disposition home or self-care (01) | DRG 554 ==
LOC: M ED 10:09 → M ED INP 19:01 → M MSPAV 20:55
PROVIDERS: ADMIT Internal Medicine; ATTEND Hospitalist
DX: M16.12 Unilateral primary osteoarthritis, left hip (principal); I10 Essential (primary) hypertension; M48.00 Spinal stenosis, site unspecified; E11.9 Type 2 diabetes mellitus without complications; I25.10 Atherosclerotic heart disease of native coronary artery without angina pectoris; K21.9 Gastro-esophageal reflux disease without esophagitis; K44.9 Diaphragmatic hernia without obstruction or gangrene; M54.5 Low back pain; Z79.82 Long term (current) use of aspirin; Z79.01 Long term (current) use of anticoagulants; Z79.899 Other long term (current) drug therapy; Z79.891 Long term (current) use of opiate analgesic; Z95.3 Presence of xenogenic heart valve; Z96.643 Presence of artificial hip joint, bilateral; Z90.49 Acquired absence of other specified parts of digestive tract; Z95.5 Presence of coronary angioplasty implant and graft; Z88.8 Allergy status to other drugs, medicaments and biological substances; Z82.49 Family history of ischemic heart disease and other diseases of the circulatory system

== ENCOUNTER 2016-08-10 07:34 | Inpatient (IN) | payer MEDICARE, OTHER ==
[~2016-08-10] VITALS: Ht 157.5 cm; Wt 73.9 kg
[~2016-08-10 07:34] MED LIST changes: +COUM1TAB19 PO; +HYDR2TAB2 PO; +LIDO1PAD; +LIDO5DIS36 TD
[2016-08-10] MEDS ORDERED: MECL-68 PO (08:30)
[2016-08-10] MEDS ORDERED: PREG50CA PO (08:30)
[2016-08-10] MEDS ORDERED: ONDANSETRON 4MG/2ML VIAL (J2405) IV ONE (09:00)
[2016-08-10] MEDS ORDERED: SPIRONOLACTONE 25 MG TAB PO SCH (09:00)
[2016-08-10] MEDS: SPIRONOLACTONE 12.5MG PER 1/2 TABLET PO SCH (09:00)
[2016-08-10] MEDS: LIDOCAINE 5% (LIDODERM) PATCH TD SCH (09:00)
[2016-08-10] MEDS: MORPHINE 4 MG/ML 1ML SYRINGE IV PRN ×2 (09:33→10:36)
[2016-08-10 09:43] LABS: BASO % 0.2 % (0.0-1.0); EOS % 0.1 % (0.0-3.0); LARGE UNSTAINED CELL # 0.4 K/mm3 (0.0-0.4); LARGE UNSTAINED CELL % 3.7 % (0.0-4.0); LYMPH # 1.7 K/mm3 (1.5-4.5); LYMPH % 18.3 % (24.0-44.0); MEAN CORPUSCULAR HEMOGLOBIN 29.6 pg (27.0-33.0); MEAN CORPUSCULAR HGB CONC 32.4 g/dl (32.0-36.5); MEAN CORPUSCULAR VOLUME 91.3 fl (80.0-96.0); MONO # 0.5 K/mm3 (0.0-0.8); MONO % 4.9 % (0.0-5.0); NEUTROPHILS # 6.9 K/mm3 (1.8-7.7); NEUTROPHILS % 72.9 % (36.0-66.0); PLATELET COUNT, AUTOMATED 283 k/mm3 (150-450); RED CELL DISTRIBUTION WIDTH 15.1 % (11.5-14.5); WHITE BLOOD COUNT 9.5 K/mm3 (4.0-10.0)
--- NOTE | 2016-08-10 09:48 | REP ---
Clinical: Fever. Comparison: 05/12/2016. Findings: Mediastinum and cardiac silhouette are stable. Cardiomegaly is again appreciated. Ill-defined left lower lobe fibroatelectatic changes are similar to prior examination. No new acute consolidation, effusion, or pneumothorax. Skeletal structures demonstrate age-related degenerative changes primarily involving the thoracic spine and shoulders. Impression: Chronic-appearing stable changes. No obvious acute cardiopulmonary process. Signed by Hi Padron MD 08/10/2016 09:39 A
[2016-08-10 10:03] LABS: INR 4.3
[2016-08-10 10:14] LABS: ALBUMIN 2.5 GM/DL (3.2-5.2); ALBUMIN/GLOBULIN RATIO 0.53 (1.00-1.93); ALKALINE PHOSPHATASE 82 U/L (45-117); ALT/SGPT 24 U/L (12-78); ANION GAP 12 MEQ/L (8-16); AST/SGOT 22 U/L (15-37); BLOOD UREA NITROGEN 19 MG/DL (7-18); CALCIUM LEVEL 9.1 MG/DL (8.8-10.2); CARBON DIOXIDE LEVEL 25 MEQ/L (21-32); CHLORIDE LEVEL 98 MEQ/L (98-107); CREATININE FOR GFR 0.51 MG/DL (0.55-1.02); GLOMERULAR FILTRATION RATE > 60.0 (>39); GLUCOSE, FASTING 134 MG/DL (83-110); POTASSIUM SERUM 3.7 MEQ/L (3.5-5.1); SODIUM LEVEL 135 MEQ/L (136-145); TOTAL PROTEIN 7.2 GM/DL (6.4-8.2)
[2016-08-10] MEDS ORDERED: MORPHINE 2 MG/ML 1ML SYRINGE IV ONE (12:00)
[2016-08-10] MEDS ORDERED: KETOROLAC 30 MG/ML VIAL (J1885) IV ONE (14:00)
--- NOTE | 2016-08-10 14:36 | HPEPDOC ---
Medical History and Physical Date of Admission 08/10/16 History and Physical ATTENDING: Dr. Patterson PCP: Grecia Jimenez TELETYPE ADJUSTER CC: back pain HPI: 76yoF with a past medical history significant for chronic pain. chronic LBP most recently discharged [facility] 07/22/16 following admission for left hip pain. Pt states she missed her [place] dose of Tramadol and woke up at 3 AM in severe pain , could not sit up related to severe pain. EMS was summoned. She provides limited hx at this time stating "Its a long story, how many times do I have to go through this?". States she was seen by her PCP after last admission and has appt with [facility] pain mgmt 08/14/16. States "no one understands arthritis". She does report pain in legs diffusely. weakness, ambulates with wlaker at home. No recent fall. No incontinence. No paresthesia. Denies any fevers, chills, weakness, fatigue, HAYS, CP, SOB, cough, palpitations, abdominal pain, N/V/D or changes in bowel or bladder habits. Upon presentation to the hospital the patient was found to have Intractable LBP , thus the hospitalist team was consulted. PMHx: chronic pain/Chronic LBP generalized OA\\Spinal stenosis AV repair, porcine/ CABG x 2 2016 H/O [place] HTN Hiatal hernia DM2- diet controlled. H/O DVT on Coumadin PSHX: B/L MATTHEW Cholecystectomy B/L CTR AVR- porcine CABG x 2 SOCHX: Resides in: [place], lives alone. Uses walker. Tobacco use:denies ETOH: denies Illicit Drugs: Denies Advanced directives: denies FAMHX: Mother: , heart disease Father: heart disease. Siblings: Alive, brother with mechanical Valve replacement. Children: Alive, well Unexpected deaths due to medical reasons: None. ROS: As noted in HPI, otherwise 11pt ROS of systems reviewed and unremarkable. PE: GEN: 76yoF, appears stated age. Well-nourished, well developed. No acute distress. Alert and oriented x 3. Pleasant, interactive. HEENT: Normocephalic, atraumatic. No nystagmus appreciated. Sclera are nonicteric. Conjunctiva without injection. Nose midline. Nasal turbinates without bogginess. No facial asymmetry. Moist mucous membranes. Dentition poor. Pharynx pink and moist. Neck supple, trachea midline. No lymphadenopathy or thyromegaly appreciated. CHEST: Regular rate and rhythm, +S1, +S2 LUNGS: Clear to auscultation anteriorly. Pt is unable to move on stretcher at this time related to LBP. No wheezes, rales, or rhonchi. Breathing appears symmetric and easy. Patient is speaking in full sentences. No accessory muscle use. ABD: Round, soft, non-tender, non-distended. +Bowel sounds throughout. No rebound or guarding. No costovertebral angle tenderness. EXT: Pulses 2+ bilaterally dorsalis pedis and radial. No lower extremity edema appreciated. SKIN: [place], dry, warm. Capillary refill <2sec. No rashes. NEURO: Alert and oriented x 3. Cranial nerves III-XII are intact. She is moving UEs and LEs but c/o pain with movement of LEs. No able to test strength but sensation to light touch intact. CXR: Chronic-appearing stable changes. No obvious acute cardiopulmonary process CT A/P 1. Plate-like atelectasis left lower lobe. 2. Status post aortic valve replacement and cholecystectomy. 3. Small bilateral renal cysts. 4. Tiny 2 mm intrarenal calculus right kidney without hydronephrosis. 5. Severe central canal stenosis degenerative spondylosis L4-5. 6. Bilateral hip replacements. EKG: SR, LVH, Prob old IWMI. BLOOD CULTURES: x 2 pending UC pending. A&P: 76yoF with a past medical history significant for chronic pain. chronic LBP most recently discharged [facility] 07/22/16 following admission for left hip pain. Pt states she missed her [place] dose of Tramadol and woke up at 3 AM in severe pain , could not sit up related to severe pain. She provides limited hx at this time stating "Its a long story, how many times do I have to go through this?". States she was seen by her PCP after last admission and has appt with [facility] pain mgmt 08/14/16. States "no one understands arthritis". She does report pain in legs diffusely. weakness, ambulates with wlaker at home. No recent fall. No incontinence. No paresthesia. The patient will be admitted to M/S Dr. Patterson's service. Pt is discussed with Dr Grimes. Intractable LBP. Ketorolac prn, Zanaflex prn, lidoderm patch daily. CT LS Spine pending. PT/OT/PFS. Lyrica cont'd at outpt dosing. Chronic LBP/Chronic pain/ Spinal stenosis. Pain mgmt appt scheduled 08/14/16. Continue Lyrica. AVR, porcine. ASA. HTN. Toprol XL, chlorthalidone, spironolactone cont'd at outpt doses. DM2. diet controlled as outpt. CC. FSBS BID. CAD. Statin/ASA/Toprol XL. HLD. Statin. H/O DVT/DVT prophylaxis. INR 4.30. Coumadin on HOLD. PT/INR in AM. The patient is a Full code. Vital Signs Vital Signs Date Time Temp Pulse Resp B/P (MAP) Pulse Ox O2 Delivery O2 Flow Rate FiO2 08/10/16 14:15 99.8 08/10/16 12:07 16 08/10/16 11:04 88 74 08/10/16 07:55 Room Air Laboratory Data Labs 24H Laboratory Tests 2 08/10/16 09:23: White Blood Count 9.5, Red Blood Count 3.35L, Hemoglobin 9.9L, Hematocrit 30.5L , Mean Corpuscular Volume 91.3, Mean Corpuscular Hemoglobin 29.6, Mean Corpuscular Hemoglobin Concent 32.4, Red Cell Distribution Width 15.1H, Platelet Count 283, Neutrophils (%) (Auto) 72.9H, Lymphocytes (%) (Auto) 18.3L, Monocytes (%) (Auto) 4.9, Eosinophils (%) (Auto) 0.1, Basophils (%) (Auto) 0.2, Neutrophils # (Auto) 6.9, Lymphocytes # (Auto) 1.7, Monocytes # (Auto) 0.5, Eosinophils # (Auto) 0.0, Basophils # (Auto) 0.0, Large Unclassified Cells % 3.7 , Large Unclassified Cells # 0.4, Prothrombin Time 41.2H, Prothromb Time International Ratio 4.30, Activated Partial Thromboplast Time 73.9H, Anion Gap 12, Glomerular Filtration Rate > 60.0, Lactic Acid Level 1.3, Blood Urea Nitrogen 19H, Creatinine 0.51L, Sodium Level 135L, Potassium Level 3.7, Chloride Level 98, Carbon Dioxide Level 25, Calcium Level 9.1, Aspartate Amino Transf (AST/SGOT) 22, Alanine Aminotransferase (ALT/SGPT) 24, Alkaline Phosphatase 82, Total Bilirubin 1.0, Total Protein 7.2, Albumin 2.5L, Albumin/ Globulin Ratio 0.53L 08/10/16 10:31: Urine Appearance CLEAR, Urine Color YELLOW, Urine pH 7.0, Urine Specific [place] 1.018, Urine Protein NEGATIVE, Urine Glucose (UA) NEGATIVE, Urine Ketones 1+H, Urine Urobilinogen 4.0H, Urine Bilirubin NEGATIVE, Urine Leukocyte Esterase NEGATIVE, Urine Blood NEGATIVE, Urine Nitrite NEGATIVE, Urine WBC (Auto ) 1, Urine RBC (Auto) 3, Urine Hyaline Casts (Auto) 0, Urine Bacteria (Auto) NEGATIVE, Urine Squamous Epithelial Cells 0, Urine Mucus (Auto) SMALL, Urine Sperm (Auto) 08/10/16 12:21: Total Creatine Kinase 183, Creatine Kinase MB 2.5, Creatine Kinase MB Relative Index 1.36, Troponin I < 0.02 CBC/BMP Laboratory Tests 08/10/16 09:23 Red Blood Count 3.35 L, Mean Corpuscular Volume 91.3, Mean Corpuscular Hemoglobin 29.6, Mean Corpuscular Hemoglobin Concent 32.4, Red Cell Distribution Width 15.1 H, Neutrophils (%) (Auto) 72.9 H, Lymphocytes (%) (Auto ) 18.3 L, Monocytes (%) (Auto) 4.9, Eosinophils (%) (Auto) 0.1, Basophils (%) ( Auto) 0.2, Neutrophils # (Auto) 6.9, Lymphocytes # (Auto) 1.7, Monocytes # (Auto ) 0.5, Eosinophils # (Auto) 0.0, Basophils # (Auto) 0.0, Calcium Level 9.1, Aspartate Amino Transf (AST/SGOT) 22, Alanine Aminotransferase (ALT/SGPT) 24, Alkaline Phosphatase 82, Total Bilirubin 1.0, Total Protein 7.2, Albumin 2.5 L Microbiology Microbiology 08/10/16 Blood Culture, Received Pending 08/10/16 Blood Culture, Received Pending 08/10/16 Urine Culture, Received Pending Home Medications Scheduled Acetaminophen (Tylenol 8 Hour Arthritis) 650 Mg Tab, 650 MG PO TID Aspirin (Aspirin EC) 81 Mg Tabec, 81 MG PO DAILY Atorvastatin Calcium (Atorvastatin Calcium) 40 Mg Tab, 40 MG PO QHS Chlorthalidone (Chlorthalidone) 12.5 Mg Halftab, 12.5 MG PO 3XW SUNDAY, SUNDAY, SUNDAY Esomeprazole Magnesium Trihydr (Nexium) 40 Mg Cap, 40 MG PO DAILY PATIENT HAS BEEN OUT FOR A FEW DAYS AND HAS BEEN TAKING RANITIDINE Lidocaine (Lidoderm) 5 % Dis, 5 PATCH TD DAILY MAX DOSE OF 3 PATCHES... PATIENT STATES SHE HAS BEEN USING 5 TO 6 MOST DAYS AND APPLYING WHEREVER SHE FEELS NEEDED. CURRENTLY HAS ONE APPLIED TO RIGHT KNEE. Magnesium Oxide (Magnesium Oxide) 400 Mg Tab, 400 MG PO QHS Metoprolol Succinate (Metoprolol Succinate ER) 50 Mg Tab, 50 MG PO DAILY Pregabalin (Lyrica) 50 Mg Cap, 100 MG PO TID PATIENT STATES SHE STARTED TAKING 100MG TID OF 08/09/16 NOON. RX STATES 50MG TID Spironolactone (Spironolactone) 25 Mg Tab, 12.5 MG PO DAILY Warfarin Sod (Coumadin) 4 Mg Tab, 4 MG PO 1XWK QPM: MONDAYS Warfarin Sod (Coumadin) 3 Mg Tab, 3 MG PO 6XWK QPM: SUN, , SUN, , SUN, SAT Scheduled PRN Meclizine HCl (Meclizine HCl) 25 Mg Tab, 25 TAB PO Q6HP PRN for DIZZINESS Nitroglycerin (Nitrostat) 0.4 Mg Subl, 0.4 MG SL NITRO PRN for ANGINA Tramadol HCl (Tramadol HCl) 50 Mg Tab, 50 MG PO 5XD PRN for PAIN Allergies Coded Allergies: Heparin (Unverified Allergy, Unknown, Anaphylaxis, 04/14/16) Michelle Jovel August 10, 2016 14:36
--- NOTE | 2016-08-10 14:46 | REP ---
CT ABDOMEN PELVIS WITHOUT IV OR ORAL CONTRAST: HISTORY: Low back pain. CT FINDINGS: Preliminary digital sticker operator radiograph demonstrates bilateral hip replacements. Bowel gas pattern is normal. There is an area of plate-like atelectasis in the left lower lobe displaying air bronchograms. Lung bases are otherwise clear. Left hemidiaphragm is somewhat elevated. The aortic valve replacement is seen. The liver and spleen are normal in size homogeneous in texture. No adrenal lesion is seen. No pancreatic abnormality is appreciated. Vascular calcifications noted. The gallbladder is surgically absent. There is a low-density cyst in the right kidney at mid kidney level. There is a peripheral cortical cyst laterally and on the left kidney, which measures 2.1 cm in diameter. There is a intrarenal calculus in the right mid kidney 2 mm in diameter. No hydronephrosis is seen. No uterine or ovarian abnormality is seen. There is some spray artifact across the pelvis from the hip prosthetic components. Small and large intestinal bowel loops are unremarkable. Bone window settings show no bony destructive lesion. There are degenerative spondylosis changes in the lumbar spine and there is evidence of severe central canal stenosis at L4-5. IMPRESSION: 1. Plate-like atelectasis left lower lobe. 2. Status post aortic valve replacement and cholecystectomy. 3. Small bilateral renal cysts. 4. Tiny 2 mm intrarenal calculus right kidney without hydronephrosis. 5. Severe central canal stenosis due to degenerative spondylosis at L4-5. 6. Bilateral hip replacements. Signed by Elias Gaxiola MD 08/10/2016 03:02 P
[2016-08-10] MEDS ORDERED: SPIRONOLACTONE 12.5MG PER 1/2 TABLET PO SCH (15:25)
--- NOTE | 2016-08-10 16:09 | REP ---
CT LUMBAR SPINE WITHOUT CONTRAST: 08/10/2016: Clinical history: Intractable back pain. Comparison: Lumbar x-rays 07/10/2016. Technique. Noncontrast images through the spine with coronal and sagittal reconstructions. Findings: Electron Beam Machine Welder Setter image shows the bilateral total hip arthroplasties. There is diffuse disc space narrowing of T10-11 through L4-5. There is vacuum phenomenon and marked narrowing at L4-5 with grade 1 anterolisthesis L4 on 5. A few mm of grade 1 retrolisthesis of L3 on L4 and L1-2. No acute compression deformity of destructive lesion. There is facet arthropathy and L3-4 through L5-S1. I do not see spondylolysis. Heavy atherosclerotic calcifications in the aortoiliac vessels without aneurysm. Sclerosis and erosive change along the iliac margin of the left SI joint superiorly with minor sclerosis on the right. The upper most portion of the sacrum shows the foramina grossly intact. Degenerative disc changes without central canal stenosis at T10-11. Mild central canal stenosis with posterior osteophyte at T11-12. Foramina adequate. At T12-L1 I do not see significant central canal stenosis. Foramina adequate. At L1-2 there is posterior osteophytic ridging and minimal disc bulge. The foramina were adequate. No central canal stenosis. At L2-3 posterior osteophytic ridging with central canal showing adequate cross-sectional area. Mild foraminal stenosis due to combined factors. At L3-L4 posterior osteophytic ridging and hypertrophic facet changes with associated disc bulge contributing to some moderate stenosis of the central canal. There is foraminal encroachment bilaterally due to marginal osteophytes. Facet arthropathy. At L4-5 anterolisthesis grade 1 with extensive hypertrophic facet change posterior osteophytic ridging and tight central stenosis. Foramina also show encroachment bilaterally. At L5-S1, a few millimeters of anterolisthesis of L5 on S1 with broad-based disc bulge from posterior osteophytic ridging contributing to central canal stenosis and some foraminal encroachment. No spondylolysis. Impression: 1. Grade 1 anterolisthesis of L4 on L5 and minimally at L5 and S1 with retrolisthesis of L3 on 4 and L1 on 2. There are a few millimeters. 2. Diffuse degenerative disc changes from T10-11 through L5-S1 with facet arthropathy greatest in the lower 3 levels. Multiple levels with foraminal encroachment. The central canal stenosis, greatest at L4-5 due to combined factors, L5, S1 and less at L3-4. There are no acute compression deformities or destructive lesions. Signed by Waqas Bill MD 08/10/2016 05:06 P
[2016-08-10 16:45] VITALS: BP 112/57
[2016-08-10] MEDS: METOPROLOL SUCC (TopROL XL) 50MG **XL** TAB PO SCH (17:21)
[2016-08-10] MEDS: ASPIRIN 81 MG ENTERIC TAB PO SCH (17:21)
[2016-08-10] MEDS: PREGABALIN 100 MG CAP (LYRICA) PO SCH ×2 (17:22→21:36)
[2016-08-10] MEDS: PANTOPRAZOLE 40MG TAB (PROTONIX) PO SCH (17:22)
[2016-08-10] MEDS: **NOTE PATIENT COMMENT** MISC XX SCH (21:00)
[2016-08-10] MEDS: ATORVASTATIN 20 MG TAB PO SCH (21:35)
[2016-08-10] MEDS: MAGNESIUM OXIDE 400 MG TAB (MAG-OX) PO SCH (21:35)
[2016-08-10] MEDS: ACETAMINOPHEN TAB 650MG DOSE (2X325MG) PO PRN (21:36)
[2016-08-10 22:00] VITALS: BP 129/71
[2016-08-10] MEDS: KETOROLAC TROMETHAMINE 10 MG TAB PO PRN (23:15)
[2016-08-11 06:00] VITALS: BP 123/62
[2016-08-11 06:28] LABS: MEAN CORPUSCULAR HEMOGLOBIN 29.4 pg (27.0-33.0); MEAN CORPUSCULAR HGB CONC 31.4 g/dl (32.0-36.5); MEAN CORPUSCULAR VOLUME 93.7 fl (80.0-96.0); RED CELL DISTRIBUTION WIDTH 15.2 % (11.5-14.5); WHITE BLOOD COUNT 6.1 K/mm3 (4.0-10.0)
[2016-08-11 06:34] LABS: INR 4.26
[2016-08-11 06:57] LABS: ALBUMIN 2.1 GM/DL (3.2-5.2); ALBUMIN/GLOBULIN RATIO 0.47 (1.00-1.93); ALKALINE PHOSPHATASE 82 U/L (45-117); ALT/SGPT 35 U/L (12-78); ANION GAP 6 MEQ/L (8-16); AST/SGOT 30 U/L (15-37); BILIRUBIN,TOTAL 0.6 MG/DL (0.2-1.0); BLOOD UREA NITROGEN 21 MG/DL (7-18); CALCIUM LEVEL 8.8 MG/DL (8.8-10.2); CARBON DIOXIDE LEVEL 30 MEQ/L (21-32); CHLORIDE LEVEL 101 MEQ/L (98-107); CREATININE FOR GFR 0.58 MG/DL (0.55-1.02); GLOMERULAR FILTRATION RATE > 60.0 (>39); GLUCOSE, FASTING 161 MG/DL (83-110); POTASSIUM SERUM 3.8 MEQ/L (3.5-5.1); SODIUM LEVEL 137 MEQ/L (136-145); TOTAL PROTEIN 6.6 GM/DL (6.4-8.2)
[2016-08-11] MEDS ORDERED: ENOXAPARIN 40 MG/0.4 ML SYRINGE (J1650) SC SCH (09:00)
[2016-08-11] MEDS: SPIRONOLACTONE 12.5MG PER 1/2 TABLET PO SCH (09:42)
[2016-08-11] MEDS: CHLORTHALIDONE 12.5MG PER 1/2 TABLET PO SCH (09:42)
[2016-08-11] MEDS: METOPROLOL SUCC (TopROL XL) 50MG **XL** TAB PO SCH (09:43)
[2016-08-11] MEDS: ASPIRIN 81 MG ENTERIC TAB PO SCH (09:44)
[2016-08-11] MEDS: ACETAMINOPHEN TAB 650MG DOSE (2X325MG) PO PRN ×2 (09:44→16:08)
[2016-08-11] MEDS: PANTOPRAZOLE 40MG TAB (PROTONIX) PO SCH (09:45)
[2016-08-11] MEDS: PREGABALIN 100 MG CAP (LYRICA) PO SCH ×3 (09:45→21:00)
[2016-08-11] MEDS: tiZANidine 4 MG TAB PO PRN (09:45)
[2016-08-11] MEDS: LIDOCAINE 5% (LIDODERM) PATCH TD SCH ×2 (09:46→21:00)
--- NOTE | 2016-08-11 11:41 | ECGEPIP ---
Stationary ECG Study [facility] - ED Test Date: 2016-08-10 Pat Name: LAURA BRIDGES Department: Room: - Gender: F Digital Data Analyst: chase : 1940 Requested By: Anita Hensley Order Number: [id number] Reading MD: Anita Hensley Measurements Intervals [place] Rate: 78 P: 32 VA: 153 QRS: -14 QRSD: 93 T: 1 QT: 384 QTc: 438 Interpretive Statements SINUS RHYTHM MINIMAL VOLTAGE CRITERIA FOR LVH, CONSIDER NORMAL VARIANT INFERIOR MYOCARDIAL INFARCTION, PROBABLY OLD NSTTW ABNORMALITY, NEW COMPARED 05/12/16 Electronically Signed On 08-11-2016 11:40:46 EDT by Anita Hensley
[2016-08-11] MEDS: KETOROLAC TROMETHAMINE 10 MG TAB PO PRN (13:05)
--- NOTE | 2016-08-11 13:25 | IPNPDOC ---
Subjective Date Seen The patient was seen on 08/11/16. Subjective Chief Complaint/HPI The patient is a 76-year-old female admitted with a reason for visit of Chronic Back Pain. General: Denies: Chills, Night Sweats Constitutional: Denies: Chills, Fever Eyes: Denies: Pain, Vision change ENT: Denies: Head Aches, Ear Pain Skin: Denies: Rash, Lesions Pulmonary: Denies: Dyspnea, Cough Cardiovascular: Denies: Chest Pain, Palpitations Gastrointestinal: Denies: Nausea, Vomiting Genitourinary: Denies: Dysuria, Frequency Hematologic: Denies: Bruising, Bleeding Excessively Objective Physical Examination General Exam: Positive: Alert, No Acute Distress, Other (patient appears drowsy upon interviewing this morning as she had just received her pain medications. At this time, patient denies any acute complaints.) ENT Exam: Positive: Atraumatic, Mucous membr. moist/pink Neck Exam: Negative: JVD Chest Exam: Positive: Clear to auscultation, Normal air movement Heart Exam: Positive: Rate Normal, Normal S1 Abdomen Exam: Positive: Soft, Negative: Tenderness Extremity Exam: Negative: Tenderness, Swelling Assessment /Plan Plan/VTE VTE Prophylaxis Ordered?: Yes Plan Intractable back pain CT scan of the lumbar spine noted with no acute compression deformities or destructive lesions. No alarm signs of saddle anesthesia, urinary or fecal incontinence, or any numbness and tingling in the extremities Continue Lyrica, Toradol, Zanaflex, lidocaine patch as ordered Physical and occupational therapy ordered History of coronary artery disease, myocardial infarction, CABG Cont ASA, Statin, Metoprolol Hypertension Cont metoprolol, chlorthalidone, spironolactone. History of aortic valve replacement Cont aspirin INR supratherapeutic--Coumadin currently being held DVT Prophylaxis INR already supratherapeutic Disposition-we'll continue to manage the patient's pain, and have the patient work with physical therapy. Patient is scheduled to have an appointment with pain management on 08/14/16. VS, I&O, 24H, Fishbone Vital Signs/I&O Vital Signs Date Time Temp Pulse Resp B/P (MAP) Pulse Ox O2 Delivery O2 Flow Rate FiO2 08/11/16 09:43 66 138/62 08/11/16 06:00 98.3 17 96 Room Air I&O- Last 24 Hours up to 6 AM 08/11/16 06:00 Intake Total 690 ml Output Total 275 ml Balance 415 ml Laboratory Data 24H LABS Laboratory Tests 2 08/10/16 21:42: Total Creatine Kinase 129, Creatine Kinase MB 1.0, Creatine Kinase MB Relative Index 0.77, Troponin I < 0.02 08/11/16 06:10: Prothrombin Time 40.9H, Prothromb Time International Ratio 4.26, Anion Gap 6L, Glomerular Filtration Rate > 60.0, Blood Urea Nitrogen 21H, Creatinine 0.58, Sodium Level 137, Potassium Level 3.8, Chloride Level 101, Carbon Dioxide Level 30, Calcium Level 8.8, Aspartate Amino Transf (AST/SGOT) 30, Alanine Aminotransferase (ALT/SGPT) 35, Alkaline Phosphatase 82, Total Bilirubin 0.6, Total Protein 6.6, Albumin 2.1L, Magnesium Level 2.0, Albumin/Globulin Ratio 0.47L CBC/BMP Laboratory Tests 08/11/16 06:10 Red Blood Count 3.21 L, Mean Corpuscular Volume 93.7, Mean Corpuscular Hemoglobin 29.4, Mean Corpuscular Hemoglobin Concent 31.4 L, Red Cell Distribution Width 15.2 H, Calcium Level 8.8, Aspartate Amino Transf (AST/SGOT) 30, Alanine Aminotransferase (ALT/SGPT) 35, Alkaline Phosphatase 82, Total Bilirubin 0.6, Total Protein 6.6, Albumin 2.1 L Microbiology Microbiology 08/10/16 Blood Culture, Received Pending 08/10/16 Blood Culture, Unverified Pending 08/10/16 Urine Culture - Final, Complete MAYNOR HERNANDEZ MD August 11, 2016 13:25
[2016-08-11 14:00] VITALS: BP 133/61
[2016-08-11] MEDS: **NOTE PATIENT COMMENT** MISC XX SCH (21:00)
[2016-08-11] MEDS: ATORVASTATIN 20 MG TAB PO SCH (22:07)
[2016-08-11] MEDS: MAGNESIUM OXIDE 400 MG TAB (MAG-OX) PO SCH (22:08)
[2016-08-12] MEDS: KETOROLAC TROMETHAMINE 10 MG TAB PO PRN (00:44)
[2016-08-12] MEDS: ACETAMINOPHEN TAB 650MG DOSE (2X325MG) PO PRN ×3 (00:46→21:47)
[2016-08-12] MEDS: SENOKOT S TAB PO SCH ×3 (01:03→20:07)
[2016-08-12 05:39] LABS: MEAN CORPUSCULAR HEMOGLOBIN 30.3 pg (27.0-33.0); MEAN CORPUSCULAR HGB CONC 32.2 g/dl (32.0-36.5); MEAN CORPUSCULAR VOLUME 94.1 fl (80.0-96.0); RED CELL DISTRIBUTION WIDTH 15.3 % (11.5-14.5); WHITE BLOOD COUNT 6.9 K/mm3 (4.0-10.0)
[2016-08-12 05:53] LABS: INR 4.87
[2016-08-12 05:58] LABS: ALBUMIN 2.1 GM/DL (3.2-5.2); ALBUMIN/GLOBULIN RATIO 0.48 (1.00-1.93); ALKALINE PHOSPHATASE 81 U/L (45-117); ALT/SGPT 35 U/L (12-78); ANION GAP 8 MEQ/L (8-16); AST/SGOT 24 U/L (15-37); BILIRUBIN,TOTAL 0.6 MG/DL (0.2-1.0); BLOOD UREA NITROGEN 23 MG/DL (7-18); CALCIUM LEVEL 8.9 MG/DL (8.8-10.2); CARBON DIOXIDE LEVEL 28 MEQ/L (21-32); CHLORIDE LEVEL 102 MEQ/L (98-107); CREATININE FOR GFR 0.74 MG/DL (0.55-1.02); GLOMERULAR FILTRATION RATE > 60.0 (>39); GLUCOSE, FASTING 152 MG/DL (83-110); POTASSIUM SERUM 3.7 MEQ/L (3.5-5.1); SODIUM LEVEL 138 MEQ/L (136-145); TOTAL PROTEIN 6.5 GM/DL (6.4-8.2)
[2016-08-12 06:00] VITALS: BP 118/61
[2016-08-12] MEDS ORDERED: MORPHINE 2 MG/ML 1ML SYRINGE IV ONE (06:30)
[2016-08-12] MEDS ORDERED: diphenhydrAMINE 25 MG CAP PO ONE (06:30)
[2016-08-12] MEDS: LIDOCAINE 5% (LIDODERM) PATCH TD SCH ×2 (08:16→20:07)
[2016-08-12] MEDS: SPIRONOLACTONE 12.5MG PER 1/2 TABLET PO SCH (09:00)
[2016-08-12] MEDS: **NOTE PATIENT COMMENT** MISC XX SCH ×2 (09:00→21:00)
[2016-08-12] MEDS: PANTOPRAZOLE 40MG TAB (PROTONIX) PO SCH (09:17)
[2016-08-12] MEDS: tiZANidine 4 MG TAB PO PRN (09:17)
[2016-08-12] MEDS: ASPIRIN 81 MG ENTERIC TAB PO SCH (09:17)
[2016-08-12] MEDS: PREGABALIN 100 MG CAP (LYRICA) PO SCH ×3 (09:17→20:07)
[2016-08-12] MEDS: BISACODYL 5 MG TAB PO SCH (09:17)
[2016-08-12] MEDS: METOPROLOL SUCC (TopROL XL) 50MG **XL** TAB PO SCH (09:18)
--- NOTE | 2016-08-12 13:50 | IPNPDOC ---
Subjective Date Seen The patient was seen on 08/12/16. Subjective Chief Complaint/HPI The patient is a 76-year-old female admitted with a reason for visit of Chronic Back Pain. General: Denies: Chills, Night Sweats Constitutional: Denies: Chills, Fever Eyes: Denies: Pain, Vision change ENT: Denies: Head Aches, Ear Pain Skin: Denies: Rash, Lesions Pulmonary: Denies: Dyspnea, Cough Cardiovascular: Denies: Chest Pain, Palpitations Gastrointestinal: Denies: Nausea, Vomiting Genitourinary: Denies: Dysuria, Frequency Hematologic: Denies: Bruising, Bleeding Excessively Musculoskeletal: Reports: Back Pain Objective Physical Examination General Exam: Positive: Alert, No Acute Distress, Other (Patient states that she did not get any sleep due to pain in her lower back which is chronic. ) ENT Exam: Positive: Atraumatic, Mucous membr. moist/pink Neck Exam: Negative: JVD Chest Exam: Positive: Clear to auscultation, Normal air movement Heart Exam: Positive: Rate Normal, Normal S1 Abdomen Exam: Positive: Soft, Negative: Tenderness Extremity Exam: Negative: Tenderness, Swelling Assessment /Plan Plan/VTE VTE Prophylaxis Ordered?: Yes Plan Enterococcus Faecalis Bacteremia of Unclear Etiology Of note the patient did have blood cultures positive for the same pathogen on an admission in April 2016, and the source at that time was noted to be from Cellulitis of the Right Wrist, which she was treated with IV Ampicillin and then transitioned to PO Ampicillin at that time. A 2-D echocardiogram was also ordered during that admission given her history of an aortic valve replacement, however no vegetations were noted at that time. On this admission, the patient's main complaint was noted to be lower back pain. She was noted to be febrile on the day of admission, but her fevers have since subsided and her white blood cell count has been within normal limits. CT Scan of the Lumbar Spine revealed no acute compressions or deformities, and no source of abscess. At this time, my exam on the patient has no overt source of infection-however possible sources include prosthetic devices such as her aortic valve which was replaced and her bilateral hip prostheses. The hip joints are not tender or warm to the touch, and the patient does not complain of any acute pain at the sites which is more than her baseline. I will start the patient on Ampicillin 2gm q4h and have the patient seen by Infectious Diseases on Sunday for further delineation of etiology. We will consider a possible repeat of 2D ECHO. Intractable back pain CT scan of the lumbar spine noted with no acute compression deformities or destructive lesions. No alarm signs of saddle anesthesia, urinary or fecal incontinence, or any numbness and tingling in the extremities Continue Lyrica, Toradol, Zanaflex, lidocaine patch as ordered Physical and occupational therapy ordered History of coronary artery disease, myocardial infarction, CABG Cont ASA, Statin, Metoprolol Hypertension Cont metoprolol, chlorthalidone, spironolactone. History of aortic valve replacement Cont aspirin INR supratherapeutic--Coumadin currently being held DVT Prophylaxis INR already supratherapeutic Disposition-we'll continue to work up the patient's bacteremic source. Pain Mgmt consult on Sunday. PT/OT for further delineation of disposition. VS, I&O, 24H, Fishbone Vital Signs/I&O Vital Signs Date Time Temp Pulse Resp B/P (MAP) Pulse Ox O2 Delivery O2 Flow Rate FiO2 08/12/16 09:18 78 152/62 08/12/16 08:08 18 08/12/16 06:00 98.4 95 Room Air I&O- Last 24 Hours up to 6 AM 08/12/16 06:00 Intake Total 720 ml Output Total 400 ml Balance 320 ml Laboratory Data 24H LABS Laboratory Tests 2 08/12/16 05:13: Prothrombin Time 45.4H, Prothromb Time International Ratio 4.87, Anion Gap 8, Glomerular Filtration Rate > 60.0, Blood Urea Nitrogen 23H, Creatinine 0.74, Sodium Level 138, Potassium Level 3.7, Chloride Level 102, Carbon Dioxide Level 28, Calcium Level 8.9, Aspartate Amino Transf (AST/SGOT) 24, Alanine Aminotransferase (ALT/SGPT) 35, Alkaline Phosphatase 81, Total Bilirubin 0.6, Total Protein 6.5, Albumin 2.1L, Albumin/Globulin Ratio 0.48L CBC/BMP Laboratory Tests 08/12/16 05:13 Red Blood Count 3.17 L, Mean Corpuscular Volume 94.1, Mean Corpuscular Hemoglobin 30.3, Mean Corpuscular Hemoglobin Concent 32.2, Red Cell Distribution Width 15.3 H, Calcium Level 8.9, Aspartate Amino Transf (AST/SGOT) 24, Alanine Aminotransferase (ALT/SGPT) 35, Alkaline Phosphatase 81, Total Bilirubin 0.6, Total Protein 6.5, Albumin 2.1 L Microbiology Microbiology 08/11/16 Blood Culture - Preliminary, Resulted 08/11/16 Blood Culture - Preliminary, Resulted 08/10/16 Blood Culture - Final, Complete Enterococcus Faecalis 08/10/16 Blood Culture - Final, Complete Enterococcus Faecalis 08/10/16 Urine Culture - Final, Complete MAYNOR HERNANDEZ MD August 12, 2016 13:50
[2016-08-12] MEDS: AMPICILLIN SOD 2 GM in D5W MINI-BAG PLUS 100 ML IV SCH ×3 (15:07→21:20)
[2016-08-12] MEDS: MAGNESIUM OXIDE 400 MG TAB (MAG-OX) PO SCH (20:07)
[2016-08-12] MEDS: ATORVASTATIN 20 MG TAB PO SCH (20:07)
[2016-08-12] MEDS: KETOROLAC TROMETHAMINE 10 MG TAB PO SCH (20:08)
[2016-08-12 22:00] VITALS: BP 123/60
[2016-08-13] MEDS: AMPICILLIN SOD 2 GM in D5W MINI-BAG PLUS 100 ML IV SCH ×6 (02:13→22:23)
[2016-08-13] MEDS: tiZANidine 4 MG TAB PO PRN (02:54)
[2016-08-13 06:00] VITALS: BP 119/65
[2016-08-13 06:28] LABS: INR 3.85
[2016-08-13 06:29] LABS: MEAN CORPUSCULAR HEMOGLOBIN 29.7 pg (27.0-33.0); MEAN CORPUSCULAR HGB CONC 32.5 g/dl (32.0-36.5); MEAN CORPUSCULAR VOLUME 91.3 fl (80.0-96.0); RED CELL DISTRIBUTION WIDTH 15.4 % (11.5-14.5); WHITE BLOOD COUNT 6.8 K/mm3 (4.0-10.0)
[2016-08-13 06:58] LABS: ALBUMIN/GLOBULIN RATIO 0.54 (1.00-1.93); ALKALINE PHOSPHATASE 79 U/L (45-117); ALT/SGPT 31 U/L (12-78); ANION GAP 10 MEQ/L (8-16); AST/SGOT 18 U/L (15-37); BILIRUBIN,TOTAL 0.6 MG/DL (0.2-1.0); BLOOD UREA NITROGEN 16 MG/DL (7-18); CALCIUM LEVEL 8.6 MG/DL (8.8-10.2); CARBON DIOXIDE LEVEL 27 MEQ/L (21-32); CHLORIDE LEVEL 102 MEQ/L (98-107); CREATININE FOR GFR 0.57 MG/DL (0.55-1.02); GLOMERULAR FILTRATION RATE > 60.0 (>39); GLUCOSE, FASTING 145 MG/DL (83-110); POTASSIUM SERUM 3.9 MEQ/L (3.5-5.1); SODIUM LEVEL 139 MEQ/L (136-145); TOTAL PROTEIN 5.7 GM/DL (6.4-8.2)
[2016-08-13] MEDS: **NOTE PATIENT COMMENT** MISC XX SCH ×2 (09:00→21:00)
[2016-08-13] MEDS: SPIRONOLACTONE 12.5MG PER 1/2 TABLET PO SCH (09:30)
[2016-08-13] MEDS: PANTOPRAZOLE 40MG TAB (PROTONIX) PO SCH (09:30)
[2016-08-13] MEDS: KETOROLAC TROMETHAMINE 10 MG TAB PO SCH ×3 (09:30→21:24)
[2016-08-13] MEDS: PREGABALIN 100 MG CAP (LYRICA) PO SCH ×3 (09:30→21:24)
[2016-08-13] MEDS: SENOKOT S TAB PO SCH ×2 (09:33→21:24)
[2016-08-13] MEDS: ASPIRIN 81 MG ENTERIC TAB PO SCH (09:33)
[2016-08-13] MEDS: BISACODYL 5 MG TAB PO SCH (09:33)
[2016-08-13] MEDS: METOPROLOL SUCC (TopROL XL) 50MG **XL** TAB PO SCH (09:33)
[2016-08-13] MEDS: LIDOCAINE 5% (LIDODERM) PATCH TD SCH ×2 (09:34→21:25)
--- NOTE | 2016-08-13 13:46 | IPNPDOC ---
Subjective Date Seen The patient was seen on 08/13/16. Subjective Chief Complaint/HPI The patient is a 76-year-old female admitted with a reason for visit of Chronic Back Pain. General: Denies: Chills, Night Sweats Constitutional: Denies: Chills, Fever Eyes: Denies: Pain, Vision change ENT: Denies: Head Aches, Ear Pain Skin: Denies: Rash, Lesions Pulmonary: Denies: Dyspnea, Cough Cardiovascular: Denies: Chest Pain, Palpitations Gastrointestinal: Denies: Nausea, Vomiting Genitourinary: Denies: Dysuria, Frequency Hematologic: Denies: Bruising, Bleeding Excessively Objective Physical Examination General Exam: Positive: Alert, No Acute Distress, Other (Patient states that she did not get any sleep due to pain in her lower back which is chronic. ) ENT Exam: Positive: Atraumatic, Mucous membr. moist/pink Neck Exam: Negative: JVD Chest Exam: Positive: Clear to auscultation, Normal air movement Heart Exam: Positive: Rate Normal, Normal S1 Abdomen Exam: Positive: Soft, Negative: Tenderness Extremity Exam: Negative: Tenderness, Swelling Assessment /Plan Plan/VTE VTE Prophylaxis Ordered?: Yes Plan Enterococcus Faecalis Bacteremia of Unclear Etiology Two Sets of Blood Cultures positive on 08/10 & 08/11, sensitivities noted, Started on Ampicillin on 08/12 (Repeat Cultures from 08/13 pending) Of note the patient did have blood cultures positive for the same pathogen on an admission in April 2016, and the source at that time was noted to be from Cellulitis of the Right Wrist, which she was treated with IV Ampicillin and then transitioned to PO Ampicillin at that time. A 2-D echocardiogram was also ordered during that admission given her history of an aortic valve replacement, however no vegetations were noted at that time. On this admission, the patient's main complaint was noted to be lower back pain. She was noted to be febrile on the day of admission, and she once again spiked a fever last night CT Scan of the Lumbar Spine revealed no acute compressions or deformities, and no source of abscess. At this time, my exam on the patient has no overt source of infection-however possible sources include prosthetic devices such as her aortic valve which was replaced in March 2014 at [facility] and her bilateral hip prostheses. The patient did have a small IV infiltration site on the right forearm as well noted on 08/12, and this line was changed--and this may also be a possible source. The hip joints are not tender or warm to the touch, and the patient does not complain of any acute pain at the sites which is more than her baseline. Ampicillin 2gm q4h started on 08/12/16-->Repeat Blood Cultures pending (08/13) 2D ECHO ordered Will consult Infectious Diseases tomorrow Intractable back pain CT scan of the lumbar spine noted with no acute compression deformities or destructive lesions. Chronic degenerative changes noted on CT, the patient does state that she followed with a Neurosurgeon, Dr. Quezada in the [place], [place] area and was offered a Lumbar fusion in the past, but she declined. The patient states that she would be interested in a consultation here.-->Dr. Sanchez of [facility] consulted No alarm signs of saddle anesthesia, fecal incontinence, or any numbness and tingling in the extremities Continue Lyrica, Toradol, Zanaflex, lidocaine patch as ordered Physical and occupational therapy ordered Will consult Pain Mgmt in the AM as the patient was scheduled to see them as an outpatient on 08/14 History of coronary artery disease, myocardial infarction, CABG Cont ASA, Statin, Metoprolol Hypertension Cont metoprolol, chlorthalidone, spironolactone. History of aortic valve replacement Cont aspirin INR supratherapeutic--Coumadin currently being held DVT Prophylaxis INR already supratherapeutic Disposition-we'll continue to work up the patient's bacteremic source. Pain Mgmt , [facility] consult on Sunday. PT/OT for further delineation of disposition. VS, I&O, 24H, Fishbone Vital Signs/I&O Vital Signs Date Time Temp Pulse Resp B/P (MAP) Pulse Ox O2 Delivery O2 Flow Rate FiO2 08/13/16 09:33 90 145/69 08/13/16 06:00 97.8 16 94 Room Air I&O- Last 24 Hours up to 6 AM 08/13/16 06:00 Intake Total 320 ml Output Total 450 ml Balance -130 ml Laboratory Data 24H LABS Laboratory Tests 2 08/13/16 06:03: Erythrocyte Sedimentation Rate 81H, Prothrombin Time 37.8H, Prothromb Time International Ratio 3.85, Anion Gap 10, Glomerular Filtration Rate > 60.0, Blood Urea Nitrogen 16, Creatinine 0.57, Sodium Level 139, Potassium Level 3.9, Chloride Level 102, Carbon Dioxide Level 27, Calcium Level 8.6L, Aspartate Amino Transf (AST/SGOT) 18, Alanine Aminotransferase (ALT/SGPT) 31, Alkaline Phosphatase 79, Total Bilirubin 0.6, Total Protein 5.7L, Albumin 2.0L, C- Reactive Protein, Quantitative 15.00H, Albumin/Globulin Ratio 0.54L CBC/BMP Laboratory Tests 08/13/16 06:03 Red Blood Count 3.25 L, Mean Corpuscular Volume 91.3, Mean Corpuscular Hemoglobin 29.7, Mean Corpuscular Hemoglobin Concent 32.5, Red Cell Distribution Width 15.4 H, Calcium Level 8.6 L, Aspartate Amino Transf (AST/SGOT ) 18, Alanine Aminotransferase (ALT/SGPT) 31, Alkaline Phosphatase 79, Total Bilirubin 0.6, Total Protein 5.7 L, Albumin 2.0 L Microbiology Microbiology 08/13/16 Blood Culture, Received Pending 08/13/16 Blood Culture, Received Pending 08/11/16 Blood Culture - Preliminary, Resulted 08/11/16 Blood Culture - Preliminary, Resulted 08/10/16 Blood Culture - Final, Complete Enterococcus Faecalis 08/10/16 Blood Culture - Final, Complete Enterococcus Faecalis 08/10/16 Urine Culture - Final, Complete MAYNOR HERNANDEZ MD August 13, 2016 13:46
[2016-08-13 14:00] VITALS: BP 121/57
[2016-08-13] MEDS ORDERED: BISACODYL 10 MG SUPP PR PRN (14:45)
[2016-08-13] MEDS: ATORVASTATIN 20 MG TAB PO SCH (21:24)
[2016-08-13] MEDS: MAGNESIUM OXIDE 400 MG TAB (MAG-OX) PO SCH (21:24)
[2016-08-13 22:00] VITALS: BP 143/67
[2016-08-14] MEDS: tiZANidine 4 MG TAB PO PRN ×2 (01:23→23:00)
[2016-08-14] MEDS: ACETAMINOPHEN TAB 650MG DOSE (2X325MG) PO PRN (02:11)
[2016-08-14] MEDS: AMPICILLIN SOD 2 GM in D5W MINI-BAG PLUS 100 ML IV SCH ×6 (02:11→21:07)
[2016-08-14 05:59] LABS: MEAN CORPUSCULAR HEMOGLOBIN 29.8 pg (27.0-33.0); MEAN CORPUSCULAR VOLUME 93.3 fl (80.0-96.0); PLATELET COUNT, AUTOMATED 282 k/mm3 (150-450); RED CELL DISTRIBUTION WIDTH 15.1 % (11.5-14.5); WHITE BLOOD COUNT 7.9 K/mm3 (4.0-10.0)
[2016-08-14 06:00] VITALS: BP 129/63
[2016-08-14 06:09] LABS: ALBUMIN 1.9 GM/DL (3.2-5.2); ALBUMIN/GLOBULIN RATIO 0.44 (1.00-1.93); ALKALINE PHOSPHATASE 72 U/L (45-117); ALT/SGPT 31 U/L (12-78); ANION GAP 8 MEQ/L (8-16); AST/SGOT 18 U/L (15-37); BILIRUBIN,TOTAL 0.5 MG/DL (0.2-1.0); BLOOD UREA NITROGEN 14 MG/DL (7-18); CALCIUM LEVEL 8.6 MG/DL (8.8-10.2); CARBON DIOXIDE LEVEL 29 MEQ/L (21-32); CHLORIDE LEVEL 101 MEQ/L (98-107); CREATININE FOR GFR 0.58 MG/DL (0.55-1.02); GLOMERULAR FILTRATION RATE > 60.0 (>39); GLUCOSE, FASTING 155 MG/DL (83-110); POTASSIUM SERUM 3.7 MEQ/L (3.5-5.1); SODIUM LEVEL 138 MEQ/L (136-145); TOTAL PROTEIN 6.2 GM/DL (6.4-8.2)
[2016-08-14 06:10] LABS: INR 2.97
--- NOTE | 2016-08-14 06:20 | ECHO ---
DATE OF PROCEDURE: 08/13/2016 AGE: 76 GENDER: Female REFERRING PHYSICIAN: Dr. Mundo Patterson INPATIENT: [facility]30 INDICATION: Bacteremia. Bioprosthetic aortic valve. MEASUREMENTS: 2D MEASUREMENTS: RV - 3.9 cm LV- 4.4 cm Septum - 1.3 cm Posterior wall - 1.3 cm LVEF - 70% Aortic root - 3.4 cm LA - 4.3 cm LVEF - 70% DOPPLER MEASUREMENTS: AV - 2.5 m/s LVOT - 1.3 m/s LVOT diameter - 2.2 cm Mean AV systolic gradient - 15 mmHg MV-E: 100 A: 140 EA ratio 0.7 Early mitral deacceleration time 243 ms E-prime - 5 A-prime - 10 E/E prime ratio 20 PV - 1.0 m/s Pulmonary artery acceleration time 92 ms RVSP - 38 mmHg IVC - 1.7 cm COMMENTS: Normal sinus rhythm without intraventricular conduction disturbance. Technically challenging study in light of the patient's body habitus but diagnostically useful information was still obtained. Mildly dilated left atrium but normal left ventricular size. Right heart chamber sizes also appeared to be normal. LV wall thickness was mildly increased symmetrically. On real-time imaging from the parasternal and apical projections, wall motion was symmetrical and hyperkinetic. Mildly thickened mitral annulus and leaflet edges with adequate leaflet excursion and no posterior systolic buckling. Echogenic bioprosthetic aortic valve with visible cusp motion. Normal aortic root size. No apparent intracardiac mass. Minuscule posterior pericardial effusion. Color flow Doppler study taken from the parasternal and apical projection showed very mild mitral, mild to moderate tricuspid but no prosthetic aortic insufficiency. Guided continuous wave Doppler of her prosthetic valve and pulsed Doppler study of her LV outflow tract taken from the apical long axis and five chamber projection showed a slightly increased peak systolic velocity and mean gradient but dimensionless index of 0.53 - all in keeping with appropriate function of this prosthesis. There was no aortic insufficiency. Pulsed and continuous wave Doppler of her LV inflow tract taken from the apical four-chamber projection showed normal diastolic filling velocities against mitral stenosis. There was more prominent late diastolic/atrial dependent filling pattern. A degree of LV diastolic dysfunction was confirmed by a prolonged early mitral deceleration time and tissue Doppler of her mitral annulus. Her current estimated mean left atrial pressure was elevated. Pulsed and continuous wave Doppler of her pulmonary trunk showed a normal peak systolic velocity against RV outflow tract obstruction. Her pulmonary artery acceleration time was abbreviated suggestive of a slightly elevated pulmonary vascular resistance. Guided continuous wave Doppler of her tricuspid valve allowed our estimation of her right ventricular systolic pressure (at least mildly increased). Her inferior vena cava was of normal size with normal respiratory collapse against right heart failure at this time. CONCLUSIONS: Appropriate function of a bioprosthetic aortic valve. 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 Could not visualize a pedunculated mass or vegetation. However, if this is seriously suspect, a complete blood count, sedimentation rate, two sets of blood cultures by 24 hours as well as a transesophageal echocardiogram would be advised. Mild concentric left ventricle hypertrophy with hyperkinetic wall motion. Mildly dilated left atrium with Doppler evidence of impairment of LV diastolic function and an elevated mean left atrial pressure. Normal right heart chamber sizes and contraction with Doppler evidence of mild pulmonary hypertension. Normal IVC size and collapse against an elevated central venous pressure.
[2016-08-14 06:33] LABS: ERYTHROCYTE SEDIMENTATION RATE > 140 mm/hr (0-30)
[2016-08-14] MEDS: **NOTE PATIENT COMMENT** MISC XX SCH ×3 (09:00→23:28)
[2016-08-14] MEDS: LIDOCAINE 5% (LIDODERM) PATCH TD SCH ×2 (09:14→21:06)
[2016-08-14] MEDS: PREGABALIN 100 MG CAP (LYRICA) PO SCH ×3 (09:14→21:04)
[2016-08-14] MEDS: CHLORTHALIDONE 12.5MG PER 1/2 TABLET PO SCH (09:14)
[2016-08-14] MEDS: ASPIRIN 81 MG ENTERIC TAB PO SCH (09:14)
[2016-08-14] MEDS: BISACODYL 5 MG TAB PO SCH (09:14)
[2016-08-14] MEDS: KETOROLAC TROMETHAMINE 10 MG TAB PO SCH ×3 (09:15→21:06)
[2016-08-14] MEDS: SPIRONOLACTONE 12.5MG PER 1/2 TABLET PO SCH (09:15)
[2016-08-14] MEDS: METOPROLOL SUCC (TopROL XL) 50MG **XL** TAB PO SCH (09:15)
[2016-08-14] MEDS: PANTOPRAZOLE 40MG TAB (PROTONIX) PO SCH (09:15)
[2016-08-14] MEDS: SENOKOT S TAB PO SCH ×2 (09:16→21:04)
--- NOTE | 2016-08-14 11:45 | IPNPDOC ---
Subjective Date Seen The patient was seen on 08/14/16. Subjective Chief Complaint/HPI The patient is a 76-year-old female admitted with a reason for visit of Chronic Back Pain. General: Denies: Chills, Night Sweats Constitutional: Denies: Chills, Fever Eyes: Denies: Pain, Vision change ENT: Denies: Head Aches, Ear Pain Skin: Denies: Rash, Lesions Pulmonary: Denies: Dyspnea, Cough Cardiovascular: Denies: Chest Pain, Palpitations Gastrointestinal: Denies: Nausea, Vomiting Genitourinary: Denies: Dysuria, Frequency Musculoskeletal: Reports: Back Pain Objective Physical Examination General Exam: Positive: Alert, Cooperative, No Acute Distress ENT Exam: Positive: Atraumatic, Mucous membr. moist/pink Neck Exam: Negative: JVD Chest Exam: Positive: Clear to auscultation, Normal air movement Heart Exam: Positive: Rate Normal, Normal S1 Abdomen Exam: Positive: Soft, Negative: Tenderness Extremity Exam: Negative: Tenderness, Swelling Assessment /Plan Plan/VTE VTE Prophylaxis Ordered?: Yes Plan Enterococcus Faecalis Bacteremia of Unclear Etiology Two Sets of Blood Cultures positive on 08/10 & 08/11, sensitivities noted, Started on Ampicillin on 08/12 (Repeat Cultures from 08/13 negative thus far) Of note the patient did have blood cultures positive for the same pathogen on an admission in April 2016, and the source at that time was noted to be from Cellulitis of the Right Wrist, which she was treated with IV Ampicillin and then transitioned to PO Ampicillin at that time. A 2-D echocardiogram was also ordered during that admission given her history of an aortic valve replacement, however no vegetations were noted at that time. On this admission, the patient's main complaint was noted to be lower back pain. She was noted to be febrile on the day of admission, and she once again spiked a fever last night CT Scan of the Lumbar Spine revealed no acute compressions or deformities, and no source of abscess. However, the patient may possibly have Discitis? I have discussed the obtaining an MRI of the Lumbar Spine, but the patient has refused this 2/2 claustrophobia. Will attempt to have anesthesia get involved to obtain this study. At this time, my exam on the patient has no overt source of infection-however possible sources include prosthetic devices such as her aortic valve which was replaced in March 2014 at [facility] and her bilateral hip prostheses. The patient did have a small IV infiltration site on the right forearm as well noted on 08/12, and this line was changed--and this may also be a possible source. The hip joints are not tender or warm to the touch, and the patient does not complain of any acute pain at the sites which is more than her baseline. Ampicillin 2gm q4h started on 08/12/16-->Repeat Blood Cultures negative thus far (08/13) 2D ECHO with no obvious vegetations noted Infectious Diseases consulted, will f/u with recommendations Intractable back pain CT scan of the lumbar spine noted with no acute compression deformities or destructive lesions. Chronic degenerative changes noted on CT, the patient does state that she followed with a Neurosurgeon, Dr. Quezada in the [place], [place] area and was offered a Lumbar fusion in the past, but she declined. The patient states that she would be interested in a consultation here.-->Dr. Sanchez of [facility] consulted No alarm signs of saddle anesthesia, fecal incontinence, or any numbness and tingling in the extremities Continue Lyrica, Toradol, Zanaflex, lidocaine patch as ordered Physical and occupational therapy evals noted Pain Mgmt consulted History of coronary artery disease, myocardial infarction, CABG Cont ASA, Statin, Metoprolol Hypertension Cont metoprolol, chlorthalidone, spironolactone. History of aortic valve replacement Cont aspirin INR noted, will restart Coumadin DVT Prophylaxis On Coumadin Disposition-We'll continue to work up the patient's bacteremic source, ID on board.. Pain Mgmt, [facility] consults pending. F/U with PT/OT for further delineation of disposition. VS, I&O, 24H, [facility] Vital Signs/I&O Vital Signs Date Time Temp Pulse Resp B/P (MAP) Pulse Ox O2 Delivery O2 Flow Rate FiO2 08/14/16 09:15 71 129/63 08/14/16 06:00 97.6 20 93 Room Air I&O- Last 24 Hours up to 6 AM 08/14/16 06:00 Intake Total 1020 ml Output Total 650 ml Balance 370 ml Laboratory Data 24H LABS Laboratory Tests 2 08/14/16 05:43: Erythrocyte Sedimentation Rate > 140H, Prothrombin Time 30.9H, Prothromb Time International Ratio 2.97, Anion Gap 8, Glomerular Filtration Rate > 60.0, Blood Urea Nitrogen 14, Creatinine 0.58, Sodium Level 138, Potassium Level 3.7, Chloride Level 101, Carbon Dioxide Level 29, Calcium Level 8.6L, Aspartate Amino Transf (AST/SGOT) 18, Alanine Aminotransferase (ALT/SGPT) 31, Alkaline Phosphatase 72, Total Bilirubin 0.5, Total Protein 6.2L, Albumin 1.9L, C- Reactive Protein, Quantitative 12.50H, Albumin/Globulin Ratio 0.44L CBC/BMP Laboratory Tests 08/14/16 05:43 Red Blood Count 3.07 L, Mean Corpuscular Volume 93.3, Mean Corpuscular Hemoglobin 29.8, Mean Corpuscular Hemoglobin Concent 32.0, Red Cell Distribution Width 15.1 H, Calcium Level 8.6 L, Aspartate Amino Transf (AST/SGOT ) 18, Alanine Aminotransferase (ALT/SGPT) 31, Alkaline Phosphatase 72, Total Bilirubin 0.5, Total Protein 6.2 L, Albumin 1.9 L Microbiology Microbiology 08/13/16 Blood Culture - Preliminary, Resulted No growth after 24 hours . All specim... 08/13/16 Blood Culture - Preliminary, Resulted No growth after 24 hours . All specim... 08/11/16 Blood Culture - Final, Complete Enterococcus Faecalis 08/11/16 Blood Culture - Final, Complete Enterococcus Faecalis 08/10/16 Blood Culture - Final, Complete Enterococcus Faecalis 08/10/16 Blood Culture - Final, Complete Enterococcus Faecalis 08/10/16 Urine Culture - Final, Complete MAYNOR HERNANDEZ MD August 14, 2016 11:45
[2016-08-14 14:00] VITALS: BP 145/68
[2016-08-14] MEDS ORDERED: GENTAMICIN 80 MG in APPROPRIATE DILUENT 1 EA IV SCH (15:45)
[2016-08-14] MEDS: GENTAMICIN 100 MG in APPROPRIATE DILUENT 1 EA IV SCH (17:43)
--- NOTE | 2016-08-14 18:13 | CR ---
DATE OF CONSULTATION: 08/14/2016 CHIEF COMPLAINT: Low back pain. REFERRING PROVIDER: Dr. Patterson HISTORY OF PRESENT ILLNESS: Laureen is a 76-year-old female who was hospitalized previously in June for severe low back and left hip pain and inability to walk. She presents yesterday with inability to get out of bed due to severe left hip area pain. She is also running a low grade temperature and they are evaluating her for sources of infection. Currently taking Toradol 10 mg three times a day and using Tylenol as needed for breakthrough pain. Rating her pain level as 8/10. Pain is aggravated by any movement. Very apprehensive to use medications to treat her pain. We had a long discussion in regards to different types of pain medication. She was unable to move with physical therapy this morning due to pain. Denies bowel or bladder incontinence. States she was using Tramadol at home for pain and thought that she was doing okay. We saw her in consultation a month ago, at which time she was telling us that she had visual disturbance with Tramadol and that was discontinued. She seemed to do well on Dilaudid 2 mg daily. The patient really does not want strong pain medication like Dilaudid and we discussed using hydrocodone on a scheduled basis. PAST MEDICAL HISTORY: 1. Osteoarthritis of multiple joints including knees, ankles, feet, hands. 2. Spinal stenosis. 3. Aortic valve dysfunction status post aortic valve replacement. 4. Previous AK status post coronary artery bypass graft. 5. Hypertension 6. Hiatal hernia. PAST SURGICAL HISTORY: 1. Left total hip. 2. Right total hip. 3. Cholecystectomy. 4. Right and left knee arthroscopies. 5. Bilateral carpal tunnel release. 6. Aortic root valve replacement. 7. Coronary artery bypass graft. FAMILY HISTORY: Family history of heart disease. History of father with heart disease. Brother has a mechanical valve and reports that her father had valve replacement. SOCIAL HISTORY: The patient lives independently. Poor social support system. Denies smoking. Denies alcohol use. Denies back or recreational drug use. ALLERGIES: Anaphylactic reaction to HEPARIN. TRAMADOL - visual disturbances REVIEW OF SYSTEMS: CONSTITUTIONAL The patient is a poor historian but tells me that she felt she was doing well at home prior to admission. CARDIOVASCULAR: Denies chest pain or shortness of breath. RESPIRATORY: Denies cough or history of chronic bronchitis. GASTROINTESTINAL: Denies abdominal pain. Reporting normal bowel movements. - reporting normal urination. Denies hematuria. MUSCULOSKELETAL: Reports generalized joint pain NEUROLOGIC: Denies seizure disorder. Occasional numbness and tingling in the lower extremities. ENDOCRINE: Positive for diabetes which is diet controlled. PHYSICAL EXAMINATION: Awake, alert, pleasant. Vitals: 100.6, 86, 18, BP 145/68 and 95% on room air. CARDIAC - S1-S2. Normal rate and rhythm. RESPIRATORY - lung sounds clear. Respirations nonlabored. ABDOMEN - Is soft and nontender. Very difficult for the patient to move to side lying position with assistance and in tremendous pain. No specific point tenderness with palpation over the LS spine or lumbar paraspinal. No specific tenderness noted over hips bilaterally. SKIN - Intact. NEUROMUSCULAR - able to move both upper and lower extremities freely. Upper and lower extremities without swelling. Upper and lower extremities warm to touch. The patient reports normal sensation upper and lower extremities. ASSESSMENT: 1. Low back pain. 2. Lumbar spinal stenosis. 3. Left hip pain. PLAN: After discussion with the patient she would like to avoid Dilaudid at this point. Recommend scheduled dosing of hydrocodone 7.5/325 (Anexsia one every 8 hours on a scheduled basis). Consider use of morphine 1 mg IV every 2 hours for pain level 8-10/10. Would not recommend scheduled dosing of muscle relaxant. Recommend continuing Lyrica. Thank you for allowing us to participate in the care of your patient. Please contact us if we can be of assistance. cc: MD FAUSTINO Tovar
[2016-08-14] MEDS: ATORVASTATIN 20 MG TAB PO SCH (21:04)
[2016-08-14] MEDS: MAGNESIUM OXIDE 400 MG TAB (MAG-OX) PO SCH (21:04)
[2016-08-14 22:00] VITALS: BP 130/65
--- NOTE | 2016-08-14 22:07 | CR.PDOC ---
General Primary Care Physician: Grecia Jimenez Referring Provider: MAYNOR HERNANDEZ MD Attending Physician: MAYNOR HERNANDEZ MD Reason for Consultation/CC The patient is a 76-year-old female admitted with a reason for visit of Chronic Back Pain. History of Present Illness HISTORY OF PRESENT ILLNESS: Ms Bruce is a 76 yo F with a history of chronic low back pain who was in her usual state of health when she woke around 2am with severe low back pain. She laid in bed for a a few hours unable to fall back asleep due to the pain. She felt the urge to urinate but states her back pain was too great so she relieved herself in bed. She denies bladder or bowel incontinence. She believes she was able to move her legs and had normal LE sensations. The pain in her low back was not improving so she had called 911 and an ambulance arrived bring her to the ED. She denies any recent illnesses or falls. She is unable to recall any events which could have exacerbated her low back pain. Upon further questioning, she states her back pain had been gradually becoming worse within the past few days prior to her admission. At home, she lives independently and ambulates without assistance. She reports a known history of decreased sensation in her LE. She denies fevers , chills, night sweats, and paresthesias. ALLERGIES: Heparin HOME MEDICATIONS: Please see below. PAST MEDICAL HISTORY: 1. Chronic low back pain 2. OA 3. AV replacement; porcine 4. HTN 5. Diabetes mellitus type 2 NEUROSURGICAL HISTORY: 1. Bilateral carpal tunnel release SOCIAL HISTORY: Household members: Lives alone Tobacco use: denies ETOH: denies Illicit drug use: denies IV drug use: denies REVIEW OF SYSTEMS: as per HPI PHYSICAL EXAMINATION: Exam was limited d/t pain. VITAL SIGNS: Please see below. GENERAL APPEARANCE: elderly overweight lady, laying supine, poor historian. She is alert and orientated x3. NEUROLOGICAL: Speech is slow. Has difficulty focusing on the conversation. Motor/muscle strength: LE- unable to raise legs against gravity. Too painful to flex and extend knees. Positive crepitus bilaterally in knees with minimal flexion. UE= 3.5/5 throughout. SLR is negative bilaterally. Positive jump sign over palpation of L greater trochanteric bursa, mildly tender on the R. DTRs= BR and biceps increased bilaterally, absent in triceps and Achilles tendons bilaterally, unable to tolerate assessment of patellar DTRs. Sensation: decreased to vibration in LE, L<R. There is no ankle clonus. Babinski's reflex is absent bilaterally. Hoffmans sign is negative. No calf pain bilaterally. Unable to ambulate. LABORATORY DATA: WBC= 7.9 Na+= 138 Fasting glucose= 155 CRP= 12.5; improved from yesterday 15.0. IMPRESSION: 1. Degenerative spine disease. 2. ? discitis vs osteomyelitis. PLAN/RECOMMENDATIONS: Order MRI of LS and pelvis, will need an anesthesia consult to have MRI with sedation. Pt will not be able to tolerate the movement and reports history of claustrophobia. She is refusing Valium prior to MRI. --per Dr Sanchez--> Please call neurosurgery service when MRI results are available. Thank you for the consultation. Charisse Cheung, RPA-C Dr Sanchez Vital Signs/I&O Vital Signs Date Time Temp Pulse Resp B/P (MAP) Pulse Ox O2 Delivery O2 Flow Rate FiO2 08/14/16 14:00 100.6 86 18 145/68 (93) 95 Room Air I&O- Last 24 Hours up to 6 AM 08/14/16 06:00 Intake Total 1020 ml Output Total 650 ml Balance 370 ml Laboratory Data 24H Labs Laboratory Tests 2 08/14/16 05:43: Erythrocyte Sedimentation Rate > 140H, Prothrombin Time 30.9H, Prothromb Time International Ratio 2.97, Anion Gap 8, Glomerular Filtration Rate > 60.0, Blood Urea Nitrogen 14, Creatinine 0.58, Sodium Level 138, Potassium Level 3.7, Chloride Level 101, Carbon Dioxide Level 29, Calcium Level 8.6L, Aspartate Amino Transf (AST/SGOT) 18, Alanine Aminotransferase (ALT/SGPT) 31, Alkaline Phosphatase 72, Total Bilirubin 0.5, Total Protein 6.2L, Albumin 1.9L, C- Reactive Protein, Quantitative 12.50H, Albumin/Globulin Ratio 0.44L CBC/BMP Laboratory Tests 08/14/16 05:43 Red Blood Count 3.07 L, Mean Corpuscular Volume 93.3, Mean Corpuscular Hemoglobin 29.8, Mean Corpuscular Hemoglobin Concent 32.0, Red Cell Distribution Width 15.1 H, Calcium Level 8.6 L, Aspartate Amino Transf (AST/SGOT ) 18, Alanine Aminotransferase (ALT/SGPT) 31, Alkaline Phosphatase 72, Total Bilirubin 0.5, Total Protein 6.2 L, Albumin 1.9 L Microbiology Microbiology 08/13/16 Blood Culture - Preliminary, Resulted No growth after 24 hours . All specim... 08/13/16 Blood Culture - Preliminary, Resulted No growth after 24 hours . All specim... 08/11/16 Blood Culture - Final, Complete Enterococcus Faecalis 08/11/16 Blood Culture - Final, Complete Enterococcus Faecalis 08/10/16 Blood Culture - Final, Complete Enterococcus Faecalis 08/10/16 Blood Culture - Final, Complete Enterococcus Faecalis 08/10/16 Urine Culture - Final, Complete Allergies Coded Allergies: Heparin (Unverified Allergy, Unknown, Anaphylaxis, 04/14/16) Home Medications Scheduled Acetaminophen (Tylenol 8 Hour Arthritis) 650 Mg Tab, 650 MG PO TID, (Reported) Aspirin (Aspirin EC) 81 Mg Tabec, 81 MG PO DAILY, (Reported) Atorvastatin Calcium (Atorvastatin Calcium) 40 Mg Tab, 40 MG PO QHS, (Reported) Chlorthalidone (Chlorthalidone) 12.5 Mg Halftab, 12.5 MG PO 3XW, (Reported) SUNDAY, SUNDAY, SUNDAY Esomeprazole Magnesium Trihydr (Nexium) 40 Mg Cap, 40 MG PO DAILY, (Reported) PATIENT HAS BEEN OUT FOR A FEW DAYS AND HAS BEEN TAKING RANITIDINE Lidocaine (Lidoderm) 5 % Dis, 5 PATCH TD DAILY, (Reported) MAX DOSE OF 3 PATCHES... PATIENT STATES SHE HAS BEEN USING 5 TO 6 MOST DAYS AND APPLYING WHEREVER SHE FEELS NEEDED. CURRENTLY HAS ONE APPLIED TO RIGHT KNEE. Magnesium Oxide (Magnesium Oxide) 400 Mg Tab, 400 MG PO QHS, (Reported) Metoprolol Succinate (Metoprolol Succinate ER) 50 Mg Tab, 50 MG PO DAILY, ( Reported) Pregabalin (Lyrica) 50 Mg Cap, 100 MG PO TID, (Reported) PATIENT STATES SHE STARTED TAKING 100MG TID OF 08/09/16 NOON. RX STATES 50MG TID Spironolactone (Spironolactone) 25 Mg Tab, 12.5 MG PO DAILY, (Reported) Warfarin Sod (Coumadin) 4 Mg Tab, 4 MG PO 1XWK, (Reported) QPM: MONDAYS Warfarin Sod (Coumadin) 3 Mg Tab, 3 MG PO 6XWK, (Reported) QPM: SUN, , WED, , SUN, SAT Scheduled PRN Meclizine HCl (Meclizine HCl) 25 Mg Tab, 25 TAB PO Q6HP PRN for DIZZINESS, ( Reported) Nitroglycerin (Nitrostat) 0.4 Mg Subl, 0.4 MG SL NITRO PRN for ANGINA, (Reported ) Tramadol HCl (Tramadol HCl) 50 Mg Tab, 50 MG PO 5XD PRN for PAIN, (Reported) HANG CHEUNG PA-C August 14, 2016 21:58
[2016-08-15] VITALS (7 sets, daily range): BP systolic 92–162; BP diastolic 51–80
[2016-08-15] MEDS: ACETAMINOPHEN TAB 650MG DOSE (2X325MG) PO PRN ×2 (00:01→19:42)
[2016-08-15] MEDS: AMPICILLIN SOD 2 GM in D5W MINI-BAG PLUS 100 ML IV SCH ×6 (02:10→21:12)
[2016-08-15] MEDS ORDERED: MORPHINE 2 MG/ML 1ML SYRINGE IV ONE (05:15)
[2016-08-15] MEDS: GENTAMICIN 100 MG in APPROPRIATE DILUENT 1 EA IV SCH ×2 (05:55→18:47)
[2016-08-15 07:36] LABS: MEAN CORPUSCULAR HEMOGLOBIN 29.4 pg (27.0-33.0); MEAN CORPUSCULAR HGB CONC 32.2 g/dl (32.0-36.5); MEAN CORPUSCULAR VOLUME 91.4 fl (80.0-96.0); PLATELET COUNT, AUTOMATED 299 k/mm3 (150-450); RED CELL DISTRIBUTION WIDTH 15.1 % (11.5-14.5); WHITE BLOOD COUNT 7.2 K/mm3 (4.0-10.0)
[2016-08-15 07:38] LABS: INR 2.33
[2016-08-15 07:49] LABS: ALBUMIN 2.1 GM/DL (3.2-5.2); ALBUMIN/GLOBULIN RATIO 0.47 (1.00-1.93); ALKALINE PHOSPHATASE 80 U/L (45-117); ALT/SGPT 34 U/L (12-78); ANION GAP 8 MEQ/L (8-16); AST/SGOT 20 U/L (15-37); BILIRUBIN,TOTAL 0.5 MG/DL (0.2-1.0); BLOOD UREA NITROGEN 11 MG/DL (7-18); CALCIUM LEVEL 8.8 MG/DL (8.8-10.2); CARBON DIOXIDE LEVEL 28 MEQ/L (21-32); CHLORIDE LEVEL 104 MEQ/L (98-107); CREATININE FOR GFR 0.54 MG/DL (0.55-1.02); GLOMERULAR FILTRATION RATE > 60.0 (>39); GLUCOSE, FASTING 154 MG/DL (83-110); POTASSIUM SERUM 3.3 MEQ/L (3.5-5.1); SODIUM LEVEL 140 MEQ/L (136-145); TOTAL PROTEIN 6.6 GM/DL (6.4-8.2)
[2016-08-15] MEDS ORDERED: POTASSIUM CHLORIDE 10 MEQ SR TABLET PO ONE (09:00)
[2016-08-15 09:01] LABS: ERYTHROCYTE SEDIMENTATION RATE > 140 mm/hr (0-30)
[2016-08-15] MEDS: LIDOCAINE 5% (LIDODERM) PATCH TD SCH ×2 (09:34→20:21)
[2016-08-15] MEDS: BISACODYL 5 MG TAB PO SCH (09:34)
[2016-08-15] MEDS: SPIRONOLACTONE 12.5MG PER 1/2 TABLET PO SCH (09:34)
[2016-08-15] MEDS: PREGABALIN 100 MG CAP (LYRICA) PO SCH ×3 (09:38→20:20)
[2016-08-15] MEDS: PANTOPRAZOLE 40MG TAB (PROTONIX) PO SCH (09:38)
[2016-08-15] MEDS: ASPIRIN 81 MG ENTERIC TAB PO SCH (09:38)
[2016-08-15] MEDS: SENOKOT S TAB PO SCH ×2 (09:39→20:20)
[2016-08-15] MEDS: METOPROLOL SUCC (TopROL XL) 50MG **XL** TAB PO SCH (09:39)
[2016-08-15] MEDS: MORPHINE 2 MG/ML 1ML SYRINGE IV PRN ×3 (10:15→19:54)
--- NOTE | 2016-08-15 10:56 | CR ---
DATE OF CONSULTATION: 08/13/2016 REASON FOR CONSULTATION: Enterococcus faecalis bacteremia with severe low back pain. HISTORY OF PRESENT ILLNESS: Mrs. Bruce is a pleasant 76-year-old female who was admitted on 08/10 with complaint of severe low back pain. The patient has chronic low back pain but this pain has gotten out of control. She stated that this whole situation started in March 2016 when she was admitted with pneumonia. During that hospitalization, she had blood cultures that were negative and was diagnosed with pneumonia. Then she was later admitted on 05/15 with Enterococcus faecalis bacteremia which was felt to be related to a cellulitis of her wrist with right wrist swelling and left knee swelling. The patient was treated initially with ampicillin and then with amoxicillin. On 07/10, the patient was readmitted with left hip pain. She had a CT of the hip which did not show any infection. She was discharged on 07/21. Her ESR was 75, CRP was 11.4. During that hospitalization, the patient had a low grade fever of 100 but she did not receive any antibiotic and did not have any blood cultures done. The ESR elevation and CRP were not explained. She had a CT of the left hip without contrast which showed a hip replacement and no abnormal fluid collection that was noted. She was seen in consultation by orthopedic surgery who did not feel that this was an infected joint. On 08/10, the patient was readmitted with severe back pain difficulty managing at home. Shortness of breath due to the increased pain but no chest pain. No nausea, vomiting or diarrhea. No abdominal pain. She did complain of decreased appetite. She had not noticed that she had persistent fever or night sweats. The patient has had fevers since admission with temperatures up to 102.3. She denies chest pain or shortness of breath. LABORATORY DATA: White count has been within normal. Hemoglobin was 7.9, hemoglobin 9.2, hematocrit 28.7, platelets 282. ESR more than 140. Sodium 138, potassium 3.7, chloride 101, bicarb 29, BUN 14, creatinine 0.58, glucose 155, calcium 8.6, AST 18, ALT 31, alk phos 72, CRP was 12.5 down from 15, albumin 1.9. Urinalysis had +1 ketone, 1 white cell, 3 red cells. Blood cultures on 08/10 two sets were positive for Enterococcus faecalis. Urine culture was negative. 08/11 two more sets were positive for Enterococcus faecalis. Ampicillin was finally started on 08/12 and blood cultures on 08/13 were no growth in 2 days. She had a CT of the lumbar spine which was done without contrast. The patient refused IV contrast because of poor IV access, showed grade 1 anterolisthesis of L4 over L5 and L5-S1. Diffuse degenerative changes T10-T11 through L5-S1 with severe spinal canal stenosis mostly greatest at L4-L5. I reviewed the films with Dr. Gaxiola who did not feel that there was evidence of infection on that CT without contrast. CT of the abdomen and pelvis showed an aortic valve replacement, cholecystectomy, small bilateral renal cysts. Tiny enterorenal calculi right kidney without hydronephrosis and bilateral hip replacement. PAST MEDICAL HISTORY: Significant for: Chronic low back pain due to degenerative disc disease with spinal stenosis. Aortic valve repair and coronary artery bypass graft (CABG) done in 2014 at [facility] by Dr. Mckenzie. History of myocardial infarction (SC). Hypertension. Hiatus hernia. Diabetes diet controlled. History of deep venous thrombosis (DVT) on Coumadin. PAST SURGICAL HISTORY: Bilateral total hip arthroplasty. Cholecystectomy. Bilateral carpal tunnel repair. Aortic valve replacement, porcine, and coronary artery bypass graft (CABG) times two in 2014. SOCIAL HISTORY: She lives alone in [place]. Her son is in 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 She walks mostly at home using a walker, sometimes a cane but this has gotten much worse. She denies tobacco or alcohol use. FAMILY HISTORY: Parents of heart disease and a brother has a mechanical valve. PHYSICAL EXAM: She is a pleasant 76-year-old female in no acute distress, alert and oriented times three. Head and ENT normocephalic. Oropharynx is clear with no lesions. Neck is supple. No JVD. No carotid bruits. No adenopathy. Lungs are clear. No wheezes, rales or rhonchi. Heart: There is normal S1, S2 with systolic ejection murmur 2/6 heard at the left upper sternal border. Abdomen: Soft, nontender. No hepatosplenomegaly. Bowel sounds normoactive throughout. Extremities: Dorsalis pedis pulses. No edema. She has significant pain in both in the leg with straight leg raising between 20 and 30 degrees. She has some muscle weakness due to pain. Skin: No rashes. No lesions. Neurologic exam: Alert and oriented times three. Lower extremity strength was difficult to assess due to severe pain. Back: Mild lumbosacral tenderness diffusely. Echocardiogram done by Dr. Cheng on 08/13 shows appropriate functioning, bioprosthetic valve, aortic valve degenerative changes of the mitral valve without functional significant valvular abnormalities. Could not appreciate a vegetation. Mild concentric LVH, mild dilated left atrium. IMPRESSION: This is a 76-year-old female who was admitted with severe back pain, persistent fever for the past 5 days and has 48 hours of Enterococcus faecalis bacteremia. The patient was started on ampicillin was resolution of bacteremia, but the concern is that she has had two different episodes with Enterococcus faecalis bacteremia in April and in May with all those chronic joint pains that make it very concerning for prosthetic valve endocarditis of her aortic valve. The patient now has severe back pain with no evidence on CT of discitis or an epidural abscess but she needs better imaging with MRI and contrast. The patient was seen by neurosurgery, Dr. Sanchez, who will be ordering the MRI of the spine. ALLERGIES: Heparin. MEDICATIONS: - Warfarin 3 mg by mouth daily - ampicillin 2 grams IV every 4 hours - Toradol 10 mg by mouth three times daily - Dulcolax 5 mg by mouth daily - Senokot one tablet by mouth twice daily - chlorthalidone 12.5 mg Sunday, Sunday, Sunday - magnesium oxide 400 mg by mouth daily at bedtime - Lipitor 40 mg daily at bedtime - Lyrica 100 mg by mouth three times daily - tizanidine 2 mg by mouth every 8 as needed daily - aspirin 81 mg daily - Protonix 40 mg daily - metoprolol 50 mg daily - aldactone 12.5 mg daily PLAN: Add gentamicin at a dose of 80 mg IV every 12 hours along with ampicillin 2 grams IV every 4 hours. Gentamicin trough needs to be low at less than 1 for synergy and peak between 3 and 5. Please monitor for kidney toxicity. The patient is elderly and is already on many medications. I would avoid anti-inflammatories in a 76-year-old female with ketorolac. She is already on warfarin. I have discussed the case with Dr. Dominguez who will try to add her to his schedule for ANDRIY with concern of endocarditis. If ANDRIY is negative, then we will pursue with an MRI of the lumbar spine looking for discitis and epidural abscess. The patient probably will need a PICC line and home IV antibiotic but further plan will depend on findings on ANDRIY and MRI.
[2016-08-15] MEDS: ANEXSIA, NORCO 7.5MG/325MG TABLET(HYDROCODONE/APAP) PO SCH ×2 (13:02→21:12)
--- NOTE | 2016-08-15 13:05 | IPNPDOC ---
Text Note Date of Service The patient was seen on 08/15/16. NOTE Subjective: Patient is a 76 year old female who presented with worsening lower back pain and inability to walk. Patient nots that her pain has not resolved. Objective: Vitals (See below) General: Lying in bed, no acute distress, comfortable, AAOx3 HEENT: NC, AT CVS: RRR, +S1S2 Lungs: Fair air entry b/l, -w/r/r Abdomen: Soft, ND, NT, +BSx4 Extremities: +PPx4, - Edema, - Calf tenderness Assessment and plan: 1. Bacteremia - 2/2 Enterococcus faecalis - possibly 2/2 prosthesis infection ( Aortic valve replacement, bilateral hip replacement), possible diskitis - etiology not delineated - History of prior bacteremia (04/2016); was attributed to right wrist cellulitis - Blood cultures: Positive on 08/10 and 08/11 - s/p TTE: No visible vegetations were noted, history of aortic valve replacement (bioprosthetic - 03/2014) - Plan for ANDRIY today with Dr. Dominguez - Will consider MRI lumbar spine (will require anesthesia for sedation) - will keep NPO - c/w Ampicillin and Gentamycin (Day #4) - Dr. Mayer (infectious disease) following 2. Intractable back pain - Presented with back pain preventing her from ambulating - Physical reveals normal strength, restricted by pain; No saddle anesthesia / incontinence / sensory changes noted - CT lumbar spine: no acute deformities, chronic degenerative changes - Pain management consulted; will follow recommendation - Neurosurgical team consulted; require MRI lumbar spine - Will start [place] and Morphine PRN, c/w Lyrica - Will get PT onboard when patient is tolerating pain 3. CAD s/p CABG / MA - c/w ASA, Atorvastatin, Metoprolol 4. HTN - c/w Metoprolol, Spironolactone and Chlorthalidone 5. AVR, Bioprosthetic - INR of 2.33 - c/w ASA and Coumadin 6. Normocytic anemia - Hg stable 7. Hypokalemia - will supplement 8. GI prophylaxis - c/w Protonix 9. DVT prophylaxis - c/w full anticoagulation with Coumadin Disposition: - Will get ANDRIY - Will require MRI with sedation - ID for etiology of bacteremia - Neurosurgery / Pain management for back pain - Will require physical therapy to determine disposition recommendation VS,Fishbone, I+O VS, Fishbone, I+O Laboratory Tests 08/15/16 07:07 Red Blood Count 3.39 L, Mean Corpuscular Volume 91.4, Mean Corpuscular Hemoglobin 29.4, Mean Corpuscular Hemoglobin Concent 32.2, Red Cell Distribution Width 15.1 H, Calcium Level 8.8, Aspartate Amino Transf (AST/SGOT) 20, Alanine Aminotransferase (ALT/SGPT) 34, Alkaline Phosphatase 80, Total Bilirubin 0.5, Total Protein 6.6, Albumin 2.1 L Vital Signs Date Time Temp Pulse Resp B/P (MAP) Pulse Ox O2 Delivery O2 Flow Rate FiO2 08/15/16 10:25 18 08/15/16 10:15 Room Air 08/15/16 09:39 74 156/72 08/15/16 06:00 98.2 97 I&O- Last 24 Hours up to 6 AM 08/15/16 06:00 Intake Total 840 ml Output Total 1200 ml Balance -360 ml PAVAN GASPAR MD August 15, 2016 13:05
[2016-08-15] MEDS ORDERED: MIDAZOLAM INJ 2 MG/2 ML VIAL (J2250) As Ordered ONE (18:13)
[2016-08-15] MEDS ORDERED: LIDOCAINE 2% INJ 100 MG/5 ML SDV (FOR ANES.) As Ordered ONE (18:13)
[2016-08-15] MEDS ORDERED: fentaNYL 100 MCG/2 ML INJECTION (J3010) As Ordered ONE (18:13)
[2016-08-15] MEDS ORDERED: PROPOFOL 200 MG/20 ML VIAL As Ordered ONE (18:13)
[2016-08-15] MEDS: tiZANidine 4 MG TAB PO PRN (18:47)
[2016-08-15] MEDS: WARFARIN SOD 3 MG TAB PO SCH (18:47)
--- NOTE | 2016-08-15 19:01 | T-ECHO ---
DATE OF PROCEDURE: 08/15/2016 REFERRING PHYSICIAN: Dr. Ryan Mayer INDICATION: Enterococcus fecalis sepsis. PREPROCEDURE DIAGNOSIS: Enterococcus fecalis sepsis. POSTPROCEDURE DIAGNOSES: Enterococcus fecalis sepsis and additional findings of status-post aortic valve bioprosthesis (normal functioning), mild mitral annular calcification with mild mitral regurgitation. Lipomatous hypertrophy of the intraatrial septum. No vegetations. PROCEDURE PERFORMED: Transesophageal echocardiogram. PROCEDURE PERFORMED BY: Matty Dominguez MD SYNTHETIC CHEMIST: None. CONSCIOUS SEDATION: Monitored anesthetic care as applied by the CUTTING AND CREASING PRESS OPERATOR and anesthesiologist. (Dr. Immanuel Slater). COMPLICATIONS: None. PROCEDURE DESCRIPTION: After patient received adequate sedation per the CUTTING AND CREASING PRESS OPERATOR and anesthesiologist and after patient received Cetacaine spray to the pharynx the Yaneli two-dimensional multiplane transesophageal echocardiogram probe was placed by Der. Dominguez into a esophagus without difficulty. Rhythm was sinus. Aortic valve was a bioprosthesis which appeared well seated and the cusp appeared normal. There was no regurgitation identified involving the aortic bioprosthesis and no stenosis apparent by visual assessment. No vegetations were seen on the aortic valve bioprosthesis. No vegetations were seen on the mitral, tricuspid, and pulmonic valves. Pulmonic valve was difficulty to visualized but appeared normal. Tricuspid leaflets were only moderately well visualized by appeared normal. Mild mitral annular calcification was present. Mild mitral regurgitation was present. No pericardial effusion. No masses or thrombi were seen within the atria or their appendages. Pulmonary vein flow by pulsed wave Doppler in the left upper pulmonary vein was normal. Lipomatous hypertrophy of the intraventricular septum (1.6 cm) is present. Atrial septum was intact anatomically and by color flow Doppler. The left ventricle appeared normal in size and systolic function. Normal left ventricle (LV) systolic function. Left ventricle ejection fraction (LVEF) 65% by visual estimate. No regional wall motion abnormalities apparent. Visualization of the entire left ventricle was somewhat difficult due to difficulty advancing of the transesophageal probe into the stomach. The descending thoracic aorta was technically difficult to visualize. CONCLUSIONS: 1. Normally functioning and well seated aortic valve bioprosthesis. 2. Mild mitral annular calcification with mild mitral regurgitation. 3. No vegetations identified on any of the cardiac valves. 4. Lipomatous hypertrophy of the atrial septum. 5. Normal LV systolic function. No regional wall motion abnormalities of the left ventricle. 6. No pericardial effusion. ADDITIONAL COMMENTS: Absence of vegetations on transesophageal echocardiography does not necessarily rule out infect of endocarditis.
[2016-08-15] MEDS: MAGNESIUM OXIDE 400 MG TAB (MAG-OX) PO SCH (20:20)
[2016-08-15] MEDS: ATORVASTATIN 20 MG TAB PO SCH (20:20)
[2016-08-15] MEDS: **NOTE PATIENT COMMENT** MISC XX SCH (20:21)
[2016-08-16] MEDS: AMPICILLIN SOD 2 GM in D5W MINI-BAG PLUS 100 ML IV SCH ×6 (01:35→21:30)
[2016-08-16 02:00] VITALS: BP 126/74
[2016-08-16] MEDS: tiZANidine 4 MG TAB PO PRN ×3 (02:43→23:16)
[2016-08-16] MEDS: ACETAMINOPHEN TAB 650MG DOSE (2X325MG) PO PRN (02:43)
[2016-08-16] MEDS: ANEXSIA, NORCO 7.5MG/325MG TABLET(HYDROCODONE/APAP) PO SCH ×3 (05:08→21:29)
[2016-08-16] MEDS: GENTAMICIN 100 MG in APPROPRIATE DILUENT 1 EA IV SCH (05:49)
[2016-08-16 06:00] VITALS: BP 105/57
[2016-08-16] MEDS ORDERED: LORazepam 2 MG/ML VIAL (J2060) IV ONE (07:45)
[2016-08-16 08:10] LABS: MEAN CORPUSCULAR HEMOGLOBIN 29.2 pg (27.0-33.0); MEAN CORPUSCULAR HGB CONC 31.5 g/dl (32.0-36.5); MEAN CORPUSCULAR VOLUME 92.8 fl (80.0-96.0); RED CELL DISTRIBUTION WIDTH 15.2 % (11.5-14.5); WHITE BLOOD COUNT 6.3 K/mm3 (4.0-10.0)
[2016-08-16 08:26] LABS: ALBUMIN/GLOBULIN RATIO 0.47 (1.00-1.93); ALKALINE PHOSPHATASE 79 U/L (45-117); ALT/SGPT 30 U/L (12-78); ANION GAP 8 MEQ/L (8-16); AST/SGOT 17 U/L (15-37); BILIRUBIN,TOTAL 0.5 MG/DL (0.2-1.0); BLOOD UREA NITROGEN 14 MG/DL (7-18); CALCIUM LEVEL 9.3 MG/DL (8.8-10.2); CARBON DIOXIDE LEVEL 28 MEQ/L (21-32); CHLORIDE LEVEL 105 MEQ/L (98-107); CREATININE FOR GFR 0.69 MG/DL (0.55-1.02); GLOMERULAR FILTRATION RATE > 60.0 (>39); GLUCOSE, FASTING 125 MG/DL (83-110); POTASSIUM SERUM 4.3 MEQ/L (3.5-5.1); SODIUM LEVEL 141 MEQ/L (136-145); TOTAL PROTEIN 6.3 GM/DL (6.4-8.2)
[2016-08-16 08:28] LABS: INR 2.07
[2016-08-16] MEDS: SPIRONOLACTONE 12.5MG PER 1/2 TABLET PO SCH (08:54)
[2016-08-16] MEDS: PREGABALIN 100 MG CAP (LYRICA) PO SCH ×3 (08:54→20:13)
[2016-08-16] MEDS: CHLORTHALIDONE 12.5MG PER 1/2 TABLET PO SCH (08:54)
[2016-08-16] MEDS: LIDOCAINE 5% (LIDODERM) PATCH TD SCH ×2 (08:54→20:13)
[2016-08-16] MEDS: PANTOPRAZOLE 40MG TAB (PROTONIX) PO SCH (08:55)
[2016-08-16] MEDS: SENOKOT S TAB PO SCH ×2 (08:55→20:13)
[2016-08-16] MEDS: ASPIRIN 81 MG ENTERIC TAB PO SCH (08:55)
[2016-08-16] MEDS: METOPROLOL SUCC (TopROL XL) 50MG **XL** TAB PO SCH ×2 (08:55→09:00)
[2016-08-16] MEDS: BISACODYL 5 MG TAB PO SCH (08:55)
[2016-08-16] MEDS: **NOTE PATIENT COMMENT** MISC XX SCH ×2 (08:56→20:14)
[2016-08-16 10:00] VITALS: BP 150/70
--- NOTE | 2016-08-16 10:07 | IPNPDOC ---
Text Note Date of Service The patient was seen on 08/16/16. NOTE Subjective: Patient is a 76 year old female with a PMHx of Chronic back pain, OA / Spinal stenosis, AV replacement w/ bioprosthetic valve, CAD s/p CABG (04/2016) , HTN, Hiatal hernia, DM2, Hx of DVT (on Coumadin) who presented to the ER with left hip pain and worsening of her lower back pain. She has been having difficulty with ambulation and was admitted to control her back pain. Patient is a 76 year old female who presented with worsening lower back pain and inability to walk. Patient nots that her pain has not resolved. Objective: Vitals (See below) General: Lying in bed, no acute distress, comfortable, AAOx3 HEENT: NC, AT CVS: RRR, +S1S2 Lungs: Fair air entry b/l, -w/r/r Abdomen: Soft, ND, NT, +BSx4 Extremities: +PPx4, - Edema, - Calf tenderness Assessment and plan: 1. Bacteremia - 2/2 Enterococcus faecalis - possibly 2/2 prosthesis infection ( Aortic valve replacement, bilateral hip replacement), possible diskitis - etiology not delineated - History of prior bacteremia (04/2016); was attributed to right wrist cellulitis - Blood cultures: Positive on 08/10 and 08/11 - s/p TTE: No visible vegetations were noted, history of aortic valve replacement (bioprosthetic - 03/2014) - s/p ANDRIY: Dr. Dominguez; no evidence of vegetations - Will get MRI lumbar spine; Discussed receiving mild sedation wit the procedure and she was against this; will only accept open MRI - c/w Ampicillin and Gentamycin (Day #5) - Dr. Mayer (infectious disease) following 2. Intractable back pain - Presented with back pain preventing her from ambulating - Physical reveals normal strength, restricted by pain; No saddle anesthesia / incontinence / sensory changes noted - CT lumbar spine: no acute deformities, chronic degenerative changes - Pain management consulted; will follow recommendation - Neurosurgical team consulted; require MRI lumbar spine - c/w [place] and Morphine PRN, c/w Lyrica - c/w PT 3. CAD s/p CABG / [place] - c/w ASA, Atorvastatin, Metoprolol 4. HTN - c/w Metoprolol, Spironolactone and Chlorthalidone 5. AVR, Bioprosthetic - INR of 2.07 - c/w ASA and Coumadin 6. Normocytic anemia - Hg stable 7. s/p Hypokalemia 8. GI prophylaxis - c/w Protonix 9. DVT prophylaxis - c/w full anticoagulation with Coumadin Disposition: - Will require MRI; will go for open MRI - ID for etiology of bacteremia - c/w current pain therapy regimen - Awaiting PT / OT for disposition recommendations VS,Mary, I+O VS, Keline, I+O Laboratory Tests 08/16/16 07:50 Red Blood Count 3.18 L, Mean Corpuscular Volume 92.8, Mean Corpuscular Hemoglobin 29.2, Mean Corpuscular Hemoglobin Concent 31.5 L, Red Cell Distribution Width 15.2 H, Calcium Level 9.3, Aspartate Amino Transf (AST/SGOT) 17, Alanine Aminotransferase (ALT/SGPT) 30, Alkaline Phosphatase 79, Total Bilirubin 0.5, Total Protein 6.3 L, Albumin 2.0 L Vital Signs Date Time Temp Pulse Resp B/P (MAP) Pulse Ox O2 Delivery O2 Flow Rate FiO2 08/16/16 09:00 71 119/58 08/16/16 06:00 98.0 19 94 Room Air I&O- Last 24 Hours up to 6 AM 08/16/16 06:00 Intake Total 1360 ml Output Total 1750 ml Balance -390 ml PAVAN GASPAR MD August 16, 2016 10:06
[2016-08-16 14:00] VITALS: BP 118/59
[2016-08-16] MEDS: WARFARIN SOD 3 MG TAB PO SCH (17:02)
[2016-08-16] MEDS: GENTAMICIN 80 MG in APPROPRIATE DILUENT 1 EA IV SCH (17:51)
[2016-08-16] MEDS: ATORVASTATIN 20 MG TAB PO SCH (20:12)
[2016-08-16] MEDS: MAGNESIUM OXIDE 400 MG TAB (MAG-OX) PO SCH (20:12)
--- NOTE | 2016-08-16 21:36 | IPN ---
DATE: 08/15/2016 Mrs. Bruce was in tears today after occupational therapy (OT) came to help her getting out of bed. She was crying for about 3 hours stating her back pain is unbearable. OBJECTIVE: Pulse 94, respirations 18, blood pressure 168/88, oxygen saturation 96% on room air. Heart: Normal S1, S2, with a faint systolic ejection murmur 1/6 at the left upper sternal border. Lungs: Are clear. No wheezes, rales or rhonchi. Abdomen: Soft, nontender. Back: Excruciating tenderness at the lower lumbar area. Extremities: No edema. She has also bilateral knee tenderness but no erythema or warmth. LABORATORY DATA: White count is 7.2, hemoglobin 10, hematocrit 30.9, platelets 299. ESR more than 140. Sodium 140, potassium 3.3, chloride 104, bicarbonate 28, BUN 11, creatinine 0.54, glucose 154, calcium 8.8. Liver profile normal. CRP is down to 10.7. Blood cultures four sets were positive for Enterococcus faecalis on 08/10/2016 and 08/11/2016. Urine culture was negative. Blood culture was negative on 08/13/2016. MEDICATIONS: - ampicillin 2 grams IV every 4 hours - gentamicin 100 mg IV every 12 hours, gentamicin peak was 4.7 and trough was 0.9 IMPRESSION: 1. Enterococcus faecalis bacteremia with severe low back pain in a patient with bioprosthetic aortic valve. The patient had transesophageal echocardiogram done today by Dr. Dominguez which shows no evidence of vegetation. She has a normal wall functioning aortic valve bioprosthesis, mild annular calcification of the mitral valve with mild regurgitation. There is no vegetation on cardiac valves. Source of Enterococcus (E) faecalis bacteremia remains to be found. I suspect that it is probably in her lumbar spine. Continue ampicillin and gentamicin for synergy. PLAN: Schedule an MRI with [facility] for tomorrow with IV sedation, the patient states she is claustrophobic. Neurosurgery continues to follow. Depending on findings of MRI further decision will be done about her treatment. Looking to rule out discitis versus epidural abscess. JOHND
[2016-08-16 22:00] VITALS: BP 133/58
--- NOTE | 2016-08-17 01:28 | IPN ---
DATE: 08/16/2016 Laureen is a 76-year-old female with aortic valve bioprosthetic who was admitted with fever and severe low back pain. The patient had a transesophageal echocardiogram yesterday, which was negative for vegetation. She had positive blood cultures for Enterococcus faecalis. She continues complaining of severe back pain with inability to get out of bed or to walk. The pain is intense. She uses a bedpan. She continues to be febrile with temperature of 100.6, pulse 77, respirations 18, blood pressure 118/59, oxygen saturation 98% on room air. HEART: Normal S1, S2 with no murmurs appreciated. LUNGS: Clear. ABDOMEN: Soft, nontender. EXTREMITIES: No edema. She has bilateral swollen knee joints but with no effusion. They are more boggy from arthritic changes. Straight leg raising is positive at less than 20 degrees bilaterally. She is pretty weak, both legs, and is not able to elevate her legs on her own. LABORATORY DATA: White count of 6.3, hemoglobin 9.3, hematocrit 29.5, platelets 325. Sedimentation rate is 95. Sodium 141, potassium 4.3, chloride 105, bicarbonate 28, BUN 14, creatinine 0.69, glucose 125, calcium 9.3. AST 17, ALT 30, alkaline phosphatase 79. CRP 10.6, which is down from 15. Microbiology: On August 13, blood cultures no growth after 72 hours. On August 10 and August 11 four sets of blood cultures are positive for Enterococcus (E) faecalis. IMPRESSION: 1. Enterococcus faecalis bacteremia with no vegetation on the prosthetic valve. At this point, I am concerned about discitis or an epidural abscess. The patient is scheduled for an open MRI on Sunday, as she is very scared of closed MRI, and she is clautriphobic. Repeat cultures have been negative on ampicillin and gentamicin. The patient probably will need 6 weeks of IV antibiotics. 2. Intractable back pain with severe spinal stenosis. The patient is awaiting open MRI. Depending on findings, if there is an abscess she will need surgical intervention, if only discitis, IV antibiotics. PLAN: Continue ampicillin, gentamicin at current dose. Gentamicin level peak was 4.7 and trough 0.9. She will probably will need rehabilitation and 6 weeks of IV antibiotic at [facility].
[2016-08-17] MEDS: AMPICILLIN SOD 2 GM in D5W MINI-BAG PLUS 100 ML IV SCH ×6 (02:45→21:11)
[2016-08-17] MEDS: GENTAMICIN 80 MG in APPROPRIATE DILUENT 1 EA IV SCH ×2 (05:46→17:59)
[2016-08-17] MEDS: ANEXSIA, NORCO 7.5MG/325MG TABLET(HYDROCODONE/APAP) PO SCH ×2 (05:47→21:12)
[2016-08-17 06:00] VITALS: BP 113/59
[2016-08-17 06:42] LABS: MEAN CORPUSCULAR HEMOGLOBIN 29.3 pg (27.0-33.0); MEAN CORPUSCULAR HGB CONC 32.2 g/dl (32.0-36.5); WHITE BLOOD COUNT 6.9 K/mm3 (4.0-10.0)
[2016-08-17 06:48] LABS: INR 2.14
[2016-08-17 06:58] LABS: ALBUMIN 1.8 GM/DL (3.2-5.2); ALBUMIN/GLOBULIN RATIO 0.42 (1.00-1.93); ALKALINE PHOSPHATASE 73 U/L (45-117); ALT/SGPT 25 U/L (12-78); ANION GAP 8 MEQ/L (8-16); AST/SGOT 16 U/L (15-37); BILIRUBIN,TOTAL 0.4 MG/DL (0.2-1.0); BLOOD UREA NITROGEN 13 MG/DL (7-18); CALCIUM LEVEL 8.7 MG/DL (8.8-10.2); CARBON DIOXIDE LEVEL 27 MEQ/L (21-32); CHLORIDE LEVEL 102 MEQ/L (98-107); CREATININE FOR GFR 0.66 MG/DL (0.55-1.02); GLOMERULAR FILTRATION RATE > 60.0 (>39); GLUCOSE, FASTING 151 MG/DL (83-110); POTASSIUM SERUM 3.8 MEQ/L (3.5-5.1); SODIUM LEVEL 137 MEQ/L (136-145); TOTAL PROTEIN 6.1 GM/DL (6.4-8.2)
[2016-08-17] MEDS: SPIRONOLACTONE 12.5MG PER 1/2 TABLET PO SCH (09:57)
[2016-08-17] MEDS: ASPIRIN 81 MG ENTERIC TAB PO SCH (09:58)
[2016-08-17] MEDS: PREGABALIN 100 MG CAP (LYRICA) PO SCH ×3 (09:58→21:12)
[2016-08-17] MEDS: BISACODYL 5 MG TAB PO SCH (09:58)
[2016-08-17] MEDS: PANTOPRAZOLE 40MG TAB (PROTONIX) PO SCH (09:58)
[2016-08-17] MEDS: LIDOCAINE 5% (LIDODERM) PATCH TD SCH ×2 (09:58→21:13)
[2016-08-17] MEDS: SENOKOT S TAB PO SCH ×2 (09:58→21:12)
[2016-08-17] MEDS: tiZANidine 4 MG TAB PO PRN (10:01)
[2016-08-17] MEDS: METOPROLOL SUCC (TopROL XL) 50MG **XL** TAB PO SCH (10:01)
[2016-08-17] MEDS: **NOTE PATIENT COMMENT** MISC XX SCH ×2 (10:05→21:00)
--- NOTE | 2016-08-17 11:01 | IPNPDOC ---
Text Note Date of Service The patient was seen on 08/17/16. NOTE Subjective: Patient is a 76 year old female with a PMHx of Chronic back pain, OA / Spinal stenosis, AV replacement w/ bioprosthetic valve, CAD s/p CABG (04/2016) , HTN, Hiatal hernia, DM2, Hx of DVT (on Coumadin) who presented to the ER with left hip pain and worsening of her lower back pain. She has been having difficulty with ambulation and was admitted to control her back pain. Patient was seen and examined at the bedside. She notes that she is still having pain with movement. She has refused physical therapy yesterday. I have discussed with her the importance of some ambulation in order for open MRI to be completed. Patient's son was present in the room. She is agreeable to more therapy; assistance from bed to wheelchair with an adjusted pain regimen. Objective: Vitals (See below) General: Lying in bed, no acute distress, comfortable, AAOx3 HEENT: NC, AT CVS: RRR, +S1S2 Lungs: Fair air entry b/l, -w/r/r Abdomen: Soft, ND, NT, +BSx4 Extremities: +PPx4, - Edema, - Calf tenderness Assessment and plan: 1. Bacteremia - 2/2 Enterococcus faecalis - possibly 2/2 prosthesis infection ( Bilateral hip replacement), possible diskitis - History of prior bacteremia (04/2016); was attributed to right wrist cellulitis - Blood cultures: Positive on 08/10 and 08/11; repeat cultures from 08/13 have been negative after 72 hours - s/p TTE: No visible vegetations were noted, history of aortic valve replacement (bioprosthetic - 03/2014) - s/p ANDRIY: Dr. Dominguez; no evidence of vegetations - Will get open MRI lumbar spine; currently is still against regular MRI with light sedation; advised that if open MRI is not completed by tomorrow because of pain, we will have to pursue closed MRI - c/w Ampicillin and Gentamycin (Day #6) - Dr. Mayer (Infectious disease) following 2. Intractable back pain - possibly 2/2 central canal stenosis, disc bulge, foraminal stenosis, possibly diskitis - Presented with back pain preventing her from ambulating - Physical reveals normal strength, restricted by pain; No saddle anesthesia / incontinence / sensory changes noted - CT lumbar spine: no acute deformities, chronic degenerative changes - Pain management consulted; will follow recommendation - Neurosurgical team consulted; require MRI lumbar spine - c/w [place] and Morphine PRN, c/w Lyrica - Will adjust dose of [place] today - Will try to continue with PT today with adjusted pain regimen 3. CAD s/p CABG / [place] - c/w ASA, Atorvastatin, Metoprolol 4. HTN - c/w Metoprolol, Spironolactone and Chlorthalidone 5. AVR, Bioprosthetic - INR of 2.07 - c/w ASA and Coumadin 6. Normocytic anemia - Hg stable 7. s/p Hypokalemia 8. GI prophylaxis - c/w Protonix 9. DVT prophylaxis - c/w full anticoagulation with Coumadin Disposition: - Will require MRI; will go for open MRI - ID for etiology of bacteremia - Will adjust pain therapy regimen - Awaiting PT / OT evaluation after new pain regimen VS,Fishbone, I+O VS, Fishbone, I+O Laboratory Tests 08/17/16 06:27 Red Blood Count 3.07 L, Mean Corpuscular Volume 91.0, Mean Corpuscular Hemoglobin 29.3, Mean Corpuscular Hemoglobin Concent 32.2, Red Cell Distribution Width 15.0 H, Calcium Level 8.7 L, Aspartate Amino Transf (AST/SGOT ) 16, Alanine Aminotransferase (ALT/SGPT) 25, Alkaline Phosphatase 73, Total Bilirubin 0.4, Total Protein 6.1 L, Albumin 1.8 L Vital Signs Date Time Temp Pulse Resp B/P (MAP) Pulse Ox O2 Delivery O2 Flow Rate FiO2 08/17/16 10:01 76 144/67 08/17/16 06:17 17 08/17/16 06:00 99.7 96 Room Air I&O- Last 24 Hours up to 6 AM 08/17/16 05:59 Intake Total 1540 ml Output Total 1550 ml Balance -10 ml PAVAN GASPAR MD August 17, 2016 11:01
[2016-08-17 14:00] VITALS: BP 160/72
[2016-08-17] MEDS ORDERED: ANEXSIA, NORCO 7.5MG/325MG TABLET(HYDROCODONE/APAP) PO SCH (14:00)
[2016-08-17] MEDS: WARFARIN SOD 3 MG TAB PO SCH (17:11)
--- NOTE | 2016-08-17 20:08 | IPN ---
DATE: 08/17/2016 Laureen is doing about the same. She is still complaining of severe low back pain. She is scheduled to have an open MRI tomorrow. She has had low grade fever up to 100.6 last night. Temperature currently 99.8, pulse 70, respirations 18, blood pressure 160/72, oxygen saturation 95% room air. Heart: Normal S1, S2 with a systolic ejection murmur 2/6 at the left upper sternal border. Lungs are clear. No wheezes, rales, or rhonchi. Abdomen is soft, nontender. Extremities: No edema. Positive straight leg raising bilaterally at 20 degrees. The patient cannot sit up to be examined. IMPRESSION: 1. Enterococcus faecalis bacteremia with severe low back pain concerning for discitis or epidural abscess with persistent fever. C-reactive protein (CRP) has improved from 13.8 to 9.9. Blood cultures repeat are negative after 24 hours of antibiotic. Patient is currently on ampicillin and gentamicin. Transesophageal echocardiogram (ANDRIY) was done and was negative. 2. Severe spinal stenosis. Followed up by neurosurgery. On Lyrica, Zanaflex and narcotics. PLAN: Open MRI tomorrow. Depending on results will decide on a course of antibiotic and whether she will need surgery. The patient will probably need a peripherally inserted central catheter (PICC) line for home IV antibiotics or alf antibiotics.
[2016-08-17] MEDS: MAGNESIUM OXIDE 400 MG TAB (MAG-OX) PO SCH (21:12)
[2016-08-17] MEDS: ATORVASTATIN 20 MG TAB PO SCH (21:12)
[2016-08-17 22:00] VITALS: BP 141/66
[2016-08-18] VITALS (7 sets, daily range): BP systolic 115–150; BP diastolic 57–74
[2016-08-18] MEDS: AMPICILLIN SOD 2 GM in D5W MINI-BAG PLUS 100 ML IV SCH ×6 (01:38→21:17)
[2016-08-18] MEDS: GENTAMICIN 80 MG in APPROPRIATE DILUENT 1 EA IV SCH ×2 (05:58→17:37)
[2016-08-18 06:46] LABS: ERYTHROCYTE SEDIMENTATION RATE 98 mm/hr (0-30)
[2016-08-18] MEDS: ANEXSIA, NORCO 7.5MG/325MG TABLET(HYDROCODONE/APAP) PO SCH ×3 (06:52→21:18)
[2016-08-18 08:14] LABS: BASO % 0.5 % (0.0-1.0); EOS % 0.1 % (0.0-3.0); LARGE UNSTAINED CELL # 0.2 K/mm3 (0.0-0.4); LARGE UNSTAINED CELL % 2.4 % (0.0-4.0); LYMPH # 2.1 K/mm3 (1.5-4.5); LYMPH % 27.5 % (24.0-44.0); MEAN CORPUSCULAR HEMOGLOBIN 28.9 pg (27.0-33.0); MEAN CORPUSCULAR VOLUME 90.1 fl (80.0-96.0); MONO # 0.4 K/mm3 (0.0-0.8); MONO % 5.6 % (0.0-5.0); NEUTROPHILS # 4.6 K/mm3 (1.8-7.7); PLATELET COUNT, AUTOMATED 330 k/mm3 (150-450); RED CELL DISTRIBUTION WIDTH 15.2 % (11.5-14.5); WHITE BLOOD COUNT 7.1 K/mm3 (4.0-10.0)
[2016-08-18 08:18] LABS: ALBUMIN/GLOBULIN RATIO 0.43 (1.00-1.93); ALKALINE PHOSPHATASE 82 U/L (45-117); ALT/SGPT 29 U/L (12-78); ANION GAP 11 MEQ/L (8-16); AST/SGOT 21 U/L (15-37); BILIRUBIN,TOTAL 0.5 MG/DL (0.2-1.0); BLOOD UREA NITROGEN 11 MG/DL (7-18); CALCIUM LEVEL 9.3 MG/DL (8.8-10.2); CARBON DIOXIDE LEVEL 28 MEQ/L (21-32); CHLORIDE LEVEL 101 MEQ/L (98-107); CREATININE FOR GFR 0.69 MG/DL (0.55-1.02); GLOMERULAR FILTRATION RATE > 60.0 (>39); GLUCOSE, FASTING 166 MG/DL (83-110); SODIUM LEVEL 140 MEQ/L (136-145); TOTAL PROTEIN 6.7 GM/DL (6.4-8.2)
[2016-08-18] MEDS: CHLORTHALIDONE 12.5MG PER 1/2 TABLET PO SCH (08:52)
[2016-08-18] MEDS: **NOTE PATIENT COMMENT** MISC XX SCH ×2 (09:00→21:00)
[2016-08-18] MEDS: LIDOCAINE 5% (LIDODERM) PATCH TD SCH ×2 (09:48→21:19)
[2016-08-18] MEDS: PREGABALIN 100 MG CAP (LYRICA) PO SCH ×3 (09:52→21:18)
[2016-08-18] MEDS: SPIRONOLACTONE 12.5MG PER 1/2 TABLET PO SCH (09:52)
[2016-08-18] MEDS: ASPIRIN 81 MG ENTERIC TAB PO SCH (09:52)
[2016-08-18] MEDS: METOPROLOL SUCC (TopROL XL) 50MG **XL** TAB PO SCH (09:52)
[2016-08-18] MEDS: PANTOPRAZOLE 40MG TAB (PROTONIX) PO SCH (09:53)
[2016-08-18] MEDS: SENOKOT S TAB PO SCH ×2 (09:53→21:17)
[2016-08-18] MEDS: BISACODYL 5 MG TAB PO SCH (09:53)
[2016-08-18] MEDS: tiZANidine 4 MG TAB PO PRN ×2 (10:08→21:18)
--- NOTE | 2016-08-18 11:22 | IPN ---
DATE: 08/18/2016 Laureen states that she woke up at 4 in the morning drenched and feeling very hot. She had a fever. Her temperature was 100.6. She still complains of significant back pain. States that she could not get up to use the commode or the chair. She is scheduled for MRI with sedation today. She has mild shortness of breath but no chest pain. No nausea, vomiting or diarrhea. Temperature is 100.6, pulse 88, respirations 20, blood pressure 131/71, O2 sat 95% on room air. Heart: Normal S1, S2 with a soft ejection murmur best heard at the right upper sternal border. Lungs are clear. No wheezes or rhonchi. Abdomen is obese, soft, nontender. Extremities: No edema. Knees are both swollen from osteoarthritic changes but no effusion. Straight-leg raising has improved. She is able to tolerate passive hip abduction to about 30 degrees. Her major pain is mostly in the knees over the back posterior thigh. IMPRESSION: 1. Enterococcus faecalis bacteremia, the source is still unclear. Transesophageal echocardiogram was negative. Severe low back pain concerning for discitis or epidural abscess. The patient has persistent fever in spite of ampicillin and gentamicin. 2. Severe spinal stenosis and degenerative disc disease with severe back pain. 3. Bioprosthetic aortic valve with no evidence of endocarditis and well-functioning valve. PLAN: MRI under sedation today to rule out discitis or epidural abscess. LABORATORY DATA: White count is 7.1, hemoglobin 0.8, hematocrit 30.7, platelets 330. ESR has improved to 98. Sodium 140, potassium 4, chloride 101, bicarb 28, BUN 11, creatinine 0.7, glucose 166 and calcium 9.3, AST 21, ALT 29, CRP 11.6. Gentamicin peak is 3.5 and trough was 1.1. Currently day #6 of IV ampicillin and gentamicin with appropriate peaks and troughs for gentamicin.
--- NOTE | 2016-08-18 13:03 | IPNPDOC ---
Text Note Date of Service The patient was seen on 08/18/16. NOTE Subjective: Patient is a 76 year old female with a PMHx of Chronic back pain, OA / Spinal stenosis, AV replacement w/ bioprosthetic valve, CAD s/p CABG (04/2016) , HTN, Hiatal hernia, DM2, Hx of DVT (on Coumadin) who presented to the ER with left hip pain and worsening of her lower back pain. She has been having difficulty with ambulation and was admitted to control her back pain. Patient was seen and examined at the bedside. She notes no new changes. I have noted to her that she will be going for an regular MRI with anesthesia. Objective: Vitals (See below) General: Lying in bed, no acute distress, comfortable, AAOx3 HEENT: NC, AT CVS: RRR, +S1S2 Lungs: Fair air entry b/l, -w/r/r Abdomen: Soft, ND, NT, +BSx4 Extremities: +PPx4, - Edema, - Calf tenderness Assessment and plan: 1. Bacteremia - 2/2 Enterococcus faecalis - possibly 2/2 prosthesis infection ( Bilateral hip replacement), possible diskitis - History of prior bacteremia (04/2016); was attributed to right wrist cellulitis - Blood cultures: Positive on 08/10 and 08/11; repeat cultures from 08/13 have been negative after 72 hours - s/p TTE: No visible vegetations were noted, history of aortic valve replacement (bioprosthetic - 03/2014) - s/p ANDRIY: Dr. Dominguez; no evidence of vegetations - Will go for MRI with sedation today; anesthesia and radiology on board - c/w Ampicillin and Gentamycin (Day #7) - Dr. Mayer (Infectious disease) following 2. Intractable back pain - possibly 2/2 central canal stenosis, disc bulge, foraminal stenosis, possibly diskitis - Presented with back pain preventing her from ambulating - Physical reveals normal strength, restricted by pain; No saddle anesthesia / incontinence / sensory changes noted - CT lumbar spine: no acute deformities, chronic degenerative changes - Pain management consulted; will follow recommendation - Neurosurgical team consulted; require MRI lumbar spine - c/w [place] and Morphine PRN, c/w Lyrica - Hold PT until pain is more tolerable 3. CAD s/p CABG / [place] - c/w ASA, Atorvastatin, Metoprolol 4. HTN - c/w Metoprolol, Spironolactone and Chlorthalidone 5. AVR, Bioprosthetic - INR pending - c/w ASA and Coumadin 6. Normocytic anemia - Hg stable 7. s/p Hypokalemia 8. GI prophylaxis - c/w Protonix 9. DVT prophylaxis - c/w full anticoagulation with Coumadin Disposition: - Awaiting MRI of lumbar / sacrum today VS,Mary, I+O VS, Mary, I+O Laboratory Tests 08/18/16 06:00 Red Blood Count 3.40 L, Mean Corpuscular Volume 90.1, Mean Corpuscular Hemoglobin 28.9, Mean Corpuscular Hemoglobin Concent 32.0, Red Cell Distribution Width 15.2 H, Neutrophils (%) (Auto) 64.0, Lymphocytes (%) (Auto) 27.5, Monocytes (%) (Auto) 5.6 H, Eosinophils (%) (Auto) 0.1, Basophils (%) ( Auto) 0.5, Neutrophils # (Auto) 4.6, Lymphocytes # (Auto) 2.1, Monocytes # (Auto ) 0.4, Eosinophils # (Auto) 0.0, Basophils # (Auto) 0.0, Calcium Level 9.3, Aspartate Amino Transf (AST/SGOT) 21, Alanine Aminotransferase (ALT/SGPT) 29, Alkaline Phosphatase 82, Total Bilirubin 0.5, Total Protein 6.7, Albumin 2.0 L Vital Signs Date Time Temp Pulse Resp B/P (MAP) Pulse Ox O2 Delivery O2 Flow Rate FiO2 08/18/16 09:52 88 131/71 08/18/16 08:53 18 08/18/16 06:00 99.2 95 Room Air I&O- Last 24 Hours up to 6 AM 08/18/16 05:59 Intake Total 1380 ml Output Total 1500 ml Balance -120 ml PAVAN GASPAR MD August 18, 2016 13:03
[2016-08-18 13:20] LABS: INR 2.3
[2016-08-18] MEDS ORDERED: MIDAZOLAM INJ 2 MG/2 ML VIAL (J2250) As Ordered ONE (14:52)
[2016-08-18] MEDS ORDERED: LR 1,000 ML IV SCH (16:30)
[2016-08-18] MEDS ORDERED: ONDANSETRON 4MG/2ML VIAL (J2405) IV PRN (16:30)
--- NOTE | 2016-08-18 16:46 | REP ---
MR LUMBAR SPINE WITHOUT AND WITH CONTRAST: HISTORY: Rule out discitis. COMPARISON: CT 08/10/2016. The examination is limited. Decreased signal intensity on T2-weighted images is present in the lumbar intervertebral discs. The discs are decreased in height. These findings are consistent disc degeneration. A diffuse disc bulge is present at the L1-2 level. There hypertrophy of the ligamenta flava and posterior articulating facets. These findings produce minimal canal stenosis. The L1 nerves exit the neural foramina without compression. A diffuse disc bulge with associated osteophyte formation is present the L2-3 level. There is hypertrophy of the ligamenta flava and posterior articulating facets. These findings produce moderate central canal stenosis. The L2 nerves exit the neural foramina without compression. A diffuse disc bulge with associated osteophyte formation is present the L3-4 level. There is hypertrophy of the ligamenta flava and posterior articulating facets. These findings produce moderate central canal stenosis. The L3 nerves exit the neural foramina without compression. A diffuse disc bulge is present at the L4-5 level. There is hypertrophy of the ligamenta flava and posterior articulating facets. There are 4 mm of grade 1 spondylolisthesis of L4 on 5. These findings produce severe central canal stenosis. There is compression of the L4 nerves in the neural foramina. A diffuse disc bulge is present at the L5-S1 level. There is minimal compression of the thecal sac. There is hypertrophy of the posterior articulating facets. There is compression of the L5 nerves and the neural foramina. The conus medullaris is normal in appearance terminating at the level of the T12-L1 intervertebral discs . A hemangioma is present in the L3 vertebral body. Normal signal intensity is present in the remaining lumbar vertebral bodies. IMPRESSION: 1. Minimal central canal stenosis at the L1-2 level secondary to disc bulge, ligamentous, and facet hypertrophy. 2. Moderate central canal stenosis at the L2-3 and L3-4 levels secondary to disc bulge, ligamentous and facet hypertrophy and osteophyte formation. 3. Severe central canal stenosis at the L4-5 level secondary to disc bulge, ligamentous and facet hypertrophy and grade 1 spondylolisthesis. There is compression of the L4 nerves in the neural foramina. 4. Diffuse disc bulge at the L5-S1 level with minimal thecal sac compression. There is compression of the L5 nerves in the neural foramina. Signed by Ambrose Mercedes MD 08/18/2016 04:59 P
[2016-08-18] MEDS: WARFARIN SOD 3 MG TAB PO SCH (17:36)
[2016-08-18] MEDS: ATORVASTATIN 20 MG TAB PO SCH (21:17)
[2016-08-18] MEDS: MAGNESIUM OXIDE 400 MG TAB (MAG-OX) PO SCH (21:18)
[2016-08-19 02:00] VITALS: BP 143/67
[2016-08-19] MEDS: AMPICILLIN SOD 2 GM in D5W MINI-BAG PLUS 100 ML IV SCH ×6 (02:17→21:52)
[2016-08-19] MEDS: GENTAMICIN 80 MG in APPROPRIATE DILUENT 1 EA IV SCH ×2 (05:53→17:28)
[2016-08-19 05:59] LABS: BASO % 0.3 % (0.0-1.0); EOS % 0.6 % (0.0-3.0); LARGE UNSTAINED CELL # 0.2 K/mm3 (0.0-0.4); LARGE UNSTAINED CELL % 2.7 % (0.0-4.0); LYMPH # 1.9 K/mm3 (1.5-4.5); LYMPH % 26.3 % (24.0-44.0); MEAN CORPUSCULAR HEMOGLOBIN 28.6 pg (27.0-33.0); MEAN CORPUSCULAR HGB CONC 31.4 g/dl (32.0-36.5); MEAN CORPUSCULAR VOLUME 91.1 fl (80.0-96.0); MONO # 0.4 K/mm3 (0.0-0.8); MONO % 6.1 % (0.0-5.0); NEUTROPHILS # 4.6 K/mm3 (1.8-7.7); PLATELET COUNT, AUTOMATED 344 k/mm3 (150-450); RED CELL DISTRIBUTION WIDTH 15.1 % (11.5-14.5); WHITE BLOOD COUNT 7.2 K/mm3 (4.0-10.0)
[2016-08-19 06:00] VITALS: BP 129/60
[2016-08-19 06:06] LABS: INR 2.67
[2016-08-19] MEDS: ANEXSIA, NORCO 7.5MG/325MG TABLET(HYDROCODONE/APAP) PO SCH ×3 (06:17→21:52)
[2016-08-19 06:23] LABS: ALBUMIN/GLOBULIN RATIO 0.43 (1.00-1.93); ALKALINE PHOSPHATASE 89 U/L (45-117); ALT/SGPT 26 U/L (12-78); ANION GAP 9 MEQ/L (8-16); AST/SGOT 14 U/L (15-37); BILIRUBIN,TOTAL 0.5 MG/DL (0.2-1.0); BLOOD UREA NITROGEN 14 MG/DL (7-18); CALCIUM LEVEL 9.1 MG/DL (8.8-10.2); CARBON DIOXIDE LEVEL 28 MEQ/L (21-32); CHLORIDE LEVEL 100 MEQ/L (98-107); CREATININE FOR GFR 0.74 MG/DL (0.55-1.02); GLOMERULAR FILTRATION RATE > 60.0 (>39); GLUCOSE, FASTING 214 MG/DL (83-110); MAGNESIUM LEVEL 1.7 MG/DL (1.8-2.4); POTASSIUM SERUM 3.9 MEQ/L (3.5-5.1); SODIUM LEVEL 137 MEQ/L (136-145); TOTAL PROTEIN 6.6 GM/DL (6.4-8.2)
[2016-08-19 06:51] LABS: ERYTHROCYTE SEDIMENTATION RATE > 140 mm/hr (0-30)
[2016-08-19] MEDS: tiZANidine 4 MG TAB PO PRN ×2 (08:25→20:49)
[2016-08-19] MEDS: SPIRONOLACTONE 12.5MG PER 1/2 TABLET PO SCH (08:25)
[2016-08-19] MEDS: SENOKOT S TAB PO SCH ×2 (08:26→20:49)
[2016-08-19] MEDS: ASPIRIN 81 MG ENTERIC TAB PO SCH (08:26)
[2016-08-19] MEDS: BISACODYL 5 MG TAB PO SCH (08:26)
[2016-08-19] MEDS: PANTOPRAZOLE 40MG TAB (PROTONIX) PO SCH (08:26)
[2016-08-19] MEDS: LIDOCAINE 5% (LIDODERM) PATCH TD SCH ×3 (08:26→21:05)
[2016-08-19] MEDS: PREGABALIN 100 MG CAP (LYRICA) PO SCH ×3 (08:26→20:49)
[2016-08-19] MEDS: METOPROLOL SUCC (TopROL XL) 50MG **XL** TAB PO SCH (08:26)
[2016-08-19] MEDS: **NOTE PATIENT COMMENT** MISC XX SCH ×2 (08:27→20:50)
[2016-08-19 10:00] VITALS: BP 106/58
--- NOTE | 2016-08-19 12:28 | IPNPDOC ---
Text Note Date of Service The patient was seen on 08/19/16. NOTE Subjective: Patient is a 76 year old female with a PMHx of Chronic back pain, OA / Spinal stenosis, AV replacement w/ bioprosthetic valve, CAD s/p CABG (04/2016) , HTN, Hiatal hernia, DM2, Hx of DVT (on Coumadin) who presented to the ER with left hip pain and worsening of her lower back pain. She has been having difficulty with ambulation and was admitted to control her back pain. Patient was seen and examined at the bedside. Patient has received her MRI yesterday without event. She still notes persistent back pain. Objective: Vitals (See below) General: Lying in bed, no acute distress, comfortable, AAOx3 HEENT: NC, AT CVS: RRR, +S1S2 Lungs: Fair air entry b/l, -w/r/r Abdomen: Soft, ND, NT, +BSx4 Extremities: +PPx4, - Edema, - Calf tenderness Assessment and plan: 1. Bacteremia - 2/2 Enterococcus faecalis - no clear etiology of source - History of prior bacteremia (04/2016); was attributed to right wrist cellulitis - Blood cultures: Positive on 08/10 and 08/11; repeat cultures from 08/13 have been negative after 72 hours - s/p TTE: No visible vegetations were noted, history of aortic valve replacement (bioprosthetic - 03/2014) - s/p ANDRIY: Dr. Dominguez; no evidence of vegetations - MRI negative for diskitis or abscess - c/w Ampicillin and Gentamycin (Day #8) - Dr. Mayer (Infectious disease) following 2. Intractable back pain - possibly 2/2 central canal stenosis, disc bulge, foraminal stenosis, possibly diskitis - Presented with back pain preventing her from ambulating - Physical reveals normal strength, restricted by pain; No saddle anesthesia / incontinence / sensory changes noted - CT lumbar spine: no acute deformities, chronic degenerative changes - Pain management consulted; will follow recommendation - Neurosurgery on consult - discussed case with Dr. Coleman; will determine if any additional intervention is required - c/w [place] and Morphine PRN, c/w Lyrica - Will resume physical therapy today 3. CAD s/p CABG / [place] - c/w ASA, Atorvastatin, Metoprolol 4. HTN - c/w Metoprolol, Spironolactone and Chlorthalidone 5. AVR, Bioprosthetic - INR pending - c/w ASA and Coumadin 6. Normocytic anemia - Hg stable 7. s/p Hypokalemia 8. GI prophylaxis - c/w Protonix 9. DVT prophylaxis - c/w full anticoagulation with Coumadin Disposition: - c/w Physical therapy - May consider reconsulting pain management if pain is intolerable VS,Fishbone, I+O VS, Fishbone, I+O Laboratory Tests 08/19/16 05:51 Red Blood Count 3.43 L, Mean Corpuscular Volume 91.1, Mean Corpuscular Hemoglobin 28.6, Mean Corpuscular Hemoglobin Concent 31.4 L, Red Cell Distribution Width 15.1 H, Neutrophils (%) (Auto) 64.0, Lymphocytes (%) (Auto) 26.3, Monocytes (%) (Auto) 6.1 H, Eosinophils (%) (Auto) 0.6, Basophils (%) ( Auto) 0.3, Neutrophils # (Auto) 4.6, Lymphocytes # (Auto) 1.9, Monocytes # (Auto ) 0.4, Eosinophils # (Auto) 0.0, Basophils # (Auto) 0.0, Calcium Level 9.1, Aspartate Amino Transf (AST/SGOT) 14 L, Alanine Aminotransferase (ALT/SGPT) 26, Alkaline Phosphatase 89, Total Bilirubin 0.5, Total Protein 6.6, Albumin 2.0 L Vital Signs Date Time Temp Pulse Resp B/P (MAP) Pulse Ox O2 Delivery O2 Flow Rate FiO2 08/19/16 10:00 98.4 66 20 106/58 (74) 90 Room Air I&O- Last 24 Hours up to 6 AM 08/19/16 05:59 Intake Total 1115 ml Output Total 1400 ml Balance -285 ml PAVAN GASPAR MD August 19, 2016 12:28
[2016-08-19] MEDS: WARFARIN SOD 3 MG TAB PO SCH (17:27)
[2016-08-19] MEDS: MAGNESIUM OXIDE 400 MG TAB (MAG-OX) PO SCH (20:49)
[2016-08-19] MEDS: ATORVASTATIN 20 MG TAB PO SCH (20:49)
[2016-08-19 22:00] VITALS: BP 135/63
[2016-08-20] MEDS: AMPICILLIN SOD 2 GM in D5W MINI-BAG PLUS 100 ML IV SCH ×6 (01:34→21:30)
[2016-08-20] MEDS: GENTAMICIN 80 MG in APPROPRIATE DILUENT 1 EA IV SCH ×2 (05:52→17:37)
[2016-08-20 06:00] VITALS: BP 125/59
[2016-08-20 06:30] LABS: BASO % 0.2 % (0.0-1.0); EOS % 0.1 % (0.0-3.0); LARGE UNSTAINED CELL # 0.2 K/mm3 (0.0-0.4); LARGE UNSTAINED CELL % 2.5 % (0.0-4.0); LYMPH # 1.7 K/mm3 (1.5-4.5); LYMPH % 22.9 % (24.0-44.0); MEAN CORPUSCULAR HEMOGLOBIN 28.5 pg (27.0-33.0); MEAN CORPUSCULAR HGB CONC 31.4 g/dl (32.0-36.5); MEAN CORPUSCULAR VOLUME 90.8 fl (80.0-96.0); MONO # 0.4 K/mm3 (0.0-0.8); MONO % 4.7 % (0.0-5.0); NEUTROPHILS # 5.3 K/mm3 (1.8-7.7); NEUTROPHILS % 69.6 % (36.0-66.0); PLATELET COUNT, AUTOMATED 352 k/mm3 (150-450); WHITE BLOOD COUNT 7.6 K/mm3 (4.0-10.0)
[2016-08-20 06:34] LABS: ALBUMIN/GLOBULIN RATIO 0.41 (1.00-1.93); ALKALINE PHOSPHATASE 88 U/L (45-117); ALT/SGPT 27 U/L (12-78); ANION GAP 7 MEQ/L (8-16); AST/SGOT 16 U/L (15-37); BILIRUBIN,TOTAL 0.4 MG/DL (0.2-1.0); BLOOD UREA NITROGEN 11 MG/DL (7-18); CALCIUM LEVEL 9.5 MG/DL (8.8-10.2); CARBON DIOXIDE LEVEL 29 MEQ/L (21-32); CHLORIDE LEVEL 102 MEQ/L (98-107); CREATININE FOR GFR 0.63 MG/DL (0.55-1.02); GLOMERULAR FILTRATION RATE > 60.0 (>39); GLUCOSE, FASTING 165 MG/DL (83-110); MAGNESIUM LEVEL 1.6 MG/DL (1.8-2.4); POTASSIUM SERUM 3.4 MEQ/L (3.5-5.1); SODIUM LEVEL 138 MEQ/L (136-145); TOTAL PROTEIN 6.9 GM/DL (6.4-8.2)
[2016-08-20] MEDS: ANEXSIA, NORCO 7.5MG/325MG TABLET(HYDROCODONE/APAP) PO SCH ×3 (06:35→21:30)
[2016-08-20 06:37] LABS: INR 2.6
[2016-08-20] MEDS: LIDOCAINE 5% (LIDODERM) PATCH TD SCH ×2 (09:00→21:29)
[2016-08-20] MEDS: **NOTE PATIENT COMMENT** MISC XX SCH ×2 (09:00→21:00)
[2016-08-20] MEDS: PREGABALIN 100 MG CAP (LYRICA) PO SCH ×3 (10:10→21:30)
[2016-08-20] MEDS: METOPROLOL SUCC (TopROL XL) 50MG **XL** TAB PO SCH (10:10)
[2016-08-20] MEDS: SPIRONOLACTONE 12.5MG PER 1/2 TABLET PO SCH (10:10)
[2016-08-20] MEDS: ASPIRIN 81 MG ENTERIC TAB PO SCH (10:10)
[2016-08-20] MEDS: SENOKOT S TAB PO SCH ×2 (10:10→21:29)
[2016-08-20] MEDS: PANTOPRAZOLE 40MG TAB (PROTONIX) PO SCH (10:11)
[2016-08-20] MEDS: BISACODYL 5 MG TAB PO SCH (10:11)
[2016-08-20] MEDS: tiZANidine 4 MG TAB PO PRN ×2 (10:34→23:07)
--- NOTE | 2016-08-20 10:56 | IPNPDOC ---
Text Note Date of Service The patient was seen on 08/20/16. NOTE Subjective: Patient is a 76 year old female with a PMHx of Chronic back pain, OA / Spinal stenosis, AV replacement w/ bioprosthetic valve, CAD s/p CABG (04/2016) , HTN, Hiatal hernia, DM2, Hx of DVT (on Coumadin) who presented to the ER with left hip pain and worsening of her lower back pain. She has been having difficulty with ambulation and was admitted to control her back pain. Patient was seen and examined at the bedside. Patient is still complaining of pain. She is not showing much enthusiasm toward physical therapy. I have advised her that it will be necessary at this point. Objective: Vitals (See below) General: Lying in bed, no acute distress, comfortable, AAOx3 HEENT: NC, AT CVS: RRR, +S1S2 Lungs: Fair air entry b/l, -w/r/r Abdomen: Soft, ND, NT, +BSx4 Extremities: +PPx4, - Edema, - Calf tenderness Assessment and plan: 1. Bacteremia - 2/2 Enterococcus faecalis - no clear etiology of source - History of prior bacteremia (04/2016); was attributed to right wrist cellulitis - Blood cultures: Positive on 08/10 and 08/11; repeat cultures from 08/13 have been negative after 5 dyas - s/p TTE: No visible vegetations were noted, history of aortic valve replacement (bioprosthetic - 03/2014) - s/p ANDRIY: Dr. Dominguez; no evidence of vegetations - MRI negative for diskitis or abscess - c/w Ampicillin and Gentamycin (Day #9) - Dr. Mayer (Infectious disease) following 2. Intractable back pain - possibly 2/2 central canal stenosis, disc bulge, foraminal stenosis and nerve root compression - Presented with back pain preventing her from ambulating - Physical reveals normal strength, restricted by pain; No saddle anesthesia / incontinence / sensory changes noted - CT lumbar spine: no acute deformities, chronic degenerative changes - Pain management consulted; will follow recommendation - Neurosurgery on consult - discussed case with Dr. Coleman; currently can continue with physical therapy - no planned intervention at this time - Awaiting Dr. Sanchez - c/w [place] and Morphine PRN, c/w Lyrica - c/w physical therapy today 3. CAD s/p CABG / OK - c/w ASA, Atorvastatin, Metoprolol 4. HTN - c/w Metoprolol, Spironolactone and Chlorthalidone 5. AVR, Bioprosthetic - INR pending - c/w ASA and Coumadin 6. Normocytic anemia - Hg stable 7. s/p Hypokalemia 8. GI prophylaxis - c/w Protonix 9. DVT prophylaxis - c/w full anticoagulation with Coumadin Disposition: - Did not receive physical therapy yesterday; will continue today - May consider reconsulting pain management if pain is intolerable after / during PT VS,Fishbone, I+O VS, Fishbone, I+O Laboratory Tests 08/20/16 05:57 Red Blood Count 3.52 L, Mean Corpuscular Volume 90.8, Mean Corpuscular Hemoglobin 28.5, Mean Corpuscular Hemoglobin Concent 31.4 L, Red Cell Distribution Width 15.0 H, Neutrophils (%) (Auto) 69.6 H, Lymphocytes (%) (Auto ) 22.9 L, Monocytes (%) (Auto) 4.7, Eosinophils (%) (Auto) 0.1, Basophils (%) ( Auto) 0.2, Neutrophils # (Auto) 5.3, Lymphocytes # (Auto) 1.7, Monocytes # (Auto ) 0.4, Eosinophils # (Auto) 0.0, Basophils # (Auto) 0.0, Calcium Level 9.5, Aspartate Amino Transf (AST/SGOT) 16, Alanine Aminotransferase (ALT/SGPT) 27, Alkaline Phosphatase 88, Total Bilirubin 0.4, Total Protein 6.9, Albumin 2.0 L Vital Signs Date Time Temp Pulse Resp B/P (MAP) Pulse Ox O2 Delivery O2 Flow Rate FiO2 08/20/16 07:05 18 08/20/16 06:00 98.2 88 125/59 (81) 96 Room Air I&O- Last 24 Hours up to 6 AM 08/20/16 05:59 Intake Total 1330 ml Output Total 1150 ml Balance 180 ml PAVAN GASPAR MD August 20, 2016 10:56
[2016-08-20 14:00] VITALS: BP 134/67
[2016-08-20] MEDS ORDERED: POTASSIUM CHLORIDE 10 MEQ SR TABLET PO ONE (15:00)
[2016-08-20] MEDS: WARFARIN SOD 3 MG TAB PO SCH (17:37)
[2016-08-20] MEDS: MAGNESIUM OXIDE 400 MG TAB (MAG-OX) PO SCH (21:29)
[2016-08-20] MEDS: ATORVASTATIN 20 MG TAB PO SCH (21:30)
[2016-08-20 22:00] VITALS: BP 116/54
[2016-08-21] MEDS: AMPICILLIN SOD 2 GM in D5W MINI-BAG PLUS 100 ML IV SCH ×6 (02:23→21:37)
[2016-08-21 05:34] LABS: BASO % 0.3 % (0.0-1.0); EOS % 0.5 % (0.0-3.0); LARGE UNSTAINED CELL # 0.2 K/mm3 (0.0-0.4); LYMPH # 1.6 K/mm3 (1.5-4.5); MEAN CORPUSCULAR HEMOGLOBIN 29.2 pg (27.0-33.0); MEAN CORPUSCULAR HGB CONC 32.4 g/dl (32.0-36.5); MEAN CORPUSCULAR VOLUME 90.1 fl (80.0-96.0); MONO # 0.3 K/mm3 (0.0-0.8); MONO % 5.7 % (0.0-5.0); NEUTROPHILS # 3.3 K/mm3 (1.8-7.7); NEUTROPHILS % 60.4 % (36.0-66.0); PLATELET COUNT, AUTOMATED 315 k/mm3 (150-450); RED CELL DISTRIBUTION WIDTH 14.9 % (11.5-14.5); WHITE BLOOD COUNT 5.4 K/mm3 (4.0-10.0)
[2016-08-21 05:40] LABS: INR 3.17
[2016-08-21 06:00] VITALS: BP 104/51
[2016-08-21] MEDS: GENTAMICIN 80 MG in APPROPRIATE DILUENT 1 EA IV SCH ×3 (06:00→18:25)
[2016-08-21] MEDS: ANEXSIA, NORCO 7.5MG/325MG TABLET(HYDROCODONE/APAP) PO SCH ×3 (06:01→21:37)
[2016-08-21 06:04] LABS: ALBUMIN 1.8 GM/DL (3.2-5.2); ALKALINE PHOSPHATASE 82 U/L (45-117); ALT/SGPT 24 U/L (12-78); ANION GAP 10 MEQ/L (8-16); AST/SGOT 16 U/L (15-37); BILIRUBIN,TOTAL 0.3 MG/DL (0.2-1.0); BLOOD UREA NITROGEN 11 MG/DL (7-18); CARBON DIOXIDE LEVEL 27 MEQ/L (21-32); CHLORIDE LEVEL 102 MEQ/L (98-107); GENTAMICIN LEVEL TROUGH 0.8 MCG/ML (0.0-2.0); GLOMERULAR FILTRATION RATE > 60.0 (>39); GLUCOSE, FASTING 178 MG/DL (83-110); MAGNESIUM LEVEL 1.5 MG/DL (1.8-2.4); POTASSIUM SERUM 3.4 MEQ/L (3.5-5.1); SODIUM LEVEL 139 MEQ/L (136-145); TOTAL PROTEIN 6.3 GM/DL (6.4-8.2)
[2016-08-21] MEDS ORDERED: POTASSIUM CHLORIDE 10 MEQ SR TABLET PO ONE (07:30)
[2016-08-21] MEDS ORDERED: MAG SULF 1GM/100ML (MAG RUN) 1 GM in APPROPRIATE DILUENT 1 EA IV ONE (07:30)
[2016-08-21] MEDS: METOPROLOL SUCC (TopROL XL) 50MG **XL** TAB PO SCH (08:37)
[2016-08-21] MEDS: PANTOPRAZOLE 40MG TAB (PROTONIX) PO SCH (08:55)
[2016-08-21] MEDS: SENOKOT S TAB PO SCH ×2 (08:55→21:37)
[2016-08-21] MEDS: ASPIRIN 81 MG ENTERIC TAB PO SCH (08:55)
[2016-08-21] MEDS: BISACODYL 5 MG TAB PO SCH (08:55)
[2016-08-21] MEDS: SPIRONOLACTONE 12.5MG PER 1/2 TABLET PO SCH (08:56)
[2016-08-21] MEDS: CHLORTHALIDONE 12.5MG PER 1/2 TABLET PO SCH (08:56)
[2016-08-21] MEDS: PREGABALIN 100 MG CAP (LYRICA) PO SCH ×3 (08:56→21:37)
[2016-08-21] MEDS: LIDOCAINE 5% (LIDODERM) PATCH TD SCH ×2 (09:00→21:00)
[2016-08-21] MEDS: **NOTE PATIENT COMMENT** MISC XX SCH ×2 (09:01→21:00)
--- NOTE | 2016-08-21 11:00 | IPNPDOC ---
Text Note Date of Service The patient was seen on 08/21/16. NOTE Subjective: Patient is a 76 year old female with a PMHx of Chronic back pain, OA / Spinal stenosis, AV replacement w/ bioprosthetic valve, CAD s/p CABG (04/2016) , HTN, Hiatal hernia, DM2, Hx of DVT (on Coumadin) who presented to the ER with left hip pain and worsening of her lower back pain. She has been having difficulty with ambulation and was admitted to control her back pain. Patient was seen and examined at the bedside. Currently she notes that she had a poor sleep, had complaints about the nurse taking care of her, reports that her back and knees are still in pain when she tries to move. Is continuing to wait for physical therapy Objective: Vitals (See below) General: Lying in bed, no acute distress, comfortable, AAOx3 HEENT: NC, AT CVS: RRR, +S1S2 Lungs: Fair air entry b/l, -w/r/r Abdomen: Soft, ND, NT, +BSx4 Extremities: +PPx4, - Edema, - Calf tenderness Assessment and plan: 1. s/p bacteremia - 2/2 Enterococcus faecalis - no clear etiology of source - History of prior bacteremia (04/2016); was attributed to right wrist cellulitis - Blood cultures: Positive on 08/10 and 08/11; repeat cultures from 08/13 have been negative after 5 dyas - s/p TTE: No visible vegetations were noted, history of aortic valve replacement (bioprosthetic - 03/2014) - s/p ANDRIY: Dr. Dominguez; no evidence of vegetations - MRI negative for diskitis or abscess - Possible evaluation of knee with MRI for source? - c/w Ampicillin and Gentamycin (Day #10) - Dr. Mayer (Infectious disease) following 2. Intractable back pain - possibly 2/2 central canal stenosis, disc bulge, foraminal stenosis and nerve root compression - Presented with back pain preventing her from ambulating - Physical reveals normal strength, restricted by pain; No saddle anesthesia / incontinence / sensory changes noted - CT lumbar spine: no acute deformities, chronic degenerative changes - Pain management consulted; will follow recommendation - Neurosurgery on consult - discussed case with Dr. Coleman; currently can continue with physical therapy - no planned intervention at this time - Awaiting Dr. Sanchez (Will return tomorrow) - c/w [place] and Morphine PRN, c/w Lyrica - c/w physical therapy to re-evaluate 3. CAD s/p CABG / [place] - c/w ASA, Atorvastatin, Metoprolol 4. HTN - c/w Metoprolol, Spironolactone and Chlorthalidone 5. AVR, Bioprosthetic - INR of 3.17 - Hold Coumadin tonight - c/w ASA 6. Normocytic anemia - Hg stable 7. Hypokalemia - will supplement 8. Hypomagnesemia - will supplement 9. GI prophylaxis - c/w Protonix 10. DVT prophylaxis - On full anticoagulation with Coumadin Disposition: - Awaiting additional physical therapy; will determine pain regimen based on tolerance VS,Fishbone, I+O VS, Fishbone, I+O Laboratory Tests 08/21/16 05:23 Red Blood Count 3.14 L, Mean Corpuscular Volume 90.1, Mean Corpuscular Hemoglobin 29.2, Mean Corpuscular Hemoglobin Concent 32.4, Red Cell Distribution Width 14.9 H, Neutrophils (%) (Auto) 60.4, Lymphocytes (%) (Auto) 30.0, Monocytes (%) (Auto) 5.7 H, Eosinophils (%) (Auto) 0.5, Basophils (%) ( Auto) 0.3, Neutrophils # (Auto) 3.3, Lymphocytes # (Auto) 1.6, Monocytes # (Auto ) 0.3, Eosinophils # (Auto) 0.0, Basophils # (Auto) 0.0, Calcium Level 9.0, Aspartate Amino Transf (AST/SGOT) 16, Alanine Aminotransferase (ALT/SGPT) 24, Alkaline Phosphatase 82, Total Bilirubin 0.3, Total Protein 6.3 L, Albumin 1.8 L Vital Signs Date Time Temp Pulse Resp B/P (MAP) Pulse Ox O2 Delivery O2 Flow Rate FiO2 08/21/16 08:37 66 104/51 08/21/16 07:01 16 08/21/16 06:00 97.8 96 Room Air I&O- Last 24 Hours up to 6 AM 08/21/16 06:00 Intake Total 2080 ml Output Total 1900 ml Balance 180 ml PAVAN GASPAR MD August 21, 2016 11:00
[2016-08-21 14:00] VITALS: BP 130/60
[2016-08-21] MEDS: ATORVASTATIN 20 MG TAB PO SCH (21:35)
[2016-08-21] MEDS: MAGNESIUM OXIDE 400 MG TAB (MAG-OX) PO SCH (21:37)
[2016-08-21 22:00] VITALS: BP 150/71
[2016-08-22] MEDS: AMPICILLIN SOD 2 GM in D5W MINI-BAG PLUS 100 ML IV SCH ×6 (01:35→21:53)
[2016-08-22] MEDS: ANEXSIA, NORCO 7.5MG/325MG TABLET(HYDROCODONE/APAP) PO SCH ×3 (05:24→21:52)
[2016-08-22 06:00] VITALS: BP 119/56
[2016-08-22] MEDS: GENTAMICIN 80 MG in APPROPRIATE DILUENT 1 EA IV SCH ×2 (06:01→18:01)
[2016-08-22 06:17] LABS: BASO % 0.2 % (0.0-1.0); EOS % 0.1 % (0.0-3.0); LARGE UNSTAINED CELL # 0.1 K/mm3 (0.0-0.4); LARGE UNSTAINED CELL % 2.3 % (0.0-4.0); LYMPH # 1.9 K/mm3 (1.5-4.5); LYMPH % 29.4 % (24.0-44.0); MEAN CORPUSCULAR HGB CONC 32.1 g/dl (32.0-36.5); MEAN CORPUSCULAR VOLUME 90.4 fl (80.0-96.0); MONO # 0.4 K/mm3 (0.0-0.8); NEUTROPHILS # 3.8 K/mm3 (1.8-7.7); PLATELET COUNT, AUTOMATED 350 k/mm3 (150-450); RED CELL DISTRIBUTION WIDTH 15.2 % (11.5-14.5); WHITE BLOOD COUNT 6.1 K/mm3 (4.0-10.0)
[2016-08-22 06:20] LABS: INR 2.87
[2016-08-22 06:27] LABS: ALBUMIN/GLOBULIN RATIO 0.41 (1.00-1.93); ALKALINE PHOSPHATASE 88 U/L (45-117); ALT/SGPT 25 U/L (12-78); ANION GAP 7 MEQ/L (8-16); AST/SGOT 13 U/L (15-37); BILIRUBIN,TOTAL 0.4 MG/DL (0.2-1.0); BLOOD UREA NITROGEN 13 MG/DL (7-18); CALCIUM LEVEL 9.3 MG/DL (8.8-10.2); CARBON DIOXIDE LEVEL 29 MEQ/L (21-32); CHLORIDE LEVEL 103 MEQ/L (98-107); GLOMERULAR FILTRATION RATE > 60.0 (>39); GLUCOSE, FASTING 163 MG/DL (83-110); MAGNESIUM LEVEL 1.7 MG/DL (1.8-2.4); POTASSIUM SERUM 3.7 MEQ/L (3.5-5.1); SODIUM LEVEL 139 MEQ/L (136-145); TOTAL PROTEIN 6.9 GM/DL (6.4-8.2)
[2016-08-22] MEDS ORDERED: MAG SULF 1GM/100ML (MAG RUN) 1 GM in APPROPRIATE DILUENT 1 EA IV ONE (08:00)
[2016-08-22] MEDS: SPIRONOLACTONE 12.5MG PER 1/2 TABLET PO SCH (08:11)
[2016-08-22] MEDS: BISACODYL 5 MG TAB PO SCH (08:11)
[2016-08-22] MEDS: ASPIRIN 81 MG ENTERIC TAB PO SCH (08:12)
[2016-08-22] MEDS: SENOKOT S TAB PO SCH ×2 (08:12→21:51)
[2016-08-22] MEDS: PANTOPRAZOLE 40MG TAB (PROTONIX) PO SCH (08:12)
[2016-08-22] MEDS: PREGABALIN 100 MG CAP (LYRICA) PO SCH ×3 (08:12→21:51)
[2016-08-22] MEDS: **NOTE PATIENT COMMENT** MISC XX SCH ×2 (08:13→21:52)
[2016-08-22] MEDS: METOPROLOL SUCC (TopROL XL) 50MG **XL** TAB PO SCH (08:13)
[2016-08-22] MEDS: LIDOCAINE 5% (LIDODERM) PATCH TD SCH ×2 (08:13→21:53)
--- NOTE | 2016-08-22 12:20 | IPN ---
DATE: 08/22/2016 Patient complains of severe pain in the back, unable to ambulate. Has been bed rest with bed estrada. She has been refusing physical therapy due to severe pain and refused all three times. She otherwise denies any lower extremity weakness, but complains of shooting pain from the back to the legs bilaterally, not alleviated by current pain medications. Denies any constipation, saddle anesthesia. No other issues per nursing. PHYSICAL EXAMINATION: Temperature 99.8,pulse 86, respiratory rate 18, blood pressure 119/60, 94% on room air. GENERAL: The patient is awake, alert, oriented times three. Answering questions appropriately. LUNGS: Clear to auscultation. No wheezes, rales, or rhonchi. HEART: S1, S2, sinus rhythm. ABDOMEN: Soft, nontender, nondistended. EXTREMITIES: No cyanosis, clubbing or pitting edema. LABORATORY DATA: White count 6.1, hemoglobin 9, hematocrit 30, platelet count 350. Sodium 139, potassium 3.7, chloride 103, bicarbonate 29, BUN 13, creatinine 0.6. CURRENT MEDICATIONS: - [place] - gentamicin - morphine - Dulcolax - ampicillin - Lidoderm patch - Senokot - chlorthalidone - Lipitor - magnesium oxide - Lyrica - Tylenol - Lidocaine patch - aspirin - Protonix - Toprol XL - spironolactone ASSESSMENT AND PLAN: This is a 76-year-old female with bioprosthetic aortic valve, no evidence of endocarditis and well functioning valve on transesophageal echocardiogram, severe spinal stenosis with degenerative disc disease and persistent severe back pain with Enterococcus faecalis bacteremia with unknown source with ANDRIY negative, still concerning for discitis and epidural abscess. MRI under sedation was negative on 08/18/2016, still currently on ampicillin and gentamicin. CURRENT ISSUES: 1. Intractable back pain secondary to central canal stenosis, disc bulges, foraminal stenosis and nerve root compression preventing ambulation. The patient denies any saddle anesthesia, incontinence or sensory changes. CT of the lumbar spine shows no acute deformity and chronic degenerative changes. Per Dr. Stark, neurosurgery has been consulted. Dr. Sanchez will return today for reevaluation. Currently on Lyrica, [place] and morphine as needed. Physical therapy (PT) has been reconsulted. The patient has refused PT three times previously. 2. Enterococcus faecalis bacteremia with unknown etiology. In April 2016, the patient had right wrist cellulitis. Blood cultures on 08/10 and 08/11/2016 were positive. Repeat culture 08/13/2016 was negative. Transesophageal echo shows no vegetations. MRI negative for discitis and abscess. Currently on day #11 of ampicillin and gentamicin. Dr. Mayer, infectious disease, has been following. 3. History of coronary artery disease, coronary artery bypass graft (CABG), myocardial infarction. Continue aspirin, Lipitor, metoprolol. Hypertension is stable on metoprolol, spironolactone, and chlorthalidone. 4. Aortic valve replacement. On chronic Coumadin, bioprosthetic, and aspirin. 5. Normocytic anemia, stable. 6. Hypokalemia, supplemented. 7. Gastrointestinal prophylaxis with Protonix. 8. Deep vein thrombosis (DVT) prophylaxis with Coumadin.
[2016-08-22 14:00] VITALS: BP 143/80
[2016-08-22] MEDS: tiZANidine 4 MG TAB PO PRN (14:38)
--- NOTE | 2016-08-22 17:22 | IPN ---
DATE: 08/22/2016 Ms. Bruce is complaining of right hip pain and knee pain. She still having trouble ambulating. She states if we give her a back brace and a knee brace, she will be able to work better with physical therapy. I asked the nurses to order a knee brace and a back brace. They said that she needed an orthopedic consultation. Neurosurgery is following her severe back pain with spinal stenosis and will see if they can order her a back brace. She has some swelling of the right knee, but the patient states it is related to her chronic osteoarthritis. She denies any nausea, vomiting, diarrhea, abdominal pain, fever, or chills. She had fever for 6 days into the admission that has finally resolved. PHYSICAL EXAMINATION: Temperature is 98.7. Maximal temperature this morning was 99.8, pulse 101, respirations 18, blood pressure 148/80, oxygen saturation 96% on room air. HEART: Normal S1, S2 with a systolic ejection murmur, unchanged, left upper sternal border. LUNGS: Clear. No wheezes, rales, or rhonchi. ABDOMEN: Obese, soft, nontender. EXTREMITIES: No edema. Right knee osteoarthritic with some swelling, minimal warmth. She is not able to flex her knee more than 10 degrees. Left knee she is able to flex better. Right hip tenderness, mostly in the sacroiliac area. LABORATORY DATA: White count is 6.1, hemoglobin 9.6, hematocrit 30, platelets 350, 62% neutrophils, 29% lymphocytes. Sodium 139, potassium 3.7, chloride 103, bicarbonate 29, BUN 13, creatinine 0.6, glucose 163, calcium 9.3, magnesium 1.7. Urinalysis had 1 white cell, 3 red cells. Blood cultures positive on August 10 and August 11 Enterococcus (E) faecalis. On August 13 were negative. Transesophageal echocardiogram was negative. MRI of the lumbar spine done on August 18 showed diffuse disc bulges at multiple levels with central canal stenosis at L1 and L2, L2-3, and L3-4 with severe canal stenosis at L4-5 with minimal thecal sac compression at L5-S1. IMPRESSION: 1. Enterococcus faecalis bacteremia with still unknown origin in a patient who has a bioprosthetic aortic valve. Still makes it very concerning for endocarditis, although transesophageal echocardiogram (ANDRIY) was negative, sensitivity of ANDRIY is 95%. This is a second recurrence of similar infection, first one being in April, and this one being in July. 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 She will be continued on ampicillin and gentamicin currently, day #11. 2. Intractable back pain with spinal stenosis, followed up with neurosurgery. The patient is asking for a back brace, which she is convinced that will help her with ambulation. Please order a back brace. I will leave that to neurosurgery. 3. Right hip and knee pain. If continues, then I would consider obtaining a CT of hip and knee to rule out septic joint of the hip and knee and consult orthopedic surgery. The patient also would like a knee brace. PLAN: Consider CT hip and knee to rule out infection. The patient is refusing IV antibiotic in a peripherally inserted central catheter (PICC) line at this time. Through a PICC line she does not think that I need to treat her for endocarditis, as most of science is only an educated guess. I have called her son who is a physician laundry assistant, Brennan Roy, left him a message regarding his mother's care. I have discussed with nursing; hopefully we can get her a back brace and a knee brace to help her with ambulation and possibly consult orthopedics.
[2016-08-22] MEDS: MAGNESIUM OXIDE 400 MG TAB (MAG-OX) PO SCH (21:51)
[2016-08-22] MEDS: ATORVASTATIN 20 MG TAB PO SCH (21:51)
[2016-08-22 22:00] VITALS: BP_SYST 133; BP_SYST 140; BP_DIAS 63; BP_DIAS 73
[2016-08-23] MEDS: AMPICILLIN SOD 2 GM in D5W MINI-BAG PLUS 100 ML IV SCH ×6 (02:36→22:14)
[2016-08-23] MEDS: ANEXSIA, NORCO 7.5MG/325MG TABLET(HYDROCODONE/APAP) PO SCH ×3 (05:53→22:12)
[2016-08-23] MEDS: GENTAMICIN 80 MG in APPROPRIATE DILUENT 1 EA IV SCH ×2 (05:53→18:12)
[2016-08-23 06:00] VITALS: BP 125/61
[2016-08-23 07:27] LABS: BASO % 0.3 % (0.0-1.0); EOS % 0.1 % (0.0-3.0); LARGE UNSTAINED CELL # 0.1 K/mm3 (0.0-0.4); LYMPH # 1.8 K/mm3 (1.5-4.5); LYMPH % 27.3 % (24.0-44.0); MEAN CORPUSCULAR HEMOGLOBIN 28.7 pg (27.0-33.0); MEAN CORPUSCULAR HGB CONC 32.1 g/dl (32.0-36.5); MEAN CORPUSCULAR VOLUME 89.3 fl (80.0-96.0); MONO # 0.4 K/mm3 (0.0-0.8); MONO % 5.8 % (0.0-5.0); NEUTROPHILS % 64.6 % (36.0-66.0); PLATELET COUNT, AUTOMATED 350 k/mm3 (150-450); RED CELL DISTRIBUTION WIDTH 15.2 % (11.5-14.5); WHITE BLOOD COUNT 6.2 K/mm3 (4.0-10.0)
[2016-08-23 07:35] LABS: INR 2.32
[2016-08-23 07:59] LABS: ALBUMIN/GLOBULIN RATIO 0.43 (1.00-1.93); ALKALINE PHOSPHATASE 91 U/L (45-117); ALT/SGPT 22 U/L (12-78); ANION GAP 10 MEQ/L (8-16); AST/SGOT 11 U/L (15-37); BILIRUBIN,TOTAL 0.6 MG/DL (0.2-1.0); BLOOD UREA NITROGEN 13 MG/DL (7-18); CALCIUM LEVEL 9.4 MG/DL (8.8-10.2); CARBON DIOXIDE LEVEL 29 MEQ/L (21-32); CHLORIDE LEVEL 101 MEQ/L (98-107); CREATININE FOR GFR 0.62 MG/DL (0.55-1.02); GLOMERULAR FILTRATION RATE > 60.0 (>39); GLUCOSE, FASTING 144 MG/DL (83-110); MAGNESIUM LEVEL 1.8 MG/DL (1.8-2.4); POTASSIUM SERUM 3.6 MEQ/L (3.5-5.1); SODIUM LEVEL 140 MEQ/L (136-145); TOTAL PROTEIN 6.6 GM/DL (6.4-8.2)
[2016-08-23 08:51] LABS: ERYTHROCYTE SEDIMENTATION RATE 106 mm/hr (0-30)
[2016-08-23] MEDS: **NOTE PATIENT COMMENT** MISC XX SCH ×2 (09:00→21:00)
[2016-08-23] MEDS ORDERED: SCOPOLAMINE 1.5 MG TRANSDERMAL TD PRN (09:30)
[2016-08-23] MEDS ORDERED: MORPHINE 2 MG/ML 1ML SYRINGE IV PRN (09:30)
[2016-08-23] MEDS ORDERED: ATROPINE SULFATE 1% OP SOLN 2 ML BTL SL PRN (09:30)
[2016-08-23] MEDS ORDERED: LORazepam 1 MG TAB PO PRN (09:30)
[2016-08-23] MEDS ORDERED: MORPHINE 10MG/0.5ML ORAL CONCENTRATE SOLUTION U/D SL PRN (09:30)
[2016-08-23] MEDS: LIDOCAINE 5% (LIDODERM) PATCH TD SCH ×2 (10:39→22:08)
[2016-08-23] MEDS: SPIRONOLACTONE 12.5MG PER 1/2 TABLET PO SCH (10:39)
[2016-08-23] MEDS: PANTOPRAZOLE 40MG TAB (PROTONIX) PO SCH (10:40)
[2016-08-23] MEDS: METOPROLOL SUCC (TopROL XL) 50MG **XL** TAB PO SCH (10:40)
[2016-08-23] MEDS: CHLORTHALIDONE 12.5MG PER 1/2 TABLET PO SCH (10:40)
[2016-08-23] MEDS: BISACODYL 5 MG TAB PO SCH (10:40)
[2016-08-23] MEDS: ASPIRIN 81 MG ENTERIC TAB PO SCH (10:40)
[2016-08-23] MEDS: PREGABALIN 100 MG CAP (LYRICA) PO SCH ×3 (10:40→20:24)
[2016-08-23] MEDS: SENOKOT S TAB PO SCH ×2 (10:40→20:24)
[2016-08-23 14:00] VITALS: BP 136/62
--- NOTE | 2016-08-23 14:04 | IPN ---
DATE: 08/23/2016 The patient is seen and examined at the bedside. Chart has been reviewed. The patient had a maximum temperature (T-max) of 100.7. Peripheral IV line was dislodged. The patient has refused peripherally inserted central catheter (PICC) line placement and peripheral IV line to be placed and a central line placement for IV antibiotics this morning. Due to recurrent fevers, the patient is being evaluated for hip and right knee possible septic joints but has refused x-rays and imaging studies this morning. Due to chronic lower extremity edema, she was also sent for a venous Doppler to rule out deep vein thrombosis (DVT) which she has refused as well. After 30 minutes of explanation as to why these tests were required, the patient became agreeable to doing a PICC line and for antibiotics to be resumed and all imaging studies and specialist care to be resumed. I have called her son at [phone] who has not responded to me yet. PHYSICAL EXAMINATION: VITAL SIGNS: Temperature 98.3, maximum temperature (T-max) 100.7, pulse 80, respiratory rate 18, blood pressure 125/61, 95% on room air. GENERAL: The patient is awake, alert and oriented times three, appears her stated age. NECK: No jugular venous distention (JVD). LUNGS: Clear to auscultation. No wheezes, rales, or rhonchi. HEART: S1, S2, sinus rhythm. ABDOMEN: Soft, nontender, nondistended. Positive bowel sounds. EXTREMITIES: Right knee pain, slight swelling, unable to flex. Right hip tenderness. LABORATORY DATA: CBC and metabolic panel have been reviewed. Microbiology: Enterococcus faecalis in the blood culture. ASSESSMENT AND PLAN: This is a 76-year-old female with past history of bioprosthetic aortic valve, no evidence of endocarditis and well-functioning valve on transesophageal echocardiogram (ANDRIY), severe spinal stenosis with degenerative disc disease, who presented to the emergency room with persistent severe back pain, was found to have recurrent fevers, blood culture grew out Enterococcus faecalis, ANDRIY was negative. MRI under sedation was negative for discitis and epidural abscess. 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 CURRENT ISSUES: 1. 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 The patient is currently on day number two of ampicillin and gentamicin. The patient had refused peripherally inserted central catheter (PICC) line placement yesterday, and this morning after 30 minutes of intense discussion, she was agreeable to having PICC line placed now. I have called Dr. Mayer and the patient's son for some assistance in convincing her. 2. Intractable back pain secondary to spinal stenosis. Yulianargeon, Dr. Sanchez, has not done a reevaluation at this time. Defer to neurosurgery for a brace. Not a surgical candidate at this time due to active infection. Currently on Lyrica, [place], and morphine. Physical therapy (PT) has been reconsulted. The patient continues to refuse to get up out of bed due to severe pain. She currently denies any saddle anesthesia, incontinence, or sensory changes. 3. Right knee and hip pain secondary to osteoarthritis. The patient had refused imaging studies this morning but has changed her mind after a 30 minute intense discussion. Therefore, we will proceed with x-rays, imaging, and CT if needed. Orthopedic surgery has been consulted. Brace has been ordered. 4. Bioprosthetic aortic valve replacement, on aspirin and Coumadin. 5. History of coronary artery disease (CAD) and coronary artery bypass graft (CABG), on aspirin, Lipitor, and metoprolol. 6. Hypertension, on metoprolol, spironolactone, and chlorthalidone. 7. Normocytic anemia, stable. 8. Hypokalemia, supplemented.
[2016-08-23] MEDS ORDERED: LIDOCAINE 1% MDV 20ML VIAL As Ordered ONE (15:37)
[2016-08-23] MEDS ORDERED: LIDOCAINE 1% SDV INJ 30 ML VIAL SC SCH (15:45)
[2016-08-23 16:19] LABS: CRYSTALS, BODY FLUID NONE SEEN (NONE SEEN); SYNOVIAL FLUID COLOR RED (YELLOW)
--- NOTE | 2016-08-23 16:40 | CR ---
DATE OF CONSULTATION: 08/23/2016 REASON FOR CONSULTATION: Bilateral knee pains. HISTORY OF PRESENT ILLNESS: She is a 76-year-old female who has had a longstanding history of significant degenerative arthritis of her lumbar spine, both hips, and both knees for many years. Her knee pains have dated back to her teenage years. She has known severe windswept alignment of her lower extremities that is varus on the left and valgus on the right with severe tricompartmental degenerative arthritis. Actually saw Dr. Abiel Gardner, my partner, back in March for consideration of bilateral knee replacements, but that has been deferred pending cardiac evaluation with Dr. Cheng. Relevant history is 3-year-old porcine aortic valve replacement. She was admitted to the hospital for pneumonia a few months ago. She also has longstanding troubles with her back pain with severe spinal stenosis. Her knee pains vary. Sometimes the right is worse than the left. They become swollen and effused intermittently. They seem to alternate , and she is quite limited by that. Her hips were finally cared for out of state. I believe they were done in [place], and she has done well ever since, since she has had her total hip arthroplasty, in terms of any hip pain. She does not complain of hip pain recently. She mainly relates to having back pain that radiates across the base of the lumbar spine and of both buttocks but not groin pain. She has been readmitted because of intractable back pain and during her evaluation found to have elevated inflammatory markers and had positive blood cultures for Enterococcus faecalis. At least four cultures have been positive. There has been no obvious source noted. During her evaluation, MR scan and CT scan of her lumbar spine showed the severe stenosis with grade 1-2 listhesis of 4 on 5. Recent set of x-rays show a well-fixed total hip arthroplasties. X-rays of both knees done in March were reviewed at my office, showing severe arthritis of both knees. She is having significant difficulty walking because of predominantly the back pain. Neurosurgery apparently has evaluated her and ordered a back brace, which she was just introduce to today. I am not seeing any consultation note yet for neurosurgery. Most of the swelling and pain she relates recently when I examine her today is about the right knee. She does not describe significant radicular-type symptoms down into her legs, although she says her left foot is sometimes more numb than it is on the right side of the bottom, or plantar surface, of her lower leg. PAST MEDICAL HISTORY: Reviewed. She has a past medical history of: 1. Aortic valve repair and coronary artery bypass graft in 2015. 2. History of myocardial infarction. 3. Hypertension. 4. Hiatal hernia. 5. Zue-mixttmy-cdymyhrqq diabetes. 6. History of deep vein thrombosis (DVT. 7. Chronic low back pain with spinal stenosis. PAST SURGICAL HISTORY: 1. Bilateral total hips. 2. Cholecystectomy. 3. Bilateral carpal tunnel releases. 4. Aortic valve repair, as mentioned, with CABG. She lives in [place] most of her life. She has a who is in the and has been doing some traveling. Her son, Brennan Roy, works as a PA. Chronically she uses a walker for ambulation. Does not smoke or drink alcohol excessively. REVIEW OF SYSTEMS: Health history is otherwise unremarkable. Otherwise, there has been a history of bilateral wrist troubles or tendinitis she describes, although there is note of infectious cellulitis of her right wrist in the past, but that seems to be resolved now. HOME MEDICATIONS: Coumadin, Toradol, Dulcolax, Senokot, chlorthalidone, magnesium, Lipitor, Lyrica, tizanidine, baby aspirin, Protonix, metoprolol, Aldactone. Nonetheless, when I examined her and talked to her, she is a relatively difficult historian, but she mainly complains of back pain and right knee pain. She refused to allow me to examine her back and to tell, because she did not want to sit up; however, when I examine her hips, there is clearly no significant irritability to internal or external rotation of either hip, but her right knee is swollen, and that does cause discomfort, pain, and soreness in that knee when I try to flex and extend it. It is slightly warm. I would call it a small to moderate effusion. Left knee, she can flex and extend fairly comfortably, but there is quite a bit of crepitance and tenderness diffusely about the left knee as well. Distally there is no swelling of the ankles. Good pulses in her feet. She has good motor strength in her dorsiflexion/plantarflexion of both feet with some decreased sensation in the plantar surface of the left foot, somewhat so on the right side , but no pitting edema or swelling of the ankles. Her shoulders, she has a sore left shoulder, which is chronic. She said she needed a shoulder replacement. She cannot elevate up fully with that left side. It has been chronically sore for many years, she describes. Her right shoulder and arm she can elevate up over her head. There is some irritability and pain with some impingement signs there, but the shoulders, elbows, and wrists do not have any redness, swelling, or any signs of active infection. LABORATORY STUDIES: Reviewed showed that her white count is trending down. There have been no elevated white counts during this hospitalization. Her sedimentation at one point was greater than 140, but now it is trending down to 106. She had a CRP that has been as high as 13.8 on this hospitalization. It is down now today down to 9.7. Vital signs are stable. Her chemistries were essentially normal today with a glucose of 144. AST low at 11. Albumin is low at 2. Prothrombin time was 25.5 with an INR of 2.32 today. Radiographs were reviewed as described above. The MRI scan and CT scan of the lumbar spine were reviewed, showing the severe stenosis. No signs of any fractures or lytic or blastic lesions. CT scan of the abdomen and pelvis did not show any obvious acute pathology other than some atelectasis. IMPRESSION: 1. My impression overall is that she has significant lumbar spinal stenosis and back pain. 2. She has bilateral total hip arthroplasties, but to my exam the appear to be benign. There is no obvious irritability. I do not think this would be the source of her bacteremia. 3. Bilateral severe knee arthritis. 4. Significant effusion of the right knee. From an orthopedic standpoint, it is possible she has gone on to get an infected arthritic knee, or this is simply an arthritic synovitis. Difficult to say for certain now that she has been on antibiotics for several days now, but I think it might be reasonable to at least aspirate the knee and get a joint/fluid account to see if this shows any sign of significant inflammation in her knee joint. Otherwise, presently she is going to be scheduled for peripherally inserted central catheter (PICC) line placement and continuing of her IV antibiotics, which has been ampicillin and gentamicin. PLAN: To aspirate her knee for now, and she is going to down apparently later today for an ultrasound of her lower extremities and CT scans of her hips to look for any drainable fluid collection. Her cultures have shown the enterococcus, as mentioned. I have discussed this with Dr. Jonas today. FAUSTINO
[2016-08-23 16:41] LABS: RBC ADVIA BF 0.11; RBC CALC. BF 110000 (< 10mm3 cells/uL); WBC ADVIA BF 7.8; WBC CALC. BF 7800 cells/uL (0-20)
[2016-08-23 16:45] LABS: BF DIFF IF INDICATED? YES (NO)
[2016-08-23] MEDS ORDERED: LIDOCAINE 1% MDV 20ML VIAL SC ONE (17:00)
[2016-08-23] MEDS ORDERED: ISOVUE-370 76% 100ML VIAL (Q9967) As Ordered ONE (17:03)
--- NOTE | 2016-08-23 17:55 | REP ---
CT of the pelvis with IV contrast: There are bilateral total hip arthroplasties. There is image degradation from beam hardening artifact generated by the arthroplasties. There are no definite lytic, blastic or destructive skeletal changes in the lumbar and the visualized portion of the lumbar spine, sacrum, iliac wings pubic symphysis variation. The proximal femurs are obscured by the surgical hardware. There is no ascites. There are no focal fluid collections to suggest hematoma or abscess. The bladder is unremarkable. The uterus and adnexa are unremarkable. There is sigmoid colon diverticulosis. No evidence of diverticulitis. No inflammatory changes in the mesentery. Superior most image there is a 17 mm hypodense lesion posteriorly at the mid pole of the right kidney on one image only, of uncertain significance, however, given the clinical history possibilities of pyelonephritis or renal abscess cannot be entirely discounted. Impression: No evidence of focal fluid collection in the pelvis is suggest abscess or hematoma. No lytic, blastic or destructive skeletal changes although the hips are obscured by the surgical hardware. On the superior most image only there is a 17 mm hypodensity posteriorly in the right kidney, nonspecific, as is seen on one image only. However, given the patient history, the possibilities of renal abscess or pyelonephritis cannot be entirely discounted. Signed by Uriel Borrero MD 08/23/2016 05:46 P
[2016-08-23] MEDS ORDERED: SODIUM CHLORIDE 0.9% INJ 10 ML SYR IV PRN ×2 (18:00→18:15)
--- NOTE | 2016-08-23 18:03 | CR.PDOC ---
General Reason for Consultation/CC The patient is a 76-year-old female admitted with a reason for visit of Chronic Back Pain. History of Present Illness Imaging: MRI lumbar, 08/18/16. 1. Minimal central canal stenosis at L1-2 level secondary to disc bulge, ligamentous, and facet hypertrophy. 2. Moderate central canal stenosis at the L2-3 and L3-4 levels secondary to disc bulge, ligamentous and facet hypertrophy and osteophyte formation. 3. Severe central canal stenosis at the L4-5 level secondary to disc bulge, ligamentous and facet hypertrophy and grade 1 spondylolisthesis. There is a compression of the L4 nerves and the neural foramina. 4. Diffuse disc bulge at the L5-S1 level with minimal thecal sac compression. There is compression of the L5 nerves in the neural foramina. PLAN/RECOMMENDATIONS: Discuss the results of her lumbar MRI image with her. She understands the severity of her central canal stenosis at L4-5 and the spondylolisthesis. Option 1. Trial of adjustable TLSO brace. I called and spoke with Ryan Yañez from [facility] to measure and fit her for brace. Once she obtains the brace, will have PT assess her. If symptoms are satisfactory for her, we can continue with the brace and Vicodin when necessary. Option 2. She was offered surgery. She will discuss these options with her family and get back to us with a decision. The brace has been ordered since she will be able to use this now in the hopes of potentially relieving some of her symptoms and can also be beneficial postop if she decides to proceed with surgery. Thank you for the consultation. Charisse Cheung, RPA-C Dr Sanchez Vital Signs/I&O Vital Signs Date Time Temp Pulse Resp B/P (MAP) Pulse Ox O2 Delivery O2 Flow Rate FiO2 08/23/16 14:47 18 08/23/16 14:00 98.1 72 136/62 (86) 95 Room Air I&O- Last 24 Hours up to 6 AM 08/23/16 05:59 Intake Total 1760 ml Output Total 1700 ml Balance 60 ml Laboratory Data 24H Labs Laboratory Tests 2 08/23/16 07:10: White Blood Count 6.2, Red Blood Count 3.34L, Hemoglobin 9.6L, Hematocrit 29.9L , Mean Corpuscular Volume 89.3, Mean Corpuscular Hemoglobin 28.7, Mean Corpuscular Hemoglobin Concent 32.1, Red Cell Distribution Width 15.2H, Platelet Count 350, Neutrophils (%) (Auto) 64.6, Lymphocytes (%) (Auto) 27.3, Monocytes (%) (Auto) 5.8H, Eosinophils (%) (Auto) 0.1, Basophils (%) (Auto) 0.3 , Neutrophils # (Auto) 4.0, Lymphocytes # (Auto) 1.8, Monocytes # (Auto) 0.4, Eosinophils # (Auto) 0.0, Basophils # (Auto) 0.0, Large Unclassified Cells % 2.0 , Large Unclassified Cells # 0.1, Erythrocyte Sedimentation Rate 106H, Prothrombin Time 25.5H, Prothromb Time International Ratio 2.32, Anion Gap 10, Glomerular Filtration Rate > 60.0, Blood Urea Nitrogen 13, Creatinine 0.62, Sodium Level 140, Potassium Level 3.6, Chloride Level 101, Carbon Dioxide Level 29, Calcium Level 9.4, Aspartate Amino Transf (AST/SGOT) 11L, Alanine Aminotransferase (ALT/SGPT) 22, Alkaline Phosphatase 91, Total Bilirubin 0.6, Total Protein 6.6, Albumin 2.0L, Magnesium Level 1.8, C-Reactive Protein, Quantitative 9.71H, Albumin/Globulin Ratio 0.43L 08/23/16 15:54: Body Fluid Source RT KNEE, Body Fluid Hematocrit < 1.0, Body Fluid Crystals NONE SEEN, Body Fluid Crystal Source RT KNEE, Body Fluid Glucose Source RT KNEE , Body Fluid Glucose 34, Body Fluid Uric Acid 7.0, Synovial Fluid Source RT KNEE , Synovial Fluid Color RED, Synovial Fluid Appearance TURBID, Synovial Fluid WBC 7800H, Synovial Fluid RBC 272326 CBC/BMP Laboratory Tests 08/23/16 07:10 Red Blood Count 3.34 L, Mean Corpuscular Volume 89.3, Mean Corpuscular Hemoglobin 28.7, Mean Corpuscular Hemoglobin Concent 32.1, Red Cell Distribution Width 15.2 H, Neutrophils (%) (Auto) 64.6, Lymphocytes (%) (Auto) 27.3, Monocytes (%) (Auto) 5.8 H, Eosinophils (%) (Auto) 0.1, Basophils (%) ( Auto) 0.3, Neutrophils # (Auto) 4.0, Lymphocytes # (Auto) 1.8, Monocytes # (Auto ) 0.4, Eosinophils # (Auto) 0.0, Basophils # (Auto) 0.0, Calcium Level 9.4, Aspartate Amino Transf (AST/SGOT) 11 L, Alanine Aminotransferase (ALT/SGPT) 22, Alkaline Phosphatase 91, Total Bilirubin 0.6, Total Protein 6.6, Albumin 2.0 L Microbiology Microbiology 08/23/16 Blood Culture, Received Pending 08/23/16 Blood Culture, Received Pending 08/13/16 Blood Culture - Final, Complete NO GROWTH AFTER 5 DAYS 08/13/16 Blood Culture - Final, Complete NO GROWTH AFTER 5 DAYS 08/23/16 Gram Stain, Received Pending 08/23/16 Body Fluid Culture, Received Pending Allergies Coded Allergies: Heparin (Unverified Allergy, Unknown, Anaphylaxis, 04/14/16) Home Medications Scheduled Acetaminophen (Tylenol 8 Hour Arthritis) 650 Mg Tab, 650 MG PO TID, (Reported) Aspirin (Aspirin EC) 81 Mg Tabec, 81 MG PO DAILY, (Reported) Atorvastatin Calcium (Atorvastatin Calcium) 40 Mg Tab, 40 MG PO QHS, (Reported) Chlorthalidone (Chlorthalidone) 12.5 Mg Halftab, 12.5 MG PO 3XW, (Reported) SUNDAY, SUNDAY, SUNDAY Esomeprazole Magnesium Trihydr (Nexium) 40 Mg Cap, 40 MG PO DAILY, (Reported) PATIENT HAS BEEN OUT FOR A FEW DAYS AND HAS BEEN TAKING RANITIDINE Lidocaine (Lidoderm) 5 % Dis, 5 PATCH TD DAILY, (Reported) MAX DOSE OF 3 PATCHES... PATIENT STATES SHE HAS BEEN USING 5 TO 6 MOST DAYS AND APPLYING WHEREVER SHE FEELS NEEDED. CURRENTLY HAS ONE APPLIED TO RIGHT KNEE. Magnesium Oxide (Magnesium Oxide) 400 Mg Tab, 400 MG PO QHS, (Reported) Metoprolol Succinate (Metoprolol Succinate ER) 50 Mg Tab, 50 MG PO DAILY, ( Reported) Pregabalin (Lyrica) 50 Mg Cap, 100 MG PO TID, (Reported) PATIENT STATES SHE STARTED TAKING 100MG TID OF 08/09/16 NOON. RX STATES 50MG TID Spironolactone (Spironolactone) 25 Mg Tab, 12.5 MG PO DAILY, (Reported) Warfarin Sod (Coumadin) 4 Mg Tab, 4 MG PO 1XWK, (Reported) QPM: MONDAYS Warfarin Sod (Coumadin) 3 Mg Tab, 3 MG PO 6XWK, (Reported) QPM: SUN, , SUN, , SUN, SAT Scheduled PRN Meclizine HCl (Meclizine HCl) 25 Mg Tab, 25 TAB PO Q6HP PRN for DIZZINESS, ( Reported) Nitroglycerin (Nitrostat) 0.4 Mg Subl, 0.4 MG SL NITRO PRN for ANGINA, (Reported ) Tramadol HCl (Tramadol HCl) 50 Mg Tab, 50 MG PO 5XD PRN for PAIN, (Reported) HANG CHEUNG PA-C August 23, 2016 18:03
[2016-08-23 18:11] LABS: CC BF DIFF EXAM CYTOCENTRIFUGE
[2016-08-23] MEDS: SODIUM CHLORIDE 0.9% INJ 10 ML SYR IV SCH (18:12)
--- NOTE | 2016-08-23 18:12 | REP ---
CT of the right knee with IV contrast: Study is performed in conjunction with the CT of the pelvis with IV contrast. Axial images are acquired helical scanning and a reformatted in sagittal and coronal projections. 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 There are subcortical cysts in the distal femur and proximal tibia as a consequence of the osteoarthritis. There are no lytic, blastic or destructive skeletal changes to suggest osteomyelitis. There are no soft tissue periarticular fluid collections to suggest abscess. However, there is an effusion in the suprapatellar pouch. There is synovial enhancement in the suprapatellar pouch. The these findings are compatible with synovitis s which could be inflammatory or infectious. Impression: There are findings compatible with synovitis, inflammatory versus infectious. No soft tissue abscesses. No evidence of osteomyelitis. 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 Signed by Uriel Borrero MD 08/23/2016 06:03 P
[2016-08-23] MEDS: ATORVASTATIN 20 MG TAB PO SCH (20:23)
[2016-08-23] MEDS: MAGNESIUM OXIDE 400 MG TAB (MAG-OX) PO SCH (20:24)
[2016-08-23 22:00] VITALS: BP 132/62
[2016-08-24] MEDS: AMPICILLIN SOD 2 GM in D5W MINI-BAG PLUS 100 ML IV SCH ×6 (01:09→22:08)
[2016-08-24 05:19] LABS: BASO % 0.3 % (0.0-1.0); EOS % 0.4 % (0.0-3.0); LARGE UNSTAINED CELL # 0.2 K/mm3 (0.0-0.4); LARGE UNSTAINED CELL % 2.7 % (0.0-4.0); LYMPH # 1.9 K/mm3 (1.5-4.5); MEAN CORPUSCULAR HEMOGLOBIN 28.7 pg (27.0-33.0); MEAN CORPUSCULAR HGB CONC 31.7 g/dl (32.0-36.5); MEAN CORPUSCULAR VOLUME 90.6 fl (80.0-96.0); MONO # 0.5 K/mm3 (0.0-0.8); NEUTROPHILS % 60.6 % (36.0-66.0); PLATELET COUNT, AUTOMATED 338 k/mm3 (150-450); RED CELL DISTRIBUTION WIDTH 15.1 % (11.5-14.5); WHITE BLOOD COUNT 6.5 K/mm3 (4.0-10.0)
[2016-08-24 05:28] LABS: INR 2.06
[2016-08-24 05:38] LABS: ALBUMIN 2.1 GM/DL (3.2-5.2); ALBUMIN/GLOBULIN RATIO 0.51 (1.00-1.93); ALKALINE PHOSPHATASE 106 U/L (45-117); ALT/SGPT 21 U/L (12-78); ANION GAP 9 MEQ/L (8-16); AST/SGOT 14 U/L (15-37); BILIRUBIN,TOTAL 0.6 MG/DL (0.2-1.0); BLOOD UREA NITROGEN 13 MG/DL (7-18); CALCIUM LEVEL 9.2 MG/DL (8.8-10.2); CARBON DIOXIDE LEVEL 29 MEQ/L (21-32); CHLORIDE LEVEL 101 MEQ/L (98-107); CREATININE FOR GFR 0.67 MG/DL (0.55-1.02); GLOMERULAR FILTRATION RATE > 60.0 (>39); GLUCOSE, FASTING 174 MG/DL (83-110); MAGNESIUM LEVEL 1.8 MG/DL (1.8-2.4); POTASSIUM SERUM 3.6 MEQ/L (3.5-5.1); SODIUM LEVEL 139 MEQ/L (136-145); TOTAL PROTEIN 6.2 GM/DL (6.4-8.2)
[2016-08-24] MEDS: GENTAMICIN 80 MG in APPROPRIATE DILUENT 1 EA IV SCH ×2 (05:40→18:03)
[2016-08-24] MEDS: SODIUM CHLORIDE 0.9% INJ 10 ML SYR IV SCH ×4 (05:41→18:03)
[2016-08-24 05:53] VITALS: BP 130/56
[2016-08-24] MEDS: ANEXSIA, NORCO 7.5MG/325MG TABLET(HYDROCODONE/APAP) PO SCH ×3 (06:00→22:08)
--- NOTE | 2016-08-24 07:27 | RO ---
DATE OF PROCEDURE: 08/23/2016 PREOPERATIVE DIAGNOSIS: Right knee synovitis. POSTOPERATIVE DIAGNOSIS: Right knee synovitis. PROCEDURE: Right knee aspiration. SURGEON: Sofia Reed MD GENERATION ENGINEERING TECHNOLOGIST: ANESTHESIA: Local. COMPLICATIONS: None. DESCRIPTION OF PROCEDURE: She has been on antibiotics. Consent was signed. Her right knee area was prepped and draped with Betadine swab. From a superolateral aspect of the knee, I injected approximately 5 mL of 1% lidocaine. I then used an 18 gauge needle to aspirate her knee. I obtained about 5 mL of bloody, watery fluid from the knee joint. It did not appear purulent. She tolerated it well. I did also instill then about 5 mL of 1% lidocaine for pain relief. I covered it with a Band-Aid and a gauze pad. She tolerated it well. It was sent for formal joint fluid analysis, gram stain, culture and sensitivity.
[2016-08-24] MEDS: LIDOCAINE 5% (LIDODERM) PATCH TD SCH ×3 (08:23→20:50)
[2016-08-24] MEDS: ASPIRIN 81 MG ENTERIC TAB PO SCH (08:23)
[2016-08-24] MEDS: BISACODYL 5 MG TAB PO SCH (08:23)
[2016-08-24] MEDS: PANTOPRAZOLE 40MG TAB (PROTONIX) PO SCH (08:23)
[2016-08-24] MEDS: SENOKOT S TAB PO SCH ×2 (08:23→20:35)
[2016-08-24] MEDS: SPIRONOLACTONE 12.5MG PER 1/2 TABLET PO SCH (08:23)
[2016-08-24] MEDS: PREGABALIN 100 MG CAP (LYRICA) PO SCH ×4 (08:23→20:35)
[2016-08-24] MEDS: METOPROLOL SUCC (TopROL XL) 50MG **XL** TAB PO SCH (08:23)
[2016-08-24] MEDS: **NOTE PATIENT COMMENT** MISC XX SCH ×2 (08:23→20:50)
[2016-08-24 08:36] LABS: HCT SOURCE RT KNEE
[2016-08-24 14:00] VITALS: BP 133/68
--- NOTE | 2016-08-24 18:38 | IPNPDOC ---
Text Note Date of Service The patient was seen on 08/24/16. NOTE Subjective: Patient seen and examined at bedside. Denies fevers, chills, chest pain, SOB, dizziness, headache, nausea, vomiting, abdominal pain, diarrhea. Admits to constipation. Admits to weakness all over body. Admits to R knee pain 7/10 in intensity and aching in nature. Denies dysuria, hematuria, hematochezia. Admits to back pain only with position changes/movement but not while lying in bed in one position. In addition, states she does not wish to end up in hospice or get placed anywhere else other than her home. Mentally is not ready for going to any other place than her home. Admits that she does not know what her "body" is ready for. Objective: Vitals: T:97.3 BP: 130/56 RR: 16 P: 75 O2 Saturation: 98% room air. General: AAOx3. Elderly female lying comfortably in bed. In NAD. Calm and cooperative. HEENT: Head: normocephalic, atraumatic. Ears: grossly normal hearing bilaterally. Eyes: Sclera are nonicteric. Nose: No external lesions. Neck: Supple. No cervical LAD bilaterally. No thyromegaly. Respiratory: clear to auscultation bilaterally with no wheezes, rales, or rhonchi. Cardiovascular: regular rate and rhythm, with no murmurs, rubs or gallops. Abdomen: soft, nontender, nondistended, no hepatosplenomegaly appreciated. Bowel sounds present. Extremities: mild swelling of R knee joint. Tenderness to palpation of R knee joint. no other swelling in either lower extremity bilaterally. Musculoskeletal: Decreased ROM and patient cannot move out of bed without assistance. Neurological: no focal neurologic deficits appreciated bilaterally. Integumentary: skin free from rashes, lesions, abrasions Vascular: +2 dorsalis pedis and radial pulses palpable and symmetrical bilaterally Laboratory data: Please see below. Glucose 174 Albumin: 2.1 Total protein: 6.2 Hgb: 9.7 UA: (-) but cloudy and 1 squamous epithelial cell Microbiology: Please see below. Blood cx: (+) Enterococcus Faecalis Urine cx: pending 08/23 Joint Fluid Aspiration R Knee: Gram stain and cultures pending. Imaging: CT of the Pelvis with IV Contrast: Impression: No evidence of focal fluid collection in the pelvis is suggest abscess or hematoma. No lytic, blastic or destructive skeletal changes although the hips are obscured by the surgical hardware. On the superior most image only there is a 17 mm hypodensity posteriorly in the right kidney, nonspecific, as is seen on one image only. However, given the patient history, the possibilities of renal abscess or pyelonephritis cannot be entirely discounted. CT of the R Knee with IV Contrast: There is advanced tricompartment osteoarthritis. There are subcortical cysts in the distal femur and proximal tibia as a consequence of the osteoarthritis. There are no lytic, blastic or destructive skeletal changes to suggest osteomyelitis. There are no soft tissue periarticular fluid collections to suggest abscess. However, there is an effusion in the suprapatellar pouch. There is synovial enhancement in the suprapatellar pouch. The these findings are compatible with synovitis s which could be inflammatory or infectious. Impression: There are findings compatible with synovitis, inflammatory versus infectious.No soft tissue abscesses. No evidence of osteomyelitis. There is advanced tricompartment osteoarthritis Assessment: 76-year-old female with PMH significant for bioprosthetic aortic valve, DDD and severe spinal stenosis presents for recurrent fevers, severe back pain, R knee pain and joint swelling. Blood cx found to be (+) for Enterococcus Faecalis. ANDRIY recently done was (-). 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 Is also status-post R knee joint aspiration yesterday. Plan: Recurrent Fevers/Positive Blood Cx Enterococcus Faecalis: Continue ID recommendations and treatment with ampicillin and gentamycin for a total of 6 weeks. Is day 12 of ampicillin and gentamycin. Appreciate ID recommendations. Right knee synovitis: Joint aspiration performed by Dr. Rowley yesterday. According to ID note, joint aspiration is suggestive of arthritic changes vs. septic joint. Could be rheumatoid vs. osteoarthritis. Follow up culture and gram stain when available. Intractable back pain 2/2 Spinal Stenosis: Is receiving back brace today. Continue lyrica, norco, and morphine. PT reconsulted. [facility] saw and evaluated patient yesterday. Patient was offered neurosurgery and back brace was ordered in hopes to relieve pain. According to note, patient will think about this option and discuss it with her family. Bioprosthetic aortic valve replacement: continue aspirin, coumadin, and antibiotics for presumed endocarditis. Hx of CAD nad CABG: continue aspirin, atorvastatin, and metoprolol. Hypertension: continue metoprolol, spironolactone, and chlorthalidone. Normocytic anemia: Hgb 9.7 today. Stable. Continue monitoring CBCs. Hypokalemia: K 3.6 today. Continue with supplementation as needed. DVT ppx: INR therapeutic at this time. Patient normally anticoagulated with coumadin. Immunizations as per protocol. My preceptor for this patient encounter was Dr. Jeremiah Portillo, and was physically present in the building during the encounter and was fully available. As needed, all aspects of the patient interview, examination, medical decision making process, and medical care plan development were reviewed and approved by the preceptor. Preceptor is aware and concurs with the plan as stated in the body of this note and will attest to such by his/her cosignature Attending Note I, Dr. Portillo, Hospitalist Attending Physician, have independently interviewed and examined the patient at the bedside. I have discussed the management plan with my Resident Physician, and agree with the documentation as stated above. VS,Fishbone, I+O VS, Fishbone, I+O Laboratory Tests 08/24/16 05:04 Red Blood Count 3.38 L, Mean Corpuscular Volume 90.6, Mean Corpuscular Hemoglobin 28.7, Mean Corpuscular Hemoglobin Concent 31.7 L, Red Cell Distribution Width 15.1 H, Neutrophils (%) (Auto) 60.6, Lymphocytes (%) (Auto) 29.0, Monocytes (%) (Auto) 7.0 H, Eosinophils (%) (Auto) 0.4, Basophils (%) ( Auto) 0.3, Neutrophils # (Auto) 4.0, Lymphocytes # (Auto) 1.9, Monocytes # (Auto ) 0.5, Eosinophils # (Auto) 0.0, Basophils # (Auto) 0.0, Calcium Level 9.2, Aspartate Amino Transf (AST/SGOT) 14 L, Alanine Aminotransferase (ALT/SGPT) 21, Alkaline Phosphatase 106, Total Bilirubin 0.6, Total Protein 6.2 L, Albumin 2.1 L Vital Signs Date Time Temp Pulse Resp B/P (MAP) Pulse Ox O2 Delivery O2 Flow Rate FiO2 08/24/16 15:30 Room Air 08/24/16 14:00 97.9 88 18 133/68 (13) 96 I&O- Last 24 Hours up to 6 AM 08/24/16 05:59 Intake Total 1500 ml Output Total 2200 ml Balance -700 ml MAYNOR BOURNE OGME-1 Aug 24, 2016 18:38 JEREMIAH PORTILLO MD Aug 25, 2016 06:44
--- NOTE | 2016-08-24 19:32 | REP ---
Procedure: PICC line insertion with Viola The procedure was performed under the direct supervision of Dr. Navarro. The risks and benefits of the procedure were explained to the patient and informed consent was obtained. The left vein was localized using ultrasound guidance. The skin was prepped and draped in a sterile fashion. 2% lidocaine was used as a local anesthetic. Using ultrasound guidance the left vein was cannulated and a 0.018 guidewire was inserted and advanced to the SVC using fluoroscopic guidance. The needle was removed and a 4.5 Peruvian dilator and peel-away sheath was inserted over the guide wire. A 4.5 Peruvian single lumen catheter was cut to length of 44 cm. The dilator was removed and the catheter was inserted over the guide wire with the tip ending in the SVC. The peel-away sheath was removed and the catheter was flushed with heparinized saline as per Hospital protocol. The catheter was affixed to the skin and a sterile dressing was applied. The the patient tolerated the procedure well and there were no immediate complications. 0.3 minutes of fluoro time was utilized for this procedure. Reviewed by CATA Callaway 08/23/2016 05:16 PSigned by Uriel Navarro MD 08/24/2016 07:19 P
[2016-08-24] MEDS: ATORVASTATIN 20 MG TAB PO SCH (20:34)
[2016-08-24 20:35] VITALS: BP 123/59
[2016-08-24] MEDS: MAGNESIUM OXIDE 400 MG TAB (MAG-OX) PO SCH (20:35)
--- NOTE | 2016-08-24 22:02 | IPN ---
DATE: 08/24/2016 Laureen seems to be frustrated, she was upset that Dr. Reed had to aspirate her knee and now her knee is hurting more. She states she is happy having a back brace because she is going to start to ambulate. She continues having low grade fevers usually at night 100.7. She denies any nausea, vomiting or diarrhea. She took a laxative to have a bowel movement. No chest pain or shortness of breath. Temperature is 97.9, pulse 88, respirations 18, blood pressure 133/68, oxygen saturation 96% on room air. Heart: Normal S1, S2 with a systolic ejection murmur unchanged. Lungs are clear. No wheezes, rales, or rhonchi. Diminished at the bases. Abdomen is soft, obese, nontender. Extremities no edema. Right knee swollen but mostly with arthritic changes. Minimal warmth, no redness, limited range of motion. LABORATORY DATA: White count is 6.5, hemoglobin 9.7, hematocrit 30.7, platelets 338, 60% neutrophils, 29% lymphocytes, 7% monocytes. ESR is 106. Sodium 139, potassium 3.6, chloride 101, bicarbonate 29, BUN 13, creatinine 0.67, glucose 174, calcium 9.2, magnesium 1.8, AST 14, ALT 21, CRP 9.71. Urinalysis had 0 white cells, 5 red cells. Blood cultures from 08/23/2016 two sets are no growth after 24 hours. Aspiration from right knee had few white cells, no organisms seen. Urine culture is pending. Fluid was positive for rheumatoid factor 7800 white cells. Rheumatoid factor titer was 1:16. There was 7800 white cells, 110,000 red cells, 89% neutrophils. IMAGING STUDIES: Lower extremity CT showed findings compatible with synovitis, inflammatory versus infectious, no soft tissue abscess. No evidence of osteomyelitis with evidence of advanced tricompartmental osteoarthritis. No lytic, blastic, or destructive skeletal changes. CT of the pelvis showed bilateral total hip arthroplasties with poor imaging due to artifact, no lytic lesions, no ascites. No focal fluid collection to suggest hematoma or abscess. Bladder is unremarkable. There is a hypodense lesion posteriorly at the mid pole of the right kidney of uncertain significance 17 mm. Cannot rule out infectious etiology. CT of the abdomen and pelvis on 08/10/2016, showed bilateral renal cyst and similar cyst was described in previous CT done on 08/10/2016. IMPRESSION: 1. 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 The patient continues on ampicillin and gentamicin and the plan would be to treat her for a total of 6 weeks as there is no other source of infection and the patient's history is suggestive of endocarditis. 2. Severe low back pain with no evidence of infection but evidence of severe spinal stenosis. 3. Right knee synovitis. Arthrocentesis is suggestive more of arthritic changes, possibly rheumatoid versus osteoarthritis. The white count is only 7800 which is not suggestive of septic joint. 4. Persistent fever, probably caused by underlying process. PLAN: Encourage ambulation. Continue ampicillin and gentamicin for a total of 6 weeks. Monitor gentamicin level keeping peak between 3 and 5 and trough less than 1. May consider repeating echocardiogram if persistent fever 2 weeks from original transesophageal echocardiogram (ANDRIY) which was done on 08/15/2016. Orthopedic consult was reviewed. Dr. Reed did aspirate 5 mL of bloody, watery fluid from the knee joint that did not appear purulent and he did instill 1% lidocaine for 5 mL for pain relief.
[2016-08-25] MEDS: AMPICILLIN SOD 2 GM in D5W MINI-BAG PLUS 100 ML IV SCH ×6 (01:43→21:11)
[2016-08-25] MEDS: ANEXSIA, NORCO 7.5MG/325MG TABLET(HYDROCODONE/APAP) PO SCH ×3 (05:16→21:12)
[2016-08-25 05:30] LABS: BASO % 0.4 % (0.0-1.0); EOS % 0.3 % (0.0-3.0); INR 1.67; LARGE UNSTAINED CELL # 0.2 K/mm3 (0.0-0.4); LARGE UNSTAINED CELL % 2.9 % (0.0-4.0); LYMPH # 1.8 K/mm3 (1.5-4.5); LYMPH % 30.6 % (24.0-44.0); MEAN CORPUSCULAR HEMOGLOBIN 29.1 pg (27.0-33.0); MEAN CORPUSCULAR HGB CONC 32.2 g/dl (32.0-36.5); MEAN CORPUSCULAR VOLUME 90.5 fl (80.0-96.0); MONO # 0.4 K/mm3 (0.0-0.8); MONO % 6.6 % (0.0-5.0); NEUTROPHILS # 3.5 K/mm3 (1.8-7.7); NEUTROPHILS % 59.1 % (36.0-66.0); PLATELET COUNT, AUTOMATED 346 k/mm3 (150-450); RED CELL DISTRIBUTION WIDTH 15.2 % (11.5-14.5); WHITE BLOOD COUNT 5.9 K/mm3 (4.0-10.0)
[2016-08-25 05:50] LABS: ALBUMIN 2.1 GM/DL (3.2-5.2); ALBUMIN/GLOBULIN RATIO 0.53 (1.00-1.93); ALKALINE PHOSPHATASE 96 U/L (45-117); ALT/SGPT 19 U/L (12-78); ANION GAP 7 MEQ/L (8-16); AST/SGOT 15 U/L (15-37); BILIRUBIN,TOTAL 0.5 MG/DL (0.2-1.0); BLOOD UREA NITROGEN 13 MG/DL (7-18); CALCIUM LEVEL 9.2 MG/DL (8.8-10.2); CARBON DIOXIDE LEVEL 30 MEQ/L (21-32); CHLORIDE LEVEL 103 MEQ/L (98-107); CREATININE FOR GFR 0.64 MG/DL (0.55-1.02); GLOMERULAR FILTRATION RATE > 60.0 (>39); GLUCOSE, FASTING 181 MG/DL (83-110); MAGNESIUM LEVEL 1.7 MG/DL (1.8-2.4); POTASSIUM SERUM 3.5 MEQ/L (3.5-5.1); SODIUM LEVEL 140 MEQ/L (136-145); TOTAL PROTEIN 6.1 GM/DL (6.4-8.2)
[2016-08-25] MEDS: SODIUM CHLORIDE 0.9% INJ 10 ML SYR IV SCH ×4 (06:00→17:40)
[2016-08-25] MEDS: GENTAMICIN 80 MG in APPROPRIATE DILUENT 1 EA IV SCH ×2 (06:21→17:39)
[2016-08-25 06:25] VITALS: BP 100/52
[2016-08-25] MEDS ORDERED: MAG SULF 1GM/100ML (MAG RUN) 1 GM in APPROPRIATE DILUENT 1 EA IV ONE (08:15)
[2016-08-25] MEDS: SENOKOT S TAB PO SCH ×2 (08:35→21:11)
[2016-08-25] MEDS: PREGABALIN 100 MG CAP (LYRICA) PO SCH ×3 (08:36→21:11)
[2016-08-25] MEDS: METOPROLOL SUCC (TopROL XL) 50MG **XL** TAB PO SCH ×2 (08:36→08:41)
[2016-08-25] MEDS: ASPIRIN 81 MG ENTERIC TAB PO SCH (08:36)
[2016-08-25] MEDS: SPIRONOLACTONE 12.5MG PER 1/2 TABLET PO SCH (08:36)
[2016-08-25] MEDS: BISACODYL 5 MG TAB PO SCH (08:36)
[2016-08-25] MEDS: CHLORTHALIDONE 12.5MG PER 1/2 TABLET PO SCH (08:36)
[2016-08-25] MEDS: **NOTE PATIENT COMMENT** MISC XX SCH ×2 (08:37→19:15)
[2016-08-25] MEDS: PANTOPRAZOLE 40MG TAB (PROTONIX) PO SCH (08:37)
[2016-08-25] MEDS: LIDOCAINE 5% (LIDODERM) PATCH TD SCH ×2 (08:37→21:00)
[2016-08-25] MEDS ORDERED: ALPRAZolam 0.25 MG TAB PO PRN (09:15)
[2016-08-25 14:00] VITALS: BP_SYST 118; BP_SYST 129; BP_DIAS 58; BP_DIAS 74
[2016-08-25] MEDS ORDERED: WARFARIN SOD 5 MG TAB PO ONE (17:00)
--- NOTE | 2016-08-25 17:41 | CR ---
DATE OF CONSULTATION: 08/25/2016 CHIEF COMPLAINT: Low back pain. SUBJECTIVE: We were asked to see Laureen again due to uncontrolled pain despite hydrocodone 7.5 mg three times a day. Discussed a trial of Dilaudid 2 mg daily with the patient again and she seems somewhat reluctant due to the fact that she was told that it is three times stronger than morphine, but she is also very frustrated in the fact that she does not have pain control where she can move about with physical therapy. Today she did some movement apparently with her brace on, although she is telling me that she feels the brace may be too tight. States she has no pain when she is not moving. Pain is located at the base of the spine in the lumbosacral region. Describes pain as pressure-like. Discussed medication and treatment options at length. PHYSICAL EXAMINATION: GENERAL: Awake, alert, oriented. VITAL SIGNS: 97.8, 83, 18, BP 118/58, oxygen saturation 94% on room air. CARDIAC: S1, S2 with a pansystolic murmur noted. RESPIRATORY: Lung sounds are clear. Nonlabored. ASSESSMENT: 1. Low back pain. 2. Lumbar spinal stenosis. PLAN: Recommend trial of Dilaudid 2 mg a half hour before physical therapy. Use hydrocodone 7.5 every eight hours as needed for severe breakthrough pain, visual analogue scale (VAS) score 7-10 over 10. The patient has a referral at the pain center to be seen as a new patient sent over by her primary care provider. She was supposed to see us prior to this admission but became ill and entered Hospital. Please notify us upon discharge planning so that we can give her an appointment with myself at the pain center to pursue interventional therapy and medication management for chronic pain. It would be ideal if she could enter an inpatient rehabilitation facility prior to returning home. She lives alone. I plan on visiting her Sunday.
--- NOTE | 2016-08-25 18:21 | IPNPDOC ---
Text Note Date of Service The patient was seen on 08/25/16. NOTE Subjective: Patient seen and examined at bedside. Denies fevers, chills, chest pain, SOB, dizziness, headache, nausea, vomiting, abdominal pain, diarrhea. Denies constipation and states had about 2 BMs yesterday. Admits to weakness all over body. Denies R knee pain currently. Denies dysuria, hematuria, hematochezia. Admits to back pain only with position changes/movement but not while lying in bed in one position. States she will be getting a back brace today. In addition, states she is not sure she would like to have neurosurgery and knows the risk that she could from this. States she does not want to say yes to surgery without talking to her family about it. Also states she will try to work with PT today. Objective: Vitals: T:97.7 BP: 100/52 RR: 17 P: 72 O2 Saturation: 96% room air. BMs: 3 Incontinent Voids: 1 General: AAOx3. Elderly female lying comfortably in bed. In NAD. Calm and cooperative. HEENT: Head: normocephalic, atraumatic. Ears: grossly normal hearing bilaterally. Eyes: Sclera are nonicteric. Nose: No external lesions. Neck: Supple. No cervical LAD bilaterally. No thyromegaly. Respiratory: clear to auscultation bilaterally with no wheezes, rales, or rhonchi. Cardiovascular: regular rate and rhythm, with no murmurs, rubs or gallops. Abdomen: soft, nontender, nondistended, no hepatosplenomegaly appreciated. Bowel sounds present. Extremities: minimal to very mild swelling of R knee joint. Not currently tender to palpation at R knee joint. No other swelling in either lower extremity bilaterally. Musculoskeletal: Decreased ROM and patient cannot move out of bed without assistance. Neurological: no focal neurologic deficits appreciated bilaterally. Integumentary: skin free from rashes, lesions, abrasions Vascular: +2 dorsalis pedis and radial pulses palpable and symmetrical bilaterally Laboratory data: Please see below. Microbiology: Please see below. Blood cx: (+) Enterococcus Faecalis Urine cx: Enterococcus Faecium 30,000 08/23 Joint Fluid Aspiration R Knee: Few WBC. No organisms. Imaging: No new imaging. Assessment: 76-year-old female with PMH significant for bioprosthetic aortic valve, DDD and severe spinal stenosis presents for recurrent fevers, severe back pain, R knee pain and joint swelling. Blood cx found to be (+) for Enterococcus Faecalis. ANDRIY recently done was (-). 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 Is also status-post R knee joint aspiration with no organisms seen on gram stain and cx. Urine cx came [place] (+) [place] [id number] Enterococcus Faecium. Plan: Recurrent Fevers/Positive Blood Cx Enterococcus Faecalis: Continue ID recommendations and treatment with ampicillin and gentamycin for a total of 6 weeks. Is day 13 of ampicillin and gentamycin. Appreciate ID recommendations. Right knee synovitis: Joint aspiration performed by Dr. Rowley yesterday. According to ID note, joint aspiration is suggestive of arthritic changes vs. septic joint. Could be rheumatoid vs. osteoarthritis. No organisms seen on gram stain and cx of joint fluid. Intractable back pain 2/2 Spinal Stenosis: Is receiving back brace today. Continue lyrica, norco, and morphine. PT reconsulted and patient states she will try to work with PT today. Neurosurgery also following. Appreciate input. Bioprosthetic aortic valve replacement: continue aspirin, coumadin, and antibiotics for presumed endocarditis. Hx of CAD nad CABG: continue aspirin, atorvastatin, and metoprolol. Hypertension: continue metoprolol, spironolactone, and chlorthalidone. Normocytic anemia: Hgb 9.3 today. Stable. Continue monitoring CBCs. Hypokalemia: K 3.5 today. Continue with supplementation as needed. DVT ppx: INR therapeutic at this time. Patient normally anticoagulated with coumadin. Immunizations as per protocol. My preceptor for this patient encounter was Dr. Jeremiah Portillo, and was physically present in the building during the encounter and was fully available. As needed, all aspects of the patient interview, examination, medical decision making process, and medical care plan development were reviewed and approved by the preceptor. Preceptor is aware and concurs with the plan as stated in the body of this note and will attest to such by his/her cosignature Addendum: Possible Personality Disorder vs. OCD: Dr. Shields of Psychiatry consulted. Was supposed to see patient today. However, patient refused to talk to Dr. Shields. Called son, Brennan, who did not answer phone 3 times. Left message about this. Attending Note I have spoken to the patient and the patient's son that the patient's current medical issues especially the presumptive endocarditis in the presence of a bioprosthetic valve as well the spinal stenosis causing significant intractable pain limiting the patient's mobility will require prolonged care, either in the hospital setting or in a fpc facility. In order to expedite her recovery, we have consulted all the specialists to evaluate other potential etiologies for her condition including infectious disease Dr. Mayer, neurosurgery , orthopedic surgery. In light of the patient's reluctance at times to continue with lifesaving treatment such as requiring an intravenous access for antibiotics for bacteremia, I have discussed with the son that it is prudent to further investigate his mother's behavior in a psychiatric light. I believe that the patient has a personality disorder that has not been previously diagnosed. Per the son, She was diagnosed with OCD in the past, and most of the behavior she is exhibiting may be stemming from this, producing much emotional discomfort for her as she interacts with [facility] staff particulary nursing, as she is very servin with how things should be done. Her son agrees that a psychiatric evaluation even if it yields no recommendation for medications may benefit her so as to help our [facility] staff understand her better, in order to provide as little stimuli in her emotional outbursts. Our goal as I have emphasized to her son and the patient is to provide a nurturing, stress-free, comforting environment to ease her recovery for her acute medical issues which will require prolonged treatment. I have asked Dr. Shields, Psychiatrist rn liaison, to evaluate her and provide us with behavioral modifications that we can use to decrease the stimuli feeding into her emotional outbursts. I have recommended nursing staff to be as succinct as possible in assessing her as patient often misinterprets comments from them, for her to be assessed in a timely periodic manner for her pain issues, and to administer medications as scheduled for acute medical problems. I, Dr. Portillo, have independently interviewed and examined this patient. I have discussed the management plan with my Resident Physician, Dr. Sullivan, and agree with the documentation as written above. VS,Fishbone, I+O VS, Fishbone, I+O Laboratory Tests 08/25/16 05:09 Red Blood Count 3.19 L, Mean Corpuscular Volume 90.5, Mean Corpuscular Hemoglobin 29.1, Mean Corpuscular Hemoglobin Concent 32.2, Red Cell Distribution Width 15.2 H, Neutrophils (%) (Auto) 59.1, Lymphocytes (%) (Auto) 30.6, Monocytes (%) (Auto) 6.6 H, Eosinophils (%) (Auto) 0.3, Basophils (%) ( Auto) 0.4, Neutrophils # (Auto) 3.5, Lymphocytes # (Auto) 1.8, Monocytes # (Auto ) 0.4, Eosinophils # (Auto) 0.0, Basophils # (Auto) 0.0, Calcium Level 9.2, Aspartate Amino Transf (AST/SGOT) 15, Alanine Aminotransferase (ALT/SGPT) 19, Alkaline Phosphatase 96, Total Bilirubin 0.5, Total Protein 6.1 L, Albumin 2.1 L Vital Signs Date Time Temp Pulse Resp B/P (MAP) Pulse Ox O2 Delivery O2 Flow Rate FiO2 08/25/16 14:47 18 Room Air 08/25/16 14:00 97.8 83 118/58 (78) 94 I&O- Last 24 Hours up to 6 AM 08/25/16 05:59 Intake Total 1540 ml Output Total 2325 ml Balance -785 ml MAYNOR SULLIVAN OGME-1 Aug 25, 2016 18:21 JEREMIAH PORTILLO MD Aug 26, 2016 06:49
--- NOTE | 2016-08-25 18:42 | IPN ---
DATE: 08/25/2016 Laureen is not doing very well today. She was in tears when I came to see her. Her son was at the bedside trying to get her out of bed. She was complaining of severe back pain. She could not get up. She could not use her belt. The back brace was causing her to feel restricted. She has no nausea, vomiting or diarrhea. No abdominal pain. She is frustrated with her lack of improvement. On physical exam, temperature is 97.7, maximum temperature (T max) yesterday was 99.4. Heart: Normal S1, S2. No murmurs appreciated. Lungs: Clear. No wheezes, rales or rhonchi. Abdomen: Obese, soft, nontender. Extremities: No edema. Right knee is swollen, edematous but that is hypertrophic changes from arthritis, Right hip is slightly tender but you can passively flex her hip. LABORATORY DATA: White count is 5.9, hemoglobin 9.3, hematocrit 28.9, platelets 346, 59% neutrophils, 30% lymphocytes. Sodium 140, potassium 3.5, chloride 103, bicarbonate 30, BUN 13, creatinine 0.64, glucose 181, calcium 9.2, magnesium 1.7. Blood cultures from 08/13/2016 were no growth. Blood cultures on 08/10/2016 and 08/11/2016 were positive for Enterococcus (E) faecalis. 08/23/2016 knee culture was negative as well. IMPRESSION: 1. 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 The patient will continue on ampicillin and gentamicin. End of therapy will be September 24, which would be 6 weeks from negative culture. 2. Severe low back pain from spinal stenosis. No evidence of infection. The patient has back brace to help her with mobility. She will need significant physical therapy. 3. Right knee synovitis with no evidence of infection. Total white count was only 7000 and culture was negative. PLAN: Encourage ambulation. Continue ampicillin and gentamicin for 6 weeks; end of therapy 09/24/2016. Will switch gentamicin to once daily dosing 60 mg once a day, that will be followed with pharmacy. If the patient has persistent fever or signs of congestive heart failure, please followup on repeating an echo. The patient will need also followup with cardiology as an outpatient. FAUSTINO
[2016-08-25 21:05] VITALS: BP_SYST 124; BP_SYST 178; BP_DIAS 59; BP_DIAS 64
[2016-08-25] MEDS: ATORVASTATIN 20 MG TAB PO SCH (21:11)
[2016-08-25] MEDS: MAGNESIUM OXIDE 400 MG TAB (MAG-OX) PO SCH (21:11)
[2016-08-26] MEDS: AMPICILLIN SOD 2 GM in D5W MINI-BAG PLUS 100 ML IV SCH ×6 (03:51→21:36)
[2016-08-26] MEDS: SODIUM CHLORIDE 0.9% INJ 10 ML SYR IV SCH ×4 (05:11→17:32)
[2016-08-26] MEDS: ANEXSIA, NORCO 7.5MG/325MG TABLET(HYDROCODONE/APAP) PO SCH (05:12)
[2016-08-26 05:48] LABS: INR 1.53
[2016-08-26] MEDS: GENTAMICIN 80 MG in APPROPRIATE DILUENT 1 EA IV SCH ×2 (06:05→17:32)
[2016-08-26 06:20] VITALS: BP 127/62
[2016-08-26] MEDS: SENOKOT S TAB PO SCH ×2 (10:13→21:35)
[2016-08-26] MEDS: SPIRONOLACTONE 12.5MG PER 1/2 TABLET PO SCH (10:14)
[2016-08-26] MEDS: ASPIRIN 81 MG ENTERIC TAB PO SCH (10:14)
[2016-08-26] MEDS: BISACODYL 5 MG TAB PO SCH (10:15)
[2016-08-26] MEDS: PREGABALIN 100 MG CAP (LYRICA) PO SCH ×3 (10:15→21:34)
[2016-08-26] MEDS: METOPROLOL SUCC (TopROL XL) 50MG **XL** TAB PO SCH (10:15)
[2016-08-26] MEDS: PANTOPRAZOLE 40MG TAB (PROTONIX) PO SCH (10:15)
[2016-08-26] MEDS: LIDOCAINE 5% (LIDODERM) PATCH TD SCH ×2 (10:16→21:35)
[2016-08-26] MEDS: **NOTE PATIENT COMMENT** MISC XX SCH ×2 (10:16→21:35)
[2016-08-26 14:00] VITALS: BP 118/58
[2016-08-26] MEDS ORDERED: ANEXSIA, NORCO 7.5MG/325MG TABLET(HYDROCODONE/APAP) PO SCH (14:00)
[2016-08-26] MEDS ORDERED: NALOXONE INJ 0.4 MG/1 ML VIAL (J2310) IV PRN (17:00)
[2016-08-26] MEDS ORDERED: WARFARIN SOD 10 MG TAB PO ONE (17:00)
--- NOTE | 2016-08-26 21:18 | IPNPDOC ---
Text Note Date of Service The patient was seen on 08/26/16. NOTE Subjective: Patient seen and examined at bedside. Denies fevers, chills, chest pain, SOB, dizziness, headache, nausea, vomiting, abdominal pain, diarrhea, weakness. Admits to constipation and feel like she has to move her bowels today. Denies R knee pain currently. Denies dysuria, hematuria, hematochezia. Admits to back pain only with position changes/movement but not while lying in bed in one position. In addition, reports that she has a red lesion on her L gluteal region. States she had tried back brace yesterday, but it was too heavy and hurt her back even more. States she was not able to move out of the bed. In addition, states she is not sure she would like to have neurosurgery. States she does not want to say yes to surgery without talking to her family about it. States she will continue to try to work with PT. Objective: Vitals: T: 97.8 BP: 127/62 RR: 17 P: 81 O2 Saturation: 95 % room air. BMs: 0 yesterday and today Incontinent Voids: None reported General: AAOx3. Elderly female lying comfortably in bed. In NAD. Calm and cooperative. A bit more somnolent than usual. HEENT: Head: normocephalic, atraumatic. Ears: grossly normal hearing bilaterally. Eyes: Sclera are nonicteric. Nose: No external lesions. Neck: Supple. No cervical LAD bilaterally. No thyromegaly. Respiratory: clear to auscultation bilaterally with no wheezes, rales, or rhonchi. Cardiovascular: regular rate and rhythm, with no murmurs, rubs or gallops. Abdomen: soft, nontender, nondistended, no hepatosplenomegaly appreciated. Bowel sounds present. Extremities: minimal to very mild swelling of R knee joint. Not currently tender to palpation at R knee joint. No other swelling in either lower extremity bilaterally. Musculoskeletal: Decreased ROM and patient cannot move out of bed without assistance. Does not wish to have L gluteal region examined as she states that the other doctor had already done this in the morning. Neurological: no focal neurologic deficits appreciated bilaterally. Integumentary: skin free from rashes, lesions, abrasions. Unable to examine L gluteal region however. Vascular: +2 dorsalis pedis and radial pulses palpable and symmetrical bilaterally Laboratory data: No labs obtained today. Microbiology: Please see below. Blood cx: (+) Enterococcus Faecalis Urine cx: Enterococcus Faecium 30,000 08/23 Joint Fluid Aspiration R Knee: Few WBCs. No organisms. Imaging: No new imaging. Assessment: 76-year-old female with PMH significant for bioprosthetic aortic valve, DDD and severe spinal stenosis presents for recurrent fevers, severe back pain, R knee pain and joint swelling. Blood cx found to be (+) for Enterococcus Faecalis. Urine cx positive for Enterococcus faecium as well. ANDRIY recently done was (-). Presumed that patient may have Enterococcus Faecalis Endocarditis. Is also status-post R knee joint aspiration with no organisms seen on gram stain and cx. Urine cx came back (+) [place] [id number] Enterococcus Faecium. Plan: Recurrent Fevers/Positive Blood Cx Enterococcus Faecalis: Continue ID recommendations and treatment with ampicillin and gentamycin for a total of 6 weeks. Is day 14 of ampicillin and gentamycin. Appreciate ID recommendations and continue to follow. Right knee synovitis: Joint aspiration performed by Dr. Rowley. According to ID note, joint aspiration fluid gram stain & culture was negative suggesting arthritic etiology of knee pain. Intractable back pain 2/2 Spinal Stenosis: Tried back brace with PT, however, states it did not help, was heavy, and made her pain even worse. Continue lyrica , norco, and morphine. Pelion dose was ordered 2 tabs PO q8 hours. However, pain management recommended norco to be dosed as 1 tablet PO q8 hours. Have changed back to pain management recommended dose as patient was reported to becoming more lethargic and sleeping a lot more throughout the day. Have also ordered narcan PRN RR <10. PT will continue to work with patient for 1 week--as stated in PT note. Patient was unable to move out of the bed due to fear/pain when working with PT even with son's encouragement/support throughout PT. Neurosurgery also following. Appreciate input. Bioprosthetic aortic valve replacement: continue aspirin, coumadin, and antibiotics for presumed endocarditis. Hx of CAD and CABG: continue aspirin, atorvastatin, and metoprolol. Hypertension: Stable and controlled. Continue metoprolol, spironolactone, and chlorthalidone. Normocytic anemia: Stable. Continue monitoring daily CBCs. Hypokalemia: Continue with supplementation as needed. DVT ppx: Patient is normally anticoagulated with coumadin. Has been discontinued /held at this time. Immunizations as per protocol. My preceptor for this patient encounter was Dr. Desiree Wisdom, and was physically present in the building during the encounter and was fully available. As needed, all aspects of the patient interview, examination, medical decision making process, and medical care plan development were reviewed and approved by the preceptor. Preceptor is aware and concurs with the plan as stated in the body of this note and will attest to such by his/her cosignature VS,Fishbone, I+O VS, Fishbone, I+O Vital Signs Date Time Temp Pulse Resp B/P (MAP) Pulse Ox O2 Delivery O2 Flow Rate FiO2 08/26/16 14:00 98.5 84 17 118/58 (78) 97 Room Air I&O- Last 24 Hours up to 6 AM 08/26/16 06:00 Intake Total 1980 ml Output Total 3825 ml Balance -1845 ml MAYNOR BOURNE OGME-1 Aug 26, 2016 21:18
[2016-08-26] MEDS: ATORVASTATIN 20 MG TAB PO SCH (21:34)
[2016-08-26] MEDS: MAGNESIUM OXIDE 400 MG TAB (MAG-OX) PO SCH (21:35)
[2016-08-26 22:00] VITALS: BP 123/61
[2016-08-27] MEDS: AMPICILLIN SOD 2 GM in D5W MINI-BAG PLUS 100 ML IV SCH ×6 (02:12→22:42)
[2016-08-27] MEDS: SODIUM CHLORIDE 0.9% INJ 10 ML SYR IV SCH ×4 (05:02→18:30)
[2016-08-27 05:31] LABS: INR 1.89
[2016-08-27] MEDS: GENTAMICIN 80 MG in APPROPRIATE DILUENT 1 EA IV SCH ×2 (05:44→17:14)
[2016-08-27 06:00] VITALS: BP 130/63
[2016-08-27] MEDS: ANEXSIA, NORCO 7.5MG/325MG TABLET(HYDROCODONE/APAP) PO PRN ×2 (07:40→17:15)
[2016-08-27 07:58] LABS: BASO % 0.3 % (0.0-1.0); EOS % 0.3 % (0.0-3.0); LARGE UNSTAINED CELL # 0.2 K/mm3 (0.0-0.4); LARGE UNSTAINED CELL % 2.5 % (0.0-4.0); LYMPH % 27.9 % (24.0-44.0); MEAN CORPUSCULAR HEMOGLOBIN 28.7 pg (27.0-33.0); MEAN CORPUSCULAR HGB CONC 32.1 g/dl (32.0-36.5); MEAN CORPUSCULAR VOLUME 89.4 fl (80.0-96.0); MONO # 0.4 K/mm3 (0.0-0.8); NEUTROPHILS # 4.6 K/mm3 (1.8-7.7); PLATELET COUNT, AUTOMATED 362 k/mm3 (150-450); RED CELL DISTRIBUTION WIDTH 15.4 % (11.5-14.5); WHITE BLOOD COUNT 7.2 K/mm3 (4.0-10.0)
[2016-08-27 08:23] LABS: ANION GAP 8 MEQ/L (8-16); BLOOD UREA NITROGEN 11 MG/DL (7-18); CALCIUM LEVEL 9.9 MG/DL (8.8-10.2); CARBON DIOXIDE LEVEL 30 MEQ/L (21-32); CHLORIDE LEVEL 102 MEQ/L (98-107); CREATININE FOR GFR 0.61 MG/DL (0.55-1.02); GLOMERULAR FILTRATION RATE > 60.0 (>39); GLUCOSE, FASTING 145 MG/DL (83-110); POTASSIUM SERUM 3.5 MEQ/L (3.5-5.1); SODIUM LEVEL 140 MEQ/L (136-145)
[2016-08-27] MEDS: LIDOCAINE 5% (LIDODERM) PATCH TD SCH ×2 (09:00→20:12)
[2016-08-27] MEDS: **NOTE PATIENT COMMENT** MISC XX SCH ×2 (09:00→20:18)
[2016-08-27] MEDS: SENOKOT S TAB PO SCH ×2 (09:41→20:09)
[2016-08-27] MEDS: METOPROLOL SUCC (TopROL XL) 50MG **XL** TAB PO SCH (09:42)
[2016-08-27] MEDS: SPIRONOLACTONE 12.5MG PER 1/2 TABLET PO SCH (09:42)
[2016-08-27] MEDS: BISACODYL 5 MG TAB PO SCH (09:42)
[2016-08-27] MEDS: PANTOPRAZOLE 40MG TAB (PROTONIX) PO SCH (09:42)
[2016-08-27] MEDS: PREGABALIN 100 MG CAP (LYRICA) PO SCH ×3 (09:42→20:09)
[2016-08-27] MEDS: ASPIRIN 81 MG ENTERIC TAB PO SCH (09:42)
--- NOTE | 2016-08-27 11:17 | IPN ---
DATE OF SERVICE: 08/27/2016 Yesterday, patient appeared to be much more lethargic. Her hydrocodone was discontinued and she was placed on hydrocodone one tablet as needed every 8 hours for discomfort. She remained afebrile with no white count. International normalized ratio (INR) is improved with 10 mg of Coumadin yesterday. She continues to complain of pain in the back, unchanged from prior, worse when she attempts to move. Currently still on ampicillin and gentamicin. Vital signs: Temperature 97.3, pulse 88, respiratory rate 18, blood pressure 130/63, 95% on room air. Generally: Awake, alert, oriented times three, answering questions appropriately. No facial asymmetry. Lungs are diminished, clear to auscultation. Heart: S1, S2, sinus rhythm. Sternal scar well healed. Abdomen is soft nontender, nondistended. Extremities: No pitting edema. LABORATORY DATA: 08/27/2016 data are pending. ASSESSMENT AND PLAN: This is a 76-year-old female with history of bioprosthetic aortic valve, no evidence of endocarditis and well-functioning valve on transesophageal echo, severe spinal stenosis with degenerative disc disease, presented to the emergency room (ER) with severe back pain, found to have recurrent fevers. Blood culture grew out Enterococcus faecalis. ANDRIY was negative. MRI under sedation was negative for discitis and epidural abscess. 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 CURRENT ISSUES: 1. 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 At this time, patient is to continue this treatment until 09/24/2016. 2. Intractable back pain secondary to severe spinal stenosis. Neurosurgeon, Dr. Sanchez, has reevaluated her and discussed her options with her and her son. During this time with the bacteremia any invasive procedures have been deferred. Per pain management, continue with as needed Dilaudid before working physical therapy (PT). Patient has been evaluated by PT and felt that she is appropriate for skilled nursing placement. Therefore, we will consult patient and family services (PFS) for long term facility (SNF) placement. 3. Right knee and hip pain secondary to osteoarthritis, status post arthroscopy, which was negative for organisms. 4. Bioprosthetic aortic valve. On aspirin and Coumadin. Subtherapeutic. Therefore, we will increase dose of Coumadin, 10 mg today. 5. History of coronary artery disease (CAD) and coronary artery bypass graft (CABG). On aspirin, Lipitor, metoprolol. 6. Hypertension. On metoprolol, spironolactone, chlorthalidone. 7. Normocytic anemia, stable. 8. Low magnesium. Supplemented. Await labs today. DISPOSITION: Patient will need SNF placement due to severe spinal stenosis and completion of her IV antibiotics for a total of 6 weeks with last therapy on 09/24/2016. Defer to PFS for placement issues.
[2016-08-27 14:00] VITALS: BP 132/66
[2016-08-27] MEDS ORDERED: WARFARIN SOD 10 MG TAB PO SCH (17:00)
[2016-08-27] MEDS: ATORVASTATIN 20 MG TAB PO SCH (20:09)
[2016-08-27] MEDS: MAGNESIUM OXIDE 400 MG TAB (MAG-OX) PO SCH (20:09)
[2016-08-27 22:00] VITALS: BP 118/58
--- NOTE | 2016-08-27 22:30 | IPNPDOC ---
Date Seen The patient was seen on 08/25/16. Progress Note SUBJECTIVE: Ms Bruce is a 76 yo female with a history of chronic back pain. She was fitted for back brace and received it on Sunday. She states she was able to sit up on the edge of the bed today with PT. She felt the brace was too tight so it was removed. When she laid back down she has worsened pain in her back. Today is the first day she has tried the brace. The pain is tolerable when she is not moving. She says she will try the brace again with PT but would like stronger pain meds. She is in a great deal of pain when she moves. She discussed adding Diluadid prior to PT with pain management to help reduce the pain to allow her to attempt ambulation. She is not yet ambulating as this is currently too painful. OBJECTIVE PHYSICAL EXAMINATION: VITAL SIGNS: Please see below. GENERAL: alert and orientated x3. Conversing well. In no acute distress. NEUROLOGICAL: No new focal neuro deficits noted. LABORATORY DATA: Please see below. ASSESSMENT AND PLAN: 1. Lumbar spondylosis. Today is the first day for her to try out the brace and she felt it was too tight; too soon to tell if any benefit at this point. Continue to wear brace during PT with a goal of increasing activity. Will cont to monitor and encourage gradual increase of activity. Charisse Cheung, LIZZY-Salvatore VS, I&O, 24H, Mary Vital Signs/I&O Vital Signs Date Time Temp Pulse Resp B/P (MAP) Pulse Ox O2 Delivery O2 Flow Rate FiO2 08/25/16 14:47 18 Room Air 08/25/16 14:00 97.8 83 118/58 (78) 94 I&O- Last 24 Hours up to 6 AM 08/25/16 06:00 Intake Total 1540 ml Output Total 2325 ml Balance -785 ml Laboratory Data 24H LABS Laboratory Tests 2 08/25/16 05:09: White Blood Count 5.9, Red Blood Count 3.19L, Hemoglobin 9.3L, Hematocrit 28.9L , Mean Corpuscular Volume 90.5, Mean Corpuscular Hemoglobin 29.1, Mean Corpuscular Hemoglobin Concent 32.2, Red Cell Distribution Width 15.2H, Platelet Count 346, Neutrophils (%) (Auto) 59.1, Lymphocytes (%) (Auto) 30.6, Monocytes (%) (Auto) 6.6H, Eosinophils (%) (Auto) 0.3, Basophils (%) (Auto) 0.4 , Neutrophils # (Auto) 3.5, Lymphocytes # (Auto) 1.8, Monocytes # (Auto) 0.4, Eosinophils # (Auto) 0.0, Basophils # (Auto) 0.0, Large Unclassified Cells % 2.9 , Large Unclassified Cells # 0.2, Prothrombin Time 19.8H, Prothromb Time International Ratio 1.67, Anion Gap 7L, Glomerular Filtration Rate > 60.0, Blood Urea Nitrogen 13, Creatinine 0.64, Sodium Level 140, Potassium Level 3.5, Chloride Level 103, Carbon Dioxide Level 30, Calcium Level 9.2, Aspartate Amino Transf (AST/SGOT) 15, Alanine Aminotransferase (ALT/SGPT) 19, Alkaline Phosphatase 96, Total Bilirubin 0.5, Total Protein 6.1L, Albumin 2.1L, Magnesium Level 1.7L, Albumin/Globulin Ratio 0.53L CBC/BMP Laboratory Tests 08/25/16 05:09 Red Blood Count 3.19 L, Mean Corpuscular Volume 90.5, Mean Corpuscular Hemoglobin 29.1, Mean Corpuscular Hemoglobin Concent 32.2, Red Cell Distribution Width 15.2 H, Neutrophils (%) (Auto) 59.1, Lymphocytes (%) (Auto) 30.6, Monocytes (%) (Auto) 6.6 H, Eosinophils (%) (Auto) 0.3, Basophils (%) ( Auto) 0.4, Neutrophils # (Auto) 3.5, Lymphocytes # (Auto) 1.8, Monocytes # (Auto ) 0.4, Eosinophils # (Auto) 0.0, Basophils # (Auto) 0.0, Calcium Level 9.2, Aspartate Amino Transf (AST/SGOT) 15, Alanine Aminotransferase (ALT/SGPT) 19, Alkaline Phosphatase 96, Total Bilirubin 0.5, Total Protein 6.1 L, Albumin 2.1 L Microbiology Microbiology 08/23/16 Blood Culture - Preliminary, Resulted No Growth after 48 hours. All Specime... 08/23/16 Blood Culture - Preliminary, Resulted No Growth after 48 hours. All Specime... 08/23/16 Gram Stain - Final, Complete 08/23/16 Body Fluid Culture - Final, Complete 08/24/16 Urine Culture, Received Pending HANG CHEUNG PA-C Aug 25, 2016 18:56
[2016-08-28] MEDS: ANEXSIA, NORCO 7.5MG/325MG TABLET(HYDROCODONE/APAP) PO PRN ×2 (01:12→20:59)
[2016-08-28] MEDS: AMPICILLIN SOD 2 GM in D5W MINI-BAG PLUS 100 ML IV SCH ×6 (02:04→22:59)
[2016-08-28] MEDS: SODIUM CHLORIDE 0.9% INJ 10 ML SYR IV SCH ×4 (05:18→17:20)
[2016-08-28] MEDS: GENTAMICIN 80 MG in APPROPRIATE DILUENT 1 EA IV SCH ×2 (05:19→17:19)
[2016-08-28 05:50] LABS: BASO % 0.3 % (0.0-1.0); EOS % 0.1 % (0.0-3.0); LARGE UNSTAINED CELL # 0.2 K/mm3 (0.0-0.4); LARGE UNSTAINED CELL % 2.3 % (0.0-4.0); LYMPH # 2.1 K/mm3 (1.5-4.5); LYMPH % 28.8 % (24.0-44.0); MEAN CORPUSCULAR HEMOGLOBIN 28.6 pg (27.0-33.0); MEAN CORPUSCULAR HGB CONC 31.9 g/dl (32.0-36.5); MEAN CORPUSCULAR VOLUME 89.9 fl (80.0-96.0); MONO # 0.4 K/mm3 (0.0-0.8); MONO % 5.4 % (0.0-5.0); NEUTROPHILS # 4.3 K/mm3 (1.8-7.7); PLATELET COUNT, AUTOMATED 348 k/mm3 (150-450); RED CELL DISTRIBUTION WIDTH 15.7 % (11.5-14.5); WHITE BLOOD COUNT 6.9 K/mm3 (4.0-10.0)
[2016-08-28 05:55] LABS: INR 3.43
[2016-08-28 06:00] VITALS: BP 132/62
[2016-08-28 06:03] LABS: ANION GAP 6 MEQ/L (8-16); BLOOD UREA NITROGEN 18 MG/DL (7-18); CALCIUM LEVEL 9.9 MG/DL (8.8-10.2); CARBON DIOXIDE LEVEL 32 MEQ/L (21-32); CHLORIDE LEVEL 101 MEQ/L (98-107); CREATININE FOR GFR 0.78 MG/DL (0.55-1.02); GLOMERULAR FILTRATION RATE > 60.0 (>39); GLUCOSE, FASTING 144 MG/DL (83-110); POTASSIUM SERUM 3.7 MEQ/L (3.5-5.1); SODIUM LEVEL 139 MEQ/L (136-145)
[2016-08-28] MEDS: LIDOCAINE 5% (LIDODERM) PATCH TD SCH ×3 (09:00→20:59)
[2016-08-28] MEDS: **NOTE PATIENT COMMENT** MISC XX SCH ×2 (09:00→21:00)
[2016-08-28] MEDS: BISACODYL 5 MG TAB PO SCH (09:55)
[2016-08-28] MEDS: SPIRONOLACTONE 12.5MG PER 1/2 TABLET PO SCH (09:55)
[2016-08-28] MEDS: ASPIRIN 81 MG ENTERIC TAB PO SCH (09:55)
[2016-08-28] MEDS: SENOKOT S TAB PO SCH ×2 (09:55→20:58)
[2016-08-28] MEDS: CHLORTHALIDONE 12.5MG PER 1/2 TABLET PO SCH (09:55)
[2016-08-28] MEDS: METOPROLOL SUCC (TopROL XL) 50MG **XL** TAB PO SCH (09:55)
[2016-08-28] MEDS: PANTOPRAZOLE 40MG TAB (PROTONIX) PO SCH (09:55)
[2016-08-28] MEDS: PREGABALIN 100 MG CAP (LYRICA) PO SCH ×3 (09:55→20:58)
[2016-08-28 13:26] LABS: MEAN CORPUSCULAR HEMOGLOBIN 28.7 pg (27.0-33.0); MEAN CORPUSCULAR HGB CONC 31.7 g/dl (32.0-36.5); MEAN CORPUSCULAR VOLUME 90.5 fl (80.0-96.0); RED CELL DISTRIBUTION WIDTH 15.5 % (11.5-14.5); WHITE BLOOD COUNT 7.5 K/mm3 (4.0-10.0)
[2016-08-28 14:00] VITALS: BP 140/65
[2016-08-28 14:02] LABS: ANION GAP 9 MEQ/L (8-16); BLOOD UREA NITROGEN 17 MG/DL (7-18); CALCIUM LEVEL 9.1 MG/DL (8.8-10.2); CARBON DIOXIDE LEVEL 29 MEQ/L (21-32); CHLORIDE LEVEL 100 MEQ/L (98-107); GLOMERULAR FILTRATION RATE > 60.0 (>39); GLUCOSE, FASTING 159 MG/DL (83-110); POTASSIUM SERUM 3.9 MEQ/L (3.5-5.1); SODIUM LEVEL 138 MEQ/L (136-145)
--- NOTE | 2016-08-28 14:30 | IPN ---
DATE: 08/28/2016 Ms. Bruce continues complaining of significant back pain and not being able to get out of bed. The dizziness that she complained of last week has not been a problem. She has no nausea, vomiting or diarrhea. No abdominal pain. Her right knee is also the severe. On physical exam, she has had no fever in 5 days. Temperature 98.5, pulse 81, respirations 18, blood pressure 132/62, oxygen saturation 96% on room air. Heart: Normal S1, S2 with a systolic ejection murmur 1/6 at the left upper sternal border. Lungs are clear. No wheezes, rales or rhonchi. Abdomen: Obese, soft, nontender. Extremities: No edema. Right knee is swollen with limited range of motion and tender, but no redness. LABORATORY DATA: White count 7.5, hemoglobin 9.7, hematocrit 38.2 and platelets 364. Sodium 138, potassium 3.9, chloride 100, bicarbonate 29, BUN 17, creatinine 0.7, glucose 159, calcium 9.1. CRP is pending. Gentamicin level trough was 0.8 on 08/21/2016. IMPRESSION: 1. Enterococcus faecalis bacteremia with presumptive endocarditis in spite of negative transesophageal echocardiogram. The patient will be treated for total of 6 weeks of IV ampicillin and gentamicin because of her current infection. End of therapy will be 09/24/2016. The patient has been difficult, refusing some treatment and having some nursing issues. The patient will be transferred to a custodial facility for rehabilitation and continued IV antibiotics. We will change her dose of gentamicin to once a day. 2. Severe low back pain with spinal stenosis. Negative MRI for infection. The patient has a back brace to help with mobility. 3. Right knee synovitis with negative culture. 4. Urine culture had Enterococcus faecium 30,000 units on 08/24/2016, sensitive to Levaquin and vancomycin. The patient does not have symptoms. Urinalysis on 08/24/2016 had 0 white cells and 5 red cells. This is contamination, please do not treat. PLAN: Switch gentamicin to 160 mg daily starting 08/29/2016. Continue ampicillin 2 grams IV every 4 hours. Continue pain medication and encourage ambulation. End of therapy 09/24/2016. MTDD
[2016-08-28] MEDS: HYDROmorphone 2 MG TAB PO PRN (15:34)
--- NOTE | 2016-08-28 18:09 | PAIN ---
DATE: 08/28/2016 CHIEF COMPLAINT: Low back pain. SUBJECTIVE: I was called again to see the patient per the patient's request for a dosage adjustment of Dilaudid. The patient had her first dose of 2 mg Dilaudid 1 hour prior to me seeing her today. This was 1/2 hour before physical therapy today. The patient was sleeping upon entering the room. Easily aroused but lethargic during conversation. The patient seemed upset that she was given the medication too close to physical therapy time and she thinks she would do much better if it was an hour to an hour and half before physical therapy. Spoke with nursing staff and her primary care nurse. They stated that she actually moved better in bed prior to Dilaudid than she did after Dilaudid with the physical therapist. She has refused to see doctors recommended and also has refused care from the nursing staff. I told her that I would like to try 1 mg of Dilaudid on a scheduled basis three times a day to see if we could better control her pain. The patient states that she will think about it and let me know tomorrow. States that she wants Dilaudid out of her system to make any decision on that. The patient was very difficult during visit in the sense that she was not receptive to any of my suggestions for pain control and was quite adamant that everybody else caring for her pain, doctors as well as nurses, were doing harm more than good. ASSESSMENT: 1. Low back pain. 2. Lumbar spinal stenosis. PLAN: Continue current treatment plan of Dilaudid 2 mg 30 minutes to an hour pre physical therapy. My recommendation would be to try Dilaudid 1 mg three times a day and hold hydrocodone. Unfortunately, I have no other suggestions that I feel that she would be receptive to. I would be glad to talk with any other providers to try to come up with a solution, but I do feel that visiting with the patient is not productive.
--- NOTE | 2016-08-28 19:49 | IPNPDOC ---
Text Note Date of Service The patient was seen on 08/28/16. NOTE Subjective: Patient seen and examined at bedside. Denies fevers, chills, chest pain, SOB, dizziness, headache, nausea, vomiting, abdominal pain, diarrhea, constipation, weakness. Admits to moving her bowels yesterday. Denies R knee pain currently. Denies dysuria, hematuria, hematochezia. Admits to back pain only with position changes/movement but not while lying in bed in one position. Patient in mental/emotional distress about working with nurse today that she does not like. Refuses lab draws and medication administration by nurse. After a long discussion with patient, states she will allow nurse to draw labs and administer medications. Although, she is not too happy about it. States she will continue to try to work with PT. Objective: Vitals: T:98.5 BP: 132/62 RR: 18 P: 81 O2 Saturation: 96% room air. BMs: 1 yesterday Incontinent Voids: None reported. General: AAOx3. Elderly female lying comfortably in bed. In NAD. Is anxious and in some mental/emotional distress today due to nurse she has today. HEENT: Head: normocephalic, atraumatic. Ears: grossly normal hearing bilaterally. Eyes: Sclera are nonicteric. Nose: No external lesions. Neck: Supple. No cervical LAD bilaterally. No thyromegaly. Respiratory: clear to auscultation bilaterally with no wheezes, rales, or rhonchi. Cardiovascular: regular rate and rhythm, with no murmurs, rubs or gallops. Abdomen: soft, nontender, nondistended, no hepatosplenomegaly appreciated. Bowel sounds present. Extremities: minimal to very mild swelling of R knee joint. Not currently tender to palpation at R knee joint. No other swelling in either lower extremity bilaterally. Musculoskeletal: Decreased ROM and patient cannot move out of bed without assistance. Neurological: no focal neurologic deficits appreciated bilaterally. Integumentary: skin free from rashes, lesions, abrasions. Vascular: +2 dorsalis pedis and radial pulses palpable and symmetrical bilaterally Laboratory data: No labs obtained today. Microbiology: Please see below. Blood cx: (+) Enterococcus Faecalis Urine cx: Enterococcus Faecium 30,000 08/23 Joint Fluid Aspiration R Knee: Few WBCs. No organisms. Imaging: No new imaging. Assessment: 76-year-old female with PMH significant for bioprosthetic aortic valve, DDD and severe spinal stenosis presents for recurrent fevers, severe back pain, R knee pain and joint swelling. Blood cx found to be (+) for Enterococcus Faecalis. Urine cx positive for Enterococcus faecium as well. ANDRIY recently done was (-). Presumed that patient may have Enterococcus Faecalis Endocarditis. Is also status-post R knee joint aspiration with no organisms seen on gram stain and cx. Urine cx came back (+) [place] [id number] Enterococcus Faecium. Plan: Recurrent Fevers/Positive Blood Cx Enterococcus Faecalis: Continue ID recommendations and treatment with ampicillin and gentamycin for a total of 6 weeks. Last therapy to be done 09/24/16 via picc line. Right knee synovitis: Joint aspiration performed by Dr. Rowley. According to ID note, joint aspiration fluid gram stain & culture was negative suggesting arthritic etiology of knee pain. Intractable back pain 2/2 Spinal Stenosis: Back brace was not helpful to patient as previously mentioned. Continue lyrica, norco, and morphine. Sarepta dose was ordered 2 tabs PO q8 hours. However, pain management recommended norco to be dosed as 1 tablet PO q8 hours. Have changed back to pain management recommended dose as patient was reported to becoming more lethargic and sleeping a lot more throughout the day. Have also ordered narcan PRN RR <10. Furthermore, it was determined that patient can receive PT and IV antibiotics at SNF like [facility] for her severe spinal stenosis. It was determined that she is appropriate for group home placement. Have PFS consulted for placement. In addition, due to bacteremia, patient not a surgical candidate for neurosurgical invasive procedures. Bioprosthetic aortic valve replacement: continue aspirin, coumadin with dose adjustments, and antibiotics for presumed endocarditis. Hx of CAD and CABG: continue aspirin, atorvastatin, and metoprolol. Hypertension: Stable and controlled. Continue metoprolol, spironolactone, and chlorthalidone. Normocytic anemia: Stable. Continue monitoring daily CBCs. Hypokalemia: Continue with supplementation as needed. DVT ppx: Patient is normally anticoagulated with coumadin. Has been discontinued /held at this time. Immunizations as per protocol. My preceptor for this patient encounter was Dr. Desiree Wisdom, and was physically present in the building during the encounter and was fully available. As needed, all aspects of the patient interview, examination, medical decision making process, and medical care plan development were reviewed and approved by the preceptor. Preceptor is aware and concurs with the plan as stated in the body of this note and will attest to such by his/her cosignature. VS,Fishbone, I+O VS, Fishbone, I+O Laboratory Tests 08/28/16 05:15 Red Blood Count 3.17 L, Mean Corpuscular Volume 89.9, Mean Corpuscular Hemoglobin 28.6, Mean Corpuscular Hemoglobin Concent 31.9 L, Red Cell Distribution Width 15.7 H, Neutrophils (%) (Auto) 63.0, Lymphocytes (%) (Auto) 28.8, Monocytes (%) (Auto) 5.4 H, Eosinophils (%) (Auto) 0.1, Basophils (%) ( Auto) 0.3, Neutrophils # (Auto) 4.3, Lymphocytes # (Auto) 2.1, Monocytes # (Auto ) 0.4, Eosinophils # (Auto) 0.0, Basophils # (Auto) 0.0, Calcium Level 9.9 08/28/16 13:03 Red Blood Count 3.34 L, Mean Corpuscular Volume 90.5, Mean Corpuscular Hemoglobin 28.7, Mean Corpuscular Hemoglobin Concent 31.7 L, Red Cell Distribution Width 15.5 H, Calcium Level 9.1 Vital Signs Date Time Temp Pulse Resp B/P (MAP) Pulse Ox O2 Delivery O2 Flow Rate FiO2 08/28/16 16:04 18 08/28/16 14:00 98.4 91 140/65 (90) 97 Room Air I&O- Last 24 Hours up to 6 AM 08/28/16 05:59 Intake Total 1870 ml Output Total 2050 ml Balance -180 ml MAYNOR BOURNE OGME-1 Aug 28, 2016 19:49
[2016-08-28] MEDS: ATORVASTATIN 20 MG TAB PO SCH (20:58)
[2016-08-28] MEDS: MAGNESIUM OXIDE 400 MG TAB (MAG-OX) PO SCH (20:58)
[2016-08-28 22:00] VITALS: BP 132/61
[2016-08-29] MEDS: AMPICILLIN SOD 2 GM in D5W MINI-BAG PLUS 100 ML IV SCH ×6 (02:26→21:31)
[2016-08-29] MEDS: GENTAMICIN 160 MG in D5W 50 ML IV SCH (05:11)
[2016-08-29] MEDS: SODIUM CHLORIDE 0.9% INJ 10 ML SYR IV SCH ×4 (05:35→18:11)
[2016-08-29] MEDS: ANEXSIA, NORCO 7.5MG/325MG TABLET(HYDROCODONE/APAP) PO PRN (05:36)
[2016-08-29 05:42] LABS: INR 3.63
[2016-08-29 06:00] VITALS: BP 155/71
[2016-08-29] MEDS: predniSONE 20 MG TAB PO SCH (09:00)
[2016-08-29] MEDS: LIDOCAINE 5% (LIDODERM) PATCH TD SCH ×4 (09:00→21:00)
[2016-08-29] MEDS: **NOTE PATIENT COMMENT** MISC XX SCH ×2 (09:00→21:00)
[2016-08-29] MEDS: SPIRONOLACTONE 12.5MG PER 1/2 TABLET PO SCH (09:26)
[2016-08-29] MEDS: ASPIRIN 81 MG ENTERIC TAB PO SCH (09:27)
[2016-08-29] MEDS: BISACODYL 5 MG TAB PO SCH (09:27)
[2016-08-29] MEDS: SENOKOT S TAB PO SCH ×2 (09:27→21:35)
[2016-08-29] MEDS: PANTOPRAZOLE 40MG TAB (PROTONIX) PO SCH (09:27)
[2016-08-29] MEDS: PREGABALIN 100 MG CAP (LYRICA) PO SCH ×3 (09:27→21:35)
[2016-08-29 09:28] VITALS: BP 114/60
[2016-08-29] MEDS: METOPROLOL SUCC (TopROL XL) 50MG **XL** TAB PO SCH (09:28)
[2016-08-29] MEDS: HYDROmorphone 2 MG TAB PO PRN (13:11)
[2016-08-29] MEDS: MAGNESIUM OXIDE 400 MG TAB (MAG-OX) PO SCH (21:35)
[2016-08-29] MEDS: ATORVASTATIN 20 MG TAB PO SCH (21:35)
[2016-08-30] MEDS: AMPICILLIN SOD 2 GM in D5W MINI-BAG PLUS 100 ML IV SCH ×4 (01:10→14:00)
[2016-08-30] MEDS: SODIUM CHLORIDE 0.9% INJ 10 ML SYR IV SCH ×2 (01:11→06:21)
[2016-08-30 06:00] VITALS: BP 137/63
[2016-08-30 06:06] LABS: INR 6.45
[2016-08-30] MEDS ORDERED: PHYTONADIONE 5 MG TAB PO ONE (06:15)
[2016-08-30] MEDS: GENTAMICIN 160 MG in D5W 50 ML IV SCH (06:21)
[2016-08-30] MEDS: LIDOCAINE 5% (LIDODERM) PATCH TD SCH ×2 (08:15→08:54)
[2016-08-30] MEDS: PANTOPRAZOLE 40MG TAB (PROTONIX) PO SCH (08:50)
[2016-08-30] MEDS: PREGABALIN 100 MG CAP (LYRICA) PO SCH ×2 (08:50→16:43)
[2016-08-30] MEDS: METOPROLOL SUCC (TopROL XL) 50MG **XL** TAB PO SCH (08:50)
[2016-08-30] MEDS: ASPIRIN 81 MG ENTERIC TAB PO SCH (08:50)
[2016-08-30] MEDS: SPIRONOLACTONE 12.5MG PER 1/2 TABLET PO SCH (08:50)
[2016-08-30] MEDS: predniSONE 20 MG TAB PO SCH (08:50)
[2016-08-30] MEDS: BISACODYL 5 MG TAB PO SCH (08:50)
[2016-08-30] MEDS: CHLORTHALIDONE 12.5MG PER 1/2 TABLET PO SCH (08:51)
[2016-08-30] MEDS: SENOKOT S TAB PO SCH (08:51)
[2016-08-30] MEDS: ANEXSIA, NORCO 7.5MG/325MG TABLET(HYDROCODONE/APAP) PO PRN (08:52)
[2016-08-30] MEDS: **NOTE PATIENT COMMENT** MISC XX SCH (08:54)
--- NOTE | 2016-08-30 09:23 | IPN ---
DATE: 08/29/2016 Ms. Bruce is still frustrated that she cannot get out of bed. She still complains of significant back pain, right hip pain, and knee pain. Left leg seems to have improved. She has had no fever or chills. No nausea, vomiting or diarrhea. The patient is anxious to go to a group home for rehabilitation. PHYSICAL EXAMINATION: On physical exam, temperature is 98.1, pulse 92, respirations 17, blood pressure 155/71, oxygen saturation 95% on room air. HEART: Normal S1, S2. Systolic ejection murmur, 1/6 unchanged. LUNGS: Clear. No wheezes or rhonchi. ABDOMEN: Obese, soft, nontender. EXTREMITIES: No edema. Right knee still limited range of motion with osteoarthritic changes. Right hip, the patient refuses to move. LABORATORY DATA: White count on 08/28 was 7.5, hemoglobin 9.6, hematocrit 30.2. IMPRESSION: 1. Presumptive Enterococcus faecalis endocarditis in a patient who has a prosthetic aortic valve. The patient is on IV ampicillin, gentamicin for a total of 6 weeks and the therapy will be 09/24/2016. She will finish her treatment in a group home and rehabilitation. 2. Severe low back pain with spinal stenosis. The patient needs to continue physical therapy and pain management. She is not a good candidate at this point for surgery until she is done with her antibiotics. 3. Right knee synovitis with positive rheumatoid factor and negative culture. I will order rheumatoid factor and CCP and would suggest giving her prednisone 20 mg daily to see if that would help her with mobility. Case discussed with Dr. Serrano, who is the primary on the team. 4. E. faecium bacteruria. This is asymptomatic. Please do not treat. PLAN: Continue ampicillin 2 grams every 4 hours, gentamicin 160 mg daily, end of therapy 09/24/2016. Start prednisone 20 mg daily.
[2016-08-30 11:58] LABS: INR 2.81
[2016-08-30] MEDS ORDERED: DILA2TAB2 PO (13:35)
[2016-08-30] MEDS ORDERED: BISA10SU PR (13:35)
[2016-08-30] MEDS ORDERED: BISAC5TA PO (13:35)
[2016-08-30] MEDS ORDERED: HYDR-3716 PO (13:35)
[2016-08-30] MEDS ORDERED: ALPR0.25 PO (13:35)
[2016-08-30] MEDS ORDERED: LIDO5TD TD ×2 (13:35)
[2016-08-30] MEDS ORDERED: ZANA4TAB PO (13:35)
[2016-08-30] MEDS ORDERED: AMPI2INJ2 IV (14:24)
[2016-08-30] MEDS ORDERED: GENT80SY INJ (14:24)
[2016-08-30] MEDS ORDERED: VANCOMYCIN 1000 MG/20 ML VIAL (J3370) As Ordered ONE (14:52)
[2016-08-30] MEDS ORDERED: VANCOMYCIN HCL 1,000 MG, VIAL MATE ADAPTER 1 EACH in D5W 250 ML IV ONE (15:00)
--- NOTE | 2016-08-31 22:40 | DS.PDOC ---
Discharge Summary General Date of Admission August 13, 2016 at 11:09 Date of Discharge 08/30/16 Primary Care Physician: Grecia Jimenez Attending Physician: NAEL EVANS DO Specialist/Consultants Involve: Ryan Mayer MD Specialist/Consultants Involve Dr. Ryan Cheung Discharge Summary Consults: Pain Management Orthopedics Infectious Disease Neurology Discharge diagnosis: Intractable Chronic Back Pain 2/2 Spinal Stenosis Enterococcus Faecalis Bacteremia R Knee Synovitis Secondary diagnosis: Chronic Low Back Pain with Lumbar Spinal Stenosis Right Knee and Hip Osteoarthritis Bioprosthetic Aortic Valve Replacement CAD s/p CABG Hyperlipidemia HTN Normocytic Anemia Hypokalemia Non-insulin Dependent Diabetes, diet controlled as outpatient. Hiatal Hernia Hx of AK Hx of DVT on coumadin Hospital course: Ms. Bruce is a 76 yo F with a PMH significant for chronic pain and chronic LBP who was recently discharged from [facility] on July 22 2016 for L hip pain, hx of CAD, AK sp CABG, HTN, hx of aortic valve replacement, presented to the [facility] ED for severe back pain and inability to ambulate due to this back pain. She had apparently missed her midnight dose of tramadol. Woke up in severe pain at 3 AM. Was not able to sit up due to the pain. EMS was called. Also c/o of diffuse leg pain pain bilaterally. Admitted to [facility]. Denied any hx of recent falls, incontinence, saddle anesthesia, numbness or sensory changes anywhere, or paresthesia. Denied fevers, chest pain, SOB, palpitations, fatigue , or change in bowel/bladder habits. Patient was febrile on admission, then fevers subsided for a while, however, patient became febrile again later on. Please see progress notes and [facility] for further details. Patient was admitted to the hospitalist service for intractable LBP. A CT scan of the lumbar spine was done which showed no acute compression deformities or destructive lesions and no source of epidural abscess, but did show chronic degenerative changes. Patient was started on pain medication regimen of lyrica, toradol, zanaflex, lidocaine patch initially. Physical therapy and occupational therapy were ordered. Patient was also eventually found to have blood cx (+) for enterococcus faecalis bacteremia of unclear etiology. In April 2016, the patient had right wrist cellulitis. Blood cultures on 08/10 and 08/11/2016 were positive. Repeat culture 08/13/2016 was negative. Urine cx were also obtained which came (+) [place] [id number] enterococcus faecium. On an admission in April 2016, it was noted that patient had a 2-D echocardiogram done due to her hx of aortic valve replacement. However, there were no vegetations reported or seen on imaging at that time. It was suggested that possible sources of patient's bacteremia may have been due to patient's prosthetic aortic valve or her bilateral hip prostheses. On exam, patient was not noted to have any significant tenderness or warmth to palpation or of her hips according to documentation from rounding physician during earlier hospitalization. Patient was then started on 2 gm ampicillin q4h. Infectious disease was then consulted for further investigation and recommendations of etiology of infection. A 2D transesophageal echocardiogram was repeated which also showed no vegetations. 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 Pain management and Neurosurgery was consulted as well for the back pain. To rule out possible discitis, an MRI of the lumbar spine was also ordered and was negative for diskitis or abscess. As per pain management recommendations, norco and morphine was started PRN, and lyrica was continued. Later, pain management was reconsulted and recommended dilaudid and to hold hydrocodone 30 minutes prior to attempting physical therapy. Physical therapy had been ordered, but patient was unable to participate very much in the beginning due to not being able to tolerate this and refusing until her pain was tolerable. ID recommended to add gentamycin and continue ampicillin. Neurosurgery was requested for patient to get a back brace since patient was not a surgical candidate due to active infection. Patient tried back brace but stated it was not helpful. Patient also developed R knee pain for which CT imaging studies were done showing findings compatible for synovitis and advanced tricompartment osteoarthritis. Dr. Christofer Rowley of orthopedic surgery performed a joint aspiration for gram stain and culture which came back with no organisms seen on gram stain and culture. According to the ID note from Dr. Ryan Mayer, the joint aspiration was suggestive of arthritic etiology of knee pain/R knee synovitis. ID had also recommended tx with ampicillin and gentamycin for a total of 6 weeks, and last therapy to be done 09/24/16 via picc line. Eventually, it was determined that patient could receive PT and IV antibiotic at a SNF like [facility] for her severe spinal stenosis. It was determined that the patient was appropriate for [facility] placement. PFS was consulted for placement. Due to bacteremia, patient was not a surgical candidate for invasive neurosurgical procedures. On 08/30/16, patient was transferred and discharged to [facility]) in hemodynamically and clinically stable condition for continued physical therapy, rehabilitation, and IV antibiotics. Progress note on date of discharge: Please see Dr. Nael Evans's progress note for physical examination and subjective section of day of discharge summary. Objective: Vitals: Please see below. Labs: PT: 29.6, INR: 2.81. Rheumatoid Factor: 62.2 (H) Anti-Cyclic Citrullinated Peptide Antibody: 23 (H) Assessment: 76 yo F with PMH significant for bioprosthetic aortic valve, chronic low back pain secondary to DDD and severe spinal stenosis presented for difficulty with ambulating due to severe back pain, recurrent fevers, R knee pain and joint swelling with R knee synovitis, and blood cx (+) for Enterococcus Faecalis bacteremia with unidentified etiology. Disposition: Stable. Will be transferred to [facility] to complete PT, rehabilitation, and IV antibiotic therapy with ampicillin and gentamycin until 6 weeks total completed. Follow-up: In [address] Ryan Mayer 1-2 weeks with PCP (referred to Grecia Jimenez) or per [facility] . With the Pain Clinic as needed. Activity: As tolerated. Diet: Regular. Medications on discharge: Please see below for list. Time spent on discharge: 35 minutes Vital Signs/I&Os Vital Signs Date Time Temp Pulse Resp B/P (MAP) Pulse Ox O2 Delivery O2 Flow Rate FiO2 08/30/16 09:37 18 Room Air 08/30/16 06:00 98.5 86 137/63 (87) 94 I&O- Last 24 Hours up to 6 AM 08/31/16 06:00 Intake Total 2084 ml Output Total 1350 ml Balance 734 ml Microbiology Microbiology 08/23/16 Blood Culture - Final, Complete NO GROWTH AFTER 5 DAYS 08/23/16 Blood Culture - Final, Complete NO GROWTH AFTER 5 DAYS 08/23/16 Gram Stain - Final, Complete 08/23/16 Body Fluid Culture - Final, Complete 08/24/16 Urine Culture - Final, Complete Enterococcus Faecium Discharge Medications Scheduled Ampicillin Sodium (Ampicillin Sodium) 2 Gm Inj, 2 GM IV Q4H Aspirin (Aspirin EC) 81 Mg Tabec, 81 MG PO DAILY, (Reported) Atorvastatin Calcium (Atorvastatin Calcium) 40 Mg Tab, 40 MG PO QHS, (Reported) Bisacodyl (Bisacodyl EC) 5 Mg Tab, 5 MG PO DAILY Chlorthalidone (Chlorthalidone) 12.5 Mg Halftab, 12.5 MG PO 3XW, (Reported) SUNDAY, SUNDAY, SUNDAY Esomeprazole Magnesium Trihydr (Nexium) 40 Mg Cap, 40 MG PO DAILY, (Reported) PATIENT HAS BEEN OUT FOR A FEW DAYS AND HAS BEEN TAKING RANITIDINE Gentamicin Sulfate (Gentamicin Sulfate) 80 Mg/20 Ml Syringe, 160 MG INJ DAILY Lidocaine (Lidoderm) 5 % Dis, 5 PATCH TD DAILY, (Reported) MAX DOSE OF 3 PATCHES... PATIENT STATES SHE HAS BEEN USING 5 TO 6 MOST DAYS AND APPLYING WHEREVER SHE FEELS NEEDED. CURRENTLY HAS ONE APPLIED TO RIGHT KNEE. Lidocaine (Lidocaine) 5 % Pad, 1 PATCH TD DAILY Lidocaine (Lidocaine) 5 % Pad, 2 PATCH TD QHS Lidocaine (Lidocaine) 5 % Pad, 1 PATCH TD DAILY Magnesium Oxide (Magnesium Oxide) 400 Mg Tab, 400 MG PO QHS, (Reported) Metoprolol Succinate (Metoprolol Succinate ER) 50 Mg Tab, 50 MG PO DAILY, ( Reported) Pregabalin (Lyrica) 50 Mg Cap, 100 MG PO TID, (Reported) PATIENT STATES SHE STARTED TAKING 100MG TID OF 08/09/16 NOON. RX STATES 50MG TID Spironolactone (Spironolactone) 25 Mg Tab, 12.5 MG PO DAILY, (Reported) Scheduled PRN Acetaminophen/Hydrocodone (Hydrocodone/Acetaminophen 7.5-325 mg) 1 Tab Tab, 1 TAB PO Q8H PRN for PAIN OR DISCOMFORT Alprazolam (Alprazolam) 0.25 Mg Tab, 0.25 MG PO Q4HP PRN for ANXIETY Bisacodyl (Bisac-Evac) 10 Mg Supp, 10 MG NH DAILYPRN PRN for CONSTIPATION Hydromorphone HCl (Dilaudid) 2 Mg Tab, 2 MG PO DAILY PRN for pain Meclizine HCl (Meclizine HCl) 25 Mg Tab, 25 TAB PO Q6HP PRN for DIZZINESS, ( Reported) Nitroglycerin (Nitrostat) 0.4 Mg Subl, 0.4 MG SL NITRO PRN for ANGINA, (Reported ) Tizanidine Hydrochloride (Zanaflex) 4 Mg Tab, 2 MG PO Q8HP PRN for BACK PAIN/ spasm Tramadol HCl (Tramadol HCl) 50 Mg Tab, 50 MG PO 5XD PRN for PAIN, (Reported) Allergies Coded Allergies: Heparin (Unverified Allergy, Unknown, Anaphylaxis, 04/14/16) GME ATTESTATION GME ATTESTATION My preceptor for this patient encounter was Dr. Nael Evans, and was physically present in the building during the encounter and was fully available. As needed, all aspects of the patient interview, examination, medical decision making process, and medical care plan development were reviewed and approved by the preceptor. Preceptor is aware and concurs with the plan as stated in the body of this note and will attest to such by his/her cosignature. ATTENDING NOTE Attending Note: I have independently examined this patient and all aspects of the exam and treatment decisions have been discussed. A member of the hospitalist staff will continue to follow this patient through discharge. MAYNOR BOURNE OGME-1 Aug 31, 2016 22:40 NAEL EVANS DO Sep 13, 2016 16:38
--- NOTE | 2016-09-18 18:33 | IPNPDOC ---
Date Seen The patient was seen on 08/30/16. Progress Note SUBJECTIVE: Patient is a [76]-year-old female. Doing well this morning and anxious to be discharged. She has no complaints and no overnight issues. OBJECTIVE PHYSICAL EXAMINATION: VITAL SIGNS: T=98.5 RR=18 P=86 SPO2=94%RA GENERAL: NAD HEENT: WNL CARDIOVASCULAR:RRR. RESPIRATORY: CTA BILATERALLY ABDOMINAL: SOFT, UNREMARKABLE EXTREMITIES: NO EDEMA NEUROLOGICAL: NO DEFICITS LABORATORY DATA: N/A PROBLEMS: Recurrent Fevers/Positive Blood Cx Enterococcus Faecalis: Continue ID recommendations and treatment with ampicillin and gentamycin for a total of 6 weeks. Last therapy to be done 09/24/16 via picc line. Right knee synovitis: Joint aspiration performed by Dr. Rowley. According to ID note, joint aspiration fluid gram stain & culture was negative suggesting arthritic etiology of knee pain. Intractable back pain 2/2 Spinal Stenosis: Back brace was not helpful to patient as previously mentioned. Continue lyrica, norco, and morphine. [place] dose was ordered 2 tabs PO q8 hours. However, pain management recommended norco to be dosed as 1 tablet PO q8 hours. Have changed back to pain management recommended dose as patient was reported to becoming more lethargic and sleeping a lot more throughout the day. Have also ordered narcan PRN RR <10. Furthermore, it was determined that patient can receive PT and IV antibiotics at SNF like [facility] for her severe spinal stenosis. It was determined that she is appropriate for jail [facility]. Have PFS consulted for placement. In addition, due to bacteremia, patient not a surgical candidate for neurosurgical invasive procedures. Bioprosthetic aortic valve replacement: continue aspirin, coumadin with dose adjustments, and antibiotics for presumed endocarditis. Hx of CAD and CABG: continue aspirin, atorvastatin, and metoprolol. Hypertension: Stable and controlled. Continue metoprolol, spironolactone, and chlorthalidone. Normocytic anemia: Stable. Continue monitoring daily CBCs. Hypokalemia: Continue with supplementation as needed. DVT ppx: Patient is normally anticoagulated with coumadin. Has been discontinued /held at this time. Immunizations as per protocol. DISPOSITION: Appreciate Dr. Mayer and Dr. Rowley's assistance. Should arrangements for home care and antibiotics be approved today will anticipate home discharge. SRUTHI EVANS DO Sep 18, 2016 18:33
== END 2016-08-30 17:00 | DRG 552 ==
LOC: M ED 08:26 → M ED INP 14:48 → M MSPAV 16:53 → OBSVTOIN 08-13 11:09
PROVIDERS: ADMIT Internal Medicine Nephrology; ATTEND Hospitalist
PROC: 0S9C3ZZ Drainage of Right Knee Joint, Percutaneous Approach (ICD-10-PCS; principal; 2016-08-23)
PROC: 02HV33Z Insertion of Infusion Device into Superior Vena Cava, Percutaneous Approach (ICD-10-PCS; 2016-08-23)
DX: M43.06 Spondylolysis, lumbar region (principal); R78.81 Bacteremia; I25.10 Atherosclerotic heart disease of native coronary artery without angina pectoris; I25.2 Old myocardial infarction; I10 Essential (primary) hypertension; Z79.01 Long term (current) use of anticoagulants; Z79.899 Other long term (current) drug therapy; M19.90 Unspecified osteoarthritis, unspecified site; K44.9 Diaphragmatic hernia without obstruction or gangrene; E11.9 Type 2 diabetes mellitus without complications; Z95.4 Presence of other heart-valve replacement; Z79.82 Long term (current) use of aspirin; Z96.641 Presence of right artificial hip joint; Z96.642 Presence of left artificial hip joint; Z86.718 Personal history of other venous thrombosis and embolism; E87.6 Hypokalemia; D50.9 Iron deficiency anemia, unspecified; E83.42 Hypomagnesemia; M67.361 Transient synovitis, right knee; M54.5 Low back pain

== ENCOUNTER → 2016-09-03 | Outpatient (REF) ==
[~2016-09-03] MED LIST changes: +ALPR0.25 PO; +AMPI2INJ2 IV; +BISA10SU PR; +BISAC5TA PO; +DILA2TAB2 PO; +GENT80SY INJ; +HYDR-3716 PO; +LIDO5TD TD; +MECL-68 PO; +PREG50CA PO; +ZANA4TAB PO
== END ==
LOC: SKLAB2 11:47
DX: R50.9 Fever, unspecified (principal)

== ENCOUNTER → 2016-09-04 | Outpatient (REF) ==
[2016-09-04 08:35] LABS: MEAN CORPUSCULAR HEMOGLOBIN 28.6 pg (27.0-33.0); MEAN CORPUSCULAR HGB CONC 31.9 g/dl (32.0-36.5); MEAN CORPUSCULAR VOLUME 89.7 fl (80.0-96.0); RED CELL DISTRIBUTION WIDTH 15.8 % (11.5-14.5); WHITE BLOOD COUNT 7.5 K/mm3 (4.0-10.0)
[2016-09-04 09:07] LABS: ANION GAP 10 MEQ/L (8-16); BLOOD UREA NITROGEN 12 MG/DL (7-18); CALCIUM LEVEL 9.8 MG/DL (8.8-10.2); CARBON DIOXIDE LEVEL 31 MEQ/L (21-32); CHLORIDE LEVEL 98 MEQ/L (98-107); CREATININE FOR GFR 0.68 MG/DL (0.55-1.02); GLOMERULAR FILTRATION RATE > 60.0 (>39); GLUCOSE, FASTING 155 MG/DL (83-110); SODIUM LEVEL 139 MEQ/L (136-145)
== END ==
LOC: SKLAB2 07:00
DX: Z51.81 Encounter for therapeutic drug level monitoring (principal); Z79.899 Other long term (current) drug therapy

== ENCOUNTER → 2016-09-05 | Outpatient (REF) ==
[2016-09-05 08:56] LABS: INR 1.22
== END ==
LOC: SKLAB2 07:00
DX: Z51.81 Encounter for therapeutic drug level monitoring (principal); Z79.01 Long term (current) use of anticoagulants

== ENCOUNTER → 2016-09-11 | Outpatient (REF) ==
[2016-09-11 09:27] LABS: MEAN CORPUSCULAR HEMOGLOBIN 28.8 pg (27.0-33.0); MEAN CORPUSCULAR VOLUME 90.2 fl (80.0-96.0); RED CELL DISTRIBUTION WIDTH 16.2 % (11.5-14.5); WHITE BLOOD COUNT 9.8 K/mm3 (4.0-10.0)
[2016-09-11 10:28] LABS: ANION GAP 9 MEQ/L (8-16); BLOOD UREA NITROGEN 19 MG/DL (7-18); CALCIUM LEVEL 9.6 MG/DL (8.8-10.2); CARBON DIOXIDE LEVEL 30 MEQ/L (21-32); CHLORIDE LEVEL 103 MEQ/L (98-107); CREATININE FOR GFR 0.82 MG/DL (0.55-1.02); GLOMERULAR FILTRATION RATE > 60.0 (>39); GLUCOSE, FASTING 178 MG/DL (83-110); POTASSIUM SERUM 3.3 MEQ/L (3.5-5.1); SODIUM LEVEL 142 MEQ/L (136-145)
[2016-09-11 12:32] LABS: GENTAMICIN LEVEL TROUGH 0.6 MCG/ML (0.0-2.0)
== END ==
LOC: SKLAB2 08:00
DX: Z51.81 Encounter for therapeutic drug level monitoring (principal)

== ENCOUNTER → 2016-09-18 | Outpatient (REF) ==
[2016-09-18 09:42] LABS: MEAN CORPUSCULAR HEMOGLOBIN 29.2 pg (27.0-33.0); MEAN CORPUSCULAR HGB CONC 31.8 g/dl (32.0-36.5); MEAN CORPUSCULAR VOLUME 91.9 fl (80.0-96.0); RED CELL DISTRIBUTION WIDTH 16.6 % (11.5-14.5); WHITE BLOOD COUNT 8.3 K/mm3 (4.0-10.0)
[2016-09-18 09:48] LABS: ANION GAP 10 MEQ/L (8-16); BLOOD UREA NITROGEN 18 MG/DL (7-18); CALCIUM LEVEL 9.9 MG/DL (8.8-10.2); CARBON DIOXIDE LEVEL 29 MEQ/L (21-32); CHLORIDE LEVEL 99 MEQ/L (98-107); CREATININE FOR GFR 0.84 MG/DL (0.55-1.02); GLOMERULAR FILTRATION RATE > 60.0 (>39); GLUCOSE, FASTING 221 MG/DL (83-110); POTASSIUM SERUM 3.6 MEQ/L (3.5-5.1); SODIUM LEVEL 138 MEQ/L (136-145)
== END ==
LOC: SKLAB2 07:00
DX: Z51.81 Encounter for therapeutic drug level monitoring (principal)

== ENCOUNTER → 2016-09-19 | Outpatient (REF) ==
[2016-09-19 08:58] LABS: BASO % 0.4 % (0.0-1.0); EOS # 0.1 K/mm3 (0.0-0.50); EOS % 1.7 % (0.0-3.0); LARGE UNSTAINED CELL # 0.1 K/mm3 (0.0-0.4); LARGE UNSTAINED CELL % 1.8 % (0.0-4.0); LYMPH # 2.1 K/mm3 (1.5-4.5); LYMPH % 27.5 % (24.0-44.0); MEAN CORPUSCULAR HEMOGLOBIN 29.1 pg (27.0-33.0); MEAN CORPUSCULAR HGB CONC 32.5 g/dl (32.0-36.5); MEAN CORPUSCULAR VOLUME 89.5 fl (80.0-96.0); MONO # 0.5 K/mm3 (0.0-0.8); MONO % 6.9 % (0.0-5.0); NEUTROPHILS # 4.5 K/mm3 (1.8-7.7); NEUTROPHILS % 61.8 % (36.0-66.0); PLATELET COUNT, AUTOMATED 189 k/mm3 (150-450); RED CELL DISTRIBUTION WIDTH 16.8 % (11.5-14.5); WHITE BLOOD COUNT 7.2 K/mm3 (4.0-10.0)
== END ==
LOC: SKLAB2 07:17
DX: Z51.81 Encounter for therapeutic drug level monitoring (principal)

== ENCOUNTER → 2016-09-21 | Outpatient (CLI) | payer MEDICARE, OTHER ==
[~2016-09-21] MED LIST changes: +ASPI1TAB15 PO; -ASPI81TA7 PO; -ATOR40TA PO; +ATOR40TA75 PO; -DILA2TAB2 PO; +DILA2TAB6 PO; -LIDO5DIS36 TD; +LIDO5DIS41 TD; -METO-207 PO; +METO1TAB7 PO
== END ==
LOC: M PAIN 13:20
PROVIDERS: ATTEND Nurse Practitioner Family
DX: M54.5 Low back pain (principal); Z53.9 Procedure and treatment not carried out, unspecified reason

== ENCOUNTER → 2016-09-25 | Outpatient (REF) ==
[2016-09-25 08:49] LABS: MEAN CORPUSCULAR HEMOGLOBIN 29.3 pg (27.0-33.0); MEAN CORPUSCULAR HGB CONC 32.3 g/dl (32.0-36.5); MEAN CORPUSCULAR VOLUME 90.8 fl (80.0-96.0); RED CELL DISTRIBUTION WIDTH 17.1 % (11.5-14.5); WHITE BLOOD COUNT 8.4 K/mm3 (4.0-10.0)
[2016-09-25 09:23] LABS: ALBUMIN 2.7 GM/DL (3.2-5.2); ALBUMIN/GLOBULIN RATIO 0.75 (1.00-1.93); ALKALINE PHOSPHATASE 110 U/L (45-117); ALT/SGPT 13 U/L (12-78); ANION GAP 9 MEQ/L (8-16); AST/SGOT 10 U/L (15-37); BILIRUBIN,TOTAL 0.3 MG/DL (0.2-1.0); BLOOD UREA NITROGEN 20 MG/DL (7-18); CALCIUM LEVEL 9.3 MG/DL (8.8-10.2); CARBON DIOXIDE LEVEL 31 MEQ/L (21-32); CHLORIDE LEVEL 98 MEQ/L (98-107); CREATININE FOR GFR 0.81 MG/DL (0.55-1.02); GLOMERULAR FILTRATION RATE > 60.0 (>39); GLUCOSE, FASTING 261 MG/DL (83-110); POTASSIUM SERUM 3.6 MEQ/L (3.5-5.1); SODIUM LEVEL 138 MEQ/L (136-145); TOTAL PROTEIN 6.3 GM/DL (6.4-8.2)
== END ==
LOC: SKLAB2 08:00
DX: Z51.81 Encounter for therapeutic drug level monitoring (principal)

== ENCOUNTER → 2016-09-28 | Outpatient (REF) | LOC: SKLAB2 08:00 | DX: E11.9 Type 2 diabetes mellitus without complications (principal) ==

== ENCOUNTER → 2016-10-03 | Outpatient (REF) | LOC: SKLAB2 13:46 | DX: Z53.9 Procedure and treatment not carried out, unspecified reason (principal) ==

== ENCOUNTER → 2016-10-09 | Outpatient (CLI) | payer MEDICARE, OTHER ==
--- NOTE | 2016-10-09 23:52 | ECWPNPC ---
PATIENT NAME: LAURA BRIDGES : 1940 GENDER: FEMALE VISIT DATE: 10/09/2016 DISCHARGE DATE: 10/09/16 1232 VISIT LOCKED DATE TIME: PHYSICIAN: LEOBARDO THAO RESOURCE: LEOBARDO THAO REASON FOR APPOINTMENT 1. 40 MIN FOLLOW UP HISTORY OF PRESENT ILLNESS HISTORY OF PRESENT ILLNESS: 76 Y/O FEMALE INITIALLY SEEN IN PATIENT FOR SEVERE LOW BACK AND LEG PAIN BEING EVALUATED TODAY FOR MEDICINE MANAGEMENT.HAS BEEN ATTENDING REHAB SERVICES AT [facility].DOING WELL AND DISCHARGE IS PLANNED FOR 2 DAYS.AURELIO MUCH LOW BACK PAIN AND CHIEF AREA OF PAIN IS RIGHT KNEE AND LEFT SHOULDER.CURRENTLY USING HYDROCODONE 5/325 Q6H PRN AND LYRICA 100MG BID.FINDS MEDICATION IS HELPFUL ECSPECIALLY LYRICA FOR LEG SYMPTOMS.DISCUSSED MEDICATION OPTIONS FOR HOME THERAPY.DENIES RECENT FEVER OR WEIGHT LOSS.DENIES BOWEL OR BLADDER INCONTINENCE. PAIN THE PATIENT DESCRIBES THE PAIN... FALL RISK SCREENING: SCREENING :NO FALLS IN THE PAST YEAR CURRENT MEDICATIONS TAKING TYLENOL 325 MG TABLET 2 TABLET NEEDED ORALLY EVERY 4 HOURS NEEDED TAKING ASPIR-81 81 MG TABLET DELAYED RELEASE 1 TABLET ORALLY ONCE A DAY TAKING LIPITOR 40 MG TABLET 1 TABLET ORALLY ONCE A DAY TAKING METOPROLOL TARTRATE 50 MG TABLET 1 TABLET ORALLY DAILY TAKING NEXIUM 40 MG CAPSULE DELAYED RELEASE 1 CAPSULE ORALLY DAILY, NOTES: ONLY TAKES TWICE A MONTH TAKING LYRICA 100 MG CAPSULE 1 CAPSULE ORALLY TWICE A DAY TAKING POTASSIUM CHLORIDE 20 MEQ PACKET 1 PACKET WITH FOOD ORALLY ONCE A DAY TAKING TUMS 500 MG TABLET CHEWABLE ORALLY EVERY 6 HOURS NEEDED TAKING NORCO 5-325 MG TABLET 1 TABLET NEEDED ORALLY EVERY 6 HRS TAKING ELIQUIS 2.5 MG TABLET ORALLY BID TAKING DULCOLAX 10 MG SUPPOSITORY 1 SUPPOSITORY NEEDED RECTAL ONCE A DAY TAKING MILK OF MAGNESIA CONCENTRATE 2400 MG/10ML SUSPENSION 10 ML ORALLY DAILY NEEDED TAKING NITROGLYCERIN 0.4 MG TABLET SUBLINGUAL SUBLINGUAL NEEDED TAKING CHLORTHALIDONE 25 MG TABLET 12.5 MG ORALLY THREE TIMES A WEEK TAKING MAGNESIUM 200 MG TABLET 2 TABLETS WITH A MEAL ORALLY ONCE A DAY TAKING SPIRONOLACTONE 25 MG TABLET ONE HALF TABLET ORALLY DAILY NOT-TAKING DILAUDID 2 MG TABLET 1 TABLET NEEDED ORALLY MDD:1 NOT-TAKING AMPICILLIN-SULBACTAM SODIUM 15 (10-5) GM SOLUTION RECONSTITUTED INJECTION 3 TIMES A DAY NOT-TAKING GENTAMICIN SULFATE 40 MG/ML SOLUTION 160 MG INJECTION DAILY NOT-TAKING MULTIVITAMIN ADULT - TABLET 1 TAB ORALLY DAILY NOT-TAKING MECLIZINE HCL 25 MG TABLET CHEWABLE 1 TABLET NEEDED ORALLY EVERY 6 HOURS NEEDED NOT-TAKING LIDODERM 5 % PATCH 1 PATCH TO SKIN REMOVE AFTER 12 HOURS EXTERNALLY ONCE A DAY NOT-TAKING ZANAFLEX 2 MG CAPSULE 1 CAPSULE NEEDED ORALLY THREE TIMES A DAY NOT-TAKING NALOXONE HCL 2 MG/2ML SOLUTION PREFILLED SYRINGE 2 MG INJECTION NEEDED NOT-TAKING LISINOPRIL 5 5 MG TABLET 1 TAB(S) ORAL DAILY NOT-TAKING LASIX 20 MG TABLET 1 TABLET ORALLY ONCE A DAY MEDICATION LIST REVIEWED AND RECONCILED WITH THE PATIENT PAST MEDICAL HISTORY OSTEOARTHRITIS SPINAL STENOSIS AORTIC VALVULAR DYSFUNCTION TWO POSSIBLE HEART ATTACKS IN THE PAST HYPERTENSION HIATAL HERNIA BACK PAIN, KNEE PAIN, HIP PAIN ALLERGIES HEPARIN: PT CAN'T EXPLAIN SURGICAL HISTORY TOTAL LEFT HIP REPLACEMENT 06/27 TOTAL RIGHT HIP REPLACEMENT 01/31 GALLBLADDER 1997 RIGHT KNEE ARTHROSCOPY "LATE S" BILATERAL CARPAL TUNNEL RELEASE AORTIC VALVE REPLACEMENT 2016 FAMILY HISTORY FATHER: , DIAGNOSED WITH HEART DISEASE, CANCER MOTHER: 86 YRS, DIAGNOSED WITH HEART DISEASE BROTHER WITH A MECHANICAL VALVE. SOCIAL HISTORY GENERAL: TOBACCO USE ARE YOU A:FORMER SMOKER HOW LONG HAS IT BEEN SINCE YOU LAST SMOKED?> 10 YEARS ADDITIONAL FINDINGS: TOBACCO NON-USERCURRENT NON-SMOKER CAFFEINE NONE. 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 DIET: REGULAR - HAS BEEN ADVISED ON CARDIAC DIET. . EXERCISE: NO REGULAR EXERCISE. MARITAL STATUS: X3, , X1. RETIRED: YES. HOSPITALIZATION/MAJOR DIAGNOSTIC PROCEDURE SURGERY RELATED REVIEW OF SYSTEMS REVIEWED BY: PROVIDER: LEOBARDO YANCEY . CONSTITUTIONAL: ANY CHANGE IN YOUR MEDICAL CONDITION? NO . CHILLS NO . FEVER NO . INFECTION: DO YOU HAVE NEW INFECTIONS? NO . DO YOU HAVE HISTORY OF MRSA? NO . MUSCULOSKELETAL: ANY NEW PATTERNS OF PAIN OR NUMBNESS? NO . GASTROENTEROLOGY: ANY NEW CHANGE IN BOWEL CONTROL? NO . GENITOURINARY: ANY NEW CHANGE IN BLADDER CONTROL? NO . IS THERE A CHANCE YOU COULD BE ? NO . HEMATOLOGY/LYMPH: DO YOU TAKE ANY BLOOD THINNERS? (FOR EXAMPLE- COUMADIN, PLAVIX, AGGRENOX, PLATEL, PRADAXA, OR XARELTO) NO . WHEN WAS YOUR LAST DOSE? DATE: TIME: . NEUROLOGY: HAVE YOU FALLEN IN THE PAST 6 MONTHS? NO . ANY NEW EXTREMITY NUMBNESS OR WEAKNESS? NO . CARDIOLOGY: DO YOU HAVE A PACEMAKER OR DEFIBRILLATOR? NO . RESPIRATORY: HAVE YOU BEEN SICK IN THE PAST WEEK? NO . FEVER NO . FLU LIKE SYMPTOMS? NO . COUGH NO . INTEGUMENTARY: DO YOU HAVE ANY RASHES OR OPEN SORES? NO . ALLERGIC/IMMUNO: ARE YOU ALLERGIC TO SHELLFISH OR IV DYE? NO . ANY NEW ALLERGIES? NO . PSYCHIATRIC: DO YOU HAVE THOUGHTS OF HURTING YOURSELF OR SOMEONE ELSE? NO . ARE YOU ABUSED, NEGLECTED, OR IN AN UNSAFE ENVIRONMENT? NO . ENDOCRINOLOGY: ARE YOU DIABETIC? NO . OTHER: DO YOU NEED ANY PRESCRIPTIONS? NO . IF YES, PLEASE LIST: ____ . ANY NEW PROBLEMS WITH YOUR MEDICATIONS? NO . WHEN DID YOU LAST EAT? ____ . WHEN DID YOU LAST DRINK? ____ . WHAT DID YOU LAST DRINK? ____ . NAME OF PERSON DRIVING YOU HOME? ____ . DO YOU HAVE ANY OTHER QUESTIONS OR CONCERNS NO . VITAL SIGNS WT 194.6 LBS, HT 62 IN, BMI 35.59 INDEX, BP 118/69 MM HG, HR 81 /MIN, RR 18 /MIN, TEMP 98.4 F, OXYGEN SAT % 98%, SAFE IN ENV? (Y/N) Y, NA INITIALS GA 11:28, REVIEWED BY: JANICE. EXAMINATION GENERAL EXAMINATION: GENERAL APPEARANCE:COMFORTABLE, COOPERATIVE . PSYCHAFFECT NORMAL, ORIENTED X 3 . NECK:TRACHEA MIDLINE. NO CERVICAL OR SUPRACLAVICULAR LYMPHADENOPATHY NOTED. LUNGS:LUNG VILLAREAL ARE CLEAR TO AUSCULTATION BILATERALLY. GOOD MOVEMENT OF AIR. HEART:S1, S2 IN A REGULAR RATE AND RHYTHM. NO SIGNIFICANT MURMURS, RUBS OR GALLOPS NOTED. LUMBAR SPINE/LOWER BACK: INSPECTION:NORMAL CURVATURE OF SPINE. PALPATION:NO VERTEBRAL SPINE TENDERNESS, NO PARASPINAL TENDERNESS. MOTOR SYSTEM:5/5 BLE. SENSORY EXAM:NORMAL BILATERAL LE. REFLEXES:2/4 AND SYMMETRIC BLE. ASSESSMENTS LOW BACK PAIN AT MULTIPLE SITES - M54.5 (PRIMARY) NEUROPATHY - G62.9 CHRONIC PRESCRIPTION OPIATE USE - Z79.891 TREATMENT LOW BACK PAIN AT MULTIPLE SITES REFILL LYRICA CAPSULE, 100 MG, 1 CAPSULE, ORALLY, TWICE A DAY MDD2, 30 DAY(S), 60, REFILLS 2 REFILL NORCO TABLET, 5-325 MG, 1 TABLET NEEDED, ORALLY, Q6-8HR PRN MDD3, 30 DAY(S), 45, REFILLS 0 NOTES: NARCOTIC AGGREEMENT AND CLINIC POLICY REGARDING MEDICINE MANAGEMENT WERE REVIEWED WITH PATIENT AND SHE AGREES TO ABIDE. PROCEDURE CODES FA211 ESTABILISHED PATIENT [facility] CHARGE G8730 PAIN ASSESS POS TOOL F/U PLAN DOC G8427 DOC MEDS VERIFIED W/PT OR RE DISPOSITION & COMMUNICATION FOLLOW UP 4 WEEKS ELECTRONICALLY SIGNED BY BC MIRANDA ON 10/09/2016 AT 01:39 PM EDT DISCLAIMER : THIS IS A VISIT SUMMARY EXTRACTED FROM THE [employer] CHART. IT IS NOT A COPY OF THE [employer] PROGRESS NOTE. FAUSTINO
== END ==
LOC: M PAIN 10:40
PROVIDERS: ATTEND Nurse Practitioner Family
DX: G89.29 Other chronic pain (principal); M54.5 Low back pain; G62.9 Polyneuropathy, unspecified; M19.90 Unspecified osteoarthritis, unspecified site; I10 Essential (primary) hypertension; K44.9 Diaphragmatic hernia without obstruction or gangrene; Z88.8 Allergy status to other drugs, medicaments and biological substances; Z79.82 Long term (current) use of aspirin; Z79.899 Other long term (current) drug therapy; Z87.891 Personal history of nicotine dependence

== ENCOUNTER → 2016-11-13 | Outpatient (REF) | payer MEDICARE, OTHER | LOC: M LAB REF 12:51 | PROVIDERS: ATTEND Nurse Practitioner Adult Health | DX: E11.9 Type 2 diabetes mellitus without complications (principal) ==

== ENCOUNTER → 2016-11-13 | Outpatient (REF) | payer MEDICARE, OTHER ==
[2016-11-13 18:16] LABS: BASO % 0.3 % (0.0-1.0); EOS % 0.4 % (0.0-3.0); LARGE UNSTAINED CELL # 0.2 K/mm3 (0.0-0.4); LARGE UNSTAINED CELL % 1.6 % (0.0-4.0); LYMPH # 2.5 K/mm3 (1.5-4.5); LYMPH % 26.7 % (24.0-44.0); MEAN CORPUSCULAR HEMOGLOBIN 32.9 pg (27.0-33.0); MEAN CORPUSCULAR HGB CONC 34.2 g/dl (32.0-36.5); MEAN CORPUSCULAR VOLUME 96.3 fl (80.0-96.0); MONO # 0.4 K/mm3 (0.0-0.8); MONO % 4.1 % (0.0-5.0); NEUTROPHILS # 6.3 K/mm3 (1.8-7.7); NEUTROPHILS % 66.9 % (36.0-66.0); PLATELET COUNT, AUTOMATED 145 k/mm3 (150-450); RED CELL DISTRIBUTION WIDTH 17.4 % (11.5-14.5); WHITE BLOOD COUNT 9.4 K/mm3 (4.0-10.0)
[2016-11-13 20:07] LABS: ALBUMIN 3.6 GM/DL (3.2-5.2); ALBUMIN/GLOBULIN RATIO 1.33 (1.00-1.93); ALKALINE PHOSPHATASE 93 U/L (45-117); ALT/SGPT 63 U/L (12-78); ANION GAP 8 MEQ/L (8-16); AST/SGOT 23 U/L (15-37); BILIRUBIN,TOTAL 0.8 MG/DL (0.2-1.0); BLOOD UREA NITROGEN 32 MG/DL (7-18); CALCIUM LEVEL 9.3 MG/DL (8.8-10.2); CARBON DIOXIDE LEVEL 28 MEQ/L (21-32); CHLORIDE LEVEL 101 MEQ/L (98-107); CREATININE FOR GFR 0.83 MG/DL (0.55-1.02); GLOMERULAR FILTRATION RATE > 60.0 (>39); GLUCOSE, FASTING 247 MG/DL (83-110); MAGNESIUM LEVEL 1.8 MG/DL (1.8-2.4); POTASSIUM SERUM 3.7 MEQ/L (3.5-5.1); SODIUM LEVEL 137 MEQ/L (136-145); TOTAL PROTEIN 6.3 GM/DL (6.4-8.2)
== END ==
LOC: M LABDRAW1 11:45
PROVIDERS: ATTEND Nurse Practitioner Adult Health
DX: I10 Essential (primary) hypertension (principal); Z79.01 Long term (current) use of anticoagulants

== ENCOUNTER → 2016-12-07 | Outpatient (CLI) | payer MEDICARE, OTHER ==
--- NOTE | 2016-12-19 01:48 | ECWPNPC ---
PATIENT NAME: LAURA BRIDGES : 1940 GENDER: FEMALE VISIT DATE: 12/07/2016 DISCHARGE DATE: 12/07/16 1421 VISIT LOCKED DATE TIME: PHYSICIAN: LEOBARDO THAO RESOURCE: LEOBARDO THAO REASON FOR APPOINTMENT 1. BACK HISTORY OF PRESENT ILLNESS HISTORY OF PRESENT ILLNESS: HERE FOR F/U AND MEDICINE MANAGEMENT OF LOW BACK PAIN.AURELIO MUCH LOW BACK PAIN AND CHIEF AREA OF PAIN IS RIGHT KNEE AND LEFT SHOULDER.CURRENTLY USING HYDROCODONE 5/325 Q6H PRN AND LYRICA 100MG BID.FINDS MEDICATION IS HELPFUL ECSPECIALLY LYRICA FOR LEG SYMPTOMS..DENIES RECENT FEVER OR WEIGHT LOSS.DENIES BOWEL OR BLADDER INCONTINENCE.RATING PAIN VAS 7/10. PAIN THE PATIENT DESCRIBES THE PAIN... THE PATIENT DESCRIBES THE PAIN... FALL RISK SCREENING: SCREENING :NO FALLS IN THE PAST YEAR CURRENT MEDICATIONS TAKING TYLENOL 325 MG TABLET 2 TABLET NEEDED ORALLY EVERY 4 HOURS NEEDED TAKING ASPIR-81 81 MG TABLET DELAYED RELEASE 1 TABLET ORALLY ONCE A DAY TAKING LIPITOR 40 MG TABLET 1 TABLET ORALLY ONCE A DAY TAKING METOPROLOL TARTRATE 50 MG TABLET 1 TABLET ORALLY DAILY TAKING NEXIUM 40 MG CAPSULE DELAYED RELEASE 1 CAPSULE ORALLY DAILY, NOTES: ONLY TAKES TWICE A MONTH TAKING ELIQUIS 2.5 MG TABLET ORALLY BID TAKING NITROGLYCERIN 0.4 MG TABLET SUBLINGUAL SUBLINGUAL NEEDED TAKING CHLORTHALIDONE 25 MG TABLET 12.5 MG ORALLY THREE TIMES A WEEK TAKING MAGNESIUM 200 MG TABLET 2 TABLETS WITH A MEAL ORALLY ONCE A DAY TAKING SPIRONOLACTONE 25 MG TABLET ONE HALF TABLET ORALLY DAILY TAKING LYRICA 100 MG CAPSULE 1 CAPSULE ORALLY TWICE A DAY MDD2 TAKING NORCO 5-325 MG TABLET 1 TABLET NEEDED ORALLY Q6-8HR PRN MDD3 NOT-TAKING POTASSIUM CHLORIDE 20 MEQ PACKET 1 PACKET WITH FOOD ORALLY ONCE A DAY NOT-TAKING TUMS 500 MG TABLET CHEWABLE ORALLY EVERY 6 HOURS NEEDED NOT-TAKING DULCOLAX 10 MG SUPPOSITORY 1 SUPPOSITORY NEEDED RECTAL ONCE A DAY NOT-TAKING MILK OF MAGNESIA CONCENTRATE 2400 MG/10ML SUSPENSION 10 ML ORALLY DAILY NEEDED NOT-TAKING LYRICA 100 MG CAPSULE 1 CAPSULE ORALLY TWICE A DAY NOT-TAKING DILAUDID 2 MG TABLET 1 TABLET NEEDED ORALLY MDD:1 NOT-TAKING AMPICILLIN-SULBACTAM SODIUM 15 (10-5) GM SOLUTION RECONSTITUTED INJECTION 3 TIMES A DAY NOT-TAKING GENTAMICIN SULFATE 40 MG/ML SOLUTION 160 MG INJECTION DAILY NOT-TAKING MULTIVITAMIN ADULT - TABLET 1 TAB ORALLY DAILY NOT-TAKING MECLIZINE HCL 25 MG TABLET CHEWABLE 1 TABLET NEEDED ORALLY EVERY 6 HOURS NEEDED NOT-TAKING LIDODERM 5 % PATCH 1 PATCH TO SKIN REMOVE AFTER 12 HOURS EXTERNALLY ONCE A DAY NOT-TAKING ZANAFLEX 2 MG CAPSULE 1 CAPSULE NEEDED ORALLY THREE TIMES A DAY NOT-TAKING NALOXONE HCL 2 MG/2ML SOLUTION PREFILLED SYRINGE 2 MG INJECTION NEEDED NOT-TAKING LISINOPRIL 5 5 MG TABLET 1 TAB(S) ORAL DAILY NOT-TAKING LASIX 20 MG TABLET 1 TABLET ORALLY ONCE A DAY MEDICATION LIST REVIEWED AND RECONCILED WITH THE PATIENT PAST MEDICAL HISTORY OSTEOARTHRITIS SPINAL STENOSIS AORTIC VALVULAR DYSFUNCTION TWO POSSIBLE HEART ATTACKS IN THE PAST HYPERTENSION HIATAL HERNIA BACK PAIN, KNEE PAIN, HIP PAIN ALLERGIES HEPARIN: PT CAN'T EXPLAIN REVIEW OF SYSTEMS REVIEWED BY: PROVIDER: LEOBARDO YANCEY . CONSTITUTIONAL: ANY CHANGE IN YOUR MEDICAL CONDITION? NO . CHILLS NO . FEVER NO . INFECTION: DO YOU HAVE NEW INFECTIONS? NO . DO YOU HAVE HISTORY OF MRSA? NO . MUSCULOSKELETAL: ANY NEW PATTERNS OF PAIN OR NUMBNESS? NO . GASTROENTEROLOGY: ANY NEW CHANGE IN BOWEL CONTROL? NO . GENITOURINARY: ANY NEW CHANGE IN BLADDER CONTROL? NO . IS THERE A CHANCE YOU COULD BE ? NO . HEMATOLOGY/LYMPH: DO YOU TAKE ANY BLOOD THINNERS? (FOR EXAMPLE- COUMADIN, PLAVIX, AGGRENOX, PLATEL, PRADAXA, OR XARELTO) YES, ELEQUIS . WHEN WAS YOUR LAST DOSE? DATE: TIME: . NEUROLOGY: HAVE YOU FALLEN IN THE PAST 6 MONTHS? NO . ANY NEW EXTREMITY NUMBNESS OR WEAKNESS? NO . CARDIOLOGY: DO YOU HAVE A PACEMAKER OR DEFIBRILLATOR? NO . RESPIRATORY: HAVE YOU BEEN SICK IN THE PAST WEEK? NO . FEVER NO . FLU LIKE SYMPTOMS? NO . COUGH NO . INTEGUMENTARY: DO YOU HAVE ANY RASHES OR OPEN SORES? NO . ALLERGIC/IMMUNO: ARE YOU ALLERGIC TO SHELLFISH OR IV DYE? NO . ANY NEW ALLERGIES? NO . PSYCHIATRIC: DO YOU HAVE THOUGHTS OF HURTING YOURSELF OR SOMEONE ELSE? NO . ARE YOU ABUSED, NEGLECTED, OR IN AN UNSAFE ENVIRONMENT? NO . ENDOCRINOLOGY: ARE YOU DIABETIC? NO . OTHER: DO YOU NEED ANY PRESCRIPTIONS? NO . IF YES, PLEASE LIST: ____ . ANY NEW PROBLEMS WITH YOUR MEDICATIONS? NO . WHEN DID YOU LAST EAT? ____ . WHEN DID YOU LAST DRINK? ____ . WHAT DID YOU LAST DRINK? ____ . NAME OF PERSON DRIVING YOU HOME? ____ . DO YOU HAVE ANY OTHER QUESTIONS OR CONCERNS NO . VITAL SIGNS WT 194 LBS, HT 62 IN, BMI 35.48 INDEX, BP 117/68 MM HG, HR 96 /MIN, RR 18 /MIN, TEMP 97 F, OXYGEN SAT % 96, REVIEWED BY: NL. EXAMINATION GENERAL EXAMINATION: GENERAL APPEARANCE:COMFORTABLE, COOPERATIVE . PSYCHAFFECT NORMAL, ORIENTED X 3 . NECK:TRACHEA MIDLINE. NO CERVICAL OR SUPRACLAVICULAR LYMPHADENOPATHY NOTED. LUNGS:LUNG VILLAREAL ARE CLEAR TO AUSCULTATION BILATERALLY. GOOD MOVEMENT OF AIR. HEART:S1, S2 IN A REGULAR RATE AND RHYTHM. NO SIGNIFICANT MURMURS, RUBS OR GALLOPS NOTED. LUMBAR SPINE/LOWER BACK: INSPECTION:NORMAL CURVATURE OF SPINE. PALPATION:NO VERTEBRAL SPINE TENDERNESS, NO PARASPINAL TENDERNESS. MOTOR SYSTEM:5/5 BLE. SENSORY EXAM:NORMAL BILATERAL LE. REFLEXES:2/4 AND SYMMETRIC BLE. ASSESSMENTS LOW BACK PAIN AT MULTIPLE SITES - M54.5 (PRIMARY) CHRONIC PRESCRIPTION OPIATE USE - Z79.891 TREATMENT LOW BACK PAIN AT MULTIPLE SITES REFILL LYRICA CAPSULE, 100 MG, 1 CAPSULE, ORALLY, TWICE A DAY MDD2, 30 DAY(S), 60, REFILLS 2 REFILL NORCO TABLET, 5-325 MG, 1 TABLET NEEDED, ORALLY, Q6-8HR PRN MDD3, 30 DAY(S), 45, REFILLS 0 NOTES: ISTOP REGISTRY REVIEWED AND DEMNOSTRATES COMPLLIANCE. BRINGS IN MEDICATIONS WHICH IS APPROPRIATE FOR WHAT WAS DISPENSED. , RISKS AND BENEFITS OF NARCOTIC/OPIOD MEDICATIONS WERE REVIEWED WITH PATIENT - THIS INCLUDES BUT IS NOT LIMITED TO RISK OF DEPENDANCE/DEVELOPMENT OF ADDICTION, MOOD DISTURBANCE AND DEPRESSION, OSTEOPOROSIS, HORMONAL AND LABIDAL CHANGES, RESPIRATORY DEPRESSION AND . PATIENT IS ADVISED NOT TO DRIVE WHILE ON THESE MEDICATIONS. PREVENTIVE MEDICINE PT UNDERSTANDS THAT NARCOTICS ARE ONLY AVAILABLE AT [facility] AND NOT THROUGH MAIL ORDER. PROCEDURE CODES FA211 ESTABILISHED PATIENT [facility] FAC[facility] CHARGE G2875 PAIN ASSESS POS TOOL F/U PLAN DOC G8427 DOC MEDS VERIFIED W/PT OR RE DISPOSITION & COMMUNICATION FOLLOW UP 2 MONTHS ELECTRONICALLY SIGNED BY BC MIRANDA ON 12/18/2016 AT 06:20 PM EDT DISCLAIMER : THIS IS A VISIT SUMMARY EXTRACTED FROM THE [facility] [employer] [employer] CHART. IT IS NOT A COPY OF THE [facility] [employer] PROGRESS NOTE. FAUSTINO
== END ==
LOC: M PAIN 13:30
PROVIDERS: ATTEND Nurse Practitioner Family
DX: G89.29 Other chronic pain (principal); M54.5 Low back pain; M19.90 Unspecified osteoarthritis, unspecified site; I25.2 Old myocardial infarction; Z79.01 Long term (current) use of anticoagulants; Z79.82 Long term (current) use of aspirin; Z79.899 Other long term (current) drug therapy

== ENCOUNTER → 2016-12-18 | Outpatient (REF) | payer MEDICARE, OTHER ==
[2016-12-18 16:26] LABS: ANION GAP 9 MEQ/L (8-16); BLOOD UREA NITROGEN 29 MG/DL (7-18); CALCIUM LEVEL 9.2 MG/DL (8.8-10.2); CARBON DIOXIDE LEVEL 30 MEQ/L (21-32); CHLORIDE LEVEL 102 MEQ/L (98-107); CREATININE FOR GFR 0.95 MG/DL (0.55-1.02); GLOMERULAR FILTRATION RATE > 60.0 (>39); GLUCOSE, FASTING 230 MG/DL (83-110); POTASSIUM SERUM 3.6 MEQ/L (3.5-5.1); SODIUM LEVEL 141 MEQ/L (136-145)
== END ==
LOC: M LABDRAW1 15:30
PROVIDERS: ATTEND Nurse Practitioner Adult Health
DX: I10 Essential (primary) hypertension (principal)

== ENCOUNTER → 2016-12-28 | Outpatient (REF) | payer MEDICARE, OTHER ==
[2016-12-28 11:57] LABS: BASO % 0.3 % (0.0-1.0); EOS # 0.1 10^3/uL (0.0-0.50); EOS % 0.9 % (0.0-3.0); IMMATURE GRANULOCYTE % 0.5 % (0-0); LYMPH # 1.7 10^3/uL (1.5-4.5); LYMPH % 25.5 % (24.0-44.0); MEAN CORPUSCULAR HEMOGLOBIN 32.1 pg (27.0-33.0); MEAN CORPUSCULAR HGB CONC 32.5 g/dl (32.0-36.5); MEAN CORPUSCULAR VOLUME 98.8 fl (80.0-96.0); MONO # 0.6 10^3/uL (0.0-0.8); MONO % 8.6 % (0.0-5.0); NEUTROPHILS # 4.2 10^3/uL (1.8-7.7); NEUTROPHILS % 64.2 % (36.0-66.0); RED CELL DISTRIBUTION WIDTH 15.3 % (11.5-14.5); WHITE BLOOD COUNT 6.5 10^3/uL (4.0-10.0)
[2016-12-28 12:35] LABS: ALBUMIN 3.4 GM/DL (3.2-5.2); ALBUMIN/GLOBULIN RATIO 1.17 (1.00-1.93); ALKALINE PHOSPHATASE 97 U/L (45-117); ALT/SGPT 19 U/L (12-78); ANION GAP 7 MEQ/L (8-16); AST/SGOT 14 U/L (15-37); BLOOD UREA NITROGEN 23 MG/DL (7-18); CALCIUM LEVEL 9.4 MG/DL (8.8-10.2); CARBON DIOXIDE LEVEL 27 MEQ/L (21-32); CHLORIDE LEVEL 108 MEQ/L (98-107); CHOLESTEROL LEVEL 127 MG/DL (<200); CREATININE FOR GFR 0.69 MG/DL (0.55-1.02); GLOMERULAR FILTRATION RATE > 60.0 (>39); GLUCOSE, FASTING 132 MG/DL (83-110); POTASSIUM SERUM 3.7 MEQ/L (3.5-5.1); SODIUM LEVEL 142 MEQ/L (136-145); TOTAL PROTEIN 6.3 GM/DL (6.4-8.2); TRIGLYCERIDES LEVEL 169 MG/DL (<150)
== END ==
LOC: M LABDRAW1 10:25
PROVIDERS: ATTEND Internal Medicine Cardiovascular Disease
DX: I50.32 Chronic diastolic (congestive) heart failure (principal); I25.10 Atherosclerotic heart disease of native coronary artery without angina pectoris; I35.0 Nonrheumatic aortic (valve) stenosis

== ENCOUNTER → 2016-12-29 | Outpatient (REF) | payer MEDICARE, OTHER | LOC: M LABDRAW1 10:30 | PROVIDERS: ATTEND Internal Medicine Cardiovascular Disease | DX: I50.32 Chronic diastolic (congestive) heart failure (principal); I35.0 Nonrheumatic aortic (valve) stenosis ==

== ENCOUNTER → 2017-03-22 | Outpatient (REF) | payer MEDICARE, OTHER ==
[2017-03-22 11:19] LABS: BASO % 0.4 % (0.0-1.0); EOS # 0.1 10^3/uL (0.0-0.50); EOS % 1.1 % (0.0-3.0); IMMATURE GRANULOCYTE % 0.3 % (0-0); LYMPH # 2.2 10^3/uL (1.5-4.5); LYMPH % 30.1 % (24.0-44.0); MEAN CORPUSCULAR HEMOGLOBIN 31.4 pg (27.0-33.0); MEAN CORPUSCULAR HGB CONC 32.1 g/dl (32.0-36.5); MEAN CORPUSCULAR VOLUME 97.8 fl (80.0-96.0); MONO # 0.5 10^3/uL (0.0-0.8); MONO % 7.1 % (0.0-5.0); NEUTROPHILS # 4.4 10^3/uL (1.8-7.7); PLATELET COUNT, AUTOMATED 173 10^3/uL (150-450); WHITE BLOOD COUNT 7.1 10^3/uL (4.0-10.0)
[2017-03-22 11:46] LABS: ALBUMIN 4.1 GM/DL (3.2-5.2); ALBUMIN/GLOBULIN RATIO 1.32 (1.00-1.93); ALKALINE PHOSPHATASE 114 U/L (45-117); ALT/SGPT 21 U/L (12-78); ANION GAP 10 MEQ/L (8-16); AST/SGOT 16 U/L (7-37); BILIRUBIN,TOTAL 1.2 MG/DL (0.2-1.0); BLOOD UREA NITROGEN 27 MG/DL (7-18); CALCIUM LEVEL 9.5 MG/DL (8.8-10.2); CARBON DIOXIDE LEVEL 26 MEQ/L (21-32); CHLORIDE LEVEL 106 MEQ/L (98-107); CHOLESTEROL LEVEL 140 MG/DL (<200); CREATININE FOR GFR 0.84 MG/DL (0.55-1.02); GLOMERULAR FILTRATION RATE > 60.0 (>39); GLUCOSE, FASTING 113 MG/DL (83-110); MAGNESIUM LEVEL 1.9 MG/DL (1.8-2.4); POTASSIUM SERUM 3.9 MEQ/L (3.5-5.1); SODIUM LEVEL 142 MEQ/L (136-145); TOTAL PROTEIN 7.2 GM/DL (6.4-8.2); TRIGLYCERIDES LEVEL 89 MG/DL (<150)
== END ==
LOC: M LABDRAW1 10:10
DX: I49.3 Ventricular premature depolarization (principal); I25.10 Atherosclerotic heart disease of native coronary artery without angina pectoris; I35.0 Nonrheumatic aortic (valve) stenosis; I50.32 Chronic diastolic (congestive) heart failure
CPT/HCPCS: 83735

== ENCOUNTER → 2017-05-28 | Outpatient (REF) | payer MEDICARE, OTHER ==
[2017-05-28 15:20] LABS: BASO % 0.4 % (0.0-1.0); EOS # 0.1 10^3/uL (0.0-0.50); HEMATOCRIT 34.3 % (36.0-47.0); HEMOGLOBIN 11.5 g/dl (12.0-16.0); IMMATURE GRANULOCYTE % 0.3 % (0-3.0); LYMPH % 27.6 % (24.0-44.0); MEAN CORPUSCULAR HEMOGLOBIN 32.6 pg (27.0-33.0); MEAN CORPUSCULAR HGB CONC 33.5 g/dl (32.0-36.5); MEAN CORPUSCULAR VOLUME 97.2 fl (80.0-96.0); MONO # 0.5 10^3/uL (0.0-0.8); MONO % 7.4 % (0.0-5.0); NEUTROPHILS # 4.6 10^3/uL (1.8-7.7); NEUTROPHILS % 63.3 % (36.0-66.0); PLATELET COUNT, AUTOMATED 174 10^3/uL (150-450); RED BLOOD COUNT 3.53 10^6/uL (4.00-5.40); RED CELL DISTRIBUTION WIDTH 14.9 % (11.5-14.5); WHITE BLOOD COUNT 7.3 10^3/uL (4.0-10.0)
[2017-05-28 15:40] LABS: ALBUMIN 3.7 GM/DL (3.2-5.2); ALBUMIN/GLOBULIN RATIO 1.19 (1.00-1.93); ALKALINE PHOSPHATASE 117 U/L (45-117); ALT/SGPT 20 U/L (12-78); ANION GAP 8 MEQ/L (8-16); AST/SGOT 15 U/L (7-37); BILIRUBIN,TOTAL 0.8 MG/DL (0.2-1.0); BLOOD UREA NITROGEN 30 MG/DL (7-18); CALCIUM LEVEL 9.3 MG/DL (8.8-10.2); CARBON DIOXIDE LEVEL 26 MEQ/L (21-32); CHLORIDE LEVEL 108 MEQ/L (98-107); CREATININE FOR GFR 0.95 MG/DL (0.55-1.30); GLOMERULAR FILTRATION RATE > 60.0 (>39); GLUCOSE, FASTING 136 MG/DL (70-100); POTASSIUM SERUM 4.3 MEQ/L (3.5-5.1); SODIUM LEVEL 142 MEQ/L (136-145); TOTAL PROTEIN 6.8 GM/DL (6.4-8.2)
== END ==
LOC: M LABDRAW1 15:12
DX: I50.32 Chronic diastolic (congestive) heart failure (principal)
CPT/HCPCS: 80053

== ENCOUNTER → 2017-08-24 | Outpatient (REF) | payer MEDICARE, OTHER ==
[2017-08-24 13:45] LABS: ALBUMIN 3.7 GM/DL (3.2-5.2); ANION GAP 7 MEQ/L (8-16); BLOOD UREA NITROGEN 29 MG/DL (7-18); CALCIUM LEVEL 9.4 MG/DL (8.8-10.2); CARBON DIOXIDE LEVEL 27 MEQ/L (21-32); CHLORIDE LEVEL 108 MEQ/L (98-107); CREATININE FOR GFR 1.06 MG/DL (0.55-1.30); GLOMERULAR FILTRATION RATE 53.7 (>39); GLUCOSE, FASTING 165 MG/DL (70-100); MAGNESIUM LEVEL 1.6 MG/DL (1.8-2.4); PHOSPHORUS LEVEL 2.8 MG/DL (2.5-4.9); POTASSIUM SERUM 4.3 MEQ/L (3.5-5.1); SODIUM LEVEL 142 MEQ/L (136-145)
[2017-08-24 13:51] LABS: ESTIMATED AVERAGE GLUCOSE 154 MG/DL (60-110)
== END ==
LOC: M LABDRAW1 12:57
DX: E11.9 Type 2 diabetes mellitus without complications (principal)
CPT/HCPCS: 83735

== ENCOUNTER → 2017-12-19 | Outpatient (REF) | payer MEDICARE, OTHER ==
[2017-12-19 14:44] LABS: BASO % 0.3 % (0.0-1.0); EOS # 0.1 10^3/uL (0.0-0.50); EOS % 0.7 % (0.0-3.0); HEMATOCRIT 37.5 % (36.0-47.0); HEMOGLOBIN 12.4 g/dl (12.0-15.5); IMMATURE GRANULOCYTE # 0.1 10^3/uL (0-0); IMMATURE GRANULOCYTE % 0.6 % (0-3.0); MEAN CORPUSCULAR HEMOGLOBIN 32.1 pg (27.0-33.0); MEAN CORPUSCULAR HGB CONC 33.1 g/dl (32.0-36.5); MEAN CORPUSCULAR VOLUME 97.2 fl (80.0-96.0); MONO # 0.8 10^3/uL (0.0-0.8); NEUTROPHILS # 8.5 10^3/uL (1.8-7.7); NEUTROPHILS % 68.4 % (36.0-66.0); PLATELET COUNT, AUTOMATED 154 10^3/uL (150-450); RED BLOOD COUNT 3.86 10^6/uL (4.00-5.40); RED CELL DISTRIBUTION WIDTH 14.2 % (11.5-14.5); WHITE BLOOD COUNT 12.5 10^3/uL (4.0-10.0)
[2017-12-19 15:00] LABS: ALBUMIN 3.8 GM/DL (3.2-5.2); ALBUMIN/GLOBULIN RATIO 1.12 (1.00-1.93); ALKALINE PHOSPHATASE 118 U/L (45-117); ALT/SGPT 25 U/L (12-78); ANION GAP 10 MEQ/L (8-16); AST/SGOT 16 U/L (7-37); BILIRUBIN,TOTAL 0.6 MG/DL (0.2-1.0); BLOOD UREA NITROGEN 34 MG/DL (7-18); C REACTIVE PROTEIN QUANTITATIV 0.38 MG/DL (0.00-0.30); CALCIUM LEVEL 10.2 MG/DL (8.8-10.2); CARBON DIOXIDE LEVEL 25 MEQ/L (21-32); CHLORIDE LEVEL 105 MEQ/L (98-107); CREATININE FOR GFR 1.09 MG/DL (0.55-1.30); GLUCOSE, FASTING 111 MG/DL (70-100); POTASSIUM SERUM 3.8 MEQ/L (3.5-5.1); SODIUM LEVEL 140 MEQ/L (136-145); TOTAL PROTEIN 7.2 GM/DL (6.4-8.2); TROPONIN I 0.05 NG/ML (< 0.10)
== END ==
LOC: M LABDRAW1 13:11
DX: R07.2 Precordial pain (principal); I50.32 Chronic diastolic (congestive) heart failure; I35.0 Nonrheumatic aortic (valve) stenosis
CPT/HCPCS: 80053

== ENCOUNTER → 2018-03-04 | Outpatient (REF) | payer MEDICARE, OTHER ==
[2018-03-04 16:06] LABS: BASO % 0.4 % (0.0-1.0); EOS # 0.1 10^3/uL (0.0-0.50); EOS % 1.2 % (0.0-3.0); HEMATOCRIT 34.3 % (36.0-47.0); HEMOGLOBIN 11.1 g/dl (12.0-15.5); IMMATURE GRANULOCYTE % 0.4 % (0-3.0); LYMPH # 1.9 10^3/uL (1.5-4.5); LYMPH % 25.6 % (24.0-44.0); MEAN CORPUSCULAR HEMOGLOBIN 32.1 pg (27.0-33.0); MEAN CORPUSCULAR HGB CONC 32.4 g/dl (32.0-36.5); MEAN CORPUSCULAR VOLUME 99.1 fl (80.0-96.0); MONO # 0.6 10^3/uL (0.0-0.8); NEUTROPHILS # 4.7 10^3/uL (1.8-7.7); NEUTROPHILS % 64.4 % (36.0-66.0); PLATELET COUNT, AUTOMATED 206 10^3/uL (150-450); RED BLOOD COUNT 3.46 10^6/uL (4.00-5.40); RED CELL DISTRIBUTION WIDTH 14.6 % (11.5-14.5); WHITE BLOOD COUNT 7.3 10^3/uL (4.0-10.0)
[2018-03-04 16:07] LABS: ALBUMIN 3.7 GM/DL (3.2-5.2); ANION GAP 9 MEQ/L (8-16); BLOOD UREA NITROGEN 25 MG/DL (7-18); CALCIUM LEVEL 9.5 MG/DL (8.8-10.2); CARBON DIOXIDE LEVEL 27 MEQ/L (21-32); CHLORIDE LEVEL 106 MEQ/L (98-107); CREATININE FOR GFR 1.28 MG/DL (0.55-1.30); GLOMERULAR FILTRATION RATE 43.2 (>39); GLUCOSE, FASTING 126 MG/DL (70-100); MAGNESIUM LEVEL 1.7 MG/DL (1.8-2.4); PHOSPHORUS LEVEL 2.9 MG/DL (2.5-4.9); POTASSIUM SERUM 4.2 MEQ/L (3.5-5.1); SODIUM LEVEL 142 MEQ/L (136-145); TROPONIN I < 0.02 NG/ML (< 0.10)
[2018-03-04 16:26] LABS: ERYTHROCYTE SEDIMENTATION RATE 44 mm/hr (0-30)
== END ==
LOC: M LABDRAW1 14:17
DX: R07.2 Precordial pain (principal); I35.0 Nonrheumatic aortic (valve) stenosis; I50.32 Chronic diastolic (congestive) heart failure
CPT/HCPCS: 83735

== ENCOUNTER 2018-06-20 13:29 | Emergency (ER) | payer MEDICARE, OTHER ==
[~2018-06-20] VITALS: Ht 157.5 cm; Wt 91.0 kg
[~2018-06-20 13:29] MED LIST changes: +CENTCHW3 PO; +ELIQ2.5T PO; +HYDR-3713 PO; +LIDO5CRE6 TOP; +PLAV1TAB2 PO; +ROPI0.253 PO; +SPIR-10 PO; -SPIR25TA2 PO
[2018-06-20 14:16] LABS: BASO % 0.1 % (0.0-1.0); HEMATOCRIT 34.1 % (36.0-47.0); HEMOGLOBIN 11.6 g/dl (12.0-15.5); MEAN CORPUSCULAR HEMOGLOBIN 32.9 pg (27.0-33.0); MEAN CORPUSCULAR VOLUME 96.6 fl (80.0-96.0); MONO # 0.3 10^3/uL (0.0-0.8); MONO % 3.2 % (0.0-5.0); NEUTROPHILS # 8.8 10^3/uL (1.8-7.7); NEUTROPHILS % 86.1 % (36.0-66.0); PLATELET COUNT, AUTOMATED 189 10^3/uL (150-450); RED BLOOD COUNT 3.53 10^6/uL (4.00-5.40); WHITE BLOOD COUNT 10.2 10^3/uL (4.0-10.0)
[2018-06-20 14:19] LABS: INR 1.11; PROTHROMBIN TIME 14.5 SECONDS (12.1-14.4)
[2018-06-20 14:20] LABS: PARTIAL THROMBOPLASTIN TIME 26.8 SECONDS (25.4-37.6)
[2018-06-20 14:31] LABS: ALBUMIN 3.8 GM/DL (3.2-5.2); ALT/SGPT 25 U/L (12-78); BILIRUBIN,DIRECT 0.2 MG/DL (0.0-0.2); BILIRUBIN,TOTAL 0.9 MG/DL (0.2-1.0); BLOOD UREA NITROGEN 30 MG/DL (7-18); CALCIUM LEVEL 10.4 MG/DL (8.8-10.2); CARBON DIOXIDE LEVEL 23 MEQ/L (21-32); CHLORIDE LEVEL 104 MEQ/L (98-107); CPK CREATINE PHOSPHOKINASE 59 U/L (26-192); FREE T4 1.21 NG/DL (0.76-1.46); GLOMERULAR FILTRATION RATE 42.4 (>39); GLUCOSE, FASTING 236 MG/DL (70-100); MB/CK RELATIVE INDEX 3.22 (< OR =4); NT-PRO BNP 2522 PG/ML (<450); POTASSIUM SERUM 3.6 MEQ/L (3.5-5.1); SODIUM LEVEL 140 MEQ/L (136-145); THYROID STIMULATING HORMONE 0.585 uIU/ML (0.358-3.740); TOTAL PROTEIN 7.3 GM/DL (6.4-8.2); TROPONIN I < 0.02 NG/ML (< 0.10)
--- NOTE | 2018-06-20 14:32 | REP ---
Oral chest x-ray: Single view. History: Chest pain. Comparison study: August 10, 2016. Findings: EKG monitoring electrodes overlie the chest. The patient is status post prior median sternotomy. Moderate cardiac enlargement is seen. The left hemidiaphragm remains somewhat elevated. There is chronic atelectasis and/or fibrosis in the left base above the elevated left hemidiaphragm. No new infiltrate is seen. No pleural effusion is noted. There are advanced degenerative changes in the shoulders. The thoracic aorta is calcific and tortuous as before. Impression: Moderate cardiomegaly. Elevated left hemidiaphragm with atelectasis and/or fibrosis in the left base. Otherwise no acute disease. Prior sternotomy. Electronically Signed by Elias Gaxiola MD 06/20/2018 02:24 P
[2018-06-20 16:44] VITALS: BP 131/67
--- NOTE | 2018-06-21 06:32 | ECGEPIP ---
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
== END 2018-06-20 16:44 | disposition short-term general hospital (02) ==
LOC: EDBD 13:29 → M ED 13:29
DX: I25.110 Atherosclerotic heart disease of native coronary artery with unstable angina pectoris (principal); R94.31 Abnormal electrocardiogram [ECG] [EKG]; I25.2 Old myocardial infarction; R06.02 Shortness of breath; E11.9 Type 2 diabetes mellitus without complications; I10 Essential (primary) hypertension; M54.9 Dorsalgia, unspecified; G89.29 Other chronic pain; M19.90 Unspecified osteoarthritis, unspecified site; Z79.01 Long term (current) use of anticoagulants; Z79.899 Other long term (current) drug therapy; Z95.1 Presence of aortocoronary bypass graft; Z95.5 Presence of coronary angioplasty implant and graft; Z98.890 Other specified postprocedural states; Z86.79 Personal history of other diseases of the circulatory system; Z86.718 Personal history of other venous thrombosis and embolism; Z88.8 Allergy status to other drugs, medicaments and biological substances

== ENCOUNTER 2018-07-12 12:41 | Emergency (ER) | payer MEDICARE, OTHER ==
[~2018-07-12] VITALS: Ht 157.5 cm; Wt 86.4 kg
[2018-07-12 13:01] VITALS: BP 153/69
--- NOTE | 2018-07-12 13:22 | REP ---
CT Head without contrast HISTORY: Trauma COMPARISON: 05/16/2015 Areas of decreased attenuation are present in the periventricular white matter. This represents small-vessel ischemic disease. There is no intraparenchymal hemorrhage, acute infarct, mass or midline shift. The ventricular system and cortical sulci are dilated consistent with minimal volume loss. There is no extra cerebral collection. There is no fracture. The visualized sinuses are clear. Soft tissue swelling is present over the right parietal and temporal bones. IMPRESSION: 1. Small vessel ischemic disease. 2. Minimal volume loss. Electronically Signed by Ambrose Mercedes MD 07/12/2018 01:14 P
--- NOTE | 2018-07-12 13:29 | REP ---
CT cervical spine without contrast HISTORY: Trauma COMPARISON: None There is no acute fracture or subluxation. Disc bulges with associated osteophyte formation are present at the C2-3, C3-4, C5-6, and C6-7 levels. A disc bulge is present at the C4-5 level. There is minimal narrowing of the spinal canal. Uncinate process and/or facet hypertrophy are present at the C2-3 through C7-T1 levels. These findings produce minimal to mild narrowing of the neural foramina. The cervical intervertebral discs are decreased in height consistent with disc degeneration. There 2 mm of retrolisthesis of C3-4 and 2 mm of anterior subluxation of C5-6. IMPRESSION: 1. There is no acute fracture or subluxation. 2. There is cervical spondylosis at the C2-3 through C7-T1 levels. Electronically Signed by Ambrose Mercedes MD 07/12/2018 01:20 P
--- NOTE | 2018-07-12 14:31 | REP ---
AP pelvis single view: There are bilateral total hip arthroplasties. There is no pelvic fracture. There is no fracture or dislocation of the arthroplasties. There are no calcifications or foreign bodies. Right hip two views: There is a total hip arthroplasty with the components tightly applied and in satisfactory positions alignment. There is no fracture or dislocation. There are no calcifications or foreign bodies except for calcified vascular atheroma in the femoral artery. Electronically Signed by Uriel Borrero MD 07/12/2018 02:23 P
--- NOTE | 2018-07-12 14:32 | REP ---
Right hip four views: There is demineralization. 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 There is no fracture or dislocation. There is no effusion. There are no calcifications or foreign bodies. Electronically Signed by Uriel Borrero MD 07/12/2018 02:24 P
== END 2018-07-12 15:37 | disposition home or self-care (01) ==
LOC: M ED 12:41
DX: S00.03XA Contusion of scalp, initial encounter (principal); S70.01XA Contusion of right hip, initial encounter; S80.01XA Contusion of right knee, initial encounter; S50.311A Abrasion of right elbow, initial encounter; W18.39XA Other fall on same level, initial encounter; Y92.512 Supermarket, store or market as the place of occurrence of the external cause; Z79.01 Long term (current) use of anticoagulants

== ENCOUNTER → 2018-10-21 | Outpatient (REF) | payer MEDICARE, OTHER ==
[2018-10-21 14:03] LABS: BASO % 0.3 % (0.0-1.0); EOS # 0.1 10^3/uL (0.0-0.50); EOS % 1.6 % (0.0-3.0); HEMATOCRIT 34.8 % (36.0-47.0); HEMOGLOBIN 11.4 g/dl (12.0-15.5); LYMPH # 1.7 10^3/uL (1.5-4.5); LYMPH % 23.5 % (24.0-44.0); MEAN CORPUSCULAR HGB CONC 32.8 g/dl (32.0-36.5); MEAN CORPUSCULAR VOLUME 97.8 fl (80.0-96.0); MONO # 0.5 10^3/uL (0.0-0.8); MONO % 6.4 % (0.0-5.0); NEUTROPHILS % 67.8 % (36.0-66.0); PLATELET COUNT, AUTOMATED 168 10^3/uL (150-450); RED BLOOD COUNT 3.56 10^6/uL (4.00-5.40); WHITE BLOOD COUNT 7.3 10^3/uL (4.0-10.0)
[2018-10-21 14:13] LABS: ALBUMIN 3.6 GM/DL (3.2-5.2); ALT/SGPT 25 U/L (12-78); BILIRUBIN,TOTAL 0.7 MG/DL (0.2-1.0); BLOOD UREA NITROGEN 23 MG/DL (7-18); CARBON DIOXIDE LEVEL 26 MEQ/L (21-32); CHLORIDE LEVEL 106 MEQ/L (98-107); CHOLESTEROL LEVEL 137 MG/DL (<200); CHOLESTEROL RISK RATIO 2.978 (<5); CREATININE FOR GFR 0.88 MG/DL (0.55-1.30); GLOMERULAR FILTRATION RATE > 60.0 (>39); GLUCOSE, FASTING 190 MG/DL (70-100); HDL CHOLESTEROL 46 MG/DL (>40); LDL CHOLESTEROL 36 MG/DL (<100); NON-HDL-C 91 MG/DL; POTASSIUM SERUM 3.9 MEQ/L (3.5-5.1); SODIUM LEVEL 140 MEQ/L (136-145); TOTAL PROTEIN 6.6 GM/DL (6.4-8.2); TRIGLYCERIDES LEVEL 277 MG/DL (<150)
== END ==
LOC: M LABDRAW1 12:31
PROVIDERS: ATTEND Internal Medicine Cardiovascular Disease
DX: I50.32 Chronic diastolic (congestive) heart failure (principal); I25.10 Atherosclerotic heart disease of native coronary artery without angina pectoris; Z95.2 Presence of prosthetic heart valve

== ENCOUNTER → 2018-12-04 | Outpatient (REF) | payer MEDICARE, OTHER ==
[2018-12-04 15:45] LABS: BASO % 0.3 % (0.0-1.0); EOS # 0.1 10^3/uL (0.0-0.5); EOS % 1.8 % (0.0-3.0); HEMATOCRIT 33.7 % (36.0-47.0); HEMOGLOBIN 11.3 g/dl (12.0-15.5); LYMPH # 1.5 10^3/uL (1.5-5.0); LYMPH % 22.9 % (24.0-44.0); MEAN CORPUSCULAR HEMOGLOBIN 32.7 pg (27.0-33.0); MEAN CORPUSCULAR HGB CONC 33.5 g/dl (32.0-36.5); MEAN CORPUSCULAR VOLUME 97.4 fl (80.0-96.0); MONO # 0.5 10^3/uL (0.0-0.8); MONO % 7.7 % (0.0-5.0); NEUTROPHILS # 4.5 10^3/uL (1.5-8.5); NEUTROPHILS % 66.8 % (36.0-66.0); PLATELET COUNT, AUTOMATED 166 10^3/uL (150-450); RED BLOOD COUNT 3.46 10^6/uL (4.00-5.40); WHITE BLOOD COUNT 6.7 10^3/uL (4.0-10.0)
[2018-12-04 15:52] LABS: ALBUMIN 3.5 GM/DL (3.2-5.2); CALCIUM LEVEL 9.7 MG/DL (8.8-10.2); CREATININE FOR GFR 1.26 MG/DL (0.55-1.30); GLOMERULAR FILTRATION RATE 43.8 (>39); PHOSPHORUS LEVEL 2.8 MG/DL (2.5-4.9); POTASSIUM SERUM 3.8 MEQ/L (3.5-5.1)
== END ==
LOC: M LABDRAW1 14:28
PROVIDERS: ATTEND Internal Medicine Cardiovascular Disease
DX: R06.02 Shortness of breath (principal); Z95.2 Presence of prosthetic heart valve; I50.32 Chronic diastolic (congestive) heart failure

== ENCOUNTER → 2020-09-03 | Outpatient (REF) | payer MEDICARE, OTHER ==
[~2020-09-03] MED LIST changes: +ACET650T61 PO; +ASPI-546 PO; +ASPI-569 PO; -ASPI1TAB15 PO; -ASPI81TAEC PO; -COUM1TAB14 PO; +COUM4TAB8 PO; -MECL-68 PO; +MECL1TAB31 PO; -TYLE650T35 PO
== END ==
LOC: M LAB REF 13:20
PROVIDERS: ATTEND Podiatrist Foot & Ankle Surgery
DX: L03.031 Cellulitis of right toe (principal)

== ENCOUNTER 2021-06-03 15:56 | Emergency (ER) | payer MEDICARE, OTHER ==
[~2021-06-03 15:56] MED LIST changes: -AMPI2INJ2 IV; +AMPI2INJ3 IV
[2021-06-03 21:01] VITALS: BP 130/80
== END 2021-06-03 21:56 | disposition home or self-care (01) ==
LOC: EDBD 15:56 → M ED 15:56
DX: S83.91XA Sprain of unspecified site of right knee, initial encounter (principal); W10.1XXA Fall (on)(from) sidewalk curb, initial encounter; K44.9 Diaphragmatic hernia without obstruction or gangrene; Z87.19 Personal history of other diseases of the digestive system; Z95.1 Presence of aortocoronary bypass graft; Y92.9 Unspecified place or not applicable; Y93.9 Activity, unspecified; Y99.9 Unspecified external cause status; Z88.8 Allergy status to other drugs, medicaments and biological substances; Z79.4 Long term (current) use of insulin; Z79.899 Other long term (current) drug therapy; E11.9 Type 2 diabetes mellitus without complications

== ENCOUNTER → 2021-07-22 | Outpatient (CLI) | payer MEDICARE, OTHER | LOC: M RAD 14:30 | PROVIDERS: ATTEND Podiatrist Foot & Ankle Surgery | DX: I73.9 Peripheral vascular disease, unspecified (principal) ==

== ENCOUNTER → 2021-08-16 | Outpatient (POV) | payer MEDICARE, OTHER ==
[~2021-08-16] VITALS: Ht 157.5 cm; Wt 77.3 kg
[2021-08-16 10:50] VITALS: BP 151/80
== END ==
LOC: M IRPOV 10:33
PROVIDERS: ATTEND Radiology Diagnostic Radiology
DX: L97.529 Non-pressure chronic ulcer of other part of left foot with unspecified severity (principal); R93.6 Abnormal findings on diagnostic imaging of limbs; I25.10 Atherosclerotic heart disease of native coronary artery without angina pectoris; Z88.8 Allergy status to other drugs, medicaments and biological substances

== ENCOUNTER → 2022-01-03 | Outpatient (CLI) | payer MEDICARE, OTHER | LOC: M RAD 14:10 | PROVIDERS: ATTEND Nurse Practitioner Family | DX: I65.23 Occlusion and stenosis of bilateral carotid arteries (principal) ==

== ENCOUNTER → 2022-03-15 | Outpatient (REF) | payer MEDICARE, OTHER ==
[~2022-03-15] MED LIST changes: +CLOP75TA99 PO; -PLAV1TAB2 PO
== END ==
LOC: M LAB REF 16:25
PROVIDERS: ATTEND Nurse Practitioner Adult Health
DX: E83.52 Hypercalcemia (principal)

== ENCOUNTER → 2022-03-24 | Outpatient (REF) | payer MEDICARE, OTHER | LOC: M LAB REF 16:32 | PROVIDERS: ATTEND Podiatrist Foot & Ankle Surgery | DX: L03.031 Cellulitis of right toe (principal) ==

== ENCOUNTER → 2022-07-17 | Outpatient (REF) | payer MEDICARE, OTHER | LOC: M LAB REF 16:20 | PROVIDERS: ATTEND Nurse Practitioner Adult Health | DX: E21.2 Other hyperparathyroidism (principal) ==

== ENCOUNTER → 2022-07-21 | Outpatient (REF) | payer MEDICARE, OTHER | LOC: M LAB REF 16:35 → EEVIPCON 16:35 | PROVIDERS: ATTEND Podiatrist Foot & Ankle Surgery | DX: L03.031 Cellulitis of right toe (principal) ==

== ENCOUNTER → 2022-10-06 | Outpatient (CLI) | payer MEDICARE, OTHER ==
[~2022-10-06] MED LIST changes: -ROPI0.253 PO; +ROPI5TAB19 PO
== END ==
LOC: M RAD 12:26
PROVIDERS: ATTEND Surgery Vascular Surgery
DX: I73.9 Peripheral vascular disease, unspecified (principal)

== ENCOUNTER → 2023-01-31 | Outpatient (CLI) | payer MEDICARE, OTHER ==
[~2023-01-31] MED LIST changes: +MECL-209 PO; -MECL1TAB31 PO
== END ==
LOC: M PLAIMG 15:02
PROVIDERS: ATTEND Physician Assistant Surgical
DX: M17.11 Unilateral primary osteoarthritis, right knee (principal); Z13.820 Encounter for screening for osteoporosis; M85.88 Other specified disorders of bone density and structure, other site

== ENCOUNTER → 2023-01-31 | Outpatient (CLI) | payer MEDICARE, OTHER | LOC: M WHC 15:01 | PROVIDERS: ATTEND Physician Assistant Surgical | DX: Z13.820 Encounter for screening for osteoporosis (principal); M17.11 Unilateral primary osteoarthritis, right knee; M85.88 Other specified disorders of bone density and structure, other site ==

== ENCOUNTER 2023-05-09 13:28 | Inpatient (IN) | payer OTHER, MEDICARE ==
[~2023-05-09] VITALS: Ht 157.5 cm; Wt 78.6 kg
[2023-05-09] MEDS ORDERED: FURO20TA2 PO (14:22)
[2023-05-09] MEDS ORDERED: FARX1TAB3 PO (14:37)
[2023-05-09] MEDS: LIDOCAINE 1% MDV 20ML VIAL SC ONE (17:00)
[2023-05-09] MEDS ORDERED: PILL CUTTER 1 EACH XX PRN (18:05)
[2023-05-09] MEDS: diazePAM 2 MG TAB PO ONE (18:09)
[2023-05-09] MEDS ORDERED: HOME MED LIST COMPLETE! XX SCH (19:50)
[2023-05-09 20:10] LABS: BASO % 0.3 % (0.0-1.0); EOS % 0.3 % (0.0-3.0); HEMATOCRIT 39.4 % (36.0-47.0); HEMOGLOBIN 12.9 g/dl (12.0-15.5); LYMPH # 1.3 10^3/uL (1.5-5.0); LYMPH % 13.1 % (24.0-44.0); MEAN CORPUSCULAR HEMOGLOBIN 31.9 pg (27.0-33.0); MEAN CORPUSCULAR HGB CONC 32.7 g/dl (32.0-36.5); MEAN CORPUSCULAR VOLUME 97.3 fl (80.0-96.0); MONO # 0.6 10^3/uL (0.0-0.8); MONO % 5.9 % (2.0-8.0); NEUTROPHILS # 8.1 10^3/uL (1.5-8.5); NEUTROPHILS % 80.2 % (36.0-66.0); PLATELET COUNT, AUTOMATED 171 10^3/uL (150-450); RED BLOOD COUNT 4.05 10^6/uL (4.00-5.40)
[2023-05-09 20:17] LABS: INR 1.18; PROTHROMBIN TIME 14.7 SECONDS (12.5-14.5)
[2023-05-09 20:18] LABS: PARTIAL THROMBOPLASTIN TIME 29.3 SECONDS (24.8-34.2)
[2023-05-09 20:23] LABS: BLOOD UREA NITROGEN 20 MG/DL (9-23); CALCIUM LEVEL 9.9 MG/DL (8.3-10.6); CARBON DIOXIDE LEVEL 27 MMOL/L (20-31); CHLORIDE LEVEL 105 MMOL/L (98-107); CREATININE FOR GFR 0.66 MG/DL (0.55-1.30); GLOMERULAR FILTRATION RATE > 60.0 (>32); GLUCOSE, FASTING 145 MG/DL (74-106); POTASSIUM SERUM 4.3 MMOL/L (3.5-5.1); SODIUM LEVEL 139 MMOL/L (136-145)
[2023-05-09] MEDS ORDERED: MOM 30ML SUSPENSION UDC PO PRN (23:00)
[2023-05-09 23:35] LABS: RSV AMPLIFICATION NEGATIVE (NEGATIVE)
[2023-05-10 00:05] VITALS: BP 139/71; TEMP 97.7; O2SAT 94
[2023-05-10] MEDS: MORPHINE 2 MG/ML 1ML VIAL IV PRN (01:35)
[2023-05-10] MEDS ORDERED: MORPHINE 4 MG/ML 1ML VIAL IV PRN (03:05)
[2023-05-10] MEDS: ACETAMINOPHEN TAB 650MG DOSE (2X325MG) PO PRN (05:17)
[2023-05-10 05:21] VITALS: BP 144/57; TEMP 97.9; O2SAT 94
[2023-05-10 06:39] LABS: HEMATOCRIT 35.5 % (36.0-47.0); HEMOGLOBIN 11.9 g/dl (12.0-15.5); MEAN CORPUSCULAR HEMOGLOBIN 32.5 pg (27.0-33.0); MEAN CORPUSCULAR HGB CONC 33.5 g/dl (32.0-36.5); PLATELET COUNT, AUTOMATED 155 10^3/uL (150-450); RED BLOOD COUNT 3.66 10^6/uL (4.00-5.40); WHITE BLOOD COUNT 7.7 10^3/uL (4.0-10.0)
[2023-05-10 07:01] LABS: ALBUMIN 3.5 G/DL (3.2-5.2); ALKALINE PHOSPHATASE 111 U/L (46-116); ALT/SGPT 13 U/L (7.0-40); AST/SGOT 11 U/L (<34); BILIRUBIN,TOTAL 1.1 MG/DL (0.3-1.2); BLOOD UREA NITROGEN 23 MG/DL (9-23); CALCIUM LEVEL 10.2 MG/DL (8.3-10.6); CARBON DIOXIDE LEVEL 24 MMOL/L (20-31); CHLORIDE LEVEL 107 MMOL/L (98-107); CREATININE FOR GFR 0.67 MG/DL (0.55-1.30); GLOMERULAR FILTRATION RATE > 60.0 (>32); GLUCOSE, FASTING 131 MG/DL (74-106); POTASSIUM SERUM 4.2 MMOL/L (3.5-5.1); SODIUM LEVEL 140 MMOL/L (136-145); TOTAL PROTEIN 5.8 G/DL (5.7-8.2)
[2023-05-10] MEDS: FUROSEMIDE 20 MG TAB PO SCH (09:01)
[2023-05-10] MEDS: PANTOPRAZOLE 40MG TAB (PROTONIX) PO SCH (09:01)
[2023-05-10] MEDS: METOPROLOL SUCC (TopROL XL) 50MG **XL** TAB PO SCH (09:01)
[2023-05-10] MEDS: DOCUSATE SODIUM 100MG CAPSULE PO SCH (09:02)
[2023-05-10] MEDS: MAGNESIUM OXIDE 400MG TAB (MAG-OX) PO SCH (09:02)
[2023-05-10] MEDS: SPIRONOLACTONE 12.5MG PER 1/2 TABLET PO SCH (09:02)
[2023-05-10 14:00] VITALS: BP 138/74; TEMP 98.2; O2SAT 97
[2023-05-10 19:41] VITALS: BP 130/56; TEMP 97.7; O2SAT 93
[2023-05-10] MEDS: ATORVASTATIN 20 MG TAB PO SCH (20:38)
[2023-05-11] MEDS: diphenhydrAMINE 25MG CAP PO ONE (00:10)
[2023-05-11 06:18] VITALS: BP 142/67; TEMP 97.5; O2SAT 94
[2023-05-11 14:00] VITALS: BP 145/69; TEMP 97.7; O2SAT 95
[2023-05-11] MEDS ORDERED: ONDANSETRON 4MG 2ML VIAL As Ordered ONE (15:28)
[2023-05-11] MEDS ORDERED: propofoL 200 MG/20 ML VIAL As Ordered ONE (15:28)
[2023-05-11] MEDS ORDERED: LIDOCAINE 2% 100MG/5ML SDV (FOR ANES.) As Ordered ONE (15:28)
[2023-05-11] MEDS ORDERED: fentaNYL 250 MCG/5 ML INJECTION As Ordered ONE (15:54)
[2023-05-11] MEDS ORDERED: MIDAZOLAM INJ 2MG/2ML VIAL As Ordered ONE (15:55)
[2023-05-11] MEDS ORDERED: ACETAMINOPHEN 1000MG 100ML IV BAG As Ordered ONE (17:09)
[2023-05-11] MEDS: BACITRACIN OINTMENT 30GM TUBE As Ordered ONE (17:46)
[2023-05-11] MEDS ORDERED: fentaNYL 100 MCG/2 ML INJECTION IV PRN (17:50)
[2023-05-11] MEDS ORDERED: ONDANSETRON 4MG 2ML VIAL IV PRN (17:50)
[2023-05-11] MEDS ORDERED: oxyCODONE 5MG TAB PO PRN (17:50)
[2023-05-11 21:23] VITALS: BP 118/56; TEMP 97.9; O2SAT 93
[2023-05-12 06:00] VITALS: BP 155/71; TEMP 97.5; O2SAT 96
[2023-05-12 07:48] LABS: HEMATOCRIT 36.3 % (36.0-47.0); MEAN CORPUSCULAR HEMOGLOBIN 31.9 pg (27.0-33.0); MEAN CORPUSCULAR HGB CONC 33.1 g/dl (32.0-36.5); MEAN CORPUSCULAR VOLUME 96.5 fl (80.0-96.0); PLATELET COUNT, AUTOMATED 156 10^3/uL (150-450); RED BLOOD COUNT 3.76 10^6/uL (4.00-5.40); WHITE BLOOD COUNT 6.5 10^3/uL (4.0-10.0)
[2023-05-12] MEDS ORDERED: rOPINIRole 0.25 MG TAB(REQUIP) PO PRN (10:25)
[2023-05-12] MEDS: CLOPIDOGREL 75 MG TAB PO SCH (11:33)
[2023-05-12] MEDS: DAPAGLIFLOZIN PROPANEDIOL 10MG TABLET (FARXIGA) PO SCH (11:36)
[2023-05-12] MEDS: APIXABAN 2.5 MG TAB (ELIQUIS) PO SCH (11:37)
[2023-05-12] MEDS: NORCO, ANEXSIA 5/325MG TABLET (HYDROcodone/ACETAMINOPHEN) PO PRN (11:37)
[2023-05-12 11:41] VITALS: BP 142/72
== END 2023-05-12 17:00 | disposition home or self-care (01) | DRG 563 ==
LOC: EDBD 13:28 → M ED 13:28 → M ED INP 22:57 → ENRESERV 23:28 → M MS5PR 23:59
PROVIDERS: ADMIT Family Medicine; ATTEND Family Medicine
DX: S63.511A Sprain of carpal joint of right wrist, initial encounter (principal); I10 Essential (primary) hypertension; Z86.73 Personal history of transient ischemic attack (TIA), and cerebral infarction without residual deficits; I25.10 Atherosclerotic heart disease of native coronary artery without angina pectoris; M19.90 Unspecified osteoarthritis, unspecified site; K44.9 Diaphragmatic hernia without obstruction or gangrene; Z96.643 Presence of artificial hip joint, bilateral; Z79.01 Long term (current) use of anticoagulants; W18.30XA Fall on same level, unspecified, initial encounter; Z79.899 Other long term (current) drug therapy; Z88.8 Allergy status to other drugs, medicaments and biological substances; Z95.2 Presence of prosthetic heart valve; T45.515A Adverse effect of anticoagulants, initial encounter; Y92.531 Health care provider office as the place of occurrence of the external cause

== ENCOUNTER → 2023-05-23 | Outpatient (CLI) | payer MEDICARE, OTHER ==
[~2023-05-23] MED LIST changes: +FARX1TAB3 PO; +FURO20TA2 PO
== END ==
LOC: M SOG 14:57
PROVIDERS: ATTEND Orthopaedic Surgery
DX: M25.561 Pain in right knee (principal)

== ENCOUNTER → 2023-06-27 | Outpatient (CLI) | payer MEDICARE, OTHER | LOC: M SOG 07:58 | PROVIDERS: ATTEND Physician Assistant | DX: M25.531 Pain in right wrist (principal) ==

== ENCOUNTER → 2023-07-04 | Outpatient (CLI) | payer MEDICARE, OTHER | LOC: M SOG 11:24 | PROVIDERS: ATTEND Physician Assistant | DX: M25.531 Pain in right wrist (principal); M19.031 Primary osteoarthritis, right wrist ==

== ENCOUNTER → 2023-07-20 | Outpatient (REF) | payer MEDICARE, OTHER ==
[2023-07-20 16:40] LABS: INR 1.32
== END ==
LOC: M LAB REF 16:09
PROVIDERS: ATTEND Internal Medicine
DX: Z01.818 Encounter for other preprocedural examination (principal); Z79.01 Long term (current) use of anticoagulants

== ENCOUNTER → 2023-08-24 | Outpatient (REF) | payer MEDICARE, OTHER ==
[2023-08-24 18:19] LABS: PERCENT SATURATION 15.8 % (13.2-45.0)
[2023-08-24 18:20] LABS: FERRITIN 73.5 NG/ML (7.3-270.7)
== END ==
LOC: M LAB REF 16:24
PROVIDERS: ATTEND Nurse Practitioner Adult Health
DX: M17.11 Unilateral primary osteoarthritis, right knee (principal); D50.9 Iron deficiency anemia, unspecified

== ENCOUNTER → 2023-09-12 | Outpatient (REF) | payer MEDICARE, OTHER | LOC: M LAB REF 11:57 | PROVIDERS: ATTEND Family Medicine | DX: R05.9 Cough, unspecified (principal) ==

== ENCOUNTER → 2024-01-15 | Outpatient (REF) | payer MEDICARE, OTHER | LOC: M LAB REF 13:48 | PROVIDERS: ATTEND Podiatrist Foot & Ankle Surgery | DX: Z89.422 Acquired absence of other left toe(s) (principal); M86.172 Other acute osteomyelitis, left ankle and foot ==

== ENCOUNTER 2024-03-27 18:01 | Emergency (ER) | payer MEDICARE, OTHER ==
[~2024-03-27] VITALS: Ht 152.4 cm; Wt 77.1 kg
[2024-03-27 18:07] VITALS: TEMP 98.2; O2SAT 93
[2024-03-27 18:13] VITALS: BP 134/58
== END 2024-03-27 20:02 | disposition left against medical advice (07) ==
LOC: M ED 18:01
DX: Z53.21 Procedure and treatment not carried out due to patient leaving prior to being seen by health care provider (principal)

== ENCOUNTER → 2024-04-10 | Outpatient (CLI) | payer MEDICARE, OTHER | LOC: M PLAIMG 11:00 | PROVIDERS: ATTEND Orthopaedic Surgery Adult Reconstructive Orthopaedic Surgery | DX: M25.562 Pain in left knee (principal); Z47.1 Aftercare following joint replacement surgery; Z96.651 Presence of right artificial knee joint ==

== ENCOUNTER → 2024-07-02 | Outpatient (CLI) | payer MEDICARE, OTHER | LOC: M SOG 07:55 | PROVIDERS: ATTEND Physician Assistant | DX: M25.531 Pain in right wrist (principal); M19.031 Primary osteoarthritis, right wrist; E21.2 Other hyperparathyroidism ==

== ENCOUNTER → 2024-07-02 | Outpatient (REF) | payer MEDICARE, OTHER ==
[2024-07-02 15:06] LABS: PTH INTACT 150.1 PG/ML (18.5-88.0)
[2024-07-02 18:10] LABS: TOTAL 25(OH) VITAMIN D 32.4 NG/ML (20.0-100.0)
== END ==
LOC: M LAB REF 14:31
PROVIDERS: ATTEND Nurse Practitioner Adult Health
DX: E21.2 Other hyperparathyroidism (principal)

== ENCOUNTER 2024-09-21 10:37 | Emergency (ER) | payer MEDICARE, OTHER ==
[~2024-09-21] VITALS: Ht 154.9 cm; Wt 76.4 kg
[~2024-09-21 10:37] MED LIST changes: +LIDO1ADH93 TOP; -LIDO5DIS41 TD; -PREG50CA PO; +PREG50CA87 PO
[2024-09-21 11:11] LABS: BASO % 0.2 % (0.0-1.0); EOS % 0.2 % (0.0-3.0); HEMATOCRIT 37.6 % (36.0-47.0); HEMOGLOBIN 12.3 g/dl (12.0-15.5); LYMPH # 0.4 10^3/uL (1.5-5.0); LYMPH % 6.9 % (24.0-44.0); MEAN CORPUSCULAR HEMOGLOBIN 33.6 pg (27.0-33.0); MEAN CORPUSCULAR HGB CONC 32.7 g/dl (32.0-36.5); MEAN CORPUSCULAR VOLUME 102.7 fl (80.0-96.0); MONO # 0.1 10^3/uL (0.0-0.8); MONO % 2.3 % (2.0-8.0); NEUTROPHILS # 5.1 10^3/uL (1.5-8.5); NEUTROPHILS % 90.2 % (36.0-66.0); PLATELET COUNT, AUTOMATED 137 10^3/uL (150-450); RED BLOOD COUNT 3.66 10^6/uL (4.00-5.40); WHITE BLOOD COUNT 5.7 10^3/uL (4.0-10.0)
[2024-09-21 11:37] LABS: CK-MB VALUE MASS < 1.0 NG/ML (<3.6)
[2024-09-21 11:38] LABS: ALBUMIN 3.6 G/DL (3.2-5.2); ALKALINE PHOSPHATASE 504 U/L (35-104); ALT/SGPT 470 U/L (7.0-40); AST/SGOT 889 U/L (<34); BILIRUBIN,DIRECT 2.3 MG/DL (<0.4); BILIRUBIN,TOTAL 3.7 MG/DL (0.3-1.2); BLOOD UREA NITROGEN 26 MG/DL (9-23); CALCIUM LEVEL 10.4 MG/DL (8.3-10.6); CARBON DIOXIDE LEVEL 26 MMOL/L (20-31); CHLORIDE LEVEL 107 MMOL/L (98-107); CPK CREATINE PHOSPHOKINASE 38 U/L (34-145); CREATININE FOR GFR 0.87 MG/DL (0.55-1.30); GLOMERULAR FILTRATION RATE 66.1 (>32); GLUCOSE, FASTING 214 MG/DL (74-106); POTASSIUM SERUM 4.3 MMOL/L (3.5-5.1); SODIUM LEVEL 145 MMOL/L (136-145)
[2024-09-21 11:56] LABS: LIPASE 3426 U/L (12-53)
[2024-09-21] MEDS ORDERED: ACET500T15 PO (12:32)
[2024-09-21] MEDS ORDERED: LOMO2.5T PO (12:32)
[2024-09-21] MEDS ORDERED: MAGN500T12 PO (12:32)
[2024-09-21] MEDS ORDERED: PANT40TA29 PO (12:32)
[2024-09-21] MEDS ORDERED: HOME MED LIST COMPLETE! XX SCH (12:35)
[2024-09-21] MEDS ORDERED: SPIRONOLACTONE 12.5MG PER 1/2 TABLET PEG ONE (13:35)
[2024-09-21] MEDS: NS (Normal Saline) 0.9% 1,000 ML IV SCH (13:43)
[2024-09-21 14:00] VITALS: BP 130/61
[2024-09-21] MEDS: METOPROLOL SUCC. 50 MG *XL* TAB PO ONE (14:00)
[2024-09-21] MEDS: SPIRONOLACTONE 12.5MG PER 1/2 TABLET PO ONE (14:00)
[2024-09-21] MEDS: FUROSEMIDE 20 MG TAB PO ONE (14:03)
[2024-09-21] MEDS: ONDANSETRON 4MG 2ML VIAL IV ONE (15:58)
[2024-09-21] MEDS: fentaNYL 100 MCG/2 ML INJECTION IV ONE (15:58)
[2024-09-21 16:08] LABS: BASO % 0.2 % (0.0-1.0); LYMPH # 0.3 10^3/uL (1.5-5.0); LYMPH % 5.1 % (24.0-44.0); MONO # 0.4 10^3/uL (0.0-0.8); MONO % 5.6 % (2.0-8.0); NEUTROPHILS # 5.7 10^3/uL (1.5-8.5); NEUTROPHILS % 88.6 % (36.0-66.0); WHITE BLOOD COUNT 6.4 10^3/uL (4.0-10.0)
[2024-09-21] MEDS: LORazepam 2 MG/ML 1 ML VIAL IV STA (16:43)
[2024-09-21 17:13] LABS: ALBUMIN 3.4 G/DL (3.2-5.2); BILIRUBIN,TOTAL 4.3 MG/DL (0.3-1.2); TOTAL PROTEIN 5.8 G/DL (5.7-8.2)
[2024-09-21] MEDS ORDERED: PILL CUTTER 1 EACH XX ONE (23:55)
[2024-09-21] MEDS: HYDROmorphone 2 MG TAB PO ONE (23:58)
[2024-09-22] MEDS: fentaNYL 100 MCG/2 ML INJECTION IV ONE (03:00)
[2024-09-22] MEDS: HYDROmorphone 2 MG TAB PO ONE (06:56)
[2024-09-22 07:59] VITALS: BP 122/67; TEMP 98.5; O2SAT 97
== END 2024-09-22 07:59 | disposition short-term general hospital (02) ==
LOC: M ED 10:37
DX: K85.10 Biliary acute pancreatitis without necrosis or infection (principal); K80.50 Calculus of bile duct without cholangitis or cholecystitis without obstruction; Z90.5 Acquired absence of kidney; N28.1 Cyst of kidney, acquired; I44.0 Atrioventricular block, first degree; I45.10 Unspecified right bundle-branch block; K21.9 Gastro-esophageal reflux disease without esophagitis; N18.30 Chronic kidney disease, stage 3 unspecified; I10 Essential (primary) hypertension; E11.9 Type 2 diabetes mellitus without complications; F17.200 Nicotine dependence, unspecified, uncomplicated; F10.10 Alcohol abuse, uncomplicated; Z88.8 Allergy status to other drugs, medicaments and biological substances; Z79.01 Long term (current) use of anticoagulants; Z86.718 Personal history of other venous thrombosis and embolism; Z86.79 Personal history of other diseases of the circulatory system; Z86.73 Personal history of transient ischemic attack (TIA), and cerebral infarction without residual deficits; Z79.1 Long term (current) use of non-steroidal anti-inflammatories (NSAID); Z79.02 Long term (current) use of antithrombotics/antiplatelets; Z79.899 Other long term (current) drug therapy
CPT/HCPCS: 36415; 71045; 74181; 76705; 80047; 80048; 80076; 82550; 82553; 83605; 83690; 84484; 85025; 93005; 93041; 96361; 96374; 96375; 96376; 99285; J2060; J2405; J3010

== ENCOUNTER → 2024-12-01 | Outpatient (REF) | payer MEDICARE, OTHER ==
[~2024-12-01] MED LIST changes: +ACET500T15 PO; +LOMO2.5T PO; +MAGN500T12 PO; +PANT40TA29 PO
== END ==
LOC: M LAB REF 14:22
PROVIDERS: ATTEND Nurse Practitioner Adult Health
DX: I48.0 Paroxysmal atrial fibrillation (principal); I44.0 Atrioventricular block, first degree

== ENCOUNTER → 2024-12-08 | Outpatient (CLI) | payer MEDICARE, OTHER | LOC: M WHC 07:29 | PROVIDERS: ATTEND Nurse Practitioner Adult Health | DX: K80.80 Other cholelithiasis without obstruction (principal) ==